=== PATIENT | male | born 1955 | race Caucasian/White ===

== ENCOUNTER → 2017-12-07 10:24 | Outpatient (CLI) | payer OTHER, SELFPAY ==
[2017-12-07 13:07] LABS: AST(SGOT) 36 U/L (15-37); Alanine Aminotransfer ALT/SGPT 32 U/L (16-61); Albumin, Serum 3.6 g/dL (3.2-5.0); Alkaline Phosphatase 138 U/L (45-117); Bilirubin, Direct 0.37 mg/dL (0.00-0.30); Globulin 3.8 g/dL (2.2-4.2); Protein, Total 7.4 g/dL (6.4-8.2)
[2017-12-08 15:30] LABS: Anti-Smooth Muscle ABS 32 Units (0-19); Ceruloplasmin 22.3 mg/dL (16.0-31.0)
[2017-12-12 16:08] LABS: Alpha Antitrypsin Serum 156 mg/dL (90-200)
[2017-12-13 15:19] LABS: ANTINUCLEAR ANTIBODIES DIRECT Negative (Negative); Anti-Mitochondrial AB <20.0 Units (0.0-20.0)
== END ==
PROVIDERS: Family Provider Family Medicine; PCP Family Medicine; Visit Provider Internal Medicine Gastroenterology
DX: K74.60 Unspecified cirrhosis of liver (principal)
CPT/HCPCS: 36415; 80076; 82103; 82104; 82390; 83516; 86038

== ENCOUNTER → 2018-01-24 14:35 | Outpatient (CLI) | payer OTHER, SELFPAY ==
[2018-01-24 16:04] LABS: Erythrocyte Sedimentation Rate 10 mm/hr (0-20)
[2018-01-24 16:18] LABS: AST(SGOT) 47 U/L (15-37); Alanine Aminotransfer ALT/SGPT 50 U/L (16-61); Albumin, Serum 3.6 g/dL (3.2-5.0); Alkaline Phosphatase 170 U/L (45-117); Globulin 3.7 g/dL (2.2-4.2); Protein, Total 7.3 g/dL (6.4-8.2)
[2018-01-24 16:38] LABS: International Normalized Ratio 1.2; Partial Thromboplast Time 33.1 Seconds (24.1-36.2); Prothrombin Time (Protime)PT. 15.2 SECONDS (11.7-14.9)
== END ==
PROVIDERS: Family Provider Family Medicine; PCP Family Medicine; Visit Provider Internal Medicine Gastroenterology
DX: K74.60 Unspecified cirrhosis of liver (principal)
CPT/HCPCS: 36415; 80076; 85610; 85652; 85730

== ENCOUNTER → 2018-03-27 09:40 | Outpatient (CLI) | payer OTHER, SELFPAY ==
[2018-03-27 12:24] LABS: Absolute Lymphocyte Count 0.99 X10^3/ul (0.83-4.51); Absolute Neutrophil Count 2.2 X10^3/uL (2.0-7.7); Basophil# 0.02 X10^3/uL; Basophil% 0.5 % (0-1); Eosinophil# 0.07 X10^3/uL; Eosinophils% 1.9 % (0-5); Hematocrit 36.4 % (40-54); Hemoglobin 12.1 g/dl (13.0-16.5); Lymphocyte # 0.99 X10^3/ul (4.0); Lymphocyte % 26.3 % (19-41); Mean Corp Hgb Conc 33.2 g/gl (32-36); Mean Corpuscular Hgb 34.9 pg (27.0-32.0); Mean Corpuscular Volume 104.9 fL (80-94); Mean Platelet Vol. 11.2 fl (6.2-12.0); Monocyte# 0.49 X10^3/uL; Neutrophil % 58.3 % (47-70); Platelet Count 59 K/mm3 (150-450); RBC Distribution Width CV 16.5 % (11.6-14.6); RBC Distribution Width SD 62.8 fl (35.1-43.9); Red Blood Count 3.47 M/mm3 (4.6-6.2); White Blood Count 3.8 K/mm3 (4.4-11.0)
[2018-03-27 12:25] LABS: POSITIVE COUNT NO; POSITIVE DIFFERENTIAL NO; POSITIVE MORPHOLOGY NO
[2018-03-27 12:36] LABS: Ferritin 714 ng/mL (26-388); Iron 193 ug/dL (65-175); Iron Binding Capacity,Total 227 ug/dL (250-450)
[2018-03-27 17:46] LABS: Xtra Tube EP Lab EXTRA TUBE
== END ==
PROVIDERS: Family Provider Family Medicine; PCP Family Medicine; Visit Provider Internal Medicine Hematology & Oncology
DX: D50.9 Iron deficiency anemia, unspecified (principal)
CPT/HCPCS: 36415; 82728; 83540; 83550; 85025

== ENCOUNTER → 2018-06-26 08:59 | Outpatient (CLI) | payer OTHER, SELFPAY ==
[2018-06-26 10:21] LABS: Absolute Lymphocyte Count 0.83 X10^3/ul (0.83-4.51); Absolute Neutrophil Count 1.8 X10^3/uL (2.0-7.7); Basophil# 0.01 X10^3/uL; Basophil% 0.3 % (0-1); Eosinophil# 0.06 X10^3/uL; Eosinophils% 1.9 % (0-5); Hematocrit 36.3 % (40-54); Hemoglobin 12.2 g/dl (13.0-16.5); Lymphocyte # 0.83 X10^3/ul (4.0); Lymphocyte % 26.3 % (19-41); Mean Corp Hgb Conc 33.6 g/gl (32-36); Mean Corpuscular Hgb 35.9 pg (27.0-32.0); Mean Corpuscular Volume 106.8 fL (80-94); Mean Platelet Vol. 11.1 fl (6.2-12.0); Monocyte# 0.45 X10^3/uL; Monocyte% 14.2 % (0-10); Platelet Count 61 K/mm3 (150-450); RBC Distribution Width CV 15.1 % (11.6-14.6); White Blood Count 3.2 K/mm3 (4.4-11.0)
[2018-06-26 10:22] LABS: POSITIVE COUNT NO; POSITIVE DIFFERENTIAL NO; POSITIVE MORPHOLOGY NO
[2018-06-26 10:41] LABS: Ferritin 383 ng/mL (26-388); Iron 82 ug/dL (65-175); Iron Binding Capacity,Total 238 ug/dL (250-450); PERCENT IRON SATURATION 34.5 % (15.0-55.0)
[2018-06-26 17:04] LABS: Xtra Tube EP Lab EXTRA TUBE
== END ==
PROVIDERS: Family Provider Family Medicine; PCP Family Medicine; Referring Provider Internal Medicine Hematology & Oncology; Visit Provider Internal Medicine Hematology & Oncology
DX: D50.9 Iron deficiency anemia, unspecified (principal)
CPT/HCPCS: 36415; 82728; 83540; 83550; 85025

== ENCOUNTER → 2019-07-07 10:39 | Outpatient (CLI) | payer OTHER, SELFPAY ==
[2019-01-08 15:03] VITALS: BMI 34.9
[2019-07-07 12:12] LABS: Absolute Lymphocyte Count 0.83 X10^3/uL (0.83-4.51); Absolute Neutrophil Count 2.6 X10^3/uL (2.0-7.7); Basophil# 0.02 X10^3/uL; Basophil% 0.5 % (0-1); Eosinophil# 0.16 X10^3/uL; Eosinophils% 3.8 % (0-5); Hematocrit 28.7 % (40-54); Hemoglobin 8.9 g/dL (13.0-16.5); Lymphocyte # 0.83 X10^3/ul (4.0); Lymphocyte % 19.9 % (19-41); Mean Corpuscular Volume 96.6 fL (80-94); Mean Platelet Vol. 10.3 fl (6.2-12.0); Monocyte# 0.55 X10^3/uL; Monocyte% 13.2 % (0-10); NRBC Flagged by Analyzer 0 % (0-5); Neutrophil # 2.61 X10^3/uL (2.7-7.7); Neutrophil % 62.4 % (47-70); Platelet Count 63 K/mm3 (150-450); RBC Distribution Width CV 18.3 % (11.6-14.6); RBC Distribution Width SD 64.4 fl (35.1-43.9); Red Blood Count 2.97 M/mm3 (4.6-6.2); White Blood Count 4.2 K/mm3 (4.4-11.0)
[2019-07-07 12:30] LABS: Ferritin 24 ng/mL (26-388); Iron 109 ug/dL (65-175); Iron Binding Capacity,Total 349 ug/dL (250-450); PERCENT IRON SATURATION 31.2 % (15.0-55.0)
== END ==
PROVIDERS: Family Provider Family Medicine; PCP Family Medicine; Referring Provider Internal Medicine Hematology & Oncology; Visit Provider Internal Medicine Hematology & Oncology
DX: D64.9 Anemia, unspecified (principal); D69.6 Thrombocytopenia, unspecified
CPT/HCPCS: 36415; 82728; 83540; 83550; 85025

== ENCOUNTER → 2019-07-31 13:45 | Outpatient (CLI) | payer OTHER, SELFPAY ==
[2019-07-10 15:19] VITALS: BMI 35.2
[2019-07-31 13:13] VITALS: BMI 35.1
--- NOTE | 2019-07-31 13:46 | CT_ITS ---
STUDY: LOW DOSE CT LUNG CANCER SCREENING REASON FOR EXAM: Male, 63 years old. The patient smoked 3 packs per day for 36 years. The patient quit smoking 9 years ago. RADIATION DOSAGE (If Supplied By Facility): CTDIvol = ( 3.40 ) mGy, DLP = ( 108.49 ) mGycm TECHNIQUE: No contrast was administered. Low dose technique was utilized (average mAS-38 and kVp 120). 1.25 mm axial source images with a slice interval of 1.25-mm were reconstructed in lung windows. 2.5 mm axial source images with a slice interval of 2.5-mm were reconstructed in lung windows. 5.0 mm axial source images with a slice interval of 5.0-mm were reconstructed in soft tissue windows. Nodule measured using lung windows on PACS and/or independent workstation with automated measurement of minimum and maximum diameter. Nodule measurement reported as average diameter rounded to the nearest whole number. Growth is defined as an increase ins size of greater than 1.5 mm. COMPARISON: None. NODULES: No suspicious nodule seen. Emphysema: No significant emphysematous changes are present. Aorta: Atherosclerotic plaques of the aortic arch. Coronary arteries: Coronary artery calcification. Mediastinal nodes: Small benign-appearing mediastinal lymph nodes. Other chest and abdominal findings: Mild degree of degenerative changes of the thoracic vertebrae. CT/Low Dose CT Lung Screening IMPRESSION: Lung-RADS category 2 - Continue annual screening with LDCT in 12 months. IMPORTANT NOTES FOR USE: ACR Lung-RADS Version 1.0 Assessment Categories Release Date: January 07, 2014 Category: Coded 0-4 bases on nodule(s) with highest degree of suspicion. Negative screen is defined as categories 1 and 2; a positive screen is defined as categories 3 and 4. Category 3 and 4A nodules that are unchanged on interval CT should be coded as category 2, and individuals returned to screening in 12 months. Category 4X: Category 3 or 4 nodules with additional imaging findings that increase the suspicion of lung cancer, such as spiculation, GGN that doubles in size in 1 year, enlarged lymph notes, etc. Category Modifiers: S (significant finding unrelated to lung cancer) and C (prior history of treated lung cancer) may be added to the 0-4 Lung-RADS Electronically Signed: Ted Melara, at 14:38 EST , Service support ,
== END ==
PROVIDERS: Family Provider Family Medicine; PCP Family Medicine; Referring Provider Nurse Practitioner Family; Visit Provider Nurse Practitioner Family
DX: Z12.2 Encounter for screening for malignant neoplasm of respiratory organs (principal); Z87.891 Personal history of nicotine dependence
CPT/HCPCS: G0297

== ENCOUNTER → 2019-09-17 11:09 | Outpatient (CLI) | payer OTHER, SELFPAY ==
[2019-09-17 11:06] VITALS: BMI 35.1
[2019-09-17 11:28] LABS: Absolute Lymphocyte Count 0.86 X10^3/uL (0.83-4.51); Absolute Neutrophil Count 2.6 X10^3/uL (2.0-7.7); Basophil# 0.02 X10^3/uL; Basophil% 0.5 % (0-1); Eosinophil# 0.12 X10^3/uL; Hematocrit 30.6 % (40-54); Lymphocyte # 0.86 X10^3/ul (4.0); Lymphocyte % 21.2 % (19-41); Mean Corp Hgb Conc 32.7 g/dL (32-36); Mean Corpuscular Hgb 33.9 pg (27.0-32.0); Mean Corpuscular Volume 103.7 fL (80-94); Mean Platelet Vol. 10.4 fl (6.2-12.0); Monocyte# 0.47 X10^3/uL; Monocyte% 11.6 % (0-10); NRBC Flagged by Analyzer 0 % (0-5); Neutrophil # 2.57 X10^3/uL (2.7-7.7); Neutrophil % 63.2 % (47-70); POSITIVE COUNT YES; POSITIVE MORPHOLOGY YES; Platelet Count 66 K/mm3 (150-450); RBC Distribution Width CV 18.9 % (11.6-14.6); RBC Distribution Width SD 71.8 fl (35.1-43.9); Red Blood Count 2.95 M/mm3 (4.6-6.2); White Blood Count 4.1 K/mm3 (4.4-11.0)
[2019-09-17 11:29] LABS: Differential Indicated SCAN CRITERIA MET
[2019-09-17 11:45] LABS: Ferritin 70 ng/mL (26-388); Iron 172 ug/dL (65-175); Iron Binding Capacity,Total 269 ug/dL (250-450); PERCENT IRON SATURATION 63.9 % (15.0-55.0)
[2019-09-17 11:58] LABS: Anisocytosis 1+; Platelet Estimate MOD DEC (ADEQ)
== END ==
LOC: LAB 11:09
PROVIDERS: Family Provider Family Medicine; PCP Family Medicine; Referring Provider Internal Medicine Hematology & Oncology; Visit Provider Internal Medicine Hematology & Oncology
DX: D64.9 Anemia, unspecified (principal)
CPT/HCPCS: 36415; 82728; 83540; 83550; 85025

== ENCOUNTER → 2019-12-21 10:11 | Outpatient (CLI) | payer OTHER, SELFPAY ==
[2019-09-18 15:10] VITALS: BMI 34.4
[2019-12-21 10:40] LABS: Absolute Lymphocyte Count 0.83 X10^3/uL (0.83-4.51); Absolute Neutrophil Count 2.2 X10^3/uL (2.0-7.7); Basophil# 0.02 X10^3/uL; Basophil% 0.5 % (0-1); Eosinophil# 0.14 X10^3/uL; Eosinophils% 3.8 % (0-5); Hematocrit 27.2 % (40-54); Hemoglobin 8.3 g/dL (13.0-16.5); Lymphocyte # 0.83 X10^3/ul (4.0); Lymphocyte % 22.6 % (19-41); Mean Corp Hgb Conc 30.5 g/dL (32-36); Mean Corpuscular Hgb 28.8 pg (27.0-32.0); Mean Corpuscular Volume 94.4 fL (80-94); Mean Platelet Vol. 10.2 fl (6.2-12.0); Monocyte# 0.47 X10^3/uL; Monocyte% 12.8 % (0-10); NRBC Flagged by Analyzer 0 % (0-5); Neutrophil # 2.21 X10^3/uL (2.7-7.7); POSITIVE COUNT YES; Platelet Count 52 K/mm3 (150-450); RBC Distribution Width SD 64.6 fl (35.1-43.9); Red Blood Count 2.88 M/mm3 (4.6-6.2); White Blood Count 3.7 K/mm3 (4.4-11.0)
[2019-12-21 11:04] LABS: Vitamin B12 1117 pg/mL (211-911)
[2019-12-21 11:14] LABS: ALB/GLOB Ratio 0.8 RATIO (0.9-2.4); AST(SGOT) 46 U/L (15-37); Alanine Aminotransfer ALT/SGPT 33 U/L (16-61); Alkaline Phosphatase 203 U/L (45-117); Anion Gap 5 (5-15); BUN 13 mg/dL (7-18); BUN/Creat Ratio 14.3 RATIO (10-20); Calcium,Total 8.2 mg/dL (8.5-10.1); Chloride 107 mmol/L (98-107); Creatinine, Serum 0.91 mg/dL (0.70-1.30); EST Glomerular Filtration Rate 90 mL/min (>60); Est Glom Filt Rate - Afr Amer 109 mL/min (>60); Ferritin 45 ng/mL (26-388); Glucose 204 mg/dL (74-106); Iron 33 ug/dL (65-175); Iron Binding Capacity,Total 301 ug/dL (250-450); Potassium 3.8 mmol/L (3.5-5.1); Sodium Level 137 mmol/L (136-145)
== END ==
LOC: LAB 10:12
PROVIDERS: PCP Family Medicine; Referring Provider Internal Medicine Hematology & Oncology; Visit Provider Internal Medicine Hematology & Oncology
DX: D50.9 Iron deficiency anemia, unspecified (principal)
CPT/HCPCS: 36415; 80053; 82607; 82728; 82746; 83540; 83550; 85025

== ENCOUNTER → 2020-02-18 09:39 | Outpatient (CLI) | payer OTHER, SELFPAY ==
[2020-01-22 15:12] VITALS: BMI 35.2
[2020-02-18 10:15] LABS: Absolute Lymphocyte Count 0.76 X10^3/uL (0.83-4.51); Absolute Neutrophil Count 2.4 X10^3/uL (2.0-7.7); Basophil# 0.02 X10^3/uL; Basophil% 0.5 % (0-1); Eosinophil# 0.12 X10^3/uL; Eosinophils% 3.1 % (0-5); Hematocrit 30.3 % (40-54); Hemoglobin 9.4 g/dL (13.0-16.5); Lymphocyte # 0.76 X10^3/ul (4.0); Lymphocyte % 19.9 % (19-41); Mean Corpuscular Hgb 31.4 pg (27.0-32.0); Mean Corpuscular Volume 101.3 fL (80-94); Mean Platelet Vol. 10.8 fl (6.2-12.0); Monocyte# 0.56 X10^3/uL; Monocyte% 14.7 % (0-10); NRBC Flagged by Analyzer 0 % (0-5); Neutrophil # 2.35 X10^3/uL (2.7-7.7); Neutrophil % 61.5 % (47-70); POSITIVE COUNT YES; POSITIVE MORPHOLOGY YES; RBC Distribution Width CV 21.7 % (11.6-14.6); Red Blood Count 2.99 M/mm3 (4.6-6.2); White Blood Count 3.8 K/mm3 (4.4-11.0)
[2020-02-18 10:20] LABS: Differential Indicated SCAN CRITERIA MET
[2020-02-18 10:43] LABS: Iron 224 ug/dL (65-175); Iron Binding Capacity,Total 266 ug/dL (250-450); PERCENT IRON SATURATION 84.2 % (15.0-55.0)
[2020-02-18 10:56] LABS: Platelet Count 47 K/mm3 (150-450)
[2020-02-18 11:00] LABS: Anisocytosis 2+; Hypochromasia 2+; Macrocytosis 1+; Platelet Estimate MOD DEC (ADEQ)
[2020-02-18 17:43] LABS: Xtra Tube EP Lab EXTRA TUBE
[2020-02-19 11:18] LABS: Pathologist Review Reviewed
--- OUTSIDE RECORDS SUMMARY | 2020-06-29 09:29 | XMS RPT_ITS | CCD ---
:1955 External Reference #:[id number] Author Organization [facility] Care Team Providers Name Role Phone Unavailable Primary Care Provider Unavailable Naumoff Unavailable Unavailable Naumoff Unavailable Unavailable Ehrler Unavailable Unavailable Iza Unavailable Unavailable Naumoff Unavailable Unavailable Naumoff Unavailable Unavailable Naumoff Unavailable Unavailable Naumoff Unavailable Unavailable Tanphaichitr Unavailable Unavailable Haynes Unavailable Unavailable Naumoff Unavailable Unavailable Naumoff Unavailable Unavailable Haynes Unavailable Unavailable Naumoff Unavailable Unavailable Naumoff Unavailable Unavailable Medications Medication Name Sig Date Prescriber Location Albuterol / COMBIVENT RESPIMAT 05-12-2020 [facility] Provider [facility] Ipratropium 20-100 mcg/actuation (64559) inhaler Inhale 1 Puff as instructed four times daily. 0 05/12/2020 Active Comment: Inhale 1 Puff as instructed four times daily. carvedilol carvedilol (COREG) 6.25 mg tablet Ccf Pro vider [facility] ([id number]) Take 6.25 mg by mouth twice daily with meals. 0 Active Comment: Take 6.25 mg by mouth twice daily with meals. Ergocalciferol ergocalciferol 50,000 06-26-2020 - Win [facility] unit capsule (VITAMIN 09-12-2020 Tacho Masters ([id number]) D2, LATRICIA) Take 1 S [facility] capsule by mouth one time a week for 12 doses. 12 capsule 0 06/26/2020 09/12/2020 Active Comment: Take 1 capsule by mouth one time a week for 12 doses. Esomeprazole esomeprazole (NEXIUM) 20 mg [facility] Provider [facility] ([id number]) capsule Take 20 mg by mouth DAILY (6 AM). 0 Active Comment: Take 20 mg by mouth DAILY (6 AM). fluticasone fluticasone [facility] Provider [facility] propion/salmeterol (ADVAIR propion/salmeterol (ADVAIR ([id number]) DISKUS INHALATION) DISKUS INHALATION) Inhale as instructed. 0 Active fluticasone propion/salmeterol (ADVAIR DISKUS Cc f [facility] (91154) INHALATION) Inhale as instructed. 0 Active fluticasone propion/salmeterol (ADVAIR DISKUS Cc [facility] (45526) INHALATION) Inhale as instructed. 0 Active fluticasone propion/salmeterol (ADVAIR DISKUS Cc f [facility] (38013) INHALATION) Inhale as instructed. 0 Active fluticasone propion/salmeterol (ADVAIR DISKUS Cc f [facility] (90818) INHALATION) Inhale as instructed. 0 Active fluticasone propion/salmeterol (ADVAIR DISKUS [facility] (42611) INHALATION) Inhale as instructed. 0 Active fluticasone propion/salmeterol (ADVAIR DISKUS Cc [facility] (26595) INHALATION) Inhale as instructed. 0 Active fluticasone propion/salmeterol (ADVAIR DISKUS Cc f [facility] (80999) INHALATION) Inhale as instructed. 0 Active fluticasone propion/salmeterol (ADVAIR DISKUS [facility] (58566) INHALATION) Inhale as instructed. 0 Active fluticasone propion/salmeterol (ADVAIR DISKUS [facility] (01871) INHALATION) Inhale as instructed. 0 Active fluticasone propion/salmeterol (ADVAIR DISKUS Cc [facility] (82136) INHALATION) Inhale as instructed. 0 Active Comment: Inhale as instructed. Furosemide furosemide (LASIX) 40 mg tablet Ccf Provi [facility] ([id number]) Take 40 mg by mouth once daily. 0 Active furosemide (LASIX) 40 mg tablet Take 40 mg by Cc f [facility] (09007) mouth twice daily. 0 Active Comment: Take 40 mg by mouth twice da neo. Take 40 mg by mouth once grisel ly. iv contrast iv contrast (will be 06-03-2020 - Win Arellano [facility] (will be provided with radiology 06-04-2020 Tacho Masters (47 195) provided with test) Indications: S [facility] radiology test) Liver transplant candidate , DIXON (nonalcoholic steatohepatitis) CT LIVER W IVCON Inject, intravenously, once for 1 dose. No IV access, insert saline lock prior to the beginning of sedation, infusion, injection of imaging exam. Discontinue saline lock post exam. If Pt. has a central line or IVAD, may access for administration according to line specific nursing protocol. Once exam is complete flush line and de-access according to line specific nursing protocol in the CT contrast administration guidelines link. 1 Each 0 06/03/2020 06/04/2020 Active Comment: CT LIVER W IVCON Inject, int ravenously, once for 1 dose. No IV access, insert saline lock prior to the beginning of sedation, infusion, injection of imaging exam. Discontinue saline lock post exam. If Pt. has a central line or IVAD, may access for administration according to line specific nursing protocol. Once exam is complete flush line and de-access according to line specific nursing pro tocol in the CT contrast administration guidelines link. Lactobac no.41/Bifidobact Lactobac no.41/Bifidobact Cc f Provider [facility] no.7 (PROBIOTIC-10 ORAL) no.7 (PROBIOTIC-10 ORAL) ([facility]) Take by mouth. 0 Active Lactobac no.41/Bifidobact no.7 (PROBIOTIC-10 Ccf [facility] ([facility]) ORAL) Take by mouth. 0 Active Lactobac no.41/Bifidobact no.7 (PROBIOTIC-10 Cc Provider [facility] ([facility]) ORAL) Take by mouth. 0 Active Lactobac no.41/Bifidobact no.7 (PROBIOTIC-10 [facility] Provider [facility] ([facility]) ORAL) Take by mouth. 0 Active Lactobac no.41/Bifidobact no.7 (PROBIOTIC-10 Cc Provider [facility] ([facility]) ORAL) Take by mouth. 0 Active Lactobac no.41/Bifidobact no.7 (PROBIOTIC-10 Ccf [facility] ([facility]) ORAL) Take by mouth. 0 Active Lactobac no.41/Bifidobact no.7 (PROBIOTIC-10 [facility] ([facility]) ORAL) Take by mouth. 0 Active Lactobac no.41/Bifidobact no.7 (PROBIOTIC-10 [facility] Provider [facility] ([id number]) ORAL) Take by mouth. 0 Active Lactobac no.41/Bifidobact no.7 (PROBIOTIC-10 [facility] ([facility]) ORAL) Take by mouth. 0 Active Lactobac no.41/Bifidobact no.7 (PROBIOTIC-10 [facility] ([facility]) ORAL) Take by mouth. 0 Active Lactobac no.41/Bifidobact no.7 (PROBIOTIC-10 [facility] ([facility]) ORAL) Take by mouth. 0 Active Lactobac no.41/Bifidobact no.7 (PROBIOTIC-10 [facility] ([facility]) ORAL) Take by mouth. 0 Active Lactobac no.41/Bifidobact no.7 (PROBIOTIC-10 [facility] ([facility]) ORAL) Take by mouth. 0 Active Lactobac no.41/Bifidobact no.7 (PROBIOTIC-10 [facility] ([facility]) ORAL) Take by mouth. 0 Active Comment: Take by mouth. Lactulose lactulose (CONSTULOSE ORAL) [facility]. 0 Active lactulose (CONSTULOSE ORAL) Take by mouth. 0 [facility] ([facility]) Active lactulose (CONSTULOSE ORAL) Take by mouth. 0 [facility] ([facility]) Active lactulose (CONSTULOSE ORAL) Take by mouth. 0 [facility] ([facility]) Active lactulose (CONSTULOSE ORAL) Take by mouth. 0 [facility] ([facility]) Active lactulose (CONSTULOSE ORAL) Take by mouth. 0 [facility] ([facility]) Active lactulose (CONSTULOSE ORAL) Take by mouth. 0 [facility] ([facility]) Active lactulose (CONSTULOSE ORAL) Take by mouth. 0 [facility] ([facility]) Active lactulose (CONSTULOSE ORAL) Take by mouth. 0 [facility] ([facility]) Active lactulose (CONSTULOSE ORAL) Take by mouth. 0 [facility] ([facility]) Active lactulose (CONSTULOSE ORAL) Take by mouth. 0 [facility] ([facility]) Active lactulose (CONSTULOSE ORAL) Take by mouth. 0 [facility] ([id number]) Active lactulose (CONSTULOSE ORAL) Take by mouth. 0 [facility] Provider [facility] ([id number]) Active lactulose (CONSTULOSE ORAL) Take by mouth. 0 [facility] Provider [facility] ([id number]) Active Comment: Take by mouth. Methylcellulose Methylcellulose, Laxative, Ccf Provide r [facility] (CITRUCEL) 500 mg tab Take by (39477) mouth. 0 Active Comment: Take by mouth. perflutren lipid perflutren lipid 06-03-[address] [facility] microspheres microspheres (DEFINITY) [facility] ([id number]) (DEFINITY) 1.1 mg/mL 1.1 mg/mL injection (to injection (to be be provided with echo provided with echo procedure) Indications: procedure) Liver transplant candidate , DIXON (nonalcoholic steatohepatitis) Inject 1.3 mL intravenously as needed for up to 1 dose. Instructions Administration Instructions: If no IV access, insert saline lock prior to administering contrast. Discontinue saline lock post exam. If patient has central line or IVAD, may access for administration according to line specific nursing protocol. Once exam is complete, flush line and de-access per line specific nursing protocol. Diluted IV Bolus: Dilute 1.3 ml of Definity with 8.7 ml of preservative-free saline 1.3 mL 0 06/03/2020 Active perflutren lipid microspheres 06-03-2020 [facility] ([id number]) (DEFINITY) 1.1 mg/mL injection (to be provided with echo procedure) Indications: Liver transplant candidate , DIXON (nonalcoholic steatohepatitis) Inject 1.3 mL intravenously as needed for up to 1 dose. Instructions Administration Instructions: If no IV access, insert saline lock prior to administering contrast. Discontinue saline lock post exam. If patient has central line or IVAD, may access for administration according to line specific nursing protocol. Once exam is complete, flush line and de-access per line specific nursing protocol. Diluted IV Bolus: Dilute 1.3 ml of Definity with 8.7 ml of preservative-free saline 1.3 mL 0 06/03/2020 Active perflutren lipid microspheres 06-03-2020 [facility] ([id number]) (DEFINITY) 1.1 mg/mL injection (to be provided with echo procedure) Indications: Liver transplant candidate , DIXON (nonalcoholic steatohepatitis) Inject 1.3 mL intravenously as needed for up to 1 dose. Instructions Administration Instructions: If no IV access, insert saline lock prior to administering contrast. Discontinue saline lock post exam. If patient has central line or IVAD, may access for administration according to line specific nursing protocol. Once exam is complete, flush line and de-access per line specific nursing protocol. Diluted IV Bolus: Dilute 1.3 ml of Definity with 8.7 ml of preservative-free saline 1.3 mL 0 06/03/2020 Active perflutren lipid microspheres 06-03-2020 [facility] ([id number]) (DEFINITY) 1.1 mg/mL injection (to be provided with echo procedure) Indications: Liver transplant candidate , DIXON (nonalcoholic steatohepatitis) Inject 1.3 mL intravenously as needed for up to 1 dose. Instructions Administration Instructions: If no IV access, insert saline lock prior to administering contrast. Discontinue saline lock post exam. If patient has central line or IVAD, may access for administration according to line specific nursing protocol. Once exam is complete, flush line and de-access per line specific nursing protocol. Diluted IV Bolus: Dilute 1.3 ml of Definity with 8.7 ml of preservative-free saline 1.3 mL 0 06/03/2020 Active perflutren lipid microspheres 06-03-2020 [facility] ([id number]) (DEFINITY) 1.1 mg/mL injection (to be provided with echo procedure) Indications: Liver transplant candidate , DIXON (nonalcoholic steatohepatitis) Inject 1.3 mL intravenously as needed for up to 1 dose. Instructions Administration Instructions: If no IV access, insert saline lock prior to administering contrast. Discontinue saline lock post exam. If patient has central line or IVAD, may access for administration according to line specific nursing protocol. Once exam is complete, flush line and de-access per line specific nursing protocol. Diluted IV Bolus: Dilute 1.3 ml of Definity with 8.7 ml of preservative-free saline 1.3 mL 0 06/03/2020 Active perflutren lipid microspheres 06-03-2020 [facility] ([id number]) (DEFINITY) 1.1 mg/mL injection (to be provided with echo procedure) Indications: Liver transplant candidate , DIXON (nonalcoholic steatohepatitis) Inject 1.3 mL intravenously as needed for up to 1 dose. Instructions Administration Instructions: If no IV access, insert saline lock prior to administering contrast. Discontinue saline lock post exam. If patient has central line or IVAD, may access for administration according to line specific nursing protocol. Once exam is complete, flush line and de-access per line specific nursing protocol. Diluted IV Bolus: Dilute 1.3 ml of Definity with 8.7 ml of preservative-free saline 1.3 mL 0 06/03/2020 Active perflutren lipid microspheres 06-03-2020 [facility] ([id number]) (DEFINITY) 1.1 mg/mL injection (to be provided with echo procedure) Indications: Liver transplant candidate , DIXON (nonalcoholic steatohepatitis) Inject 1.3 mL intravenously as needed for up to 1 dose. Instructions Administration Instructions: If no IV access, insert saline lock prior to administering contrast. Discontinue saline lock post exam. If patient has central line or IVAD, may access for administration according to line specific nursing protocol. Once exam is complete, flush line and de-access per line specific nursing protocol. Diluted IV Bolus: Dilute 1.3 ml of Definity with 8.7 ml of preservative-free saline 1.3 mL 0 06/03/2020 Active perflutren lipid microspheres 06-03-2020 [facility] ([id number]) (DEFINITY) 1.1 mg/mL injection (to be provided with echo procedure) Indications: Liver transplant candidate , DIXON (nonalcoholic steatohepatitis) Inject 1.3 mL intravenously as needed for up to 1 dose. Instructions Administration Instructions: If no IV access, insert saline lock prior to administering contrast. Discontinue saline lock post exam. If patient has central line or IVAD, may access for administration according to line specific nursing protocol. Once exam is complete, flush line and de-access per line specific nursing protocol. Diluted IV Bolus: Dilute 1.3 ml of Definity with 8.7 ml of preservative-free saline 1.3 mL 0 06/03/2020 Active perflutren lipid microspheres 06-03-2020 [facility] ([id number]) (DEFINITY) 1.1 mg/mL injection (to be provided with echo procedure) Indications: Liver transplant candidate , DIXON (nonalcoholic steatohepatitis) Inject 1.3 mL intravenously as needed for up to 1 dose. Instructions Administration Instructions: If no IV access, insert saline lock prior to administering contrast. Discontinue saline lock post exam. If patient has central line or IVAD, may access for administration according to line specific nursing protocol. Once exam is complete, flush line and de-access per line specific nursing protocol. Diluted IV Bolus: Dilute 1.3 ml of Definity with 8.7 ml of preservative-free saline 1.3 mL 0 06/03/2020 Active perflutren lipid microspheres 06-03-2020 [facility] ([id number]) (DEFINITY) 1.1 mg/mL injection (to be provided with echo procedure) Indications: Liver transplant candidate , DIXON (nonalcoholic steatohepatitis) Inject 1.3 mL intravenously as needed for up to 1 dose. Instructions Administration Instructions: If no IV access, insert saline lock prior to administering contrast. Discontinue saline lock post exam. If patient has central line or IVAD, may access for administration according to line specific nursing protocol. Once exam is complete, flush line and de-access per line specific nursing protocol. Diluted IV Bolus: Dilute 1.3 ml of Definity with 8.7 ml of preservative-free saline 1.3 mL 0 06/03/2020 Active perflutren lipid microspheres 06-03-2020 [facility] ([id number]) (DEFINITY) 1.1 mg/mL injection (to be provided with echo procedure) Indications: Liver transplant candidate , DIXON (nonalcoholic steatohepatitis) Inject 1.3 mL intravenously as needed for up to 1 dose. Instructions Administration Instructions: If no IV access, insert saline lock prior to administering contrast. Discontinue saline lock post exam. If patient has central line or IVAD, may access for administration according to line specific nursing protocol. Once exam is complete, flush line and de-access per line specific nursing protocol. Diluted IV Bolus: Dilute 1.3 ml of Definity with 8.7 ml of preservative-free saline 1.3 mL 0 06/03/2020 Active perflutren lipid microspheres 06-03-2020 [facility] ([id number]) (DEFINITY) 1.1 mg/mL injection (to be provided with echo procedure) Indications: Liver transplant candidate , DIXON (nonalcoholic steatohepatitis) Inject 1.3 mL intravenously as needed for up to 1 dose. Instructions Administration Instructions: If no IV access, insert saline lock prior to administering contrast. Discontinue saline lock post exam. If patient has central line or IVAD, may access for administration according to line specific nursing protocol. Once exam is complete, flush line and de-access per line specific nursing protocol. Diluted IV Bolus: Dilute 1.3 ml of Definity with 8.7 ml of preservative-free saline 1.3 mL 0 06/03/2020 Active perflutren lipid microspheres 06-03-2020 [facility] ([id number]) (DEFINITY) 1.1 mg/mL injection (to be provided with echo procedure) Indications: Liver transplant candidate , DIXON (nonalcoholic steatohepatitis) Inject 1.3 mL intravenously as needed for up to 1 dose. Instructions Administration Instructions: If no IV access, insert saline lock prior to administering contrast. Discontinue saline lock post exam. If patient has central line or IVAD, may access for administration according to line specific nursing protocol. Once exam is complete, flush line and de-access per line specific nursing protocol. Diluted IV Bolus: Dilute 1.3 ml of Definity with 8.7 ml of preservative-free saline 1.3 mL 0 06/03/2020 Active perflutren lipid microspheres 06-03-2020 [facility] ([id number]) (DEFINITY) 1.1 mg/mL injection (to be provided with echo procedure) Indications: Liver transplant candidate , DIXON (nonalcoholic steatohepatitis) Inject 1.3 mL intravenously as needed for up to 1 dose. Instructions Administration Instructions: If no IV access, insert saline lock prior to administering contrast. Discontinue saline lock post exam. If patient has central line or IVAD, may access for administration according to line specific nursing protocol. Once exam is complete, flush line and de-access per line specific nursing protocol. Diluted IV Bolus: Dilute 1.3 ml of Definity with 8.7 ml of preservative-free saline 1.3 mL 0 06/03/2020 Active perflutren lipid microspheres 06-03-2020 [facility] ([id number]) (DEFINITY) 1.1 mg/mL injection (to be provided with echo procedure) Indications: Liver transplant candidate , DIXON (nonalcoholic steatohepatitis) Inject 1.3 mL intravenously as needed for up to 1 dose. Instructions Administration Instructions: If no IV access, insert saline lock prior to administering contrast. Discontinue saline lock post exam. If patient has central line or IVAD, may access for administration according to line specific nursing protocol. Once exam is complete, flush line and de-access per line specific nursing protocol. Diluted IV Bolus: Dilute 1.3 ml of Definity with 8.7 ml of preservative-free saline 1.3 mL 0 06/03/2020 Active perflutren lipid microspheres 06-03-2020 [facility] ([id number]) (DEFINITY) 1.1 mg/mL injection (to be provided with echo procedure) Indications: Liver transplant candidate , DIXON (nonalcoholic steatohepatitis) Inject 1.3 mL intravenously as needed for up to 1 dose. Instructions Administration Instructions: If no IV access, insert saline lock prior to administering contrast. Discontinue saline lock post exam. If patient has central line or IVAD, may access for administration according to line specific nursing protocol. Once exam is complete, flush line and de-access per line specific nursing protocol. Diluted IV Bolus: Dilute 1.3 ml of Definity with 8.7 ml of preservative-free saline 1.3 mL 0 06/03/2020 Active perflutren lipid microspheres 06-03-2020 [facility] ([id number]) (DEFINITY) 1.1 mg/mL injection (to be provided with echo procedure) Indications: Liver transplant candidate , DIXON (nonalcoholic steatohepatitis) Inject 1.3 mL intravenously as needed for up to 1 dose. Instructions Administration Instructions: If no IV access, insert saline lock prior to administering contrast. Discontinue saline lock post exam. If patient has central line or IVAD, may access for administration according to line specific nursing protocol. Once exam is complete, flush line and de-access per line specific nursing protocol. Diluted IV Bolus: Dilute 1.3 ml of Definity with 8.7 ml of preservative-free saline 1.3 mL 0 06/03/2020 Active Comment: Inject 1.3 mL intravenously as needed for up to 1 dose. Instructions Administration Instructions: If no IV access, insert saline lock prior to administering contrast. Disc ontinue saline lock post exam. If patient has central line or IVAD, may ac cess for administration according to line specific nursing protocol. O nce exam is complete, flush line and de-access per line specific nursing pr otocol. Diluted IV Bolus: Dilute 1.3 ml of Definity with 8.7 ml of pres ervative-free saline rifAXIMin rifAXIMin (XIFAXAN) 550 [id number][facility] Take by mouth twice daily. 0 Active Comment: Take by mouth twice daily. Sertraline sertraline (ZOLOFT) 50 mg tablet Ccf [facility] ([id number]) Take 50 mg by mouth once daily. 0 Active Comment: Take 50 mg by mouth once grisel ly. Spironolactone spironolactone (ALDACTONE) 100 Ccf [facility] ([id number]) mg tablet Take 200 mg by mouth once daily. 0 Active spironolactone (ALDACTONE) 100 mg tablet Take Cc f [facility] ([id number]) 100 mg by mouth once daily. 0 Active Comment: Take 100 mg by mouth once da neo. Take 200 mg by mouth once da neo. Vitamin A vitamin A (AQUASOL 06-26-2020 - Win [facility]) 10,000 unit 07-26-2020 [facility] ([id number]) capsule Take 1 capsule by mouth once daily. 30 capsule 0 06/26/2020 07/26/2020 Active Comment: Take 1 capsule by mouth once daily. 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 fibrillation System ([id number]) Chronic obstructive Chronic obstructive 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 [facility] pulmonary disease and pulmonary disease, System (65234) bronchiectasis unspecified Deficiency and other Anemia, unspecified Active 05-15-2017 - [facility] anemia System (48804) Diabetes mellitus with Type 2 diabetes mellitus Active 2016 [facility] Health complications with other specified System (58235) complication Diabetes mellitus without Type 2 diabetes mellitus Active [facility] Health complication without complications System (16525) Disorders of lipid Hyperlipidemia, 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 [facility] Health metabolism unspecified System (82755) Essential hypertension Essential (primary) 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 [facility] hypertension System (65176) External Injury - Adverse Adverse effect of other Active 05-13 [facility] Health effects of medical drugs systemic antibiotics, System (78015) initial encounter Hepatitis Nonalcoholic Active [facility] (12866) Infective arthritis and Osteomyelitis of Active 05-15-2017 [facility] osteomyelitis (except vertebra, site Syst em (61844) that caused by unspecified tuberculosis or sexually transmitted di Nutritional deficiencies Unspecified severe 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 [facility] protein-calorie System (0000 0) malnutrition Other gastrointestinal Constipation, 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 Health disorders unspecified System (18077) Other lower respiratory Dyspnea Active [facility] disease (63851) Other nervous system Metabolic encephalopathy Active 05-28-20 [facility] Health disorders System (48000) Other nutritional; Obesity, unspecified Active 05-15-2017 [facility] endocrine; and metabolic Sys tem (60839) disorders Screening or history of Tobacco use and exposure Active 05-28 [facility] mental health and - finding System (00 000) substance abuse Septicemia Sepsis, unspecified Active 05-15-2017 [facility] He alth organism System (67313) Spondylosis; Discitis, unspecified, 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 [facility] intervertebral disc lumbar region System (22388) disorders; other back problems Unclassified 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 [facility] Health of oral hypoglycemic System (66138) drugs Unclassified Body mass index (BMI) Active 05-15-2017 [facility] 33.0-33.9, adult System (000 00) Unclassified Awaiting transplantation Active [facility] of liver (59523) Unclassified Drug therapy finding Active [facility] (40816) Unclassified Patient encounter status Active [facility] (99265) Past or Other Problems Category Problem Name Status Date Location Acute and unspecified Acute kidney failure, Completed 05-28-2017 - [facility] renal failure unspecified System (34608) Bacterial infection Klebsiella pneumoniae Completed 06-27-2017 - [facility] [K. 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 [facility] Author Type: Computer Network Engineer ([id number]) Type: Progress Notes Filed: 06/26/2020 5:34 PM Note Text: [facility] Psychosocial Evaluation Name: Becky Hutchison Assessment date: June 26, 2020 Location: Pt and are located in their home and are bein g seen virtually due to Covid 19 precautions. Patient consented to participate in this transplant psychoso cial assessment: Yes During this assessment, patient chose to include: Pt agrees to have his [place] Hutchison participate in the assessment. IDENTIFYING INFORMATION: Patient prefers to be called: Rosi Age: [age] year old Lives now: Becky Hutchison [phone] [id number] [facility] [id number] [facility] IMPRESSION: Social Support Pt has strong support from his [place] who will be his pr imary caregiver post-transplant. Pt's secondary caregivers will be his son Baldomero and daughter Carmen. 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 Pt will have [place] [facility] disability until he reaches the age to receiv e Social Security benefits. No issues or problems have been reported about pt financial situation. Chemical Dependency Patient reports he began smoking cigarettes when he was 20 a nd quit March 15 2010 when he had a heart attack. Pt reports he averaged 2 pa cks a day for 35 yrs. Patient admits to a remote history of marijuana use but has not used for more than 42 years. Patient stated he smoked marijuana weekl y and discontinued all use when his first child was born. Pt denie s other illicit drug use. Patient reports his last drink was 3 years ago. Pt stated he usually consumed alcohol on weekends and would consume 3-4 beers per episode. Pt had utox screen completed on 06/23/2020 which returned sligh tly elevated for ethanol: [ Ethanol, Urine <11 mg/d 14 High]. Patient den ies alcohol use and a Peth test was requested. Pt will be monitored and have screening moving forward. Patient does not meet DSM V criteria for Alc ohol Use Disorder and therefore meets OSOTC chemical dependency guide lines. Mental Health/Coping Although patient states no history of mental health concerns patient is currently taking Zoloft. Patient started taking Zoloft durin g a 2 month hospital stay a few years ago to help him remain calm and he lp with anxiety. Patient continues with Zoloft because he finds it t o be helpful. Compliance Patient has good adherence to his medical appointments and m edication regimen. Patient's manages his medication. Comprehension of Medical Issues and Transplant Patient states he has a good understanding of his current me dical condition and receives help with his comprehension of medica l information from his . Patient reports he is surprised at the speed his illness is progressing. PLAN: Are there any interventions, follow up or consults needed: Y es Patient will need to be monitored for alcohol use through te sting. RECOMMENDATION: Psychosocial risk: (related to patient's ability to adhere t o a transplant regimen and be successful) Patient presented as a low psychosocial risk and is suitable for transplant however patient's ethanol levels will need to be monitored through repeat tox screens to ensure continued abstinence fr om all alcohol. SIPAT Total Score: 19 SIPAT Score Interpretation 0 - 6 Excellent candidate ? Recommend to list for transplantation without reservations . 7 - 20 Good candidate ? Recommend to list for transplantation - although monitorin g of identified risk factors may be required. 21 - 39 Minimally Acceptable Candidate ? Consider Listing. Identified risk factors must be satisfac torily addressed before representing for consideration. 40 - 69 Poor Candidate ? Recommend deferral while identified risks are satisfactori ly addressed. > 70 High Risk candidate, significant risks identified ? Surgery is not recommended while identified risk factors c ontinue to be present. UNDERSTANDING OF MEDICAL DIAGNOSIS AND NEED FOR TRANSPLANT: Diagnosis: Cirrhosis of the liver - [place] Diagnosed when: November 2017 Symptoms: Meld of 22, fluid on stomach. anemic, juandice, ti red, fatigued Meld Score: MELD-Na score: 22 at 06/23/2020 3:55 PM MELD score: 17 at 06/23/2020 3:55 PM Calculated from: Serum Creatinine: 0.90 mg/dL (Rounded to 1 mg/dL) at 020 3:55 PM Serum Sodium: 131 mmol/L at 06/23/2020 3:55 PM Total Bilirubin: 7.1 mg/dL at 06/23/2020 3:55 PM INR(ratio): 1.3 at 06/23/2020 3:55 PM Age: 64 years 10 months PCP: Dr. Valdivia Do you have any moral, methodist, or ethnic views against tr ansplant: no Have you ever been transplanted, evaluated, or listed at [facility] ther center: No PERSONAL HISTORY: Citizenship Where were you born: [facility] Race/ethnicity: White Primary language: Moldovan Grew up where: [place] Parental information: Both parents Sibling information: 4 brothers, pt is the oldest Describes upbringing as: Liked it- grew up in the in the [place] home he currently is in. Pt lived near his grandparents and visited them often Ever ill, abused, neglected as a child: No Do you have any history of developmental delays/special education/PT/OT/SP: No Any reading/comprehension problems then or now: No How was school for you: Okay- Completed an agricultural prog alessandro in last 2 years of high school. 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 Now on disability (l aldo-term) Relationship History AND Current Status: 42 years to [place] Children: 3 children, 2 daughters and one son; one daughter is in [place] FUNCTIONING ABILITIES AND HOME ENVIRONMENT: Home set up: Split level- 5 steps total. Had back surgery 5 years ago and equipped the home at that time with appropriate items that p hermesvides assistance to pt in the home, handle bars in the tub, shower seat, etc. Resides with: Pets: 2 cats ADLs: Independent, sometimes will help pt IADLs: Independent is able but completes Do you drive? Yes but has been driving. Experienced inga e symptoms of HE If you don't or can't due to illness, who will transport: Wi fe Can patient and/or patient care secretary identify the medications: Pt is aware but manages medication for pt at this time What system does the patient use to organize the medications : organizes weekly pill box Caregiving for others? No Impact of illness on daily life: Fatigue, had to quit his candida b. Lost muscle tone. HOBBIES: What are your hobbies/interests: Dulce pre Covid 19, zabrina ng at their camper located on a permanent campsite FINANCIAL: Medical insurance: [employer] through Pt employment. On lo ng term disability that lasts till age 67 Prescription coverage: same Which pharmacy do you use: [facility] [employer] [facility] Val[place]ao benefits: Not needed Are you on disability: yes since when: March 2020 Household income: Financially stable. Medical leave: N/A Provided patient with financial worksheet for financial plan meg: Verbally reviewed CAREGIVER/SUPPORT PLAN: Who will be your primary caregiver: [place] Hutchison Contact #: [phone] Availability: is a analyst programmer and can take time off as ne eded and states she is planning to quit if pt has a liver transplant. 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 1. If several caregivers are involved, will they be able to cooperate with each other: Yes 2. How comfortable are you asking for and/or receiving help: Pt states it depends on what it is he needs help with. Lately more open t o asking for help 3. Have you been or are you currently a caregiver for someon e else: no 4. Are there any ongoing family disagreements or life issues that may be impacted by the transplant: No 5. Does anyone in your household or caregiving team use toba account support associate, abuse alcohol or illicit substances: no Has the caregiver commitment been reviewed: Verbally Has it been signed: no MENTAL HEALTH HISTORY: Indicate mental status: Status: Alert Lethargic Inconsistent Sedated/other: Orientation: Person Place Time Situation Patient had difficulty hearing SW through Zoom. repeate d questions to patient. Indicate cognitive function: Attentive: Yes Memory problems: yes- every once in a while Hepatic Encephal opathy: Yes *if yes, is it related to another medical condition: No Indicate appearance: Malnourished Obese Poor hygiene Body image concerns Appears stated age Well groomed Other: Indicate affect: Within normal limits Easily engaged in conv ersation Cooperative Flat Angry Anxious Blunted Dysphoric Euphoric Other: Do you have a history of clinical mental health issues: Rebecca ley no history of mental health issues but is on antidepressants (Zoloft). Started when he was hospitalized for 2 months to help with anxiety and ca lm him. Depression: Anxiety Panic attacks Bipolar disorder Schizophrenia OCD Anorexia Bulimia ADHD PTSD BPD Other:Currently taking Zoloft- in hospital for 2 months and continued- found it helpful. Life changing events as an adult: Yes, heart attack, lost an eye when he was 28 while working. Has anyone ever physically/emotionally/sexually abused you: No Have you ever attempted suicide or thought of harming yourse lf or others: No Have you ever been hospitalized in a psychiatric hospital: N o Do you currently or have you ever seen a therapist/counselor /psychiatrist: No Have you used medications for mental health issues, sleep, a nd/or pain now or in the past: Zoloft only Is a referral to transplant psychiatry indicated for further evaluation or screening: No COPING: What helps you cope when you're feeling stressed: Being arou nd and talking to his Are you a spiritual or methodist person: sometimes, believes in God What are the stressors in your life: Used to have stress wit h work - not now Have you ever coped by using a substance (food, tobacco, souleymane gs, alcohol): Used to smoke CHEMICAL DEPENDENCY: Tobacco Have you ever smoked/chewed tobacco: Began when he was 20 an d quit March 15, 2020. Pt reports smoking 2 packs for 35 yrs Cessation resources discussed AND explained: Drugs Have you ever used any illicit drugs: Marijuana: When he was a teenager, before children. Weekly u se Cocaine: No Heroin: No Any IV use: No If yes to any drugs, when was your last use: 42 years ago Was a tox screen done: Yes- utox screen completed 06/23/2020 and displayed elevated ethanol Ethanol, Urine <11 mg/dL 14High Patient denies any alcohol use Are you currently taking any prescribed narcotics: no Alcohol Do you drink any alcohol: No- past When was the last time you consumed any alcohol at all: Pt sybil alvarez it has been 3 years since his last drink When did you start drinking/using: Age 20 History of use: weekend 3 - 4 beers What did you use or drink: Beer How much: 3-4 beers Period of heaviest drinking/use: None reported Within in the past 12 months: How many times per week (or month) did you drink/use: None w ithin the last year How much did you use on average per occasion: N/A When you were first diagnosed with your liver disease, were you told to stop drinking/using substances: No- but knew that he should not be drinking If yes, were you able to stop at that time: Alcohol/drug use consequences: No Rehab history: None DSM-V Severity Factors 1. The substance is often taken in larger amounts or over a longer period than was intended: no 2. There is a persistent desire or unsuccessful effort to cu t down or control use of the substance: No 3. A great deal of time is spent in activities necessary to obtain the substance, use the substance, or recover from its effects: N o 4. Craving, or a strong desire or urge to use the substance: No 5. Recurrent use of the substance resulting in a failure to fulfill major role obligations at work, school, or home: No 6. Continued use of the substance despite having persistent or recurrent social or interpersonal problems caused or exacerbated by th e effects of its use: No 7. Important social, occupational, or recreational activitie s are given up or reduced because of use of the substance: No 8: Recurrent use of the substance in situations in which it is physically hazardous: No 9: Use of the substance is continued despite knowledge of callahan ving a persistent or recurrent physical or psychological problem th at is likely to have been caused or exacerbated by the substance: No 10. Tolerance, as defined by either of the following: No A. A need for markedly increased amounts of the substance to achieve intoxication of desired effect B. A markedly diminished effect with continued use of the sa me amount of the substance 11. Withdrawal, as manifested by either of the following: No A. The characteristic withdrawal syndrome for that substance (as specified in the DSM-V for each substance) B. The substance (or a closely related substance) is taken t o relieve or avoid withdrawal symptoms. 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 re: knowledge of transplant: Pt reports his has been resear alec transplant and shares information with him The patient best learns new information: Verbal- likes to callahan ve explain to him because she does research The caregiver best learns new information: Verbal Know a txp patient: No Volunteer to contact: Have read stories of other transplant pts. 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 Compliance concerns: No problems Ability to adhere to a therapeutic regimen: Motivation for a transplant: Agrees with the decision and wa nts to be around for his Is anyone interested as a living donor: Brother, Eliel ashford o is 58. Has filled out online forms PSYCHOSOCIAL RISKS: Reviewed psychosocial risks of transplant:adherence treatmen t protocols, ability to understand transplant center's system of care, ac tive psychiatric diagnosis, financial resources or support, body image/scar: Yes reviewed Discussed MELD score, evaluation process, selection committe e, listing, waiting, the call, surgery, hospital recovery time, hospital stay, discharge, terminal operations manager recovery. Yes reviewed ADVANCE DIRECTIVES: Durable power of title attorney: Pt and are interested. MIKA gomez ovided education and will mail as requested Living will: None Information given: Will mail if pt is not able to obtain on line or at next [facility] appointment. Overall impression, plan, and recommendation are listed at t he beginning of the assessment for ease of communication and continuity o f care purposes. EDGARD Alvarez, [facility] Liver Transplant Team Social Work [facility] on 2020-06-26 CNSW Social Work ([facility]) Normal 0 [facility] Rebecca HUTCHISONBECKY Shannon ([id number]) 1955 [address] [facility] Date Time Provider Department ([id number]) 06/26/20 2:00 PM PERRI WARE TXCTMN During your visit today, we recorded the following informati on about you: MIKA Alvarez, PHARMACEUTICAL SPECIALTY REPRESENTATIVE 06/26/2020 5:34 PM Signed [facility] Psychosocial Evaluation Name: Becky Hutchison Assessment date: June 26, 2020 Location: Pt and are located in their home and ar e being seen virtually due to Covid 19 precautions. Patient consented to partici gonzalez in this transplant psychosocial assessment: Yes During this assessment, patient chose to include: Pt a grees to have his Vigrinia Hutchison participate in the assessment. IDENTIFYING INFORMATION: Patient prefers to be called: Rosi Age: [age] year old Lives now: Becky Hutchison [phone] [id number] [facility] [id number] [facility] IMPRESSION: Social Support Pt has strong support from his [place] who will be his primary caregiver post-transplant. Pt's secondary caregivers will be his son Baldomero and daughter Carmen. Insurance/Financial Pt medical / prescription coverage is under [place] [employer] and is transitioning to [place] [facility] disability policy through his work. Pt will hav e terminal operations manager disability until he reaches the age to receive Social [employer] benefits. No issues or problems have been reported about pt financial sit uation. Chemical Dependency Patient reports he began smo abeba cigarettes when he was 20 and quit March 15 2010 when he had a heart attack. Pt reports he averaged 2 p acks a day for 35 yrs. Patient admits to a remote history of marijuana use but has not used for more than 42 years. Patient stated he smoked marijuan a weekly and discontinued all use when his first child was born. Pt denies other illicit d rug use. Patient reports his last drink was 3 years ago. Pt stated he usually consumed alcohol on weekends and would consume 3-4 beers per episode. Pt had utox screen completed on 06/23/2020 which ret urned slightly elevated for ethanol: [ Ethanol, Urine <11 mg/d 14 High]. Patient denies alcoh ol use and a Peth test was requested. Pt will be monitored and have screening moving forward. Patient does not meet DSM V criteria for Alcohol Use Disorder and therefore meets OSOTC chemical dependency guidelines. Mental Health/Coping Although patient states no history of mental health concerns patient is currently taking Zoloft. Patient started taking Zoloft durin g a 2 month hospital stay a few years ago to help him remain calm and help with anxiety. Patient continues with Zoloft because he finds it to be help ful. Compliance Patient has good adherence to his medica l appointments and medication regimen. Patient's manages his medication. Comprehension of Medical Issues and Transplant Patient states he has a good understanding of his current medical condition and receives help with his comprehension of medical information from his . Patient reports he is surprised at the speed his illness is progressing. PLAN: Are there any interventions, follow up or consults needed: Y es Patient will need to be monitored for alcohol use through te sting. RECOMMENDATION: Psychosocial risk: (related to patient's ability to adhere t o a transplant regimen and be successful) Patient presented as a low psychosocial risk and is suitab le for transplant however patient's ethanol levels will need to be monitored through repeat tox screens to ensure continued abstinence from all alcohol. SIPAT Total Score: 19 SIPAT Score Interpretation 0 - 6 Excellent candidate ? Recommend to list for transplantation without reservations . 7 - 20 Good candidate ? Recommend to list for transplantation - although monitor ing of identified risk factors may be required. 21 - 39 Minimally Acceptable Candidate ? Consider Listing. Identified risk factors must be sa tisfactorily addressed before representing for consideration. 40 - 69 Poor Candidate ? Recommend deferral while identified risks are satisfactori ly addressed. > 70 High Risk candidate, significant risks identified ? Surgery is not recommended while identified risk factors c ontinue to be present. UNDERSTANDING OF MEDICAL DIAGNOSIS AND NEED FOR TRANSPLANT: Diagnosis: Cirrhosis of the liver - DIXON Diagnosed when: November 2017 Symptoms: Meld of 22, fluid on stomach. anemic, juandice, ti red, fatigued Meld Score: MELD-Na score: 22 at 06/23/2020 3:55 PM MELD score: 17 at 06/23/2020 3:55 PM Calculated from: Serum Creatinine: 0.90 mg/dL (Rounded to 1 mg/dL) at 020 3:55 PM Serum Sodium: 131 mmol/L at 06/23/2020 3:55 PM Total Bilirubin: 7.1 mg/dL at 06/23/2020 3:55 PM INR(ratio): 1.3 at 06/23/2020 3:55 PM Age: 64 years 10 months PCP: Dr. Valdivia Do you have any moral, methodist, or ethnic views against tr ansplant: no Have you ever been transplanted, evaluated, or listed at a [facility]: No PERSONAL HISTORY: Citizenship Where were you born: [place] Race/ethnicity: White Primary language: Moldovan Grew up where: [place] Parental information: Both parents Sibling information: 4 brothers, pt is the oldest Describes upbringing as: Lik ed it- grew up in the in the same home he currently is in. Pt lived near his grandparents and visited them often Ever ill, abused, neglected as a child: No Do you have any history of developmental delays/special education/PT/OT/SP: No Any reading/comprehension problems then or now: No How was school for you: Okay - Completed an agricultural program in last 2 years of high school. 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 Now on disability (l aldo-term) Relationship History AND Current Status: 42 years to [place] Children: 3 children, 2 daughters and one son; one daughter is in [place] FUNCTIONING ABILITIES AND HOME ENVIRONMENT: Home set up: Split level- 5 steps total. Had back surgery 5 years ago and equipped the home at that time with appr opriate items that provides assistance to pt in the home, handle bars in the tub, shower seat, etc. Resides with: Pets: 2 cats ADLs: Independent, sometimes will help pt IADLs: Independent is able but completes Do you drive? Yes but has been driving. [facility] symptoms of HE If you don't or can't due to illness, who will transport: Wi fe Can patient and/or patient care secretary identify the medications: Pt is aware but manages medication for pt at this time What system does the patient use to organize the medic ations: organizes weekly pill box Caregiving for others? No Impact of illness on daily life: Fatigue, had to quit his candida greta. Lost muscle tone. HOBBIES: What are your hobbies/interests: Dulce pre Covid 19, camping at their camper located on a permanent campsite FINANCIAL: Medical insurance: [employer] through Pt employment. On [place] [facility] disability that lasts till age 67 Prescription coverage: same Which pharmacy [facility] you use: [facility] [employer] benefits: Not needed Are you on disability: yes since when: March 2020 Household income: Financially stable. Medical leave: N/A Provided patient with financial worksheet for financial plan meg: Verbally reviewed CAREGIVER/SUPPORT PLAN: Who will be your primary caregiver: [place] Hutchison Contact #: [phone] Availability: is a wait ress and can take time off as needed and states she is planning to quit if pt has a liver transplant. 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 1. If several caregivers are involved, will they be able to cooperate with each other: Yes 2. How comfortable are you asking for and/or receiving help: Pt states it depends on what it is he needs help with. Lately more open to asking for help 3. Have you been or are you currently a caregiver for someon e else: no 4. Are there any ongoing family disagreements or life issues that may be impacted by the transplant: No 5. Does anyone in your household or care giving team use tobacco, abuse alcohol or illicit substances: no Has the caregiver commitment been reviewed: Verbally Has it been signed: no MENTAL HEALTH HISTORY: Indicate mental status: Status: Alert Lethargic Inconsistent Sedated/other: Orientation: Person Place Time Situation Patient had difficulty hearing SW through Zoom. repeate d questions to patient. Indicate cognitive function: Attentive: Yes Memory problems: yes- every once in a while Hepatic Encephal opathy: Yes *if yes, is it related to another medical condition: No Indicate appearance: Malnourished Obese Poor hygiene Body image concerns Appears stated age Well groomed Other: Indicate affect: Within normal limits Easily engaged in conv ersation Cooperative Flat Angry Anxious Blunted Dysphoric Euphoric Other: Do you have a history of clinical mental health issues: Reports no history of mental health issues but is on antidepressants (Zoloft ). Started when he was hospitalized for 2 months to help with anxiety and calm him. Depression: Anxiety Panic attacks Bipolar disorder Schizophrenia OCD Anorexia Bulimia ADHD PTSD BPD Other:Currently taking Zoloft- in hospital for 2 months and continued- found it helpful. Life changing events as an a dult: Yes, heart attack, lost an eye when he was 28 while working. Has anyone ever physically/emotionally/sexually abused you: No Have you ever attempted suicide or thought of harming yourself or others: No Have you ever been hospitalized in a psychiatric hospital: N o Do you currently or have you ever seen a therapi st/counselor/psychiatrist: No Have you used medications for mental health issu es, sleep, and/or pain now or in the past: Zoloft only Is a referral to transplant psychiatry indicated for further evaluation or screening: No COPING: What helps you cope when you're feeling stressed : Being around and talking to his Are you a spiritual or methodist person: sometimes, believes in God What are the stressors in your life: Used to have stre ss with work - not now Have you ever coped by using a substance (food, tobacco, drugs, alcohol): Used to smoke CHEMICAL DEPENDENCY: Tobacco Have you ever smoked/chewed tobacco: Began when he was 20 an d quit March 15, 2020. Pt reports smoking 2 packs for 35 yrs Cessation resources discussed AND explained: Drugs Have you ever used any illicit drugs: Marijuana: When he was a teenager, before children. Weekly u se Cocaine: No Heroin: No Any IV use: No If yes to any drugs, when was your last use: 42 years ago Was a tox screen done: Yes- utox screen completed 06/23/2020 and displayed elevated ethanol Ethanol, Urine <11 mg/dL 14High Patient denies any alcohol use Are you currently taking any prescribed narcotics: no Alcohol Do you drink any alcohol: No- past When was the last time you consumed any alcohol at all: Pt reports it has been 3 years since his last drink When did you start drinking/using: Age 20 History of use: weekend 3 - 4 beers What did you use or drink: Beer How much: 3-4 beers Period of heaviest drinking/use: None reported Within in the past 12 months: How many times per week (or month) did you drink/use: None within the last year How much did you use on average per occasion: N/A When you were first diagnosed with your liver disease, were you told to stop drinking/using substances: No- but knew that he should not b e drinking If yes, were you able to stop at that time: Alcohol/drug use consequences: No Rehab history: None DSM-V Severity Factors 1. The substance is often taken in large r amounts or over a longer period than was intended: no 2. There is a persistent desire or unsuccessful effort to cut down or control use of the substance: No 3. A great deal of time is spent in activities necessary to obtain the substance, use the substance, or recover from its effects: N o 4. Craving, or a strong desire or urge to use the substance: No 5. Recurrent use of the substance result ing in a failure to fulfill major role obligations at work, school, or home: No 6. Continued use of the subs tance despite having persistent or recurrent social or interpersonal problems caused or exacerbated by the effects of its use: No 7. Important social, occupational, or recreation al activities are given up or reduced because of use of the substance: No 8: Recurrent use of the substance in situations in which it is physically hazardous: No 9: Use of the substance is continued despite kno wledge of having a persistent or recurrent physical or psychological problem that is likel y to have been caused or exacerbated by the substance: No 10. Tolerance, as defined by either of the following: No A. A need for markedly increased amounts of the substance to achieve intoxication of desired effect B. A markedly diminished effect with continued use of the same amount of the substance 11. Withdrawal, as manifested by either of the following: No A. The characteristic withdrawal syndrome for th at substance (as specified in the DSM-V for each substance) B. The substance (or a closely related s ubstance) is taken to relieve or avoid withdrawal symptoms. 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 re: knowledge of transplant: Pt reports his has been researching transpl ant and shares information with him The patient best learns new information: Verbal- likes to have explain to him because she does research The caregiver best learns new information: Verbal Know a txp patient: No Volunteer to contact: Have read stories of other transplant pts. 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 Compliance concerns: No problems Ability to adhere to a therapeutic regimen: Motivation for a transplant: Agrees with the decision and wants to be around for his Is anyone interested as a li ving donor: Brother, Eliel Hutchison who is 58. Has filled out online forms PSYCHOSOCIAL RISKS: Reviewed psychosocial risks of transplant:adherence treatmen t protocols, ability to understand transplant center's system of ca re, active psychiatric diagnosis, financial resources or support, body image/scar: Yes reviewed Discussed MELD score, evaluation process, selection committe e, listing, waiting, the call, surgery, hospital recovery ti me, hospital stay, discharge, [place] [facility] recovery. Yes reviewed ADVANCE DIRECTIVES: Durable power of title attorney: Pt and are interested. SW provided education and will mail as requested Living will: None Information given: Will mail if pt is not able to obtain on line or at next [facility] appointment. Overall impression, plan, an d recommendation are listed at the beginning of the assessment for ease of communication and continuity of care purposes. EDGARD Alvarez, [facility] Liver Transplant Team Social Work Referring Provider: CONOR VANESSA [[id number]] Allergies As of Date: 06/26/2020 (Not on File) Date Reviewed: 06/24/2020 Reviewed by: Sirena (Rn) DIMITRIOS Ibrahim - Fully Assessed Prescriptions as of 06/26/2020 Sig: COMBIVENT RESPIMAT 20 MCG-100* Inhale 1 Puff as instructed f * ADVAIR DISKUS INHALATION Inhale as instructed. SERTRALINE 50 MG TABLET Take 50 mg by mouth once pablito* SPIRONOLACTONE 100 MG TABLET Take 200 mg by mouth once grisel* RIFAXIMIN 550 MG TABLET Take by mouth twice daily. FUROSEMIDE 40 MG TABLET Take 40 mg by mouth once pablito* CARVEDILOL 6.25 MG TABLET Take 6.25 mg by mouth twice d* CITRUCEL 500 MG TABLET Take by mouth. ESOMEPRAZOLE MAGNESIUM 20 MG * Take 20 mg by mouth DAILY (6 * CONSTULOSE ORAL Take by mouth. PROBIOTIC-10 ORAL Take by mouth. PERFLUTREN LIPID MICROSPHERES* Inject 1.3 mL intravenously a * Problem List As Of Date: 06/26/2020 (None) Encounter Status:Closed by PERRI WARE on 06/26/20 cnpn on 2020-06-26 CNPN Telephone (GASTA5) Normal 06-26-2020 [place] B[facility] Esc[facility] ([id number]) 1955 [place] [facility] Date Time Provider Department ([id number]) 06/26/20 WIN TITUS GASTA5 During your visit today, we recorded the following informati on about you: Win Titus MD 06/26/2020 2:55 PM Signed Vikki: please call him back and let him know ?His vitamin A+ D levels were low on the labs ?I would like him to start o n supplements; I sent a prescription to his pharmacy He will need to have a repeat vitaminA/ D level after he completes the course Thanks Vikki Latif 06/27/2020 1:52 PM Signed message given to patient Allergies As of Date: 06/26/2020 (Not on File) Date Reviewed: 06/24/2020 Reviewed by: Sirena (Rn) DIMITRIOS Ibrahim - Fully Assessed Reason for Visit: Orders [681] Order(s):ergocalciferol 50,000 unit capsule (VITAMIN D2, DRI SDOL)Take 1 capsule by mouth one time a week for 12 doses.Disp: 12 capsu leRfl: 0 vitamin A (AQUASOL A) 10,000 unit capsuleTake 1 capsule by m outh once daily.Disp: 30 capsuleRfl: 0 Prescriptions as of 06/26/2020 Sig: ERGOCALCIFEROL (VITAMIN D2) 1* Take 1 capsule by mouth one t * VITAMIN A 10,000 UNIT CAPSULE Take 1 capsule by mouth once * COMBIVENT RESPIMAT 20 MCG-100* Inhale 1 Puff as instructed f * ADVAIR DISKUS INHALATION Inhale as instructed. SERTRALINE 50 MG TABLET Take 50 mg by mouth once pablito* SPIRONOLACTONE 100 MG TABLET Take 200 mg by mouth once grisel* RIFAXIMIN 550 MG TABLET Take by mouth twice daily. FUROSEMIDE 40 MG TABLET Take 40 mg by mouth once pablito* CARVEDILOL 6.25 MG TABLET Take 6.25 mg by mouth twice d* CITRUCEL 500 MG TABLET Take by mouth. ESOMEPRAZOLE MAGNESIUM 20 MG * Take 20 mg by mouth DAILY (6 * CONSTULOSE ORAL Take by mouth. PROBIOTIC-10 ORAL Take by mouth. PERFLUTREN LIPID MICROSPHERES* Inject 1.3 mL intravenously a * Problem List As Of Date: 06/26/2020 (None) Prescriptions ordered this encounter Disp Refills Start End ERGOCALCIFEROL (VITAMIN D2) 1,250 MC* 12 c* 0 06/26/202009/2020 Route: ORAL Sig: Take 1 capsule by mouth one time a week for 12 doses. VITAMIN A 10,000 UNIT CAPSULE 30 c* 0 06/26/2020 07/26/2020 Route: ORAL Sig: Take 1 capsule by mouth once daily. Encounter Status:Closed by WIN TITUS MD on 06/26/20 obsolete on 2020-06 OBSOLETE Procedure (PULLMN) Normal 06-25-2020 [facility] HUTCHISONBECKY ([id number]) 1955 [facility] Date Time Provider Department ([id number]) 06/25/20 10:15 AM PULM [facility]CT LAB MAIN 6 ADDON PULLMN During your visit today, we recorded the following informati on about you: Referring Provider: CONOR VANESSA [[id number]] Allergies As of Date: 06/25/2020 (Not on File) Date Reviewed: 06/24/2020 Reviewed by: Sirena Mejía) DIMITRIOS Ibrahim - Fully Assessed Reason for Visit: Spirometry [191] Primary Visit Diagnosis:Dyspnea, unspecified type [R06.00] Other Visit Diagnoses:Liver transplant candidate [Z76.82] DIXON (nonalcoholic steatohepatitis) [K75.81] Order(s):SPIROMETRY BASELINE ONLY [[id number]] Order #: [id number]. #:[id number] Prescriptions as of 06/25/2020 Sig: COMBIVENT RESPIMAT 20 MCG-100* Inhale 1 Puff as instructed f * ADVAIR DISKUS INHALATION Inhale as instructed. SERTRALINE 50 MG TABLET Take 50 mg by mouth once pablito* SPIRONOLACTONE 100 MG TABLET Take 200 mg by mouth once grisel* RIFAXIMIN 550 MG TABLET Take by mouth twice daily. FUROSEMIDE 40 MG TABLET Take 40 mg by mouth once pablito* CARVEDILOL 6.25 MG TABLET Take 6.25 mg by mouth twice d* CITRUCEL 500 MG TABLET Take by mouth. ESOMEPRAZOLE MAGNESIUM 20 MG * Take 20 mg by mouth DAILY (6 * CONSTULOSE ORAL Take by mouth. PROBIOTIC-10 ORAL Take by mouth. PERFLUTREN LIPID MICROSPHERES* Inject 1.3 mL intravenously a * Problem List As Of Date: 06/25/2020 (None) Encounter Status:Closed by LUIS EDUARDO PENNY RRT on 06/25 history physical on 2020-06-25 HISTORY PHYSICAL HNO ID: [id number] Normal 06-12 [facility] Author: Ruth Ann Reyes [place] ([id number]) Service: ? Author Type: Anesthesiologist Type: HANDP Filed: 06/25/2020 1:32 PM Note Text: INITIAL CONSULT ANESTHESIA LIVER TRANSPLANT SERVICE DATE: 06/25/2020 SERVICE TIME: 953 Consulting Service: Transplant Surgery Opinion/Advice Regarding: Anesthetic evaluation and preparat ion prior to possible transplantation. My findings and recommendations wi ll be communicated through the shared medical records. ASSESSMENT AND PLAN: Becky Hutchison is a 64 year old male with end stage liver di sease as described in the HPI below. According to my assessment, Mr. Becky Hutchison is an accepta ble candidate for orthotopic liver transplant from an anesthetic point of view pending the following workup: Cardiology Consult RE: Coronary artery status and Pulmonology Consult RE: COPD. Patient had PCI in 2009 s/p NE . Since then, no stress test. Patient was 2 pck/day smoker for 35 ye ars and quit in 2009. Anesthesia for transplantation with risks, benefits, and alt ernatives was discussed with patient including the participation of anesth esiology residents, invasive monitoring, massive blood transfusion, a nd possibility of prolonged intubation. The patient and/or family appears t o understand and wishes to proceed. SUBJECTIVE: CHIEF COMPLAINT: Consultation for liver transplant evaluatio n. HPI: This is a 64 year old male who presents with end-stage liver disease from DIXON complicated by the following:Ascites (past treatme nts include tap for fluid), Encephalopathy (past treatments include medi mary treatment), Episodes of Esophageal Varices Bleeding (past tr eatments include EGD/banding), Portal Hypertension, anemia, and Throm bocytopenia . Patient has had cirrhosis for 2 year(s). No prior liver eval uations.. . The patient also has the following active medical conditions to be considered in their evaluation: DM, HTN, Sarcopenia Patient Currently has the Following Access: None There is no problem list on file for this patient. PAST MEDICAL HISTORY Diagnosis Date - Ascites - Atrial fibrillation (HCC) 01 episode in 2017 during acute illness - CAD (coronary artery disease) - Cirrhosis (HCC) - COPD (chronic obstructive pulmonary disease) (HCC) - Depression - Diabetes (HCC) No meds currently - Esophageal varices (HCC) s/p banding - Fatigue - Former heavy cigarette smoker (20-39 per day) 2 PPD, quit 2009 - H/O acute renal failure 2016 2 separate episodes requiring short term dialysis (4 treatme nts each time) - H/O Clostridium difficile infection - H/O heart artery stent 2009 - Hemorrhoid - Hepatic encephalopathy (HCC) - SARWAT (iron deficiency anemia) - NE, 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 - Thrombocytopenia (HCC) PAST SURGICAL HISTORY Procedure Laterality Date - BACK SURGERY HX - EYE SURGERY HX artificial eye - LAPAROSCOPIC CHOLECYSTECTOMY - OTHER SURGICAL HISTORY (PLEASE SPECIFY) HX facial surgery secondary to accident No family history on file. SOCIAL HISTORY: Social History Tobacco Use - Smoking status: Former Smoker Packs/day: 2.50 Years: 30.00 Pack years: 75.00 Types: Cigarettes Quit date: 03/15/2010 Years since quittin.2 - Smokeless tobacco: Never Used Substance Use Topics - Alcohol use: Not on file - Drug use: Not on file MEDICATIONS: @IPMED@ ALLERGIES: ALLERGIES Not on File OBJECTIVE REVIEW OF SYSTEMS: PAIN ASSESSMENT: Negative for pain, history of chronic pain, or current treatment for a chronic pain condition. GENERAL: Weight loss with tap and diuresis. Fatigued HEENT: No TMJ, dentition or trach. Artifical right eye NECK: Negative for lumps, goiter, pain and significant neck swelling. RESPIRATORY: Negative. CARDIOVASCULAR: Negative for chest pain, leg swelling or pal pitations. GI: Diarrhea. : No history of dysuria, frequency or incontinence. No dif ficulty urinating, nocturia > 1 time per night or hematuria. MUSCULOSKELETAL: Negative for joint pain or swelling, back p ain or muscle pain. SKIN: Negative for lesions, rash, and itching. PSYCH: Negative. HEMATOLOGY/LYMPHOLOGY: Negative for prolonged bleeding, brui sing easily or swollen nodes. ENDOCRINE: Negative for cold or heat intolerance, polyuria, polydipsia and goiter. NEURO: No history of headaches, syncope, paralysis, seizures or tremors. PHYSICAL EXAM: VITAL SIGNS: BP 103/54 Pulse 90 Temp 36.5 ?C (97.7 ?F) Resp 16 Ht 175.3 cm (5' 9) Wt 86.2 kg (190 lb) SpO2 97% BMI 2 8.06 kg/m? GENERAL: Alert. Cooperative. HEENT: PATIENT INTUBATED AND/OR HAS TRACHEOSTOMY: No MOUTH OPENING/TMJ: Full jaw ROM MICROGNATHIA/OVERBITE: No MALLAMPATI SCORE: MP 1 DENTITION: Edentulous/dentures THYROMENTAL DIST: WNL SHORT NECK: No NECK FLEX: Full ROM. NECK EXTENSION: Full ROM. NECK: No carotid bruits, no neck mass or tracheal deviation. SKIN: Skin color, texture, turgor normal, no suspicious rash es or lesions. CARDIAC: Regular rate and rhythm. LUNGS: Rhonchi mild bilateral. NEURO: Grossly normal, no focal deficits. ABDOMEN: Ascites. MUSCULOSKELETAL: Spine range of motion normal. Muscular stre ngth intact. ADVERSE ANESTHESIA EVENT: No history of adverse event. INTUBATION HISTORY: History of general anesthesia without di fficulty. Patient WILL accept blood products while under anesthesia du ring surgery. PLANNED ANESTHETIC: General SPECIAL ANESTHESIA CONSIDERATIONS: Not applicable for this p atient. POST-OP PAIN MANAGEMENT PLAN: PRN and/or IV narcotics per PC P. DATA: Diagnostic tests reviewed for today's visit: EKG Reading: NORMAL SINUS RHYTHM LOW VOLTAGE QRS, CONSIDER PULMONARY DISEASE, PERICARDIAL EFF USION, OR NORMAL VARIANT. QTC 518 Stress Test: Not done. Echocardiogram: 06/24/2020 The left ventricle is normal in size. Left ventricular systo lic function is mildly decreased. EF = 52 ? 5% (2D biplane) Normal left vent ricular diastolic function. Regional wall motion abnormalities as above. - The right ventricle is normal in size. Right ventricular s ystolic function is normal. - The left atrial cavity is mildly dilated. - 1+ TR - Trivial pericardial effusion - Ascites Cardiac Cath: Pending PFT Test: Pending CT Scan: 06/24/2020 Distal paraesophageal varices. Minimal upper lobe predominant centrilobular and paraseptal emphysema. Outside Hospital Records: N/A Laboratory and Testing: Lab Value Units Date High Low HB 7.9 g/dL 06/23/2020 17.0 13.0 HCT 25.9 % 06/23/2020 51.0 39.0 WBC 7.74 k/uL 06/23/2020 11.00 3.70 PLT 115 k/uL 06/23/2020 400 150 NA 131 mmol/L 06/23/2020 144 136 K 3.9 mmol/L 06/23/2020 5.1 3.7 GLUC 174 mg/dL 06/23/2020 99 74 BUN 18 mg/dL 06/23/2020 24 9 CREAT 0.90 mg/dL 06/23/2020 1.22 0.73 PTSEC 13.5 sec 06/23/2020 13.0 9.7 INR 1.3 no uni* 06/23/2020 1.3 0.9 APTT 25.6 sec 06/23/2020 32.4 23.0 ALT 36 U/L 06/23/2020 54 10 AST 60 U/L 06/23/2020 40 14 TBILI 7.1 mg/dL 06/23/2020 1.3 0.2 TSH 3.380 uU/mL 06/23/2020 4.200 0.270 GFR No results within date range. FIBRAG No results within date range. No results found for: ANTINT SIGNATURE: Ruth Ann Reyes MD PATIENT NAME: Becky devine DATE: June 25, 2020 TIME: 9:53 AM PAGER/CONTACT #: cnov on 2020-06-25 CNOV Office Visit (TXCTMN) Normal 06-25-[address] [place] [address] Clinic [facility] HUTCHISON ([id number]) 1955 [facility] [place] Date Time Provider Department ([id number]) 06/25/20 9:30 AM [facility] [place] [facility] During your visit today, we recorded the following informati on about you: Temperature Pulse Respiration Blood pressure 97.7 degrees 90/minute 16/minute 103/54 Weight Height 86.2 kg 1.753 m Ruth Ann Reyes MD 06/25/2020 1:32 PM Signed INITIAL CONSULT ANESTHESIA LIVER TRANSPLANT SERVICE DATE: 06/25/2020 SERVICE TIME: 953 Consulting Service: Transplant Surgery Opinion/Advice Regarding: Anesthetic evaluation and preparat ion prior to possible transplantation. My findings an d recommendations will be communicated through the shared medical records. ASSESSMENT AND PLAN: Becky Hutchison is a 64 year old male wit h end stage liver disease as described in the HPI below. According to my assessment, Mr. Becky Hutchison i s an acceptable candidate for orthotopic liver transplant from an anesthetic point of view pending the following workup: Cardiology Consult RE: Coronary artery status and Pulmonology Consult RE: COPD. Patient had PCI in 2009 s/p NE. Since then , no stress test. Patient was 2 pck/day smoker for 35 years and quit in 2009. Anesthesia for transplantation with risks, benefits, and alt ernatives was discussed with patient kike ding the participation of anesthesiology residents, invasive monitoring, massive blood transfusion, and po ssibility of prolonged intubation. The patient and/or family appears to understand and wishes to proceed. SUBJECTIVE: CHIEF COMPLAINT: Consultation for liver transplant evaluatio n. HPI: This is a 64 year old male who pres ents with end-stage liver disease from DIXON complicated by the following:Ascites (past treatments i nclude tap for fluid), Encephalopathy (past treatments include medical treatment), Episodes of Esophageal Varices Bleeding (past treatments include EGD/ban ding), Portal Hypertension, anemia, and Thrombocytopenia . Patient has had cirrhosis for 2 year(s). No prior liver ev aluations.. . The patient also has the following active medical conditio ns to be considered in their evaluation: DM, HTN, Sarcopenia Patient Currently has the Following Access: None There is no problem list on file for this patient. PAST MEDICAL HISTORY Diagnosis Date - Ascites - Atrial fibrillation (HCC) 01 episode in 2017 during acute illness - CAD (coronary artery disease) - Cirrhosis (HCC) - COPD (chronic obstructive pulmonary disease) (HCC) - Depression - Diabetes (HCC) No meds currently - Esophageal varices (HCC) s/p banding - Fatigue - Former heavy cigarette smoker (20-39 per day) 2 PPD, quit 2009 - H/O acute renal failure 2016 2 separate episodes requiring short term dialysis (4 treatme nts each time) - H/O Clostridium difficile infection - H/O heart artery stent 2009 - Hemorrhoid - Hepatic encephalopathy (HCC) - SARWAT (iron deficiency anemia) - NE, 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 - Thrombocytopenia (HCC) PAST SURGICAL HISTORY Procedure Laterality Date - BACK SURGERY HX - EYE SURGERY HX artificial eye - LAPAROSCOPIC CHOLECYSTECTOMY - OTHER SURGICAL HISTORY (PLEASE SPECIFY) HX facial surgery secondary to accident No family history on file. SOCIAL HISTORY: Social History Tobacco Use - Smoking status: Former Smoker Packs/day: 2.50 Years: 30.00 Pack years: 75.00 Types: Cigarettes Quit date: 03/15/2010 Years since quittin.2 - Smokeless tobacco: Never Used Substance Use Topics - Alcohol use: Not on file - Drug use: Not on file MEDICATIONS: @IPMED@ ALLERGIES: ALLERGIES Not on File OBJECTIVE REVIEW OF SYSTEMS: PAIN ASSESSMENT: Negative for pain, history of chronic pain, or current treatment for a chronic pain condition. GENERAL: Weight loss with tap and diuresis. Fatigued HEENT: No TMJ, dentition or trach. Artifical right eye NECK: Negative for lumps, goiter, pain and significant neck swelling. RESPIRATORY: Negative. CARDIOVASCULAR: Negative for chest pain, leg swelling or pal pitations. GI: Diarrhea. : No history of dysuria, frequency or incontinence. No difficulty urinating, nocturia > 1 time per night or hematuria. MUSCULOSKELETAL: Negative fo r joint pain or swelling, back pain or muscle pain. SKIN: Negative for lesions, rash, and itching. PSYCH: Negative. HEMATOLOGY/LYMPHOLOGY: Negative for prolonged bleeding, brui sing easily or swollen nodes. ENDOCRINE: Negative for cold or heat intolerance, polyuria, polydipsia and goiter. NEURO: No history of headaches, syncope, paralysis, seizures or tremors. PHYSICAL EXAM: VITAL SIGNS: BP 103/54 Pulse 90 Temp 36.5 ?C (97.7 ?F) Resp 16 Ht 175.3 cm (5' 9) Wt 86.2 kg (190 lb) SpO2 97% BMI 28.0 6 kg/m? GENERAL: Alert. Cooperative. HEENT: PATIENT INTUBATED AND/OR HAS TRACHEOSTOMY: No MOUTH OPENING/TMJ: Full jaw ROM MICROGNATHIA/OVERBITE: No MALLAMPATI SCORE: MP 1 DENTITION: Edentulous/dentures THYROMENTAL DIST: WNL SHORT NECK: No NECK FLEX: Full ROM. NECK EXTENSION: Full ROM. NECK: No carotid bruits, no neck mass or tracheal deviation. SKIN: Skin color, texture, turgor normal, no suspicious rash es or lesions. CARDIAC: Regular rate and rhythm. LUNGS: Rhonchi mild bilateral. NEURO: Grossly normal, no focal deficits. ABDOMEN: Ascites. MUSCULOSKELETAL: Spine range of motion normal. Muscular stre ngth intact. ADVERSE ANESTHESIA EVENT: No history of adverse event. INTUBATION HISTORY: History of general anesthesia without di fficulty. Patient WILL accept blood products while under anesthesia du ring surgery. PLANNED ANESTHETIC: General SPECIAL ANESTHESIA CONSIDERATIONS: Not applicable for this p atient. POST-OP PAIN MANAGEMENT PLAN: PRN and/or IV narcotics per PC P. DATA: Diagnostic tests reviewed for today's visit: EKG Reading: NORMAL SINUS RHYTHM LOW VOLTAGE QRS, CONSIDER PULMONARY DISEASE, PERICARDI AL EFFUSION, OR NORMAL VARIANT. QTC 518 Stress Test: Not done. Echocardiogram: 06/24/2020 The left ventricle is normal in size. Left ventricular sys tolic function is mildly decreased. EF = 52 ? 5% (2D biplane) Norm al left ventricular diastolic function. Regional wall motion abnormalities as above. - The right ventricle is nor mal in size. Right ventricular systolic function is normal. - The left atrial cavity is mildly dilated. - 1+ TR - Trivial pericardial effusion - Ascites Cardiac Cath: Pending PFT Test: Pending CT Scan: 06/24/2020 Distal paraesophageal varices. Minimal upper lobe predominant centrilobular and paraseptal emphysema. Outside Hospital Records: N/A Laboratory and Testing: Lab Value Units Date High Low HB 7.9 g/dL 06/23/2020 17.0 13.0 HCT 25.9 % 06/23/2020 51.0 39.0 WBC 7.74 k/uL 06/23/2020 11.00 3.70 PLT 115 k/uL 06/23/2020 400 150 NA 131 mmol/L 06/23/2020 144 136 K 3.9 mmol/L 06/23/2020 5.1 3.7 GLUC 174 mg/dL 06/23/2020 99 74 BUN 18 mg/dL 06/23/2020 24 9 CREAT 0.90 mg/dL 06/23/2020 1.22 0.73 PTSEC 13.5 sec 06/23/2020 13.0 9.7 INR 1.3 no uni* 06/23/2020 1.3 0.9 APTT 25.6 sec 06/23/2020 32.4 23.0 ALT 36 U/L 06/23/2020 54 10 AST 60 U/L 06/23/2020 40 14 TBILI 7.1 mg/dL 06/23/2020 1.3 0.2 TSH 3.380 uU/mL 06/23/2020 4.200 0.270 GFR No results within date range. FIBRAG No results within date range. No results found for: ANTINT SIGNATURE: Ruth Ann Reyes MD PATIENT NAME: Becky devine DATE: June 25, 2020 TIME: 9:53 AM PAGER/CONTACT #: Referring Provider: CONOR VANESSA [[id number]] Allergies As of Date: 06/25/2020 (Not on File) Date Reviewed: 06/24/2020 Reviewed by: Sirena HesterRn) DIMITRIOS Ibrahim - Fully Assessed Visit Diagnoses:Liver transplant candidate [Z76.82] DIXON (nonalcoholic steatohepatitis) [K75.81] Prescriptions as of 06/25/2020 Sig: COMBIVENT RESPIMAT 20 MCG-100* Inhale 1 Puff as instructed f * ADVAIR DISKUS INHALATION Inhale as instructed. SERTRALINE 50 MG TABLET Take 50 mg by mouth once pablito* SPIRONOLACTONE 100 MG TABLET Take 200 mg by mouth once grisel* RIFAXIMIN 550 MG TABLET Take by mouth twice daily. FUROSEMIDE 40 MG TABLET Take 40 mg by mouth once pablito* CARVEDILOL 6.25 MG TABLET Take 6.25 mg by mouth twice d* CITRUCEL 500 MG TABLET Take by mouth. ESOMEPRAZOLE MAGNESIUM 20 MG * Take 20 mg by mouth DAILY (6 * CONSTULOSE ORAL Take by mouth. PROBIOTIC-10 ORAL Take by mouth. PERFLUTREN LIPID MICROSPHERES* Inject 1.3 mL intravenously a * Problem List As Of Date: 06/25/2020 (None) Encounter Status:Closed by RUTH ANN REYES MD on 06/25/20 No panel information on 2020-06-25 Pattern Maker Programer [facility] 06-25-2020 [facility] [address] ([id number]) [address] [place] [address] Test Date: 06-25 Pat Name: BECKY HUTCHISON Department: Room: Gender: Male Oyster Shipper: Estefanía Maloney : 1955 Requested By: Order Number: [id number] Reading MD: Interpretive Statements Had difficulty with understa nding instructions, several attempts done, best test reported.The exhaled (FVC) spirometry daniel mullins meets ATS/ERS acceptability and repeatability standards.The inspired (FIVC) spirometry maneu nick is [less than/greater than] the FVC maneuver.Time to Peak Flow greate r than ATS/ERS standard, FEV1 may not be valid .// KL IMPRESSION: Sarah LLN Pred ULN % FVC L 4.13 3.17 4.18 5.21 98.7 FEV1 L 3.12 2.41 3.23 4.01 96.6 FEV1/FVC % 76 65 77 88 97.7 PEF L/s 6.72 6.40 8.56 10.73 78.5 FEF50% L/s 3.15 1.28 3.95 6.63 79.6 FIF50% L/s 3.93 FE%FIF % 80 FIVC L 3.74 QNV66-62% L/s 2.69 1.27 2.67 4.59 100.7 UUG846% sec 10.91 FETPEF sec 0.24 VBe%FV % 4 VBEex L 0.19 FIVC/FVC % 91 ----- ----- ----- ----- ----- ----- ----- ----- ----- ----- ----- ----- ----- ----- ----- ----- ----- ----- ----- ----- Pre Spirometry Post Spirometry Supine Pre Spirometry Post Spirometry Supine Lung Volumes Lung Diffusion PREDICTED VALUES: The reference values for spirometry are those of Gogo stover al (Gogo GLI 2012): Respiratory Journal 2012; 40: 3242-5711, 2012. Tech Comment: progress on 2020-06 PROGRESS HNO ID: [id number] Normal 06-24-2020 [facility] Author: Xi (Dimitrios) DIMITRIOS Barksdale [place] ([id number]) Service: ? Author Type: Registered Nurse Type: Progress Notes Filed: 06/24/2020 4:36 PM Note Text: Patient provided dental clearance form completed by local de ntist. Pt seen 06/12/20 and is free from active disease and infection, no work needs to be completed at this time. Dental office phone [phone] . Form in file. Xi Barksdale RN PROGRESS HNO ID: [id number] Normal 06-24-2020 [facility] Author: Xi (Dimitrios) DIMITRIOS Barksdale [place] ([id number]) Service: ? Author Type: Registered Nurse Type: Progress Notes Filed: 06/24/2020 4:35 PM Note Text: Met with patient/family to discuss the following information : [x] Patient was provided the Surgical Site Infection FAQ she et [x] SRTR information provided and questions answered. Inform ed patient to call public information coordinator with any questions [x] Patient was provided the UNOS brochure on multiple listi ng and waiting time transfer [x]Evaluation process including presentation to selection co mmittee, OSOTC approval and listing criteria reviewed [x]Surgical procedure, including post-operative management, hospitalization, lifelong immunosuppressive medications and their side effects (including the risk for hypertension, diabetes, kidn ey problems and cancers) and [place] [facility] follow up after transplant. Possi bility of recurrent disease discussed with patient. [x]Patient is aware of the potential medical, surgical or ps ychosocial risks [x] Patient is aware that they will need a patient care secretary to b e available for the first 8-12 weeks after discharge from the hospital. [x] Patient informed that in order to maintain their UNOS li sting status periodic test will be required. If they fail to keep appoint ments or to undergo required lab testing, listing status may be affected . [x]Discussed organ donor risk factors, including potential r isk of developing transmissible disease including but not limited t o HIV, hepatitis B and C, malaria, and malignancy during liver shipley splant. [x]Patient advised that they may be asked to consider donors with positive lab results such as Hepatitis B or Hepatitis C, depending on their circumstances [x]Patient was advised of his/her right to decline offers fo r transplant without any penalty [x]Patient was advised that he/she can refuse transplantatio n at any time prior to transplant without any penalty. [x]Patient was advised that if they choose not to proceed wi th transplant, alternative treatment will be provided. Alternative treatmen t may include medications to control fluid buildup or medications to preve nt confusion. [x] Patient told their protected health information would be released to OSOTC and UNOS in order to be placed on the UNOS waiting lis t for a donor organ. [x] Patient told that my medical information and procedures, without revealing my identity may be used for teaching and research activities. [x] Patient told they are responsible for arranging for paym ent for costs that are not covered by insurance. Patient advised that insu gurdeep approval is needed prior to listing. [x] Patient told that the [facility] is a t eaching facility and part of care, under the guidance of margaret jacome, may be conducted by Residents, [place] and students. [x]Patient advised that transplants not performed in a medic are-approved hospital may negatively affect payment for medication covera ge by Medicare Part B. [x]We make every attempt to provide transplant services 24 h ours per day. We would notify you of any closure and assist in making alte rnative transplant arrangements. [x] Patient told they are responsible for arranging for paym ent for costs that are not covered by insurance. Patient advised that insu gurdeep approval is needed prior to listing. [x] Patient told that the [facility] is a t eaching facility and part of care, under the guidance of margaret jacome, may be conducted by Residents, [place] and students. [x]Patient advised that transplants not performed in a medic are-approved hospital may negatively affect payment for medication covera ge by Medicare Part B. [x]We make every attempt to provide transplant services 24 h ours per day. We would notify you of any closure and assist in making alte rnative transplant arrangements. AMBULATORY PATIENT EDUCATION NOTE PRE-OP TEACHING PROCEDURE: Liver transplant READINESS TO LEARN COGNITIVE ABILITY: Alert and oriented MOTIVATION TO LEARN: Disinterested / avoidant FAMILY SUPPORT: High - Very involved in pt care INSTRUCTION PROVIDED TO: Patient and Spouse PATIENT LEARNS BEST BY: Multiple Methods FACTORS AFFECTING LEARNING: None PHYSICAL LIMITATIONS AFFECTING LEARNING: Fatigue LEARNING RESPONSE DIAGNOSIS: DIXON METHOD OF INSTRUCTION: Written instruction - handouts Verbal instruction PATIENT / FAMILY RESPONSE: Information received as demonstra eliel by interest and questions FOLLOW-UP PLAN: Patient instructed to call with any further issues Contact information given. SUPPLEMENTAL MATERIAL: None REFERRAL (RECOMMENDATION): None Electronically Signed By: Xi Barksdale RN In Department: TR ANSPLANT [facility] PROGRESS HNO ID: [id number] Normal 06-24-2020 [facility] Author: Olivier Woods (Senior Administrative Associate) [place] ([id number]) Service: ? Author Type: Pharmacist Type: Progress Notes Filed: 06/24/2020 3:15 PM Note Text: Pre-Transplant Pharmacotherapy Evaluation Patient Name: Becky Hutchison Date of Service: June 24, 2020 Mr. Hutchison is a 64 year old male who presents to the clinic to day for pre-liver transplantation pharmacotherapy evaluation. Braxton becker presents to clinic with DIXON. MELD-Na score 22. PMH includes obesity, hy pertension, CAD (PCI 2010 s/p NE), depression, anxiety, BPH, COPD. Allergies: ALLERGIES Not on File Preferred Pharmacy e- [facility] [place] [address] - [address] [facility] - [phone] [id number] [address] [facility] [address] Evaluation of current pharmacotherapy: Current Outpatient Rx Medication Sig Dispense Refill - sertraline (ZOLOFT) 50 mg tablet Take 50 mg by mouth once daily. - spironolactone (ALDACTONE) 100 mg tablet Take 200 mg by mo uth once daily. - rifAXIMin (XIFAXAN) 550 mg tablet Take by mouth twice pablito y. - furosemide (LASIX) 40 mg tablet Take 40 mg by mouth once d aily. - carvedilol (COREG) 6.25 mg tablet Take 6.25 mg by mouth tw ice daily with meals. - Methylcellulose, Laxative, (CITRUCEL) 500 mg tab Take by m outh. - esomeprazole (NEXIUM) 20 mg capsule Take 20 mg by mouth DA NEO (6 AM). - lactulose (CONSTULOSE ORAL) Take by mouth. - Lactobac no.41/Bifidobact no.7 (PROBIOTIC-10 ORAL) Take by mouth. - perflutren lipid microspheres (DEFINITY) 1.1 mg/mL injecti on (to be provided with echo procedure) Inject 1.3 mL intravenously as needed for up to 1 dose. Instructions Administration Instructions: If no I V access, insert saline lock prior to administering contrast. Disconti nue saline lock post exam. If patient has central line or IVAD, may acc ess for administration according to line specific nursing protocol. Once exam is complete, flush line and de-access per line specific nursing protocol. Diluted IV Bolus: Dilute 1.3 ml of Definity with 8.7 ml of preservative-free saline 1.3 mL 0 - COMBIVENT RESPIMAT 20-100 mcg/actuation inhaler Inhale 1 P uff as instructed four times daily. - fluticasone propion/salmeterol (ADVAIR DISKUS INHALATION) Inhale as instructed. Medication reconciliation: Completed OTC/Herbal medications: None Anticoagulation: Not currently prescribed OARRS review: Data consistent with prescription history Social History: Tobacco: History of use: quit 03/15/2010 ETOH: Denies Illicit drugs: Denies Adherence Assessment: ? Medications managed by: Family member ? Patient brought: Medication list ? Patient knows name, indications, dose, frequency of his/he r medications? 100% ? Do you sometimes forget to take your medicine?: No ? Over the past two weeks, were there any days when you did not take your medicine?: No ? Have you ever cut back or stopped taking your medication w ithout telling your doctor, because you felt worse when you took it?: Yes ( Combivent and Advair) ? When you travel or leave home, do you sometimes forget to bring along your medications?: No ? Do you have a good support system at home where someone ca n help you manage your medications post-transplantation until you are a ble to do so on your own?: Yes Vaccination History Review: There is no immunization history on file for this patient. May consider the following vaccinations prior to transplanta tion: ? HBV, Prevnar and Shingrix Comorbidity Monitoring ? Blood Pressure: 100/48mmHg (normally ~120/80 at home) ? Carvedilol 6.25mg BID ? Cholesterol: LDL Cholesterol: 42 (06/23/2020) ? Diabetes: HBA1C: 5.3% (2017 - no current h/o diabetes) ? Thyroid: TSH: 3.380 (06/23/2020) ? Bone health: Vitamin D 25 Hydroxy: 15.0 (06/23/2020) ? Mental health: depression, anxiety ? Sertraline 50 mg every day Education provided: Patient was given an overview of immunos uppressant therapy and was provided an example MedActionPlan. Patient w as educated on expected adverse effects and the importance of adherence to transplant medication regimens. All questions were answered to patient? s satisfaction. Patient was informed to contact the clinic if any questions or concerns arise. VISIT SUMMARY ? Potential drug-drug interaction with immunosuppressant reg imen: No ? Anticipate post-transplant medication regimen non-adherenc e? No ? Factors affecting learning: None Time spent completing evaluation: 30 minutes There are no medication issues identified that would preclud e transplant in this patient. Ryland Woods, KatharineD PGY2 Solid Organ Transplant Senior Administrative Associate [phone] PROGRESS HNO ID: [id number] Normal 06-24-2020 [facility] Author: BENITEZ Nicole (Ct) [place] ([id number]) Service: Radiology Author Type: Clinical Oyster Shipper Type: Progress Notes Filed: 06/24/2020 8:32 AM Note Text: Radiology Service Progress Note PATIENT NAME: Becky Hutchison DATE OF SERVICE: June 24, 2020 TIME: 8:16 AM PATIENT IDENTITY VERIFICATION COMPLETED USING TWO (2) IDENTI FIERS: Name and Date of confirmed by patient verbally and Name and Date of confirmed by identification band. FALL SCREENING: Has the patient had 2 falls in the last year or 1 fall with injury or currently using an Ambulatory Assistive Devic e (Walker, Cane, Wheelchair, Crutches, etc.)? Yes, Patient High Risk fo r Falls What interventions were put in place to prevent falls during this visit? Increased Observations by Caregivers PATIENT GENDER DATA: Male PATIENT RELEVANT IMPLANT DATA REVIEWED: Yes RADIOLOGY DEPARTMENT: CT; Exam(s) Completed: Chest and Liver PERIPHERAL IV DATA: Site assessment: Clean,Dry and Intact, S ite disposition Discontinued SIGNED BY: BENITEZ Nicoel June 24, 2020 8:16 AM PROGRESS HNO ID: [id number] Normal 06-24-2020 [facility] Author: Sirena HesterRn) DIMITRIOS Ibrahim [place] ([id number]) Service: Nuclear Medicine Author Type: Registered Nurse Type: Progress Notes Filed: 06/24/2020 8:13 AM Note Text: Radiology Service Progress Note DATE OF SERVICE: June 24, 2020 TIME: 8:09 AM PATIENT WEIGHT: 190LBS PATIENT IDENTITY VERIFICATION COMPLETED USING TWO (2) STANDA RD IDENTIFIERS: Name and Date of confirmed by patient nick bally and Name and Date of confirmed by identification band. FALL SCREENING: Has the patient had 2 falls in the last year or 1 fall with injury or currently using an Ambulatory Assistive Devic e (Walker, Cane, Wheelchair, Crutches, etc.)? Yes, Patient High Risk fo r Falls What interventions were put in place to prevent falls during this visit? [place] Risk Wristband Applied and Offered Assistance with Transfers/Clothing PATIENT GENDER DATA: Male ALLERGIES: Reviewed and unchanged CONTRAST ALLERGY: No EXAM: CT -CONTRAST INDUCED NEPHROPATHY RISK FACTORS: Patient age > 60 years, Diabetic: No and History of Kidney surgery, Kidney neoplasm, Liver disease, and/or any recent Nephrotoxic Chemotherapy or other Nephrotoxic medications CREATININE: Creatinine Date Value Ref Range Status 06/23/2020 0.90 0.73 - 1.22 mg/dL Final eGFR-All Other Races Date Value Ref Range Status 06/23/2020 >60 . Final Comment: eGFR (Estimated GFR) Units of measure: mL/min/1.73 meters sq uared eGFR is derived from the reexpressed MDRD Study equation usi ng the following parameters: serum creatinine, age, gender and race. The crea tinine assay has been calibrated to be traceable to IDMS. An eGFR <60 mL/min/1.73m2 for >3 months is consistent with c hronic kidney disease. Refer to KDOQI guidelines for clinical interpretati on. In patients with unstable renal function, e.g. those with ac [place] kidney injury, the eGFR may not accurately reflect actual GFR. eGFR- Date Value Ref Range Status 06/23/2020 >60 Final P.O.C.T. RESULTS: N/A June 24, 2020 TREATMENT: No Hydration needed. IV SITE: Ambulatory: A peripheral IV was started in the [facility] antecubital site with a Angio cath: 20 gauge. and A Saline l ock was inserted per protocol IV SITE APPEARANCE: Clean,Dry and Intact SIGNATURE: Sirena Ibrahim RN PATIENT NAME: Becky Pierre arr DATE: June 24, 2020 TIME: 8:[address] liver w ivcon on 2020-06-24 CT LIVER W * * *Final Report* * * Normal 2019 [facility] IVCON DATE OF EXAM: Jun 24 2020 8:32AM [place] ([id number]) [facility] [id number] LIVER [place] IVCON / PROCEDURE REASON: multiple diagnoses * * * * Physician Interpretation * * * * EXAMINATION: CT ABDOMEN WITH IV CONTRAST (LIVER) CLINICAL HISTORY: DIXON cirrhosis, liver transplant candidate TECHNIQUE: Hepatic arterial, portal venous and early equilib rium phase CT imaging of the abdomen was performed utilizing IV contrast o nly (Liver protocol). M: [id number] Contrast: IV: 150 ml of Omnipaque 300 Oral: none CT Radiation dose: Integrated Dose-length product (DLP) for this visit = 1208 mGy*cm. CT Dose Reduction Employed: Automated exposure control (AEC) COMPARISON: 02/15/[address], 01/27/[address] RESULT: Hepatic morphology and masses: Cirrhotic liver morphology. OPTN class 5 lesions: None. Other Lesions: None Hepatic vasculature and collaterals: Portal venous system (splenic vein, main portal vein, left a nd right anterior and right posterior portal vein branches): Patent. Portal vein diameter: 1.7 cm. Celiac trunk and SMA: Patent. No stenosis. Hepatic artery: Patent. Conventional anatomy. Hepatic veins: Patent. Collaterals: Spontaneous splenorenal shunt: Absent Recanalized paraumbilical vein: Small Esophageal varices: Small Mesenteric portosystemic collaterals: Present Related extrahepatic findings: Spleen: 16.5 cm (craniocaudally), enlarged. No mass. Mesentery/Peritoneum: Moderate volume ascites. No mass. Ther e is mild retroperitoneal fascial thickening, which is likely related to portal hypertension and/or prior inflammation. Other findings: Biliary: No bile duct dilation. Gallbladder surgically absen t. Pancreas: No mass or duct dilation. Adrenals: No mass. Kidneys: No focal solid renal mass. No hydronephrosis. GI tract: No dilation or wall thickening along visualized se gments. Lymph nodes: Mildly enlarged harrison hepatis/peripancreatic ly mph nodes, overall similar to prior, likely chronic/reactive. For examp le 1.4 x 3.0 cm harrison hepatis lymph node on 6:42, previously 1.6 x 2.8 cm . No new abdominal lymphadenopathy. Vasculature: No abdominal aortic aneurysm. Mild haziness rosana ng takeoff of KESHAWN (6:79), appears similar to prior studies, probably fr om hypertension or prior inflammation. KESHAWN remains patent along visualized segments Bones/Soft Tissues: Posttraumatic deformity along several le ft-sided ribs. Degenerative changes. Postoperative changes in lower l umbar spine with partially visualized in situ fusion hardware. Lower thorax: A chest CT performed will be reported separate ly. IMPRESSION: MORPHOLOGIC FEATURES OF CIRRHOSIS AND PORTAL HYPERTENSION. NO OPTN 5 LESION. 5A lesions: 0 5A-g lesions: 0 5B lesions: 0 5B-g lesions: 0 5T lesions: 0 5X lesions: 0 Sub Plant Manager: MARCELO Transcribe Date/Time: Jun 24 2020 8:44A Dictated by : CHARLES BARAJAS MD This examination was interpreted and the report reviewed and electronically signed by: CHARLES BARAJAS MD on Jun 24 2020 8:54AM EST [id number] ct chest w ivcon on 2020-06-24 CT CHEST W * * *Final Report* * * Normal 2019 [facility] IVCON DATE OF EXAM: Jun 24 2020 8:32AM [place] ([id number]) [facility] [place] CHEST W IVCON / PROCEDURE REASON: multiple diagnoses * * * * Physician Interpretation * * * * EXAMINATION: CHEST CT WITH CONTRAST CLINICAL HISTORY: 64-year-old male with reported history of smoking and cirrhosis undergoing evaluation for liver transplant. Technique: Spiral CT acquisition of the chest from the thora cic inlet to the upper abdomen following IV contrast. MQ: CTCW_6 Contrast: 150 mL Omnipaque [address] Dose-Length Product: 1208 mGy*cm CT Dose Reduction Employed: Automated exposure control (AEC) Comparison: Abdominal CT dated 02/15/2020; chest radiograph dated 02/06/2020; no chest CT available for comparison RESULT: Limitations: Mild respiratory motion. Lines, tubes, and devices: None. Lung parenchyma and airways: Images of the lungs are mildly degraded by respiratory motion artifact. There is minimal centrilobular and paraseptal emphysema in the upper lobes, right greater than left. Mild bronchial wall thickening is present bilaterally. No suspici ous pulmonary nodule. No consolidation or pulmonary edema. Centr al airways are patent, no endobronchial lesion. Pleural space: No pleural effusion, pleural thickening, or p neumothorax. Lower neck, lymph nodes, and mediastinum: Imaged thyroid gla nd is unremarkable. There is a borderline enlarged left supraclavi cular lymph node seen on image 14 measuring 1 cm in short axis. No axill janay lymphadenopathy. No mediastinal or hilar lymphadenopathy. Ca lcified hilar lymph nodes are present bilaterally, suggesting sequel a of prior granulomatous disease. There are distal paraesophageal varic es. Heart, pericardium, and thoracic vessels: There is probable common origin of the right brachiocephalic and left common carotid arteries. The ascending thoracic aorta is nondilated and measures up t o 3.6 cm in diameter in the mid ascending segment. The main pulmonary ar albaro is dilated measuring 3.5 cm in diameter, which can be seen with pulmonary hypertension. Moderate severity scattered coronary artery af ter static calcifications are present. The left atrium is borderline en larged. No pericardial effusion. Bones and soft tissues: No destructive lytic or blastic bone lesion. Sequential fractures of the left lateral seventh, eighth, ni nth ribs are likely either subacute or chronic given adjacent callus. Min imal endplate degenerative changes are present within the thoraci c spine. Upper abdomen: The concurrently performed abdominal CT is di ctated separately. Prepper (topogram) images: No additional findings. IMPRESSION: 1. Nonspecific borderline enlarged left supraclavicular lymp h node which should be assessed on follow-up. 2. No suspicious pulmonary nodule. 3. Distal paraesophageal varices. 4. Minimal upper lobe predominant centrilobular and parasept al emphysema. Sub [facility] Transcribe Date/Time: Jun 24 2020 8:46A Dictated by : MAHENDRA IVAN MD This examination was interpreted and the report reviewed and electronically signed by: MAHENDRA IVAN MD on Jun 24 2020 8:59AM EST [id number] cnpn on 2020-06-24 CNPN Telephone ([place]CTMN) Normal 06-24-2020 [facility] BECKY Escalante ([id number]) 1955 [address] [facility] Date Time Provider Department ([id number]) 06/24/20 XI [facility]) TXCTMN During your visit today, we recorded the following informati on about you: Allergies As of Date: 06/24/2020 (Not on File) Date Reviewed: 06/24/2020 Reviewed by: Sirena HesterRn) DIMITRIOS Ibrahim - Fully Assessed Reason for Visit: Follow Up [171] Primary Visit Diagnosis:Liver transplant candidate [Z76.82] Order(s):PHOSPHATIDYLETHANOL (PETH) [SQPETH] Order #: [id number] FUTURE Prescriptions as of 06/24/2020 Sig: COMBIVENT RESPIMAT 20 MCG-100* Inhale 1 Puff as instructed f * ADVAIR DISKUS INHALATION Inhale as instructed. SERTRALINE 50 MG TABLET Take 50 mg by mouth once pablito* SPIRONOLACTONE 100 MG TABLET Take 200 mg by mouth once grisel* RIFAXIMIN 550 MG TABLET Take by mouth twice daily. FUROSEMIDE 40 MG TABLET Take 40 mg by mouth once pablito* CARVEDILOL 6.25 MG TABLET Take 6.25 mg by mouth twice d* CITRUCEL 500 MG TABLET Take by mouth. ESOMEPRAZOLE MAGNESIUM 20 MG * Take 20 mg by mouth DAILY (6 * CONSTULOSE ORAL Take by mouth. PROBIOTIC-10 ORAL Take by mouth. PERFLUTREN LIPID MICROSPHERES* Inject 1.3 mL intravenously a * Problem List As Of Date: 06/24/2020 (None) Encounter Status:Closed by WIN TITUS MD on 06/24/20 cnov on 2020-06-24 CNOV Office Visit ([place]CT[place]) Normal 06-24-[address] [place] [address] [facility] BECKY HUTCHISON ([id number]) 1955 [facility] Date Time Provider Department ([id number]) 06/24/20 1:30 PM TRANSPLANT PHARMACIST TXCTMN During your visit today, we recorded the following informati on about you: Olivier Woods, Senior Administrative Associate 06/24/2020 3:15 PM Signed Pre-Transplant Pharmacotherapy Evaluation Patient Name: Becky Hutchison Date of Service: June 24, 2020 Mr. Hutchison is a 64 year old male who presents to t he clinic today for pre-liver transplantation pharmacotherapy evaluation. Patient presen ts to clinic with DIXON. MELD-Na score 22. PMH includes obesity, hy pertension, CAD (PCI 2010 s/p NE), depression, anxiety, BPH, COPD. Allergies: ALLERGIES Not on File Preferred Pharmacy e- [facility] [facility] [place] [phone] - [address] [facility] - [phone] [id number] [address] [facility] [id number] Evaluation of current pharmacotherapy: Current Outpatient Rx Medication Sig Dispense Refill - sertraline (ZOLOFT) 50 mg tablet Take 50 mg by mouth once daily. - spironolactone (ALDACTONE) 100 mg tablet Take 200 mg by mouth once daily. - rifAXIMin (XIFAXAN) 550 mg tablet Take by mouth twice pablito y. - furosemide (LASIX) 40 mg tablet Take 40 mg by mouth once d aily. - carvedilol (COREG) 6.25 mg tablet Take 6.25 mg by mouth tw ice daily with meals. - Methylcellulose, Laxative, (CITRUCEL) 500 mg tab Take by m outh. - esomeprazole (NEXIUM) 20 mg capsule Take 20 mg by mouth DA NEO (6 AM). - lactulose (CONSTULOSE ORAL) Take by mouth. - Lactobac no.41/Bifidobact no.7 (PROBIOTIC-10 ORAL) Take by mouth. - perflutren lipid microspheres (DEFINIT Y) 1.1 mg/mL injection (to be provided with echo procedure) Inject 1.3 mL intravenously as ne eded for up to 1 dose. Instructions Administration Instructions: If no IV access, insert saline lock prior to administering contrast. Discont inue saline lock post exam. If patient has central line or IVAD, may access for administration acco rding to line specific nursing protocol. Once exam is complete, flush line and de-access per line specific nursing protocol. Diluted IV Bolus: Dilute 1 .3 ml of Definity with 8.7 ml of preservative-free saline 1.3 mL 0 - COMBIVENT RESPIMAT 20-100 mcg/actuation inhale r Inhale 1 Puff as instructed four times daily. - fluticasone propion/salmeterol (ADVAIR DISKUS INHALATION) Inhale as instructed. Medication reconciliation: Completed OTC/Herbal medications: None Anticoagulation: Not currently prescribed OARRS review: Data consistent with prescription history Social History: Tobacco: History of use: quit 03/15/2010 ETOH: Denies Illicit drugs: Denies Adherence Assessment: ? Medications managed by: Family member ? Patient brought: Medication list ? Patient knows name, indica tions, dose, frequency of his/her medications? 100% ? Do you sometimes forget to take your medicine?: No ? Over the past two weeks, were there any days when you did not take your medicine?: No ? Have you ever cut back or stopped taking your medication without telling your doctor, because you felt worse when you took it?: Yes (Combivent and Advair) ? When you travel or leave home, do you sometimes forg et to bring along your medications?: No ? Do you have a good support system at home wher e someone can help you manage your medications post-transp lantation until you are able to do so on your own?: Yes Vaccination History Review: There is no immunization history on file for this patient. May consider the following vaccinations prior to transplanta tion: ? HBV, Prevnar and Shingrix Comorbidity Monitoring ? Blood Pressure: 100/48mmHg (normally ~120/80 at home) ? Carvedilol 6.25mg BID ? Cholesterol: LDL Cholesterol: 42 (06/23/2020) ? Diabetes: HBA1C: 5.3% (2017 - no current h/o diabetes) ? Thyroid: TSH: 3.380 (06/23/2020) ? Bone health: Vitamin D 25 Hydroxy: 15.0 (06/23/2020) ? Mental health: depression, anxiety ? Sertraline 50 mg every day Education provided: Patient was given an overview of immunosuppressant therapy and was provided an example MedActionPlan. Patient was edu cated on expected adverse effects and the importance of adherence to transplan t medication regimens. All questions were answered to patient?s sat isfaction. Patient was informed to contact the clinic if any questions or concerns arise. VISIT SUMMARY ? Potential drug-drug interaction with immunosuppressant reg imen: No ? Anticipate post-transplant medication regimen non-adherenc e? No ? Factors affecting learning: None Time spent completing evaluation: 30 minutes There are no medication issues identified that would precl ude transplant in this patient. Ryland Woods, PharmD PGY2 Solid Organ Transplant Senior Administrative Associate [phone] Referring Provider: CONOR VANESSA [[id number]] Allergies As of Date: 06/24/2020 (Not on File) Date Reviewed: 06/24/2020 Reviewed by: Sirena (Rn) DIMITRIOS Ibrahim - Fully Assessed Visit Diagnosis:Encounter for medication review and counseli devi [Z71.89] Prescriptions as of 06/24/2020 Sig: SERTRALINE 50 MG TABLET Take 50 mg by mouth once pablito* SPIRONOLACTONE 100 MG TABLET Take 200 mg by mouth once grisel* RIFAXIMIN 550 MG TABLET Take by mouth twice daily. FUROSEMIDE 40 MG TABLET Take 40 mg by mouth once pablito* CARVEDILOL 6.25 MG TABLET Take 6.25 mg by mouth twice d* CITRUCEL 500 MG TABLET Take by mouth. ESOMEPRAZOLE MAGNESIUM 20 MG * Take 20 mg by mouth DAILY (6 * CONSTULOSE ORAL Take by mouth. PROBIOTIC-10 ORAL Take by mouth. PERFLUTREN LIPID MICROSPHERES* Inject 1.3 mL intravenously a * COMBIVENT RESPIMAT 20 MCG-100* Inhale 1 Puff as instructed f * ADVAIR DISKUS INHALATION Inhale as instructed. Problem List As Of Date: 06/24/2020 (None) Encounter Status:Closed by SUNNY (WOOD FLOUR MILLER)RON on 06/24/20 cncnpated on 2019- 0-13 CNCNPATED Education (TXCTMN) Normal 06-24-2020 [facility] BECKY Escalante ([id number]) 1955 [address] [facility] Date Time Provider Department ([id number]) 06/24/20 [facility]) TXCTMN Reason for Visit: Patient Education [91] Progress Notes: Xi Barksdale RN, RN 06/24/2020 4:35 PM Signed Met with patient/family to discuss the following information : [x] Patient was provided the Surgical Site Infection FAQ she et [x] SRTR information provided and questi ons answered. Informed patient to call public information coordinator with any questions [x] Patient was provided the OS brochure on multiple listing and waiting time transfer [x]Evaluation process including presentation to selection co mmittee, OSOTC approval and listing criteria reviewed [x]Surgical procedure, including post-operative manage ment, hospitalization, lifelong immunosuppressive medications and their side effects (including the risk for hypertension, diabetes, kidney problems and cance rs) and [place] [facility] follow up after transplant. Possibility of recurrent disea se discussed with patient. [x]Patient is aware of the potential medical, surgical or psychosocial risks [x] Patient is aware that th ey will need a patient care secretary to be available for the first 8-12 weeks after discharge from the hospital. [x] Patient informed that in order to maintain their UNOS li sting status periodic test will be requir ed. If they fail to keep appointments or to undergo required lab testing, listing status may be affected. [x]Discussed organ donor risk factors, including potential risk of developing transmissible disease including but not limited to HIV, hepa titis B and C, malaria, and malignancy during liver transplant. [x]Patient advised that they may be aske d to consider donors with positive lab results such as Hepatitis B or Hepatitis C, depending on their circumstances [x]Patient was advised of hi s/her right to decline offers for transplant without any penalty [x]Patient was advised that he/she can refuse transplantation at any time prior to transplant without any penalty. [x]Patient was advised that if they choose not to proceed wi th transplant, alternative treatment will be provided. Alternative treatmen t may include medications to control fluid buildup or medications to preve nt confusion. [x] Patient told their protected health information would be released to OSOTC and UNOS in order to be placed on the UNOS waiting list for a donor organ. [x] Patient told that my medical informa tion and procedures, without revealing my identity may be used for teaching and research activities . [x] Patient told they are responsible fo r arranging for payment for costs that are not covered by insurance . Patient advised that insurance approval is needed prior to listing. [x] Patient told that the [facility] is a teaching facility and part of care, under the guidance of my physicians, may be co nducted by Residents, [place] and students. [x]Patient advised that transplants not performed in a medic are-approved hospital may negatively affe ct payment for medication coverage by Medicare Part B. [x]We make every attempt to provide transplant service s 24 hours per day. We would notify you of any closure and assist in making alter teller transplant arrangements. [x] Patient told they are responsible fo r arranging for payment for costs that are not covered by insurance . Patient advised that insurance approval is needed prior to listing. [x] Patient told that the [facility] is a teaching facility and part of care, under the guidance of my physicians, may be co nducted by Residents, [place] and students. [x]Patient advised that transplants not performed in a medic are-approved hospital may negatively affe ct payment for medication coverage by Medicare Part B. [x]We make every attempt to provide transplant service s 24 hours per day. We would notify you of any closure and assist in making alter teller transplant arrangements. AMBULATORY PATIENT EDUCATION NOTE PRE-OP TEACHING PROCEDURE: Liver transplant READINESS TO LEARN COGNITIVE ABILITY: Alert and oriented MOTIVATION TO LEARN: Disinterested / avoidant FAMILY SUPPORT: High - Very involved in pt care INSTRUCTION PROVIDED TO: Patient and Spouse PATIENT LEARNS BEST BY: Multiple Methods FACTORS AFFECTING LEARNING: None PHYSICAL LIMITATIONS AFFECTING LEARNING: Fatigue LEARNING RESPONSE DIAGNOSIS: DIXON METHOD OF INSTRUCTION: Written instruction - handouts Verbal instruction PATIENT / FAMILY RESPONSE: I nformation received as demonstrated by interest and questions FOLLOW-UP PLAN: Patient instructed to call with any further issues Contact information given. SUPPLEMENTAL MATERIAL: None REFERRAL (RECOMMENDATION): None Electronically Signed By: Xi Barksdale RN In Department: TRANSPLANT CENTER During your visit today, we recorded the following informati on about you: Allergies As of Date: 06/24/2020 (Not on File) Date Reviewed: 06/24/2020 Reviewed by: Sirena Mejía) DIMITRIOS Ibrahim - Fully Assessed Prescriptions as of 06/24/2020 Sig: COMBIVENT RESPIMAT 20 MCG-100* Inhale 1 Puff as instructed f * ADVAIR DISKUS INHALATION Inhale as instructed. SERTRALINE 50 MG TABLET Take 50 mg by mouth once pablito* SPIRONOLACTONE 100 MG TABLET Take 200 mg by mouth once grisel* RIFAXIMIN 550 MG TABLET Take by mouth twice daily. FUROSEMIDE 40 MG TABLET Take 40 mg by mouth once pablito* CARVEDILOL 6.25 MG TABLET Take 6.25 mg by mouth twice d* CITRUCEL 500 MG TABLET Take by mouth. ESOMEPRAZOLE MAGNESIUM 20 MG * Take 20 mg by mouth DAILY (6 * CONSTULOSE ORAL Take by mouth. PROBIOTIC-10 ORAL Take by mouth. PERFLUTREN LIPID MICROSPHERES* Inject 1.3 mL intravenously a * Encounter Status:Closed by XI [facility] on 06/24/20 No panel information on 2020-06-24 LV Ejection Fraction 52 % 0 [facility] ([id number]) [facility] ([id number]) vitamin e on 2019-09 Vitamin E-alpha 11.0 6.0-23.0 mg/L Normal 06-23-2020 [facility] ([id number]) Comment: Performed By: #### EBVG, VIT A, EVIT, LIPB, HFP, FERR, VZVG2, PTT, IRON, TOXP, BMP, TSH, HREMOP, SARAH LG, VITD, AHAVT, PT, PSAS1, HIV12C, AFP, CMVG, SYPHTX, CBCDIF ####[facility] [id number] [place], [place] [phone]#### A 1APHE ####[address] [phone] Vitamin E-gamma 1.5 0.3-3.2 mg/L Normal 06-23-2020 [facility] ([id number]) Comment: Result Comment: This test wa s developed and its performance characteristics determined by [facility]'s [facility] [place] ([facility]). It has not been cleared or a pproved by the FDA. [facility] is regulated under CLIA as qualified to perform high complexity testing. This test is used for clinic al purposes. It should not be regarded as investigational or for research. Performed By: #### EBVG, VIT A, EVIT, LIPB, HFP, FERR, VZVG2, PTT, IRON, TOXP, BMP, TSH, HREMOP, SARAH LG, VITD, AHAVT, PT, PSAS1, HIV12C, AFP, CMVG, SYPHTX, CBCDIF ####[place] [id number] [place], [place] [phone]#### A 1APHE ####[address] [phone] vitamin d 25 hydroxy on 2020-06-23 Vitamin D 25 Hydroxy 15.0 31.0-80.0 ng/mL Low 0 [facility] ([id number]) Comment: Result Comment: Classificati on of 25 [place] Vitamin D status: Insufficiency/Moderate Defic iency: < or = 30 ng/mL Sufficiency/Optimal Levels: 31 to 80 ng/mL Toxicity: > 100 ng/mL Test performed by chemilumin escent immunoassay. Performed By: #### EBVG, VIT A, EVIT, LIPB, HFP, FERR, VZVG2, PTT, IRON, TOXP, BMP, TSH, HREMOP, SARAH LG, VITD, AHAVT, PT, PSAS1, HIV12C, AFP, CMVG, SYPHTX, CBCDIF ####[address] [phone]#### A 1APHE ####[address] [phone] vitamin a on 2019-0912 Vitamin A 0.11 0.30-1.20 mg/L Low 06-23-2020 [facility] ([id number]) Comment: Result Comment: This test wa s developed and its performance characteristics determined by [facility]'s [facility] [place] ([facility]). It has not been cleared or a pproved by the FDA. [facility] is regulated under CLIA as qualified to perform high complexity testing. This test is used for clinic al purposes. It should not be regarded as investigational or for research. Performed By: #### EBVG, VIT A, EVIT, LIPB, HFP, FERR, VZVG2, PTT, IRON, TOXP, BMP, TSH, HREMOP, SARAH LG, VITD, AHAVT, PT, PSAS1, HIV12C, AFP, CMVG, SYPHTX, CBCDIF ####[address] [phone]#### A 1APHE ####[address] [phone] varicella zoster igg on 2020-06-23 V. zoster IgG, Positive Negative Critically abnormal 06-23 [facility] ([id number]) Comment: Result Comment: Presence of detectable VZV IgG antibodies. A positive result generally indicates exposure to the pathogen or administration of specific immunoglobulins, but is no i ndication of active infection or stage of disease. Performed By: #### EBVG, VIT A, EVIT, LIPB, HFP, FERR, VZVG2, PTT, IRON, TOXP, BMP, TSH, HREMOP, SARAH LG, VITD, AHAVT, PT, PSAS1, HIV12C, AFP, CMVG, SYPHTX, CBCDIF ####[address] [phone]#### A 1APHE ####[address] [phone] Varicella Zoster IgG >4000.0 Normal 0 [facility] (98668) Comment: Result Comment: Index Values are Interpreted as Follows: Negative specimens <135.0 Equivocal specimens 135.0 to 164.9 Positive specimens >164.9 The magnitude of the measure d result is not indicative of the amount of antibody present. Performed By: #### EBVG, VIT A, EVIT, LIPB, HFP, FERR, VZVG2, PTT, IRON, TOXP, BMP, TSH, HREMOP, SARAH LG, VITD, AHAVT, PT, PSAS1, HIV12C, AFP, CMVG, SYPHTX, CBCDIF ####[address] [phone]#### A 1APHE ####[address] [phone] type and screen on 2020-06-23 ABO/RH(D) AB NEGATIVE Normal 06-23-2020 [facility] ([id number]) Comment: Performed By: #### TSCR #### [place] [phone] tx confirm abo/rh ccf us e only on 2020-06-23 ABO/RH(D) AB NEGATIVE Normal 06-23-2020 [facility] ([id number]) Comment: Performed By: #### TRCABO ## ##[address] [phone] tsh on 2020-06-23 TSH Qn 3.380 0.270-4.200 uU/mL Normal 06-23-2020 [facility] ([id number]) Comment: Performed By: #### EBVG, VIT A, EVIT, LIPB, HFP, FERR, VZVG2, PTT, IRON, TOXP, BMP, TSH, HREMOP, SARAH LG, VITD, AHAVT, PT, PSAS1, HIV12C, AFP, CMVG, SYPHTX, CBCDIF ####[place] [phone]#### A 1APHE ####[address] [phone] toxicology screen,ur on 2020-06-23 Amphetamines, Urine Negative Negative Normal 06-23-2020 [facility] ([id number]) Comment: Result Comment: Cutoff thres hold at 1000 ng/mL. Performed By: #### UTOX2 ### #[address] [phone] Barbiturates, Urine Negative Negative Normal 06-23-2020 [facility] (76634) Comment: Result Comment: Cutoff thres hold at 200 ng/mL. Performed By: #### UTOX2 ### #[place] [phone] Benzodiazepines, Ur Negative Negative Normal 06-23-2020 [facility] (61771) Comment: Result Comment: Cutoff thres hold at 200 ng/mL. Performed By: #### UTOX2 ### #[place] [address] [employer] [place] [phone] Cannabinoids, Urine Negative Negative Normal 06-23-2020 [facility] (10741) Comment: Result Comment: Cutoff thres hold at 50 ng/mL. Performed By: #### UTOX2 ### #[place] [address] [employer] [place] [phone] Cocaine, Urine Negative Negative Normal 06-23-2020 [facility] ([id number]) Comment: Result Comment: Cutoff thres hold at 300 ng/mL. Performed By: #### UTOX2 ### #[place] [address] [employer] [place] [phone] Ethanol, Urine 14 <11 mg/dL High 06-23-2020 [facility] ([id number]) Comment: Performed By: #### UTOX2 ### #[place] [address] [employer] [place] [phone] Opiates, Urine Negative Negative Normal 06-23-2020 [facility] ([id number]) Comment: Result Comment: Cutoff thres hold at 300 ng/mL. Performed By: #### UTOX2 ### #[place] [address] [place] [phone] Oxycodone, Urine Negative Negative Normal 06-23-2020 [facility] ([id number]) Comment: Result Comment: Cutoff thres hold at 100 ng/mL. Comment: Immunoassay screen only. Vending Machine Technician ss reactivity with other substances can occur with immunoassay screening. Detection of any drug(s) in this urine toxicology panel is presumptive only. These tests are for med ical purposes only and shoul d not be used for compliance monitoring, legal, or forensic use. Samples should be within nor mal physiological conditions (e.g. pH). This assay does not include adulteration/specimen validity testing. In clinical settings, confir matory testing is at the practitioner's discretion [1]. If clinically indicated, confirmation by high specificity, quantitative methodology, which includes adulteration/speci men validity testing, may be requested on the same specimen through Client Services ([phone]) if contacted within 48 hours of initial testing. [1]Substance Abuse and [facility] Services Administration (2012). Clinical Drug Testing in Primary Care Technical Assistance Publication Series 32. Department of Health and Human Services, [place], p.10. Performed By: #### UTOX2 ### #[facility] [place], [place] [phone] Phencyclidine, Urine Negative Negative Normal 0 [facility] (75677) Comment: Result Comment: Cutoff thres hold at 25 ng/mL. Performed By: #### UTOX2 ### #[place] [id number] [place], [place] [phone] toxicology panel bld on 2020-06-23 Acetaminophen [Mass/Vol] <5 - Low 06-23 [facility] (09794) Comment: Result Comment: Toxic > 150 ug/mL 4 hours post ingestion The Reyna Jeff nomogram can be used to estimate the probability of hepatotoxicity via the relationship of plasma acetaminophen concentration to the post ingestion interval. (Maria Del Carmen. Pedi atrics. 1975. 55:871 to 876 and Reyna et al. Arch Bisque Placer Med. 1981. 141:380 to 385). Reference ranges and high/lo w indicator flags are provided as general guidelines only. The treating physician must determine appropriate target levels/dosing based on the specific clinical situation. Performed By: #### EBVG, VIT A, EVIT, LIPB, HFP, FERR, VZVG2, PTT, IRON, TOXP, BMP, TSH, HREMOP, SARAH LG, VITD, AHAVT, PT, PSAS1, HIV12C, AFP, CMVG, SYPHTX, CBCDIF ####[facility] [place], [place] [phone]#### A 1APHE ####[address] [phone] Ethanol [Mass/Vol] <11 <11 mg/dL Normal 06-23-2020 [facility] ([id number]) Comment: Performed By: #### EBVG, VIT A, EVIT, LIPB, HFP, FERR, VZVG2, PTT, IRON, TOXP, BMP, TSH, HREMOP, SARAH LG, VITD, AHAVT, PT, PSAS1, HIV12C, AFP, CMVG, SYPHTX, CBCDIF ####[facility] [employer] [place], [place] [phone]#### A 1APHE ####[address] [phone] Salicylate <0.3 3.0-30.0 Low 06-23-2020 [facility] ([id number]) Comment: Result Comment: The therapeu tic range varies and has been reported to be 3.0 to 10.0 mg/dL for anti pyretic/analgesic conditions and 15.0 to 30.0 mg/dL for anti inflammatory/rheumatic fever conditions. Ranges published by the inst rument awning finisher. Reference ranges and high/lo w indicator flags are provided as general guidelines only. The treating physician must determine appropriate target levels/dosing based on the specific clinical situation. Performed By: #### EBVG, VIT A, EVIT, LIPB, HFP, FERR, VZVG2, PTT, IRON, TOXP, BMP, TSH, HREMOP, SARAH LG, VITD, AHAVT, PT, PSAS1, HIV12C, AFP, CMVG, SYPHTX, CBCDIF ####[facility] [address] [employer] [place], [place] [phone]#### A 1APHE ####[facility] [place], [place] [phone] tb by quantiferon o n 2020-06-23 Interpretation No evidence of current or Normal 06-23-2020 [facility] previous infection with Manning ([id number]) Mycobacterium tuberculosis. Comment: Performed By: #### INFTBP ## ##[place] [id number] [employer] [place], [place] [phone] Mitogen minus Nil 3.51 Normal 06-23-2020 [facility] (18799) Comment: Performed By: #### INFTBP ## ##[place] [phone] TB NIL 0.03 IU/mL Normal 06-23-2020 [facility] ([id number]) Comment: Performed By: #### INFTBP ## ##[place] [phone] TB Result Negative Negative Normal 06-23-2020 [facility] (15676) Comment: Performed By: #### INFTBP ## ##[place] [phone] [place], [place] [phone] TB1 Ag minus Nil 0.00 <0.35 IU/mL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 with 8.7 ml of preservative-free saline No current facility-administered medications on file prior t o visit. O/E Chronic ill appearing, jaundiced, moving stiffly BP 122/59 Pulse 83 Temp 36.8 ?C (98.2 ?F) (Temporal Kristin ry) Ht 175.3 cm (5' 9) Wt 86.2 kg (190 lb) SpO2 97% BMI 28.06 kg/m ? Body mass index is 28.06 kg/m?. skin: w+d HEENT: nc/at Chest: clear to A+P CVS: rrr Abd: soft, nt, min distended. no masses, no palp hsm Ext: no c/c/e A/p 64 yo man w ESLD attrib to f atty liver, in the context of multiple risk factors for the metabolic syndrome Course to date has been c/b portal hyper tension, ascites?? Refractory, hepatic encephalopathy, anemia, sarcopenia, and an episode of acute kidney injury triggered by sepsis Now referred for OLT evaluation Based on most recent labs, Computed MELD-Na score 19 Long discussion regarding issues and implications Suggested 1. OLT Labs pending ?Complete remainder of evaluation, as scheduled 2. Volume overload/ascites ?2 g sodium diet, daily weights 3. Portal hypertension ?Managed endoscopically 4. Hepatic encephalopathy ?Under reasonable control on current regimen Follow-up on the phone RTC ~2?3 months Win Titus MD I spent 60 minutes in the visit, with more than 50% of the total biss-ol-uhbp time of the visit in counseling / coordination of care. Referring Provider: CONOR VANESSA [[id number]] Allergies As of Date: 06/23/2020 (Not on File) Date Reviewed: Never Reviewed Visit Diagnoses:Liver transplant candidate [Z76.82] DIXON (nonalcoholic steatohepatitis) [K75.81] Prescriptions as of 06/23/2020 Sig: SERTRALINE 50 MG TABLET Take 50 mg by mouth once pablito* SPIRONOLACTONE 100 MG TABLET Take 200 mg by mouth once grisel* RIFAXIMIN 550 MG TABLET Take by mouth twice daily. FUROSEMIDE 40 MG TABLET Take 40 mg by mouth once pablito* CARVEDILOL 6.25 MG TABLET Take 6.25 mg by mouth twice d* CITRUCEL 500 MG TABLET Take by mouth. ESOMEPRAZOLE MAGNESIUM 20 MG * Take 20 mg by mouth DAILY (6 * CONSTULOSE ORAL Take by mouth. PROBIOTIC-10 ORAL Take by mouth. PERFLUTREN LIPID MICROSPHERES* Inject 1.3 mL intravenously a * Problem List As Of Date: 06/23/2020 (None) Disposition: Return in about 3 months (around 09/23/2020). Follow-up and Disposition History Recorded Encounter Status:Closed by WIN TITUS MD on 06/27/20 cmv igg antibody on 2020-06-23 CMV IgG Antibody >10.00 Normal 06-23-2020 [facility] ([id number]) Comment: Result Comment: U/mL values are interpreted as follows: Negative: <0.60 Equivocal: >=0.60 to <0.70 Positive: >=0.70 The magnitude of the measure d result above the cutoff is not indicative of the amount of antibody present. Performed By: #### EBVG, VIT A, EVIT, LIPB, HFP, FERR, VZVG2, PTT, IRON, TOXP, BMP, TSH, HREMOP, SARAH LG, VITD, AHAVT, PT, PSAS1, HIV12C, AFP, CMVG, SYPHTX, CBCDIF ####[address] [phone]#### A 1APHE ####[address] [phone] CMV IgG Qual Positive Negative Critically abnormal 020 [facility] (88826) Comment: Result Comment: Presence of detectable CMV IgG antibodies indicates either recent or past exposure to C MV. Performed By: #### EBVG, VIT A, EVIT, LIPB, HFP, FERR, VZVG2, PTT, IRON, TOXP, BMP, TSH, HREMOP, SARAH LG, VITD, AHAVT, PT, PSAS1, HIV12C, AFP, CMVG, SYPHTX, CBCDIF ####[address] [phone]#### A 1APHE ####[address] [phone] cbc and differential on 2020-06-23 Abs Baso 0.04 <0.11 k/uL Normal 06-23-2020 [facility] (17807) Comment: Performed By: #### EBVG, VIT A, EVIT, LIPB, HFP, FERR, VZVG2, PTT, IRON, TOXP, BMP, TSH, HREMOP, SARAH LG, VITD, AHAVT, PT, PSAS1, HIV12C, AFP, CMVG, SYPHTX, CBCDIF ####[address] [phone]#### A 1APHE ####[address] [phone] Abs [place] 0.88 <0.87 k/uL High 06-23-2020 [facility] (00988) Comment: Performed By: #### EBVG, VIT A, EVIT, LIPB, HFP, FERR, VZVG2, PTT, IRON, TOXP, BMP, TSH, HREMOP, SARAH LG, VITD, AHAVT, PT, PSAS1, HIV12C, AFP, CMVG, SYPHTX, CBCDIF ####[address] [phone]#### A 1APHE ####[address] [phone] Abs Neut 5.23 1.45-7.50 k/uL Normal 06-23-2020 [facility] (64945) Comment: Performed By: #### EBVG, VIT A, EVIT, LIPB, HFP, FERR, VZVG2, PTT, IRON, TOXP, BMP, TSH, HREMOP, SARAH LG, VITD, AHAVT, PT, PSAS1, HIV12C, AFP, CMVG, SYPHTX, CBCDIF ####[address] [phone]#### A 1APHE ####[address] [phone] Absolute nRBC <0.01 <0.01 Normal 06-23-2020 [facility] (68640) Comment: Performed By: #### EBVG, VIT A, EVIT, LIPB, HFP, FERR, VZVG2, PTT, IRON, TOXP, BMP, TSH, HREMOP, SARAH LG, VITD, AHAVT, PT, PSAS1, HIV12C, AFP, CMVG, SYPHTX, CBCDIF ####[address] [phone]#### A 1APHE ####[address] [phone] Basophils/100 WBC (Bld) 0.5 % Normal 2019 [facility] (50267) Comment: Performed By: #### EBVG, VIT A, EVIT, LIPB, HFP, FERR, VZVG2, PTT, IRON, TOXP, BMP, TSH, HREMOP, SARAH LG, VITD, AHAVT, PT, PSAS1, HIV12C, AFP, CMVG, SYPHTX, CBCDIF ####[address] [phone]#### A 1APHE ####[address] [phone] DTYPE Auto Diff Normal 06-23-2020 [facility] (24194) Comment: Performed By: #### EBVG, VIT A, EVIT, LIPB, HFP, FERR, VZVG2, PTT, IRON, TOXP, BMP, TSH, HREMOP, SARAH LG, VITD, AHAVT, PT, PSAS1, HIV12C, AFP, CMVG, SYPHTX, CBCDIF ####[place] [phone]#### A 1APHE ####[address] [phone] Eosinophils (Bld) [#/Vol] 0.07 <0.46 k/uL Normal 06-12 [facility] (52683) Comment: Performed By: #### EBVG, VIT A, EVIT, LIPB, HFP, FERR, VZVG2, PTT, IRON, TOXP, BMP, TSH, HREMOP, SARAH LG, VITD, AHAVT, PT, PSAS1, HIV12C, AFP, CMVG, SYPHTX, CBCDIF ####[address] [phone]#### A 1APHE ####[address] [phone] Eosinophils/100 WBC (Bld) 0.9 % Normal 06-12 [facility] (31635) Comment: Performed By: #### EBVG, VIT A, EVIT, LIPB, HFP, FERR, VZVG2, PTT, IRON, TOXP, BMP, TSH, HREMOP, SARAH LG, VITD, AHAVT, PT, PSAS1, HIV12C, AFP, CMVG, SYPHTX, CBCDIF ####[address] [phone]#### A 1APHE ####[address] [phone] Erythrocyte distribution 23.6 11.5-15.0 % High 06-23 [facility] width (RBC) [Ratio] [facility] (60718) Comment: Performed By: #### EBVG, VIT A, EVIT, LIPB, HFP, FERR, VZVG2, PTT, IRON, TOXP, BMP, TSH, HREMOP, SARAH LG, VITD, AHAVT, PT, PSAS1, HIV12C, AFP, CMVG, SYPHTX, CBCDIF ####[address] [phone]#### A 1APHE ####[address] [phone] Hematocrit (Bld) [Volume 25.9 39.0-51.0 % Low 06-23 [facility] (47532) Comment: Performed By: #### EBVG, VIT A, EVIT, LIPB, HFP, FERR, VZVG2, PTT, IRON, TOXP, BMP, TSH, HREMOP, SARAH LG, VITD, AHAVT, PT, PSAS1, HIV12C, AFP, CMVG, SYPHTX, CBCDIF ####[address] [phone]#### A 1APHE ####[address] [phone] Hemoglobin (Bld) 7.9 13.0-17.0 g/dL Low 06-23-2020 [facility] [Mass/Vol] [facility] (10086) Comment: Performed By: #### EBVG, VIT A, EVIT, LIPB, HFP, FERR, VZVG2, PTT, IRON, TOXP, BMP, TSH, HREMOP, SARAH LG, VITD, AHAVT, PT, PSAS1, HIV12C, AFP, CMVG, SYPHTX, CBCDIF ####[address] [phone]#### A 1APHE ####[address] [phone] Lymphocytes (Bld) [#/Vol] 1.52 1.00-4.00 k/uL Normal 06-12 [facility] (50355) Comment: Performed By: #### EBVG, VIT A, EVIT, LIPB, HFP, FERR, VZVG2, PTT, IRON, TOXP, BMP, TSH, HREMOP, SARAH LG, VITD, AHAVT, PT, PSAS1, HIV12C, AFP, CMVG, SYPHTX, CBCDIF ####[address] [phone]#### A 1APHE ####[address] [phone] Lymphocytes/100 WBC (Bld) 19.6 % Normal 06-12 [facility] (78878) Comment: Performed By: #### EBVG, VIT A, EVIT, LIPB, HFP, FERR, VZVG2, PTT, IRON, TOXP, BMP, TSH, HREMOP, SARAH LG, VITD, AHAVT, PT, PSAS1, HIV12C, AFP, CMVG, SYPHTX, CBCDIF ####[address] [phone]#### A 1APHE ####[address] [phone] MCH (RBC) [Entitic mass] 30.2 26.0-34.0 pG Normal 06-23 [facility] (25095) Comment: Performed By: #### EBVG, VIT A, EVIT, LIPB, HFP, FERR, VZVG2, PTT, IRON, TOXP, BMP, TSH, HREMOP, SARAH LG, VITD, AHAVT, PT, PSAS1, HIV12C, AFP, CMVG, SYPHTX, CBCDIF ####[address] [phone]#### A 1APHE ####[address] [phone] MCHC (RBC) [Mass/Vol] 30.5 30.5-36.0 g/dL Normal 06-23-20 [facility] (56478) Comment: Performed By: #### EBVG, VIT A, EVIT, LIPB, HFP, FERR, VZVG2, PTT, IRON, TOXP, BMP, TSH, HREMOP, SARAH LG, VITD, AHAVT, PT, PSAS1, HIV12C, AFP, CMVG, SYPHTX, CBCDIF ####[address] [phone]#### A 1APHE ####[address] [phone] MCV (RBC) [Entitic vol] 98.9 80.0-100.0 fL Normal 06-23 [facility] (55210) Comment: Performed By: #### EBVG, VIT A, EVIT, LIPB, HFP, FERR, VZVG2, PTT, IRON, TOXP, BMP, TSH, HREMOP, SARAH LG, VITD, AHAVT, PT, PSAS1, HIV12C, AFP, CMVG, SYPHTX, CBCDIF ####[address] [phone]#### A 1APHE ####[address] [phone] Monocytes/100 WBC (Bld) 11.4 % Normal 2019 [facility] (21639) Comment: Performed By: #### EBVG, VIT A, EVIT, LIPB, HFP, FERR, VZVG2, PTT, IRON, TOXP, BMP, TSH, HREMOP, SARAH LG, VITD, AHAVT, PT, PSAS1, HIV12C, AFP, CMVG, SYPHTX, CBCDIF ####[address] [phone]#### A 1APHE ####[address] [phone] Neutrophils/100 WBC (Bld) 67.6 % Normal 06-12 [facility] (08108) Comment: Performed By: #### EBVG, VIT A, EVIT, LIPB, HFP, FERR, VZVG2, PTT, IRON, TOXP, BMP, TSH, HREMOP, SARAH LG, VITD, AHAVT, PT, PSAS1, HIV12C, AFP, CMVG, SYPHTX, CBCDIF ####[address] [phone]#### A 1APHE ####[address] [phone] NRBCs 0.0 0 /100 WBC Normal 06-23-2020 [facility] (42158) Comment: Performed By: #### EBVG, VIT A, EVIT, LIPB, HFP, FERR, VZVG2, PTT, IRON, TOXP, BMP, TSH, HREMOP, SARAH LG, VITD, AHAVT, PT, PSAS1, HIV12C, AFP, CMVG, SYPHTX, CBCDIF ####[address] [phone]#### A 1APHE ####[address] [phone] Platelet mean volume 10.4 9.0-12.7 fL Normal 0 [facility] (Bld) [Entitic vol] [facility] (46690) Comment: Performed By: #### EBVG, VIT A, EVIT, LIPB, HFP, FERR, VZVG2, PTT, IRON, TOXP, BMP, TSH, HREMOP, SARAH LG, VITD, AHAVT, PT, PSAS1, HIV12C, AFP, CMVG, SYPHTX, CBCDIF ####[address] [phone]#### A 1APHE ####[address] [phone] Platelets (Bld) [#/Vol] 115 150-400 k/uL Low 2019 [facility] (72132) Comment: Performed By: #### EBVG, VIT A, EVIT, LIPB, HFP, FERR, VZVG2, PTT, IRON, TOXP, BMP, TSH, HREMOP, SARAH LG, VITD, AHAVT, PT, PSAS1, HIV12C, AFP, CMVG, SYPHTX, CBCDIF ####[address] [phone]#### A 1APHE ####[address] [phone] RBC (Bld) [#/Vol] 2.62 4.20-6.00 m/uL Low 06-23-2020 [facility] (83713) Comment: Performed By: #### EBVG, VIT A, EVIT, LIPB, HFP, FERR, VZVG2, PTT, IRON, TOXP, BMP, TSH, HREMOP, SARAH LG, VITD, AHAVT, PT, PSAS1, HIV12C, AFP, CMVG, SYPHTX, CBCDIF ####[address] [phone]#### A 1APHE ####[address] [phone] WBC (Bld) [#/Vol] 7.74 3.70-11.00 k/uL Normal 06-23-2020 [facility] (74814) Comment: Performed By: #### EBVG, VIT A, EVIT, LIPB, HFP, FERR, VZVG2, PTT, IRON, TOXP, BMP, TSH, HREMOP, SARAH LG, VITD, AHAVT, PT, PSAS1, HIV12C, AFP, CMVG, SYPHTX, CBCDIF ####[facility] [place], [place] [phone]#### A 1APHE ####[address] [phone] basic metabolic panl on 2020-06-23 Anion gap [Moles/Vol] 10 9-18 mmol/L Normal 06-23-20 [facility] (24020) Comment: Performed By: #### EBVG, VIT A, EVIT, LIPB, HFP, FERR, VZVG2, PTT, IRON, TOXP, BMP, TSH, HREMOP, SARAH LG, VITD, AHAVT, PT, PSAS1, HIV12C, AFP, CMVG, SYPHTX, CBCDIF ####[address] [phone]#### A 1APHE ####[address] [phone] Calcium [Mass/Vol] 9.0 8.5-10.2 mg/dL Normal 06-23-2020 [facility] (77243) Comment: Performed By: #### EBVG, VIT A, EVIT, LIPB, HFP, FERR, VZVG2, PTT, IRON, TOXP, BMP, TSH, HREMOP, SARAH LG, VITD, AHAVT, PT, PSAS1, HIV12C, AFP, CMVG, SYPHTX, CBCDIF ####[facility] [place], [place] [phone]#### A 1APHE ####[address] [phone] Chloride [Moles/Vol] 98 97-105 mmol/L Normal 0 [facility] (49537) Comment: Performed By: #### EBVG, VIT A, EVIT, LIPB, HFP, FERR, VZVG2, PTT, IRON, TOXP, BMP, TSH, HREMOP, SARAH LG, VITD, AHAVT, PT, PSAS1, HIV12C, AFP, CMVG, SYPHTX, CBCDIF ####[address] [phone]#### A 1APHE ####[address] [phone] CO2 [Moles/Vol] 23 22-30 mmol/L Normal 06-23-2020 [facility] (38181) Comment: Performed By: #### EBVG, VIT A, EVIT, LIPB, HFP, FERR, VZVG2, PTT, IRON, TOXP, BMP, TSH, HREMOP, SARAH LG, VITD, AHAVT, PT, PSAS1, HIV12C, AFP, CMVG, SYPHTX, CBCDIF ####[address] [phone]#### A 1APHE ####[address] [phone] Creatinine [Mass/Vol] 0.90 0.73-1.22 mg/dL Normal 06-23-20 20 [facility] (84065) Comment: Performed By: #### EBVG, VIT A, EVIT, LIPB, HFP, FERR, VZVG2, PTT, IRON, TOXP, BMP, TSH, HREMOP, SARAH LG, VITD, AHAVT, PT, PSAS1, HIV12C, AFP, CMVG, SYPHTX, CBCDIF ####[address] [phone]#### A 1APHE ####[address] [phone] eGFR- Amer. >60 Normal 06-23-2020 [facility] (34532) Comment: Performed By: #### EBVG, VIT A, EVIT, LIPB, HFP, FERR, VZVG2, PTT, IRON, TOXP, BMP, TSH, HREMOP, SARAH LG, VITD, AHAVT, PT, PSAS1, HIV12C, AFP, CMVG, SYPHTX, CBCDIF ####[facility] [address] [place], [place] [phone]#### A 1APHE ####[facility] [id number] [place], [place] [phone] GFR/1.73 sq M predicted >60 mL/min/{1.73_m2} Normal 06-23-2020 [facility] among non-blacks [facility] (99023) (S/P/Bld) [Vol rate/Area] Comment: Result Comment: eGFR (Estima eliel GFR) Units of measure: mL/min/1.73 meters squared eGFR is derived from the ree xpressed MDRD Study equation using the following parameters: serum creatinine, age, gender and race. The creatinine assay has been calibrated to be traceable to IDMS. An eGFR <60 mL/min/1.73m2 fo r >3 months is consistent with chronic kidney disease. Refer to KDOQI guidelines for clinical interpretation. In patients with unstable re nal function, e.g. those with acute kidney injury, the eGFR may not accurately reflect actual GFR. Performed By: #### EBVG, VIT A, EVIT, LIPB, HFP, FERR, VZVG2, PTT, IRON, TOXP, BMP, TSH, HREMOP, SARAH LG, VITD, AHAVT, PT, PSAS1, HIV12C, AFP, CMVG, SYPHTX, CBCDIF ####[facility] [id number] [place], [place] [phone]#### A 1APHE ####[facility] [id number] [place], [place] [phone] Glucose [Mass/Vol] 174 74-99 mg/dL High 06-23-2020 [facility] ([id number]) Comment: Result Comment: The [place] [employer] (ADA) provides guidance for cutoff values for fasting glucose and random glucose. The ADA defines fasting as no caloric intake for at least 8 hours. Fas ting plasma glucose results between 100 to 125 mg/dL indicate increased risk for diabetes (prediabetes). Fasting plasma glucose resul ts greater than or equal to 126 mg/dL meet the criteria for diagnosis of diabetes. In the absence of unequivocal hyperglycemia, results should be confirmed by repeat testing. In a patient with classic s ymptoms of hyperglycemia or hyperglycemic crisis, random plasma glucose results greater than or equal to 200 mg/dL meet the criteria for diagnosis of diabetes. Reference: Standards of [facility] Care in Diabetes 2016, [place] [employer]. Diabetes Care. 2016.39(Suppl 1). Performed By: #### EBVG, VIT A, EVIT, LIPB, HFP, FERR, VZVG2, PTT, IRON, TOXP, BMP, TSH, HREMOP, SARAH LG, VITD, AHAVT, PT, PSAS1, HIV12C, AFP, CMVG, SYPHTX, CBCDIF ####[facility] [id number] [place], [place] [phone]#### A 1APHE ####[facility] [id number] [place], [place] [phone] Potassium [Moles/Vol] 3.9 3.7-5.1 mmol/L Normal 06-23-20 [facility] ([id number]) Comment: Performed By: #### EBVG, VIT A, EVIT, LIPB, HFP, FERR, VZVG2, PTT, IRON, TOXP, BMP, TSH, HREMOP, SARAH LG, VITD, AHAVT, PT, PSAS1, HIV12C, AFP, CMVG, SYPHTX, CBCDIF ####[facility] [id number] [place], [place] [phone]#### A 1APHE ####[facility] [id number] [place], [place] [phone] Sodium [Moles/Vol] 131 136-144 mmol/L Low 06-23-2020 [facility] ([id number]) Comment: Performed By: #### EBVG, VIT A, EVIT, LIPB, HFP, FERR, VZVG2, PTT, IRON, TOXP, BMP, TSH, HREMOP, SARAH LG, VITD, AHAVT, PT, PSAS1, HIV12C, AFP, CMVG, SYPHTX, CBCDIF ####[place] [id number] [place], [place] [phone]#### A 1APHE ####AR [address] [place] [address] [phone] Urea nitrogen [Mass/Vol] 18 9-24 mg/dL Normal 06-23 [facility] ([id number]) Comment: Performed By: #### EBVG, VIT A, EVIT, LIPB, HFP, FERR, VZVG2, PTT, IRON, TOXP, BMP, TSH, HREMOP, SARAH LG, VITD, AHAVT, PT, PSAS1, HIV12C, AFP, CMVG, SYPHTX, CBCDIF ####[address] [phone]#### A 1APHE ####[address] [phone] aptt on 2020-06-23 aPTT Coag (Bld) [Time] 25.6 23.0-32.4 sec Normal 020 [facility] ([id number]) Comment: Result Comment: Unfractionat ed Heparin Therapeutic Ranges: Standard Heparin Nomogram: 5 3 to 78 seconds (anti-Xa level of 0.3 to 0.7 U/ml) Low Dose/ACS Nomogram: 49 to 67 seconds (anti-Xa level of 0.2 to 0.5 U/ml) Stroke Treatment Nomogram: 4 9 to 67 seconds (anti-Xa level of 0.2 to 0.5 U/ml) Note: The APTT therapeutic r kristen has been determined for the current lot of laboratory APTT reagent in use throughout the [facility]. Performed By: #### EBVG, VIT A, EVIT, LIPB, HFP, FERR, VZVG2, PTT, IRON, TOXP, BMP, TSH, HREMOP, SARAH LG, VITD, AHAVT, PT, PSAS1, HIV12C, AFP, CMVG, SYPHTX, CBCDIF ####[place] [id number] [place], [place] [phone]#### A 1APHE ####[address] [phone] alpha1 antitry pheno on 2020-06-23 Alpha1 Antitry Phen M1M2 Normal 06-23-2020 [facility] ([id number]) Comment: Result Comment: (NOTE) The patient appears to have a normal phenotype. All M alleles (including subtypes M1, M2, and M3) produce normal serum concentrations of alpha-1-pr otease inhibitor and are not associated with clinical dis ease. Caution in interpretation is advised if the patient has b een transfused within the previous 21 days. Performed By: [facility] [address] [place] [address] Quality Assurance Technician: Mary Kate Barksdale MD Performed By: #### EBVG, VIT A, EVIT, LIPB, HFP, FERR, VZVG2, PTT, IRON, TOXP, BMP, TSH, HREMOP, SARAH LG, VITD, AHAVT, PT, PSAS1, HIV12C, AFP, CMVG, SYPHTX, CBCDIF ####[address] [phone]#### A 1APHE ####[address] [phone] Alpha1 Antitry Serum 186 90-200 mg/dL Normal 0 [facility] (14731) Comment: Result Comment: (NOTE) To convert to umol/L, multip ly mg/dL by 0.185 Performed By: #### EBVG, VIT A, EVIT, LIPB, HFP, FERR, VZVG2, PTT, IRON, TOXP, BMP, TSH, HREMOP, SARAH LG, VITD, AHAVT, PT, PSAS1, HIV12C, AFP, CMVG, SYPHTX, CBCDIF ####[facility] [place], [place] [phone]#### A 1APHE ####[facility] [place], [place] [phone] afp on 2020-06-23 AFP <3.0 <11.0 Normal 06-23-2020 [facility] (21476) Comment: Result Comment: AFP levels < 11 ng/ml can be found in a variety of conditions, Hepatocellular Carcinoma and Non-seminomatous testicular cancer among others. Correlation with clinical picture and other test results including hist opathology and radiology, where applicable, is recommended. Result rechecked. Performed By: #### EBVG, VIT A, EVIT, LIPB, HFP, FERR, VZVG2, PTT, IRON, TOXP, BMP, TSH, HREMOP, SARAH LG, VITD, AHAVT, PT, PSAS1, HIV12C, AFP, CMVG, SYPHTX, CBCDIF ####[facility] [place], [place] [phone]#### A 1APHE ####[facility] [place], [place] [phone] cnpn on 2020-06-20 CNPN Telephone (TXCTMN) Normal 06-20-2020 [facility] BECKY HUTCHISON ([id number]) 1955 [facility] Date Time Provider Department ([id number]) 06/20/20 OMERO HENRY (RN) TXCTMN During your visit today, we recorded the following informati on about you: Omero Henry RN, RN 06/20/2020 10:44 AM Signed The following information has been provided/disc ussed with the patient/family during Shared Medical Appointment education zoom class. ? Informed Consent for Organ Transplant Program Participati on version 2019. ? SRTR information provided and questions answered. In formed patient to call public information coordinator with any questions. ? UNOS information regarding multiple listings for organ tra nsplantation ? A copy of [place] [facility] (OSOTC) gabby sampson. The information was reviewed with patient and all questions answ ered. ? Evaluation process including presentation to selection com mittee, OSOTC approval and listing criteria ? Surgical procedure, including post-operative management, hospitalization, immunosuppressive medications and their side effects ( including the risk for hypertension, diabetes, kidney problems and cancers) a nd [place] [facility] follow up after transplant. Possibility of recurrent disease discussed with patient. ? Patient was advised that if they choose not to proceed wit h transplant, alternative treatment will be provided ? Potential medical or psychosocial risks ? Discussed organ donor risk factors including potential r isk of developing transmissible disease including but not limited to HIV, hepa titis B and C, malaria, and malignancy. Patient's right to decline such offers for transplant was also addressed ? Patient was provided with [facility] information she et regarding transplantation of Hepatitis C viremic organs into Hepatitis C negative recipients. Risks and benefits of hepatitis C transplant a nd treatment were discussed. ? Patient was advised that he/she can re fuse transplantation at any time prior to transplant without any penalty. ? Patient advised that transplants not performed in a medica re-approved hospital may negatively affe ct payment for medication coverage by Medicare Part B. INFORMED CONSENT Becky Hutchison Medical Record: [id number] Informed consent for Organ Transplant Program Participation Informed Consent for Organ Transplant P rogram Participation version 2019 was provided to patient. The risks, benefits, alternatives and anticipated outcomes o f the Organ Transplant Program Participation, and tasks of the personn el to be involved were discussed with the patient. The patient con sents to participation in the Organ Transplant Program. The patient was provided an opportunity to ask questions a nd have questions answered. Omero Henry, RN, MSN, [facility] Liver Transplant Coordina tor June 20, 2020 Allergies As of Date: 06/20/2020 (Not on File) Date Reviewed: Never Reviewed Reason for Visit: Pt. Ed ( Informed Consent) [970] Prescriptions as of 06/20/2020 Sig: PERFLUTREN LIPID MICROSPHERES* Inject 1.3 mL intravenously a * Problem List As Of Date: 06/20/2020 (None) Encounter Status:Closed by OMERO HENRY on 06/20/20 cnpn on 2020-06-19 CNPN Telephone (TXCTMN) Normal 06-19-2020 [facility] BECKY HUTCHISON ([id number]) 1955 [facility] Date Time Provider Department ([id number]) 06/19/20 LIVER TXP COORDINATOR TXCTMN During your visit today, we recorded the following informati on about you: Millie Fisher 06/19/2020 11:45 AM Signed Spoke with patient's to confirm chantale eduled Liver Transplant evaluation for next week. COVID 19 Screening: Have you had any of the following symptoms within the past 2 weeks: -Fever No -Cough No -More out of breath or winded than usual No -Diarrhea No -Body aches No -Congestion/runny nose No -Sore throat No -Been tested for COVID 19 No -Had contact with anyone sick No -You or your family travelled outside of the [place] No Did they receive the BLUE AND GREEN folders? Yes Will hand carry the following n/a Remind patient to fast for 12 hours prior to lab draw Yes Remind patient that they cannot have a caregiver present due to COVID19 restrictions Yes Does patient have to hold Beta Tania No. if yes, reminded them. Remind patient to bring their schedule that is printed from our scheduling office and not the postcard reminder Yes Allergies As of Date: 06/19/2020 (Not on File) Date Reviewed: Never Reviewed Reason for Visit: Reminder Call OLT Eval Appt's [Other] COVID19 Screening [Other] Prescriptions as of 06/19/2020 Sig: PERFLUTREN LIPID MICROSPHERES* Inject 1.3 mL intravenously a * Problem List As Of Date: 06/19/2020 (None) Encounter Status:Closed by SIRENA FELDMAN on cbc on 2020-06-18 Erythrocyte distribution 24.2 11.5-14.5 % High 06-18 [facility] width (RBC) [Ratio] ([place]) ([address]132) Comment: Performed By: #### MORPH, CB C, ADIFF, ANEU, GFR, MG, BMP ####[place] [address] [place] [address] Performed By: #### BMP, MG, GFR, MORPH, CBC, ADIFF, ANEU ####[place] J[address]ts[address] [place] [address]87 Hematocrit (Bld) [Volume 22.2 42.0-52.0 % Low 06-18 [facility] fraction] ([place]) (0000 0) Comment: Performed By: #### MORPH, CB C, ADIFF, ANEU, GFR, MG, BMP ####[place] [address] [place] [address] Performed By: #### BMP, MG, GFR, MORPH, CBC, ADIFF, ANEU ####[place] [address] Hemoglobin (Bld) 7.4 14.0-18.0 G/dL Low 06-18-2020 [facility] [Mass/Vol] ([place]) (000 00) Comment: Performed By: #### MORPH, CB C, ADIFF, ANEU, GFR, MG, BMP ####[place] T[address] [place] [phone] Performed By: #### BMP, MG, GFR, MORPH, CBC, ADIFF, ANEU ####[place] [address] [place], [place] [address]27 MCH (RBC) [Entitic mass] 31.4 27.0-31.2 pg High 06-18 [facility] ([place]) (0000 0) Comment: Performed By: #### MORPH, CB C, ADIFF, ANEU, GFR, MG, BMP ####[place] [address] [place] [phone] Performed By: #### BMP, MG, GFR, MORPH, CBC, ADIFF, ANEU ####[place] [address] [place], [place] [address] MCHC (RBC) [Mass/Vol] 33.5 31.8-35.4 G/dL Normal 06-18-20 20 [facility] ([place]) (0000 0) Comment: Performed By: #### MORPH, CB C, ADIFF, ANEU, GFR, MG, BMP ####[place] Opr[address]sc[address] [place], [place] [address] Performed By: #### BMP, MG, GFR, MORPH, CBC, ADIFF, ANEU ####[place] X[address] [place], [place] [address] MCV (RBC) [Entitic vol] 93.7 80.0-94.0 fL Normal 2019 [facility] ([place]) (0000 0) Comment: Performed By: #### MORPH, CB C, ADIFF, ANEU, GFR, MG, BMP ####[place] [address] [place] [address] Performed By: #### BMP, MG, GFR, MORPH, CBC, ADIFF, ANEU ####[place] Vkzjolqb[address] [place], [place] [address] Platelet mean volume 7.8 7.4-10.4 fL Normal 0 [facility] (Bld) [Entitic vol] ([place]) (41111) Comment: Performed By: #### MORPH, CB C, ADIFF, ANEU, GFR, MG, BMP ####[place] Xfe[address] [place], [place] [address] Performed By: #### BMP, MG, GFR, MORPH, CBC, ADIFF, ANEU ####[place] C[address] [place], [place] [address] Platelets (Bld) [#/Vol] 84 130-400 10 3/mcL Low 2019 [facility] ([place]) (0000 0) Comment: Performed By: #### MORPH, CB C, ADIFF, ANEU, GFR, MG, BMP ####[place] [address] [place], [place] [address] Performed By: #### BMP, MG, GFR, MORPH, CBC, ADIFF, ANEU ####[place] B[address] [place] [address] RBC (Bld) [#/Vol] 2.36 4.04-6.13 10 6/mcL Low 06-18-2020 [facility] ([place]) (0000 0) Comment: Performed By: #### MORPH, CB C, ADIFF, ANEU, GFR, MG, BMP ####[place] P[address]ts[address] [address] Performed By: #### BMP, MG, GFR, MORPH, CBC, ADIFF, ANEU ####[place] [address] [place] [address] WBC (Bld) [#/Vol] 4.40 4.60-10.80 10 3/mcL Low 06-18-2020 [facility] ([place]) (0000 0) Comment: Performed By: #### MORPH, CB C, ADIFF, ANEU, GFR, MG, BMP ####[place] [address] [address] Performed By: #### BMP, MG, GFR, MORPH, CBC, ADIFF, ANEU ####[place] K[address] [address] .neuabs on Neutrophils (Bld) 3.10 2.85-6.16 10 3/mcL Normal 06-18-2020 [facility] [#/Vol] [facility] ([place]) (17170) Comment: Performed By: #### ANEU, CMP , GFR, ADIFF, CBC #### [place] [address] Performed By: #### CBC, ADIF F, ANEU, CMP, GFR #### [place] [address] .morph on 7 Anisocytosis Ql (Bld) Slight Normal 06-18-20 [facility] ([place]) (12493) Comment: Performed By: #### MORPH, CB C, ADIFF, ANEU, GFR, MG, BMP ####[place] [address] [address] Performed By: #### BMP, MG, GFR, MORPH, CBC, ADIFF, ANEU ####[place] [address] [place] [address]12787 Basophilic stippling LM Ql Slight Normal [facility] (d) ([place]) (0000 0) Comment: Performed By: #### MORPH, CB C, ADIFF, ANEU, GFR, MG, BMP ####[place] Oppekgew[address] [place] [address] Performed By: #### BMP, MG, GFR, MORPH, CBC, ADIFF, ANEU ####[place] Eaozkyml[address] [place] [address]87 Hypochrom Slight Normal 06-18-2020 [facility] ([place]) (43366) Comment: Performed By: #### MORPH, CB C, ADIFF, ANEU, GFR, MG, BMP ####[place] X[address] [place] [address] Performed By: #### BMP, MG, GFR, MORPH, CBC, ADIFF, ANEU ####[place] P[address]udjt[address] [place] [phone] Macrocytosis Slight Normal 06-18-2020 [facility] ([place]) (04531) Comment: Performed By: #### MORPH, CB C, ADIFF, ANEU, GFR, MG, BMP ####[place] [address] [place] [address] Performed By: #### BMP, MG, GFR, MORPH, CBC, ADIFF, ANEU ####[place] Ox[address]exr[address] [place] [phone] Platelets (Bld) [#/Vol] Decreased Normal 2019 [facility] ([place]) (0000 0) Comment: Performed By: #### MORPH, CB C, ADIFF, ANEU, GFR, MG, BMP ####[place] Rhultykf[address] [place] [address] Performed By: #### BMP, MG, GFR, MORPH, CBC, ADIFF, ANEU ####[address] [address] .auto diff on 06-18 Ammonia (P) [Mass/Vol] 0.60 0.15-1.00 10 3/mcL Normal 020 [facility] ([place]) (19040) Comment: Performed By: #### ANEU, CMP , GFR, ADIFF, CBC #### [address] [address] Performed By: #### CBC, ADIF F, ANEU, CMP, GFR #### [address] [address] Basophils (Bld) 0.00 0.00-0.19 10 3/mcL Normal 06-18-2020 [facility] [#/Vol] [facility] ([place]) ([address]306) Comment: Performed By: #### ANEU, CMP , GFR, ADIFF, CBC #### [place] [address] Performed By: #### CBC, ADIF F, ANEU, CMP, GFR #### [address] [address] Basophils/100 WBC (Bld) 0.6 0.0-2.5 % Normal 2019 [facility] ([place]) (0000 0) Comment: Performed By: #### ANEU, CMP , GFR, ADIFF, CBC #### [address] [address] Performed By: #### CBC, ADIF F, ANEU, CMP, GFR #### [address] [address] Eosinophils (Bld) 0.00 0.00-0.40 10 3/mcL Normal 06-18-2020 [facility] [#/Vol] [facility] ([place]) (28972) Comment: Performed By: #### ANEU, CMP , GFR, ADIFF, CBC #### [address] [address] Performed By: #### CBC, ADIF F, ANEU, CMP, GFR #### [address] [address] Eosinophils/100 WBC (Bld) 0.7 0.0-7.0 % Normal 100 [facility] ([place]) (0000 0) Comment: Performed By: #### ANEU, CMP , GFR, ADIFF, CBC #### [address] [address] Performed By: #### CBC, ADIF F, ANEU, CMP, GFR #### [address] [address] Lymphocytes (Bld) 0.60 0.77-3.85 10 3/mcL Low 06-18-2020 [facility] [#/Vol] [facility] ([place]) ([address]353) Comment: Performed By: #### ANEU, CMP , GFR, ADIFF, CBC #### [address] [address] Performed By: #### CBC, ADIF F, ANEU, CMP, GFR #### [address] [address] Lymphocytes/100 WBC (Bld) 14.2 10.0-50.0 % Normal 10-0 [facility] ([place]) (05771) Comment: Performed By: #### ANEU, CMP , GFR, ADIFF, CBC #### [address] [address] Performed By: #### CBC, ADIF F, ANEU, CMP, GFR #### [address] [address] Monocytes/100 WBC (Bld) 13.3 1.7-13.0 % High 2019 [facility] ([place]) (0000 0) Comment: Performed By: #### ANEU, CMP , GFR, ADIFF, CBC #### [address] [address] Performed By: #### CBC, ADIF F, ANEU, CMP, GFR #### [address] [address] Neutrophils/100 WBC (Bld) 71.2 37.0-80.0 % Normal 10-0 [facility] ([place]) (48465) Comment: Performed By: #### ANEU, CMP , GFR, ADIFF, CBC #### [place] [address] [address] Performed By: #### CBC, ADIF F, ANEU, CMP, GFR #### [place] [address] [place], [place] [address] mg on 2020-06-17 Magnesium [Mass/Vol] 2.0 1.8-2.4 mg/dL Normal 0 [facility] ([place]) (0000 0) Comment: Performed By: #### MORPH, CB C, ADIFF, ANEU, GFR, MG, BMP ####[place] [address] [place] [address] Performed By: #### BMP, MG, GFR, MORPH, CBC, ADIFF, ANEU ####[place] [address] [address] bmp on 2020-06-17 Calcium [Mass/Vol] 8.4 8.4-10.2 mg/dL Normal 06-17-2020 [facility] ([place]) (0000 0) Comment: Performed By: #### MORPH, CB C, ADIFF, ANEU, GFR, MG, BMP ####[place] [address] [address] Performed By: #### BMP, MG, GFR, MORPH, CBC, ADIFF, ANEU ####[place] [address] [place] [address] Chloride [Moles/Vol] 103 98-107 mmol/L Normal 0 [facility] ([place]) (0000 0) Comment: Performed By: #### MORPH, CB C, ADIFF, ANEU, GFR, MG, BMP ####[place] [address] [place], [place] [address] Performed By: #### BMP, MG, GFR, MORPH, CBC, ADIFF, ANEU ####[place] [address] [place] [address] CO2 [Moles/Vol] 24 23-31 mmol/L Normal 06-17-2020 [facility]ending [facility] to [facility] ([place]) (05192) Comment: Performed By: #### MORPH, CB C, ADIFF, ANEU, GFR, MG, BMP ####[place] [address] [place], [place] [address] Performed By: #### BMP, MG, GFR, MORPH, CBC, ADIFF, ANEU ####[place] [address] [place], [place] [address] Creatinine [Mass/Vol] 0.86 0.70-1.30 mg/dL Normal 06-17-20 [facility] ([place]) (71368) Comment: Performed By: #### MORPH, CB C, ADIFF, ANEU, GFR, MG, BMP ####[place] [address] [place], [place] [address] Performed By: #### BMP, MG, GFR, MORPH, CBC, ADIFF, ANEU ####[place] [address] [place] [id number] Electrolyte Balance 9.0 mEq/L Normal 06-17-2020 [facility] ([place]) (81599) Comment: Performed By: #### MORPH, CB C, ADIFF, ANEU, GFR, MG, BMP ####[place] [address] [place], [place] [address] Performed By: #### BMP, MG, GFR, MORPH, CBC, ADIFF, ANEU ####[place] [address] [place], [place] [address] Glucose [Mass/Vol] 157 80-115 mg/dL High 06-17-2020 [facility] ([place]) (11044) Comment: Performed By: #### MORPH, CB C, ADIFF, ANEU, GFR, MG, BMP ####[place] [address] [place], [place] [address] Performed By: #### BMP, MG, GFR, MORPH, CBC, ADIFF, ANEU ####[place] [address] [place], [place] [address] Potassium [Moles/Vol] 4.5 3.5-5.1 mmol/L Normal 06-17-20 [facility] ([place]) (0000 0) Comment: Performed By: #### MORPH, CB C, ADIFF, ANEU, GFR, MG, BMP ####[place] [address] [place], [place] [address] Performed By: #### BMP, MG, GFR, MORPH, CBC, ADIFF, ANEU ####[place] [address] [place], [place] [address] Sodium [Moles/Vol] 136 136-145 mmol/L Normal 06-17-2020 [facility] ([place]) (0000 0) Comment: Performed By: #### MORPH, CB C, ADIFF, ANEU, GFR, MG, BMP ####[place] [address] [place], [place] [address] Performed By: #### BMP, MG, GFR, MORPH, CBC, ADIFF, ANEU ####[place] [address] [place], [place] [address] Urea nitrogen [Mass/Vol] 17 7-18 mg/dL Normal 06-17 [facility] ([place]) (0000 0) Comment: Performed By: #### MORPH, CB C, ADIFF, ANEU, GFR, MG, BMP ####[place] [address] [place], [place] [address] Performed By: #### BMP, MG, GFR, MORPH, CBC, ADIFF, ANEU ####[place] [address]exv[address] [place], [place] [address] Urea nitrogen/Creatinine [Mass 20 7-27 ratio Normal 06-17-2020 [facility]] [facility] ([place]) ([address]235) Comment: Performed By: #### MORPH, CB C, ADIFF, ANEU, GFR, MG, BMP ####[place] [address] [place], [place] [address] Performed By: #### BMP, MG, GFR, MORPH, CBC, ADIFF, ANEU ####[place] [address] [place], [place] [address] .gfr on 2020-06-17 GFR 109 ml/min/1.73sqm Normal [facility] ([place]) (0000 0) Comment: Result Comment: GFR Population mean for Afri can Nigerian, Non- Americans Ages 20-29 = 116 mL/min/1.73 sq.m. Ages 30-39 = 107 mL/min/1.73 sq.m. Ages 40-49 = 99 mL/min/1.73 sq.m. Ages 50-59 = 93 mL/min/1.73 sq.m. Ages 60-69 = 85 mL/min/1.73 sq.m. Ages 70+ = 75 mL/min/1.73 sq .m. Chronic Kidney Disease: Less than 60 mL/min/1.73 square meters End Stage Renal Disease: Les s than 15 mL/min/1.73 square meters Performed By: #### MORPH, CB C, ADIFF, ANEU, GFR, MG, BMP ####[place] [address] [place], [place] [address] Performed By: #### BMP, MG, GFR, MORPH, CBC, ADIFF, ANEU ####[place] [address] [place], [place] [address] GFR Non- 90 ml/min/1.73sqm Normal 06-17-2020 [facility] ([place]) (36530) Comment: Result Comment: GFR Population mean for Afri can Nigerian, Non- Americans Ages 20-29 = 116 mL/min/1.73 sq.m. Ages 30-39 = 107 mL/min/1.73 sq.m. Ages 40-49 = 99 mL/min/1.73 sq.m. Ages 50-59 = 93 mL/min/1.73 sq.m. Ages 60-69 = 85 mL/min/1.73 sq.m. Ages 70+ = 75 mL/min/1.73 sq .m. Chronic Kidney Disease: Less than 60 mL/min/1.73 square meters End Stage Renal Disease: Les s than 15 mL/min/1.73 square meters Performed By: #### MORPH, CB C, ADIFF, ANEU, GFR, MG, BMP ####[place] [address] [place], [place] [address] Performed By: #### BMP, MG, GFR, MORPH, CBC, ADIFF, ANEU ####[place] [address] [place], [place] [address] xr chest 2 views on 2020-06-04 XR CHEST 2 VIEWS ORIGINAL Normal 06-04-2020 [facility] XR CHEST 2 VIEWS Fou [facility] ([place]) ([id number]) CLINICAL STATEMENT: sob. COMPARISON: 03/17/2020 FINDINGS: The heart is fadia l in size and there is no vascular congestion present. No consolidation, atelectasis or pleural fluid seen. No osseous abnormality with the exception of mild AC joint degenerative changes. IMPRESSION: No acute process. Interpreted By: Edwin Oconnor MD Preliminary Report By: Edwin Oconnor MD Electronically Signed By: Edwin Oconnor MD Dictated Date: 06/04/2020 3:56:25 PM Prelim Date: 06/04/2020 3:56:25 PM Sign Date: 06/04/2020 3:56:49 PM Ordering Provider:Jesse Valdivia us abdomen for ascites on 2020-06-04 US ABDOMEN FOR ORIGINAL Normal 06-04-2020 [facility] ASCITES Limited ultrasound the abdomen [facility] ([place]) (19935) HISTORY: Ascites COMPARISON: 03/12/2019 FINDINGS: Moderate ascites noted. Interpreted By: Edwin Oconnor MD Preliminary Report By: Edwin Oconnor MD Electronically Signed By: Edwin Oconnor MD Dictated Date: 06/04/2020 4:01:42 PM Prelim Date: 06/04/2020 4:01:42 PM Sign Date: 06/04/2020 4:02:08 PM Ordering Provider:Jesse Valdivia pro on 2020-06-04 INR Coag (PPP) [Relative 1.6 0.9-1.2 ratio High 06-04 [facility] time] ([place]) (0000 0) Comment: Result Comment: Standard Dos e 2.0 - 3.0 High Dose 2.5 - 3.5 The recommended therapeutic range for oral anticoagulant therapy is: LOW RISK: Prophylaxis of isabela ous thrombosis INR: 2.0 - 3.0 Treatment of pulmonary embol ism 2.0 - 3.0 Prevention of systemic embol ism 2.0 - 3.0 HIGH RISK: Mechanical prosth etic valves 2.5 - 3.5 Performed By: #### BMP, ANEU , ADIFF, CBC, GFR, PRO ####Al[place]ta [address] [place], [place] [address] Performed By: #### CBC, ADIF F, ANEU, PRO, BMP, GFR ####Milan [address] [place], [place] [address] PT Coag (PPP) [Time] 18.8 9.7-14.7 seconds High 0 [facility] ([place]) (0000 0) Comment: Performed By: #### BMP, ANEU , ADIFF, CBC, GFR, PRO ####[place] E[address] [place] [id number] Performed By: #### CBC, ADIF F, ANEU, PRO, BMP, GFR ####[place]ta [address]ws[address] [place] [address] cbc on 2020-06-04 Erythrocyte distribution 23.6 11.5-14.5 % High 06-04 [facility] width (RBC) [Ratio] ([place]) (07712) Comment: Performed By: #### BMP, ANEU , ADIFF, CBC, GFR, PRO ####[place] [address] [address] Performed By: #### CBC, ADIF F, ANEU, PRO, BMP, GFR ####[place] K[address]qqmyt[address] [place] [id number] Hematocrit (Bld) [Volume 24.5 42.0-52.0 % Low 06-04 [facility] fraction] ([place]) (0000 0) Comment: Performed By: #### BMP, ANEU , ADIFF, CBC, GFR, PRO ####Milan Tur[address] [place] [id number] Performed By: #### CBC, ADIF F, ANEU, PRO, BMP, GFR ####[place] Dfuxrhwt[address] [place] [id number] Hemoglobin (Bld) 8.0 14.0-18.0 G/dL Low 06-04-2020 [facility] [Mass/Vol] ([place]) (000 00) Comment: Performed By: #### BMP, ANEU , ADIFF, CBC, GFR, PRO ####[place]an [address]rotks[address] [place] [id number] Performed By: #### CBC, ADIF F, ANEU, PRO, BMP, GFR ####[place] [address] [place], [place] [address] MCH (RBC) [Entitic mass] 31.2 27.0-31.2 pg Normal 06-04 [facility] ([place]) (0000 0) Comment: Performed By: #### BMP, ANEU , ADIFF, CBC, GFR, PRO ####[place] [id number] Performed By: #### CBC, ADIF F, ANEU, PRO, BMP, GFR ####[address] [address] MCHC (RBC) [Mass/Vol] 32.6 31.8-35.4 G/dL Normal 06-04-20 20 [facility] ([place]) (0000 0) Comment: Performed By: #### BMP, ANEU , ADIFF, CBC, GFR, PRO ####[place] [id number] Performed By: #### CBC, ADIF F, ANEU, PRO, BMP, GFR ####45 [address] [address] MCV (RBC) [Entitic vol] 95.7 80.0-94.0 fL High 2019 [facility] ([place]) (0000 0) Comment: Performed By: #### BMP, ANEU , ADIFF, CBC, GFR, PRO ####[facility] [place], [place] [id number] Performed By: #### CBC, ADIF F, ANEU, PRO, BMP, GFR ####[facility] [place], [place] [id number] Platelet mean volume 8.4 7.4-10.4 fL Normal 0 [facility] (Bld) [Entitic vol] ([place]) ([address]16) Comment: Performed By: #### BMP, ANEU , ADIFF, CBC, GFR, PRO ####[facility] [place], [place] [id number] Performed By: #### CBC, ADIF F, ANEU, PRO, BMP, GFR ####[facility] [address] [place], [place] [address] Platelets (Bld) [#/Vol] 117 130-400 10 3/mcL Low 2019 [facility] ([place]) (0000 0) Comment: Performed By: #### BMP, ANEU , ADIFF, CBC, GFR, PRO ####[facility] [address] [place], [place] [address] Performed By: #### CBC, ADIF F, ANEU, PRO, BMP, GFR ####[facility] [address] [place], [place] [address] RBC (Bld) [#/Vol] 2.56 4.04-6.13 10 6/mcL Low 06-04-2020 [facility] ([place]) (0000 0) Comment: Performed By: #### BMP, ANEU , ADIFF, CBC, GFR, PRO ####[place] [address] [place], [place] [address] Performed By: #### CBC, ADIF F, ANEU, PRO, BMP, GFR ####[facility] [address] [place], [place] [address] WBC (Bld) [#/Vol] 7.10 4.60-10.80 10 3/mcL Normal 06-04-2020 [facility] ([place]) ([address]) Comment: Performed By: #### BMP, ANEU , ADIFF, CBC, GFR, PRO ####[facility] [address] [place], [place] [address] Performed By: #### CBC, ADIF F, ANEU, PRO, BMP, GFR ####[facility] [address] [place], [place] [address] bmp on 2020-06-04 Calcium [Mass/Vol] 8.6 8.4-10.2 mg/dL Normal 06-04-2020 [facility] ([place]) (0000 0) Comment: Performed By: #### BMP, ANEU , ADIFF, CBC, GFR, PRO ####[facility] [address] [place], [place] [address] Performed By: #### CBC, ADIF F, ANEU, PRO, BMP, GFR ####[facility] [address] [place], [place] [address] Chloride [Moles/Vol] 104 98-107 mmol/L Normal 0 [facility]) (0000 0) Comment: Performed By: #### BMP, ANEU , ADIFF, CBC, GFR, PRO ####[place] [address] [place], [place] [address] Performed By: #### CBC, ADIF F, ANEU, PRO, BMP, GFR ####[facility] [address] [place], [place] [address] CO2 [Moles/Vol] 23 23-31 mmol/L Normal 06-04-2020 [facility]) ([address]) Comment: Performed By: #### BMP, ANEU , ADIFF, CBC, GFR, PRO ####[facility] [address] [place], [place] [address] Performed By: #### CBC, ADIF F, ANEU, PRO, BMP, GFR ####[place] [address] [address] Creatinine [Mass/Vol] 0.93 0.70-1.30 mg/dL Normal 06-04-20 20 [facility]) ([address]) Comment: Performed By: #### BMP, ANEU , ADIFF, CBC, GFR, PRO ####[place] [address] [place], [place] [address] Performed By: #### CBC, ADIF F, ANEU, PRO, BMP, GFR ####[place] [address] [place], [place] [address] Electrolyte Balance 12.0 mEq/L Normal 06-04-2020 [facility] ([place]) ([address]) Comment: Performed By: #### BMP, ANEU , ADIFF, CBC, GFR, PRO ####[facility] [place], [place] [address] Performed By: #### CBC, ADIF F, ANEU, PRO, BMP, GFR ####[place] [address]zd[address] [place], [place] [address] Glucose [Mass/Vol] 108 80-115 mg/dL Normal 06-04-2020 [facility] ([place]) ([address]) Comment: Performed By: #### BMP, ANEU , ADIFF, CBC, GFR, PRO ####[place] [address] [place] [address] Performed By: #### CBC, ADIF F, ANEU, PRO, BMP, GFR ####[place] [address] [place], [place] [address] Potassium [Moles/Vol] 3.4 3.5-5.1 mmol/L Low 06-04-20 20 [facility] ([place]) (0000 0) Comment: Performed By: #### BMP, ANEU , ADIFF, CBC, GFR, PRO ####[place] [address] [address] Performed By: #### CBC, ADIF F, ANEU, PRO, BMP, GFR ####[place] [address] [address] Sodium [Moles/Vol] 139 136-145 mmol/L Normal 06-04-2020 [facility] ([place]) (0000 0) Comment: Performed By: #### BMP, ANEU , ADIFF, CBC, GFR, PRO ####[place] [address] [address] Performed By: #### CBC, ADIF F, ANEU, PRO, BMP, GFR ####[place] [address] [place] [address] Urea nitrogen [Mass/Vol] 12 7-18 mg/dL Normal 06-04 [facility] ([place]) (0000 0) Comment: Performed By: #### BMP, ANEU , ADIFF, CBC, GFR, PRO ####[place] [address] [place] [address] Performed By: #### CBC, ADIF F, ANEU, PRO, BMP, GFR ####[place] [address] [place] [address] Urea nitrogen/Creatinine [Mass 13 7-27 ratio Normal 06-04-2020 [facility]] [facility] ([place]) ([address]) Comment: Performed By: #### BMP, ANEU , ADIFF, CBC, GFR, PRO ####[place] [address] [place], [place] [address] Performed By: #### CBC, ADIF F, ANEU, PRO, BMP, GFR ####[place] [address] [place], [place] [address] .neuabs on Neutrophils (Bld) 4.90 2.85-6.16 10 3/mcL Normal 06-04-2020 [facility] [#/Vol] [facility] ([place]) ([address]) Comment: Performed By: #### BMP, ANEU , ADIFF, CBC, GFR, PRO ####[place] [address] [place], [place] [address] Performed By: #### CBC, ADIF F, ANEU, PRO, BMP, GFR ####[place] [address] [place], [place] [address] .gfr on 2020-06-04 GFR Non- 82 ml/min/1.73sqm Normal 06-04-2020 [facility] ([place]) ([address]) Comment: Result Comment: GFR Population mean for Afri can Nigerian, Non- Americans Ages 20-29 = 116 mL/min/1.73 sq.m. Ages 30-39 = 107 mL/min/1.73 sq.m. Ages 40-49 = 99 mL/min/1.73 sq.m. Ages 50-59 = 93 mL/min/1.73 sq.m. Ages 60-69 = 85 mL/min/1.73 sq.m. Ages 70+ = 75 mL/min/1.73 sq .m. Chronic Kidney Disease: Less than 60 mL/min/1.73 square meters End Stage Renal Disease: Les s than 15 mL/min/1.73 square meters Performed By: #### BMP, ANEU , ADIFF, CBC, GFR, PRO ####[place] [address] [place], [place] [address] Performed By: #### CBC, ADIF F, ANEU, PRO, BMP, GFR ####[place] [address] [place], [place] [address] GFR 100 ml/min/1.73sqm Normal 05-14 [facility] ([place]) (0000 0) Comment: Result Comment: GFR Population mean for Afri can Nigerian, Non- Americans Ages 20-29 = 116 mL/min/1.73 sq.m. Ages 30-39 = 107 mL/min/1.73 sq.m. Ages 40-49 = 99 mL/min/1.73 sq.m. Ages 50-59 = 93 mL/min/1.73 sq.m. Ages 60-69 = 85 mL/min/1.73 sq.m. Ages 70+ = 75 mL/min/1.73 sq .m. Chronic Kidney Disease: Less than 60 mL/min/1.73 square meters End Stage Renal Disease: Les s than 15 mL/min/1.73 square meters Performed By: #### BMP, ANEU , ADIFF, CBC, GFR, PRO ####[place] [address] [place] [address] Performed By: #### CBC, ADIF F, ANEU, PRO, BMP, GFR ####[place] [address] [place] [address] .auto diff on 06-04 Ammonia (P) [Mass/Vol] 0.90 0.15-1.00 10 3/[facility] Normal 020 [facility] ([place]) ([address]) Comment: Performed By: #### BMP, ANEU , ADIFF, CBC, GFR, PRO ####[place] [address] [place] [address] Performed By: #### CBC, ADIF F, ANEU, PRO, BMP, GFR ####[place] [address] [place] [address] Basophils (Bld) 0.10 0.00-0.19 10 3/mcL Normal 06-04-2020 [facility] [#/Vol] [facility] ([place]) ([address]) Comment: Performed By: #### BMP, ANEU , ADIFF, CBC, GFR, PRO ####[place] [address] [place] [address] Performed By: #### CBC, ADIF F, ANEU, PRO, BMP, GFR ####[place] [address] [place] [address] Basophils/100 WBC (Bld) 0.7 0.0-2.5 % Normal 2019 [facility] ([place]) (0000 0) Comment: Performed By: #### BMP, ANEU , ADIFF, CBC, GFR, PRO ####[place] [address] [place], [place] [address] Performed By: #### CBC, ADIF F, ANEU, PRO, BMP, GFR ####[place] [address] [place], [place] [address] Eosinophils (Bld) 0.10 0.00-0.40 10 3/mcL Normal 06-04-2020 [facility] [#/Vol] [facility] ([place]) ([address]) Comment: Performed By: #### BMP, ANEU , ADIFF, CBC, GFR, PRO ####[place] [address] [place], [place] [address] Performed By: #### CBC, ADIF F, ANEU, PRO, BMP, GFR ####[place] [address] [place], [place] [address] Eosinophils/100 WBC (Bld) 0.9 0.0-7.0 % Normal 05-14 [facility] ([place]) (0000 0) Comment: Performed By: #### BMP, ANEU , ADIFF, CBC, GFR, PRO ####[place] [address] [place], [place] [address] Performed By: #### CBC, ADIF F, ANEU, PRO, BMP, GFR ####[place] [address] [place], [place] [address] Lymphocytes (Bld) 1.20 0.77-3.85 10 3/mcL Normal 06-04-2020 [facility] [#/Vol] [facility] ([place]) ([address]) Comment: Performed By: #### BMP, ANEU , ADIFF, CBC, GFR, PRO ####[place] [address] [place], [place] [address] Performed By: #### CBC, ADIF F, ANEU, PRO, BMP, GFR ####[place] [address] [place] [id number] Lymphocytes/100 WBC (Bld) 17.4 10.0-50.0 % Normal 05-14 [facility] ([place]) ([address]) Comment: Performed By: #### BMP, ANEU , ADIFF, CBC, GFR, PRO ####[place] [address] [place], [place] [address] Performed By: #### CBC, ADIF F, ANEU, PRO, BMP, GFR ####[place] [address] [place], [place] [address] Monocytes/100 WBC (Bld) 12.5 1.7-13.0 % Normal 2019 [facility] ([place]) (0000 0) Comment: Performed By: #### BMP, ANEU , ADIFF, CBC, GFR, PRO ####[place] [address] [place], [place] [address] Performed By: #### CBC, ADIF F, ANEU, PRO, BMP, GFR ####[place] [address] [place], [place] [address] Neutrophils/100 WBC (Bld) 68.5 37.0-80.0 % Normal 05-14 [facility] ([place]) ([address]) Comment: Performed By: #### BMP, ANEU , ADIFF, CBC, GFR, PRO ####[place] [address] [place], [place] [address] Performed By: #### CBC, ADIF F, ANEU, PRO, BMP, GFR ####[place] [address] [place], [place] [address] cnpn on 2020-06-03 CNPN Telephone (TXCTMN) Normal 06-03-2020 [facility] BECKY Escalante ([id number]) 1955 Same[address] ORTIZ [facility] Date Time Provider Department ([id number]) 06/03/20 PARVIN PUENTE (RN) TXCTMN During your visit today, we recorded the following informati on about you: Parvin Puente RN, RN 06/03/2020 3:30 PM Signed [facility] Referral for Liver Transplant This is a 64 year old male with DIXON frankie er disease referred for OLT evaluation by Dr. Vanessa. I spoke with Spouse today and obtained all necessary infor mation. Full eval will be scheduled per protocol along with cardiology and pul monary. Pt has had a previous liver transplant evaluation: No Instructed Spouse to get dental clearance and provide the following medical records: cardiology records, EGD report. Spouse instructed to review information that ria l be sent via mail/UPS and to have someone accompany them to appointments (exp lained current [facility] visitation policy regarding outpatient visits due to COVID 19). A ll questions answered. Contact information provided and advised to call our office with any questions/concerns or schedule changes. Will schedule eval week of 06/23/20, pt will sign up f or myChart for virtual access. Parvin Puente RN MELD Na: 12 Medical History: PAST MEDICAL HISTORY Diagnosis Date - Ascites - Atrial fibrillation (HCC) 01 episode in 2017 during acute illness - CAD (coronary artery disease) - Cirrhosis (HCC) - COPD (chronic obstructive pulmonary disease) (HCC) - Depression - Diabetes (HCC) No meds currently - Esophageal varices (HCC) s/p banding - Fatigue - Former heavy cigarette smoker (20-39 per day) 2 PPD, quit 2009 - H/O acute renal failure 2016 2 separate episodes requiring short term dialysis (4 treatme nts each time) - H/O Clostridium difficile infection - H/O heart artery stent 2009 - Hemorrhoid - Hepatic encephalopathy (HCC) - SARWAT (iron deficiency anemia) - NE, 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 - Thrombocytopenia (HCC) Surgical History: PAST SURGICAL HISTORY Procedure Laterality Date - BACK SURGERY HX - EYE SURGERY HX artificial eye - LAPAROSCOPIC CHOLECYSTECTOMY - OTHER SURGICAL HISTORY (PLEASE SPECIFY) HX facial surgery secondary to accident Last Weight: 235 Lbs Mobility aid: None Substance History: Smoking: Yes: Amount: 2 PPD, # of years: 25, Last use: 2009 Cough: No Hoarseness: Yes ETOH: Yes: Last Drink: 3-4 yrs ago, Rehab: No Drugs: Yes: Last Use: high school, Rehab: No Health Maintenance: Last Mammogram: Not applicable Last Pap: Not applicable Last Dental Exam: >6 mo Last Derm Visit: never Last Colonoscopy: 03/27/18 Last Endoscopy: 04/08/20 Medications: Med list obtained: Yes Beta Tania: Yes No current outpatient medications on file. No current facility-administered medications for this visit. ALLERGIES Not on File Vaccination History (from previous 10 years - Hepatitis A an d B, Tetanus, Zostivax, Flu, Pneumonia, etc.): None per Allergies As of Date: 06/03/2020 (Not on File) Date Reviewed: Never Reviewed Reason for Visit: Referral - Liver Txp [[id number]] Cmt: Intake Primary Visit Diagnosis:Encounter for screening for malignan t neoplasm of prostate [Z12.5] Other Visit Diagnoses:Tobacco use [Z72.0] Liver transplant candidate [Z76.82] DIXON (nonalcoholic steatohepatitis) [K75.81] Order(s):BLOOD TB SCREEN [SQINFTBP] Order #: [id number] FUTU RE LIVER REC INIT W/U [SQLRIPW] Order #: [id number]: 1 FUTUR E ACTIVATED PTT [SQPTT] Order #: [id number] FUTURE ALPHA FETOPROTEIN BL [SQAFP] Order #: [id number] FUTURE CBC + DIFF [SQCBCDIF] Order #: [id number] FUTURE CMV IGG ANTIBODY BL [SQCMVG] Order #: [id number] FUTURE EMILIE-ORTEZ VCA IGG [SQEBVG] Order #: [id number] FUTURE FERRITIN BLD [SQFERR] Order #: [id number] FUTURE HEP A AB TOTAL [SQAHAVT] Order #: [id number] FUTURE HEP REMOTE PANEL BL [SQHREMOP] Order #: [id number] FUTURE HIV 1 2 COMBO(AG/AB),WITH REFLEX TO DIFFERENTIATION [SQHIV12 ] Order #: [id number] FUTURE IRON + TIBC [SQIRON] Order #: [id number] FUTURE LIPID PANEL BASIC [SQLIPB] Order #: [id number] FUTURE PROTHROMBIN TIME/PT [SQPT] Order #: [id number] FUTURE ALPHA 1 ANTITRYPSIN PHENOTYPE [DFT5SNYT] Order #: [id number] FUTURE VARICELLA ZOSTER IGG [SQVZVG] Order #: [id number] FUTURE TSH BLD [SQTSH] Order #: [id number] FUTURE SYPHILIS TOTAL W/REFLEX [SQSYPHTX] Order #: [id number] FUTUR E TOX SCREEN ROUT UR [SQUTOX2] Order #: [id number] FUTURE TOXICOLOGY PANEL BLD [SQTOXP] Order #: [id number] FUTURE TYPE + SCREEN [SQTSCR] Order #: [id number] FUTURE TRANSPLANT CONFIRM ABO/RH [SQTRCABO] Order #: [id number] FUT URE VITAMIN A/RETINOL [SQVITA] Order #: [id number] FUTURE VITAMIN D 25 HYDROXY [SQVITD] Order #: [id number] FUTURE RUBEOLA (MEASLES)IGG [SQMEASLG] Order #: [id number] FUTURE VITAMIN E/TOCOPHEROL [SQVITE] Order #: [id number] FUTURE BASIC METABOLIC PNL [SQBMP] Order #: [id number] FUTURE HEPATIC FUNCTION PNL [SQHFP] Order #: [id number] FUTURE CONSULT TO ANESTHESIOLOGY [9002] Order #: [id number]: 1 F UTURE CONSULT TO HEPATOLOGY [3701307] Order #: [id number]: 1 FU NUNOE CONSULT TO INFECTIOUS DISEASES [9065] Order #: [id number] : 1 FUTURE CONSULT TO NUTRITION THERAPY [9094] Order #: [id number]: 1 FUTURE LIVER TRANSPLANT EVALUATION APPOINTMENT [1736811] Order #: [id number]: 1 FUTURE PSA/PROSTSPECAG SCRN [SQPSAS1] Order #: [id number] FUTURE CT CHEST WO IVCON [6215897] Order #: [id number] FUTURE CT LIVER W IVCON [2099071] Order #: [id number] FUTURE iv contrast (will be provided with radiology test)CT LIVER W IVCON Inject, intravenously, once for 1 dose. No IV access, insert saline lock prior to the beginning of sedation, infusion, injection of imaging exam. Discontinue saline lock post exam. If Pt. has a central line or IVAD, may access for administration according to elton e specific nursing protocol. Once exam is complete flush line and de-ac cess according to line specific nursing protocol in the CT contra st administration guidelines link.Disp: 1 EachRfl: 0 CREATININE BLD [SQCRET] Order #: [id number] FUTURE ECHO [852663] Order #: [id number]: 1 FUTURE perflutren lipid microspheres (DEFINITY) 1.1 mg/mL injection (to be provided with echo procedure)Inject 1.3 mL intravenously as needed for up to 1 dose. Instructions Administration Instructions: If no IV access, insert saline lock prior to administering contrast. Discontinue saline lock post exam. If patient has central li ne or IVAD, may access for administration according to line specif ic nursing protocol. Once exam is complete, flush line and de-access pe r line specific nursing protocol. Diluted IV Bolus: Dilute 1.3 ml o f Definity with 8.7 ml of preservative-free salineDisp: 1.3 mLRfl: 0 ECG COMPLETE [ECG01] Order #: [id number] FUTURE SPIROMETRY BASELINE ONLY [4982235] Order #: [id number] FUTUR E CONSULT TO CARDIOLOGY [900] Order #: [id number]: 1 FUTUR E CONSULT TO DERMATOLOGY [900] Order #: [id number]: 1 FUTU RE CONSULT TO ENT [9007] Order #: [id number]: 1 FUTURE CONSULT TO PULMONARY MEDICINE [7967736] Order #: [id number] ty: 1 FUTURE LIVER TRANSPLANT EVALUATION APPOINTMENT [0301510] Order #: [id number]: 1 Prescriptions as of 06/03/2020 Sig: IV CONTRAST (RADIOLOGY PROCED* CT LIVER W IVCON Inject, intr * PERFLUTREN LIPID MICROSPHERES* Inject 1.3 mL intravenously a * Problem List As Of Date: 06/03/2020 (None) Prescriptions ordered this encounter Disp Refills Start End IV CONTRAST (RADIOLOGY PROCEDURE) 1 Ea* 0 06/03/2020 020 Class: In Office Sig: CT LIVER W IVCON Inject, intravenously, once for 1 do se. No IV access, insert saline lock prior to the beginning of sedation, infus ion, injection of imaging exam. Discontinue saline lock post exam . If Pt. has a central line or IVAD, may access for administration accord ing to line specific nursing protocol. Once exam is complete flush line and de-access according to line specific nursing protocol in the CT contrast administration guidelines link. PERFLUTREN LIPID MICROSPHERES 1.1 MG* 1.3 * 0 06/03/2020 Class: In Office Route: INTRAVENOUS Sig: Inject 1.3 mL intravenously as needed for up to 1 dose. Instructions Administration Instructions: If no IV access, insert saline lock prior to administering contrast. Discontinue saline lock post exam . If patient has central line or IVAD, may access for administration acco rding to line specific nursing protocol. Once exam is complete, flush line and de-access per line specific nursing protocol. Diluted IV Gabino us: Dilute 1.3 ml of Definity with 8.7 ml of preservative-free saline Encounter Status:Closed by WIN TITUS MD on 06/03/20 CNPN Telephone (TXCTMN) Normal 06-03-2020 [facility] BECKY Escalante ([id number]) 1955 [facility] Date Time Provider Department ([id number]) 06/03/20 PARVIN PUENTE (RN) TXCTMN During your visit today, we recorded the following informati on about you: Parvin Puente RN, RN 06/03/2020 10:25 AM Signed Call to pt for liver transplant intake. Left vm for pt to return call to the office. Parvin Puente RN Allergies As of Date: 06/03/2020 (Not on File) Date Reviewed: Never Reviewed Reason for Visit: Referral - Liver Txp [[id number]] Cmt: Intake - LM Problem List As Of Date: 06/03/2020 (None) Encounter Status:Closed by PARVIN PUENTE on 06/03/20 mg on 2020-05-28 Magnesium [Mass/Vol] 1.9 1.8-2.4 mg/dL Normal 0 [facility] ([place]) (0000 0) Comment: Performed By: #### BMP, MG, GFR, ANEU, ADIFF, CBC ####[place] [address] [place] [address] Performed By: #### CBC, ADIF F, ANEU, BMP, MG, GFR ####[place] [address]mu[address]zk[address] [place] [address] cbc on 2020-05-28 Erythrocyte distribution 22.1 11.5-14.5 % High 05-28 [facility] width (RBC) [Ratio] ([place]) ([address]258) Comment: Performed By: #### BMP, MG, GFR, ANEU, ADIFF, CBC ####[place] [address] [place] [address] Performed By: #### CBC, ADIF F, ANEU, BMP, MG, GFR ####[place] [address] [place] [address] Hematocrit (Bld) [Volume 24.0 42.0-52.0 % Low 05-28 [facility] fraction] ([place]) (0000 0) Comment: Performed By: #### BMP, MG, GFR, ANEU, ADIFF, CBC ####[place] [address] [place] [address] Performed By: #### CBC, ADIF F, ANEU, BMP, MG, GFR ####[place] [address] [place] [address] Hemoglobin (Bld) 7.9 14.0-18.0 G/dL Low 05-28-2020 [facility] [Mass/Vol] ([place]) (000 00) Comment: Performed By: #### BMP, MG, GFR, ANEU, ADIFF, CBC ####[place] [address] [place] [address] Performed By: #### CBC, ADIF F, ANEU, BMP, MG, GFR ####[place] [address] [place] [address] MCH (RBC) [Entitic mass] 31.3 27.0-31.2 pg High 05-28 [facility] ([place]) (0000 0) Comment: Performed By: #### BMP, MG, GFR, ANEU, ADIFF, CBC ####[place] [address] [place], [place] [address] Performed By: #### CBC, ADIF F, ANEU, BMP, MG, GFR ####[place] [address] [place], [place] [address] MCHC (RBC) [Mass/Vol] 32.9 31.8-35.4 G/dL Normal 05-28-20 20 [facility] ([place]) (0000 0) Comment: Performed By: #### BMP, MG, GFR, ANEU, ADIFF, CBC ####[place] [address] [place], [place] [address] Performed By: #### CBC, ADIF F, ANEU, BMP, MG, GFR ####[place] [address] [place], [place] [address] MCV (RBC) [Entitic vol] 95.2 80.0-94.0 fL High 2019 [facility] ([place]) (0000 0) Comment: Performed By: #### BMP, MG, GFR, ANEU, ADIFF, CBC ####[place] [address] [place], [place] [address] Performed By: #### CBC, ADIF F, ANEU, BMP, MG, GFR ####[place] [address]oc[address] [place], [place] [address] Platelet mean volume 8.0 7.4-10.4 fL Normal 0 [facility] (Bld) [Entitic vol] ([place]) ([address]368) Comment: Performed By: #### BMP, MG, GFR, ANEU, ADIFF, CBC ####[place] [address]rx[address] [place], [place] [address] Performed By: #### CBC, ADIF F, ANEU, BMP, MG, GFR ####[place] [address] [place], [place] [address] Platelets (Bld) [#/Vol] 82 130-400 10 3/mcL Low 2019 [facility] ([place]) (0000 0) Comment: Performed By: #### BMP, MG, GFR, ANEU, ADIFF, CBC ####[place] [address] [place], [place] [address] Performed By: #### CBC, ADIF F, ANEU, BMP, MG, GFR ####[place] [address] [place], [place] [address] RBC (Bld) [#/Vol] 2.52 4.04-6.13 10 6/mcL Low 05-28-2020 [facility] ([place]) (0000 0) Comment: Performed By: #### BMP, MG, GFR, ANEU, ADIFF, CBC ####[place] [address] [place], [place] [address] Performed By: #### CBC, ADIF F, ANEU, BMP, MG, GFR ####[place] [address] [place], [place] [address] WBC (Bld) [#/Vol] 4.60 4.60-10.80 10 3/mcL Normal 05-28-2020 [facility] ([place]) ([address]) Comment: Performed By: #### BMP, MG, GFR, ANEU, ADIFF, CBC ####[place] [address] [place], [place] [address] Performed By: #### CBC, ADIF F, ANEU, BMP, MG, GFR ####[place] [address] [place], [place] [address] bmp on 2020-05-28 Calcium [Mass/Vol] 8.0 8.4-10.2 mg/dL Low 05-28-2020 [facility] ([place]) ([address]74) Comment: Performed By: #### BMP, MG, GFR, ANEU, ADIFF, CBC ####[place] [address] [place], [place] [address] Performed By: #### CBC, ADIF F, ANEU, BMP, MG, GFR ####[place] [address] [place], [place] [address] Chloride [Moles/Vol] 103 98-107 mmol/L Normal 0 [facility] ([place]) (0000 0) Comment: Performed By: #### BMP, MG, GFR, ANEU, ADIFF, CBC ####[place] [address] [place], [place] [id number] Performed By: #### CBC, ADIF F, ANEU, BMP, MG, GFR ####[place] [id number] CO2 [Moles/Vol] 25 23-31 mmol/L Normal 05-28-2020 [facility] ([place]) (95738) Comment: Performed By: #### BMP, MG, GFR, ANEU, ADIFF, CBC ####[place] [address] [address] Performed By: #### CBC, ADIF F, ANEU, BMP, MG, GFR ####[place] [address] [address] Creatinine [Mass/Vol] 0.94 0.70-1.30 mg/dL Normal 05-28-20 [facility] ([place]) (15384) Comment: Performed By: #### BMP, MG, GFR, ANEU, ADIFF, CBC ####[place] [address] Performed By: #### CBC, ADIF F, ANEU, BMP, MG, GFR ####[place] [address] [address] Electrolyte Balance 8.0 mEq/L Normal 05-28-2020 [facility] ([place]) ([id number]) Comment: Performed By: #### BMP, MG, GFR, ANEU, ADIFF, CBC ####[place] [id number] Performed By: #### CBC, ADIF F, ANEU, BMP, MG, GFR ####[place] [id number] [id number] Glucose [Mass/Vol] 147 80-115 mg/dL High 05-28-2020 [facility] ([place]) ([id number]) Comment: Performed By: #### BMP, MG, GFR, ANEU, ADIFF, CBC ####[place] [id number] Performed By: #### CBC, ADIF F, ANEU, BMP, MG, GFR ####[place] [id number] [place], [place] [address] Potassium [Moles/Vol] 3.1 3.5-5.1 mmol/L Low 05-28-20 [facility] ([place]) (0000 0) Comment: Performed By: #### BMP, MG, GFR, ANEU, ADIFF, CBC ####[place] [address] [place], [place] [address] Performed By: #### CBC, ADIF F, ANEU, BMP, MG, GFR ####[place] [address] [place], [place] [address] Sodium [Moles/Vol] 136 136-145 mmol/L Normal 05-28-2020 [facility] [facility] ([place]) (0000 0) Comment: Performed By: #### BMP, MG, GFR, ANEU, ADIFF, CBC ####[address] [place], [place] [address] Performed By: #### CBC, ADIF F, ANEU, BMP, MG, GFR ####[place] [address] [place], [place] [address] Urea nitrogen [Mass/Vol] 11 7-18 mg/dL Normal 05-28 [facility] ([place]) (0000 0) Comment: Performed By: #### BMP, MG, GFR, ANEU, ADIFF, CBC ####[place] [address] [place], [place] [address] Performed By: #### CBC, ADIF F, ANEU, BMP, MG, GFR ####[place] [address] [place], [place] [address] Urea nitrogen/Creatinine [Mass 12 7-27 ratio Normal 05-28-2020 [facility]] [facility] [place]) ([address]) Comment: Performed By: #### BMP, MG, GFR, ANEU, ADIFF, CBC ####[place] [place], [place] [address] Performed By: #### CBC, ADIF F, ANEU, BMP, MG, GFR ####[place] [place], [place] [address] .neuabs on Neutrophils (Bld) 2.80 2.85-6.16 10 3/mcL Low 05-28-2020 [facility] [#/Vol] [facility] [place] ([place]) ([address]) Comment: Performed By: #### BMP, MG, GFR, ANEU, ADIFF, CBC ####[place]ta [address] [place], [place] [address] Performed By: #### CBC, ADIF F, ANEU, BMP, MG, GFR ####Al[address] [place], [place] [address] .gfr on 2020-05-28 GFR Non- 81 ml/min/1.73sqm Normal 05-28-2020 [facility] ([place]) (830[address]) Comment: Result Comment: GFR Population mean for Afri can Nigerian, Non- Americans Ages 20-29 = 116 mL/min/1.73 sq.m. Ages 30-39 = 107 mL/min/1.73 sq.m. Ages 40-49 = 99 mL/min/1.73 sq.m. Ages 50-59 = 93 mL/min/1.73 sq.m. Ages 60-69 = 85 mL/min/1.73 sq.m. Ages 70+ = 75 mL/min/1.73 sq .m. Chronic Kidney Disease: Less than 60 mL/min/1.73 square meters End Stage Renal Disease: Les s than 15 mL/min/1.73 square meters Performed By: #### BMP, MG, GFR, ANEU, ADIFF, CBC ####[address] [place], [place] [address] Performed By: #### CBC, ADIF F, ANEU, BMP, MG, GFR ####[place] [address] [place], [place] [address] GFR 99 ml/min/1.73sqm Normal 05-13 [facility] ([place]) (0000 0) Comment: Result Comment: GFR Population mean for Afri can Nigerian, Non- Americans Ages 20-29 = 116 mL/min/1.73 sq.m. Ages 30-39 = 107 mL/min/1.73 sq.m. Ages 40-49 = 99 mL/min/1.73 sq.m. Ages 50-59 = 93 mL/min/1.73 sq.m. Ages 60-69 = 85 mL/min/1.73 sq.m. Ages 70+ = 75 mL/min/1.73 sq .m. Chronic Kidney Disease: Less than 60 mL/min/1.73 square meters End Stage Renal Disease: Les s than 15 mL/min/1.73 square meters Performed By: #### BMP, MG, GFR, ANEU, ADIFF, CBC ####[address] [address] Performed By: #### CBC, ADIF F, ANEU, BMP, MG, GFR ####[address] [place], [place] [address] .auto diff on 05-28 Ammonia (P) [Mass/Vol] 0.80 0.15-1.00 10 3/mcL Normal 020 [facility] ([place]) ([address]) Comment: Performed By: #### BMP, MG, GFR, ANEU, ADIFF, CBC ####[place]ta [address] [address] Performed By: #### CBC, ADIF F, ANEU, BMP, MG, GFR ####[place] [address] [place], [place] [address] Basophils (Bld) 0.00 0.00-0.19 10 3/mcL Normal 05-28-2020 [facility] [#/Vol] [facility] [place] ([place]) ([address]) Comment: Performed By: #### BMP, MG, GFR, ANEU, ADIFF, CBC ####[place] [address] [address] Performed By: #### CBC, ADIF F, ANEU, BMP, MG, GFR ####[place] [address] [place], [place] [address] Basophils/100 WBC (Bld) 0.9 0.0-2.5 % Normal 2019 [facility] ([place]) (0000 0) Comment: Performed By: #### BMP, MG, GFR, ANEU, ADIFF, CBC ####[place] [address] [address] Performed By: #### CBC, ADIF F, ANEU, BMP, MG, GFR ####[address] [place], [place] [address] Eosinophils (Bld) 0.10 0.00-0.40 10 3/mcL Normal 05-28-2020 [facility] [#/Vol] [facility] [place] ([place]) ([address]) Comment: Performed By: #### BMP, MG, GFR, ANEU, ADIFF, CBC ####[address] [place] [address] Performed By: #### CBC, ADIF F, ANEU, BMP, MG, GFR ####[address] [place], [place] [address] Eosinophils/100 WBC (Bld) 1.7 0.0-7.0 % Normal 05-13 [facility] ([place]) (0000 0) Comment: Performed By: #### BMP, MG, GFR, ANEU, ADIFF, CBC ####[place] [place] [address] Performed By: #### CBC, ADIF F, ANEU, BMP, MG, GFR ####[place] [address] [place], [place] [address] Lymphocytes (Bld) 0.90 0.77-3.85 10 3/mcL Normal 05-28-2020 [facility] [#/Vol] [facility] [place] ([place]) ([address]) Comment: Performed By: #### BMP, MG, GFR, ANEU, ADIFF, CBC ####[address] [place] [address] Performed By: #### CBC, ADIF F, ANEU, BMP, MG, GFR ####[place] [place], [place] [address] Lymphocytes/100 WBC (Bld) 19.0 10.0-50.0 % Normal 05-13 [facility] ([place]) (72009) Comment: Performed By: #### BMP, MG, GFR, ANEU, ADIFF, CBC ####[address] [place] [address] Performed By: #### CBC, ADIF F, ANEU, BMP, MG, GFR ####[address] [address] Monocytes/100 WBC (Bld) 16.6 1.7-13.0 % High 2019 [facility] ([place]) (0000 0) Comment: Performed By: #### BMP, MG, GFR, ANEU, ADIFF, CBC ####[address] [address] Performed By: #### CBC, ADIF F, ANEU, BMP, MG, GFR ####[address] [address] Neutrophils/100 WBC (Bld) 61.8 37.0-80.0 % Normal 05-13 [facility] ([place]) (42219) Comment: Performed By: #### BMP, MG, GFR, ANEU, ADIFF, CBC ####[address] [address] Performed By: #### CBC, ADIF F, ANEU, BMP, MG, GFR ####[address] [address] mg on 2020-05-16 Magnesium [Mass/Vol] 2.0 1.8-2.4 mg/dL Normal 0 [facility] ([place]) (0000 0) Comment: Performed By: #### CBC, ADIF F, ANEU #### [address] [address] #### CMP, GFR #### [address] [address] cbc on 2020-05-16 Erythrocyte distribution 21.7 11.5-14.5 % High 05-16 [facility] width (RBC) [Ratio] ([place]) ([address]401) Comment: Performed By: #### CBC, ADIF F, ANEU #### [address] [address] #### CMP, GFR #### [address] [address] Hematocrit (Bld) [Volume 24.7 42.0-52.0 % Low 05-16 [facility] fraction] ([place]) (0000 0) Comment: Performed By: #### CBC, ADIF F, ANEU #### [address] [address] #### CMP, GFR #### [address] [address] Hemoglobin (Bld) 8.2 14.0-18.0 G/dL Low 05-16-2020 [facility] [Mass/Vol] ([place]) (000 00) Comment: Performed By: #### CBC, ADIF F, ANEU #### [place] [address] #### CMP, GFR #### [address] [address] MCH (RBC) [Entitic mass] 32.1 27.0-31.2 pg High 05-16 [facility] ([place]) (0000 0) Comment: Performed By: #### CBC, ADIF F, ANEU #### [place] [address] #### CMP, GFR #### [address] [address] MCHC (RBC) [Mass/Vol] 33.1 31.8-35.4 G/dL Normal 05-16-20 [facility] ([place]) (0000 0) Comment: Performed By: #### CBC, ADIF F, ANEU #### [place] [address] #### CMP, GFR #### [address] [address] MCV (RBC) [Entitic vol] 97.3 80.0-94.0 fL High 2019 [facility] ([place]) (0000 0) Comment: Performed By: #### CBC, ADIF F, ANEU #### [place] [address] #### CMP, GFR #### [address] [address] Platelet mean volume 8.2 7.4-10.4 fL Normal 0 [facility] (Bld) [Entitic vol] ([place]) (86[address]) Comment: Performed By: #### CBC, ADIF F, ANEU #### [address] [address] #### CMP, GFR #### [address] [address] Platelets (Bld) [#/Vol] 93 130-400 10 3/mcL Low 2019 [facility] ([place]) (0000 0) Comment: Performed By: #### CBC, ADIF F, ANEU #### [place] [address] #### CMP, GFR #### [address] [address] RBC (Bld) [#/Vol] 2.54 4.04-6.13 10 6/mcL Low 05-16-2020 [facility] ([place]) (0000 0) Comment: Performed By: #### CBC, ADIF F, ANEU #### [place] [address] #### CMP, GFR #### [address] [address] WBC (Bld) [#/Vol] 5.90 4.60-10.80 10 3/mcL Normal 05-16-2020 [facility] ([place]) (14727) Comment: Performed By: #### CBC, ADIF F, ANEU #### [address] [address] #### CMP, GFR #### [address] [address] bmp on 2020-05-16 Calcium [Mass/Vol] 7.8 8.4-10.2 mg/dL Low 05-16-2020 [facility] ([place]) (21692) Comment: Performed By: #### CBC, ADIF F, ANEU #### [place] [address] #### CMP, GFR #### [address] [address] Chloride [Moles/Vol] 105 98-107 mmol/L Normal 0 [facility] ([place]) (0000 0) Comment: Performed By: #### CBC, ADIF F, ANEU #### [address] [address] #### CMP, GFR #### [address] [address] CO2 [Moles/Vol] 24 23-31 mmol/L Normal 05-16-2020 Pending [facility] to [facility] ([place]) (57818) Comment: Performed By: #### CBC, ADIF F, ANEU #### [place] [address] #### CMP, GFR #### [address] [address] Creatinine [Mass/Vol] 1.00 0.70-1.30 mg/dL Normal 05-16-20 20 [facility] ([place]) (08320) Comment: Performed By: #### CBC, ADIF F, ANEU #### [place] [address] #### CMP, GFR #### [address] [address] Electrolyte Balance 10.0 mEq/L Normal 05-16-2020 [facility] ([place]) (89249) Comment: Performed By: #### CBC, ADIF F, ANEU #### [address] [address] #### CMP, GFR #### [address] [address] Glucose [Mass/Vol] 142 80-115 mg/dL High 05-16-2020 [facility] ([place]) (52292) Comment: Performed By: #### CBC, ADIF F, ANEU #### [address] [address] #### CMP, GFR #### [address] [address] Potassium [Moles/Vol] 3.6 3.5-5.1 mmol/L Normal 05-16-20 [facility] ([place]) (0000 0) Comment: Performed By: #### CBC, ADIF F, ANEU #### [address] [address] #### CMP, GFR #### [address] [address] Sodium [Moles/Vol] 139 136-145 mmol/L Normal 05-16-2020 [facility] ([place]) (0000 0) Comment: Performed By: #### CBC, ADIF F, ANEU #### [place] [address] #### CMP, GFR #### [address] [address] Urea nitrogen [Mass/Vol] 12 7-18 mg/dL Normal 05-16 [facility] ([place]) (0000 0) Comment: Performed By: #### CBC, ADIF F, ANEU #### [address] [address] #### CMP, GFR #### [address] [address] Urea nitrogen/Creatinine [Mass 12 7-27 ratio Normal 05-16-2020 [facility]] [facility] [place] ([place]) ([address]) Comment: Performed By: #### CBC, ADIF F, ANEU #### [place] [address] #### CMP, GFR #### [address] [address] .neuabs on Neutrophils (Bld) 4.00 2.85-6.16 10 3/mcL Normal 05-16-2020 [facility] [#/Vol] [facility] [place] ([place]) ([address]) Comment: Performed By: #### ANEU, KETTY FF, CBC, GFR, MG, BMP ####[address] [address] Performed By: #### BMP, MG, GFR, CBC, ADIFF, ANEU ####[place] [address] [place], [place] [address] .gfr on 2020-05-16 GFR 92 ml/min/1.73sqm Normal [facility] ([place]) (0000 0) Comment: Result Comment: GFR Population mean for Afri can Nigerian, Non- Americans Ages 20-29 = 116 mL/min/1.73 sq.m. Ages 30-39 = 107 mL/min/1.73 sq.m. Ages 40-49 = 99 mL/min/1.73 sq.m. Ages 50-59 = 93 mL/min/1.73 sq.m. Ages 60-69 = 85 mL/min/1.73 sq.m. Ages 70+ = 75 mL/min/1.73 sq .m. Chronic Kidney Disease: Less than 60 mL/min/1.73 square meters End Stage Renal Disease: Les s than 15 mL/min/1.73 square meters Performed By: #### CBC, ADIF F, ANEU #### [place] [address] [address] #### CMP, GFR #### [place] [address] GFR Non- 76 ml/min/1.73sqm Normal 05-16-2020 [facility] ([place]) (39324) Comment: Result Comment: GFR Population mean for Afri can Nigerian, Non- Americans Ages 20-29 = 116 mL/min/1.73 sq.m. Ages 30-39 = 107 mL/min/1.73 sq.m. Ages 40-49 = 99 mL/min/1.73 sq.m. Ages 50-59 = 93 mL/min/1.73 sq.m. Ages 60-69 = 85 mL/min/1.73 sq.m. Ages 70+ = 75 mL/min/1.73 sq .m. Chronic Kidney Disease: Less than 60 mL/min/1.73 square meters End Stage Renal Disease: Les s than 15 mL/min/1.73 square meters Performed By: #### CBC, ADIF F, ANEU #### [place] [address] [address] #### CMP, GFR #### [address] [address] .auto diff on 05-16 Ammonia (P) [Mass/Vol] 0.80 0.15-1.00 10 3/mcL Normal -- 020 [facility] ([place]) (05807) Comment: Performed By: #### CBC, ADIF F, ANEU #### [place] [address] #### CMP, GFR #### [address] [address] Basophils (Bld) 0.00 0.00-0.19 10 3/[facility] Normal 05-16-2020 [facility] [#/Vol] [facility] [place] ([place]) ([address]) Comment: Performed By: #### CBC, ADIF F, ANEU #### [place] [address] #### CMP, GFR #### [place] [address] Basophils/100 WBC (Bld) 0.6 0.0-2.5 % Normal 2019 [facility] ([place]) (0000 0) Comment: Performed By: #### CBC, ADIF F, ANEU #### [place] [address] #### CMP, GFR #### [address] [address] Eosinophils (Bld) 0.10 0.00-0.40 10 3/[facility] Normal 05-16-2020 [facility] [#/Vol] [facility] [place] ([place]) ([address]55) Comment: Performed By: #### CBC, ADIF F, ANEU #### [place] [address] #### CMP, GFR #### [address] [address] Eosinophils/100 WBC (Bld) 1.1 0.0-7.0 % Normal 09-0 [facility] ([place]) (0000 0) Comment: Performed By: #### CBC, ADIF F, ANEU #### [address] [address] #### CMP, GFR #### [address] [address] Lymphocytes (Bld) 0.90 0.77-3.85 10 3/mcL Normal 05-16-2020 [facility] [#/Vol] [facility] [place] ([place]) (03175) Comment: Performed By: #### CBC, ADIF F, ANEU #### [address] [address] #### CMP, GFR #### [address] [address] Lymphocytes/100 WBC (Bld) 15.9 10.0-50.0 % Normal [facility] ([place]) (30385) Comment: Performed By: #### CBC, ADIF F, ANEU #### [address] [address] #### CMP, GFR #### [address] [address] Monocytes/100 WBC (Bld) 14.0 1.7-13.0 % High 2019 [facility] ([place]) (0000 0) Comment: Performed By: #### CBC, ADIF F, ANEU #### [address] [address] #### CMP, GFR #### [address] [address] Neutrophils/100 WBC (Bld) 68.4 37.0-80.0 % Normal [facility] ([place]) (67765) Comment: Performed By: #### CBC, ADIF F, ANEU #### [address] [address] #### CMP, GFR #### [address] [address] ferr on 2020-05-05 Ferritin [Mass/Vol] 110.1 26.0-388.0 ng/mL Normal 05-05- 0 [facility] ([place]) (26764) Comment: Performed By: #### CBC, ADIF F, ANEU #### [address] [address] #### CMP, GFR #### [address] [address] fe on 2020-05-05 Iron [Mass/Vol] 205 65-175 mcg/dL High 05-05-2020 P[facility] to [facility] ([place]) (52347) Comment: Performed By: #### CBC, ADIF F, ANEU #### [address] [address] #### CMP, GFR #### [address] [address] mg on 2020-05-02 Magnesium [Mass/Vol] 1.9 1.8-2.4 mg/dL Normal 0 [facility] ([place]) (0000 0) Comment: Performed By: #### CBC, ADIF F, ANEU #### [place] [address] #### CMP, GFR #### [address] [address] cbc on 2020-05-02 Erythrocyte distribution 20.7 11.5-14.5 % High 05-02 [facility] width (RBC) [Ratio] ([place]) (53275) Comment: Performed By: #### CBC, ADIF F, ANEU #### [place] [address] #### CMP, GFR #### [address] [address] Hematocrit (Bld) [Volume 25.3 42.0-52.0 % Low 05-02 [facility] fraction] ([place]) (0000 0) Comment: Performed By: #### CBC, ADIF F, ANEU #### [address] [address] #### CMP, GFR #### [address] [address] Hemoglobin (Bld) 8.4 14.0-18.0 G/dL Low 05-02-2020 [facility] [Mass/Vol] ([place]) (000 00) Comment: Performed By: #### CBC, ADIF F, ANEU #### [place] [address] #### CMP, GFR #### [address] [address] MCH (RBC) [Entitic mass] 32.8 27.0-31.2 pg High 05-02 [facility] ([place]) (0000 0) Comment: Performed By: #### CBC, ADIF F, ANEU #### [place] [address] #### CMP, GFR #### [address] [address] MCHC (RBC) [Mass/Vol] 33.3 31.8-35.4 G/dL Normal 05-02-20 20 [facility] ([place]) (0000 0) Comment: Performed By: #### CBC, ADIF F, ANEU #### [place] [address] #### CMP, GFR #### [address] [address] MCV (RBC) [Entitic vol] 98.6 80.0-94.0 fL High 2019 [facility] ([place]) (0000 0) Comment: Performed By: #### CBC, ADIF F, ANEU #### [place] [address] #### CMP, GFR #### [address] [address] Platelet mean volume 8.3 7.4-10.4 fL Normal 0 [facility] (Bld) [Entitic vol] ([place]) (38953) Comment: Performed By: #### CBC, ADIF F, ANEU #### [place] [address] #### CMP, GFR #### [address] [address] Platelets (Bld) [#/Vol] 71 130-400 10 3/mcL Low 2019 [facility] ([place]) (0000 0) Comment: Performed By: #### CBC, ADIF F, ANEU #### [address] [address] #### CMP, GFR #### [address] [address] RBC (Bld) [#/Vol] 2.57 4.04-6.13 10 6/mcL Low 05-02-2020 [facility] ([place]) (0000 0) Comment: Performed By: #### CBC, ADIF F, ANEU #### [place] [address] #### CMP, GFR #### [address] [address] WBC (Bld) [#/Vol] 4.20 4.60-10.80 10 3/mcL Low 05-02-2020 [facility] ([place]) (0000 0) Comment: Performed By: #### CBC, ADIF F, ANEU #### [address] [address] #### CMP, GFR #### [address] [address] bmp on 2020-05-02 Calcium [Mass/Vol] 8.0 8.4-10.2 mg/dL Low 05-02-2020 [facility] ([place]) (73338) Comment: Performed By: #### CBC, ADIF F, ANEU #### [address] [address] #### CMP, GFR #### [place] [id number] Chloride [Moles/Vol] 106 98-107 mmol/L Normal 0 [facility] ([place]) (0000 0) Comment: Performed By: #### CBC, ADIF F, ANEU #### [place] [id number] #### CMP, GFR #### [address] [address] CO2 [Moles/Vol] 23 23-31 mmol/L Normal 05-02-2020 Pending [facility] to [facility] ([place]) (70156) Comment: Performed By: #### CBC, ADIF F, ANEU #### [address] [address] #### CMP, GFR #### [address] [address] Creatinine [Mass/Vol] 1.03 0.70-1.30 mg/dL Normal 05-02-20 [facility] ([place]) (61431) Comment: Performed By: #### CBC, ADIF F, ANEU #### [address] [address] #### CMP, GFR #### [address] [address] Electrolyte Balance 9.0 mEq/L Normal 05-02-2020 [facility] ([place]) (64438) Comment: Performed By: #### CBC, ADIF F, ANEU #### [address] [address] #### CMP, GFR #### [address] [address] Glucose [Mass/Vol] 191 80-115 mg/dL High 05-02-2020 [facility] ([place]) (13871) Comment: Performed By: #### CBC, ADIF F, ANEU #### [address] [address] #### CMP, GFR #### [address] [address] Potassium [Moles/Vol] 4.1 3.5-5.1 mmol/L Normal 05-02-20 [facility] ([place]) (0000 0) Comment: Performed By: #### CBC, ADIF F, ANEU #### [address] [address] #### CMP, GFR #### [address] [address] Sodium [Moles/Vol] 138 136-145 mmol/L Normal 05-02-2020 [facility] ([place]) (0000 0) Comment: Performed By: #### CBC, ADIF F, ANEU #### [address] [address] #### CMP, GFR #### [facility] [address] [place] [address] Urea nitrogen [Mass/Vol] 12 7-18 mg/dL Normal 05-02 [facility] ([place]) (0000 0) Comment: Performed By: #### CBC, ADIF F, ANEU #### [address] [address] #### CMP, GFR #### [address] [address] Urea nitrogen/Creatinine [Mass 12 7-27 ratio Normal 05-02-2020 [facility]] [facility] ([place]) (44402) Comment: Performed By: #### CBC, ADIF F, ANEU #### [address] [address] #### CMP, GFR #### [address] [address] .neuabs on Neutrophils (Bld) 2.60 2.85-6.16 10 3/mcL Low 05-02-2020 [facility] [#/Vol] [facility] ([place]) (41456) Comment: Performed By: #### CBC, ADIF F, ANEU #### [place] [id number] #### CMP, GFR #### [address] [address] .gfr on 2020-05-02 GFR 89 ml/min/1.73sqm Normal 04-13 [facility] ([place]) (0000 0) Comment: Result Comment: GFR Population mean for Afri can Nigerian, Non- Americans Ages 20-29 = 116 mL/min/1.73 sq.m. Ages 30-39 = 107 mL/min/1.73 sq.m. Ages 40-49 = 99 mL/min/1.73 sq.m. Ages 50-59 = 93 mL/min/1.73 sq.m. Ages 60-69 = 85 mL/min/1.73 sq.m. Ages 70+ = 75 mL/min/1.73 sq .m. Chronic Kidney Disease: Less than 60 mL/min/1.73 square meters End Stage Renal Disease: Les s than 15 mL/min/1.73 square meters Performed By: #### CBC, ADIF F, ANEU #### [address] [address] #### CMP, GFR #### [place] [address] [place] [address] GFR Non- 73 ml/min/1.73sqm Normal 05-02-2020 [facility] ([place]) (88759) Comment: Result Comment: GFR Population mean for Afri can Nigerian, Non- Americans Ages 20-29 = 116 mL/min/1.73 sq.m. Ages 30-39 = 107 mL/min/1.73 sq.m. Ages 40-49 = 99 mL/min/1.73 sq.m. Ages 50-59 = 93 mL/min/1.73 sq.m. Ages 60-69 = 85 mL/min/1.73 sq.m. Ages 70+ = 75 mL/min/1.73 sq .m. Chronic Kidney Disease: Less than 60 mL/min/1.73 square meters End Stage Renal Disease: Les s than 15 mL/min/1.73 square meters Performed By: #### CBC, ADIF F, ANEU #### [address] [address] #### CMP, GFR #### [address] [address] .auto diff on 05-02 Ammonia (P) [Mass/Vol] 0.70 0.15-1.00 10 3/mcL Normal 020 [facility] ([place]) (48032) Comment: Performed By: #### CBC, ADIF F, ANEU #### [address] [address] #### CMP, GFR #### [address] [address] Basophils (Bld) 0.00 0.00-0.19 10 3/mcL Normal 05-02-2020 [facility] [#/Vol] [facility] ([place]) (23876) Comment: Performed By: #### CBC, ADIF F, ANEU #### [address] [address] #### CMP, GFR #### [address] [address] Basophils/100 WBC (Bld) 0.7 0.0-2.5 % Normal 2019 [facility] ([place]) (0000 0) Comment: Performed By: #### CBC, ADIF F, ANEU #### [place] [address] #### CMP, GFR #### [address] [address] Eosinophils (Bld) 0.00 0.00-0.40 10 3/mcL Normal 05-02-2020 [facility] [#/Vol] [facility] ([place]) (33036) Comment: Performed By: #### CBC, ADIF F, ANEU #### [place] [address] #### CMP, GFR #### [address] [address] Eosinophils/100 WBC (Bld) 1.0 0.0-7.0 % Normal - [facility] ([place]) (0000 0) Comment: Performed By: #### CBC, ADIF F, ANEU #### [place] [address] #### CMP, GFR #### [address] [address] Lymphocytes (Bld) 0.80 0.77-3.85 10 3/mcL Normal 05-02-2020 [facility] [#/Vol] [facility] ([place]) (83515) Comment: Performed By: #### CBC, ADIF F, ANEU #### [address] [address] #### CMP, GFR #### [address] [address] Lymphocytes/100 WBC (Bld) 19.2 10.0-50.0 % Normal 08- [facility] ([place]) (38177) Comment: Performed By: #### CBC, ADIF F, ANEU #### [address] [address] #### CMP, GFR #### [address] [address] Monocytes/100 WBC (Bld) 16.7 1.7-13.0 % High 2019 [facility] ([place]) (0000 0) Comment: Performed By: #### CBC, ADIF F, ANEU #### [address] [address] #### CMP, GFR #### [address] [address] Neutrophils/100 WBC (Bld) 62.4 37.0-80.0 % Normal - [facility] ([place]) (19304) Comment: Performed By: #### CBC, ADIF F, ANEU #### [address] [address] #### CMP, GFR #### [address] [address] cnpn on 2020-04-30 CNPN Telephone (TXCTMN) Normal 04-30-2020 [place] BECKY Escalante ([id number]) 1955 M [place] Date Time Provider Department (77145) 04/30/20 LIVER TXP COORDINATOR TXCTMOHINI During your visit today, we recorded the following informati on about you: Chery Villasenor 04/30/2020 1:50 PM Signed Liver Transplant Referral Becky Hutchison [phone] email address: [email or web address] Diagnosis: DIXON Date of diagnosis: 12/2017 MELD Na: 12 How long does it take you to drive to [facility]? 1 1/2hours Who will accompany you to your transplant evaluation? [facility] Please be aware that during the COVID- pandemic, there are restricted ambulatory visitation rules. It may not be possible to have someone with you for your appointments. Referring MD: Dr. Falguni Izquierdo MD: Same PCP: Dr. Valdivia Have you ever been evaluated for liver transplant? No Do you have a potential living donor? Not sure A nurse will call for medical intake, who should she call and at what phone number? [phone] Please be aware that the call will come from a restricted ph one number for intake. Chery Villasenor 04/30/2020 1:50 PM Signed Original referral came to us 04-22-2020 Wasn't able to leave message at home and mailbox was too ful l. Patient contacted our office today to begin the referral pro cess. Allergies As of Date: 04/30/2020 (Not on File) Date Reviewed: Never Reviewed Reason for Visit: Referral - Liver Txp [[id number]] Primary Visit Diagnosis:Nonalcoholic steatohepatitis [K75.81 ] Order(s):CONSULT TO TRANSPLANT CENTER [[id number]] Order #: [id number]: 1 Problem List As Of Date: 04/30/2020 (None) Encounter Status:Closed by CHERY JOHNSON on 04/30/20 mg on 2020-04-21 Magnesium [Mass/Vol] 1.9 1.8-2.4 mg/dL Normal 0 [facility] ([place]) (0000 0) Comment: Performed By: #### CBC, ADIF F, ANEU #### [id number] [place], [place] [address] #### CMP, GFR #### [address] [address] cbc on 2020-04-21 Erythrocyte distribution 20.8 11.5-14.5 % High 04-21 [facility] width (RBC) [Ratio] ([place]) (58651) Comment: Performed By: #### CBC, ADIF F, ANEU #### [address] [address] #### CMP, GFR #### [address] [address] Hematocrit (Bld) [Volume 25.4 42.0-52.0 % Low 04-21 [facility] fraction] ([place]) (0000 0) Comment: Performed By: #### CBC, ADIF F, ANEU #### [place] [address] #### CMP, GFR #### [address] [address] Hemoglobin (Bld) 8.6 14.0-18.0 G/dL Low 04-21-2020 [facility] [Mass/Vol] ([place]) (000 00) Comment: Performed By: #### CBC, ADIF F, ANEU #### [place] [address] #### CMP, GFR #### [address] [address] MCH (RBC) [Entitic mass] 33.5 27.0-31.2 pg High 04-21 [facility] ([place]) (0000 0) Comment: Performed By: #### CBC, ADIF F, ANEU #### [place] [address] #### CMP, GFR #### [address] [address] MCHC (RBC) [Mass/Vol] 33.9 31.8-35.4 G/dL Normal 04-21-20 [facility] ([place]) (0000 0) Comment: Performed By: #### CBC, ADIF F, ANEU #### [place] [address] #### CMP, GFR #### [address] [address] MCV (RBC) [Entitic vol] 99.0 80.0-94.0 fL High 2019 [facility] ([place]) (0000 0) Comment: Performed By: #### CBC, ADIF F, ANEU #### [address] [address] #### CMP, GFR #### [address] [address] Platelet mean volume 8.4 7.4-10.4 fL Normal 0 [facility] (Bld) [Entitic vol] ([place]) (42118) Comment: Performed By: #### CBC, ADIF F, ANEU #### [place] [address] #### CMP, GFR #### [address] [address] Platelets (Bld) [#/Vol] 66 130-400 10 3/mcL Low 2019 [facility] ([place]) (0000 0) Comment: Performed By: #### CBC, ADIF F, ANEU #### [place] [address] #### CMP, GFR #### [address] [address] RBC (Bld) [#/Vol] 2.57 4.04-6.13 10 6/mcL Low 04-21-2020 [facility] ([place]) (0000 0) Comment: Performed By: #### CBC, ADIF F, ANEU #### [place] [address] #### CMP, GFR #### [address] [address] WBC (Bld) [#/Vol] 4.80 4.60-10.80 10 3/mcL Normal 04-21-2020 [facility] ([place]) (30782) Comment: Performed By: #### CBC, ADIF F, ANEU #### [place] [address] #### CMP, GFR #### [address] [address] bmp on 2020-04-21 Calcium [Mass/Vol] 8.2 8.4-10.2 mg/dL Low 04-21-2020 [facility] ([place]) (76411) Comment: Performed By: #### CBC, ADIF F, ANEU #### [address] [address] #### CMP, GFR #### [address] [address] Chloride [Moles/Vol] 106 98-107 mmol/L Normal 0 [facility] ([place]) (0000 0) Comment: Performed By: #### CBC, ADIF F, ANEU #### [address] [address] #### CMP, GFR #### [address] [address] CO2 [Moles/Vol] 26 23-31 mmol/L Normal 04-21-2020 Pending [facility] to [facility] ([place]) (30733) Comment: Performed By: #### CBC, ADIF F, ANEU #### [address] [address] #### CMP, GFR #### [address] [address] Creatinine [Mass/Vol] 0.94 0.70-1.30 mg/dL Normal 04-21-20 20 [facility] ([place]) (11338) Comment: Performed By: #### CBC, ADIF F, ANEU #### [address] [address] #### CMP, GFR #### [address] [address] Electrolyte Balance 7.0 mEq/L Normal 04-21-2020 [facility] ([place]) (21169) Comment: Performed By: #### CBC, ADIF F, ANEU #### [address] [address] #### CMP, GFR #### [address] [address] Glucose [Mass/Vol] 221 80-115 mg/dL High 04-21-2020 [facility] ([place]) (70007) Comment: Performed By: #### CBC, ADIF F, ANEU #### [address] [address] #### CMP, GFR #### [address] [address] Potassium [Moles/Vol] 3.6 3.5-5.1 mmol/L Normal 04-21-20 [facility] ([place]) (0000 0) Comment: Performed By: #### CBC, ADIF F, ANEU #### [address] [address] #### CMP, GFR #### [address] [address] Sodium [Moles/Vol] 139 136-145 mmol/L Normal 04-21-2020 [facility] ([place]) (0000 0) Comment: Performed By: #### CBC, ADIF F, ANEU #### [address] [address] #### CMP, GFR #### [address] [address] Urea nitrogen [Mass/Vol] 15 7-18 mg/dL Normal 04-21 [facility] ([place]) (0000 0) Comment: Performed By: #### CBC, ADIF F, ANEU #### [address] [address] #### CMP, GFR #### [address] [address] Urea nitrogen/Creatinine [Mass 16 7-27 ratio Normal 04-21-2020 [facility]] [facility] [place] ([place]) ([address]563) Comment: Performed By: #### CBC, ADIF F, ANEU #### [address] [address] #### CMP, GFR #### [address] [address] .neuabs on Neutrophils (Bld) 3.20 2.85-6.16 10 3/mcL Normal 04-21-2020 [facility] [#/Vol] [facility] [place] ([place]) (07668) Comment: Performed By: #### CBC, ADIF F, ANEU #### [place] [address] [place], [place] [address] #### CMP, GFR #### [facility] [address] [place] [address] .morph on 2020-04-12 0 Platelets (Bld) [#/Vol] Decreased Normal 2019 [facility] ([place]) (0000 0) Comment: Performed By: #### CBC, ADIF F, ANEU #### [address] [address] #### CMP, GFR #### [facility] [address] [place] [address] .gfr on 2020-04-21 GFR Non- 81 ml/min/1.73sqm Normal 04-21-2020 [facility] ([place]) (38967) Comment: Result Comment: GFR Population mean for Afri can Nigerian, Non- Americans Ages 20-29 = 116 mL/min/1.73 sq.m. Ages 30-39 = 107 mL/min/1.73 sq.m. Ages 40-49 = 99 mL/min/1.73 sq.m. Ages 50-59 = 93 mL/min/1.73 sq.m. Ages 60-69 = 85 mL/min/1.73 sq.m. Ages 70+ = 75 mL/min/1.73 sq .m. Chronic Kidney Disease: Less than 60 mL/min/1.73 square meters End Stage Renal Disease: Les s than 15 mL/min/1.73 square meters Performed By: #### CBC, ADIF F, ANEU #### [place] [address] [place], [place] [address] #### CMP, GFR #### [facility] [address] [place] [address] GFR 99 ml/min/1.73sqm Normal 04-12 [facility] ([place]) (0000 0) Comment: Result Comment: GFR Population mean for Afri can Nigerian, Non- Americans Ages 20-29 = 116 mL/min/1.73 sq.m. Ages 30-39 = 107 mL/min/1.73 sq.m. Ages 40-49 = 99 mL/min/1.73 sq.m. Ages 50-59 = 93 mL/min/1.73 sq.m. Ages 60-69 = 85 mL/min/1.73 sq.m. Ages 70+ = 75 mL/min/1.73 sq .m. Chronic Kidney Disease: Less than 60 mL/min/1.73 square meters End Stage Renal Disease: Les s than 15 mL/min/1.73 square meters Performed By: #### CBC, ADIF F, ANEU #### [place] [address] #### CMP, GFR #### [address] [address] .auto diff on 04-21 Ammonia (P) [Mass/Vol] 0.60 0.15-1.00 10 3/mcL Normal 020 [facility] ([place]) (28724) Comment: Performed By: #### CBC, ADIF F, ANEU #### [address] [address] #### CMP, GFR #### [address] [address] Basophils (Bld) 0.00 0.00-0.19 10 3/mcL Normal 04-21-2020 [facility] [#/Vol] [facility] [place] ([place]) (78181) Comment: Performed By: #### CBC, ADIF F, ANEU #### [address] [address] #### CMP, GFR #### [address] [address] Basophils/100 WBC (Bld) 0.6 0.0-2.5 % Normal 2019 [facility] ([place]) (0000 0) Comment: Performed By: #### CBC, ADIF F, ANEU #### [address] [address] #### CMP, GFR #### [address] [address] Eosinophils (Bld) 0.10 0.00-0.40 10 3/mcL Normal 04-21-2020 [facility] [#/Vol] [facility] [place] ([place]) (94921) Comment: Performed By: #### CBC, ADIF F, ANEU #### [address] [address] #### CMP, GFR #### [address] [address] Eosinophils/100 WBC (Bld) 1.8 0.0-7.0 % Normal 04-12 [facility] ([place]) (0000 0) Comment: Performed By: #### CBC, ADIF F, ANEU #### [address] [address] #### CMP, GFR #### [address] [address] Lymphocytes (Bld) 0.80 0.77-3.85 10 3/mcL Normal 04-21-2020 [facility] [#/Vol] [facility] [place] ([place]) (40834) Comment: Performed By: #### CBC, ADIF F, ANEU #### [address] [address] #### CMP, GFR #### [address] [address] Lymphocytes/100 WBC (Bld) 17.8 10.0-50.0 % Normal 04-12 [facility] ([place]) (37859) Comment: Performed By: #### CBC, ADIF F, ANEU #### [address] [address] #### CMP, GFR #### [address] [address] Monocytes/100 WBC (Bld) 12.7 1.7-13.0 % Normal 2019 [facility] ([place]) (0000 0) Comment: Performed By: #### CBC, ADIF F, ANEU #### [place] [address] #### CMP, GFR #### [address] [address] Neutrophils/100 WBC (Bld) 67.1 37.0-80.0 % Normal 04-12 [facility] ([place]) (45092) Comment: Performed By: #### CBC, ADIF F, ANEU #### [place] [address] #### CMP, GFR #### [address] [address] cbc on 2020-04-10 Erythrocyte distribution 21.5 11.5-14.5 % High 04-10 [facility] width (RBC) [Ratio] ([place]) (65641) Comment: Performed By: #### CBC, ADIF F, ANEU #### [place] [address] #### CMP, GFR #### [address] [address] Hematocrit (Bld) [Volume 27.6 42.0-52.0 % Low 04-10 [facility] fraction] ([place]) (0000 0) Comment: Performed By: #### CBC, ADIF F, ANEU #### [place] [address] #### CMP, GFR #### [address] [address] Hemoglobin (Bld) 9.5 14.0-18.0 G/dL Low 04-10-2020 [facility] [Mass/Vol] ([place]) (000 00) Comment: Performed By: #### CBC, ADIF F, ANEU #### [place] [address] #### CMP, GFR #### [address] [address] MCH (RBC) [Entitic mass] 33.9 27.0-31.2 pg High 04-10 [facility] ([place]) (0000 0) Comment: Performed By: #### CBC, ADIF F, ANEU #### [address] [address] #### CMP, GFR #### [address] [address] MCHC (RBC) [Mass/Vol] 34.4 31.8-35.4 G/dL Normal 04-10-20 20 [facility] ([place]) (0000 0) Comment: Performed By: #### CBC, ADIF F, ANEU #### [place] [address] #### CMP, GFR #### [address] [address] MCV (RBC) [Entitic vol] 98.5 80.0-94.0 fL High 2019 [facility] ([place]) (0000 0) Comment: Performed By: #### CBC, ADIF F, ANEU #### [place] [address] #### CMP, GFR #### [address] [address] Platelet mean volume 8.2 7.4-10.4 fL Normal 0 [facility] (d) [Entitic vol] ([place]) (20620) Comment: Performed By: #### CBC, ADIF F, ANEU #### [place] [address] #### CMP, GFR #### [address] [address] Platelets (Bld) [#/Vol] 72 130-400 10 3/mcL Low 2019 [facility] ([place]) (0000 0) Comment: Performed By: #### CBC, ADIF F, ANEU #### [place] [address] #### CMP, GFR #### [address] [address] RBC (Bld) [#/Vol] 2.80 4.04-6.13 10 6/mcL Low 04-10-2020 [facility] ([place]) (0000 0) Comment: Performed By: #### CBC, ADIF F, ANEU #### [address] [address] #### CMP, GFR #### [address] [address] WBC (Bld) [#/Vol] 5.40 4.60-10.80 10 3/mcL Normal 04-10-2020 [facility] ([place]) (33277) Comment: Performed By: #### CBC, ADIF F, ANEU #### [address] [address] #### CMP, GFR #### [address] [address] bmp on 2020-04-10 Calcium [Mass/Vol] 7.8 8.4-10.2 mg/dL Low 04-10-2020 [facility]) (43974) Comment: Performed By: #### CBC, ADIF F, ANEU #### [place] [address] #### CMP, GFR #### [address] [address] Chloride [Moles/Vol] 105 98-107 mmol/L Normal 0 [facility] ([place]) (0000 0) Comment: Performed By: #### CBC, ADIF F, ANEU #### [address] [address] #### CMP, GFR #### [address] [address] CO2 [Moles/Vol] 26 23-31 mmol/L Normal 04-10-2020 Pending [facility] to [facility] ([place]) (80895) Comment: Performed By: #### CBC, ADIF F, ANEU #### [address] [address] #### CMP, GFR #### [address] [address] Creatinine [Mass/Vol] 0.97 0.70-1.30 mg/dL Normal 04-10-20 20 [facility]) (28511) Comment: Performed By: #### CBC, ADIF F, ANEU #### [address] [address] #### CMP, GFR #### [address] [address] Electrolyte Balance 8.0 mEq/L Normal 04-10-2020 [facility] ([place]) (08964) Comment: Performed By: #### CBC, ADIF F, ANEU #### [address] [address] #### CMP, GFR #### [address] [address] Glucose [Mass/Vol] 157 80-115 mg/dL High 04-10-2020 [facility] ([place]) (35979) Comment: Performed By: #### CBC, ADIF F, ANEU #### [place] [address] #### CMP, GFR #### [address] [address] Potassium [Moles/Vol] 4.0 3.5-5.1 mmol/L Normal 04-10-20 [facility] ([place]) (0000 0) Comment: Performed By: #### CBC, ADIF F, ANEU #### [address] [address] #### CMP, GFR #### [address] [address] Sodium [Moles/Vol] 139 136-145 mmol/L Normal 04-10-2020 [facility] ([place]) (0000 0) Comment: Performed By: #### CBC, ADIF F, ANEU #### [address] [address] #### CMP, GFR #### [address] [address] Urea nitrogen [Mass/Vol] 12 7-18 mg/dL Normal 04-10 [facility] ([place]) (0000 0) Comment: Performed By: #### CBC, ADIF F, ANEU #### [address] [address] #### CMP, GFR #### [address] [address] Urea nitrogen/Creatinine [Mass 12 7-27 ratio Normal 04-10-2020 [facility] ratio] [facility] [place] ([place]) (05738) Comment: Performed By: #### CBC, ADIF F, ANEU #### [place] [address] #### CMP, GFR #### [address] [address] .neuabs on Neutrophils (Bld) 3.30 2.85-6.16 10 3/mcL Normal 04-10-2020 [facility] [#/Vol] [facility] ([place]) (97904) Comment: Performed By: #### CBC, ADIF F, ANEU #### [place] [address] #### CMP, GFR #### [place] [address] .morph on 2020-03-14 0 Anisocytosis Ql (Bld) Slight Normal 04-10-20 [facility] ([place]) (87331) Comment: Performed By: #### CBC, ADIF F, ANEU #### [place] [id number] #### CMP, GFR #### [place] [address] Basophilic stippling LM Ql Slight Normal [facility] (Bld) ([place]) (0000 0) Comment: Performed By: #### CBC, ADIF F, ANEU #### [place] [id number] #### CMP, GFR #### [address] [address] Platelets (Bld) [#/Vol] Decreased Normal 2019 [facility] ([place]) (0000 0) Comment: Performed By: #### CBC, ADIF F, ANEU #### [address] [address] #### CMP, GFR #### [address] [address] Polychrom Slight Normal 04-10-2020 [facility] ([place]) (16144) Comment: Performed By: #### CBC, ADIF F, ANEU #### [address] [address] #### CMP, GFR #### [address] [address] .gfr on 2020-04-10 GFR 95 ml/min/1.73sqm Normal 03-14 [facility] ([place]) (0000 0) Comment: Result Comment: GFR Population mean for Afri can Nigerian, Non- Americans Ages 20-29 = 116 mL/min/1.73 sq.m. Ages 30-39 = 107 mL/min/1.73 sq.m. Ages 40-49 = 99 mL/min/1.73 sq.m. Ages 50-59 = 93 mL/min/1.73 sq.m. Ages 60-69 = 85 mL/min/1.73 sq.m. Ages 70+ = 75 mL/min/1.73 sq .m. Chronic Kidney Disease: Less than 60 mL/min/1.73 square meters End Stage Renal Disease: Les s than 15 mL/min/1.73 square meters Performed By: #### CBC, ADIF F, ANEU #### [address] [address] #### CMP, GFR #### [address] [address] GFR Non- 78 ml/min/1.73sqm Normal 04-10-2020 [facility] ([place]) (87695) Comment: Result Comment: GFR Population mean for Afri can Nigerian, Non- Americans Ages 20-29 = 116 mL/min/1.73 sq.m. Ages 30-39 = 107 mL/min/1.73 sq.m. Ages 40-49 = 99 mL/min/1.73 sq.m. Ages 50-59 = 93 mL/min/1.73 sq.m. Ages 60-69 = 85 mL/min/1.73 sq.m. Ages 70+ = 75 mL/min/1.73 sq .m. Chronic Kidney Disease: Less than 60 mL/min/1.73 square meters End Stage Renal Disease: Les s than 15 mL/min/1.73 square meters Performed By: #### CBC, ADIF F, ANEU #### [address] [address] #### CMP, GFR #### [address] [address] .auto diff on 04-10 Ammonia (P) [Mass/Vol] 0.90 0.15-1.00 10 3/mcL Normal 04-10- 020 [facility] ([place]) (75542) Comment: Performed By: #### CBC, ADIF F, ANEU #### [place] [address] #### CMP, GFR #### [address] [address] Basophils (Bld) 0.00 0.00-0.19 10 3/mcL Normal 04-10-2020 [facility] [#/Vol] [facility] ([place]) (13090) Comment: Performed By: #### CBC, ADIF F, ANEU #### [address] [address] #### CMP, GFR #### [address] [address] Basophils/100 WBC (Bld) 0.9 0.0-2.5 % Normal 2019 [facility] ([place]) (0000 0) Comment: Performed By: #### CBC, ADIF F, ANEU #### [place] [address] #### CMP, GFR #### [address] [address] Eosinophils (Bld) 0.10 0.00-0.40 10 3/mcL Normal 04-10-2020 [facility] [#/Vol] [facility] ([place]) (87048) Comment: Performed By: #### CBC, ADIF F, ANEU #### [address] [address] #### CMP, GFR #### [address] [address] Eosinophils/100 WBC (Bld) 1.5 0.0-7.0 % Normal 03-14-2019 [facility] ([place]) (0000 0) Comment: Performed By: #### CBC, ADIF F, ANEU #### [place] [address] #### CMP, GFR #### [address] [address] Lymphocytes (Bld) 1.00 0.77-3.85 10 3/mcL Normal 04-10-2020 [facility] [#/Vol] [facility] ([place]) (80073) Comment: Performed By: #### CBC, ADIF F, ANEU #### [place] [address] #### CMP, GFR #### [address] [address] Lymphocytes/100 WBC (Bld) 19.4 10.0-50.0 % Normal 03-14 [facility] ([place]) (13810) Comment: Performed By: #### CBC, ADIF F, ANEU #### [place] [address] #### CMP, GFR #### [address] [address] Monocytes/100 WBC (Bld) 16.0 1.7-13.0 % High 2019 [facility] ([place]) (0000 0) Comment: Performed By: #### CBC, ADIF F, ANEU #### [place] [address] #### CMP, GFR #### [address] [address] Neutrophils/100 WBC (Bld) 62.2 37.0-80.0 % Normal 03-14 0 [facility] ([place]) (43483) Comment: Performed By: #### CBC, ADIF F, ANEU #### [address] [address] #### CMP, GFR #### [address] [address] mg on 2020-03-31 Magnesium [Mass/Vol] 1.9 1.8-2.4 mg/dL Normal 0 [facility] ([place]) (0000 0) Comment: Performed By: #### CBC, ADIF F, ANEU #### [place] [address] #### CMP, GFR #### [address] [address] cbc on 2020-03-31 Erythrocyte distribution 21.9 11.5-14.5 % High 03-31 [facility] width (RBC) [Ratio] ([place]) (48570) Comment: Performed By: #### CBC, ADIF F, ANEU #### [place] [address] #### CMP, GFR #### [address] [address] Hematocrit (Bld) [Volume 28.8 42.0-52.0 % Low 03-31 [facility] fraction] ([place]) (0000 0) Comment: Performed By: #### CBC, ADIF F, ANEU #### [place] [address] #### CMP, GFR #### [address] [address] Hemoglobin (Bld) 9.7 14.0-18.0 G/dL Low 03-31-2020 [facility] [Mass/Vol] ([place]) (000 00) Comment: Performed By: #### CBC, ADIF F, ANEU #### [place] [address] #### CMP, GFR #### [address] [address] MCH (RBC) [Entitic mass] 33.9 27.0-31.2 pg High 03-31 [facility] ([place]) (0000 0) Comment: Performed By: #### CBC, ADIF F, ANEU #### [address] [address] #### CMP, GFR #### [address] [address] MCHC (RBC) [Mass/Vol] 33.8 31.8-35.4 G/dL Normal 03-31-20 [facility] ([place]) (0000 0) Comment: Performed By: #### CBC, ADIF F, ANEU #### [place] [address] #### CMP, GFR #### [address] [address] MCV (RBC) [Entitic vol] 100.3 80.0-94.0 fL High 2019 [facility] ([place]) (0000 0) Comment: Performed By: #### CBC, ADIF F, ANEU #### [place] [address] #### CMP, GFR #### [address] [address] Platelet mean volume 8.4 7.4-10.4 fL Normal 0 [facility] (Bld) [Entitic vol] ([place]) (45854) Comment: Performed By: #### CBC, ADIF F, ANEU #### [place] [address] #### CMP, GFR #### [address] [address] Platelets (Bld) [#/Vol] 79 130-400 10 3/mcL Low 2019 [facility] ([place]) (0000 0) Comment: Performed By: #### CBC, ADIF F, ANEU #### [address] [address] #### CMP, GFR #### [place] [address] RBC (Bld) [#/Vol] 2.87 4.04-6.13 10 6/mcL Low 03-31-2020 [facility] ([place]) (0000 0) Comment: Performed By: #### CBC, ADIF F, ANEU #### [address] [address] #### CMP, GFR #### [address] [address] WBC (Bld) [#/Vol] 5.00 4.60-10.80 10 3/mcL Normal 03-31-2020 [facility] ([place]) (41834) Comment: Performed By: #### CBC, ADIF F, ANEU #### [place] [address] #### CMP, GFR #### [address] [address] bmp on 2020-03-31 Calcium [Mass/Vol] 8.2 8.4-10.2 mg/dL Low 03-31-2020 [facility] ([place]) (11205) Comment: Performed By: #### CBC, ADIF F, ANEU #### [place] [address] #### CMP, GFR #### [address] [address] Chloride [Moles/Vol] 105 98-107 mmol/L Normal 0 [facility] ([place]) (0000 0) Comment: Performed By: #### CBC, ADIF F, ANEU #### [place] [id number] #### CMP, GFR #### [address] [address] CO2 [Moles/Vol] 25 23-31 mmol/L Normal 03-31-2020 Pending [facility] to [facility] ([place]) (33497) Comment: Performed By: #### CBC, ADIF F, ANEU #### [address] [address] #### CMP, GFR #### [address] [address] Creatinine [Mass/Vol] 0.98 0.70-1.30 mg/dL Normal 03-31-20 [facility] ([place]) (19474) Comment: Performed By: #### CBC, ADIF F, ANEU #### [address] [address] #### CMP, GFR #### [address] [address] Electrolyte Balance 9.0 mEq/L Normal 03-31-2020 [facility] ([place]) (79911) Comment: Performed By: #### CBC, ADIF F, ANEU #### [address] [address] #### CMP, GFR #### [address] [address] Glucose [Mass/Vol] 164 80-115 mg/dL High 03-31-2020 [facility] ([place]) (41825) Comment: Performed By: #### CBC, ADIF F, ANEU #### [address] [address] #### CMP, GFR #### [address] [address] Potassium [Moles/Vol] 4.0 3.5-5.1 mmol/L Normal 03-31-20 [facility] ([place]) (0000 0) Comment: Performed By: #### CBC, ADIF F, ANEU #### [address] [address] #### CMP, GFR #### [address] [address] Sodium [Moles/Vol] 139 136-145 mmol/L Normal 03-31-2020 [facility] ([place]) (0000 0) Comment: Performed By: #### CBC, ADIF F, ANEU #### [address] [address] #### CMP, GFR #### [address] [address] Urea nitrogen [Mass/Vol] 12 7-18 mg/dL Normal 03-31 [facility] ([place]) (0000 0) Comment: Performed By: #### CBC, ADIF F, ANEU #### [place] [address] #### CMP, GFR #### [address] [address] Urea nitrogen/Creatinine [Mass 12 7-27 ratio Normal 03-31-2020 [facility]] [facility] [place]) (66915) Comment: Performed By: #### CBC, ADIF F, ANEU #### [place] [address] #### CMP, GFR #### [address] [address] .morph on 2020-03-13 0 Hypochrom Slight Normal 03-31-2020 [facility] ([place]) (05374) Comment: Performed By: #### CBC, ADIF F, ANEU #### [place] [address] #### CMP, GFR #### [address] [address] Platelets (Bld) [#/Vol] Decreased Normal 2019 [facility] ([place]) (0000 0) Comment: Performed By: #### CBC, ADIF F, ANEU #### [place] [address] #### CMP, GFR #### [address] [address] .manual diff on 0 Basophil %, Manual 0.0 0.0-2.5 % Normal 03-31-2020 [facility] ([place]) (78280) Comment: Performed By: #### CBC, ADIF F, ANEU #### [place] [address] #### CMP, GFR #### [address] [address] Basophil, Abs Manual 0.00 0.00-0.19 10 3/mcL Normal 0 [facility] ([place]) (92152) Comment: Performed By: #### CBC, ADIF F, ANEU #### [place] [address] #### CMP, GFR #### [address] [address] Eosinophil %, Manual 2.0 0.0-7.0 % Normal 0 [facility] ([place]) (49757) Comment: Performed By: #### CBC, ADIF F, ANEU #### [place] [address] #### CMP, GFR #### [address] [address] Eosinophil, Abs Manual 0.10 0.00-0.40 10 3/mcL Normal 020 [facility] ([place]) (89780) Comment: Performed By: #### CBC, ADIF F, ANEU #### [place] [address] #### CMP, GFR #### [address] [address] Lymphocyte %, Manual 21.0 10.0-50.0 % Normal 0 [facility] ([place]) (0000 0) Comment: Performed By: #### CBC, ADIF F, ANEU #### [place] [address] #### CMP, GFR #### [address] [address] Lymphocyte, Abs Manual 1.07 0.77-3.85 10 3/mcL Normal 020 [facility] ([place]) (42329) Comment: Performed By: #### CBC, ADIF F, ANEU #### [place] [address] #### CMP, GFR #### [address] [address] Monocyte %, Manual 14.0 1.7-13.0 % High 03-31-2020 [facility] ([place]) ([id number]) Comment: Performed By: #### CBC, ADIF F, ANEU #### [address] [address] #### CMP, GFR #### [address] [address] Monocyte, Abs Manual 0.71 0.15-1.00 10 3/mcL Normal 0 [facility] ([place]) ([id number]) Comment: Performed By: #### CBC, ADIF F, ANEU #### [address] [address] #### CMP, GFR #### [address] [address] Neutrophil %, Manual 63.0 37.0-80.0 % Normal 0 [facility] ([place]) (0000 0) Comment: Performed By: #### CBC, ADIF F, ANEU #### [address] [id number] #### CMP, GFR #### [address] [address] Neutrophil, Abs Manual 3.21 2.85-6.16 10 3/mcL Normal 020 [facility] ([place]) ([id number]) Comment: Performed By: #### CBC, ADIF F, ANEU #### [address] [address] #### CMP, GFR #### [address] [address] .gfr on 2020-03-31 GFR 94 ml/min/1.73sqm Normal 03-13 0-2019 [facility] ([place]) (0000 0) Comment: Result Comment: GFR Population mean for Afri can Nigerian, Non- Americans Ages 20-29 = 116 mL/min/1.73 sq.m. Ages 30-39 = 107 mL/min/1.73 sq.m. Ages 40-49 = 99 mL/min/1.73 sq.m. Ages 50-59 = 93 mL/min/1.73 sq.m. Ages 60-69 = 85 mL/min/1.73 sq.m. Ages 70+ = 75 mL/min/1.73 sq .m. Chronic Kidney Disease: Less than 60 mL/min/1.73 square meters End Stage Renal Disease: Les s than 15 mL/min/1.73 square meters Performed By: #### CBC, ADIF F, ANEU #### [address] [place], [place] [address] #### CMP, GFR #### [address] [address] GFR Non- 78 ml/min/1.73sqm Normal 03-31-2020 [facility] ([place]) ([id number]) Comment: Result Comment: GFR Population mean for Afri can Nigerian, Non- Americans Ages 20-29 = 116 mL/min/1.73 sq.m. Ages 30-39 = 107 mL/min/1.73 sq.m. Ages 40-49 = 99 mL/min/1.73 sq.m. Ages 50-59 = 93 mL/min/1.73 sq.m. Ages 60-69 = 85 mL/min/1.73 sq.m. Ages 70+ = 75 mL/min/1.73 sq .m. Chronic Kidney Disease: Less than 60 mL/min/1.73 square meters End Stage Renal Disease: Les s than 15 mL/min/1.73 square meters Performed By: #### CBC, ADIF F, ANEU #### [address] [place], [place] [address] #### CMP, GFR #### [address] [address] xr ribs 2 views left/pa chest(ao) on 2020-03-17 XR RIBS 2 VIEWS ORIGINAL Normal 03-17-2020 [facility] LEFT/PA CHEST(AO) XR RIBS 2 VIEWS LEFT/PA CHEST(AO) [facility] ([place]) ([id number]) CLINICAL STATEMENT: fall / left sided rib pain. COMPARISON: Chest x-ray dated 02/06/2020 FINDINGS: The heart is fadia l in size. No vascular congestion or pneumothorax is identified. Lung volumes are low. No acute infiltrate or pleural effusion seen. No visible rib fracture. IMPRESSION: No displaced rib fracture identified. Interpreted By: Piedad Prince MD Preliminary Report By: Piedad Prince MD Electronically Signed By: Piedad Prince MD Dictated Date: 03/17/2020 4:26:00 PM Prelim Date: 03/17/2020 4:26:00 PM Sign Date: 03/17/2020 4:28:08 PM Ordering Provider:Fredy Salinas sr-xr ribs 2 views left/pa chest(ao) imp ort on 2020-03-17 SR-XR RIBS 2 [facility] Normal 03-17-2020 [facility] VIEWS LEFT/PA [id number] [place] CHEST(AO) IMPORT (00 000) ct-ct abdomen/pelvis w/o contrast import on 2020-02-15 CT-CT ABDOMEN/PELVIS Images were obtained outside of [facility] Normal 02-15-2020 [place] W/O CONTRAST IMPORT [id number] [facility] ([id number]) ct abdomen/pelvis w/o contrast on 2020-02-15 CT ABDOMEN/PELVIS W/O ORIGINAL Normal 02-15-20 20 [facility] CONTRAST CT ABDOMEN/PELVIS W/O CONTRAST [facility] ([place]) ([id number]) TECHNIQUE: Images were obtai margaux without contrast. This exam was performed according to our departmental dose optimization program, and includes the following measures where applicable: automated exposur e control, adjustment of the mAs and/or kVp according to patient size and/or exam, and an iterative reconstruction algorithm. CLINICAL STATEMENT: abd pain. COMPARISON: 01/27/2018 FINDINGS: There are mild deg enerative changes noted in the spine. Postoperative changes are present inferiorly as well. The lung bases are unremarkable. There is a nodular surface l iver contour suggesting hepatocellular disease. A focal liver lesion is not identified. There is splenomegaly present. There is small to moderate volume ascites within the ab domen and pelvis. Mildly pro minent lymph nodes are present at the harrison hepatis. These are presumably reactive or hyperplastic related to liver disease. Cholecystectomy clips are no eliel. The adrenal glands and pancreas are normal. No renal abnormality seen. No free air is identified. No other adenopathy seen. There is moderate diverticulosis of the sigmo id and LEFT colon without di verticulitis. No other GI tract abnormality is identified. No additional contributory finding. IMPRESSION: Cirrhosis, splen omegaly and ascites. No focal liver lesion seen. Diverticular disease without diverticulitis. No definite acute process on this exam. Interpreted By: Edwin Oconnor MD Preliminary Report By: Edwin Oconnor MD Electronically Signed By: Edwin Oconnor MD Dictated Date: 02/15/2020 9:52:00 AM Prelim Date: 02/15/2020 9:52:00 AM Sign Date: 02/15/2020 9:55:07 AM Ordering Provider:Jesse Valdivia cur on 2020-02-08 CUR . Normal 02-08-2020 [facility] MICRO - Microbiology [facility] ([place]) ([id number]) PROCEDURE: Urine Culture [*1] SOURCE: Urine, Clean Catch BODY SITE: COLLECTED DATE/TIME: 02/06/20 12:02 EDT RECEIVED DATE/TIME: 02/06/2020 19:59 EDT START DATE/TIME: 02/06/2020 19:59 EDT FREE TEXT SOURCE: FINAL REPORTS Final Report [] Verified Date/Time/Personnel: 02/08/2020 08:18 EDT >100,000 organisms per mL Klebsiella pneumoniae ESBL Extended-Spectrum B-Lactamase isolate may be clinically resistant to therapy with Penicillins, Cephalosporinsor Aztreonam despite apparent in vitro susceptibility to some of these agents. Use of Imipenem is currently restricted to Infectious Disease /Intensivists. Please consult Physicians accordingly. PRELIMINARY REPORTS Preliminary Report [] Verified Date/Time/Personnel: 02/07/2020 11:25 EDT >100,000 organisms per mL Gram Negative Rods Final identification and SERGIO to follow. 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 Cement Car Dumper Ceftriaxone >32 Suspected ESBL Cement Car Dumper Cefuroxime >16 Resistant Ciprofloxacin <=1 Susceptible Gentamicin <=4 Susceptible Levofloxacin <=2 Susceptible Meropenem <=1 Susceptible Trimethoprim/ >2/38 Resistant Sulfa Performing Locations *1: This test was performed at: [facility], [address] [place] [address], [id number]- , [place] Comment: Performed By: #### CBC, ADIF F, ANEU #### [address] [address] #### CMP, GFR #### [address] [address] xr chest 2 views on 2020-02-06 XR CHEST 2 VIEWS ORIGINAL Normal 02-06-2020 [facility] XR CHEST 2 VIEWS [place] ([place]) ([id number]) CLINICAL HISTORY: Shortness of breath COMPARISON: 07/14/2011. FINDINGS: The cardiomediasti nal contours are normal. There is no focal airspace disease. No nodule or mass is identified. There is no appreciable pleural fluid or pneumothorax. No suspicious osseous abnormality is identified. IMPRESSION: 1. No acute radiographic findings. Interpreted By: Sim Welsh MD Preliminary Report By: Sim Welsh MD Electronically Signed By: Sim Welsh MD Dictated Date: 02/06/2020 1:19:08 PM Prelim Date: 02/06/2020 1:19:08 PM Sign Date: 02/06/2020 1:19:43 PM Ordering Provider:Jesse Valdivia ua on 2020-02-06 Color (U) Ellie Normal 02-06-2020 [facility] ([place]) ([id number]) Comment: Performed By: #### CBC, ADIF F, ANEU #### [address] [address] #### CMP, GFR #### [address] [address] Glucose (U) [Mass/Vol] Negative Negative mg/dL Normal 020 [facility] ([place]) ([address]) Comment: Performed By: #### CBC, ADIF F, ANEU #### [address] [address] #### CMP, GFR #### [address] [address] Ketones Ql (U) Negative Negative Normal 02-06-2020 [facility] ([place]) (166[address]) Comment: Performed By: #### CBC, ADIF F, ANEU #### [address] [address] #### CMP, GFR #### [address] [address] UA Appear Cloudy Clear Abnormal 02-06-2020 [facility] ([place]) ([id number]) Comment: Performed By: #### CBC, ADIF F, ANEU #### [address] [address] #### CMP, GFR #### [address] [address] UA Blood Negative Negative Normal 02-06-2020 [facility] ([place]) ([address]) Comment: Performed By: #### CBC, ADIF F, ANEU #### [address] [address] #### CMP, GFR #### [place] [address] UA Leuk Est Small Negative Abnormal 02-06-2020 [facility] ([place]) (96856) Comment: Performed By: #### CBC, ADIF F, ANEU #### [place] [address] #### CMP, GFR #### [place] [address] UA Nitrite Negative Negative Normal 02-06-2020 [facility] ([place]) ([address]) Comment: Performed By: #### CBC, ADIF F, ANEU #### [place] [address] #### CMP, GFR #### [place] [address] UA pH 5.5 5.0 - 8.0 Normal 02-06-2020 [facility] ([place]) ([address]) Comment: Performed By: #### CBC, ADIF F, ANEU #### [place] [address] #### CMP, GFR #### [place] [address] UA Protein Negative Negative Normal 02-06-2020 [facility] ([place]) ([address]) Comment: Performed By: #### CBC, ADIF F, ANEU #### [address] [address] #### CMP, GFR #### [address] [address] UA Spec Grav >=1.030 1.015-1.025 Abnormal 02-06-2020 [facility] ([place]) ([address]) Comment: Performed By: #### CBC, ADIF F, ANEU #### [place] [address] #### CMP, GFR #### [address] [address] UA Specimen Type Clean Catch Normal 02-06-2020 [facility] ([place]) ([address]) Comment: Performed By: #### CBC, ADIF F, ANEU #### [place] [address] #### CMP, GFR #### [address] [address] UA Urobilinogen >=8.0 0.2-1.0 Abnormal 02-06-2020 Pending sale to [facility] ([place]) (28761) Comment: Performed By: #### CBC, ADIF F, ANEU #### [place] [address] #### CMP, GFR #### [address] [address] Urobilinogen Qn (U) Small Negative Abnormal 02-06-2020 [facility] ([place]) (0000 0) Comment: Performed By: #### CBC, ADIF F, ANEU #### [place] [address] #### CMP, GFR #### [address] [address] sr-xr chest 2 views import on 2020-02-06 SR-XR CHEST 2 Images were obtained outside of [facility] Normal 02-06-2020 [facility] VIEWS IMPORT [id number] [place] ([id number]) cmp on 2020-02-06 Albumin [Mass/Vol] 2.8 3.4-4.8 G/dL Low 02-06-2020 [facility] ([place]) ([address]) Comment: Performed By: #### CBC, ADIF F, ANEU #### [place] [address] #### CMP, GFR #### [address] [address] Albumin/Globulin [Mass ratio] 0.8 1.1-2.5 ratio Low 02-06-2020 [facility] ([place]) ([address]) Comment: Performed By: #### CBC, ADIF F, ANEU #### [place] [address] #### CMP, GFR #### [address] [address] ALP [Catalytic activity/Vol] 169 40-135 U/L High 0 02-06-2020 [facility] ([place]) (0000 0) Comment: Performed By: #### CBC, ADIF F, ANEU #### [place] [address] #### CMP, GFR #### [address] [address] ALT [Catalytic activity/Vol] 31 10-35 U/L Normal 0 02-06-2020 [facility] ([place]) (0000 0) Comment: Performed By: #### CBC, ADIF F, ANEU #### [place] [address] #### CMP, GFR #### [address] [address] AST [Catalytic activity/Vol] 48 10-40 U/L High 0 02-06-2020 [facility] ([place]) (0000 0) Comment: Performed By: #### CBC, ADIF F, ANEU #### [place] [address] #### CMP, GFR #### [address] [address] Bili Total 4.5 0.2-1.0 mg/dL High 02-06-2020 [facility] ([place]) (78163) Comment: Result Comment: Use of this assay is not recommended for patients undergoing treatment with eltrombopag d ue to the potential for falsely elevated results. Performed By: #### CBC, ADIF F, ANEU #### [place] [address] #### CMP, GFR #### [address] [address] Calcium [Mass/Vol] 7.7 8.4-10.2 mg/dL Low 02-06-2020 [facility] ([place]) ([address]) Comment: Performed By: #### CBC, ADIF F, ANEU #### [place] [address] #### CMP, GFR #### [place] [address] Chloride [Moles/Vol] 106 98-107 mmol/L Normal 0 [facility] ([place]) (0000 0) Comment: Performed By: #### CBC, ADIF F, ANEU #### [place] [address] #### CMP, GFR #### [address] [address] CO2 [Moles/Vol] 24 23-31 mmol/L Normal 02-06-2020 Pending [facility] to [facility] ([place]) ([address]241) Comment: Performed By: #### CBC, ADIF F, ANEU #### [place] [address] #### CMP, GFR #### [place] [address] Creatinine [Mass/Vol] 0.88 0.70-1.30 mg/dL Normal 02-06-20 20 [facility] ([place]) ([address]) Comment: Performed By: #### CBC, ADIF F, ANEU #### [place] [address] #### CMP, GFR #### [address] [address] Electrolyte Balance 9.0 mEq/L Normal 02-06-2020 [facility] ([place]) (96323) Comment: Performed By: #### CBC, ADIF F, ANEU #### [address] [address] #### CMP, GFR #### [address] [address] Globulin (S) [Mass/Vol] 3.7 G/dL Normal 2019 [facility] ([place]) ([address]) Comment: Performed By: #### CBC, ADIF F, ANEU #### [address] [address] #### CMP, GFR #### [address] [address] Glucose [Mass/Vol] 214 80-115 mg/dL High 02-06-2020 [facility] ([place]) (79724) Comment: Performed By: #### CBC, ADIF F, ANEU #### [address] [address] #### CMP, GFR #### [address] [address] Potassium [Moles/Vol] 3.5 3.5-5.1 mmol/L Normal 02-06-20 [facility] ([place]) (0000 0) Comment: Performed By: #### CBC, ADIF F, ANEU #### [address] [address] #### CMP, GFR #### [address] [address] Protein [Mass/Vol] 6.5 6.4-8.2 G/dL Normal 02-06-2020 [facility] ([place]) ([id number]) Comment: Performed By: #### CBC, ADIF F, ANEU #### [address] [address] #### CMP, GFR #### [address] [address] Sodium [Moles/Vol] 139 136-145 mmol/L Normal 02-06-2020 [facility] ([place]) (0000 0) Comment: Performed By: #### CBC, ADIF F, ANEU #### [address] [address] #### CMP, GFR #### [address] [address] Urea nitrogen [Mass/Vol] 11 7-18 mg/dL Normal 02-05 [facility] ([place]) (0000 0) Comment: Performed By: #### CBC, ADIF F, ANEU #### [place] [address] #### CMP, GFR #### [address] [address] Urea nitrogen/Creatinine [Mass 12 -27 ratio Normal 02-06-2020 [facility] ([place]) (48524) Comment: Performed By: #### CBC, ADIF F, ANEU #### [place] [address] #### CMP, GFR #### [address] [address] cbc on 2020-02-06 Erythrocyte distribution 25.1 11.5-14.5 % High 02-05 [facility] width (RBC) [Ratio] ([place]) ([address]27) Comment: Performed By: #### ANEU, CMP , GFR, ADIFF, CBC #### [address] [address] Performed By: #### CBC, ADIF F, ANEU, CMP, GFR #### [address] [address] Hematocrit (Bld) [Volume 30.1 42.0-52.0 % Low 02-05 [facility] fraction] ([place]) (0000 0) Comment: Performed By: #### ANEU, CMP , GFR, ADIFF, CBC #### [address] [address] Performed By: #### CBC, ADIF F, ANEU, CMP, GFR #### [address] [address] Hemoglobin (Bld) 10.1 14.0-18.0 G/dL Low 02-06-2020 [facility] [Mass/Vol] ([place]) (000 00) Comment: Performed By: #### ANEU, CMP , GFR, ADIFF, CBC #### [place] [address] Performed By: #### CBC, ADIF F, ANEU, CMP, GFR #### [address] [address] MCH (RBC) [Entitic mass] 32.3 27.0-31.2 pg High 02-05 [facility] ([place]) (0000 0) Comment: Performed By: #### ANEU, CMP , GFR, ADIFF, CBC #### [place] [address] Performed By: #### CBC, ADIF F, ANEU, CMP, GFR #### [place] [address] MCHC (RBC) [Mass/Vol] 33.6 31.8-35.4 G/dL Normal 02-06-20 20 [facility] ([place]) (0000 0) Comment: Performed By: #### ANEU, CMP , GFR, ADIFF, CBC #### [place] [address] Performed By: #### CBC, ADIF F, ANEU, CMP, GFR #### [place] [address] MCV (RBC) [Entitic vol] 96.1 80.0-94.0 fL High 2019 [facility] ([place]) (0000 0) Comment: Performed By: #### ANEU, CMP , GFR, ADIFF, CBC #### [place] [address] Performed By: #### CBC, ADIF F, ANEU, CMP, GFR #### [place] [address] Platelet mean volume 9.0 7.4-10.4 fL Normal 0 [facility] (Bld) [Entitic vol] ([place]) ([address]) Comment: Performed By: #### ANEU, CMP , GFR, ADIFF, CBC #### [place] [address] Performed By: #### CBC, ADIF F, ANEU, CMP, GFR #### [place] [address] Platelets (Bld) [#/Vol] 60 130-400 10 3/mcL Low 2019 [facility] ([place]) (0000 0) Comment: Performed By: #### ANEU, CMP , GFR, ADIFF, CBC #### [place] [address] Performed By: #### CBC, ADIF F, ANEU, CMP, GFR #### [place] [address] RBC (Bld) [#/Vol] 3.13 4.04-6.13 10 6/mcL Low 02-06-2020 [facility] ([place]) ([address] 0) Comment: Performed By: #### ANEU, CMP , GFR, ADIFF, CBC #### [place] [address] Performed By: #### CBC, ADIF F, ANEU, CMP, GFR #### [place] [address] WBC (Bld) [#/Vol] 3.90 4.60-10.80 10 3/mcL Low 02-06-2020 [facility] ([place]) (0000 0) Comment: Performed By: #### ANEU, CMP , GFR, ADIFF, CBC #### [place] [address] Performed By: #### CBC, ADIF F, ANEU, CMP, GFR #### [place] [address] .urinalysis microscopic (ao) on 2020-02-06 RBC (U) [#/Vol] None Seen None Seen Normal 02-06-2020 [facility] to [facility] ([place]) (0000 0) Comment: Performed By: #### CBC, ADIF F, ANEU #### [place] [address] #### CMP, GFR #### [address] [address] UA Bacteria 4+ /hpf Abnormal 02-06-2020 [facility] ([place]) (77781) Comment: Performed By: #### CBC, ADIF F, ANEU #### [place] [address] #### CMP, GFR #### [address] [address] UA Squam Epithelial None Seen None Seen Normal 02-06-2020 [facility] ([place]) (0000 0) Comment: Performed By: #### CBC, ADIF F, ANEU #### [place] [address] #### CMP, GFR #### [place] [address] UA WBC LOADED None Seen Abnormal 02-06-2020 [facility] ([place]) ([address]) Comment: Performed By: #### CBC, ADIF F, ANEU #### [place] [address] #### CMP, GFR #### [place] [address] .neuabs on Neutrophils (Bld) 2.40 2.85-6.16 10 3/mcL Low 02-06-2020 [facility] [#/Vol] [facility] ([place]) ([address]) Comment: Performed By: #### ANEU, CMP , GFR, ADIFF, CBC #### [place] [address] Performed By: #### CBC, ADIF F, ANEU, CMP, GFR #### [address] [address] .gfr on 2020-02-06 GFR Non- 88 ml/min/1.73sqm Normal 02-06-2020 [facility] ([place]) (26663) Comment: Result Comment: GFR Population mean for Afri can Nigerian, Non- Americans Ages 20-29 = 116 mL/min/1.73 sq.m. Ages 30-39 = 107 mL/min/1.73 sq.m. Ages 40-49 = 99 mL/min/1.73 sq.m. Ages 50-59 = 93 mL/min/1.73 sq.m. Ages 60-69 = 85 mL/min/1.73 sq.m. Ages 70+ = 75 mL/min/1.73 sq .m. Chronic Kidney Disease: Less than 60 mL/min/1.73 square meters End Stage Renal Disease: Les s than 15 mL/min/1.73 square meters Performed By: #### CBC, ADIF F, ANEU #### [address] [address] #### CMP, GFR #### [address] [address] GFR 106 ml/min/1.73sqm Normal - [facility] ([place]) (0000 0) Comment: Result Comment: GFR Population mean for Afri can Nigerian, Non- Americans Ages 20-29 = 116 mL/min/1.73 sq.m. Ages 30-39 = 107 mL/min/1.73 sq.m. Ages 40-49 = 99 mL/min/1.73 sq.m. Ages 50-59 = 93 mL/min/1.73 sq.m. Ages 60-69 = 85 mL/min/1.73 sq.m. Ages 70+ = 75 mL/min/1.73 sq .m. Chronic Kidney Disease: Less than 60 mL/min/1.73 square meters End Stage Renal Disease: Les s than 15 mL/min/1.73 square meters Performed By: #### CBC, ADIF F, ANEU #### [address] [address] #### CMP, GFR #### [address] [address] .auto diff on 02-05 Ammonia (P) [Mass/Vol] 0.50 0.15-1.00 10 3/mcL Normal 02-05- 020 [facility] ([place]) ([address]20) Comment: Performed By: #### ANEU, CMP , GFR, ADIFF, CBC #### [address] [address] Performed By: #### CBC, ADIF F, ANEU, CMP, GFR #### [address] [address] Basophils (Bld) 0.00 0.00-0.19 10 3/mcL Normal 02-06-2020 [facility] [#/Vol] [facility] ([place]) ([address]) Comment: Performed By: #### ANEU, CMP , GFR, ADIFF, CBC #### [address] [address] Performed By: #### CBC, ADIF F, ANEU, CMP, GFR #### [address] [address] Basophils/100 WBC (Bld) 0.7 0.0-2.5 % Normal 2019 [facility] ([place]) (0000 0) Comment: Performed By: #### ANEU, CMP , GFR, ADIFF, CBC #### [address] [address] Performed By: #### CBC, ADIF F, ANEU, CMP, GFR #### [address] [address] Eosinophils (Bld) 0.10 0.00-0.40 10 3/mcL Normal 02-06-2020 [facility] [#/Vol] [facility] ([place]) ([address]) Comment: Performed By: #### ANEU, CMP , GFR, ADIFF, CBC #### [address] [address] Performed By: #### CBC, ADIF F, ANEU, CMP, GFR #### [address] [address] Eosinophils/100 WBC (Bld) 2.9 0.0-7.0 % Normal - [facility] ([place]) (0000 0) Comment: Performed By: #### ANEU, CMP , GFR, ADIFF, CBC #### [address] [address] Performed By: #### CBC, ADIF F, ANEU, CMP, GFR #### [address] [address] Lymphocytes (Bld) 0.80 0.77-3.85 10 3/mcL Normal 02-06-2020 [facility] [/[facility]] [facility] ([place]) ([address]) Comment: Performed By: #### ANEU, CMP , GFR, ADIFF, CBC #### [address] [address] Performed By: #### CBC, ADIF F, ANEU, CMP, GFR #### [address] [address] Lymphocytes/100 WBC (Bld) 20.3 10.0-50.0 % Normal 01-11 [facility] ([place]) (10746) Comment: Performed By: #### ANEU, CMP , GFR, ADIFF, CBC #### [address] [address] Performed By: #### CBC, ADIF F, ANEU, CMP, GFR #### [address] [address] Monocytes/100 WBC (Bld) 13.7 1.7-13.0 % High 2019 [facility] ([place]) (0000 0) Comment: Performed By: #### ANEU, CMP , GFR, ADIFF, CBC #### [address] [address] Performed By: #### CBC, ADIF F, ANEU, CMP, GFR #### [address] [address] Neutrophils/100 WBC (Bld) 62.4 37.0-80.0 % Normal 01-11 [facility] ([place]) (61448) Comment: Performed By: #### ANEU, CMP , GFR, ADIFF, CBC #### [address] [address] Performed By: #### CBC, ADIF F, ANEU, CMP, GFR #### [place] [address] [place], [place] [address] xr hand and wrist 6 views left on 2019-11-22 XR HAND AND WRIST ORIGINAL Normal 11-22-2019 [facility] 6 VIEWS LEFT XR HAND AND WRIST 6 VIEWS LEFT [facility] ([place]) ([address]) CLINICAL STATEMENT: painn s/p injury. COMPARISON: None FINDINGS: No acute fracture or dislocation is identified. The joint spaces are maintained. There is no radiopaque foreign body. IMPRESSION: No acute fracture or dislocation. Interpreted By: Carl Hunter MD Preliminary Report By: Cral Hunter MD Electronically Signed By: Carl Hunter MD Dictated Date: 11/22/2019 9:33:45 AM Prelim Date: 11/22/2019 9:33:45 AM Sign Date: 11/22/2019 9:34:33 AM Ordering Provider:Teddy Singh xr forearm 2 views left on 2019-11-22 XR FOREARM 2 VIEWS ORIGINAL Normal 11-22-2019 [facility] LEFT XR FOREARM 2 VIEWS LEFT [facility] ([place]) ([address]) CLINICAL STATEMENT: pain s/p injury. COMPARISON: None FINDINGS: No acute fracture or dislocation is identified. There is no radiopaque foreign body. IMPRESSION: No acute fracture or dislocation. Interpreted By: Carl Hunter MD Preliminary Report By: Carl Hunter MD Electronically Signed By: Carl Hunter MD Dictated Date: 11/22/2019 9:34:43 AM Prelim Date: 11/22/2019 9:34:43 AM Sign Date: 11/22/2019 9:35:04 AM Ordering Provider:Teddy Singh cmp on 2019-10-22 Albumin [Mass/Vol] 3.1 3.4-4.8 G/dL Low 10-22-2019 [facility] ([place]) ([id number]) Comment: Performed By: #### CBC, ADIF F, ANEU #### [address] [address] #### CMP, GFR #### [address] [address] Albumin/Globulin [Mass ratio] 0.8 1.1-2.5 ratio Low 10-22-2019 [facility] ([place]) ([id number]) Comment: Performed By: #### CBC, ADIF F, ANEU #### [address] [address] #### CMP, GFR #### [address] [address] ALP [Catalytic activity/Vol] 177 40-135 U/L High 0 10-22-2019 [facility] ([place]) (0000 0) Comment: Performed By: #### CBC, ADIF F, ANEU #### [place] [address] #### CMP, GFR #### [address] [address] ALT [Catalytic activity/Vol] 41 10-35 U/L High 0 10-22-2019 [facility] ([place]) (0000 0) Comment: Performed By: #### CBC, ADIF F, ANEU #### [place] [address] #### CMP, GFR #### [place] [address] AST [Catalytic activity/Vol] 50 10-40 U/L High 0 10-22-2019 [facility] ([place]) (0000 0) Comment: Performed By: #### CBC, ADIF F, ANEU #### [address] [address] #### CMP, GFR #### [address] [address] Bili Total 2.5 0.2-1.0 mg/dL High 10-22-2019 [facility] ([place]) ([address]30) Comment: Performed By: #### CBC, ADIF F, ANEU #### [address] [address] #### CMP, GFR #### [address] [address] Calcium [Mass/Vol] 8.5 8.4-10.2 mg/dL Normal 10-22-2019 [facility] ([place]) (0000 0) Comment: Performed By: #### CBC, ADIF F, ANEU #### [address] [address] #### CMP, GFR #### [address] [address] Chloride [Moles/Vol] 107 98-107 mmol/L Normal 0 [facility] ([place]) (0000 0) Comment: Performed By: #### CBC, ADIF F, ANEU #### [address] [address] #### CMP, GFR #### [address] [address] CO2 [Moles/Vol] 26 23-31 mmol/L Normal 10-22-2019 Pending sale to [facility] ([place]) (29217) Comment: Performed By: #### CBC, ADIF F, ANEU #### [address] [address] #### CMP, GFR #### [address] [address] Creatinine [Mass/Vol] 0.92 0.70-1.30 mg/dL Normal 10-22-19 20 [facility] ([place]) (85952) Comment: Performed By: #### CBC, ADIF F, ANEU #### [address] [address] #### CMP, GFR #### [address] [address] Electrolyte Balance 8.0 mEq/L Normal 10-22-2019 [facility] [facility] ([place] ([id number]) Comment: Performed By: #### CBC, ADIF F, ANEU #### [address] [address] #### CMP, GFR #### [address] [address] Globulin (S) [Mass/Vol] 4.0 G/dL Normal 2019 [facility] ([place]) (15038) Comment: Performed By: #### CBC, ADIF F, ANEU #### [address] [address] #### CMP, GFR #### [address] [address] Glucose [Mass/Vol] 190 80-115 mg/dL High 10-22-2019 [facility] ([place]) (97296) Comment: Performed By: #### CBC, ADIF F, ANEU #### [address] [address] #### CMP, GFR #### [address] [address] Potassium [Moles/Vol] 3.9 3.5-5.1 mmol/L Normal 10-22-19 [facility] ([place]) (0000 0) Comment: Performed By: #### CBC, ADIF F, ANEU #### [address] [address] #### CMP, GFR #### [address] [address] Protein [Mass/Vol] 7.1 6.4-8.2 G/dL Normal 10-22-2019 [facility] ([place]) (96180) Comment: Performed By: #### CBC, ADIF F, ANEU #### [address] [address] #### CMP, GFR #### [address] [address] Sodium [Moles/Vol] 141 136-145 mmol/L Normal 10-22-2019 [facility] ([place]) (0000 0) Comment: Performed By: #### CBC, ADIF F, ANEU #### [address] [address] #### CMP, GFR #### [address] [address] Urea nitrogen [Mass/Vol] 13 7-18 mg/dL Normal 10-22 [facility] ([place]) (0000 0) Comment: Performed By: #### CBC, ADIF F, ANEU #### [address] [address] #### CMP, GFR #### [address] [address] Urea nitrogen/Creatinine [Mass 14 7-27 ratio Normal 10-22-2019 [facility]] [facility] [place] ([place]) ([address]33) Comment: Performed By: #### CBC, ADIF F, ANEU #### [address] [address] #### CMP, GFR #### [address] [address] cbc on 2019-10-22 Erythrocyte distribution 17.7 11.5-14.5 % High 10-22 [facility] width (RBC) [Ratio] ([place]) (44543) Comment: Performed By: #### CBC, ADIF F, ANEU #### [place] [address] #### CMP, GFR #### [address] [address] Hematocrit (Bld) [Volume 27.6 42.0-52.0 % Low 10-22 [facility] fraction] ([place]) (0000 0) Comment: Performed By: #### CBC, ADIF F, ANEU #### [place] [address] #### CMP, GFR #### [place] [address] Hemoglobin (Bld) 9.7 14.0-18.0 G/dL Low 10-22-2019 [facility] [Mass/Vol] ([place]) (000 00) Comment: Performed By: #### CBC, ADIF F, ANEU #### [place] [address] #### CMP, GFR #### [address] [address] MCH (RBC) [Entitic mass] 35.2 27.0-31.2 pg High 10-22 [facility] ([place]) (0000 0) Comment: Performed By: #### CBC, ADIF F, ANEU #### [place] [address] #### CMP, GFR #### [address] [address] MCHC (RBC) [Mass/Vol] 34.9 31.8-35.4 G/dL Normal 10-22-19 20 [facility] ([place]) (0000 0) Comment: Performed By: #### CBC, ADIF F, ANEU #### [address] [address] #### CMP, GFR #### [address] [address] MCV (RBC) [Entitic vol] 100.7 80.0-94.0 fL High 2019 [facility] ([place]) (0000 0) Comment: Performed By: #### CBC, ADIF F, ANEU #### [place] [address] #### CMP, GFR #### [address] [address] Platelet mean volume 8.9 7.4-10.4 fL Normal 0 [facility] (Bld) [Entitic vol] ([place]) (56593) Comment: Performed By: #### CBC, ADIF F, ANEU #### [place] [address] #### CMP, GFR #### [address] [address] Platelets (Bld) [#/Vol] 53 130-400 10 3/mcL Low 2019 [facility] ([place]) (0000 0) Comment: Performed By: #### CBC, ADIF F, ANEU #### [place] [address] #### CMP, GFR #### [address] [address] RBC (Bld) [#/Vol] 2.74 4.04-6.13 10 6/mcL Low 10-22-2019 [facility] ([place]) (0000 0) Comment: Performed By: #### CBC, ADIF F, ANEU #### [place] [address] #### CMP, GFR #### [address] [address] WBC (Bld) [#/Vol] 4.00 4.60-10.80 10 3/mcL Low 10-22-2019 [facility] ([place]) (0000 0) Comment: Performed By: #### CBC, ADIF F, ANEU #### [address] [address] #### CMP, GFR #### [address] [address] .neuabs on Neutrophils (Bld) 2.30 2.85-6.16 10 3/mcL Low 10-22-2019 [facility] [#/Vol] [facility] [place] ([place]) (16103) Comment: Performed By: #### CBC, ADIF F, ANEU #### [address] [address] #### CMP, GFR #### [address] [address] .gfr on 2019-10-22 GFR 101 ml/min/1.73sqm Normal 10-13 [facility] ([place]) (0000 0) Comment: Result Comment: GFR Population mean for Afri can Nigerian, Non- Americans Ages 20-29 = 116 mL/min/1.73 sq.m. Ages 30-39 = 107 mL/min/1.73 sq.m. Ages 40-49 = 99 mL/min/1.73 sq.m. Ages 50-59 = 93 mL/min/1.73 sq.m. Ages 60-69 = 85 mL/min/1.73 sq.m. Ages 70+ = 75 mL/min/1.73 sq .m. Chronic Kidney Disease: Less than 60 mL/min/1.73 square meters End Stage Renal Disease: Les s than 15 mL/min/1.73 square meters Performed By: #### CBC, ADIF F, ANEU #### [address] [address] #### CMP, GFR #### [address] [address] GFR Non- 83 ml/min/1.73sqm Normal 10-22-2019 [facility] ([place]) (43633) Comment: Result Comment: GFR Population mean for Afri can Nigerian, Non- Americans Ages 20-29 = 116 mL/min/1.73 sq.m. Ages 30-39 = 107 mL/min/1.73 sq.m. Ages 40-49 = 99 mL/min/1.73 sq.m. Ages 50-59 = 93 mL/min/1.73 sq.m. Ages 60-69 = 85 mL/min/1.73 sq.m. Ages 70+ = 75 mL/min/1.73 sq .m. Chronic Kidney Disease: Less than 60 mL/min/1.73 square meters End Stage Renal Disease: Les s than 15 mL/min/1.73 square meters Performed By: #### CBC, ADIF F, ANEU #### [place] [address] #### CMP, GFR #### [address] [address] .auto diff on 10-22 Ammonia (P) [Mass/Vol] 0.60 0.15-1.00 10 3/mcL Normal 020 [facility] ([place]) (21061) Comment: Performed By: #### CBC, ADIF F, ANEU #### [place] [address] #### CMP, GFR #### [address] [address] Basophils (Bld) 0.00 0.00-0.19 10 3/mcL Normal 10-22-2019 [facility] [#/Vol] [facility] [place] ([place]) (06082) Comment: Performed By: #### CBC, ADIF F, ANEU #### [place] [address] #### CMP, GFR #### [address] [address] Basophils/100 WBC (Bld) 0.7 0.0-2.5 % Normal 2019 [facility] ([place]) (0000 0) Comment: Performed By: #### CBC, ADIF F, ANEU #### [place] [address] #### CMP, GFR #### [address] [address] Eosinophils (Bld) 0.10 0.00-0.40 10 3/mcL Normal 10-22-2019 [facility] [#/Vol] [facility] [place] ([place]) (97214) Comment: Performed By: #### CBC, ADIF F, ANEU #### [place] [address] #### CMP, GFR #### [address] [address] Eosinophils/100 WBC (Bld) 2.7 0.0-7.0 % Normal 10-13 0 [facility] ([place]) (0000 0) Comment: Performed By: #### CBC, ADIF F, ANEU #### [place] [address] #### CMP, GFR #### [address] [address] Lymphocytes (Bld) 1.00 0.77-3.85 10 3/mcL Normal 10-22-2019 [facility] [#/Vol] [facility] [place] ([place]) (75490) Comment: Performed By: #### CBC, ADIF F, ANEU #### [place] [address] #### CMP, GFR #### [address] [address] Lymphocytes/100 WBC (Bld) 24.1 10.0-50.0 % Normal - 0-2019 [facility] ([place]) (08307) Comment: Performed By: #### CBC, ADIF F, ANEU #### [place] [address] #### CMP, GFR #### [address] [address] Monocytes/100 WBC (Bld) 14.1 1.7-13.0 % High 2019 [facility] ([place]) (0000 0) Comment: Performed By: #### CBC, ADIF F, ANEU #### [address] [address] #### CMP, GFR #### [address] [address] Neutrophils/100 WBC (Bld) 58.4 37.0-80.0 % Normal 10-13 [facility] ([place]) (43276) Comment: Performed By: #### CBC, ADIF F, ANEU #### [address] [address] #### CMP, GFR #### [facility] [address] [place] [address] sed rate on 2017-06 Sed Rate 61 0-10 mm/h High 07-12-2017 [facility] (53831) Comment: Performed By: #### HEMDF, BM P3, PCAL ####[place] [address] [place] [address] hemogram w/ autodiff on 2017-07-12 Granulocytes/100 WBC (Bld) 60.2 % Normal [facility] (01082) Comment: Performed By: #### HEMDF, BM P3, PCAL ####[place] [address] [place] [address] Platelets 98 140-440 10*3/uL Low 07-12-2017 [facility] (14140) Comment: Performed By: #### HEMDF, BM P3, PCAL ####[place] [address] [place] [address] Abs Baso Cnt 0.0 0.0-0.2 10*3/uL Normal 07-12-[address] [facility] (75033) Comment: Performed By: #### HEMDF, BM P3, PCAL ####[place] [address] [place] [address] Basophils/100 WBC Auto (Bld) 0.6 % Normal 1 [facility] (70197) Comment: Performed By: #### HEMDF, BM P3, PCAL ####[address] [place] [address] Eosinophils 0.1 0.0-0.5 10*3/uL Normal 07-12-2017 [facility] (78057) Comment: Performed By: #### HEMDF, BM P3, PCAL ####[address] [place] [address] Eosinophils/100 leukocytes 2.8 % Normal [facility] (09619) Comment: Performed By: #### HEMDF, BM P3, PCAL ####[place] [address] Erythrocyte distribution 16.8 11.5-14.5 % High 07-[address] [facility] width Auto Ratio (RBC) (60984) Comment: Performed By: #### HEMDF, BM P3, PCAL ####[place] [address] Erythrocytes (RBC) 2.90 4.40-5.90 10*6/uL Low 07-12-[address] [facility] (44123) Comment: Performed By: #### HEMDF, BM P3, PCAL ####[place] [address] Hematocrit (HCT) 29.2 40.0-52.0 % Low 07-12-2017 [facility] (30705) Comment: Performed By: #### HEMDF, BM P3, PCAL ####[address] [place] [address] Hemoglobin mass conc (Bld) 10.0 13.0-18.0 g/dL Low [facility] (77410) Comment: Performed By: #### HEMDF, BM P3, PCAL ####[place] [address] Lymphocytes 1.4 1.0-4.3 10*3/uL Normal 07-12-2017 [facility] (15288) Comment: Performed By: #### HEMDF, BM P3, PCAL ####[place] [address] [place] [address] Lymphocytes/100 leukocytes 26.7 % Normal [facility] (24973) Comment: Performed By: #### HEMDF, BM P3, PCAL ####[place] [address] [place] [address] MCH 34.6 26.0-34.0 pg High 07-12-2017 [facility] (25284) Comment: Performed By: #### HEMDF, BM P3, PCAL ####[place] [address] [place] [address] MCHC mass conc (RBC) 34.3 32.0-36.0 % Normal [address] [facility] (01149) Comment: Performed By: #### HEMDF, BM P3, PCAL ####[place] [address] [place] [address] MCV 100.7 80.0-98.0 fL High 07-12-2017 [facility] (20575) Comment: Performed By: #### HEMDF, BM P3, PCAL ####[place] [address] [place] [address] Monocytes 0.5 0.0-0.8 10*3/uL Normal 07-12-2017 [facility] (97262) Comment: Performed By: #### HEMDF, BM P3, PCAL ####[place] [address] [place] [address] Monocytes/100 leukocytes 9.7 % Normal 07-[address] [facility] (20290) Comment: Performed By: #### HEMDF, BM P3, PCAL ####[place] [address] [place] [address] Neutrophils 3.1 1.8-7.0 10*3/uL Normal 07-12-2017 [facility] (94676) Comment: Performed By: #### HEMDF, BM P3, PCAL ####[place] [address] [place] [address] Platelet mean volume (PMV) 9.4 7.4-10.4 fL Normal [facility] (52415) Comment: Performed By: #### HEMDF, BM P3, PCAL ####[place] [address] [place] [address] WBC (Leukocytes) 5.1 3.6-10.7 10*3/uL Normal 07-12-2017 [facility] (31436) Comment: Performed By: #### HEMDF, BM P3, PCAL ####[place] [address] [place] [address] comp metabolic panel on 2017-07-12 Alanine aminotransferase (ALT) 69 12-78 U/L Normal 07-12-[address] [facility] (16838) Comment: Performed By: #### HEMDF, BM P3, PCAL ####[place] [address] [place] [address] Albumin 3.2 3.4-5.0 g/dL Low 07-12-2017 [facility] (89542) Comment: Performed By: #### HEMDF, BM P3, PCAL ####[place] [address] [place] [address] Alkaline phosphatase (ALP) 271 45-117 U/L High [facility] (37133) Comment: Performed By: #### HEMDF, BM P3, PCAL ####[place] [address] [place] [address] Anion gap 10 mmol/L Normal 07-12-2017 [facility] (26719) Comment: Performed By: #### HEMDF, BM P3, PCAL ####[place] [address] [place] [address] Aspartate aminotransferase (AST) 56 15-37 U/L High 07-12-[address] [facility] (83339) Comment: Performed By: #### HEMDF, BM P3, PCAL ####[place] [address] [place] [address] Bilirubin (total) 0.6 0.2-1.0 mg/dL Normal 07-12-2017 [facility] (85721) Comment: Performed By: #### HEMDF, BM P3, PCAL ####[place] [address] [place] [address] Calcium 8.5 8.2-10.1 mg/dL Normal 07-12-2017 [facility] (62878) Comment: Performed By: #### HEMDF, BM P3, PCAL ####[place] [address] [place] [address] Chloride 106 98-109 mmol/L Normal 07-12-2017 [facility] (20520) Comment: Performed By: #### HEMDF, BM P3, PCAL ####[place] [address] [place] [address] CO2 23 21-32 mmol/L Normal 07-12-2017 [facility] (08535) Comment: Performed By: #### HEMDF, BM P3, PCAL ####[place] [address] [place] [address] Creatinine 0.82 0.55-1.40 mg/dL Normal 07-12-2017 [facility] (20612) Comment: Performed By: #### HEMDF, BM P3, PCAL ####[place] [address] [place] [address] eGFR (black) >60.0 >60 mL/min/{1.73_m2} Normal 07-12-[address] [facility] (10470) Comment: Performed By: #### HEMDF, BM P3, PCAL ####[place] [address] [place] [address] eGFR (non-black) >60.0 >60 mL/min/{1.73_m2} Normal [address] [facility] (77764) Comment: Result Comment: Source- MDRD equation with creatinine calibration to IDMS(NKDEP)eGFR not recommen ded for drug dose adjustment Performed By: #### HEMDF, BM P3, PCAL ####[place] [address] [place] [address] Glucose mass conc 101 70-100 mg/dL High 07-12-2017 [facility] (87486) Comment: Performed By: #### HEMDF, BM P3, PCAL ####[place] [address] [place] [address] Potassium molar conc 3.5 3.5-5.1 mmol/L Normal [address] [facility] (47529) Comment: Performed By: #### HEMDF, BM P3, PCAL ####[place] [address] [place] [address] Protein 7.1 6.4-8.2 g/dL Normal 07-12-2017 [facility] (88617) Comment: Performed By: #### HEMDF, BM P3, PCAL ####[place] [address] [place] [address] Sodium 139 135-145 mmol/L Normal 07-12-2017 [facility] (98960) Comment: Performed By: #### HEMDF, BM P3, PCAL ####[place] [address] [place] [address] Urea nitrogen 13 7-25 mg/dL Normal 07-12-[address] [facility] (35617) Comment: Performed By: #### HEMDF, BM P3, PCAL ####[place] [address] [place] [address] ck on 2017-07-12 Creatine kinase (CK) 86 39-308 U/L Normal [address] [facility] (36892) Comment: Performed By: #### HEMDF, BM P3, PCAL ####[place] [address] [place] [address] c-reactive protein on 2017-07-12 C reactive protein (CRP) 7.3 0.0-2.9 mg/L High 07-[address] [facility] (96930) Comment: Result Comment: . Performed By: #### HEMDF, BM P3, PCAL ####[place] [address] [place] [address] sed rate on 2017-06 Sed Rate 51 0-10 mm/h High 06-28-2017 [facility] (45259) Comment: Performed By: #### HEMDF, BM P3, PCAL ####[address] [address] hemogram w/ autodiff on 2017-06-28 Abs Baso Cnt 0.0 0.0-0.2 10*3/uL Normal 06-28-2017 [facility] (98465) Comment: Performed By: #### HEMDF, BM P3, PCAL ####[address] [address] Basophils/100 WBC Auto (Bld) 1.2 % Normal 1 [facility] (29117) Comment: Performed By: #### HEMDF, BM P3, PCAL ####[address] [address] Eosinophils 0.1 0.0-0.5 10*3/uL Normal 06-28-2017 [facility] (03891) Comment: Performed By: #### HEMDF, BM P3, PCAL ####[address] [address] Eosinophils/100 leukocytes 2.6 % Normal [facility] (60988) Comment: Performed By: #### HEMDF, BM P3, PCAL ####[address] [address] Erythrocyte distribution 16.4 11.5-14.5 % High 06-28 [facility] width Auto Ratio (RBC) (26061) Comment: Performed By: #### HEMDF, BM P3, PCAL ####[address] [address] Erythrocytes (RBC) 2.77 4.40-5.90 10*6/uL Low 06-28-2017 [facility] (13355) Comment: Performed By: #### HEMDF, BM P3, PCAL ####[address] [address] Granulocytes/100 WBC (Bld) 61.8 % Normal [facility] (76814) Comment: Performed By: #### HEMDF, BM P3, PCAL ####[address] [place] [address] Hematocrit (HCT) 28.0 40.0-52.0 % Low 06-28-2017 [facility] (55109) Comment: Performed By: #### HEMDF, BM P3, PCAL ####[address] [place] [address] Hemoglobin mass conc (Bld) 9.3 13.0-18.0 g/dL Low [facility] (26292) Comment: Performed By: #### HEMDF, BM P3, PCAL ####[address] [address] Lymphocytes 1.0 1.0-4.3 10*3/uL Normal 06-28-2017 [facility] (86591) Comment: Performed By: #### HEMDF, BM P3, PCAL ####[address] [address] Lymphocytes/100 leukocytes 27.3 % Normal [facility] (80829) Comment: Performed By: #### HEMDF, BM P3, PCAL ####[address] [address] MCH 33.7 26.0-34.0 pg Normal 06-28-2017 [facility] (64976) Comment: Performed By: #### HEMDF, BM P3, PCAL ####[address] [address] MCHC mass conc (RBC) 33.2 32.0-36.0 % Normal [address] [facility] (76378) Comment: Performed By: #### HEMDF, BM P3, PCAL ####[address] [address] MCV 101.3 80.0-98.0 fL High 06-28-2017 [facility] (46952) Comment: Performed By: #### HEMDF, BM P3, PCAL ####[address] [address] Monocytes 0.3 0.0-0.8 10*3/uL Normal 06-28-2017 [facility] (33138) Comment: Performed By: #### HEMDF, BM P3, PCAL ####[address] [place] [address] Monocytes/100 leukocytes 7.1 % Normal 06-[address] [facility] (23632) Comment: Performed By: #### HEMDF, BM P3, PCAL ####[address] [place] [address] Neutrophils 2.3 1.8-7.0 10*3/uL Normal 06-28-2017 [facility] (92212) Comment: Performed By: #### HEMDF, BM P3, PCAL ####[address] [place] [address] Platelet mean volume (PMV) 9.9 7.4-10.4 fL Normal [facility] (61045) Comment: Performed By: #### HEMDF, BM P3, PCAL ####[place] [address] [place] [address] Platelets 76 140-440 10*3/uL Low 06-28-2017 [facility] (03932) Comment: Performed By: #### HEMDF, BM P3, PCAL ####[address] [place] [address] WBC (Leukocytes) 3.7 3.6-10.7 10*3/uL Normal 06-28-2017 [facility] (90859) Comment: Performed By: #### HEMDF, BM P3, PCAL ####[place] [address] [place] [address] comp metabolic panel on 2017-06-28 Alanine aminotransferase (ALT) 99 12-78 U/L High 06-28-[address] [facility] (13582) Comment: Performed By: #### HEMDF, BM P3, PCAL ####[place] [address] [place] [address] Albumin 3.1 3.4-5.0 g/dL Low 06-28-2017 [facility] (21397) Comment: Performed By: #### HEMDF, BM P3, PCAL ####[place] [address] [place] [address] Alkaline phosphatase (ALP) 318 45-117 U/L High [facility] (43422) Comment: Performed By: #### HEMDF, BM P3, PCAL ####[place] [address] [place] [address] Anion gap 16 mmol/L Normal 06-28-2017 [facility] (17434) Comment: Performed By: #### HEMDF, BM P3, PCAL ####[place] [address] [place] [address] Aspartate aminotransferase (AST) 79 15-37 U/L High 06-28-[address] [facility] (63326) Comment: Performed By: #### HEMDF, BM P3, PCAL ####[place] [address] [place] [address] Bilirubin (total) 0.5 0.2-1.0 mg/dL Normal 06-28-2017 [facility] (15953) Comment: Performed By: #### HEMDF, BM P3, PCAL ####[place] [address] [place] [address] Calcium 8.8 8.2-10.1 mg/dL Normal 06-28-2017 [facility] (24539) Comment: Performed By: #### HEMDF, BM P3, PCAL ####[place] [address] [place] [address] Chloride 103 98-109 mmol/L Normal 06-28-2017 [facility] (97328) Comment: Performed By: #### HEMDF, BM P3, PCAL ####[place] [address] [place] [address] CO2 24 21-32 mmol/L Normal 06-28-2017 [facility] (32835) Comment: Performed By: #### HEMDF, BM P3, PCAL ####[place] [address] [place] [address] Creatinine 0.99 0.55-1.40 mg/dL Normal 06-28-2017 [facility] (82418) Comment: Performed By: #### HEMDF, BM P3, PCAL ####[place] [address] [place] [address] eGFR (black) >60.0 >60 mL/min/{1.73_m2} Normal 06-28-[address] [facility] (15926) Comment: Performed By: #### HEMDF, BM P3, PCAL ####[place] [address] [place] [address] eGFR (non-black) >60.0 >60 mL/min/{1.73_m2} Normal [address] [facility] (70241) Comment: Result Comment: Source- MDRD equation with creatinine calibration to IDMS(NKDEP)eGFR not recommen ded for drug dose adjustment Performed By: #### HEMDF, BM P3, PCAL ####[place] [address] [place] [address] Glucose mass conc 236 70-100 mg/dL High 06-28-2017 [facility] (19703) Comment: Performed By: #### HEMDF, BM P3, PCAL ####[place] [address] [place] [address] Potassium molar conc 3.9 3.5-5.1 mmol/L Normal [address] [facility] (58407) Comment: Performed By: #### HEMDF, BM P3, PCAL ####[place] [address] [place] [address] Protein 7.0 6.4-8.2 g/dL Normal 06-28-2017 [facility] (92330) Comment: Performed By: #### HEMDF, BM P3, PCAL ####[place] [address] [place] [address] Sodium 143 135-145 mmol/L Normal 06-28-2017 [facility] (76380) Comment: Performed By: #### HEMDF, BM P3, PCAL ####[place] [address] [place] [address] Urea nitrogen 15 7-25 mg/dL Normal 06-28-[address] [facility] (80708) Comment: Performed By: #### HEMDF, BM P3, PCAL ####[address] [address] ck on 2017-06-28 Creatine kinase (CK) 279 39-308 U/L Normal 06-28-[address] [facility] (87972) Comment: Performed By: #### HEMDF, BM P3, PCAL ####[place] [address] [place] [address] c-reactive protein on 2017-06-28 C reactive protein (CRP) 5.1 0.0-2.9 mg/L High 06-[address] [facility] (12172) Comment: Result Comment: . Performed By: #### HEMDF, BM P3, PCAL ####[address] [address] xa special angiography procedure on 2017-06-16 XA Special Angiography Patient Name: TG, Normal 06-16-2017 [facility] Procedure [facility] ([id number]) Special Procedures Exam Date/Time 06/14/2017 14:20:00 EDT Exam XA Special Angiography Procedure Ordering Physician CECE MARINO Accession Number [id number] Reason For Exam tunnel dialysis catheter removal finished with dialysis Report CLINICAL HISTORY: Dialysis catheter no longer needed Procedures: Right internal jugular tunneled dialysis catheter removal Physician: Dr. Ruelas MEDICATIONS: None EBL: Minimal. Contrast: None. Specimen sent: None COMPLICATIONS: None Procedural details: All of the risk, benefits, and alternative treatments were explained to the patient and informed consent was obtained and documented. The patient was brought into the waiting room and placed in a sitting position. The patient's existing right-sided tunneled dialysis catheter and surrounding skin were prepped and draped in the usual sterile fashion. The catheter cuff was then removed in its entirety. Hemostasis was obtained using manual pressure. The patient tolerated the procedure well. Findings: Right-sided tunneled dialysis catheter removed in its entirety. IMPRESSION: Successful uncomplicated right tunneled dialysis catheter removal. Report Dictated on Final Dictated: 06/16/2017 10:41 am Dictating Physician: MD RUELAS KEVIN Signed Date and Time: 06/16/2017 10:43 am Signed by: MD RUELAS KEVIN Transcribed Date and Time: 06/16/2017 10:41 vancomycin on 06-06 Vancomycin 27.4 15.0-20.0 ug/mL High 06-06-2017 [facility] ([id number]) Comment: Result Comment: . Performed By: #### HEMDF, BM P3, PCAL ####[address] [place] [address] hemogram w/ autodiff on 2017-06-06 Abs Baso Cnt 0.0 0.0-0.2 10*3/uL Normal 06-06-[address] [facility] ([id number]) Comment: Performed By: #### HEMDF, BM P3, PCAL ####[address] [address] Basophils/100 WBC Auto (Bld) 0.3 % Normal 0 06-06-[address] [facility] ([id number]) Comment: Performed By: #### HEMDF, BM P3, PCAL ####[address] [place] [address] Eosinophils 0.1 0.0-0.5 10*3/uL Normal 06-06-2017 [facility] ([id number]) Comment: Performed By: #### HEMDF, BM P3, PCAL ####[address] [place] [address] Eosinophils/100 leukocytes 2.5 % Normal [facility] ([id number]) Comment: Performed By: #### HEMDF, BM P3, PCAL ####[address] [place] [address] Erythrocyte distribution 15.8 11.5-14.5 % High 06-[address] [facility] width Auto Ratio (RBC) ([id number]) Comment: Performed By: #### HEMDF, BM P3, PCAL ####[address] [place] [address] Erythrocytes (RBC) 2.02 4.40-5.90 10*6/uL Low 06-06-[address] [facility] ([id number]) Comment: Performed By: #### HEMDF, BM P3, PCAL ####[address] [place] [address] Granulocytes/100 WBC (Bld) 60.7 % Normal [facility] (82375) Comment: Performed By: #### HEMDF, BM P3, PCAL ####[address] [place] [address] Hematocrit (HCT) 20.7 40.0-52.0 % Low 06-06-2017 [facility] ([id number]) Comment: Performed By: #### HEMDF, BM P3, PCAL ####[address] [place] [address] Hemoglobin mass conc (Bld) 7.0 13.0-18.0 g/dL Low [facility] (51314) Comment: Performed By: #### HEMDF, BM P3, PCAL ####[address] [place] [address] Lymphocytes 1.1 1.0-4.3 10*3/uL Normal 06-06-2017 [facility] (56747) Comment: Performed By: #### HEMDF, BM P3, PCAL ####[address] [place] [address] Lymphocytes/100 leukocytes 26.9 % Normal [facility] (34192) Comment: Performed By: #### HEMDF, BM P3, PCAL ####[address] [place] [address] MCH 34.7 26.0-34.0 pg High 06-06-2017 [facility] ([id number]) Comment: Performed By: #### HEMDF, BM P3, PCAL ####[address] [place] [address] MCHC mass conc (RBC) 33.8 32.0-36.0 % Normal [address] [facility] (85561) Comment: Performed By: #### HEMDF, BM P3, PCAL ####[address] [address] MCV 102.5 80.0-98.0 fL High 06-06-2017 [facility] ([id number]) Comment: Performed By: #### HEMDF, BM P3, PCAL ####[address] [address] Monocytes 0.4 0.0-0.8 10*3/uL Normal 06-06-2017 [facility] (48558) Comment: Performed By: #### HEMDF, BM P3, PCAL ####[address] [address] Monocytes/100 leukocytes 9.6 % Normal 06-[address] [facility] ([id number]) Comment: Performed By: #### HEMDF, BM P3, PCAL ####[place] [address] Neutrophils 2.6 1.8-7.0 10*3/uL Normal 06-06-2017 [facility] (71381) Comment: Performed By: #### HEMDF, BM P3, PCAL ####[address] [address] Platelet mean volume (PMV) 8.6 7.4-10.4 fL Normal [facility] (95853) Comment: Performed By: #### HEMDF, BM P3, PCAL ####[address] [address] Platelets 97 140-440 10*3/uL Low 06-06-2017 [facility] ([id number]) Comment: Performed By: #### HEMDF, BM P3, PCAL ####[address] [address] WBC (Leukocytes) 4.3 3.6-10.7 10*3/uL Normal 06-06-2017 [facility] ([id number]) Comment: Performed By: #### HEMDF, BM P3, PCAL ####[address] [place] [address] glucose,bedside on 2017-06-06 Glucose mass conc 140 70-100 mg/dL High 06-06-2017 [facility] (45029) Comment: Result Comment: Test perform ed by glucose meter. Results may be 10%-15% lowerthan serum/plasma value s. (CLIA ID [id number]) Performed By: #### HEMDF, BM P3, PCAL ####[address] [place] [address] Glucose mass conc 147 70-100 mg/dL High 06-06-2017 [facility] (91907) Comment: Result Comment: Test perform ed by glucose meter. Results may be 10%-15% lowerthan serum/plasma value s. (CLIA ID [id number]) Performed By: #### HEMDF, BM P3, PCAL ####[address] [place] [address] Glucose mass conc 120 70-100 mg/dL High 06-06-2017 [facility] (82506) Comment: Result Comment: Test perform ed by glucose meter. Results may be 10%-15% lowerthan serum/plasma value s. (CLIA ID [id number]) Performed By: #### HEMDF, BM P3, PCAL ####[address] [place] [address] basic metabolic panel on 2017-06-06 Creatinine 5.57 0.55-1.40 mg/dL High 06-06-2017 [facility] (72915) Comment: Performed By: #### HEMDF, BM P3, PCAL ####[address] [place] [address] eGFR (black) 12.7 >60 mL/min Normal 06-06-[address] [facility] (77497) Comment: Performed By: #### HEMDF, BM P3, PCAL ####[address] [place] [address] eGFR (non-black) 10.5 >60 mL/min Normal 06-06-2017 [facility] (16780) Comment: Result Comment: Source- MDRD equation with creatinine calibration to IDMS(NKDEP)eGFR not recommen ded for drug dose adjustment Performed By: #### HEMDF, BM P3, PCAL ####[address] [place] [address] Anion gap 9 mmol/L Normal 06-06-2017 [facility] ([id number]) Comment: Performed By: #### HEMDF, BM P3, PCAL ####[address] [place] [address] CO2 28 21-32 mmol/L Normal 06-06-2017 [facility] (48875) Comment: Performed By: #### HEMDF, BM P3, PCAL ####[address] [place] [address] Glucose mass conc 120 70-100 mg/dL High 06-06-2017 [facility] (15311) Comment: Performed By: #### HEMDF, BM P3, PCAL ####[address] [place] [address] Urea nitrogen 35 7-25 mg/dL High 06-06-[address] [facility] (02141) Comment: Performed By: #### HEMDF, BM P3, PCAL ####[address] [place] [address] Calcium 8.3 8.2-10.1 mg/dL Normal 06-06-2017 [facility] (34619) Comment: Performed By: #### HEMDF, BM P3, PCAL ####[address] [place] [address] Chloride 103 98-109 mmol/L Normal 06-06-2017 [facility] (85325) Comment: Performed By: #### HEMDF, BM P3, PCAL ####[address] [address] Potassium molar conc 3.7 3.5-5.1 mmol/L Normal [address] [facility] (60428) Comment: Performed By: #### HEMDF, BM P3, PCAL ####[address] [place] [address] Sodium 140 135-145 mmol/L Normal 06-06-2017 [facility] (14865) Comment: Performed By: #### HEMDF, BM P3, PCAL ####[address] [place] [address] glucose,bedside on 2017-06-05 Glucose mass conc 149 70-100 mg/dL High 06-05-2017 [facility] (55586) Comment: Result Comment: Test perform ed by glucose meter. Results may be 10%-15% lowerthan serum/plasma value s. (CLIA ID [id number]) Performed By: #### HEMDF, BM P3, PCAL ####[address] [place] [address] Glucose mass conc 108 70-100 mg/dL High 06-05-2017 [facility] (01686) Comment: Result Comment: Test perform ed by glucose meter. Results may be 10%-15% lowerthan serum/plasma value s. (CLIA ID [id number]) Performed By: #### HEMDF, BM P3, PCAL ####[address] [place] [address] basic metabolic panel on 2017-06-05 Creatinine 4.87 0.55-1.40 mg/dL High 06-05-2017 [facility] ([id number]) Comment: Performed By: #### HEMDF, BM P3, PCAL ####[address] [place] [address] eGFR (black) 14.9 >60 mL/min Normal 06-05-[address] [facility] (43698) Comment: Performed By: #### HEMDF, BM P3, PCAL ####[address] [place] [address] eGFR (non-black) 12.3 >60 mL/min Normal 06-05-2017 [facility] (31366) Comment: Result Comment: Source- MDRD equation with creatinine calibration to IDMS(NKDEP)eGFR not recommen ded for drug dose adjustment Performed By: #### HEMDF, BM P3, PCAL ####[address] [place] [address] Anion gap 8 mmol/L Normal 06-05-2017 [facility] (86447) Comment: Performed By: #### HEMDF, BM P3, PCAL ####[address] [place] [address] Glucose mass conc 100 70-100 mg/dL Normal 06-05-2017 [facility] (24985) Comment: Performed By: #### HEMDF, BM P3, PCAL ####[address] [place] [address] Urea nitrogen 25 7-25 mg/dL Normal 06-05-[address] [facility] (95206) Comment: Performed By: #### HEMDF, BM P3, PCAL ####[address] [place] [address] Calcium 8.3 8.2-10.1 mg/dL Normal 06-05-2017 [facility] (90037) Comment: Performed By: #### HEMDF, BM P3, PCAL ####[address] [place] [address] CO2 27 21-32 mmol/L Normal 06-05-2017 [facility] (78218) Comment: Performed By: #### HEMDF, BM P3, PCAL ####[address] [place] [address] Chloride 105 98-109 mmol/L Normal 06-05-2017 [facility] (03630) Comment: Performed By: #### HEMDF, BM P3, PCAL ####[address] [place] [address] Potassium molar conc 3.9 3.5-5.1 mmol/L Normal 7 [facility] (44514) Comment: Performed By: #### HEMDF, BM P3, PCAL ####[address] [place] [address] Sodium 140 135-145 mmol/L Normal 06-05-2017 [facility] ([id number]) Comment: Performed By: #### HEMDF, BM P3, PCAL ####[id number] vancomycin on 06-04 Vancomycin 40.3 15.0-20.0 ug/mL High 06-04-2017 [facility] (70405) Comment: Result Comment: . Performed By: #### HEMDF, BM P3, PCAL ####[place] [address] iron on 2017-06-04 Iron, Total 55 65-175 ug/dL Low 06-04-2017 [facility] (32493) Comment: Performed By: #### HEMDF, BM P3, PCAL ####[place] [address] Saturation 31 15-50 % Normal 06-04-2017 [facility] ([id number]) Comment: Performed By: #### HEMDF, BM P3, PCAL ####[place] [address] Total Iron Binding Cap. 177 250-450 ug/dL Low 2016 [facility] ([id number]) Comment: Performed By: #### HEMDF, BM P3, PCAL ####[place] [address] hemogram w/ autodiff on 2017-06-04 Abs Baso Cnt 0.0 0.0-0.2 10*3/uL Normal 06-04-2017 [facility] ([id number]) Comment: Performed By: #### HEMDF, BM P3, PCAL ####[place] [address] Basophils/100 WBC Auto (Bld) 0.4 % Normal 0 06-04-2017 [facility] ([id number]) Comment: Performed By: #### HEMDF, BM P3, PCAL ####[place] [address] Eosinophils 0.1 0.0-0.5 10*3/uL Normal 06-04-2017 [facility] (53046) Comment: Performed By: #### HEMDF, BM P3, PCAL ####[address] [place] [address] Eosinophils/100 leukocytes 2.1 % Normal [facility] (28704) Comment: Performed By: #### HEMDF, BM P3, PCAL ####[address] [place] [address] Erythrocyte distribution 16.2 11.5-14.5 % High 06-[address] [facility] width Auto Ratio (RBC) (00688) Comment: Performed By: #### HEMDF, BM P3, PCAL ####[address] [place] [address] Erythrocytes (RBC) 2.16 4.40-5.90 10*6/uL Low 06-04-[address] [facility] (64430) Comment: Performed By: #### HEMDF, BM P3, PCAL ####[address] [place] [address] Granulocytes/100 WBC (Bld) 62.7 % Normal [facility] (19750) Comment: Performed By: #### HEMDF, BM P3, PCAL ####[address] [place] [address] Hematocrit (HCT) 21.8 40.0-52.0 % Low 06-04-2017 [facility] (99640) Comment: Performed By: #### HEMDF, BM P3, PCAL ####[address] [place] [address] Hemoglobin mass conc (Bld) 7.5 13.0-18.0 g/dL Low [facility] (42976) Comment: Performed By: #### HEMDF, BM P3, PCAL ####[address] [place] [address] Lymphocytes 1.1 1.0-4.3 10*3/uL Normal 06-04-2017 [facility] (65604) Comment: Performed By: #### HEMDF, BM P3, PCAL ####[address] [place] [address] Lymphocytes/100 leukocytes 24.6 % Normal [facility] (92269) Comment: Performed By: #### HEMDF, BM P3, PCAL ####[address] [place] [address] MCH 34.9 26.0-34.0 pg High 06-04-2017 [facility] ([id number]) Comment: Performed By: #### HEMDF, BM P3, PCAL ####[address] [place] [address] MCHC mass conc (RBC) 34.4 32.0-36.0 % Normal [address] [facility] (74602) Comment: Performed By: #### HEMDF, BM P3, PCAL ####[address] [place] [address] MCV 101.3 80.0-98.0 fL High 06-04-2017 [facility] (67782) Comment: Performed By: #### HEMDF, BM P3, PCAL ####[address] [place] [address] Monocytes 0.4 0.0-0.8 10*3/uL Normal 06-04-2017 [facility] (69143) Comment: Performed By: #### HEMDF, BM P3, PCAL ####[address] [place] [address] Monocytes/100 leukocytes 10.2 % Normal 06-[address] [facility] (48745) Comment: Performed By: #### HEMDF, BM P3, PCAL ####[address] [place] [address] Neutrophils 2.8 1.8-7.0 10*3/uL Normal 06-04-2017 [facility] (16542) Comment: Performed By: #### HEMDF, BM P3, PCAL ####[address] [place] [address] Platelet mean volume (PMV) 8.8 7.4-10.4 fL Normal [facility] (20978) Comment: Performed By: #### HEMDF, BM P3, PCAL ####[id number] [place] [address] Platelets 91 140-440 10*3/uL Low 06-04-2017 [facility] (77659) Comment: Performed By: #### HEMDF, BM P3, PCAL ####[address] [place] [address] WBC (Leukocytes) 4.4 3.6-10.7 10*3/uL Normal 06-04-2017 [facility] (81838) Comment: Performed By: #### HEMDF, BM P3, PCAL ####[address] [place] [address] glucose,bedside on 2017-06-04 Glucose mass conc 144 70-100 mg/dL High 06-04-2017 [facility] (87871) Comment: Result Comment: Test perform ed by glucose meter. Results may be 10%-15% lowerthan serum/plasma value s. (CLIA ID [id number]) Performed By: #### HEMDF, BM P3, PCAL ####[address] [place] [address] Glucose mass conc 128 70-100 mg/dL High 06-04-2017 [facility] (03867) Comment: Result Comment: Test perform ed by glucose meter. Results may be 10%-15% lowerthan serum/plasma value s. (CLIA ID [id number]) Performed By: #### HEMDF, BM P3, PCAL ####[address] [place] [address] Glucose mass conc 185 70-100 mg/dL High 06-04-2017 [facility] (41928) Comment: Result Comment: Test perform ed by glucose meter. Results may be 10%-15% lowerthan serum/plasma value s. (CLIA ID [id number]) Performed By: #### HEMDF, BM P3, PCAL ####[address] [place] [address] basic metabolic panel on 2017-06-04 Creatinine 3.67 0.55-1.40 mg/dL High 06-04-2017 [facility] ([id number]) Comment: Performed By: #### HEMDF, BM P3, PCAL ####[address] [place] [address] eGFR (black) 20.6 >60 mL/min Normal 06-04-[address] [facility] (86525) Comment: Performed By: #### HEMDF, BM P3, PCAL ####[address] [place] [address] eGFR (non-black) 17.0 >60 mL/min Normal 06-04-2017 [facility] (55093) Comment: Result Comment: Source- MDRD equation with creatinine calibration to IDMS(NKDEP)eGFR not recommen ded for drug dose adjustment Performed By: #### HEMDF, BM P3, PCAL ####[address] [place] [address] Anion gap 7 mmol/L Normal 06-04-2017 [facility] (06138) Comment: Performed By: #### HEMDF, BM P3, PCAL ####[address] [place] [address] CO2 29 21-32 mmol/L Normal 06-04-2017 [facility] (15215) Comment: Performed By: #### HEMDF, BM P3, PCAL ####[address] [place] [address] Glucose mass conc 91 70-100 mg/dL Normal 06-04-2017 [facility] (94128) Comment: Performed By: #### HEMDF, BM P3, PCAL ####[address] [place] [address] Urea nitrogen 18 7-25 mg/dL Normal 06-04-[address] [facility] ([id number]) Comment: Performed By: #### HEMDF, BM P3, PCAL ####[address] [place] [address] Calcium 8.5 8.2-10.1 mg/dL Normal 06-04-2017 [facility] (68721) Comment: Performed By: #### HEMDF, BM P3, PCAL ####[address] [place] [address] Chloride 104 98-109 mmol/L Normal 06-04-2017 [facility] (10625) Comment: Performed By: #### HEMDF, BM P3, PCAL ####[address] [place] [address] Potassium molar conc 4.0 3.5-5.1 mmol/L Normal [address] [facility] (35285) Comment: Performed By: #### HEMDF, BM P3, PCAL ####[address] [place] [address] Sodium 140 135-145 mmol/L Normal 06-04-2017 [facility] (77987) Comment: Performed By: #### HEMDF, BM P3, PCAL ####[address] [place] [address] iron on 2017-06-03 Saturation 22 15-50 % Normal 06-03-2017 [facility] (97834) Comment: Performed By: #### HEMDF, BM P3, PCAL ####[address] [place] [address] Total Iron Binding Cap. 181 250-450 ug/dL Low [address] [facility] (17701) Comment: Performed By: #### HEMDF, BM P3, PCAL ####[address] [place] [address] Iron, Total 40 65-175 ug/dL Low 06-03-2017 [facility] (72636) Comment: Performed By: #### HEMDF, BM P3, PCAL ####[address] [place] [address] glucose,bedside on 2017-06-03 Glucose mass conc 125 70-100 mg/dL High 06-03-2017 [facility] (00770) Comment: Result Comment: Test perform ed by glucose meter. Results may be 10%-15% lowerthan serum/plasma value s. (CLIA ID [id number]) Performed By: #### HEMDF, BM P3, PCAL ####[id number] [place] [address] Glucose mass conc 202 70-100 mg/dL High 06-03-2017 [facility] (22268) Comment: Result Comment: Test perform ed by glucose meter. Results may be 10%-15% lowerthan serum/plasma value s. (CLIA ID [id number]) Performed By: #### HEMDF, BM P3, PCAL ####[address] [place] [address] Glucose mass conc 122 70-100 mg/dL High 06-03-2017 [facility] (61481) Comment: Result Comment: Test perform ed by glucose meter. Results may be 10%-15% lowerthan serum/plasma value s. (CLIA ID [id number]) Performed By: #### HEMDF, BM P3, PCAL ####[address] [place] [address] eosinophils,ur on Eosinophils Urine NO EOSINS SEEN Normal [address] [facility] (00502) Comment: Performed By: #### HEMDF, BM P3, PCAL ####[address] [place] [address] Epithelial Cells,Ur RARE Normal 06-03-[address] [facility] (11202) Comment: Performed By: #### HEMDF, BM P3, PCAL ####[address] [place] [address] PMNS Ur FEW Normal 06-03-2017 [facility] (01263) Comment: Performed By: #### HEMDF, BM P3, PCAL ####[address] [place] [address] basic metabolic panel on 2017-06-03 Urea nitrogen 25 7-25 mg/dL Normal 06-03-[address] [facility] (85744) Comment: Performed By: #### HEMDF, BM P3, PCAL ####[address] [place] [address] Anion gap 7 mmol/L Normal 06-03-2017 [facility] (13178) Comment: Performed By: #### HEMDF, BM P3, PCAL ####[address] [place] [address] Creatinine 4.20 0.55-1.40 mg/dL High 06-03-2017 [facility] (78961) Comment: Performed By: #### HEMDF, BM P3, PCAL ####[address] [place] [address] eGFR (black) 17.6 >60 mL/min Normal 06-03-[address] [facility] (14612) Comment: Performed By: #### HEMDF, BM P3, PCAL ####[address] [place] [address] eGFR (non-black) 14.6 >60 mL/min Normal 06-03-2017 [facility] (16193) Comment: Result Comment: Source- MDRD equation with creatinine calibration to IDMS(NKDEP)eGFR not recommen ded for drug dose adjustment Performed By: #### HEMDF, BM P3, PCAL ####[address] [place] [address] Glucose mass conc 136 70-100 mg/dL High 06-03-2017 [facility] (41673) Comment: Performed By: #### HEMDF, BM P3, PCAL ####[address] [place] [address] Calcium 8.0 8.2-10.1 mg/dL Low 06-03-2017 [facility] (81399) Comment: Performed By: #### HEMDF, BM P3, PCAL ####[address] [place] [address] Chloride 104 98-109 mmol/L Normal 06-03-2017 [facility] (77571) Comment: Performed By: #### HEMDF, BM P3, PCAL ####[address] [place] [address] Potassium molar conc 4.3 3.5-5.1 mmol/L Normal [address] [facility] (77837) Comment: Performed By: #### HEMDF, BM P3, PCAL ####[id number] [place] [address] Sodium 137 135-145 mmol/L Normal 06-03-2017 [facility] (58045) Comment: Performed By: #### HEMDF, BM P3, PCAL ####[id number] [place] [address] CO2 26 21-32 mmol/L Normal 06-03-2017 [facility] ([id number]) Comment: Performed By: #### HEMDF, BM P3, PCAL ####[address] [place] [address] glucose,bedside on 2017-06-02 Glucose mass conc 147 70-100 mg/dL High 06-02-2017 [facility] (62181) Comment: Result Comment: Test perform ed by glucose meter. Results may be 10%-15% lowerthan serum/plasma value s. (CLIA ID [id number]) Performed By: #### HEMDF, BM P3, PCAL ####[address] [place] [address] Glucose mass conc 135 70-100 mg/dL High 06-02-[address] [facility] (32765) Comment: Result Comment: Test perform ed by glucose meter. Results may be 10%-15% lowerthan serum/plasma value s. (CLIA ID [id number]) Performed By: #### HEMDF, BM P3, PCAL ####[address] [place] [address] Glucose mass conc 125 70-100 mg/dL High 06-02-[address] [facility] (39053) Comment: Result Comment: Test perform ed by glucose meter. Results may be 10%-15% lowerthan serum/plasma value s. (CLIA ID [id number]) Performed By: #### HEMDF, BM P3, PCAL ####[id number] [place] [address] Glucose mass conc 133 70-100 mg/dL High 06-02-[address] [facility] (64631) Comment: Result Comment: Test perform ed by glucose meter. Results may be 10%-15% lowerthan serum/plasma value s. (CLIA ID [id number]) Performed By: #### HEMDF, BM P3, PCAL ####[address] [place] [address] Glucose mass conc 164 70-100 mg/dL High 06-02-2017 [facility] (02892) Comment: Result Comment: Test perform ed by glucose meter. Results may be 10%-15% lowerthan serum/plasma value s. (CLIA ID [id number]) Performed By: #### TSGL #### [address] [place] [address] basic metabolic panel on 2017-06-02 Creatinine 5.62 0.55-1.40 mg/dL High 06-02-2017 [facility] (62838) Comment: Performed By: #### TSGL #### [address] [place] [address] eGFR (black) 12.6 >60 mL/min Normal 06-02-[address] [facility] (91969) Comment: Performed By: #### TSGL #### [address] [place] [address] eGFR (non-black) 10.4 >60 mL/min Normal 06-02-2017 [facility] [facility] ([id number]) Comment: Result Comment: Source- MDRD equation with creatinine calibration to IDMS(NKDEP)eGFR not recommen ded for drug dose adjustment Performed By: #### TSGL #### [address] [place] [address] Anion gap 7 mmol/L Normal 06-02-2017 [facility] ([id number]) Comment: Performed By: #### TSGL #### [address] [place] [address] Calcium 8.2 8.2-10.1 mg/dL Normal 06-02-2017 [facility] ([id number]) Comment: Performed By: #### TSGL #### [address] [place] [address] CO2 24 21-32 mmol/L Normal 06-02-2017 [facility] ([id number]) Comment: Performed By: #### TSGL #### [address] [place] [address] Glucose mass conc 104 70-100 mg/dL High 06-02-2017 [facility] (93498) Comment: Performed By: #### TSGL #### [address] [place] [address] Urea nitrogen 33 7-25 mg/dL High 06-02-[address] [facility] ([id number]) Comment: Performed By: #### TSGL #### [address] [place] [address] Chloride 107 98-109 mmol/L Normal 06-02-2017 [facility] ([id number]) Comment: Performed By: #### TSGL #### [address] [place] [address] Potassium molar conc 4.7 3.5-5.1 mmol/L Normal [address] [place] [address] ([id number]) Comment: Performed By: #### TSGL #### [address] [place] [address] Sodium 138 135-145 mmol/L Normal 06-02-2017 [facility] (65582) Comment: Performed By: #### TSGL #### [address] [place] [address] xa special angiography procedure on 2017-06-01 XA Special Patient Name: TG, Normal 7 [facility] Angiography Procedure BECKY FIN: System ([id number]) [id number] Special Procedures Exam Date/Time 06/01/2017 12:49:03 EDT Exam XA Special Angiography Procedure Ordering Physician MD DEONNA, [facility] Accession Number [id number] Reason For Exam tunnel dialysis catheter, initiating hd Report CLINICAL HISTORY: Renal failure. PROCEDURE: Fluoroscopic and ultrasound-guided right tunneled dialysis catheter placement. Physicians: Dr. Gregory. MEDICATIONS: Local lidocaine EBL: Minimal. Specimen sent: None. Complications None. Fluoroscopy time: 0.1 Angiographic runs: 0 Fluoroscopic spot images: 0 Fluoroscopic saved images were obtained. These images do NOT add additional exposure to ionizing radiation and were captured electronically from the imaging chain. Procedural details: All of the risks, benefits, alternatives of the procedure were explained to the patient and all of the patient's questions were answered. The patient was brought into the interventional radiology suite and placed supine on the table. A timeout was performed. The patient's right internal jugular vein was interrogated with ultrasound and found to be widely patent. A permanent ultrasound image was stored to the patient's record. The patient's right neck and chest were prepped and draped in the usual sterile fashion. Maximal sterile barrier technique was utilized. All elements of maximal sterile barrier technique including a mask, hat, sterile gown, sterile gloves, and large sterile sheet were utilized. 2% Chlorhexidine antiseptic was utilized for skin sterilization. Sterile ultrasound gel and a sterile ultrasound probe cover were also used. The subcutaneous tissues were anesthetized using 2 percent lidocaine. Under direct ultrasound visualization, a 21-gauge micropuncture needle was advanced into the right internal jugular vein. A 0.018 micro puncture wire was then advanced through the needle and into the IVC under fluoroscopic guidance. A spot image was obtained. This was upsized to a 0.035 J-wire. Attention was then directed to the patient's right chest. A subcutaneous tract was created in the right chest to the venotomy site after subcutaneous anesthesia using 2 percent lidocaine. A 19 cm tip to cuff Cuco dialysis catheter was then pulled through the tunnel and out the venotomy site. A peel-away sheath was then advanced over the wire into the central circulation after serial dilatation. The catheter was placed through the peel-away sheath. Postplacement imaging showed proper positioning of the tunneled dialysis catheter with the tip terminating in the proximal right atrium. Both lumens of the catheter flushed and aspirated appropriately. The catheter was then sutured to the patient's skin using 2-0 silk suture. The venotomy site was closed using 3-0 Vicryl as well a skin glue. The patient tolerated the procedure well. FINDINGS: Tip of tunneled dialysis catheter terminates within the proximal right atrium. IMPRESSION: Successful uncomplicated ultrasound and fluoroscopic guided placement of a 19 cm tip to cuff right sided tunneled dialysis catheter. The catheter is ready for immediate use. The sutures should not be removed for two weeks. The patient was then transferred to recovery in stable condition. Report Dictated on Final Dictated: 06/01/2017 2:45 pm Dictating Physician: MD GREGORY YUN ROBERT Signed Date and Time: 06/01/2017 2:47 pm Signed by: MD GREGORY YUN ROBERT Transcribed Date and Time: 06/01/2017 2:45 hep b surface ag on 2017-06-01 Hep B Surface Ag NOT DETECTED Not-Detected Normal [address] [facility] ([id number]) Comment: Performed By: #### TSGL #### [address] [place] [address] glucose,bedside on 2017-06-01 Glucose mass conc 90 70-100 mg/dL Normal 06-01-2017 [facility] (22020) Comment: Result Comment: Test perform ed by glucose meter. Results may be 10%-15% lowerthan serum/plasma value s. (CLIA ID [id number]) Performed By: #### TSGL #### [address] [place] [address] Glucose mass conc 90 70-100 mg/dL Normal 06-01-2017 [facility] (68627) Comment: Result Comment: Test perform ed by glucose meter. Results may be 10%-15% lowerthan serum/plasma value s. (CLIA ID [id number]) Performed By: #### TSGL #### [address] [place] [address] basic metabolic panel on 2017-06-01 Anion gap 9 mmol/L Normal 06-01-2017 [facility] (95030) Comment: Performed By: #### TSGL #### [address] [place] [address] Creatinine 6.80 0.55-1.40 mg/dL High 06-01-2017 [facility] (23467) Comment: Performed By: #### TSGL #### [address] [place] [address] eGFR (black) 10.1 >60 mL/min Normal 06-01-[address] [facility] (43841) Comment: Performed By: #### TSGL #### [address] [place] [address] eGFR (non-black) 8.3 >60 mL/min Normal 06-01-2017 [facility] (57923) Comment: Result Comment: Source- MDRD equation with creatinine calibration to IDMS(NKDEP)eGFR not recommen ded for drug dose adjustment Performed By: #### TSGL #### [address] [place] [address] Urea nitrogen 37 7-25 mg/dL High 06-01-[address] [facility] (73151) Comment: Performed By: #### TSGL #### [address] [place] [address] Calcium 8.6 8.2-10.1 mg/dL Normal 06-01-2017 [facility] (16802) Comment: Performed By: #### TSGL #### [address] [place] [address] CO2 21 21-32 mmol/L Normal 06-01-2017 [facility] (65698) Comment: Performed By: #### TSGL #### [address] [place] [address] Glucose mass conc 88 70-100 mg/dL Normal 06-01-2017 [facility] (69817) Comment: Performed By: #### TSGL #### [address] [place] [address] Chloride 107 98-109 mmol/L Normal 06-01-2017 [facility] (55905) Comment: Performed By: #### TSGL #### [address] [place] [address] Potassium molar conc 5.0 3.5-5.1 mmol/L Normal [address] [facility] (45386) Comment: Performed By: #### TSGL #### [address] [place] [address] Sodium 137 135-145 mmol/L Normal 06-01-2017 [facility] (60287) Comment: Performed By: #### TSGL #### [address] [place] [address] us paracentesis on 2017-05-31 US Paracentesis Patient Name: BECKY HUTCHISON 05-31-[address] [facility] FIN: ( [id number]) [id number] Ultrasound Exam Date/Time 05/31/2017 13:45:17 EDT Exam US Paracentesis Initial Ordering Physician MD DEONNA, [facility] Accession Number [id number] CPT4 Codes 50626 () Reason For Exam ASCITES Report ULTRASOUND GUIDED PARACENTESIS: CLINICAL INDICATION: Ascites TECHNIQUE: Following discussion with the patient regarding risks, benefits and alternatives along with audible timeout to identify the patient, site and nature of the procedure, the skin was sterilely prepared and local anesthesia was applied. A 5 Amharic Yueh catheter was advanced under ultrasound guidance into the peritoneal cavity within the right side of the abdomen near the axillary line. A total of 1.5 L yellow fluid was aspirated. The patient tolerated procedure well. Report Dictated on Final Dictated: 05/31/2017 2:08 pm Dictating Physician: ELENITA ANDRADE Signed Date and Time: 05/31/2017 2:08 pm Signed by: ELENITA ANDRADE Transcribed Date and Time: 05/31/2017 2:08 prothrombin time on 2017-05-31 INR Coag RelTime (PPP) 1.1 0.9-1.1 {INR} Normal [address] [facility] (56500) Comment: Result Comment: Recommended Anticoagulant Therapy:SEE BELOW----- INR of 2.0 - 3.0 :- Prophylaxis of Veno us Thrombosis (high-risk surgery)- Treatment of Venous Thrombosis- Treatment of Pulmonary Embolism (Includes tissue heartvalves, Acute Myocardia l Infarction to prevent systemicembolism, Valvular Heart Disease, and Atrial Fibrillation)----- INR of 2.5 - 3.5 :- Mechanical Prosthetic Valves (high risk)- If oral anticoagulant therapy is used to preventMyocardial In farction Performed By: #### HEMDF, BM P3 ####[address] [place] [address] Prothrombin time (PT) Coag 11.4 9.0-12.0 s Normal [facility] time (PPP) (68831) Comment: Result Comment: . Performed By: #### HEMDF, BM P3 ####[address] [place] [address] glucose,bedside on 2017-05-31 Glucose mass conc 95 70-100 mg/dL Normal 05-31-2017 [facility] (59979) Comment: Result Comment: Confirmation Drawn;Test performed by glucose meter. Results may be 10%-15% lowerthan ser um/plasma values. (CLIA ID [id number]) Performed By: #### TSGL #### [address] [place] [address] Glucose mass conc 111 70-100 mg/dL High 05-31-2017 [facility] (94082) Comment: Result Comment: Test perform ed by glucose meter. Results may be 10%-15% lowerthan serum/plasma value s. (CLIA ID [id number]) Performed By: #### TSGL #### [address] [place] [address] Glucose mass conc 119 70-100 mg/dL High 05-31-2017 [facility] (22639) Comment: Result Comment: Test perform ed by glucose meter. Results may be 10%-15% lowerthan serum/plasma value s. (CLIA ID [id number]) Performed By: #### HEMDF, BM P3 ####[address] [place] [address] Glucose mass conc 104 70-100 mg/dL High 05-31-2017 [facility] (95510) Comment: Result Comment: Test perform ed by glucose meter. Results may be 10%-15% lowerthan serum/plasma value s. (CLIA ID [id number]) Performed By: #### HEMDF, BM P3 ####[address] [place] [address] basic metabolic panel on 2017-05-31 Anion gap 10 mmol/L Normal 05-31-2017 [facility] (07027) Comment: Performed By: #### HEMDF, BM P3 ####[address] [place] [address] Creatinine 6.61 0.55-1.40 mg/dL High 05-31-2017 [facility] (57472) Comment: Performed By: #### HEMDF, BM P3 ####[address] [place] [address] eGFR (black) 10.5 >60 mL/min Normal 05-31-[address] [facility] (95952) Comment: Performed By: #### HEMDF, BM P3 ####[address] [place] [address] eGFR (non-black) 8.6 >60 mL/min Normal 05-31-2017 [facility] (99627) Comment: Result Comment: Source- MDRD equation with creatinine calibration to IDMS(NKDEP)eGFR not recommen ded for drug dose adjustment Performed By: #### HEMDF, BM P3 ####[address] [place] [address] Glucose mass conc 81 70-100 mg/dL Normal 05-31-2017 [facility] (24490) Comment: Performed By: #### HEMDF, BM P3 ####[address] [place] [address] Urea nitrogen 36 7-25 mg/dL High 05-31-[address] [facility] (40912) Comment: Performed By: #### HEMDF, BM P3 ####[address] [place] [address] Calcium 8.3 8.2-10.1 mg/dL Normal 05-31-2017 [facility] (41893) Comment: Performed By: #### HEMDF, BM P3 ####[address] [place] [address] Chloride 110 98-109 mmol/L High 05-31-2017 [facility] (74846) Comment: Performed By: #### HEMDF, BM P3 ####[id number] [place] [address] Potassium molar conc 4.9 3.5-5.1 mmol/L Normal 7 [facility] (22082) Comment: Performed By: #### HEMDF, BM P3 ####[address] [place] [address] Sodium 142 135-145 mmol/L Normal 05-31-2017 [facility] (67921) Comment: Performed By: #### HEMDF, BM P3 ####[address] [place] [address] CO2 22 21-32 mmol/L Normal 05-31-2017 [facility] (87377) Comment: Performed By: #### HEMDF, BM P3 ####[address] [place] [address] vancomycin on 05-30 Vancomycin 92.7 15.0-20.0 ug/mL High 05-30-2017 [facility] (88351) Comment: Result Comment: . Performed By: #### HEMDF, BM P3 ####[address] [place] [address] glucose,bedside on 2017-05-30 Glucose mass conc 196 70-100 mg/dL High 05-30-2017 [facility] (76531) Comment: Result Comment: Test perform ed by glucose meter. Results may be 10%-15% lowerthan serum/plasma value s. (CLIA ID [id number]) Performed By: #### HEMDF, BM P3 ####[address] [place] [address] Glucose mass conc 165 70-100 mg/dL High 05-30-[address] [facility] (50327) Comment: Result Comment: Test perform ed by glucose meter. Results may be 10%-15% lowerthan serum/plasma value s. (CLIA ID [id number]) Performed By: #### HEMDF, BM P3 ####[address] [place] [address] Glucose mass conc 128 70-100 mg/dL High 05-30-2017 [facility] (10182) Comment: Result Comment: Test perform ed by glucose meter. Results may be 10%-15% lowerthan serum/plasma value s. (CLIA ID [id number]) Performed By: #### HEMDF, BM P3 ####[address] [place] [address] Glucose mass conc 91 70-100 mg/dL Normal 05-30-2017 [facility] (35039) Comment: Result Comment: Test perform ed by glucose meter. Results may be 10%-15% lowerthan serum/plasma value s. (CLIA ID [id number]) Performed By: #### HEMDF, BM P3 ####[address] [place] [address] Glucose mass conc 118 70-100 mg/dL High 05-30-2017 [facility] (55357) Comment: Result Comment: Test perform ed by glucose meter. Results may be 10%-15% lowerthan serum/plasma value s. (CLIA ID [id number]) Performed By: #### HEMDF, BM P3 ####[address] [place] [address] basic metabolic panel on 2017-05-30 Anion gap 11 mmol/L Normal 05-30-2017 [facility] (83167) Comment: Performed By: #### HEMDF, BM P3 ####[address] [place] [address] Creatinine 5.59 0.55-1.40 mg/dL High 05-30-2017 [facility] (61639) Comment: Performed By: #### HEMDF, BM P3 ####[address] [place] [address] eGFR (black) 12.7 >60 mL/min Normal 05-30-[address] [facility] (73785) Comment: Performed By: #### HEMDF, BM P3 ####[address] [place] [address] eGFR (non-black) 10.5 >60 mL/min Normal 05-30-2017 [facility] (84929) Comment: Result Comment: Source- MDRD equation with creatinine calibration to IDMS(NKDEP)eGFR not recommen ded for drug dose adjustment Performed By: #### FABRICE ALVA P3 ####[place] [address] [place] [address] CO2 19 21-32 mmol/L Low 05-30-2017 [facility] (37753) Comment: Performed By: #### FABRICE ALVA P3 ####[address] [place] [address] Glucose mass conc 78 70-100 mg/dL Normal 05-30-2017 [facility] (22800) Comment: Performed By: #### FABRICE ALVA P3 ####[address] [place] [address] Urea nitrogen 34 7-25 mg/dL High 05-30-[address] [facility] (69584) Comment: Performed By: #### FABRICE ALVA P3 ####[address] [place] [address] Calcium 7.6 8.2-10.1 mg/dL Low 05-30-2017 [facility] (78785) Comment: Performed By: #### FABRICE ALVA P3 ####[address] [place] [address] Chloride 111 98-109 mmol/L High 05-30-2017 [facility] (49516) Comment: Performed By: #### NIDA BM P3 ####[address] [place] [address] Potassium molar conc 4.6 3.5-5.1 mmol/L Normal 7 [facility] [employer] [facility] (36890) Comment: Performed By: #### NIDA BM P3 ####[address] [place] [address] Sodium 141 135-145 mmol/L Normal 05-30-2017 [facility] (80615) Comment: Performed By: #### NIDA BM P3 ####[address] [place] [address] vancomycin on 05-29 Vancomycin 106.3 15.0-20.0 ug/mL High 05-29-2017 [facility] [employer] [facility] (60334) Comment: Result Comment: . Performed By: #### HEMDF, BM P3 ####[id number] [place] [address] us retroperitoneal complete on 2017-05-29 US Retroperitoneal Patient Name: TG, Normal 0 05-29-2017 [facility] ([id number]) Ultrasound Exam Date/Time 05/29/2017 19:53:39 EDT Exam US Retroperitoneal Complete Ordering Physician MD YARY, VIANEY Peña Accession Number [id number] CPT4 Codes 58151 () Reason For Exam RENAL FAILURE, ACUTE (KIDNEY INJURY) Report HISTORY: Acute renal failure. Sonographic images of the bilateral kidneys and bladder were obtained. Comparisons available: None. FINDINGS: The right kidney measures 13.9 x 6.2 x 5.5. Parenchymal echotexture is normal. No focal lesions are seen. There is no evidence of hydronephrosis or renal calculus. The overall echogenicity appears slightly increased suggesting possible medical renal disease. The left kidney measures 13.3 x 6.8 x 7.2. Parenchymal echotexture is normal. No focal lesions are seen. There is no evidence of hydronephrosis or renal calculus. The overall echogenicity appears slightly increased suggesting possible medical renal disease Ascites are noted surrounding the liver and the spleen. The spleen is enlarged measuring 19.7 cm in greatest dimension. The bladder is grossly unremarkable. IMPRESSION: Question of increased echogenicity of the renal cortices suggesting possible medical renal disease. Ascites. Splenomegaly. Report Dictated on Final Dictated: 05/29/2017 9:03 pm Dictating Physician: MD VILLASENOR TOM A Signed Date and Time: 05/29/2017 9:05 pm Signed by: MD VILLASENOR TOM A Transcribed Date and Time: 05/29/2017 9:03 lactic acid on 2016 Lactate 1.2 0.4-2.0 mmol/L Normal 05-29-2017 [facility] (64916) Comment: Performed By: #### HEMRADHA, BM P3 ####[address] [place] [address] hemogram w/ autodiff on 2017-05-29 Abs Baso Cnt 0.0 0.0-0.2 10*3/uL Normal 05-29-2017 [facility] (36668) Comment: Performed By: #### HEMDF, BM P3 ####[address] [place] [address] Basophils/100 WBC Auto (Bld) 0.2 % Normal 0 05-29-2017 [facility] (14863) Comment: Performed By: #### HEMRADHA BM P3 ####[address] [place] [address] Eosinophils 0.1 0.0-0.5 10*3/uL Normal 05-29-2017 [facility] (06068) Comment: Performed By: #### HEMDF, BM P3 ####[address] [place] [address] Eosinophils/100 leukocytes 1.1 % Normal [facility] (19468) Comment: Performed By: #### HEMRADHA BM P3 ####[address] [address] Erythrocyte distribution 15.8 11.5-14.5 % High 05-[address] [facility] width Auto Ratio (RBC) (46993) Comment: Performed By: #### HEMDF, BM P3 ####[address] [place] [address] Erythrocytes (RBC) 2.04 4.40-5.90 10*6/uL Low 05-29-2017 [facility] (94583) Comment: Performed By: #### HEMDF, BM P3 ####[address] [place] [address] Granulocytes/100 WBC (Bld) 66.5 % Normal [facility] (43408) Comment: Performed By: #### HEMDF, BM P3 ####[address] [place] [address] Hematocrit (HCT) 20.7 40.0-52.0 % Low 05-29-2017 [facility] (69768) Comment: Performed By: #### FABRICE ALVA P3 ####[address] [place] [address] Hemoglobin mass conc (Bld) 7.1 13.0-18.0 g/dL Low [facility] (97793) Comment: Performed By: #### FABIRCE ALVA P3 ####[address] [place] [address] Lymphocytes 1.1 1.0-4.3 10*3/uL Normal 05-29-2017 [facility] (60459) Comment: Performed By: #### FABRICE ALVA P3 ####[address] [address] Lymphocytes/100 leukocytes 20.4 % Normal [facility] (08149) Comment: Performed By: #### FABRICE ALVA P3 ####[address] [place] [address] MCH 34.6 26.0-34.0 pg High 05-29-2017 [facility] (46886) Comment: Performed By: #### FABRICE ALVA P3 ####[address] [place] [address] MCHC mass conc (RBC) 34.1 32.0-36.0 % Normal [address] [facility] (79090) Comment: Performed By: #### NIDA BM P3 ####[address] [place] [address] MCV 101.4 80.0-98.0 fL High 05-29-2017 [facility] (23934) Comment: Performed By: #### FABRICE ALVA P3 ####[address] [place] [address] Monocytes 0.7 0.0-0.8 10*3/uL Normal 05-29-2017 [facility] (67835) Comment: Performed By: #### FABRICE ALVA P3 ####[place] [address] [place] [address] Monocytes/100 leukocytes 11.8 % Normal 05-[address] [facility] (79264) Comment: Performed By: #### HEMDF, BM P3 ####[place] [address] [place] [address] Neutrophils 3.7 1.8-7.0 10*3/uL Normal 05-29-2017 [facility] (93984) Comment: Performed By: #### HEMDF, BM P3 ####[address] [place] [address] Platelet mean volume (PMV) 9.3 7.4-10.4 fL Normal [facility] (85874) Comment: Performed By: #### HEMRADHA, BM P3 ####[address] [place] [address] Platelets 102 140-440 10*3/uL Low 05-29-2017 [facility] (92112) Comment: Performed By: #### HEMDF, BM P3 ####[place] [address] [place] [address] WBC (Leukocytes) 5.6 3.6-10.7 10*3/uL Normal 05-29-2017 [facility] (46004) Comment: Performed By: #### HEMDF, BM P3 ####[address] [place] [address] glucose,bedside on 2017-05-29 Glucose mass conc 212 70-100 mg/dL High 05-29-2017 [facility] (21388) Comment: Result Comment: Test perform ed by glucose meter. Results may be 10%-15% lowerthan serum/plasma value s. (CLIA ID [id number]) Performed By: #### HEMDF, BM P3 ####[address] [place] [address] Glucose mass conc 131 70-100 mg/dL High 05-29-2017 [facility] (16447) Comment: Result Comment: Test perform ed by glucose meter. Results may be 10%-15% lowerthan serum/plasma value s. (CLIA ID [id number]) Performed By: #### HEMDF, BM P3 ####[address] [place] [address] Glucose mass conc 156 70-100 mg/dL High 05-29-2017 [facility] ([id number]) Comment: Result Comment: Test perform ed by glucose meter. Results may be 10%-15% lowerthan serum/plasma value s. (CLIA ID [id number]) Performed By: #### HEMDF, BM P3 ####[address] [place] [address] Glucose mass conc 129 70-100 mg/dL High 05-29-2017 [facility] (27936) Comment: Result Comment: Test perform ed by glucose meter. Results may be 10%-15% lowerthan serum/plasma value s. (CLIA ID [id number]) Performed By: #### HEMDF, BM P3 ####[address] [place] [address] basic metabolic panel on 2017-05-29 Anion gap 6 mmol/L Normal 05-29-2017 [facility] ([id number]) Comment: Performed By: #### HEMRADHA BM P3 ####[address] [place] [address] Creatinine 5.61 0.55-1.40 mg/dL High 05-29-2017 [facility] (35993) Comment: Performed By: #### HEMDF, BM P3 ####[address] [place] [address] eGFR (black) 12.6 >60 mL/min Normal 05-29-[address] [facility] (15530) Comment: Performed By: #### HEMDF, BM P3 ####[address] [place] [address] eGFR (non-black) 10.4 >60 mL/min Normal 05-29-2017 [facility] (68412) Comment: Result Comment: Source- MDRD equation with creatinine calibration to IDMS(NKDEP)eGFR not recommen ded for drug dose adjustment Performed By: #### HEMRADHA BM P3 ####[id number] [place] [address] CO2 24 21-32 mmol/L Normal 05-29-2017 [facility] (53397) Comment: Performed By: #### HEMRADHA BM P3 ####[address] [place] [address] Glucose mass conc 116 70-100 mg/dL High 05-29-2017 [facility] (82562) Comment: Performed By: #### HEMRADHA BM P3 ####[address] [place] [address] Urea nitrogen 30 7-25 mg/dL High 05-29-[address] [facility] ([id number]) Comment: Performed By: #### HEMRADHA BM P3 ####[address] [place] [address] Calcium 8.3 8.2-10.1 mg/dL Normal 05-29-2017 [facility] (43209) Comment: Performed By: #### HEMRADHA BM P3 ####[address] [place] [address] Chloride 103 98-109 mmol/L Normal 05-29-2017 [facility] (09649) Comment: Performed By: #### HEMRADHA BM P3 ####[address] [place] [address] Potassium molar conc 4.4 3.5-5.1 mmol/L Normal [address] [facility] (54867) Comment: Performed By: #### HEMRADHA BM P3 ####[address] [place] [address] Sodium 133 135-145 mmol/L Low 05-29-2017 [facility] (38458) Comment: Performed By: #### HEMRADHA BM P3 ####[address] [place] [address] urinalysis,macro on 2017-05-28 Bilirubin (direct) NEG Negative mg/dL Normal 05-28-[address] [facility] (31820) Comment: Performed By: #### BGLU #### [id number] [place] [address] Ketone,Urine NEG Negative Normal 05-28-[address] [facility] (71902) Comment: Performed By: #### BGLU #### [id number] [place] [address] Occult Blood,Ur NEG Negative Normal 05-28-2017 [facility] (65380) Comment: Performed By: #### BGLU #### [id number] [place] [address] Specific [place],Urine 1.005 1.005-1.030 Normal 05-[address] [facility] (31548) Comment: Performed By: #### BGLU #### [address] [place] [address] Total Protein,Urine NEG Negative Normal 05-28-[address] [facility] (31726) Comment: Performed By: #### BGLU #### [address] [place] [address] Urine, appearance clear Clear Normal 05-28-2017 [facility] (02692) Comment: Performed By: #### BGLU #### [id number] [place] [address] Urine, color yellow Lt. Yellow Normal 05-28-[address] [facility] (75806) Comment: Performed By: #### BGLU #### [address] [place] [address] Urine, glucose presence NORM Negative Normal [address] [facility] (61227) Comment: Performed By: #### BGLU #### [id number] [place] [address] Urine, nitrite presence NEG Negative Normal [address] [facility] (79990) Comment: Performed By: #### BGLU #### [id number] [place] [address] Urine, pH 5.0 5.0-8.0 [pH] Normal 05-28-2017 [facility] (65629) Comment: Performed By: #### BGLU #### [address] [address] Urine, urobilinogen NORM 0-1 Normal 05-28-[address] [facility] (68152) Comment: Performed By: #### BGLU #### [address] [address] WBC (Leukocytes) NEG Negative 10*3/uL Normal 05-28-2017 [facility] (32701) Comment: Performed By: #### BGLU #### [address] [address] troponin i on 05-28 Troponin I.cardiac < 0.015 0.000-0.045 ng/mL Normal [address] [facility] mass conc (42843) Comment: Result Comment: 0.046 - 0.40 0 = Indeterminate> 0.400 = Consider Myocardial Injury Performed By: #### BGLU #### [address] [address] sodium, ur random o n 2017-05-28 Sodium 21 No Range mmol/L Normal 05-28-2017 [facility] (05498) Comment: Performed By: #### BGLU #### [address] [address] protein, ur random on 2017-05-28 Protein, Ur Random 9 No Range mg/dL Normal 05-28-[address] [facility] (10580) Comment: Performed By: #### BGLU #### [address] [address] hemogram w/ autodiff on 2017-05-28 Abs Baso Cnt 0.0 0.0-0.2 10*3/uL Normal 05-28-[address] [facility] (19349) Comment: Performed By: #### BGLU #### [address] [address] Basophils/100 WBC Auto (Bld) 0.3 % Normal 0 05-28-[address] [facility] (72358) Comment: Performed By: #### BGLU #### [address] [address] Eosinophils 0.1 0.0-0.5 10*3/uL Normal 05-28-2017 [facility] (44857) Comment: Performed By: #### BGLU #### [address] [address] Eosinophils/100 leukocytes 0.8 % Normal [facility] (49234) Comment: Performed By: #### BGLU #### [address] [address] Erythrocyte distribution 15.9 11.5-14.5 % High 05-[address] [facility] width Auto Ratio (RBC) (14286) Comment: Performed By: #### BGLU #### [address] [address] Erythrocytes (RBC) 2.17 4.40-5.90 10*6/uL Low 05-28-[address] [facility] (66495) Comment: Performed By: #### BGLU #### [address] [address] Granulocytes/100 WBC (Bld) 76.3 % Normal [facility] (97594) Comment: Performed By: #### BGLU #### [address] [address] Hematocrit (HCT) 21.6 40.0-52.0 % Low 05-28-2017 [facility] (73930) Comment: Performed By: #### BGLU #### [address] [address] Hemoglobin mass conc (Bld) 7.6 13.0-18.0 g/dL Low [facility] (17300) Comment: Performed By: #### BGLU #### [address] [address] Lymphocytes 0.9 1.0-4.3 10*3/uL Low 05-28-2017 [facility] (40394) Comment: Performed By: #### BGLU #### [address] [address] Lymphocytes/100 leukocytes 14.3 % Normal [facility] (58991) Comment: Performed By: #### BGLU #### [address] [place] [address] MCH 34.9 26.0-34.0 pg High 05-28-2017 [facility] (33755) Comment: Performed By: #### BGLU #### [address] [place] [address] MCHC mass conc (RBC) 35.0 32.0-36.0 % Normal 7 [facility] (11650) Comment: Performed By: #### BGLU #### [address] [place] [address] MCV 99.6 80.0-98.0 fL High 05-28-2017 [facility] (65637) Comment: Performed By: #### BGLU #### [address] [place] [address] Monocytes 0.5 0.0-0.8 10*3/uL Normal 05-28-2017 [facility] (88690) Comment: Performed By: #### BGLU #### [address] [place] [address] Monocytes/100 leukocytes 8.3 % Normal 05-[address] [facility] (69777) Comment: Performed By: #### BGLU #### [address] [place] [address] Neutrophils 5.0 1.8-7.0 10*3/uL Normal 05-28-2017 [facility] (58774) Comment: Performed By: #### BGLU #### [address] [place] [address] Platelet mean volume (PMV) 9.0 7.4-10.4 fL Normal [facility] (17820) Comment: Performed By: #### BGLU #### [address] [place] [address] Platelets 107 140-440 10*3/uL Low 05-28-2017 [facility] (71519) Comment: Performed By: #### BGLU #### [address] [place] [address] WBC (Leukocytes) 6.6 3.6-10.7 10*3/uL Normal 05-28-2017 [facility] (34430) Comment: Performed By: #### BGLU #### [address] [place] [address] hemoglobin a1c on 2 Glucose mass conc 105 mg/dL Normal 05-28-2017 [facility] (57553) Comment: Performed By: #### BGLU #### [address] [place] [address] Hemoglobin A1c/Hemoglobin.total 5.3 4.0-5.6 % Normal 05-28-[address] [facility] mass fraction (Bld) (50865) Comment: Result Comment: --HgbA1C lev els may not be accurate in patients who haverenal disease, received recent blood transfusions, are anemic,or who have dyshemoglobinemia. Performed By: #### BGLU #### [address] [place] [address] glucose,bedside on 2017-05-28 Glucose mass conc 144 70-100 mg/dL High 05-28-2017 [facility] (88269) Comment: Result Comment: Test perform ed by glucose meter. Results may be 10%-15% lowerthan serum/plasma value s. (CLIA ID [id number]) Performed By: #### BGLU #### [address] [place] [id number] Glucose mass conc 92 70-100 mg/dL Normal 05-28-2017 [facility] (20041) Comment: Result Comment: Test perform ed by glucose meter. Results may be 10%-15% lowerthan serum/plasma value s. (CLIA ID [id number]) Performed By: #### BGLU #### [address] [place] [address] creatinine, ur random on 2017-05-28 Creatinine 23.9 No Range mg/dL Normal 05-28-2017 [facility] (40304) Comment: Performed By: #### BGLU #### [address] [place] [address] comp metabolic panel on 2017-05-28 Alkaline phosphatase (ALP) 229 45-117 U/L High [facility] (01172) Comment: Performed By: #### BGLU #### [address] [place] [address] Protein 6.3 6.4-8.2 g/dL Low 05-28-2017 [facility] (28510) Comment: Performed By: #### BGLU #### [address] [place] [address] Bilirubin (total) 0.9 0.2-1.0 mg/dL Normal 05-28-2017 [facility] (84274) Comment: Performed By: #### BGLU #### [address] [place] [address] Alanine aminotransferase (ALT) 23 12-78 U/L Normal 05-28-[address] [facility] (07911) Comment: Performed By: #### BGLU #### [address] [place] [address] Aspartate aminotransferase (AST) 29 15-37 U/L Normal 05-28-[address] [facility] (98875) Comment: Performed By: #### BGLU #### [address] [place] [address] Creatinine 5.36 0.55-1.40 mg/dL High 05-28-2017 [facility] (61292) Comment: Performed By: #### BGLU #### [address] [place] [address] eGFR (black) 13.3 >60 mL/min Normal 05-28-[address] [facility] (68943) Comment: Performed By: #### BGLU #### [address] [place] [address] eGFR (non-black) 11.0 >60 mL/min Normal 05-28-2017 [facility] (60175) Comment: Result Comment: Source- MDRD equation with creatinine calibration to IDMS(NKDEP)eGFR not recommen ded for drug dose adjustment Performed By: #### BGLU #### [address] [place] [address] Anion gap 13 mmol/L Normal 05-28-2017 [facility] (99050) Comment: Performed By: #### BGLU #### [address] [place] [address] Glucose mass conc 128 70-100 mg/dL High 05-28-2017 [facility] (45662) Comment: Performed By: #### BGLU #### [address] [place] [address] CO2 21 21-32 mmol/L Normal 05-28-2017 [facility] (99041) Comment: Performed By: #### BGLU #### [address] [place] [address] Albumin 2.3 3.4-5.0 g/dL Low 05-28-2017 [facility] (27312) Comment: Performed By: #### BGLU #### [address] [place] [address] Calcium 8.4 8.2-10.1 mg/dL Normal 05-28-2017 [facility] (41925) Comment: Performed By: #### BGLU #### [address] [place] [address] Urea nitrogen 29 7-25 mg/dL High 05-28-[address] [facility] (22896) Comment: Performed By: #### BGLU #### [address] [place] [address] Chloride 100 98-109 mmol/L Normal 05-28-2017 [facility] (83840) Comment: Performed By: #### BGLU #### [address] [place] [address] Potassium molar conc 4.6 3.5-5.1 mmol/L Normal 7 [facility] (16891) Comment: Performed By: #### BGLU #### [address] [place] [address] Sodium 134 135-145 mmol/L Low 05-28-2017 [facility] (01715) Comment: Performed By: #### BGLU #### [address] [place] [address] hemogram w/ autodiff on 2017-05-22 Abs Baso Cnt 0.0 0.0-0.2 10*3/uL Normal 05-22-[address] [facility] (69958) Comment: Performed By: #### BGLU #### [address] [place] [address] Basophils/100 WBC Auto (Bld) 0.3 % Normal 0 05-22-[address] [facility] (61648) Comment: Performed By: #### BGLU #### [address] [place] [address] Eosinophils 0.2 0.0-0.5 10*3/uL Normal 05-22-2017 [facility] (77294) Comment: Performed By: #### BGLU #### [address] [place] [address] Eosinophils/100 leukocytes 2.6 % Normal [facility] (96298) Comment: Performed By: #### BGLU #### [address] [place] [address] Erythrocyte distribution 15.0 11.5-14.5 % High 05-[address] [facility] width Auto Ratio (RBC) (05133) Comment: Performed By: #### BGLU #### [address] [place] [address] Erythrocytes (RBC) 2.22 4.40-5.90 10*6/uL Low 05-22-[address] [facility] (00547) Comment: Performed By: #### BGLU #### [address] [place] [address] Granulocytes/100 WBC (Bld) 65.6 % Normal [facility] (56524) Comment: Performed By: #### BGLU #### [address] [place] [address] Hematocrit (HCT) 22.0 40.0-52.0 % Low 05-22-2017 [facility] (51735) Comment: Performed By: #### BGLU #### [address] [place] [address] Hemoglobin mass conc (Bld) 7.8 13.0-18.0 g/dL Low [facility] (93914) Comment: Performed By: #### BGLU #### [address] [place] [address] Lymphocytes 1.4 1.0-4.3 10*3/uL Normal 05-22-2017 [facility] (87175) Comment: Performed By: #### BGLU #### [address] [place] [address] Lymphocytes/100 leukocytes 22.6 % Normal [facility] (12347) Comment: Performed By: #### BGLU #### [address] [place] [address] MCH 35.1 26.0-34.0 pg High 05-22-2017 [facility] (01415) Comment: Performed By: #### BGLU #### [address] [place] [address] MCHC mass conc (RBC) 35.3 32.0-36.0 % Normal [address] [facility] (98585) Comment: Performed By: #### BGLU #### [address] [place] [address] MCV 99.5 80.0-98.0 fL High 05-22-2017 [facility] (11735) Comment: Performed By: #### BGLU #### [address] [place] [address] Monocytes 0.5 0.0-0.8 10*3/uL Normal 05-22-2017 [facility] (86120) Comment: Performed By: #### BGLU #### [address] [place] [address] Monocytes/100 leukocytes 8.9 % Normal 05-[address] [facility] (74289) Comment: Performed By: #### BGLU #### [place] [address] [place] [address] Neutrophils 4.1 1.8-7.0 10*3/uL Normal 05-22-2017 [facility] (41337) Comment: Performed By: #### BGLU #### [address] [place] [address] Platelet mean volume (PMV) 8.4 7.4-10.4 fL Normal [facility] (09413) Comment: Performed By: #### BGLU #### [address] [place] [address] Platelets 109 140-440 10*3/uL Low 05-22-2017 [facility] (62353) Comment: Performed By: #### BGLU #### [address] [place] [address] WBC (Leukocytes) 6.2 3.6-10.7 10*3/uL Normal 05-22-2017 [facility] (83249) Comment: Performed By: #### BGLU #### [address] [place] [address] glucose,bedside on 2017-05-22 Glucose mass conc 123 70-100 mg/dL High 05-22-2017 [facility] (36784) Comment: Result Comment: Test perform ed by glucose meter. Results may be 10%-15% lowerthan serum/plasma value s. (CLIA ID [id number]) Performed By: #### BGLU #### [address] [place] [address] Glucose mass conc 134 70-100 mg/dL High 05-22-2017 [facility] (80099) Comment: Result Comment: Test perform ed by glucose meter. Results may be 10%-15% lowerthan serum/plasma value s. (CLIA ID [id number]) Performed By: #### BGLU #### [address] [place] [address] basic metabolic panel on 2017-05-22 Anion gap 7 mmol/L Normal 05-22-2017 [facility] (33696) Comment: Performed By: #### BGLU #### [address] [place] [address] Creatinine 0.49 0.55-1.40 mg/dL Low 05-22-2017 [facility] (36447) Comment: Performed By: #### BGLU #### [address] [place] [address] eGFR (black) >60.0 >60 mL/min/{1.73_m2} Normal 05-22-[address] [facility] (44092) Comment: Performed By: #### BGLU #### [address] [place] [address] eGFR (non-black) >60.0 >60 mL/min/{1.73_m2} Normal [address] [facility] (26285) Comment: Result Comment: Source- MDRD equation with creatinine calibration to IDMS(NKDEP)eGFR not recommen ded for drug dose adjustment Performed By: #### BGLU #### [address] [place] [address] Glucose mass conc 139 70-100 mg/dL High 05-22-2017 [facility] (32975) Comment: Performed By: #### BGLU #### [address] [place] [address] Urea nitrogen 4 7-25 mg/dL Low 05-22-[address] [facility] (77873) Comment: Performed By: #### BGLU #### [address] [place] [address] Calcium 7.7 8.2-10.1 mg/dL Low 05-22-2017 [facility] (58594) Comment: Performed By: #### BGLU #### [address] [place] [address] CO2 28 21-32 mmol/L Normal 05-22-2017 [facility] (03842) Comment: Performed By: #### BGLU #### [address] [address] Chloride 100 98-109 mmol/L Normal 05-22-2017 [facility] (42751) Comment: Performed By: #### BGLU #### [address] [address] Potassium molar conc 3.1 3.5-5.1 mmol/L Low 7 [facility] (29095) Comment: Performed By: #### BGLU #### [place] [address] Sodium 135 135-145 mmol/L Normal 05-22-2017 [facility] (74772) Comment: Performed By: #### BGLU #### [place] [id number] hemogram w/ autodiff on 2017-05-21 Abs Baso Cnt 0.1 0.0-0.2 10*3/uL Normal 05-21-2017 [facility] (20475) Comment: Performed By: #### BGLU #### [address] [address] Basophils/100 WBC Auto (Bld) 0.8 % Normal 0 05-21-[address] [facility] (73593) Comment: Performed By: #### BGLU #### [address] [address] Eosinophils 0.2 0.0-0.5 10*3/uL Normal 05-21-2017 [facility] (51991) Comment: Performed By: #### BGLU #### [address] [address] Eosinophils/100 leukocytes 1.9 % Normal [facility] (86791) Comment: Performed By: #### BGLU #### [address] [address] Erythrocyte distribution 15.8 11.5-14.5 % High 05-[address] [facility] width Auto Ratio (RBC) (75618) Comment: Performed By: #### BGLU #### [address] [address] Erythrocytes (RBC) 2.32 4.40-5.90 10*6/uL Low 05-21-[address] [facility] (97087) Comment: Performed By: #### BGLU #### [address] [address] Granulocytes/100 WBC (Bld) 68.4 % Normal [facility] (63920) Comment: Performed By: #### BGLU #### [address] [address] Hematocrit (HCT) 23.5 40.0-52.0 % Low 05-21-2017 [facility] (95773) Comment: Performed By: #### BGLU #### [address] [address] Hemoglobin mass conc (Bld) 8.2 13.0-18.0 g/dL Low [facility] (50057) Comment: Performed By: #### BGLU #### [address] [address] Lymphocytes 2.0 1.0-4.3 10*3/uL Normal 05-21-2017 [facility] (46064) Comment: Performed By: #### BGLU #### [address] [address] Lymphocytes/100 leukocytes 21.8 % Normal [facility] (99306) Comment: Performed By: #### BGLU #### [address] [address] MCH 35.2 26.0-34.0 pg High 05-21-2017 [facility] (46974) Comment: Performed By: #### BGLU #### [address] [address] MCHC mass conc (RBC) 34.8 32.0-36.0 % Normal [address] [facility] (80800) Comment: Performed By: #### BGLU #### [address] [place] [address] MCV 101.2 80.0-98.0 fL High 05-21-2017 [facility] (01985) Comment: Performed By: #### BGLU #### [address] [place] [address] Monocytes 0.6 0.0-0.8 10*3/uL Normal 05-21-2017 [facility] (90293) Comment: Performed By: #### BGLU #### [address] [place] [address] Monocytes/100 leukocytes 7.1 % Normal 05-[address] [facility] (66492) Comment: Performed By: #### BGLU #### [address] [place] [address] Neutrophils 6.1 1.8-7.0 10*3/uL Normal 05-21-2017 [facility] (71562) Comment: Performed By: #### BGLU #### [address] [place] [address] Platelet mean volume (PMV) 8.5 7.4-10.4 fL Normal [facility] (12764) Comment: Performed By: #### BGLU #### [address] [place] [address] Platelets 110 140-440 10*3/uL Low 05-21-2017 [facility] (05915) Comment: Performed By: #### BGLU #### [address] [place] [address] WBC (Leukocytes) 9.0 3.6-10.7 10*3/uL Normal 05-21-2017 [facility] (92065) Comment: Performed By: #### BGLU #### [address] [place] [address] glucose,bedside on 2017-05-21 Glucose mass conc 196 70-100 mg/dL High 05-21-2017 [facility] (56414) Comment: Result Comment: Test perform ed by glucose meter. Results may be 10%-15% lowerthan serum/plasma value s. (CLIA ID [id number]) Performed By: #### BGLU #### [address] [place] [address] Glucose mass conc 140 70-100 mg/dL High 05-21-2017 [facility] (05397) Comment: Result Comment: Test perform ed by glucose meter. Results may be 10%-15% lowerthan serum/plasma value s. (CLIA ID [id number]) Performed By: #### BGLU #### [address] [place] [address] Glucose mass conc 123 70-100 mg/dL High 05-21-2017 [facility] (38935) Comment: Result Comment: Test perform ed by glucose meter. Results may be 10%-15% lowerthan serum/plasma value s. (CLIA ID [id number]) Performed By: #### BGLU #### [address] [place] [address] basic metabolic panel on 2017-05-21 Anion gap 5 mmol/L Normal 05-21-2017 [facility] ([id number]) Comment: Performed By: #### BGLU #### [address] [place] [address] Creatinine 0.48 0.55-1.40 mg/dL Low 05-21-2017 [facility] (12635) Comment: Performed By: #### BGLU #### [address] [place] [address] eGFR (black) >60.0 >60 mL/min/{1.73_m2} Normal 05-21-[address] [facility] (03453) Comment: Performed By: #### BGLU #### [address] [place] [address] eGFR (non-black) >60.0 >60 mL/min/{1.73_m2} Normal [address] [facility] (83345) Comment: Result Comment: Source- MDRD equation with creatinine calibration to IDMS(NKDEP)eGFR not recommen ded for drug dose adjustment Performed By: #### BGLU #### [address] [place] [address] Glucose mass conc 112 70-100 mg/dL High 05-21-2017 [facility] (15898) Comment: Performed By: #### BGLU #### [address] [place] [address] Urea nitrogen 6 7-25 mg/dL Low 05-21-[address] [facility] (21042) Comment: Performed By: #### BGLU #### [address] [place] [address] Calcium 7.7 8.2-10.1 mg/dL Low 05-21-2017 [facility] (27953) Comment: Performed By: #### BGLU #### [address] [place] [address] CO2 28 21-32 mmol/L Normal 05-21-2017 [facility] (97936) Comment: Performed By: #### BGLU #### [address] [place] [address] Chloride 99 98-109 mmol/L Normal 05-21-2017 [facility] (76527) Comment: Performed By: #### BGLU #### [address] [place] [address] Potassium molar conc 3.5 3.5-5.1 mmol/L Normal [address] [facility] (61696) Comment: Performed By: #### BGLU #### [address] [place] [address] Sodium 132 135-145 mmol/L Low 05-21-2017 [facility] (79623) Comment: Performed By: #### BGLU #### [address] [place] [address] vancomycin trough o n 2017-05-20 Vancomycin Trough 9.1 15.0-20.0 ug/mL Low 05-20-2017 [facility] (71123) Comment: Result Comment: . Performed By: #### UAMAC ### [address] [place] [address] hemogram w/ autodiff on 2017-05-20 Abs Baso Cnt 0.0 0.0-0.2 10*3/uL Normal 05-20-2017 [facility] (40693) Comment: Performed By: #### UAMAC ### [address] [place] [address] Basophils/100 WBC Auto (Bld) 0.2 % Normal 0 05-20-2017 [facility] (16133) Comment: Performed By: #### UAMAC ### [address] [place] [address] Eosinophils 0.1 0.0-0.5 10*3/uL Normal 05-20-2017 [facility] (39757[facility] Comment: Performed By: #### UAMAC ### [address] [place] [address] Eosinophils/100 leukocytes 0.8 % Normal [facility] (65294) Comment: Performed By: #### UAMAC ### [address] [place] [address] Erythrocyte distribution 15.5 11.5-14.5 % High 05-[address] [facility] width Auto Ratio (RBC) (30929) Comment: Performed By: #### UAMAC ### [address] [place] [address] Erythrocytes (RBC) 2.34 4.40-5.90 10*6/uL Low 05-20-2017 [facility] (31417) Comment: Performed By: #### UAMAC ### [address] [place] [address] Granulocytes/100 WBC (Bld) 65.6 % Normal [facility] (09318) Comment: Performed By: #### UAMAC ### [address] [place] [id number] Hematocrit (HCT) 23.9 40.0-52.0 % Low 05-20-2017 [facility] (14944) Comment: Performed By: #### UAMAC ### [address] [address] Hemoglobin mass conc (Bld) 8.4 13.0-18.0 g/dL Low [facility] (03177) Comment: Performed By: #### UAMAC ### [address] [address] Lymphocytes 1.9 1.0-4.3 10*3/uL Normal 05-20-2017 [facility] (39582) Comment: Performed By: #### UAMAC ### [address] [address] Lymphocytes/100 leukocytes 23.6 % Normal [facility] (07361) Comment: Performed By: #### UAMAC ### [address] [address] MCH 35.8 26.0-34.0 pg High 05-20-2017 [facility] (80896) Comment: Performed By: #### UAMAC ### [address] [address] MCHC mass conc (RBC) 35.1 32.0-36.0 % Normal [address] [facility] (09607) Comment: Performed By: #### UAMAC ### [address] [address] MCV 101.9 80.0-98.0 fL High 05-20-2017 [facility] (45598) Comment: Performed By: #### UAMAC ### [address] [address] Monocytes 0.8 0.0-0.8 10*3/uL Normal 05-20-2017 [facility] (50504) Comment: Performed By: #### UAMAC ### [address] [address] Monocytes/100 leukocytes 9.8 % Normal 05-[address] [facility] (34381) Comment: Performed By: #### UAMAC ### [address] [place] [address] Neutrophils 5.3 1.8-7.0 10*3/uL Normal 05-20-2017 [facility] (36834) Comment: Performed By: #### UAMAC ### [address] [place] [address] Platelet mean volume (PMV) 8.9 7.4-10.4 fL Normal [facility] (64905) Comment: Performed By: #### UAMAC ### [address] [place] [address] Platelets 105 140-440 10*3/uL Low 05-20-2017 [facility] (88535) Comment: Performed By: #### UAMAC ### [address] [place] [address] WBC (Leukocytes) 8.1 3.6-10.7 10*3/uL Normal 05-20-2017 [facility] (44971) Comment: Performed By: #### UAMAC ### [address] [place] [address] glucose,bedside on 2017-05-20 Glucose mass conc 150 70-100 mg/dL High 05-20-2017 [facility] (78535) Comment: Result Comment: Test perform ed by glucose meter. Results may be 10%-15% lowerthan serum/plasma value s. (CLIA ID [id number]) Performed By: #### BGLU #### [address] [place] [address] Glucose mass conc 150 70-100 mg/dL High 05-20-2017 [facility] (46941) Comment: Result Comment: Test perform ed by glucose meter. Results may be 10%-15% lowerthan serum/plasma value s. (CLIA ID [id number]) Performed By: #### UAMAC ### #[address] [place] [address] Glucose mass conc 146 70-100 mg/dL High 05-20-2017 [facility] (29055) Comment: Result Comment: Test perform ed by glucose meter. Results may be 10%-15% lowerthan serum/plasma value s. (CLIA ID [id number]) Performed By: #### UAMAC ### [address] [place] [address] Glucose mass conc 115 70-100 mg/dL High 05-20-2017 [facility] (25988) Comment: Result Comment: Test perform ed by glucose meter. Results may be 10%-15% lowerthan serum/plasma value s. (CLIA ID [id number]) Performed By: #### UAMAC ### [address] [place] [id number] basic metabolic panel on 2017-05-20 Anion gap 7 mmol/L Normal 05-20-2017 [facility] (74929) Comment: Performed By: #### UAMAC ### #[address] [place] [address] Creatinine 0.35 0.55-1.40 mg/dL Low 05-20-2017 [facility] (28849) Comment: Performed By: #### UAMAC ### #[address] [place] [address] eGFR (black) >60.0 >60 mL/min/{1.73_m2} Normal 05-20-[address] [facility] (38702) Comment: Performed By: #### UAMAC ### [address] [place] [address] eGFR (non-black) >60.0 >60 mL/min/{1.73_m2} Normal [address] [facility] (14955) Comment: Result Comment: Source- MDRD equation with creatinine calibration to IDMS(NKDEP)eGFR not recommen ded for drug dose adjustment Performed By: #### UAMAC ### [address] [place] [id number] Glucose mass conc 117 70-100 mg/dL High 05-20-2017 [facility] (73097) Comment: Performed By: #### UAMAC ### #[address] [place] [address] Urea nitrogen 6 7-25 mg/dL Low 05-20-[address] [facility] (85441) Comment: Performed By: #### UAMAC ### #[address] [place] [address] Calcium 7.9 8.2-10.1 mg/dL Low 05-20-2017 [facility] (31739) Comment: Performed By: #### UAMAC ### #[address] [place] [address] CO2 26 21-32 mmol/L Normal 05-20-2017 [facility] (34055) Comment: Performed By: #### UAMAC ### #[address] [place] [address] Chloride 101 98-109 mmol/L Normal 05-20-2017 [facility] (28254) Comment: Performed By: #### UAMAC ### #[address] [place] [address] Potassium molar conc 3.7 3.5-5.1 mmol/L Normal [address] [facility] (12984) Comment: Performed By: #### UAMAC ### #[address] [place] [address] Sodium 134 135-145 mmol/L Low 05-20-2017 [facility] (40830) Comment: Performed By: #### UAMAC ### #[address] [place] [address] vancomycin trough o n 2017-05-19 Vancomycin Trough 10.0 15.0-20.0 ug/mL Low 05-19-2017 [facility] (94330) Comment: Result Comment: . Performed By: #### UAMAC ### #[address] [place] [address] hemogram w/ autodiff on 2017-05-19 Abs Baso Cnt 0.0 0.0-0.2 10*3/uL Normal 05-19-[address] [facility] (51508) Comment: Performed By: #### HEMDF, BM P3, PCAL ####[address] [address] Basophils/100 WBC Auto (Bld) 0.2 % Normal 0 05-19-[address] [facility] (77031) Comment: Performed By: #### HEMDF, BM P3, PCAL ####[address] [place] [address] Eosinophils 0.0 0.0-0.5 10*3/uL Normal 05-19-2017 [facility] (28876) Comment: Performed By: #### HEMDF, BM P3, PCAL ####[address] [address] Eosinophils/100 leukocytes 0.3 % Normal [facility] (17356) Comment: Performed By: #### HEMDF, BM P3, PCAL ####[address] [address] Erythrocyte distribution 15.1 11.5-14.5 % High 05-[address] [facility] width Auto Ratio (RBC) (33937) Comment: Performed By: #### HEMDF, BM P3, PCAL ####[address] [address] Erythrocytes (RBC) 2.40 4.40-5.90 10*6/uL Low 05-19-[address] [facility] (81163) Comment: Performed By: #### HEMDF, BM P3, PCAL ####[address] [address] Granulocytes/100 WBC (Bld) 70.1 % Normal [facility] (23069) Comment: Performed By: #### HEMDF, BM P3, PCAL ####[address] [address] Hematocrit (HCT) 23.9 40.0-52.0 % Low 05-19-2017 [facility] (79649) Comment: Performed By: #### HEMDF, BM P3, PCAL ####[address] [place] [address] Hemoglobin mass conc (Bld) 8.4 13.0-18.0 g/dL Low [facility] (28536) Comment: Performed By: #### HEMDF, BM P3, PCAL ####[address] [place] [address] Lymphocytes 1.5 1.0-4.3 10*3/uL Normal 05-19-2017 [facility] (50865) Comment: Performed By: #### HEMDF, BM P3, PCAL ####[address] [place] [address] Lymphocytes/100 leukocytes 17.9 % Normal [facility] (83882) Comment: Performed By: #### HEMDF, BM P3, PCAL ####[address] [place] [address] MCH 34.9 26.0-34.0 pg High 05-19-2017 [facility] (57357) Comment: Performed By: #### HEMDF, BM P3, PCAL ####[address] [place] [address] MCHC mass conc (RBC) 35.0 32.0-36.0 % Normal [address] [facility] (48022) Comment: Performed By: #### HEMDF, BM P3, PCAL ####[address] [place] [address] MCV 99.9 80.0-98.0 fL High 05-19-2017 [facility] (07186) Comment: Performed By: #### HEMDF, BM P3, PCAL ####[address] [place] [address] Monocytes 1.0 0.0-0.8 10*3/uL High 05-19-2017 [facility] (07365) Comment: Performed By: #### HEMDF, BM P3, PCAL ####[address] [place] [address] Monocytes/100 leukocytes 11.5 % Normal 05-[address] [facility] (43862) Comment: Performed By: #### HEMDF, BM P3, PCAL ####[address] [place] [address] Neutrophils 5.9 1.8-7.0 10*3/uL Normal 05-19-2017 [facility] (22780) Comment: Performed By: #### HEMDF, BM P3, PCAL ####[address] [place] [address] Platelet mean volume (PMV) 8.7 7.4-10.4 fL Normal [facility] (64849) Comment: Performed By: #### HEMDF, BM P3, PCAL ####[address] [place] [address] Platelets 107 140-440 10*3/uL Low 05-19-2017 [facility] (36031) Comment: Performed By: #### HEMDF, BM P3, PCAL ####[address] [place] [address] WBC (Leukocytes) 8.4 3.6-10.7 10*3/uL Normal 05-19-2017 [facility] (78699) Comment: Performed By: #### HEMDF, BM P3, PCAL ####[address] [place] [address] glucose,bedside on 2017-05-19 Glucose mass conc 138 70-100 mg/dL High 05-19-2017 [facility] (45348) Comment: Result Comment: Test perform ed by glucose meter. Results may be 10%-15% lowerthan serum/plasma value s. (CLIA ID [id number]) Performed By: #### UAMAC ### [address] [place] [address] Glucose mass conc 164 70-100 mg/dL High 05-19-2017 [facility] (50518) Comment: Result Comment: Test perform ed by glucose meter. Results may be 10%-15% lowerthan serum/plasma value s. (CLIA ID [id number]) Performed By: #### UAMAC ### [id number] [place] [address] Glucose mass conc 133 70-100 mg/dL High 05-19-2017 [facility] (79728) Comment: Result Comment: Test perform ed by glucose meter. Results may be 10%-15% lowerthan serum/plasma value s. (CLIA ID [id number]) Performed By: #### HEMDF, BM P3, PCAL ####[address] [place] [address] cr chest portable o n 2017-05-19 CR Chest Portable Patient Name: BECKY HUTCHISON 05-19-2017 [facility] FIN: Marbin cornejo ([id number]) [id number] Diagnostic Radiology Exam Date/Time 05/19/2017 16:45:49 EDT Exam CR Chest Portable Ordering Physician DO ARRIAZA KATHRYN C Accession Number [id number] CPT4 Codes 04570 () Reason For Exam line placement Report Examination: Portable chest Indication: line placement Findings: There is no focal consolidation, sizable pleural effusion or pneumothorax. The cardiac silhouette and mediastinum are within normal limits. Left arm PICC line tip overlies the caval atrial junction. Impression: No radiographic evidence of acute cardiopulmonary process. Report Dictated on Final Dictated: 05/19/2017 5:49 pm Dictating Physician: SWATHI VALDERRAMA Signed Date and Time: 05/19/2017 5:50 pm Signed by: SWATHI VALDERRAMA Transcribed Date and Time: 05/19/2017 5:49 basic metabolic panel on 2017-05-19 Anion gap 6 mmol/L Normal 05-19-2017 [facility] (06992) Comment: Performed By: #### HEMDF, BM P3, PCAL ####[address] [place] [address] Creatinine 0.52 0.55-1.40 mg/dL Low 05-19-2017 [facility] (72453) Comment: Performed By: #### HEMDF, BM P3, PCAL ####[address] [place] [address] eGFR (black) >60.0 >60 mL/min/{1.73_m2} Normal 05-19-[address] [facility] (76825) Comment: Performed By: #### HEMDF, BM P3, PCAL ####[address] [place] [address] eGFR (non-black) >60.0 >60 mL/min/{1.73_m2} Normal [address] [facility] (78375) Comment: Result Comment: Source- MDRD equation with creatinine calibration to IDMS(NKDEP)eGFR not recommen ded for drug dose adjustment Performed By: #### HEMDF, BM P3, PCAL ####[address] [place] [address] Calcium 7.8 8.2-10.1 mg/dL Low 05-19-2017 [facility] (68541) Comment: Performed By: #### HEMDF, BM P3, PCAL ####[address] [place] [address] Glucose mass conc 143 70-100 mg/dL High 05-19-2017 [facility] (38515) Comment: Performed By: #### HEMDF, BM P3, PCAL ####[address] [place] [address] Urea nitrogen 10 7-25 mg/dL Normal 05-19-[address] [facility] (94874) Comment: Performed By: #### HEMDF, BM P3, PCAL ####[address] [place] [address] CO2 25 21-32 mmol/L Normal 05-19-2017 [facility] (08763) Comment: Performed By: #### HEMDF, BM P3, PCAL ####[address] [place] [address] Chloride 103 98-109 mmol/L Normal 05-19-2017 [facility] (08763) Comment: Performed By: #### HEMDF, BM P3, PCAL ####[address] [address] Potassium molar conc 3.4 3.5-5.1 mmol/L Low [address] [facility] (53158) Comment: Performed By: #### HEMDF, BM P3, PCAL ####[address] [address] Sodium 134 135-145 mmol/L Low 05-19-2017 [facility] (20267) Comment: Performed By: #### HEMDF, BM P3, PCAL ####[address] [address] hemogram w/ autodiff on 2017-05-18 Abs Baso Cnt 0.0 0.0-0.2 10*3/uL Normal 05-18-[address] [facility] (48187) Comment: Performed By: #### HEMDF, BM P3, PCAL ####[place] [id number] Basophils/100 WBC Auto (Bld) 0.1 % Normal 0 05-18-[address] [facility] (52167) Comment: Performed By: #### HEMDF, BM P3, PCAL ####[place] [address] Eosinophils 0.0 0.0-0.5 10*3/uL Normal 05-18-2017 [facility] (18252) Comment: Performed By: #### HEMDF, BM P3, PCAL ####[address] [address] Eosinophils/100 leukocytes 0.2 % Normal [facility] (93097) Comment: Performed By: #### HEMDF, BM P3, PCAL ####[address] [address] Erythrocyte distribution 16.0 11.5-14.5 % High 05-[address] [facility] width Auto Ratio (RBC) (97773) Comment: Performed By: #### HEMDF, BM P3, PCAL ####[place] [address] [place] [address] Erythrocytes (RBC) 2.92 4.40-5.90 10*6/uL Low 05-18-[address] [facility] (96182) Comment: Performed By: #### HEMDF, BM P3, PCAL ####[address] [place] [address] Granulocytes/100 WBC (Bld) 87.5 % Normal [facility] (62722) Comment: Performed By: #### HEMDF, BM P3, PCAL ####[address] [place] [address] Hematocrit (HCT) 29.4 40.0-52.0 % Low 05-18-2017 [facility] (51179) Comment: Performed By: #### HEMDF, BM P3, PCAL ####[address] [place] [address] Hemoglobin mass conc (Bld) 10.3 13.0-18.0 g/dL Low [facility] (27592) Comment: Performed By: #### HEMDF, BM P3, PCAL ####[address] [place] [address] Lymphocytes 1.0 1.0-4.3 10*3/uL Normal 05-18-2017 [facility] (28788) Comment: Performed By: #### HEMDF, BM P3, PCAL ####[address] [place] [address] Lymphocytes/100 leukocytes 11.4 % Normal [facility] (98485) Comment: Performed By: #### HEMDF, BM P3, PCAL ####[address] [place] [address] MCH 35.4 26.0-34.0 pg High 05-18-2017 [facility] (12159) Comment: Performed By: #### HEMDF, BM P3, PCAL ####[address] [place] [address] MCHC mass conc (RBC) 35.1 32.0-36.0 % Normal [address] [facility] (13738) Comment: Performed By: #### HEMDF, BM P3, PCAL ####[address] [place] [address] MCV 100.6 80.0-98.0 fL High 05-18-2017 [facility] (10751) Comment: Performed By: #### HEMDF, BM P3, PCAL ####[address] [place] [address] Monocytes 0.1 0.0-0.8 10*3/uL Normal 05-18-2017 [facility] (18860) Comment: Performed By: #### HEMDF, BM P3, PCAL ####[address] [place] [address] Monocytes/100 leukocytes 0.8 % Normal 05-[address] [facility] (19083) Comment: Performed By: #### HEMDF, BM P3, PCAL ####[address] [place] [address] Neutrophils 7.7 1.8-7.0 10*3/uL High 05-18-2017 [facility] (61801) Comment: Performed By: #### HEMDF, BM P3, PCAL ####[address] [place] [address] Platelet mean volume (PMV) 8.7 7.4-10.4 fL Normal [facility] (11260) Comment: Performed By: #### HEMDF, BM P3, PCAL ####[address] [place] [address] Platelets 114 140-440 10*3/uL Low 05-18-2017 [facility] (47139) Comment: Performed By: #### HEMDF, BM P3, PCAL ####[address] [place] [address] WBC (Leukocytes) 8.8 3.6-10.7 10*3/uL Normal 05-18-2017 [facility] (67656) Comment: Performed By: #### HEMDF, BM P3, PCAL ####[address] [place] [address] glucose,bedside on 2017-05-18 Glucose mass conc 174 70-100 mg/dL High 05-18-2017 [facility] (00662) Comment: Result Comment: Test perform ed by glucose meter. Results may be 10%-15% lowerthan serum/plasma value s. (CLIA ID [id number]) Performed By: #### HEMDF, BM P3, PCAL ####[address] [place] [address] Glucose mass conc 250 70-100 mg/dL High 05-18-2017 [facility] (67433) Comment: Result Comment: Test perform ed by glucose meter. Results may be 10%-15% lowerthan serum/plasma value s. (CLIA ID [id number]) Performed By: #### HEMDF, BM P3, PCAL ####[address] [place] [address] Glucose mass conc 159 70-100 mg/dL High 05-18-2017 [facility] (58182) Comment: Result Comment: Test perform ed by glucose meter. Results may be 10%-15% lowerthan serum/plasma value s. (CLIA ID [id number]) Performed By: #### HEMDF, BM P3, PCAL ####[address] [place] [address] Glucose mass conc 159 70-100 mg/dL High 05-18-2017 [facility] (81688) Comment: Result Comment: Test perform ed by glucose meter. Results may be 10%-15% lowerthan serum/plasma value s. (CLIA ID [id number]) Performed By: #### HEMDF, BM P3, PCAL ####[address] [place] [address] Glucose mass conc 114 70-100 mg/dL High 05-18-2017 [facility] (40815) Comment: Result Comment: Test perform ed by glucose meter. Results may be 10%-15% lowerthan serum/plasma value s. (CLIA ID [id number]) Performed By: #### NIDA, BM P3, PCAL ####[address] [place] [address] culture on CULTURE OROR [facility] Patient name: Alfredo HUTCHISON 05-18-2017 [facility] BECKY AritaR.N.: [id number] : 1955 Health Age: 61 Sex: M Ord. System Physician: LANDRY ESCUDERO Location: [id number] ([id number]) Copy to: LANDRY ESCUDERO Adm. Date: 05/15/17 MICROBIOLOGYORDER#: [id number] COLLECTED: 05/17/17 22:25SOURCE: Tissue L4-5 DISC SPACE RECEIVED: 05/18/17 08:58 OE C O M M E N T S ORSTAIN GRAM FINAL 05/18/17 11:5009No polymorphonuclear cells/lpf.No organisms seen.CULTURE 05/21/17No growth at 3 days. Comment: Performed By: #### NIDA, BM P3, PCAL ####[address] [address] culture anaerobe on 2017-05-18 CULTURE OR SWABOR SWAB [facility] Patient Normal 05-18-2017 [facility] ANAEROBE name: ROSI HUTCHISONCORNELIA AritaR.N.: [id number] : Health 1955 Age: 61 Sex: M Account#: System [id number] Ord. Physician: LANDRY ESCUDERO ([id number]) Location: [id number] Copy to: LANDRY ESCUDERO DISCHARGED: 05/22/17 Adm. Date: 05/15/17 MICROBIOLOGYORDER#: [id number] COLLECTED: 05/17/17 22:25SOURCE: Wound-surgical L4-5 DISC SPACE RECEIVED: 05/18/17 08:57 JAY Chatman N T S OR SWABCULTURE ANAEROBE FINAL 05/23/17 09:00005/23/17No growth of anaerobes at 5 days. Comment: Performed By: #### NIDA, FABRICE P3, PCAL ####[address] [place] [address] CULTURE OROR [facility] Patient name: Suzan sloan 05-18-2017 [facility] ANAEROBE BECKY HUTCHISONRIndiraN.: [id number] : [facility] 1955 Age: 61 Sex: M Account#: System [id number] Ord. Physician: LANDRY ESUCDERO ([id number]) Location: [id number] Copy to: LANDRY ESCUDERO DISCHARGED: 05/22/17 Adm. Date: 05/15/17 MICROBIOLOGYORDER#: [id number] COLLECTED: 05/17/17 22:25SOURCE: Tissue L4-5 DISC SPACE RECEIVED: 05/18/17 08:58 JAY Estrella E N T S ORCULTURE ANAEROBE FINAL 05/23/17 09:03005/23/17No growth of anaerobes at 5 days. Comment: Performed By: #### NIDA, BM P3, PCAL ####[address] [place] [address] cult./st. bacteria on 2017-05-18 CULT./ST. OR SWABOR SWAB [facility] Patient Normal 05-18-2017 [facility] BACTERIA name: BECKY HUTCHISONN.: [id number] : [facility] 1955 Age: 61 Sex: M Account#: System [id number] Ord. Physician: LANDRY ESCUDERO ([id number]) Location: 6[place]-0604 Copy to: LANDRY ESCUDERO Adm. Date: 05/15/17 MICROBIOLOGYORDER#: [id number] COLLECTED: 05/17/17 22:25SOURCE: Wound-surgical L4-5 DISC SPACE RECEIVED: 05/18/17 08:57 OE C O M M E N T S OR SWABSTAIN GRAM FINAL 05/18/17 11:51005/18/17Rare polymorphonuclear cells/lpf.No organisms seen.CULT./ST. BACTERIA FINAL 05/21/17 10:57005/21/17No growth at 3 days. Comment: Performed By: #### HEMDF, BM P3, PCAL ####[place] [address] basic metabolic panel on 2017-05-18 Anion gap 9 mmol/L Normal 05-18-2017 [facility] (03706) Comment: Performed By: #### HEMDF, BM P3, PCAL ####[place] [address] Creatinine 0.67 0.55-1.40 mg/dL Normal 05-18-2017 [facility] (75337) Comment: Performed By: #### HEMDF, BM P3, PCAL ####[place] [address] eGFR (black) >60.0 >60 mL/min/{1.73_m2} Normal 05-18-[address] [facility] (80999) Comment: Performed By: #### HEMDF, BM P3, PCAL ####[place] [address] eGFR (non-black) >60.0 >60 mL/min/{1.73_m2} Normal [address] [facility] (23991) Comment: Result Comment: Source- MDRD equation with creatinine calibration to IDMS(NKDEP)eGFR not recommen ded for drug dose adjustment Performed By: #### HEMDF, BM P3, PCAL ####[place] [address] Calcium 7.9 8.2-10.1 mg/dL Low 05-18-2017 [facility] (96120) Comment: Performed By: #### HEMDF, BM P3, PCAL ####[address] [place] [address] Glucose mass conc 154 70-100 mg/dL High 05-18-2017 [facility] (17001) Comment: Performed By: #### HEMDF, BM P3, PCAL ####[address] [place] [address] Urea nitrogen 12 7-25 mg/dL Normal 05-18-[address] [facility] (44428) Comment: Performed By: #### HEMDF, BM P3, PCAL ####[address] [place] [address] CO2 21 21-32 mmol/L Normal 05-18-2017 [facility] (88700) Comment: Performed By: #### HEMDF, BM P3, PCAL ####[address] [place] [address] Chloride 107 98-109 mmol/L Normal 05-18-2017 [facility] (05955) Comment: Performed By: #### HEMDF, BM P3, PCAL ####[address] [place] [address] Potassium molar conc 4.3 3.5-5.1 mmol/L Normal 7 [facility] (10978) Comment: Result Comment: Slightly hem olysed, interpret with caution. Performed By: #### HEMDF, BM P3, PCAL ####[address] [place] [address] Sodium 137 135-145 mmol/L Normal 05-18-2017 [facility] (46445) Comment: Performed By: #### HEMDF, BM P3, PCAL ####[address] [place] [address] prothrombin time on 2017-05-17 INR Coag RelTime (PPP) 1.5 0.9-1.1 {INR} High [address] [facility] (30715) Comment: Result Comment: Recommended Anticoagulant Therapy:SEE BELOW----- INR of 2.0 - 3.0 :- Prophylaxis of Veno us Thrombosis (high-risk surgery)- Treatment of Venous Thrombosis- Treatment of Pulmonary Embolism (Includes tissue heartvalves, Acute Myocardia l Infarction to prevent systemicembolism, Valvular Heart Disease, and Atrial Fibrillation)----- INR of 2.5 - 3.5 :- Mechanical Prosthetic Valves (high risk)- If oral anticoagulant therapy is used to preventMyocardial In farction Performed By: #### HEMDF, BM P3, PCAL ####[address] [place] [address] Prothrombin time (PT) Coag 14.8 9.0-12.0 s High [facility] time (PPP) (94233) Comment: Result Comment: . Performed By: #### HEMDF, BM P3, PCAL ####[address] [place] [address] hemogram w/ autodiff on 2017-05-17 Abs Baso Cnt 0.0 0.0-0.2 10*3/uL Normal 05-17-[address] [facility] (11135) Comment: Performed By: #### HEMDF, BM P3, PCAL ####[address] [place] [address] Basophils/100 WBC Auto (Bld) 0.0 % Normal 0 05-17-[address] [facility] (32923) Comment: Performed By: #### HEMDF, BM P3, PCAL ####[address] [place] [address] Eosinophils 0.0 0.0-0.5 10*3/uL Normal 05-17-2017 [facility] (66075) Comment: Performed By: #### HEMDF, BM P3, PCAL ####[address] [place] [address] Eosinophils/100 leukocytes 0.4 % Normal [facility] (15513) Comment: Performed By: #### HEMDF, BM P3, PCAL ####[address] [place] [address] Erythrocyte distribution 15.7 11.5-14.5 % High 05-[address] [facility] width Auto Ratio (RBC) (32102) Comment: Performed By: #### HEMDF, BM P3, PCAL ####[address] [place] [address] Erythrocytes (RBC) 2.90 4.40-5.90 10*6/uL Low 05-17-[address] [facility] (55214) Comment: Performed By: #### HEMDF, BM P3, PCAL ####[address] [address] Granulocytes/100 WBC (Bld) 74.4 % Normal [facility] (37458) Comment: Performed By: #### HEMDF, BM P3, PCAL ####[place] [address] Hematocrit (HCT) 29.7 40.0-52.0 % Low 05-17-2017 [facility] (46975) Comment: Performed By: #### HEMDF, BM P3, PCAL ####[place] [address] Hemoglobin mass conc (Bld) 10.4 13.0-18.0 g/dL Low [facility] (60190) Comment: Performed By: #### HEMDF, BM P3, PCAL ####[address] [address] Lymphocytes 1.5 1.0-4.3 10*3/uL Normal 05-17-2017 [facility] (95764) Comment: Performed By: #### HEMDF, BM P3, PCAL ####[address] [address] Lymphocytes/100 leukocytes 16.3 % Normal [facility] (78270) Comment: Performed By: #### HEMDF, BM P3, PCAL ####[address] [place] [address] MCH 35.9 26.0-34.0 pg High 05-17-2017 [facility] (12295) Comment: Performed By: #### HEMDF, BM P3, PCAL ####[address] [place] [address] MCHC mass conc (RBC) 35.1 32.0-36.0 % Normal [address] [facility] (66197) Comment: Performed By: #### HEMDF, BM P3, PCAL ####[address] [place] [address] MCV 102.4 80.0-98.0 fL High 05-17-2017 [facility] (09148) Comment: Performed By: #### HEMDF, BM P3, PCAL ####[address] [address] Monocytes 0.8 0.0-0.8 10*3/uL Normal 05-17-2017 [facility] (09755) Comment: Performed By: #### HEMDF, BM P3, PCAL ####[address] [address] Monocytes/100 leukocytes 8.9 % Normal 05-[address] [facility] (09465) Comment: Performed By: #### HEMDF, BM P3, PCAL ####[address] [address] Neutrophils 6.9 1.8-7.0 10*3/uL Normal 05-17-2017 [facility] (85673) Comment: Performed By: #### HEMDF, BM P3, PCAL ####[address] [place] [address] Platelet mean volume (PMV) 8.4 7.4-10.4 fL Normal [facility] (82947) Comment: Performed By: #### HEMDF, BM P3, PCAL ####[address] [place] [address] Platelets 98 140-440 10*3/uL Low 05-17-2017 [facility] (96273) Comment: Performed By: #### HEMDF, BM P3, PCAL ####[address] [place] [address] WBC (Leukocytes) 9.3 3.6-10.7 10*3/uL Normal 05-17-2017 [facility] (80181) Comment: Performed By: #### HEMDF, BM P3, PCAL ####[address] [place] [address] glucose,bedside on 2017-05-17 Glucose mass conc 91 70-100 mg/dL Normal 05-17-2017 [facility] (26636) Comment: Result Comment: Test perform ed by glucose meter. Results may be 10%-15% lowerthan serum/plasma value s. (CLIA ID [id number]) Performed By: #### HEMDF, BM P3, PCAL ####[address] [place] [address] Glucose mass conc 107 70-100 mg/dL High 05-17-2017 [facility] (44188) Comment: Result Comment: Test perform ed by glucose meter. Results may be 10%-15% lowerthan serum/plasma value s. (CLIA ID [id number]) Performed By: #### HEMDF, BM P3, PCAL ####[address] [place] [address] Glucose mass conc 98 70-100 mg/dL Normal 05-17-2017 [facility] (79994) Comment: Result Comment: Test perform ed by glucose meter. Results may be 10%-15% lowerthan serum/plasma value s. (CLIA ID [id number]) Performed By: #### HEMDF, BM P3, PCAL ####[address] [place] [address] Glucose mass conc 92 70-100 mg/dL Normal 05-17-2017 [facility] (91768) Comment: Result Comment: Test perform ed by glucose meter. Results may be 10%-15% lowerthan serum/plasma value s. (CLIA ID [id number]) Performed By: #### HEMDF, BM P3, PCAL ####[address] [address] culture blood on 29-05-05 CULTURE Specimen Source Comment:Blood [facility] 05-17-2017 [facility] BLOOD [facility] Patient name: BECKY HUTCHISON Sameer.R.N.: [facility] [id number] : 1955 Age: 61 Sex: M System Ord. Physician: ([id number]) TITA ESQUIVEL Location: 4EI-140 Copy to: TITA ESQUIVEL DISCHARGED: 05/22/17 Adm. Date: 05/15/17 MICROBIOLOGYORDER#: [id number] COLLECTED: 05/17/17 16:30SOURCE: Blood (Left -hand) RECEIVED: 05/17/17 18:26 OE Gabyb Estrella E N T S Specimen Source Comment:BloodCULTURE BLOOD FINAL 05/22/17 20:0605/22/17No growth at 5 days. Comment: Performed By: #### NIDA, BM P3, PCAL ####[address] [address] CULTURE Specimen Source Comment:Blood [facility] 05-17-2017 [facility] BLOOD System Patient name: BECKY HUTCHISON LylaR.N.: [facility] [id number] : 1955 Age: 61 Sex: M System Ord. Physician: ([id number]) TITA ESQUIVEL Location: 4EI-140 Copy to: TITA ESQUIVEL DISCHARGED: 05/22/17 Adm. Date: 05/15/17 MICROBIOLOGYORDER#: [id number] COLLECTED: 05/17/17 16:15SOURCE: Blood (Right -hand) RECEIVED: 05/17/17 18:25 OE Gabby Estrella M E N T S Specimen Source Comment:BloodCULTURE BLOOD FINAL 05/22/17 20:0605/22/17No growth at 5 days. Comment: Performed By: #### HEMDF, BM P3, PCAL ####[address] [place] [address] basic metabolic panel on 2017-05-17 Anion gap 10 mmol/L Normal 05-17-2017 [facility] (42004) Comment: Performed By: #### HEMDF, BM P3, PCAL ####[address] [place] [address] Glucose mass conc 91 70-100 mg/dL Normal 05-17-2017 [facility] (45596) Comment: Performed By: #### HEMDF, BM P3, PCAL ####[address] [place] [address] Urea nitrogen 10 7-25 mg/dL Normal 05-17-[address] [facility] (47861) Comment: Performed By: #### HEMDF, BM P3, PCAL ####[address] [place] [address] Calcium 8.2 8.2-10.1 mg/dL Normal 05-17-2017 [facility] (18784) Comment: Performed By: #### HEMDF, BM P3, PCAL ####[address] [place] [address] Creatinine 0.52 0.55-1.40 mg/dL Low 05-17-2017 [facility] (56088) Comment: Performed By: #### HEMDF, BM P3, PCAL ####[address] [place] [address] eGFR (black) >60.0 >60 mL/min/{1.73_m2} Normal 05-17-[address] [facility] (43220) Comment: Performed By: #### HEMDF, BM P3, PCAL ####[address] [place] [address] eGFR (non-black) >60.0 >60 mL/min/{1.73_m2} Normal 2016 [facility] (61348) Comment: Result Comment: Source- MDRD equation with creatinine calibration to IDMS(NKDEP)eGFR not recommen ded for drug dose adjustment Performed By: #### HEMDF, BM P3, PCAL ####[address] [place] [address] CO2 21 21-32 mmol/L Normal 05-17-2017 [facility] (33015) Comment: Performed By: #### HEMDF, BM P3, PCAL ####[address] [place] [address] Chloride 106 98-109 mmol/L Normal 05-17-2017 [facility] (35237) Comment: Performed By: #### HEMDF, BM P3, PCAL ####[address] [place] [address] Potassium molar conc 3.4 3.5-5.1 mmol/L Low 7 [employer] (78946) Comment: Performed By: #### HEMDF, BM P3, PCAL ####[address] [place] [address] Sodium 137 135-145 mmol/L Normal 05-17-2017 [facility] (41496) Comment: Performed By: #### HEMDF, BM P3, PCAL ####[address] [place] [address] ts gel on 4 TS PATIENT: TG PENA MRN: [id number] LOC: 4EI,[id number],801BILL# : [id number] : 1955 Normal 05-16-2017 [id number] SEX: M AGE: 61ORDERED BY: Missy Guardado ORDERED : 05/15/2017 23:06 COLLECTED: Health 05/16/2017 02:18ORDER : [id number] RECEIVED : 05/16/2017 System 02:21 ---TEST ([id number]) NAME RESULT UNITS RANGES ABN FL STABO Group AB FRh, Gel NEG FAntibody Screen Gel NEG F Comment: Performed By: #### TSGL #### [address] [address] mri spine lumbar w/ + w/o contrast on 2017-05-16 MRI Spine Lumbar w/ Patient Name: Alfredo HUTCHISON 05-16-2017 Kites + w/o Contrast BECKY FIN: System ([id number]) [id number] MRI Exam Date/Time 05/16/2017 10:44:41 EDT Exam MRI Spine Lumbar w/ + w/o Contrast Ordering Physician MD DEANGELO, SRI ARITA Accession Number [id number] CPT4 Codes 42222 () Reason For Exam L4-5 Diskitis, osteomyelitis, Report Reason for examination: Back pain, fever, tachycardia, known L4-L5 discitis from outside studies, spinal infection. MR scan lumbar spine was performed without and with contrast. Sagittal and axial T1 and T2-weighted scans and sagittal STIR scans were performed. Following intravenous administration of 20 mL of Multihance, sagittal and axial T1-weighted scans were repeated. There outside comparison studies are not available for review. There is extensive vertebral marrow space edema involving L4 and L5, with loss of endplate integrity at the inferior endplate of L4 and superior endplate of L5. On the unenhanced scans, there is a large ventral epidural extraosseous collection, which is mixed high signal on the T2-weighted images, compatible with an epidural abscess. On the STIR images, again the extensive vertebral edema and the liquefaction the L4-L5 disc space with approximately 1.5 cm craniocaudal by 7 mm AP by 1.3 cm right left dimension ventral epidural high T2 signal collection, compatible with epidural abscess. This is associated with moderately severe local spinal canal stenosis at L4-L5. There is slight inflammation in the medial portions of the psoas muscles adjacent L4-L5, with no definite definable paravertebral abscess. Following gadolinium administration, there is extensive pathologic enhancement of the ventral epidural soft tissue at L4-L5, with a discrete abscess loculation behind the L4-L5 disc space, and there is some liquefaction within the disc space, as well as in a left dorsal zone in the superior endplate and subplate of L5, which probably is an area of bony necrosis from osteomyelitis with endplate Schmorl's node type deformity. Again there is enhancement in the paravertebral regions at L4-L5 in the medial margins of the psoas muscle, with no real definable abscess, but with early myositic changes in the medial aspects of the psoas muscles. There is normal alignment of lumbar vertebrae on the sagittal images. The marrow space from T12 through L3 is normal. There is mild loss of hydration and minimal bulging at L1-L2. There is no significant spinal canal stenosis. There is mild disc degeneration and bulging at L3-L4. At L5-S1, the disc is normal in height. There is no significant spinal canal or foraminal stenosis. The lower thoracic spinal cord and conus are normal. Nerve roots of the cauda equina are normal. 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 There are some paravertebral inflammatory changes and early myositic changes in the mesial aspects of the psoas muscles locally, but there is no definable paravertebral abscess currently. There appears to be a pathologic L5 left dorsal upper endplate Schmorl's node deformity with necrotic bone related to the osteomyelitis. Report Dictated on Final Dictated: 05/16/2017 11:14 am Dictating Physician: MD AYALA DANIEL Signed Date and Time: 05/16/2017 11:27 am Signed by: MD AYALA DANIEL Transcribed Date and Time: 05/16/2017 11:14 hemogram w/ autodiff on 2017-05-16 Abs Baso Cnt 0.0 0.0-0.2 10*3/uL Normal 05-16-[address] [facility] (60452) Comment: Performed By: #### HEMDF, BM P3 ####[address] [place] [address] Basophils/100 WBC Auto (Bld) 0.4 % Normal 0 05-16-[address] [facility] (25495) Comment: Performed By: #### HEMDF, BM P3 ####[address] [place] [address] Eosinophils 0.0 0.0-0.5 10*3/uL Normal 05-16-2017 [facility] (54170) Comment: Performed By: #### HEMDF, BM P3 ####[address] [place] [address] Eosinophils/100 leukocytes 0.2 % Normal [facility] (40443) Comment: Performed By: #### HEMDF, BM P3 ####[address] [place] [address] Erythrocyte distribution 15.5 11.5-14.5 % High 05-[address] [facility] width Auto Ratio (RBC) (41353) Comment: Performed By: #### HEMDF, BM P3 ####[address] [place] [address] Erythrocytes (RBC) 3.05 4.40-5.90 10*6/uL Low 05-16-[address] [facility] (99501) Comment: Performed By: #### HEMDF, BM P3 ####[address] [place] [address] Granulocytes/100 WBC (Bld) 77.6 % Normal [facility] (03834) Comment: Performed By: #### HEMDF, BM P3 ####[address] [place] [address] Hematocrit (HCT) 31.0 40.0-52.0 % Low 05-16-2017 [facility] (15340) Comment: Performed By: #### HEMDF, BM P3 ####[address] [place] [address] Hemoglobin mass conc (Bld) 10.8 13.0-18.0 g/dL Low [facility] (41458) Comment: Performed By: #### FABRICE ALVA P3 ####[address] [address] Lymphocytes 1.5 1.0-4.3 10*3/uL Normal 05-16-2017 [facility] (86222) Comment: Performed By: #### FABRICE ALVA P3 ####[address] [place] [address] Lymphocytes/100 leukocytes 13.8 % Normal [facility] (15931) Comment: Performed By: #### FABRICE ALVA P3 ####[address] [address] MCH 35.5 26.0-34.0 pg High 05-16-2017 [facility] (81467) Comment: Performed By: #### FABRICE ALVA P3 ####[address] [place] [address] MCHC mass conc (RBC) 34.9 32.0-36.0 % Normal 7 [facility] (39492) Comment: Performed By: #### FABRICE ALVA P3 ####[address] [address] MCV 101.7 80.0-98.0 fL High 05-16-2017 [facility] (84589) Comment: Performed By: #### FABRICE ALVA P3 ####[address] [address] Monocytes 0.8 0.0-0.8 10*3/uL Normal 05-16-2017 [facility] (58004) Comment: Performed By: #### FABRICE ALVA P3 ####[address] [place] [address] Monocytes/100 leukocytes 8.0 % Normal 05-[address] [facility] (39180) Comment: Performed By: #### FABRICE ALVA P3 ####[address] [place] [address] Neutrophils 8.2 1.8-7.0 10*3/uL High 05-16-2017 [facility] (21183) Comment: Performed By: #### HEMDF, BM P3 ####[place] [address] [place] [address] Platelet mean volume (PMV) 8.4 7.4-10.4 fL Normal [facility] (51095) Comment: Performed By: #### HEMDF, BM P3 ####[address] [place] [address] Platelets 103 140-440 10*3/uL Low 05-16-2017 [facility] (66723) Comment: Performed By: #### HEMDF, BM P3 ####[address] [place] [address] WBC (Leukocytes) 10.5 3.6-10.7 10*3/uL Normal 05-16-2017 [facility] (97488) Comment: Performed By: #### HEMDF, BM P3 ####[address] [place] [address] glucose,bedside on 2017-05-16 Glucose mass conc 101 70-100 mg/dL High 05-16-2017 [facility] (24541) Comment: Result Comment: Test perform ed by glucose meter. Results may be 10%-15% lowerthan serum/plasma value s. (CLIA ID [id number]) Performed By: #### HEMDF, BM P3, PCAL ####[address] [place] [address] Glucose mass conc 96 70-100 mg/dL Normal 05-16-2017 [facility] (63872) Comment: Result Comment: Test perform ed by glucose meter. Results may be 10%-15% lowerthan serum/plasma value s. (CLIA ID [id number]) Performed By: #### HEMDF, BM P3, PCAL ####[address] [place] [address] Glucose mass conc 100 70-100 mg/dL Normal 05-16-2017 [facility] (28312) Comment: Result Comment: Test perform ed by glucose meter. Results may be 10%-15% lowerthan serum/plasma value s. (CLIA ID [id number]) Performed By: #### HEMDF, BM P3, PCAL ####[address] [place] [address] Glucose mass conc 103 70-100 mg/dL High 05-16-2017 [facility] (70145) Comment: Result Comment: Test perform ed by glucose meter. Results may be 10%-15% lowerthan serum/plasma value s. (CLIA ID [id number]) Performed By: #### HEMDF, BM P3, PCAL ####[address] [place] [address] Glucose mass conc 105 70-100 mg/dL High 05-16-2017 [facility] (02727) Comment: Result Comment: Test perform ed by glucose meter. Results may be 10%-15% lowerthan serum/plasma value s. (CLIA ID [id number]) Performed By: #### BGLU #### [address] [place] [address] cr spine lumbosacral 2 or 3 views on 2017-05-16 CR Spine Lumbosacral Patient Name: BECKY HUTCHISON 05-16-2017 [facility] 2 or 3 Views FIN: System ([id number]) [id number] Diagnostic Radiology Exam Date/Time 05/16/2017 01:35:41 EDT Exam CR Spine Lumbosacral 2 or 3 Views Ordering Physician MD DEANGELO, SRI ARITA Accession Number [id number] CPT4 Codes 85039 () Reason For Exam painportable if possible Report Lumbar spine CLINICAL INDICATION: Back pain with possible discitis AP, lateral and lumbosacral spot views were obtained. There are five nonrib-bearing lumbar-type vertebra. Endplate hypertrophic changes are mild and diffuse. The L4-L5 intervertebral disc height is mildly narrowed. No definite erosive or destructive bone changes are noted. There is no focal spondylolisthesis. Hypertrophic facet arthropathy is moderate at the L4-L5 and L5-S1 levels. IMPRESSION: No definite findings of discitis are noted Mild narrowing of the L4-L5 disc Report Dictated on Workstation: [id number] Final Dictated: 05/16/2017 5:03 am Dictating Physician: MD DUARTE DIANE Signed Date and Time: 05/16/2017 5:05 am Signed by: MD DUARTE DIANE Transcribed Date and Time: 05/16/2017 5:03 basic metabolic panel on 2017-05-16 Anion gap 9 mmol/L Normal 05-16-2017 [facility] (24834) Comment: Performed By: #### HEMDF, BM P3 ####[address] [place] [address] Creatinine 0.56 0.55-1.40 mg/dL Normal 05-16-2017 [facility] (58144) Comment: Performed By: #### HEMDF, BM P3 ####[address] [place] [address] eGFR (black) >60.0 >60 mL/min/{1.73_m2} Normal 05-16-[address] [facility] (39236) Comment: Performed By: #### HEMDF, BM P3 ####[address] [place] [address] eGFR (non-black) >60.0 >60 mL/min/{1.73_m2} Normal [address] [facility] (64536) Comment: Result Comment: Source- MDRD equation with creatinine calibration to IDMS(NKDEP)eGFR not recommen ded for drug dose adjustment Performed By: #### HEMDF, BM P3 ####[address] [place] [address] Glucose mass conc 101 70-100 mg/dL High 05-16-2017 [facility] ([id number]) Comment: Performed By: #### HEMDF, BM P3 ####[address] [place] [address] Urea nitrogen 10 7-25 mg/dL Normal 05-16-[address] [facility] (71213) Comment: Performed By: #### HEMDF, BM P3 ####[address] [place] [address] Calcium 8.4 8.2-10.1 mg/dL Normal 05-16-2017 [facility] (66069) Comment: Performed By: #### HEMRADHA BM P3 ####[address] [place] [address] CO2 21 21-32 mmol/L Normal 05-16-2017 [facility] (75410) Comment: Performed By: #### HEMRADHA BM P3 ####[address] [place] [address] Chloride 104 98-109 mmol/L Normal 05-16-2017 [facility] (10480) Comment: Performed By: #### HEMRADHA BM P3 ####[address] [place] [address] Potassium molar conc 3.4 3.5-5.1 mmol/L Low [address] [facility] (49073) Comment: Performed By: #### HEMRADHA BM P3 ####[address] [place] [address] Sodium 134 135-145 mmol/L Low 05-16-2017 [facility] (20942) Comment: Performed By: #### HEMRADHA BM P3 ####[address] [place] [address] urinalysis,macro on 2017-05-15 Bilirubin (direct) NEG Negative mg/dL Normal 05-15-[address] [facility] (56760) Comment: Performed By: #### UAMAC ### #[address] [place] [address] Ketone,Urine NEG Negative Normal 05-15-[address] [facility] (09424) Comment: Performed By: #### UAMAC ### #[address] [place] [address] Occult Blood,Ur NEG Negative Normal 05-15-2017 [facility] (24892) Comment: Performed By: #### UAMAC ### #[address] [place] [address] Specific [place],Urine 1.005 1.005-1.030 Normal 05-[address] [facility] (46189) Comment: Performed By: #### UAMAC ### #[place] [address] [place] [address] Total Protein,Urine NEG Negative Normal 05-15-[address] [facility] (90059) Comment: Performed By: #### UAMAC ### #[address] [place] [address] Urine, appearance clear Clear Normal 05-15-2017 [facility] (02322) Comment: Performed By: #### UAMAC ### #[address] [place] [address] Urine, color yellow Lt. Yellow Normal 05-15-[address] [facility] (64540) Comment: Performed By: #### UAMAC ### #[address] [place] [address] Urine, glucose presence NORM Negative Normal [address] [facility] (45001) Comment: Performed By: #### UAMAC ### #[address] [place] [address] Urine, nitrite presence NEG Negative Normal [address] [facility] (82019) Comment: Performed By: #### UAMAC ### #[address] [place] [address] Urine, pH 7.0 5.0-8.0 [pH] Normal 05-15-2017 [facility] (95225) Comment: Performed By: #### UAMAC ### #[address] [place] [address] Urine, urobilinogen NORM 0-1 Normal 05-15-[address] [facility] (21800) Comment: Performed By: #### UAMAC ### #[address] [place] [address] WBC (Leukocytes) NEG Negative 10*3/uL Normal 05-15-2017 [facility] (63102) Comment: Performed By: #### UAMAC ### #[place] [address] [address] procalcitonin on 29-05-03 Procalcitonin 0.42 <0.10 ng/mL Abnormal 05-15-[address] [facility] (44996) Comment: Performed By: #### HEMDF, BM P3, PCAL ####[address] [address] Interpretation See Below Normal 05-15-2017 [facility] (77533) Comment: Result Comment: PCT <0.50 = Low risk of severe sepsis and/or septic shock.PCT >2.00 = High risk of severe sepsis and/or septic shock. Performed By: #### HEMDF, BM P3, PCAL ####[place] [address] hemogram w/ autodiff on 2017-05-15 Abs Baso Cnt 0.0 0.0-0.2 10*3/uL Normal 05-15-[address] [facility] (38083) Comment: Performed By: #### HEMDF, BM P3, PCAL ####[address] [address] Basophils/100 WBC Auto (Bld) 0.1 % Normal 0 05-15-[address] [facility] (51926) Comment: Performed By: #### HEMDF, BM P3, PCAL ####[address] [address] Eosinophils 0.0 0.0-0.5 10*3/uL Normal 05-15-2017 [facility] (05725) Comment: Performed By: #### HEMDF, BM P3, PCAL ####[address] [address] Eosinophils/100 leukocytes 0.3 % Normal [facility] (38457) Comment: Performed By: #### HEMDF, BM P3, PCAL ####[address] [address] Erythrocyte distribution 15.7 11.5-14.5 % High 05-[address] [facility] width Auto Ratio (RBC) (31391) Comment: Performed By: #### HEMDF, BM P3, PCAL ####[address] [place] [address] Erythrocytes (RBC) 3.30 4.40-5.90 10*6/uL Low 05-15-[address] [facility] (26087) Comment: Performed By: #### HEMDF, BM P3, PCAL ####[address] [place] [address] Granulocytes/100 WBC (Bld) 81.0 % Normal [facility] (70885) Comment: Performed By: #### HEMDF, BM P3, PCAL ####[address] [place] [address] Hematocrit (HCT) 33.4 40.0-52.0 % Low 05-15-2017 [facility] (89280) Comment: Performed By: #### HEMDF, BM P3, PCAL ####[address] [place] [address] Hemoglobin mass conc (Bld) 11.7 13.0-18.0 g/dL Low [facility] (68254) Comment: Performed By: #### HEMDF, BM P3, PCAL ####[address] [address] Lymphocytes 1.2 1.0-4.3 10*3/uL Normal 05-15-2017 [facility] (58722) Comment: Performed By: #### HEMDF, BM P3, PCAL ####[address] [place] [address] Lymphocytes/100 leukocytes 11.9 % Normal [facility] (14158) Comment: Performed By: #### HEMDF, BM P3, PCAL ####[address] [place] [address] MCH 35.4 26.0-34.0 pg High 05-15-2017 [facility] (43558) Comment: Performed By: #### HEMDF, BM P3, PCAL ####[address] [place] [address] MCHC mass conc (RBC) 35.0 32.0-36.0 % Normal [address] [facility] (06690) Comment: Performed By: #### HEMDF, BM P3, PCAL ####[address] [place] [address] MCV 101.3 80.0-98.0 fL High 05-15-2017 [facility] (66716) Comment: Performed By: #### HEMDF, BM P3, PCAL ####[address] [place] [address] Monocytes 0.7 0.0-0.8 10*3/uL Normal 05-15-2017 [facility] (76155) Comment: Performed By: #### HEMDF, BM P3, PCAL ####[address] [place] [address] Monocytes/100 leukocytes 6.7 % Normal 05-[address] [facility] (88175) Comment: Performed By: #### HEMDF, BM P3, PCAL ####[address] [place] [address] Neutrophils 8.3 1.8-7.0 10*3/uL High 05-15-2017 [facility] (74012) Comment: Performed By: #### HEMDF, BM P3, PCAL ####[address] [place] [address] Platelet mean volume (PMV) 8.2 7.4-10.4 fL Normal [facility] (15448) Comment: Performed By: #### HEMDF, BM P3, PCAL ####[address] [place] [address] Platelets 113 140-440 10*3/uL Low 05-15-2017 [facility] (53425) Comment: Performed By: #### HEMDF, BM P3, PCAL ####[address] [place] [address] WBC (Leukocytes) 10.3 3.6-10.7 10*3/uL Normal 05-15-2017 [facility] (26111) Comment: Performed By: #### HEMDF, BM P3, PCAL ####[address] [place] [address] glucose,bedside on 2017-05-15 Glucose mass conc 110 70-100 mg/dL High 05-15-2017 [facility] (45352) Comment: Result Comment: Test perform ed by glucose meter. Results may be 10%-15% lowerthan serum/plasma value s. (CLIA ID [id number]) Performed By: #### BGLU #### [address] [place] [address] culture urine on 29-05-03 CULTURE Specimen Source Comment:Urine, clean catch Normal 05-15-2017 [facility] URINE [facility] Patient name: Marti HUTCHISON.R.N.: [id number] : 1955 System Age: 61 Sex: M Ord. ([id number]) Physician: BARBARA BURDEN Location: [address] [place] [address] Copy to: BARBARA BURDEN Adm. Date: 05/15/17 MICROBIOLOGYORDER#: [id number] COLLECTED: 05/15/17 17:30SOURCE: Urine RECEIVED: 05/15/17 17:55 OE C O M M E N T S Specimen Source Comment:Urine, clean catchCULTURE URINE FINAL 05/16/17 13:No growth (<1,000 CFU/ml). Comment: Performed By: #### HEMDF, BM P3, PCAL ####[address] [place] [address] cr chest 1 view frontal on 2017-05-15 CR Chest 1 View Patient Name: Alfredo HUTCHISON [facility] Delbert PENA ([id number]) Diagnostic Radiology Exam Date/Time 05/15/2017 17:22:26 EDT Exam CR Chest 1 View Frontal Ordering Physician Harriett BURDEN GARREN Accession Number [id number] CPT4 Codes 89209 () Reason For Exam dyspnea Report PORTABLE CHEST CLINICAL INDICATION: Shortness of breath TECHNIQUE: Portable AP COMPARISON: None FINDINGS: Exam quality: EKG leads overlie the chest obscuring small portions of the lungs. The cardiac and mediastinal silhouettes are normal. The lungs are clear. The costophrenic angles are sharp. The osseous structures are unremarkable. IMPRESSION: No acute abnormality Report Dictated on Final Dictated: 05/15/2017 5:33 pm Dictating Physician: ELENITA ANDRADE Signed Date and Time: 05/15/2017 5:34 pm Signed by: ELENITA ANDRADE Transcribed Date and Time: 05/15/2017 5:33 basic metabolic panel on 2017-05-15 Anion gap 9 mmol/L Normal 05-15-2017 [facility] (55629) Comment: Performed By: #### HEMDF, BM P3, PCAL ####[place] [address] Creatinine 0.63 0.55-1.40 mg/dL Normal 05-15-2017 [facility] (33466) Comment: Performed By: #### HEMDF, BM P3, PCAL ####[place] [address] eGFR (black) >60.0 >60 mL/min/{1.73_m2} Normal 05-15-[address] [facility] (80739) Comment: Performed By: #### HEMDF, BM P3, PCAL ####[place] [address] eGFR (non-black) >60.0 >60 mL/min/{1.73_m2} Normal [address] [facility] (21242) Comment: Result Comment: Source- MDRD equation with creatinine calibration to IDMS(NKDEP)eGFR not recommen ded for drug dose adjustment Performed By: #### HEMDF, BM P3, PCAL ####[address] [place] [address] CO2 23 21-32 mmol/L Normal 05-15-2017 [facility] (43578) Comment: Performed By: #### HEMDF, BM P3, PCAL ####[address] [place] [address] Glucose mass conc 106 70-100 mg/dL High 05-15-2017 [facility] (49526) Comment: Performed By: #### HEMDF, BM P3, PCAL ####[address] [place] [address] Urea nitrogen 11 7-25 mg/dL Normal 05-15-[address] [facility] (31386) Comment: Performed By: #### HEMDF, BM P3, PCAL ####[address] [place] [address] Calcium 8.5 8.2-10.1 mg/dL Normal 05-15-2017 [facility] (16116) Comment: Performed By: #### HEMDF, BM P3, PCAL ####[address] [place] [address] Chloride 105 98-109 mmol/L Normal 05-15-2017 [facility] (68545) Comment: Performed By: #### HEMDF, BM P3, PCAL ####[address] [place] [address] Potassium molar conc 3.9 3.5-5.1 mmol/L Normal 7 [facility] (86101) Comment: Performed By: #### HEMDF, BM P3, PCAL ####[address] [place] [address] Sodium 137 135-145 mmol/L Normal 05-15-2017 [facility] (19282) Comment: Performed By: #### HEMDF, BM P3, PCAL ####[address] [place] [address] Vital Signs Vital Sign Description Value / Unit Date Location The following section is limited to 5 en tries per type and includes entries from the following time range: [id number] - [id number] 4. Body Temperature 97.7 [degF] 06-25-2020 [facility] (37485) Body Temperature 98.2 [degF] [facility]99091[facility] Body weight 86.18 kg 06-25-2020 [facility] (59724) Body weight 86.18 kg 06-23-2020 [facility] (42093) BP Diastolic 54 mm[Hg] 06-25-2020 [facility] (37989) BP Diastolic 59 mm[Hg] 06-23-2020 [facility] (27058) BP Systolic 103 mm[Hg] 06-25-2020 [facility] (90727) BP Systolic 122 mm[Hg] 06-23-2020 [facility] (72487) Height 175.3 cm 06-25-2020 [facility] (33422) Height 175.3 cm 06-23-2020 [facility] (48599) Pulse (Heart Rate) 90 /min 06-25-2020 [facility] (40748) Pulse (Heart Rate) 83 /min 06-23-2020 [facility] anupam (92724) Pulse Oximetry 97 % 06-25-2020 [facility] (24280) Pulse Oximetry 97 % 06-23-2020 [facility] (93214) Respiratory Rate 16 /min 06-25-2020 [facility] (68232) Encounters Date Type Reason Provider Location 07-12-2017 Ambulatory Osteomyelitis of [employer] [facility] vertebra, site [facility] (000 00) unspecified Jesse Valdivia 06-27-2017 [facility] [K. 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) [facility] management of use of oral Jesse Valdivia System (0000 0) inpatient hypoglycemic drugs Jesse Valdivia 05-15-2017 Evaluation and Sepsis, unspecified Jesse Valdivia [facility] management of organism Jesse Valdiv[facility] (0000 0) inpatient [place] 06-25-2020 - Patient encounter Awaiting Pulm Fct Lab Pulmonary 06-25-2020 procedure transplantation of Main 6 [facility]on Medicine liver Comment: Spirometry 06-25-2020 - Patient Awaiting Anesthesia Tx Transplant 06-25-2020 encounter transplantation of [facility] procedure liver Comment: Liver transplant candidate; DIXON (nonalcoholic steatohep atitis) 06-24-2020 - Patient encounter Drug therapy [facility]cf Provider [facility] 06-24-2020 procedure finding Transplant Pharmacist Transplant Pharmacist Xi (Rn) José Miguel Bryant (Rn) José Miguel Win S [place] Tay Stokes Comment: Encounter for medication rev iew and counseling Patient Education 06-23-2020 - Patient Awaiting Win S Transplant [facility] er 06-23-2020 encounter transplantation of [place] procedure liver Comment: Liver transplant candidate; DIXON (nonalcoholic steatohep atitis) 05-22-2020 - Patient encounter External [facility] 05-22-2020 procedure Provider 03-17-2020 - Patient encounter Ccf Provider [facility] 03-17-2020 procedure 02-15-2020 - Patient encounter [facility]cf Provider [facility] 02-15-2020 procedure 02-06-2020 - Patient encounter Ccf Provider [facility] 02-06-2020 procedure 03-12-2019 - Patient encounter Ccf Provider [facility] 03-12-2019 procedure 01-27-2018 - Patient encounter Ccf Provider [facility] 01-27-2018 procedure 11-22-2017 - Patient encounter [facility]cf Provider [facility] 11-22-2017 procedure 07-26-2017 - Patient encounter Ccf Provider [facility] 07-26-2017 procedure 04-18-2017 - Patient encounter Ccf Provider [facility] 04-18-2017 procedure 06-24-2020 - Results Only Ccf Provider [facility] 06-24-2020 Win S Department [place] 05-22-2020 - Results Only External External-[facility] 05-22-2020 Provider 03-17-2020 Results Only [facility]cf Provider [facility] 02-15-2020 Results Only [facility]cf Provider [facility] 02-06-2020 Results Only [facility] Provider [facility] 03-12-2019 Results Only [facility] Provider [facility] 01-27-2018 Results [facility] 11-22-2017 Results Only [facility] Department 07-26-2017 Results [facility] 04-18-2017 Results Only [facility] Provider [facility] Department 06-24-2020 - Subsequent Awaiting Ct 2 Main Qb Radiology 06-24-2020 hospital visit by transplantation of (I-Stat) physician liver Comment: Liver transplant candidate [ Z76.82] 06-26-2020 - 06-26-2020 Telephone encounter [facility] Comment: Orders 06-24-2020 - Telephone Awaiting Xi (Rn) Transplant Cent er 06-24-2020 encounter transplantation of José Miguel liver Comment: Follow Up 06-20-2020 - Telephone encounter Omero (Rn) Transpla nt Center 06-20-2020 Aysha Comment: Pt. Ed ( Informed Consent) 06-19-2020 - 06-19-2020 Telephone encounter Liver Txp Coordinator Transplant Center Comment: Reminder Call OLT Eval Appt' s; COVID19 Screening 06-03-2020 - Telephone Tobacco use and Parvin (Rn) Transplant C enter 06-03-2020 encounter exposure - Cindi finding Comment: Referral - Liver Txp (Intake ) Referral - Liver Txp (Intake - LM) Procedures Procedure Name Date Provider Location Spmtry w/vc expiratory homero w/wo 06-25-2020 [facility] ([id number]) mxml vol vntj LVEF TRANSTHORACIC ECHO 06-24-2020 [facility] (48093) ALLOGEN SOT REC RPT 06-24-2020 [facility] Provider [facility] inic (73029) Ct abdomen w/contrast material 06-24-[address] [facility] (82696) Ct thorax w/contrast material 06-24-2020 [facility] (42045) [object Object] 06-23-2020 [facility] (45861) Comment: Result Comment: Total PSA te st methodology used is the Electrochemiluminescence Imm unoassay. Performed By: #### EBVG, VIT A, EVIT, LIPB, HFP, FERR, VZVG2, PTT, IRON, TOXP, BMP, TSH, HREMOP, SARAH LG, VITD, AHAVT, PT, PSAS1, HIV12C, AFP, CMVG, SYPHTX, CBCDIF ####[facility] [id number] [place], [place] [phone]#### A 1APHE ####[facility] [place], [place] [phone] Antibody screen 06-23-2020 [facility] (58559) Comment: Performed By: #### TSCR #### [facility] [id number] [place], [place] [phone] EXTERNAL LAB 05-22-2020 - 05-22-2020 External Provider [facility] (78403) EXTERNAL IMAGING 05-22-2020 - 05-22-2020 External Provider [facility] (74491) EXTERNAL PROCEDURE 05-22-2020 - 05-22-2020 External Provider [facility] (10244) EXTERNAL CARDIOLOGY 05-22-2020 External Provider [facility] (52987) XR OUTSIDE CD DICOM 03-17-2020 [facility]cf Provider [facility] IMPORT (24173) CT OUTSIDE CD DICOM 02-15-2020 Ccf Provider [facility]ORT (95296) XR OUTSIDE CD DICOM 02-06-2020 [facility]cf Provider [facility] (35975) US OUTSIDE CD DICOM 03-12-2019 [facility]cf Provider [facility]ORT (11552) CT OUTSIDE CD DICOM 01-27-2018 Ccf Provider [facility] (64606) US OUTSIDE CD DICOM 11-22-2017 [facility]cf Provider [facility] (53796) CT OUTSIDE CD DICOM 07-26-2017 [facility]cf Provider [facility] (05341) US OUTSIDE CD DICOM 04-18-2017 [facility] Provider [facility] (00242) Plan of Treatment Plan Description Date Location LIPID SCREEN LIPID SCREEN 06-23-2025 - [facility] 06-23-2025 (50905) PROSTATE CANCER PROSTATE CANCER 06-23-2025 - [facility] SCREENING DISCUSSION SCREENING DISCUSSION 06-23-2025 (39312 ) DIABETES SCREEN DIABETES SCREEN 06-23-2023 - [facility] 06-23-2023 (55049) DTAP,TDAP,TD (2 - Td) DTAP,TDAP,TD (2 - Td) 01-08-2023 - [facility] 01-08-2023 (17432) LUNG CANCER SCREENING LUNG CANCER SCREENING 06-24-2021 - [facility] 06-24-2021 (93782) ACTIVATED PTT ACTIVATED PTT Lab 06-23-2020 [facility] Routine Liver transplant 06-03-2021 ([id number]) candidate DIXON (nonalcoholic steatohepatitis) Expected: 06/23/2020, Expires: 06/03/2021 Comment: Expected: 06/23/2020, s: 06/03/2021 ALPHA 1 ANTITRYPSIN ALPHA 1 ANTITRYPSIN 06-23-2020 [facility] PHENOTYPE PHENOTYPE Lab Routine 06-03-2021 ([id number]) Liver transplant candidate DIXON (nonalcoholic steatohepatitis) Expected: 06/23/2020, Expires: 06/03/2021 Comment: Expected: 06/23/2020, s: 06/03/2021 ALPHA FETOPROTEIN BL ALPHA FETOPROTEIN BL Lab 06-23-2020 [facility] Routine Liver transplant 06-03-2021 ([id number]) candidate DIXON (nonalcoholic steatohepatitis) Expected: 06/23/2020, Expires: 06/03/2021 Comment: Expected: 06/23/2020, s: 06/03/2021 BASIC METABOLIC PNL BASIC METABOLIC PNL Lab 06-23-2020 - [facility] Routine Liver transplant 06-03-2021 ([id number]) candidate DIXON (nonalcoholic steatohepatitis) Expected: 06/23/2020, Expires: 06/03/2021 Comment: Expected: 06/23/2020, s: 06/03/2021 BLOOD TB SCREEN no information 06-23-2020 - 06-03-2021 [facility] (34412) Comment: Expected: 06/23/2020, s: 06/03/2021 CBC + DIFF CBC + DIFF Lab STAT Liver 06-23-2020 - [facility] transplant candidate DIXON ([id number] ) (nonalcoholic steatohepatitis) Expected: 06/23/2020, Expires: 06/03/2021 Comment: Expected: 06/23/2020, s: 06/03/2021 CMV IGG ANTIBODY BL CMV IGG ANTIBODY BL Lab 06-23-2020 - [facility] Routine Liver transplant 06-03-2021 ([id number]) candidate DIXON (nonalcoholic steatohepatitis) Expected: 06/23/2020, Expires: 06/03/2021 Comment: Expected: 06/23/2020, s: 06/03/2021 CREATININE BLD CREATININE BLD Lab Routine 06-23-2020 - [facility] Liver transplant candidate 06-03-2021 ([id number] 5) DIXON (nonalcoholic steatohepatitis) Expected: 06/23/2020, Expires: 06/03/2021 Comment: Expected: 06/23/2020, s: 06/03/2021 CT LIVER W IVCON CT LIVER W IVCON Radiology 06-23-2020 - [facility] Routine Liver transplant 07-03-2021 ([id number]) candidate DIXON (nonalcoholic steatohepatitis) Expected: 06/23/2020, Expires: 07/03/2021 Comment: Expected: 06/23/2020, s: 07/03/2021 CT CHEST WO IVCON CT CHEST WO IVCON Radiology 06-23-2020 [facility] Routine Tobacco use Liver 07-03-2021 ([id number] ) transplant candidate DIXON (nonalcoholic steatohepatitis) Expected: 06/23/2020, Expires: 07/03/2021 Comment: Expected: 06/23/2020, s: 07/03/2021 ECG COMPLETE ECG COMPLETE ECG Routine 06-23-2020 [facility] Liver transplant candidate 06-03-2021 ([id number] 5) DIXON (nonalcoholic steatohepatitis) Expected: 06/23/2020, Expires: 06/03/2021 Comment: Expected: 06/23/2020, s: 06/03/2021 ECHO ECHO Cardiology Routine Liver 06-23-2020 - 06-03 [facility] ([id number]) transplant candidate DIXON (nonalcoholic steatohepatitis) Expected: 06/23/2020, Expires: 06/03/2021 Comment: Expected: 06/23/2020, s: 06/03/2021 EMILIE-ORTEZ VCA IGG EMILIE-ORTEZ VCA IGG Lab 06-23-2020 - [facility] Routine Liver transplant 06-03-2021 ([id number]) candidate DIXON (nonalcoholic steatohepatitis) Expected: 06/23/2020, Expires: 06/03/2021 Comment: Expected: 06/23/2020, s: 06/03/2021 FERRITIN BLD FERRITIN BLD Lab Routine 06-23-2020 - [facility] Liver transplant candidate 06-03-2021 ([id number]) DIXON (nonalcoholic steatohepatitis) Expected: 06/23/2020, Expires: 06/03/2021 Comment: Expected: 06/23/2020, s: 06/03/2021 HEP A AB TOTAL HEP A AB TOTAL Lab Routine 06-23-2020 - [facility] Liver transplant candidate 06-03-2021 ([id number]) DIXON (nonalcoholic steatohepatitis) Expected: 06/23/2020, Expires: 06/03/2021 Comment: Expected: 06/23/2020, s: 06/03/2021 HEP REMOTE PANEL HEP REMOTE PANEL BL Lab 06-23-2020 - [facility] BL Routine Liver transplant 06-03-2021 ([id number]) candidate DIXON (nonalcoholic steatohepatitis) Expected: 06/23/2020, Expires: 06/03/2021 Comment: Expected: 06/23/2020, s: 06/03/2021 HEPATIC FUNCTION HEPATIC FUNCTION PNL Lab 06-23-2020 [facility] PNL Routine Liver transplant 06-03-2021 ([id number]) candidate DIXON (nonalcoholic steatohepatitis) Expected: 06/23/2020, Expires: 06/03/2021 Comment: Expected: 06/23/2020, s: 06/03/2021 HIV 1 2 COMBO(AG/AB),WITH HIV 1 2 COMBO(AG/AB),WITH 06-23-2020 - [facility] REFLEX TO DIFFERENTIATION REFLEX TO DIFFERENTIATION 06-03-2021 ([id number]) Lab Routine Liver transplant candidate DIXON (nonalcoholic steatohepatitis) Expected: 06/23/2020, Expires: 06/03/2021 Comment: Expected: 06/23/2020, s: 06/03/2021 IRON + TIBC IRON + TIBC Lab Routine Liver 06-23-2020 - 06-03 [facility] transplant candidate DIXON ([id number] ) (nonalcoholic steatohepatitis) Expected: 06/23/2020, Expires: 06/03/2021 Comment: Expected: 06/23/2020, s: 06/03/2021 LIPID PANEL BASIC LIPID PANEL BASIC Lab 06-23-2020 - [facility] Routine Liver transplant 06-03-2021 ([id number]) candidate DIXON (nonalcoholic steatohepatitis) Expected: 06/23/2020, Expires: 06/03/2021 Comment: Expected: 06/23/2020, s: 06/03/2021 LIVER REC INIT LIVER REC INIT W/U ALLOGEN 06-23-2020 - [facility] W/U Routine Liver transplant 06-03-2021 ([id number]) candidate DIXON (nonalcoholic steatohepatitis) Expected: 06/23/2020, Expires: 06/03/2021 Comment: Expected: 06/23/2020, s: 06/03/2021 PROTHROMBIN TIME/PT PROTHROMBIN TIME/PT Lab 06-23-2020 - [facility] STAT Liver transplant 06-03-2021 ([id number]) candidate DIXON (nonalcoholic steatohepatitis) Expected: 06/23/2020, Expires: 06/03/2021 Comment: Expected: 06/23/2020, s: 06/03/2021 PSA/PROSTSPECAG SCRN PSA/PROSTSPECAG SCRN Lab 06-23-2020 - [facility] Routine Encounter for 06-03-2021 ([id number]) screening for malignant neoplasm of prostate Liver transplant candidate DIXON (nonalcoholic steatohepatitis) Expected: 06/23/2020, Expires: 06/03/2021 Comment: Expected: 06/23/2020, s: 06/03/2021 RUBEOLA (MEASLES)IGG RUBEOLA (MEASLES)IGG Lab 06-23-2020 [facility] Routine Liver transplant 06-03-2021 ([id number]) candidate DIXON (nonalcoholic steatohepatitis) Expected: 06/23/2020, Expires: 06/03/2021 Comment: Expected: 06/23/2020, s: 06/03/2021 SPIROMETRY BASELINE SPIROMETRY BASELINE ONLY 06-23-2020 - [facility] ONLY Procedures Routine Liver 07-03-2021 ([id number]) transplant candidate DIXON (nonalcoholic steatohepatitis) Expected: 06/23/2020, Expires: 07/03/2021 Comment: Expected: 06/23/2020, s: 07/03/2021 SYPHILIS TOTAL SYPHILIS TOTAL W/REFLEX Lab 06-23-2020 - [facility] W/REFLEX Routine Liver transplant 06-03-2021 ([id number]) candidate DIXON (nonalcoholic steatohepatitis) Expected: 06/23/2020, Expires: 06/03/2021 Comment: Expected: 06/23/2020, s: 06/03/2021 TOX SCREEN ROUT TOX SCREEN ROUT UR Lab 06-23-2020 - [facility] UR Routine Liver transplant 06-03-2021 ([id number]) candidate DIXON (nonalcoholic steatohepatitis) Expected: 06/23/2020, Expires: 06/03/2021 Comment: Expected: 06/23/2020, s: 06/03/2021 TOXICOLOGY PANEL BLD TOXICOLOGY PANEL BLD Lab 06-23-2020 [facility] Routine Liver transplant 06-03-2021 ([id number]) candidate DIXON (nonalcoholic steatohepatitis) Expected: 06/23/2020, Expires: 06/03/2021 Comment: Expected: 06/23/2020, s: 06/03/2021 TRANSPLANT CONFIRM TRANSPLANT CONFIRM ABO/RH 06-23-2020 [facility] ABO/RH Blood Bank Routine Liver 06-03-2021 ([id number]) transplant candidate DIXON (nonalcoholic steatohepatitis) Expected: 06/23/2020, Expires: 06/03/2021 Comment: Expected: 06/23/2020, s: 06/03/2021 TSH BLD TSH BLD Lab Routine Liver 06-23-2020 - [facility] transplant candidate DIXON ([id number] ) (nonalcoholic steatohepatitis) Expected: 06/23/2020, Expires: 06/03/2021 Comment: Expected: 06/23/2020, s: 06/03/2021 TYPE + SCREEN TYPE + SCREEN Blood Bank 06-23-2020 - [facility] STAT Liver transplant 06-03-2021 ([id number]) candidate DIXON (nonalcoholic steatohepatitis) Expected: 06/23/2020, Expires: 06/03/2021 Comment: Expected: 06/23/2020, s: 06/03/2021 VARICELLA ZOSTER IGG VARICELLA ZOSTER IGG Lab 06-23-2020 - [facility] Routine Liver transplant 06-03-2021 ([id number]) candidate DIXON (nonalcoholic steatohepatitis) Expected: 06/23/2020, Expires: 06/03/2021 Comment: Expected: 06/23/2020, s: 06/03/2021 VITAMIN A/RETINOL VITAMIN A/RETINOL Lab 06-23-2020 [facility] Routine Liver transplant 06-03-2021 ([id number]) candidate DIXON (nonalcoholic steatohepatitis) Expected: 06/23/2020, Expires: 06/03/2021 Comment: Expected: 06/23/2020, s: 06/03/2021 VITAMIN D 25 VITAMIN D 25 HYDROXY Lab 06-23-2020 [facility] HYDROXY Routine Liver transplant 06-03-2021 ([id number]) candidate DIXON (nonalcoholic steatohepatitis) Expected: 06/23/2020, Expires: 06/03/2021 Comment: Expected: 06/23/2020, s: 06/03/2021 VITAMIN E/TOCOPHEROL VITAMIN E/TOCOPHEROL Lab 06-23-2020 - [facility] Routine Liver transplant 06-03-2021 ([id number]) candidate DIXON (nonalcoholic steatohepatitis) Expected: 06/23/2020, Expires: 06/03/2021 Comment: Expected: 06/23/2020, s: 06/03/2021 INFLUENZA (#1) INFLUENZA (#1) 2020 - [facility] 05-13-2020 ([id number]) PROSTATE CANCER SCREENING PROSTATE CANCER SCREENING 2012 - [facility] DISCUSSION DISCUSSION 2012 ([id number]) SHINGRIX VACCINE (1 of 2) SHINGRIX VACCINE (1 of 2) 2007 - [facility] 2007 ([id number]) COLORECTAL CANCER COLORECTAL CANCER 2007 - [facility] inic SCREENING,SEE MODIFIER SCREENING,SEE MODIFIER 2007 ([id number]) DIABETES SCREEN DIABETES SCREEN 2002 - [facility] 2002 ([id number]) LIPID SCREEN LIPID SCREEN 1992 - [facility] 1992 ([id number]) DTAP,TDAP,TD (1 - Tdap) DTAP,TDAP,TD (1 - Tdap) 1976 - [facility] 1976 ([id number]) HEPATITIS C SCREENING HEPATITIS C SCREENING 1975 - [facility] 1975 ([id number]) HIV SCREENING HIV SCREENING 1975 - [facility] 1975 ([id number]) ALLOGEN SOT REC RPT ALLOGEN SOT REC RPT Lab [facility] Routine 06/24/2020 9:19 AM ([id number]) EDT PHOSPHATIDYLETHANOL (PETH) PHOSPHATIDYLETHANOL (PETH) 06-24-2021 [facility] Lab Routine Liver ([id number]) transplant candidate 1 Occurrences starting 06/24/2020 until 06/24/2021 Comment: 1 Occurrences starting 06/24 until 06/24/2021 no information [facility] ([id number]) The following information is from the original human readable contentNot on file documented as of this encounterNot on filedocumented as of this encounterNot on filedocumented as of this encounterNot on filedocumented as of this encounterNot on filedocumented as of this encounterNot on filedocumented as of this encounter Not on filedocumented as of this encounterNot on filedocumented as of this encounterNot on filedocumented as of this encounterNot on filedocumented as of this encounterNot on filedocumented as of this encounterNot on filedocumented as of this encounterNot on filedocumented as of this encounterNot on filedocumented as of this encounterNot on filedocumented as of this encounterNot on file documented as of this encounterNot on filedocumented as of this encounterNot on filedocumented as of this encounterNot on filedocumented as of this encounterNot on filedocumented as of this encounterNot on filedocumented as of this encounter Not on filedocumented as of this encounterNot on filedocumented as of this encounterNot on filedocumented as of this encounterNot on filedocumented as of this encounterNot on filedocumented as of this encounterNot on filedocumented as of this encounterNot on filedocumented as of this encounterNot on filedocumented as of this encounterNot on filedocumented as of this encounterNot on file documented as of this encounterNot on filedocumented as of this encounterNot on filedocumented as of this encounterNot on filedocumented as of this encounterNot on filedocumented as of this encounter Immunizations Vaccine Notes Status Date Location Influenza Seasonal influenza, injectable, (completed) 06-12-2020 - [facility] Inj Quad Age 6 quadrivalent, 06-12-2020 ([id number]) Mo-64 Yrs Pres Free preservative free Influenza Seasonal influenza, injectable, (completed) 07-19-2019 - [facility] Inj Quad Age 6 quadrivalent, 07-19-2019 ([id number]) Mo-64 Yrs Pres Free preservative free Influenza Seasonal influenza, injectable, (completed) 07-14-2018 - [facility] Inj Quad Age 6 quadrivalent, 07-14-2018 ([id number]) Mo-64 Yrs Pres Free preservative free Influenza Seasonal influenza, injectable, (completed) 07-13-2017 - [facility] Inj Quad Age 6 quadrivalent, 07-13-2017 ([id number]) Mo-64 Yrs Pres Free preservative free Influenza influenza, seasonal, (completed) 2014 - [facility] injectable 2014 ([id number]) Pneumovax pneumococcal (completed) 05-03-2017 - [facility] polysaccharide vaccine, 05-03-2017 (441 95) 23 valent Tdap (Age 7+) tetanus toxoid, reduced (completed) 01-08-2013 - [facility] diphtheria toxoid, and 01-08-2013 (4419 5) acellular pertussis vaccine, adsorbed Payers Payer Name Policy Number Location [facility] [id number] [facility] (44 195) [facility] ([id number]) The following information is from the original human readable contentNo Payer Records FoundNo Payer Records FoundNo Payer Records FoundNo Payer Records FoundNo Payer Records Found Social History Type Social History Date Location Description [id number] Sex Assigned At Not on file [facility] ([id number]) Exposure to SARS-CoV-2 Unable to assess [facility] (event) (25904) Exposure to SARS-CoV-2 Not sure [facility] (event) ([id number]) Tobacco smoking status Former smoker 06-25-2020 - [facility] NHIS 06-25-2020 ([id number]) History of tobacco use Current smoker 03-15-2010 [facility] (85463) History of tobacco use Cigarette Smoker 03-15-2010 [facility] (43870) Cigarettes smoked 06-25-2020 - [facility] ic current (pack per day) 06-25-2020 ([id number]) - Reported Tobacco use and Never used 06-25-2020 - [facility] exposure 06-25-2020 ([id number]) The following information is from the original human readable contentNo Social History Records FoundNo Social History Records FoundNo Social History Records FoundNo Social History Records FoundNo Social History Records FoundNo Social History Records FoundNo Social History Records Found Reason for Referral Status Reason Specialty Diagnoses / Referred By Referred To Procedures Contact Contact Pending PCP Requested Ent - Diagnoses Liver transplant candidate DIXON (nonalcoholic steatohepatitis) [place] Referral Otolaryngology Procedures CONSULT TO ENT NEW PATIENT VISIT LEVEL [address] [place] [address] Status Reason Specialty Diagnoses / Referred By Referred To Procedures Contact Contact Pending Review PCP Requested Dermatology Diagnoses Liver transplant candidate DIXON (nonalcoholic steatohepatitis) [place] Referral Procedures CONSULT TO DERMATOLOGY NEW PATIENT VISIT LEVEL [address] [place] [address] Status Reason Specialty Diagnoses / Referred By Referred To Procedures Contact Contact Pending Review PCP Requested Cardiology Diagnoses Liver transplant candidate DIXON (nonalcoholic steatohepatitis) [place] Referral Procedures CONSULT TO CARDIOLOGY NEW PATIENT VISIT LEVEL [address] [place] [id number] Status Reason Specialty Diagnoses / Referred By Referred To Procedures Contact Contact Pending Review PCP Requested Nutrition Diagnoses Liver transplant candidate DIOXN (nonalcoholic steatohepatitis) [place] Referral Procedures CONSULT TO NUTRITION THERAPY NEW PATIENT VISIT LEVEL [address] [place] [id number] Status Reason Specialty Diagnoses / Referred By Referred To Procedures Contact Contact Pending PCP Requested Infectious Diagnoses Liver transplant candidate DIXON (nonalcoholic steatohepatitis) [place] Referral Diseases Procedures CONSULT TO INFECTIOUS DISEASES NEW PATIENT VISIT LEVEL [address] [place] [address] Status Reason Specialty Diagnoses / Referred By Referred To Procedures Contact Contact Pending Review PCP Requested Diagnoses Liver transplant candidate DIXON (nonalcoholic steatohepatitis) [place] Referral Procedures CONSULT TO HEPATOLOGY NEW PATIENT VISIT LEVEL [address] [place] [address] Status Reason Specialty Diagnoses / Referred By Referred To Procedures Contact Contact Pending PCP Requested Anesthesiology Diagnoses Liver transplant candidate DIXON (nonalcoholic steatohepatitis) [place] Referral Procedures CONSULT TO ANESTHESIOLOGY NEW PATIENT VISIT LEVEL [address] [place] [address] Assessments Diagnosis Encounter for screening for malignant ne oplasm of prostate - Primary Special screening for malignant neoplasm of prostate Tobacco use Tobacco use disorder Liver transplant candidate DIXON (nonalcoholic steatohepatitis) Other chronic nonalcoholic liver disease Diagnosis Encounter for medication review and coun seling Other specified counseling Diagnosis Liver transplant candidate - Primary Diagnosis Liver transplant candidate DIXON (nonalcoholic steatohepatitis) Other chronic nonalcoholic liver disease Diagnosis Tobacco use Tobacco use disorder Liver transplant candidate DIXON (nonalcoholic steatohepatitis) Other chronic nonalcoholic liver disease Diagnosis Liver transplant candidate DIXON (nonalcoholic steatohepatitis) Other chronic nonalcoholic liver disease Diagnosis Dyspnea, unspecified type - Primary Liver transplant candidate DIXON (nonalcoholic steatohepatitis) Other chronic nonalcoholic liver disease Summary Purpose Family History No Family History Records FoundNo Family History Records FoundNo Family History Records FoundNo Family History Records Found Advance Directives No Advanced Directives Records FoundNo Advanced Directives Records FoundNo Advanced Directives Records FoundNo Advanced Directives Records Found History of Present Illness Sunny (Senior Administrative Associate)Olivier - 06/24/2020 1:30 PM EDT Pre-Transplant Pharmacotherapy Evaluation Patient Name: Becky Hutchison Date of Service: June 24, 2020 Mr. Hutchison is a 64 year old male who presents to the clinic today for pre-liver transplantation pharmacotherapy evaluation. Patient presents to clinic with DIXON. MELD-Na score 22. PMH includes obesity, hypertension, CAD (PCI 2010 s/p NE), depression, anxiety, BPH, COPD. Allergies: ALLERGIES Not on File Preferred Pharmacy e- [facility] [place] [phone] - [address] [facility] - [phone] [facility] [phone] Evaluation of current pharmacotherapy: Current Outpatient Rx Medication Sig Dispense Refill ? sertraline (ZOLOFT) 50 mg tablet Take 50 mg by mouth once daily. ? spironolactone (ALDACTONE) 100 mg tablet Take 200 mg by mouth once daily. ? rifAXIMin (XIFAXAN) 550 mg tablet Take by mouth twice daily. ? furosemide (LASIX) 40 mg tablet Take 40 mg by mouth once daily. ? carvedilol (COREG) 6.25 mg tablet Take 6.25 mg by mouth twice daily with meals. ? Methylcellulose, Laxative, (CITRUCEL) 500 mg tab Take by mouth. ? esomeprazole (NEXIUM) 20 mg capsule Take 20 mg by mouth DAILY (6 AM). ? lactulose (CONSTULOSE ORAL) Take by mouth. ? Lactobac no.41/Bifidobact no.7 (PROBIOTIC-10 ORAL) Take by mouth. ? perflutren lipid microspheres (DEFINITY) 1.1 mg/mL injection (to be provided with echo procedure) Inject 1.3 mL intravenously as needed for up to 1 dose. Instructions Administration Instructions: If no IV access, insert saline lock prior to administering contrast. Discontinue saline lock post exam. If patient has central line or IVAD, may access for administration according to line specific nursingprotocol. Once exam is complete, flush line and de-access per line specific nursing protocol. Diluted IV Bolus: Dilute 1.3 ml of Definity with 8.7 ml of preservative-free saline 1.3 mL 0 ? COMBIVENT RESPIMAT 20-100 mcg/actuation inhaler Inhale 1 Puff as instructed four times daily. ? fluticasone propion/salmeterol (ADVAIR DISKUS INHALATION) Inhale as instructed. Medication reconciliation: Completed OTC/Herbal medications: None Anticoagulation: Not currently prescribed OARRS review: Data consistent with prescription history Social History: Tobacco: History of use: quit 03/15/2010 ETOH: Denies Illicit drugs: Denies Adherence Assessment: ? Medications managed by: Family member ? Patient brought: Medication list ? Patient knows name, indications, dose, frequency of his/her medications? 100% ? Do you sometimes forget to take your medicine?: No ? Over the past two weeks, were there any days when you did not take your medicine?: No ? Have you ever cut back or stopped taking your medication without telling your doctor, because you felt worse when you took it?: Yes (Combivent and Advair) ? When you travel or leave home, do you sometimes forget to bring along your medications?: No ? Do you have a good support system at home where someone can help you manage your medications post-transplantation until you are able to do so on your own?: Yes Vaccination History Review: There is no immunization history on file for this patient. May consider the following vaccinations prior to transplantation: ? HBV, Prevnar and Shingrix Comorbidity Monitoring ? Blood Pressure: 100/48mmHg (normally ~120/80 at home) ? Carvedilol 6.25mg BID ? Cholesterol: LDL Cholesterol: 42 (06/23/2020) ? Diabetes: HBA1C: 5.3% (2017 - no current h/o diabetes) ? Thyroid: TSH: 3.380 (06/23/2020) ? Bone health: Vitamin D 25 Hydroxy: 15.0 (06/23/2020) ? Mental health: depression, anxiety ? Sertraline 50 mg every day Education provided: Patient was given an overview of immunosuppressant therapy and was provided an example MedActionPlan. Patient was educated on expected adverse effects and the importance of adherence to transplant medication regimens. All questions were answered to patient?s satisfaction. Patient was informed to contact the clinic if any questions or concerns arise. VISIT SUMMARY ? Potential drug-drug interaction with immunosuppressant regimen: No ? Anticipate post-transplant medication regimen non-adherence? No ? Factors affecting learning: None Time spent completing evaluation: 30 minutes There are no medication issues identified that would preclude transplant in this patient. Ryland Woods, PharmD PGY2 Solid Organ Transplant Senior Administrative Associate [phone] documented in this encounterXi Barksdale (Rn), RN - 06/24/2020 4:33 PM EDT Met with patient/family to discuss the following information: [x] Patient was provided the Surgical Site Infection FAQ sheet [x] SRTR information provided and questions answered. Informed patient to call public information coordinator with any questions [x] Patient was provided the [facility]OS brochure on multiple listing and waiting time transfer [x]Evaluation process including presentation to selection committee, [facility]OTC approval and listing criteria reviewed [x]Surgical procedure, including post-operative management, hospitalization, lifelong immunosuppressive medications and their side effects (including the risk for hypertension, diabetes, kidney problems and cancers) and [facility] follow up after transplant. Possibility of recurrent disease discussed with patient. [x]Patient is aware of the potential medical, surgical or psychosocial risks [x] Patient is aware that they will need a patient care secretary to be available for the first 8-12 weeks after discharge from the hospital. [x] Patient informed that in order to maintain their UNOS listing status periodic test will be required. If they fail to keep appointments or to undergo required lab testing, listing status may be affected. [x]Discussed organ donor risk factors, including potential risk of developing transmissible disease including but not limited to HIV, hepatitis B and C, malaria, and malignancy during liver transplant. [x]Patient advised that they may be asked to consider donors with positive lab results such as Hepatitis B or Hepatitis C, depending on their circumstances [x]Patient was advised of his/her right to decline offers for transplant without any penalty [x]Patient was advised that he/she can refuse transplantation at any time prior to transplant without any penalty. [x]Patient was advised that if they choose not to proceed with transplant, alternative treatment will be provided. Alternative treatment may include medications to control fluid buildup or medications to prevent confusion. [x] Patient told their protected health information would be released to OSOTC and UNOS in order to be placed on the UNOS waiting list for a donor organ. [x] Patient told that my medical information and procedures, without revealing my identity may be used for teaching and research activities. [x] Patient told they are responsible for arranging for payment for costs that are not covered by insurance. Patient advised that insurance approval is needed prior to listing. [x] Patient told that the [facility] is a teaching facility and part of care, underthe guidance of my physicians, may be conducted by [employer], [place] and students. [x]Patient advised that transplants not performed in a medicare-approved hospital may negatively affect payment for medication coverage by Medicare Part B. [x]We make every attempt to provide transplant services 24 hours per day. We would notify you of anyclosure and assist in making alternative transplant arrangements. [x] Patient told they are responsible for arranging for payment for costs that are not covered by insurance. Patient advised that insurance approval is needed prior to listing. [x] Patient told that the [facility] is a teaching facility and part of care, underthe guidance of my physicians, may be conducted by [employer]idents, [place] and students. [x]Patient advised that transplants not performed in a medicare-approved hospital may negatively affect payment for medication coverage by Medicare Part B. [x]We make every attempt to provide transplant services 24 hours per day. We would notify you of anyclosure and assist in making alternative transplant arrangements. AMBULATORY PATIENT EDUCATION NOTE PRE-OP TEACHING PROCEDURE: Liver transplant READINESS TO LEARN COGNITIVE ABILITY: Alert and oriented MOTIVATION TO LEARN: Disinterested / avoidant FAMILY SUPPORT: High - Very involved in pt care INSTRUCTION PROVIDED TO: Patient and Spouse PATIENT LEARNS BEST BY: Multiple Methods FACTORS AFFECTING LEARNING: None PHYSICAL LIMITATIONS AFFECTING LEARNING: Fatigue LEARNING RESPONSE DIAGNOSIS: DIXON METHOD OF INSTRUCTION: Written instruction - handouts Verbal instruction PATIENT / FAMILY RESPONSE: Information received as demonstrated by interest and questions FOLLOW-UP PLAN: Patient instructed to call with any further issues Contact information given. SUPPLEMENTAL MATERIAL: None REFERRAL (RECOMMENDATION): None Electronically Signed By: Xi Barksdale RN In Department: TRANSPLANT CENTER documented in this encounterXi BarksdaleRn) RN - 06/24/2020 4:35 PM EDT Patient provided dental clearance form completed by local dentist. Pt seen 06/12/20 and is free from active disease and infection, no work needs to be completed at this time. Dental office phone [phone]. Form in file. Xi Barksdale RN documented in this encounterWin Chaudhari CT (Ct) - 06/24/2020 8:00 AM EDT Radiology Service Progress Note PATIENT NAME: Becky Hutchison DATE OF SERVICE: June 24, 2020 TIME: 8:16 AM PATIENT IDENTITY VERIFICATION COMPLETED USING TWO (2) IDENTIFIERS: Name and Date of confirmed by patient verbally and Name and Date of confirmed by identification band. FALL SCREENING: Has the patient had 2 falls in the last year or 1 fall with injury or currently using an Ambulatory Assistive Device (Walker, Cane, Wheelchair, Crutches, etc.)? Yes, Patient High Risk for Falls What interventions were put in place to prevent falls during this visit? Increased Observations by Caregivers PATIENT GENDER DATA: Male PATIENT RELEVANT IMPLANT DATA REVIEWED: Yes RADIOLOGY DEPARTMENT: CT; Exam(s) Completed: Chest and Liver PERIPHERAL IV DATA: Site assessment: Clean,Dry and Intact, Site disposition Discontinued SIGNED BY: BENITEZ Nicole June 24, 2020 8:16 AM Sirena Ibrahim (Rn), DIMITRIOS - 06/24/2020 8:00 AM EDT Radiology Service Progress Note DATE OF SERVICE: June 24, 2020 TIME: 8:09 AM PATIENT WEIGHT: 190LBS PATIENT IDENTITY VERIFICATION COMPLETED USING TWO (2) STANDARD IDENTIFIERS: Name and Date of confirmed by patient verbally and Name and Date of confirmed by identification band. FALL SCREENING: Has the patient had 2 falls in the last year or 1 fall with injury or currently using an Ambulatory Assistive Device (Walker, Cane, Wheelchair, Crutches, etc.)? Yes, Patient High Risk for Falls What interventions were put in place to prevent falls during this visit? [place] Falls Risk Wristband Applied and Offered Assistance with Transfers/Clothing PATIENT GENDER DATA: Male ALLERGIES: Reviewed and unchanged CONTRAST ALLERGY: No EXAM: CT -CONTRAST INDUCED NEPHROPATHY RISK FACTORS: Patient age > 60 years, Diabetic: No and History of Kidney surgery, Kidney neoplasm, Liver disease, and/or any recent Nephrotoxic Chemotherapy or otherNephrotoxic medications CREATININE: Creatinine Date Value Ref Range Status 06/23/2020 0.90 0.73 - 1.22 mg/dL Final eGFR-All Other Races Date Value Ref Range Status 06/23/2020 >60 . Final Comment: eGFR (Estimated GFR) Units of measure: mL/min/1.73 meters squared eGFR is derived from the reexpressed MDRD Study equation using the following parameters: serum creatinine, age, gender and race. The creatinine assay has been calibrated to be traceable to IDMS. An eGFR <60 mL/min/1.73m2 for >3 months is consistent with chronic kidney disease. Refer to KDOQI guidelines for clinical interpretation. In patients with unstable renal function, e.g. those with acute kidney injury, the eGFR may not accurately reflect actual GFR. eGFR- Date Value Ref Range Status 06/23/2020 >60 Final P.O.C.T. RESULTS: N/A June 24, 2020 TREATMENT: No Hydration needed. IV SITE: Ambulatory: A peripheral IV was started in the Right antecubital site with a Angio cath: 20gauge. and A Saline lock was inserted per protocol IV SITE APPEARANCE: Clean,Dry and Intact SIGNATURE: Sirena Ibrahim RN PATIENT NAME: Becky Hutchison DATE: June 24, 2020 TIME: 8:09 AM documented in this encounterPerri Ware LSW - 06/26/2020 1:54 PM EDT OLTx Psychosocial Evaluation Name: Becky Hutchison Assessment date: June 26, 2020 Location: Pt and are located in their home and are being seen virtually due to Covid 19 precautions. Patient consented to participate in this transplant psychosocial assessment: Yes During this assessment, patient chose to include: Pt agrees to have his [place] Hutchison participate in the assessment. IDENTIFYING INFORMATION: Patient prefers to be called: Rosi Age: [age] year old Lives now: Becky Hutchison [id number] [facility] [id number] [address] [facility] IMPRESSION: Social Support Pt has strong support from his [place] who will be his primary caregiver post-transplant. Pt's secondary caregivers will be his son Baldomero and daughter Carmen. Insurance/Financial Pt medical / prescription coverage is under [employer] and is transitioning to [place] [facility] disability policy through his work. Pt will have [place] [facility] disability until he reaches the age to receive Social Security benefits. No issues or problems have been reported about pt financial situation. Chemical Dependency Patient reports he began smoking cigarettes when he was 20 and quit March 15 2010 when he had a heart attack. Pt reports he averaged 2 packs a day for 35 yrs. Patient admits to a remote history of marijuana use but has not used for more than 42 years. Patientstated he smoked marijuana weekly and discontinued all use when his first child was born. Pt denies other illicit drug use. Patient reports his last drink was 3 years ago. Pt stated he usually consumed alcohol on weekends and would consume 3-4 beers per episode. Pt had utox screen completed on 06/23/2020 which returned slightly elevated for ethanol: [ Ethanol, Urine <11 mg/d 14 High]. Patient denies alcohol use and a Peth test was requested. Pt will be monitored and have screening moving forward. Patient does not meet DSM V criteria for Alcohol Use Disorder and therefore meets [facility] chemical dependency guidelines. Mental Health/Coping Although patient states no history of mental health concerns patient is currently taking Zoloft. Patient started taking Zoloft during a 2 month hospital stay a few years ago to help him remain calm andhelp with anxiety. Patient continues with Zoloft because he finds it to be helpful. Compliance Patient has good adherence to his medical appointments and medication regimen. Patient's manages his medication. Comprehension of Medical Issues and Transplant Patient states he has a good understanding of his current medical condition and receives help with his comprehension of medical information from his . Patient reports he is surprised at the speed his illness is progressing. PLAN: Are there any interventions, follow up or consults needed: Yes Patient will need to be monitored for alcohol use through testing. RECOMMENDATION: Psychosocial risk: (related to patient's ability to adhere to a transplant regimen and be successful) Patient presented as a low psychosocial risk and is suitable for transplant however patient's ethanol levels will need to be monitored through repeat tox screens to ensure continued abstinence from allalcohol. SIPAT Total Score: 19 SIPAT Score Interpretation 0 - 6 Excellent candidate ? Recommend to list for transplantation without reservations. 7 - 20 Good candidate ? Recommend to list for transplantation - although monitoring of identified risk factors may be required. 21 - 39 Minimally Acceptable Candidate ? Consider Listing. Identified risk factors must be satisfactorily addressed before representing forconsideration. 40 - 69 Poor Candidate ? Recommend deferral while identified risks are satisfactorily addressed. > 70 High Risk candidate, significant risks identified ? Surgery is not recommended while identified risk factors continue to be present. UNDERSTANDING OF MEDICAL DIAGNOSIS & NEED FOR TRANSPLANT: Diagnosis: Cirrhosis of the liver - [place] Diagnosed when: November 2017 Symptoms: Meld of 22, fluid on stomach. anemic, juandice, tired, fatigued Meld Score: MELD-Na score: 22 at 06/23/2020 3:55 PM MELD score: 17 at 06/23/2020 3:55 PM Calculated from: Serum Creatinine: 0.90 mg/dL (Rounded to 1 mg/dL) at 06/23/2020 3:55 PM Serum Sodium: 131 mmol/L at 06/23/2020 3:55 PM Total Bilirubin: 7.1 mg/dL at 06/23/2020 3:55 PM INR(ratio): 1.3 at 06/23/2020 3:55 PM Age: 64 years 10 months PCP: Dr. Valdivia Do you have any moral, methodist, or ethnic views against transplant: no Have you ever been transplanted, evaluated, or listed at another center: No PERSONAL HISTORY: Citizenship Where were you born: [facility] Race/ethnicity: White Primary language: Moldovan Grew up where: [place] Parental information: Both parents Sibling information: 4 brothers, pt is the oldest Describes upbringing as: Liked it- grew up in the in the same home he currently is in. Pt lived nearhis grandparents and visited them often Ever ill, abused, neglected as a child: No Do you have any history of developmental delays/special education/PT/OT/SP: No Any reading/comprehension problems then or now: No How was school for you: Okay- Completed an agricultural program in last 2 years of high school. 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 Now on disability (long-term) Relationship History & Current Status: 42 years to [place] Children: 3 children, 2 daughters and one son; one daughter is in [place] FUNCTIONING ABILITIES & HOME ENVIRONMENT: Home set up: Split level- 5 steps total. Had back surgery 5 years ago and equipped the home at that time with appropriate items that provides assistance to pt in the home, handle bars in the tub, shower seat, etc. Resides with: Pets: 2 cats ADLs: Independent, sometimes will help pt IADLs: Independent is able but completes Do you drive? Yes but has been driving. Experienced some symptoms of HE If you don't or can't due to illness, who will transport: Can patient and/or patient care secretary identify the medications: Pt is aware but manages medication for pt at this time What system does the patient use to organize the medications: organizes weekly pill box Caregiving for others? No Impact of illness on daily life: Fatigue, had to quit his job. Lost muscle tone. HOBBIES: What are your hobbies/interests: Dulce jw Covid 19, camping at their camper located on a permanent campsite FINANCIAL: Medical insurance: [employer] through Pt employment. 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 Medical leave: N/A Provided patient with financial worksheet for financial planning: Verbally reviewed CAREGIVER/SUPPORT PLAN: Who will be your primary caregiver: [place] Hutchison Contact #: [phone] Availability: is a analyst programmer and can take time off as needed and states she is planning to quit if pt has a liver transplant. 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 1. If several caregivers are involved, will they be able to cooperate with each other: Yes 2. How comfortable are you asking for and/or receiving help: Pt states it depends on what it is he needs help with. Lately more open to asking for help 3. Have you been or are you currently a caregiver for someone else: no 4. Are there any ongoing family disagreements or life issues that may be impacted by the transplant:No 5. Does anyone in your household or caregiving team use tobacco, abuse alcohol or illicit substances: no Has the caregiver commitment been reviewed: Verbally Has it been signed: no MENTAL HEALTH HISTORY: Indicate mental status: Status: Alert Lethargic Inconsistent Sedated/other: Orientation: Person Place Time Situation Patient had difficulty hearing SW through Zoom. repeated questions to patient. Indicate cognitive function: Attentive: Yes Memory problems: yes- every once in a while Hepatic Encephalopathy: Yes *if yes, is it related to another medical condition: No Indicate appearance: Malnourished Obese Poor hygiene Body image concerns Appears stated age Well groomed Other: Indicate affect: Within normal limits Easily engaged in conversation Cooperative Flat Angry Anxious Blunted Dysphoric Euphoric Other: Do you have a history of clinical mental health issues: Reports no history of mental health issues but is on antidepressants (Zoloft). Started when he was hospitalized for 2 months to help with anxietyand calm him. Depression: Anxiety Panic attacks Bipolar disorder Schizophrenia OCD Anorexia Bulimia ADHD PTSD BPD Other:Currently taking Zoloft- in hospital for 2 months and continued- found it helpful. Life changing events as an adult: Yes, heart attack, lost an eye when he was 28 while working. Has anyone ever physically/emotionally/sexually abused you: No Have you ever attempted suicide or thought of harming yourself or others: No Have you ever been hospitalized in a psychiatric hospital: No Do you currently or have you ever seen a therapist/counselor/psychiatrist: No Have you used medications for mental health issues, sleep, and/or pain now or in the past: Zoloft only Is a referral to transplant psychiatry indicated for further evaluation or screening: No COPING: What helps you cope when you're feeling stressed: Being around and talking to his Are you a spiritual or methodist person: sometimes, believes in God What are the stressors in your life: Used to have stress with work - not now Have you ever coped by using a substance (food, tobacco, drugs, alcohol): Used to smoke CHEMICAL DEPENDENCY: Tobacco Have you ever smoked/chewed tobacco: Began when he was 20 and quit March 15, 2020. Pt reports smoking 2 packs for 35 yrs Cessation resources discussed & explained: Drugs Have you ever used any illicit drugs: Marijuana: When he was a teenager, before children. Weekly use Cocaine: No Heroin: No Any IV use: No If yes to any drugs, when was your last use: 42 years ago Was a tox screen done: Yes- utox screen completed 06/23/2020 and displayed elevated ethanol Ethanol, Urine <11 mg/dL 14High Patient denies any alcohol use Are you currently taking any prescribed narcotics: no Alcohol Do you drink any alcohol: No- past When was the last time you consumed any alcohol at all: Pt reports it has been 3 years since his last drink When did you start drinking/using: Age 20 History of use: weekend 3 - 4 beers What did you use or drink: Beer How much: 3-4 beers Period of heaviest drinking/use: None reported Within in the past 12 months: How many times per week (or month) did you drink/use: None within the last year How much did you use on average per occasion: N/A When you were first diagnosed with your liver disease, were you told to stop drinking/using substances: No- but knew that he should not be drinking If yes, were you able to stop at that time: Alcohol/drug use consequences: No Rehab history: None DSM-V Severity Factors 1. The substance is often taken in larger amounts or over a longer period than was intended: no 2. There is a persistent desire or unsuccessful effort to cut down or control use of the substance: No 3. A great deal of time is spent in activities necessary to obtain the substance, use the substance,or recover from its effects: No 4. Craving, or a strong desire or urge to use the substance: No 5. Recurrent use of the substance resulting in a failure to fulfill major role obligations at work, school, or home: No 6. Continued use of the substance despite having persistent or recurrent social or interpersonal problems caused or exacerbated by the effects of its use: No 7. Important social, occupational, or recreational activities are given up or reduced because of useof the substance: No 8: Recurrent use of the substance in situations in which it is physically hazardous: No 9: Use of the substance is continued despite knowledge of having a persistent or recurrent physical or psychological problem that is likely to have been caused or exacerbated by the substance: No 10. Tolerance, as defined by either of the following: No A. A need for markedly increased amounts of the substance to achieve intoxication of desired effect B. A markedly diminished effect with continued use of the same amount of the substance 11. Withdrawal, as manifested by either of the following: No A. The characteristic withdrawal syndrome for that substance (as specified in the DSM-V for each substance) B. The substance (or a closely related substance) is taken to relieve or avoid withdrawal symptoms. 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 re: knowledge of transplant: Pt reports his has been researching transplant and shares information with him The patient best learns new information: Verbal- likes to have explain to him because she does research The caregiver best learns new information: Verbal Know a txp patient: No Volunteer to contact: Have read stories of other transplant pts. 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 Compliance concerns: No problems Ability to adhere to a therapeutic regimen: Motivation for a transplant: Agrees with the decision and wants to be around for his Is anyone interested as a living donor: Brother, Eliel Hutchison who is 58. Has filled out online forms PSYCHOSOCIAL RISKS: Reviewed psychosocial risks of transplant:adherence treatment protocols, ability to understand transplant center's system of care, active psychiatric diagnosis, financial resources or support, body image/scar: Yes reviewed Discussed MELD score, evaluation process, selection committee, listing, waiting, the call, surgery, hospital recovery time, hospital stay, discharge, [facility] recovery. Yes reviewed ADVANCE DIRECTIVES: Durable power of title attorney: Pt and are interested. SW provided education and will mail as requested Living will: None Information given: Will mail if pt is not able to obtain on line or at next [facility] appointment. Overall impression, plan, and recommendation are listed at the beginning of the assessment for ease of communication and continuity of care purposes. EDGARD Alvarez, [facility] Liver Transplant Team Social Work documented in this encounterOWin Prater - 06/23/2020 2:39 PM EDT 64 yo man referred for further evaluation of need for OLT by Dr. 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 Patient had PCI in 2009 s/p NE. Since then, no stresstest. Patient was 2 pck/day smoker for 35 years and quit in 2009. Anesthesia for transplantation with risks, benefits, and alternatives was discussed with patient including the participation of anesthesiology residents, invasive monitoring, massive blood transfusion,and possibility of prolonged intubation. The patient and/or family appears to understand and wishes to proceed. SUBJECTIVE: CHIEF COMPLAINT: Consultation for liver transplant evaluation. HPI: This is a 64 year old male who presents with end-stage liver disease from DIXON complicated by the following:Ascites (past treatments include tap for fluid), Encephalopathy (past treatments includemedical treatment), Episodes of Esophageal Varices Bleeding (past treatments include EGD/banding), Portal Hypertension, anemia, and Thrombocytopenia . Patient has had cirrhosis for 2 year(s). No prior liver evaluations.. . The patient also has the following active medical conditions to be considered in their evaluation: DM, HTN, Sarcopenia Patient Currently has the Following Access: None There is no problem list on file for this patient. PAST MEDICAL HISTORY Diagnosis Date ? Ascites ? Atrial fibrillation (HCC) 01 episode in 2017 during acute illness ? CAD (coronary artery disease) ? Cirrhosis (HCC) ? COPD (chronic obstructive pulmonary disease) (HCC) ? Depression ? Diabetes (HCC) No meds currently ? Esophageal varices (HCC) s/p banding ? Fatigue ? Former heavy cigarette smoker (20-39 per day) 2 PPD, quit 2009 ? H/O acute renal failure 2016 2 separate episodes requiring short term dialysis (4 treatments each time) ? H/O Clostridium difficile infection ? H/O heart artery stent 2009 ? Hemorrhoid ? Hepatic encephalopathy (HCC) ? SARWAT (iron deficiency anemia) ? NE, 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 ? Thrombocytopenia (HCC) PAST SURGICAL HISTORY Procedure Laterality Date ? BACK SURGERY HX ? EYE SURGERY HX artificial eye ? LAPAROSCOPIC CHOLECYSTECTOMY ? OTHER SURGICAL HISTORY (PLEASE SPECIFY) HX facial surgery secondary to accident No family history on file. SOCIAL HISTORY: Social History Tobacco Use ? Smoking status: Former Smoker Packs/day: 2.50 Years: 30.00 Pack years: 75.00 Types: Cigarettes Quit date: 03/15/2010 Years since quittin.2 ? Smokeless tobacco: Never Used Substance Use Topics ? Alcohol use: Not on file ? Drug use: Not on file MEDICATIONS: @IPMED@ ALLERGIES: ALLERGIES Not on File OBJECTIVE REVIEW OF SYSTEMS: PAIN ASSESSMENT: Negative for pain, history of chronic pain, or current treatment for a chronic paincondition. GENERAL: Weight loss with tap and diuresis. Fatigued HEENT: No TMJ, dentition or trach. Artifical right eye NECK: Negative for lumps, goiter, pain and significant neck swelling. RESPIRATORY: Negative. CARDIOVASCULAR: Negative for chest pain, leg swelling or palpitations. GI: Diarrhea. : No history of dysuria, frequency or incontinence. No difficulty urinating, nocturia > 1 time per night or hematuria. MUSCULOSKELETAL: Negative for joint pain or swelling, back pain or muscle pain. SKIN: Negative for lesions, rash, and itching. PSYCH: Negative. HEMATOLOGY/LYMPHOLOGY: Negative for prolonged bleeding, bruising easily or swollen nodes. ENDOCRINE: Negative for cold or heat intolerance, polyuria, polydipsia and goiter. NEURO: No history of headaches, syncope, paralysis, seizures or tremors. PHYSICAL EXAM: VITAL SIGNS: BP 103/54 Pulse 90 Temp 36.5 ?C (97.7 ?F) Resp 16 Ht 175.3 cm (5' 9) Wt 86.2kg (190 lb) SpO2 97% BMI 28.06 kg/m? GENERAL: Alert. Cooperative. HEENT: PATIENT INTUBATED AND/OR HAS TRACHEOSTOMY: No MOUTH OPENING/TMJ: Full jaw ROM MICROGNATHIA/OVERBITE: No MALLAMPATI SCORE: MP 1 DENTITION: Edentulous/dentures THYROMENTAL DIST: WNL SHORT NECK: No NECK FLEX: Full ROM. NECK EXTENSION: Full ROM. NECK: No carotid bruits, no neck mass or tracheal deviation. SKIN: Skin color, texture, turgor normal, no suspicious rashes or lesions. CARDIAC: Regular rate and rhythm. LUNGS: Rhonchi mild bilateral. NEURO: Grossly normal, no focal deficits. ABDOMEN: Ascites. MUSCULOSKELETAL: Spine range of motion normal. Muscular strength intact. ADVERSE ANESTHESIA EVENT: No history of adverse event. INTUBATION HISTORY: History of general anesthesia without difficulty. Patient WILL accept blood products while under anesthesia during surgery. PLANNED ANESTHETIC: General SPECIAL ANESTHESIA CONSIDERATIONS: Not applicable for this patient. POST-OP PAIN MANAGEMENT PLAN: PRN and/or IV narcotics per PCP. DATA: Diagnostic tests reviewed for today's visit: EKG Reading: NORMAL SINUS RHYTHM LOW VOLTAGE QRS, CONSIDER PULMONARY DISEASE, PERICARDIAL EFFUSION, OR NORMAL VARIANT. QTC 518 Stress Test: Not done. Echocardiogram: 06/24/2020 The left ventricle is normal in size. Left ventricular systolic function is mildly decreased. EF = 52 ? 5% (2D biplane) Normal left ventricular diastolic function. Regional wall motion abnormalities as above. - The right ventricle is normal in size. Right ventricular systolic function is normal. - The left atrial cavity is mildly dilated. - 1+ TR - Trivial pericardial effusion - Ascites Cardiac Cath: Pending PFT Test: Pending CT Scan: 06/24/2020 Distal paraesophageal varices. Minimal upper lobe predominant centrilobular and paraseptal emphysema. Outside Hospital Records: N/A Laboratory and Testing: Lab Value Units Date High Low HB 7.9 g/dL 06/23/2020 17.0 13.0 HCT 25.9 % 06/23/2020 51.0 39.0 WBC 7.74 k/uL 06/23/2020 11.00 3.70 PLT 115 k/uL 06/23/2020 400 150 NA 131 mmol/L 06/23/2020 144 136 K 3.9 mmol/L 06/23/2020 5.1 3.7 GLUC 174 mg/dL 06/23/2020 99 74 BUN 18 mg/dL 06/23/2020 24 9 CREAT 0.90 mg/dL 06/23/2020 1.22 0.73 PTSEC 13.5 sec 06/23/2020 13.0 9.7 INR 1.3 no uni* 06/23/2020 1.3 0.9 APTT 25.6 sec 06/23/2020 32.4 23.0 ALT 36 U/L 06/23/2020 54 10 AST 60 U/L 06/23/2020 40 14 TBILI 7.1 mg/dL 06/23/2020 1.3 0.2 TSH 3.380 uU/mL 06/23/2020 4.200 0.270 GFR No results within date range. FIBRAG No results within date range. No results found for: ANTINT SIGNATURE: Ruth Ann Reyes MD PATIENT NAME: Becky Hutchisno DATE: June 25, 2020 TIME: 9:53 AM PAGER/CONTACT #: documented in this encounter
== END ==
PROVIDERS: PCP Family Medicine; Referring Provider Internal Medicine Hematology & Oncology; Visit Provider Internal Medicine Hematology & Oncology
DX: D69.6 Thrombocytopenia, unspecified (principal); D64.9 Anemia, unspecified; D50.0 Iron deficiency anemia secondary to blood loss (chronic)
CPT/HCPCS: 36415; 83540; 83550; 85025

== ENCOUNTER → 2020-02-27 08:47 | Outpatient (CLI) | payer OTHER, SELFPAY ==
[2020-01-22 15:12] VITALS: BMI 35.2
[2020-02-27] VITALS (10 sets, daily range): BP systolic 113–160; BP diastolic 65–85; PULSE 78–87; RESP 12–18; TEMP 36.9; O2SAT 93–99; BMI 34.0
--- NOTE | 2020-02-27 | BMB_PTH ---
PATIENT: BECKY MAS LOC: [place] U#:[id number] AGE/SX: 69/M ROOM: RE02/27/[address]: Dr. Efren Gayle MD : 1955 BED: DIS: SPEC #: [id number] RECD: 02/27/20 12:14 STATUS: JESIKA TRACY #: [id number] DERIAN: 02/27/20 00:[address]: Efren Gayle DEPT: BONE MARROW RECD BY: Baldomero Espinoza ENTERED: 02/27/20 12:14 SP TYPE: BMB OTHR DR: Dr. Jesse Valdivia MD Tissues: A - Bone marrow, NOS B - Bone marrow, NOS C - Bone marrow, NOS Procedures: Decalcification bone/plaque Bone Marrow Aspiration Retic (control) Bone Marrow Core Biopsy Iron Stain Bone Marrow HEADER OPERATION: Bone marrow biopsy and aspiration PRE-OP DIAGNOSIS: Thrombocytopenia; anemia TISSUE SUBMITTED: A - Core, B - Clot, C - Smears, and send outs (flow, cytogenetics and MDS) BONE MARROW DIAGNOSIS Left hip bone marrow core, clot and aspirate smears: Normocellular marrow with trilineage hematopoiesis. Iron - 2+. A few sideroblasts are noted. Significant increased of atypical or ringed sideroblasts are not seen. Peripheral blood - pancytopenia. [facility] shifted myelopoiesis and phenotypic aberrancy of neutrophils and monocytes. See comment. SJ:marisela 03/03/20 COMMENT Cytogenetic studies are pending at this time. Clinical correlation and appropriate follow up are necessary. Case has been reviewed in consultation with Dr. Reid who concurs with the above diagnosis. IDC:AM BONE MARROW STUDY Slides are reviewed. CBC DATE: 02/27/20 WBC 3.8; RBC 3.08; HGB 9.9; HCT 31.4; MCV 101.9; RDW 20.9; PLTS 48,000 SEGS 59.2%; LYMPHS 23%; MONOS 13.1%; EOS 3.9%; BASOS 0.5% PERIPHERAL SMEAR: Submitted. RBC: Macrocytic anemia. Anisocytosis 1+ WBC: Leukopenia. The WBC count is compatible to as reported above. PLTS: Markedly decreased. BONE MARROW ASPIRATE DIFFERENTIAL: 200 cell count. Blasts % (normal 0-2): 0 Promyelocytes % (normal 1-5): 2 Myelocytes and metamyelocytes % (normal 17-41): 27 Bands and Segs % (normal 15-32): 29 Eos % (normal 1-6): 4 Basos % (normal 0-1): 0 Monocytes % (normal 0-4): 0 Erythroid Precursors % (normal 17-35): 31 Lymphocytes % (normal 7-13): 7 Plasma Cells % (normal 0-2): 0 ASPIRATE FINDINGS: Site: Left hip Spicular, Cellular M/E ratio: 2.0 (Normal 1.5-4.0) Megakaryocytes: Present and normal morphology. Erythropoiesis: Normoblastic. Granulopoiesis: Progressive and unremarkable. Comment: Significant dysplastic changes are not seen. CORE BIOPSY FINDINGS: Site: Left hip Adequacy: Adequate Cellularity: 50% M/E ratio: Within normal limits. Megakaryocytes: Present and adequate in number. Bony trabeculae: Unremarkable. Granulomas: Absent. Lymphoid aggregate: Absent. Atypical infiltrate: Absent. ASPIRATE CLOT FINDINGS: Site: Left hip Marrow particles: Numerous Cellularity: 50% M/E ratio: Within normal limits. Megakaryocytes: Present and adequate in number. Granulomas: Absent. Lymphoid aggregates: Absent. Atypical infiltrates: Absent. SPECIAL STAINS WITH MATCHED CONTROLS: Iron: 2+. A few sideroblasts are noted. Significant increased of atypical or ringed sideroblasts are not seen. Reticulin: Minimal increase of reticulin fibers is noted. PAS: Highlights myeloid cells and megakaryocytes. Trichrome: Significant collagenous fibrosis is not seen. BONE MARROW GROSS A - Received is a container labeled with the patient's name and designated left hip. The specimen consists of a piece of kaur bone measuring 1.5 cm in length and 0.1 cm in diameter. The specimen is totally submitted in one cassette after decalcification. B - Received labeled with the patient's name and designated left hip is a specimen that consists of approximately 10 cc of bloody fluid that on filtration yields multiple minute fragments of blood clots measuring in aggregate 2 x 1.5 x 0.1 cm. The specimen is totally submitted in one cassette. C - Also received are 9 unstained and 1 peripheral stained slides. The unstained slides are submitted for appropriate staining. Also received are two green top tubes which are sent to our reference lab for flow, cytogenetics and MDS. / SJ:rg 02/27/20 TC:5 CPT: 16919, 38285, 74032 x2, 34366 x4, 86407 ADDENDUM ADDENDUM ADDENDUM ADDENDUM ADDENDUM ADDENDUM ADDENDUM ADDENDUM ADDENDUM ADDENDUM 03/17/2020 10:35 ADDENDUM 03/17/2020 10:35 ADDENDUM 03/17/2020 10:35 ADDENDUM 03/17/2020 10:35 ADDENDUM 03/17/2020 10:35 [facility] RESULT: 46,XY[20] INTERPRETATION: Normal male karyotype was observed in twenty metaphases analyzed. TEST: MDS FISH PANEL FISH RESULT: Normal MDS Panel Please see complete report in e-chart or EMR for further details
[2020-02-27 09:04] LABS: Absolute Lymphocyte Count 0.88 X10^3/uL (0.83-4.51); Absolute Neutrophil Count 2.3 X10^3/uL (2.0-7.7); Basophil# 0.02 X10^3/uL; Basophil% 0.5 % (0-1); Eosinophil# 0.15 X10^3/uL; Eosinophils% 3.9 % (0-5); Hematocrit 31.4 % (40-54); Hemoglobin 9.9 g/dL (13.0-16.5); Lymphocyte # 0.88 X10^3/ul (4.0); Mean Corp Hgb Conc 31.5 g/dL (32-36); Mean Corpuscular Hgb 32.1 pg (27.0-32.0); Mean Corpuscular Volume 101.9 fL (80-94); Mean Platelet Vol. 10.1 fl (6.2-12.0); Monocyte% 13.1 % (0-10); NRBC Flagged by Analyzer 0 % (0-5); Neutrophil # 2.26 X10^3/uL (2.7-7.7); Neutrophil % 59.2 % (47-70); POSITIVE COUNT YES; POSITIVE MORPHOLOGY YES; RBC Distribution Width CV 20.9 % (11.6-14.6); Red Blood Count 3.08 M/mm3 (4.6-6.2); White Blood Count 3.8 K/mm3 (4.4-11.0)
[2020-02-27 09:08] LABS: Differential Indicated SCAN CRITERIA MET; Platelet Count 48 K/mm3 (150-450)
[2020-02-27 09:23] LABS: International Normalized Ratio 1.6; Prothrombin Time (Protime)PT. 18.4 SECONDS (11.7-14.9)
[2020-02-27 09:28] LABS: Partial Thromboplast Time 32.7 Seconds (24.1-36.2)
--- NOTE | 2020-02-27 09:45 | CT_ITS ---
PROCEDURE: CT GUIDED BONE marrow biopsy on the left iliac bone. DATE: February 27, 2020. INDICATION: Male, 64 years old. Anemia. Thrombocytopenia. PHYSICIAN: Ted Melara M.D. RADIATION DOSAGE (If Supplied By Facility): CTDIvol = ( 16 ) mGy, DLP = ( 742.83 ) mGycm. Individualized dose optimization techniques were utilized. PROCEDURE: The risks, benefits, and alternatives to the procedure were explained to the patient. The specific risk of hemorrhage requiring further treatment or intervention was detailed and accepted. Follow-up instructions were discussed with the patient as well. Written informed consent was obtained. The patient was brought into the CT suite and placed in the prone position. . An appropriate entry site overlying the posterior left iliac bone was identified. The overlying skin was prepped and draped in the usual sterile fashion. 1% lidocaine was administered subcutaneously for local anesthesia. Conscious sedation was performed. The patient received 2 mg of Versed and 50 mcg of fentanyl intravenously. Conscious sedation was started at 9:52 AM and terminated at 10:05 AM. The patient was monitored independently by the department nurses. Under CT guidance, a bone marrow biopsy and bone marrow aspirate passes were performed The specimens were then placed in the appropriate fluid and transported to the laboratory for analysis. Hemostasis was obtained. The patient tolerated the procedure well without immediate complications. CT/Biopsy/Inj or Needle Placement IMPRESSION: Successful CT guided bone marrow biopsy of the posterior aspect of the left iliac bone., as described above. The conscious sedation protocol was followed. Electronically Signed: Ted Melara, at 10:24 EDT , Service support ,
[2020-02-27 09:50] LABS: Anisocytosis 1+; Platelet Estimate MKD DEC (ADEQ)
[2020-02-27] MEDS: fentaNYL 100 MCG/2 ML Ampul IV (09:52)
[2020-02-27] MEDS: Midazolam 2 MG/2 ML Syringe IV (09:52)
[2020-02-27] MEDS: 0.9% Saline Lock 10 ML Syringe IV (09:59)
[2020-02-29 12:14] LABS: Pathologist Review Reviewed
--- OUTSIDE RECORDS SUMMARY | 2020-06-29 15:02 | XMS RPT_ITS | CCD ---
:1955 External Reference #:[id number] Author Organization [facility] Care Team Providers Name Role Phone Unavailable [...] Albuterol / COMBIVENT RESPIMAT 05-12-2020 [facility] Provider [facility] Ipratropium 20-100 mcg/actuation (10130) inhaler Inhale 1 Puff as instructed four times daily. 0 05/12/2020 Active Comment: Inhale 1 Puff as instructed four times daily. carvedilol carvedilol (COREG) 6.25 mg tablet Ccf Pro vider [facility] (19281) Take 6.25 mg by mouth twice daily with meals. 0 Active Comment: Take 6.25 mg by mouth twice daily with meals. Ergocalciferol ergocalciferol 50,000 06-26-2020 - Win [facility] unit capsule (VITAMIN 09-12-2020 Tacho Masters (4419 5) D2, LATRICIA) Take 1 S Tacho capsule by mouth one time a week for 12 doses. 12 capsule 0 06/26/2020 09/12/2020 Active Comment: Take 1 capsule by mouth one time a week for 12 doses. Esomeprazole esomeprazole (NEXIUM) 20 mg [facility]cf Provider [facility] (29522) capsule Take 20 mg by mouth DAILY (6 AM). 0 Active Comment: Take 20 mg by mouth DAILY (6 AM). fluticasone fluticasone [facility] Provider [facility] propion/salmeterol (ADVAIR propion/salmeterol (ADVAIR (82726) DISKUS INHALATION) DISKUS INHALATION) Inhale as instructed. 0 Active fluticasone propion/salmeterol (ADVAIR DISKUS Cc f [facility] (59930) INHALATION) Inhale as instructed. 0 Active fluticasone propion/salmeterol (ADVAIR DISKUS Cc [facility] (99654) INHALATION) Inhale as instructed. 0 Active fluticasone propion/salmeterol (ADVAIR DISKUS Cc f [facility] (39896) INHALATION) Inhale as instructed. 0 Active fluticasone propion/salmeterol (ADVAIR DISKUS Cc f [facility] (16474) INHALATION) Inhale as instructed. 0 Active fluticasone propion/salmeterol (ADVAIR DISKUS [facility] (38709) INHALATION) Inhale as instructed. 0 Active fluticasone propion/salmeterol (ADVAIR DISKUS Cc [facility] (16679) INHALATION) Inhale as instructed. 0 Active fluticasone propion/salmeterol (ADVAIR DISKUS Cc f [facility] (48908) INHALATION) Inhale as instructed. 0 Active fluticasone propion/salmeterol (ADVAIR DISKUS [facility] (60037) INHALATION) Inhale as instructed. 0 Active fluticasone propion/salmeterol (ADVAIR DISKUS [facility] (97467) INHALATION) Inhale as instructed. 0 Active fluticasone propion/salmeterol (ADVAIR DISKUS [facility] (36733) INHALATION) Inhale as instructed. 0 Active Comment: Inhale as instructed. Furosemide furosemide (LASIX) 40 mg tablet Ccf Provi [facility] (50283) Take 40 mg by mouth once daily. 0 Active furosemide (LASIX) 40 mg tablet Take 40 mg by Cc f [facility] (50856) mouth twice daily. 0 Active Comment: Take 40 mg by mouth twice da neo. Take 40 mg by mouth once grisel ly. iv contrast iv contrast (will be 06-03-2020 - Win Arellano [facility] (will be provided with radiology 06-04-2020 Tacho Masters (99 195) provided with test) Indications: S Tacho [...] Lactobac no.41/Bifidobact Lactobac no.41/Bifidobact Cc f Provider [facility] no.7 (PROBIOTIC-10 ORAL) no.7 (PROBIOTIC-10 ORAL) ([facility]) Take by mouth. 0 Active Lactobac no.41/Bifidobact no.7 (PROBIOTIC-10 Ccf [facility] ([facility]) ORAL) Take by mouth. 0 Active Lactobac no.41/Bifidobact no.7 (PROBIOTIC-10 Cc Provider [facility] ([facility]) ORAL) Take by mouth. 0 Active Lactobac no.41/Bifidobact no.7 (PROBIOTIC-10 [facility]cf Provider [facility] ([facility]) ORAL) Take by mouth. 0 Active Lactobac no.41/Bifidobact no.7 (PROBIOTIC-10 Cc Provider [facility] ([facility]) ORAL) Take by mouth. 0 Active Lactobac no.41/Bifidobact no.7 (PROBIOTIC-10 Ccf [facility] ([facility]) ORAL) Take by mouth. 0 Active Lactobac no.41/Bifidobact no.7 (PROBIOTIC-10 [facility] ([facility]) ORAL) Take by mouth. 0 Active Lactobac no.41/Bifidobact no.7 (PROBIOTIC-10 [facility] Provider [facility] (03352) ORAL) Take by mouth. 0 Active Lactobac no.41/Bifidobact no.7 (PROBIOTIC-10 [facility] ([facility]) ORAL) Take by mouth. 0 Active Lactobac no.41/Bifidobact no.7 (PROBIOTIC-10 [facility] ([facility]) ORAL) Take by mouth. 0 Active Lactobac no.41/Bifidobact no.7 (PROBIOTIC-10 [facility] ([facility]) ORAL) Take by mouth. 0 Active Lactobac no.41/Bifidobact no.7 (PROBIOTIC-10 [facility] ([facility]) ORAL) Take by mouth. 0 Active Lactobac no.41/Bifidobact no.7 (PROBIOTIC-10 [facility] ([facility]) ORAL) Take by mouth. 0 Active Lactobac no.41/Bifidobact no.7 (PROBIOTIC-10 [facility] ([facility]) ORAL) Take by mouth. 0 Active Comment: Take by mouth. Lactulose lactulose (CONSTULOSE ORAL) [facility] mouth. 0 Active lactulose (CONSTULOSE ORAL) Take by mouth. 0 [facility] ([facility]) Active lactulose (CONSTULOSE ORAL) Take by mouth. 0 [facility] ([facility]) Active lactulose (CONSTULOSE ORAL) Take by mouth. 0 [facility] ([facility]) Active lactulose (CONSTULOSE ORAL) Take by mouth. 0 [facility] ([facility]) Active lactulose (CONSTULOSE ORAL) Take by mouth. 0 [facility] ([facility]) Active lactulose (CONSTULOSE ORAL) Take by mouth. 0 [facility] ([facility]) Active lactulose (CONSTULOSE ORAL) Take by mouth. 0 [facility] ([facility]) Active lactulose (CONSTULOSE ORAL) Take by mouth. 0 [facility] ([facility]) Active lactulose (CONSTULOSE ORAL) Take by mouth. 0 [facility] ([facility]) Active lactulose (CONSTULOSE ORAL) Take by mouth. 0 [facility] ([facility]) Active lactulose (CONSTULOSE ORAL) Take by mouth. 0 [facility] (90052) Active lactulose (CONSTULOSE ORAL) Take by mouth. 0 Ccf Provider [facility] (99740) Active lactulose (CONSTULOSE ORAL) Take by mouth. 0 Ccf Provider [facility] (27832) Active Comment: Take by mouth. Methylcellulose Methylcellulose, Laxative, Ccf Provide r [facility] (CITRUCEL) 500 mg tab Take by (42666) mouth. 0 Active Comment: Take by mouth. perflutren lipid perflutren lipid 06-03-2020 [facility] microspheres microspheres (DEFINITY) [facility] (441 95) (DEFINITY) 1.1 mg/mL 1.1 mg/mL [...] 0 06/03/2020 Active perflutren lipid microspheres 06-03-2020 [facility] (85076) (DEFINITY) 1.1 mg/mL injection (to be provided [...] 0 06/03/2020 Active perflutren lipid microspheres 06-03-2020 [facility] (48985) (DEFINITY) 1.1 mg/mL injection (to be provided [...] 0 06/03/2020 Active perflutren lipid microspheres 06-03-2020 [facility] (53668) (DEFINITY) 1.1 mg/mL injection (to be provided [...] 0 06/03/2020 Active perflutren lipid microspheres 06-03-2020 [facility] (78267) (DEFINITY) 1.1 mg/mL injection (to be provided with echo procedure) Indications: Liver transplant candidate , DIXNO (nonalcoholic steatohepatitis) Inject 1.3 mL intravenously as [...] 0 06/03/2020 Active perflutren lipid microspheres 06-03-2020 [facility] (41521) (DEFINITY) 1.1 mg/mL injection (to be provided [...] 0 06/03/2020 Active perflutren lipid microspheres 06-03-2020 [facility] (28645) (DEFINITY) 1.1 mg/mL injection (to be provided [...] 0 06/03/2020 Active perflutren lipid microspheres 06-03-2020 [facility] (57774) (DEFINITY) 1.1 mg/mL injection (to be provided [...] 0 06/03/2020 Active perflutren lipid microspheres 06-03-2020 [facility] (05712) (DEFINITY) 1.1 mg/mL injection (to be provided [...] 0 06/03/2020 Active perflutren lipid microspheres 06-03-2020 [facility] (00861) (DEFINITY) 1.1 mg/mL injection (to be provided [...] 0 06/03/2020 Active perflutren lipid microspheres 06-03-2020 [facility] (45800) (DEFINITY) 1.1 mg/mL injection (to be provided [...] 0 06/03/2020 Active perflutren lipid microspheres 06-03-2020 [facility] (91204) (DEFINITY) 1.1 mg/mL injection (to be provided [...] 0 06/03/2020 Active perflutren lipid microspheres 06-03-2020 [facility] (68676) (DEFINITY) 1.1 mg/mL injection (to be provided [...] 0 06/03/2020 Active perflutren lipid microspheres 06-03-2020 [facility] (45148) (DEFINITY) 1.1 mg/mL injection (to be provided [...] 0 06/03/2020 Active perflutren lipid microspheres 06-03-2020 [facility] (27638) (DEFINITY) 1.1 mg/mL injection (to be provided [...] 0 06/03/2020 Active perflutren lipid microspheres 06-03-2020 [facility] (17794) (DEFINITY) 1.1 mg/mL injection (to be provided [...] 0 06/03/2020 Active perflutren lipid microspheres 06-03-2020 [facility] (68964) (DEFINITY) 1.1 mg/mL injection (to be provided [...] rifAXIMin (XIFAXAN) 550 mg tablet [facility]04[facility] Take by mouth twice daily. 0 Active Comment: Take by mouth twice daily. Sertraline sertraline (ZOLOFT) 50 mg tablet Ccf [facility] (09843) Take 50 mg by mouth once daily. 0 Active Comment: Take 50 mg by mouth once grisel ly. Spironolactone spironolactone (ALDACTONE) 100 Ccf [facility] (08207) mg tablet Take 200 mg by mouth once daily. 0 Active spironolactone (ALDACTONE) 100 mg tablet Take Cc f [facility] (26191) 100 mg by mouth once daily. 0 Active Comment: Take 100 mg by mouth once da neo. Take 200 mg by mouth once da neo. Vitamin A vitamin A (AQUASOL 06-26-2020 - Win [facility]) 10,000 unit 07-26-2020 Win [facility] (62379) capsule Take 1 capsule by mouth once daily. 30 capsule 0 06/26/2020 07/26/2020 Active Comment: Take 1 capsule by mouth once daily. Problems Active Problems Category Problem Name Status Date Location Adjustment disorders Adjustment disorder with Active 05-28-20 - [place] mixed anxiety and System (00 000) depressed mood Blindness and vision Blindness, right eye, 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 - [place] defects normal vision left eye Syste m (06621) Cardiac dysrhythmias Unspecified atrial 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 - [facility] fibrillation System (11957) Chronic obstructive Chronic obstructive 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 [facility] pulmonary disease and pulmonary disease, System (69890) bronchiectasis unspecified Deficiency and other Anemia, unspecified Active 05-15-2017 - [place] anemia System (06126) Diabetes mellitus with Type 2 diabetes mellitus Active 2016 [facility] Health complications with other specified System (23436) complication Diabetes mellitus without Type 2 diabetes mellitus Active [facility] Health complication without complications System (14557) Disorders of lipid Hyperlipidemia, 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 [facility] Health metabolism unspecified System (41817) Essential hypertension Essential (primary) 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 [facility] hypertension System (41985) External Injury - Adverse Adverse effect of other Active 05-13 [facility] Health effects of medical drugs systemic antibiotics, System (69116) initial encounter Hepatitis Nonalcoholic Active [facility] steatohepatitis (00575) Infective arthritis and Osteomyelitis of Active 05-15-2017 [place] osteomyelitis (except vertebra, site Syst em (93785) that caused by unspecified tuberculosis or sexually transmitted di Nutritional deficiencies Unspecified severe 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 [place] protein-calorie System (0000 0) malnutrition Other gastrointestinal Constipation, 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 Health disorders unspecified System (23732) Other lower respiratory Dyspnea Active [facility] disease (89913) Other nervous system Metabolic encephalopathy Active 05-28-20 [facility] Health disorders System (01161) Other nutritional; Obesity, unspecified Active 05-15-2017 [facility] endocrine; and metabolic Sys tem (40172) disorders Screening or history of Tobacco use and exposure Active 05-28 [place] mental health and - finding System (00 000) substance abuse Septicemia Sepsis, unspecified Active 05-15-2017 [facility] He alth organism System (62894) Spondylosis; Discitis, unspecified, 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 [facility] intervertebral disc lumbar region System (70087) disorders; other back problems Unclassified 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) use 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 [facility] of oral hypoglycemic System (08444) drugs Unclassified Body mass index (BMI) Active 05-15-2017 [facility] 33.0-33.9, adult System (000 00) Unclassified Awaiting transplantation Active [facility] of liver (92883) Unclassified Drug therapy finding Active [facility] (56479) Unclassified Patient encounter status Active [facility] (80899) Past or Other Problems Category Problem Name Status Date Location Acute and unspecified Acute kidney failure, Completed 05-28-2017 - [facility] [employer] renal failure unspecified System (97983) Bacterial infection Klebsiella pneumoniae Completed 06-27-2017 - [facility] [employer] [K. 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 [place] Author Type: Decator Operator (73192) Type: Progress Notes Filed: 06/26/2020 5:34 PM [...] IDENTIFYING INFORMATION: Patient prefers to be called: Alexsander Age: [age] year old Lives now: Becky Hutchison [phone] [id number] [facility] [id number] [facility] IMPRESSION: Social Support Pt has strong support from his [place] who will be his pr imary caregiver post-transplant. Pt's secondary caregivers will be his son Baldomero and daughter Carmen. 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 Pt will have skilled nursing disability until he reaches the age to [...] Dr. Valdivia Do you have any moral, uatsdin, or ethnic views against tr ansplant: no Have you ever been transplanted, evaluated, or listed at [facility]: No PERSONAL HISTORY: Citizenship Where were you born: [place] [facility] Race/ethnicity: White Primary language: New Zealander Grew up where: [place] Parental information: Both parents Sibling information: 4 brothers, pt is the oldest Describes upbringing as: Liked it- grew up in the in the [employer] home he currently is in. Pt lived [...] and one son; one daughter is in [place] FUNCTIONING ABILITIES AND HOME ENVIRONMENT: Home set [...] will transport: Wi fe Can patient and/or memory care program resident identify the medications: Pt is aware but [...] coverage: same Which pharmacy do you use: [facility] curated.by [employer] [facility] [employer] benefits: Not needed Are you on disability: yes since when: March 2020 Household income: Financially stable. 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 Compliance concerns: No [...] hospital recovery time, hospital stay, discharge, terminal make up operator recovery. Yes reviewed ADVANCE DIRECTIVES: Durable power of city attorney: Pt and are interested. MIKA gomez ovided education and will mail as requested Living will: None Information given: Will mail if pt is not able to obtain on line or at next [facility] appointment. Overall impression, plan, and recommendation are listed at t he beginning of the assessment for ease of communication and continuity o f care purposes. EDGARD Alvarez, [facility] Liver Transplant Team Social Work [facility] on 2020-06-26 CNSW Social Work (TXCTMN) Normal 0 [place] Rebecca HUTCHISONBECKY Shannon ([id number]) 1955 M [facility] Date Time Provider Department (41383) 06/26/20 2:00 PM PERRI WARE TXCTMN During your visit today, we recorded the following informati on about you: MIKA Alvarez, UNDERWRITING INTERN 06/26/2020 5:34 PM Signed OLTx Psychosocial Evaluation Name: Becky Hutchison Assessment date: June 26, 2020 Location: Pt and are located in their home and ar e being seen virtually due to Covid 19 precautions. Patient consented to partici gonzalez in this transplant psychosocial assessment: Yes During this assessment, patient chose to include: Pt a grees to have his [place] Hutchison participate in the assessment. IDENTIFYING INFORMATION: Patient prefers to be called: Alexsander Age: [age] year old Lives now: [place]y [place] [phone] [id number] [facility] [id number] [facility] IMPRESSION: Social Support Pt has strong support from his [place] who will be his primary caregiver post-transplant. Pt's secondary caregivers will be his son Baldomero and daughter Carmen. Insurance/Financial Pt medical / prescription coverage is under [employer] P[employer] and is transitioning to skilled nursing disability policy through his work. Pt will hav e terminal make up operator disability until he reaches the age to receive [employer] benefits. No issues or problems have been [...] Age: 64 years 10 months PCP: Dr. Valdiiva Do you have any moral, uatsdin, or ethnic views against tr ansplant: no Have you ever been transplanted, evaluated, or listed at a [facility] center: No PERSONAL HISTORY: Citizenship Where were you born: [place] Race/ethnicity: White Primary language: New Zealander Grew up where: [place] Parental information: [...] and one son; one daughter is in [place] FUNCTIONING ABILITIES AND HOME ENVIRONMENT: Home set [...] you drive? Yes but has been driving. [facility] ed some symptoms of HE If you don't or can't due to illness, who will transport: Wi fe Can patient and/or memory care program resident identify the medications: Pt is aware but [...] insurance: [employer] through Pt employment. On skilled nursing disability that lasts till age 65 Prescription coverage: same Which pharmacy do you use: [facility] [employer] benefits: Not needed Are you on disability: yes since when: March 2020 Household income: Financially stable. 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 Compliance concerns: No [...] hospital recovery ti me, hospital stay, discharge, skilled nursing recovery. Yes reviewed ADVANCE DIRECTIVES: Durable power of city attorney: Pt and are interested. SW provided education and will mail as requested Living will: None Information given: Will mail if pt is not able to obtain on line or at next [facility] appointment. Overall impression, plan, an d recommendation are listed at the beginning of the assessment for ease of communication and continuity of care purposes. EDGARD Alvarez, [facility] Liver Transplant Team Social Work Referring Provider: CONOR VANESSA [[id number]] Allergies As of Date: 06/26/2020 (Not on [...] on 2020-06-26 CNPN Telephone (GASTA5) Normal 06-26-2020 [place] BECKY Escalante ([id number]) 1955 D[place] [facility] Date Time Provider Department ([id number]) 06/26/20 WIN TITUS GASTA5 During your visit [...] on 2020-06 OBSOLETE Procedure (PULLMN) Normal 06-25-2020 [facility] HUTCHISONBECKY ([id number]) 1955 M [facility] Date Time Provider Department ([id number]) 06/25/20 10:15 AM PULM FCT LAB MAIN 6 ADDON PULLMN During your visit today, we recorded the following informati on about you: Referring Provider: CONOR VANESSA [[id number]] Allergies As of Date: 06/25/2020 (Not on File) Date Reviewed: 06/24/2020 Reviewed by: Sirena eMjía) DIMITRIOS Ibrahim - Fully Assessed Reason for Visit: Spirometry [191] Primary Visit Diagnosis:Dyspnea, unspecified type [R06.00] Other Visit Diagnoses:Liver transplant candidate [Z76.82] DIXON (nonalcoholic steatohepatitis) [K75.81] Order(s):SPIROMETRY BASELINE ONLY [9516672] Order #: [id number]. #:[id number] Prescriptions as of 06/25/2020 Sig: COMBIVENT RESPIMAT [...] physical on 2020-06-25 HISTORY PHYSICAL HNO ID: [id number] Normal 06-12 [facility] Author: Ruth Ann Reyes Carroll ([id number]) Service: ? Author Type: Anesthesiologist Type: HANDP [...] COPD. Patient had PCI in 2009 s/p WA . Since then, no stress test. Patient [...] (HCC) - SARWAT (iron deficiency anemia) - WA, 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 - Thrombocytopenia (HCC) [...] 2020-06-25 CNOV Office Visit (TXCTMN) Normal 06-25-[address] [place] [address] Clinic BECKY HUTCHISON ([id number]) 1955 [facility] Date Time Provider Department ([id number]) 06/25/20 9:30 AM ANESTHESIA [place] CLINIC TXCTMN [...] COPD. Patient had PCI in 2009 s/p WA. Since then , no stress test. Patient [...] (HCC) - SARWAT (iron deficiency anemia) - WA, 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 - Thrombocytopenia (HCC) [...] AM PAGER/CONTACT #: Referring Provider: CONOR VANESSA [[id number]] Allergies As of Date: 06/25/2020 (Not on [...] on 06/25/20 No panel information on 2020-06-25 [facility] 06-25-2020 [facility] [address] ([id number]) [address] [place] [address] Test Date: 06-25 Pat Name: BECKY HUTCHISON Department: Room: Gender: Male Tub Attendant: Estefanía Maloney : 1955 Requested By: Order Number: [id number] Reading MD: Interpretive Statements Had difficulty with [...] 3.93 FE%FIF % 80 FIVC L 3.74 HRD55-70% L/s 2.69 1.27 2.67 4.59 100.7 SWR408% sec 10.91 FETPEF sec 0.24 VBe%FV % [...] (Gogo GLI 2012): Respiratory Journal 2012; 40: 7965-7320, 2012. Tech Comment: progress on 2020-06 PROGRESS HNO ID: [id number] Normal 06-24-2020 [facility] Author: Xi (Dimitrios) DIMITRIOS Barksdale Carroll ([id number]) Service: ? Author Type: Registered Nurse Type: Progress Notes Filed: 06/24/2020 4:36 PM Note Text: Patient provided dental clearance form completed by local de ntist. Pt seen 06/12/20 and is free from active disease and infection, no work needs to be completed at this time. Dental office phone [phone] . Form in file. Xi Barksdale RN PROGRESS HNO ID: [id number] Normal 06-24-2020 [facility] Author: Xi (Dimitrios) DIMITRIOS Barksdale Carroll ([id number]) Service: ? Author Type: Registered Nurse Type: Progress Notes Filed: 06/24/2020 4:35 PM Note Text: Met with patient/family to discuss the following information : [x] Patient was provided the Surgical Site Infection FAQ she et [x] SRTR information provided and questions answered. Inform ed patient to call cosmetic account coordinator with any questions [x] Patient was provided the UNOS brochure on multiple listi ng and waiting time transfer [x]Evaluation process including presentation to selection co mmittee, OSOTC approval and listing criteria reviewed [x]Surgical procedure, including post-operative management, hospitalization, lifelong immunosuppressive medications and their side effects (including the risk for hypertension, diabetes, kidn ey problems and cancers) and skilled nursing follow up after transplant. Possi bility of recurrent disease discussed with patient. [x]Patient is aware of the potential medical, surgical or ps ychosocial risks [x] Patient is aware that they will need a memory care program resident to b e available for the first [...] to listing. [x] Patient told that the [facility] is a t eaching facility and part of care, under the guidance of margaret jacome, may be conducted by Residents, [place] and students. [x]Patient advised that transplants not [...] to listing. [x] Patient told that the [facility] is a t eaching facility and part of care, under the guidance of margaret jacome, may be conducted by Residents, [place] and students. [x]Patient advised that transplants not [...] Department: TR [facility]SPLANT [facility]ENTER PROGRESS HNO ID: [id number] Normal 06-24-2020 [facility] Author: Olivier Woods (Respiratory Care Program Director) Carroll ([id number]) Service: ? Author Type: Pharmacist Type: Progress [...] obesity, hy pertension, CAD (PCI 2010 s/p WA), depression, anxiety, BPH, COPD. Allergies: ALLERGIES Not on File Preferred Pharmacy e- [facility] [place] [address] - [address] [facility] - [phone] [address] [facility] [address] Evaluation of current pharmacotherapy: Current Outpatient Rx [...] Ryland Woods, KatharineD PGY2 Solid Organ Transplant Respiratory Care Program Director [phone] PROGRESS HNO ID: [id number] Normal 06-24-2020 [facility] Author: BENITEZ Nicole (Ct) Carroll ([id number]) Service: Radiology Author Type: Clinical Tub Attendant Type: Progress Notes Filed: 06/24/2020 8:32 AM [...] S ite disposition Discontinued SIGNED BY: BENITEZ Nicole June 24, 2020 8:16 AM PROGRESS HNO ID: [id number] Normal 06-24-2020 [facility] Author: Sirena HesterRn) DIMITRIOS Ibrahim Carroll ([id number]) Service: Nuclear Medicine Author Type: Registered Nurse [...] unstable renal function, e.g. those with ac [place] kidney injury, the eGFR may not accurately reflect actual GFR. eGFR- Date Value Ref Range Status 06/23/2020 >60 Final P.O.C.T. RESULTS: N/A June 24, 2020 TREATMENT: No Hydration needed. IV SITE: Ambulatory: A peripheral IV was started in the [facility] antecubital site with a Angio cath: 20 gauge. and A Saline l ock was inserted per protocol IV SITE APPEARANCE: Clean,Dry and Intact SIGNATURE: Sirena Ibrahim RN PATIENT NAME: Becky Pierre arr DATE: June 24, 2020 TIME: 8:[address] liver w ivcon on 2020-06-24 CT LIVER W * * *Final Report* * * Normal 2019 [facility] IVCON DATE OF EXAM: Jun 24 2020 8:32AM Carroll ([id number]) [facility] 0548 - CT LIVER W IVCON [...] 0 5T lesions: 0 5X lesions: 0 Skull Grinder: MARCELO Transcribe Date/Time: Jun 24 2020 8:44A Dictated by : CHARLES BARAJAS MD This examination was interpreted and the report reviewed and electronically signed by: CHARLES BARAJAS MD on Jun 24 2020 8:54AM EST [id number] ct chest w ivcon on 2020-06-24 CT CHEST W * * *Final Report* * * Normal 2019 [facility] IVCON DATE OF EXAM: Jun 24 2020 8:32AM Carroll ([id number]) [facility] 0539 - CT CHEST W IVCON [...] performed abdominal CT is di ctated separately. Coin Machine Servicer Repairer (topogram) images: No additional findings. IMPRESSION: 1. Nonspecific borderline enlarged left supraclavicular lymp h node which should be assessed on follow-up. 2. No suspicious pulmonary nodule. 3. Distal paraesophageal varices. 4. Minimal upper lobe predominant centrilobular and parasept al emphysema. Skull Grinder[facility] Transcribe Date/Time: Jun 24 2020 8:46A Dictated by : MAHENDRA IVAN MD This examination was interpreted and the report reviewed and electronically signed by: MAHENDRA IVAN MD on Jun 24 2020 8:59AM EST [id number] cnpn on 2020-06-24 CNPN Telephone (TXCTMN) Normal 06-24-2020 Carroll BECKY Escalante ([id number]) 1955 Sameer ORTIZ Carroll Date Time Provider Department ([id number]) 06/24/20 XI [place]) TXCTMN During your visit today, we recorded the following informati on about you: Allergies As of Date: 06/24/2020 (Not on File) Date Reviewed: 06/24/2020 Reviewed by: Sirena HesterRn) DIMITRIOS Ibrahim - Fully Assessed Reason for Visit: Follow Up [171] Primary Visit Diagnosis:Liver transplant candidate [Z76.82] Order(s):PHOSPHATIDYLETHANOL (PETH) [SQPETH] Order #: [id number] FUTURE Prescriptions as of 06/24/2020 Sig: COMBIVENT [...] 2020-06-24 CNOV Office Visit (TXCTMN) Normal 06-24-[address] [place] [address] [facility] BECKY HUTCHISON ([id number]) 1955 [facility] Date Time Provider Department ([id number]) 06/24/20 1:30 PM TRANSPLANT PHARMACIST TXCTMN During your visit today, we recorded the following informati on about you: Olivier Woods, Respiratory Care Program Director 06/24/2020 3:15 PM Signed Pre-Transplant Pharmacotherapy Evaluation Patient Name: Becky Hutchison Date of Service: June 24, 2020 Mr. Hutchison is a 64 year old male who presents to t he clinic today for pre-liver transplantation pharmacotherapy evaluation. Patient presen ts to clinic with DIXON. MELD-Na score 22. PMH includes obesity, hy pertension, CAD (PCI 2010 s/p WA), depression, anxiety, BPH, COPD. Allergies: ALLERGIES Not on File Preferred Pharmacy e- [facility] [facility] [address] - [address] [facility] - [phone] [address] [facility] [address] Evaluation of current pharmacotherapy: Current Outpatient Rx [...] Ryland Woods, PharmD PGY2 Solid Organ Transplant Respiratory Care Program Director [phone] Referring Provider: CONOR VANESSA [[id number]] Allergies As of Date: 06/24/2020 (Not on [...] Date: 06/24/2020 (None) Encounter Status:Closed by SUNNY (CASE TECHNICIAN)RON on 06/24/20 cncnpated on 2019- 0-13 CNCNPATED Education (TXCTMN) Normal 06-24-2020 [place] BECKY Escalante ([id number]) 1955 Sameer ORTIZ Carroll Date Time Provider Department ([id number]) 06/24/20 XI [place]) TXCTMN Reason for Visit: Patient Education [91] Progress Notes: Xi Barksdale RN, RN 06/24/2020 4:35 PM Signed Met with patient/family to discuss the following information : [x] Patient was provided the Surgical Site Infection FAQ she et [x] SRTR information provided and questi ons answered. Informed patient to call cosmetic account coordinator with any questions [x] Patient was provided the OS brochure on multiple listing and waiting time transfer [x]Evaluation process including presentation to selection co mmittee, OSOTC approval and listing criteria reviewed [x]Surgical procedure, including post-operative manage ment, hospitalization, lifelong immunosuppressive medications and their side effects (including the risk for hypertension, diabetes, kidney problems and cance rs) and skilled nursing follow up after transplant. Possibility of recurrent disea se discussed with patient. [x]Patient is aware of the potential medical, surgical or psychosocial risks [x] Patient is aware that th ey will need a memory care program resident to be available for the first 8-12 [...] to listing. [x] Patient told that the [facility] is a teaching facility and part of care, under the guidance of my physicians, may be co nducted by Residents, [place] and students. [x]Patient advised that transplants not performed in a medic are-approved hospital may negatively affe ct payment for medication coverage by Medicare Part B. [x]We make every attempt to provide transplant service s 24 hours per day. We would notify you of any closure and assist in making alter cowlitz transplant arrangements. [x] Patient told they are responsible fo r arranging for payment for costs that are not covered by insurance . Patient advised that insurance approval is needed prior to listing. [x] Patient told that the [facility] is a teaching facility and part of care, under the guidance of my physicians, may be co nducted by Residents, [place] and students. [x]Patient advised that transplants not performed in a medic are-approved hospital may negatively affe ct payment for medication coverage by Medicare Part B. [x]We make every attempt to provide transplant service s 24 hours per day. We would notify you of any closure and assist in making alter cowlitz transplant arrangements. AMBULATORY PATIENT EDUCATION NOTE PRE-OP [...] 2020-06-24 LV Ejection Fraction 52 % 0 [facility] ([id number]) [facility] (66602) vitamin e on 2019-09 Vitamin E-alpha 11.0 6.0-23.0 mg/L Normal 06-23-2020 [facility] (08620) Comment: Performed By: #### EBVG, VIT A, EVIT, LIPB, HFP, FERR, VZVG2, PTT, IRON, TOXP, BMP, TSH, HREMOP, SARAH LG, VITD, AHAVT, PT, PSAS1, HIV12C, AFP, CMVG, SYPHTX, CBCDIF ####[facility] [address] [place], [place] [phone]#### A 1APHE ####[address] [phone] Vitamin E-gamma 1.5 0.3-3.2 mg/L Normal 06-23-2020 [facility] (65942) Comment: Result Comment: This test wa s developed and its performance characteristics determined by [facility]'s [facility] (RT [facility]). It has not been cleared [...] PT, PSAS1, HIV12C, AFP, CMVG, SYPHTX, CBCDIF ####[place] [address] [place], [place] [phone]#### A 1APHE ####[address] [phone] vitamin d 25 hydroxy on 2020-06-23 Vitamin D 25 Hydroxy 15.0 31.0-80.0 ng/mL Low 0 [facility] (45344) Comment: Result Comment: Classificati on of 25 [place] Vitamin D status: Insufficiency/Moderate Defic iency: < or = 30 ng/mL Sufficiency/Optimal Levels: 31 to 80 ng/mL Toxicity: > 100 ng/mL Test performed by chemilumin escent immunoassay. Performed By: #### EBVG, VIT A, EVIT, LIPB, HFP, FERR, VZVG2, PTT, IRON, TOXP, BMP, TSH, HREMOP, SARAH LG, VITD, AHAVT, PT, PSAS1, HIV12C, AFP, CMVG, SYPHTX, CBCDIF ####[address] [phone]#### A 1APHE ####[address] [phone] vitamin a on 2019-0912 Vitamin A 0.11 0.30-1.20 mg/L Low 06-23-2020 [facility] (68266) Comment: Result Comment: This test wa s developed and its performance characteristics determined by [facility]'s [facility] ([facility]). It has not been cleared or a pproved by the FDA. [facility] is regulated under CLIA as qualified to perform high complexity testing. This test is used for clinic al purposes. It should not be regarded as investigational or for research. Performed By: #### EBVG, VIT A, EVIT, LIPB, HFP, FERR, VZVG2, PTT, IRON, TOXP, BMP, TSH, HREMOP, SARAH LG, VITD, AHAVT, PT, PSAS1, HIV12C, AFP, CMVG, SYPHTX, CBCDIF ####[address] [phone]#### A 1APHE ####[address] [phone] varicella zoster igg on 2020-06-23 V. zoster IgG, Positive Negative Critically abnormal 06-23 [facility] (92138) Comment: Result Comment: Presence of detectable VZV IgG antibodies. A positive result generally indicates exposure to the pathogen or administration of specific immunoglobulins, but is no i ndication of active infection or stage of disease. Performed By: #### EBVG, VIT A, EVIT, LIPB, HFP, FERR, VZVG2, PTT, IRON, TOXP, BMP, TSH, HREMOP, SARAH LG, VITD, AHAVT, PT, PSAS1, HIV12C, AFP, CMVG, SYPHTX, CBCDIF ####[address] [phone]#### A 1APHE ####[address] [phone] Varicella Zoster IgG >4000.0 Normal 0 [facility] (99238) Comment: Result Comment: Index Values are Interpreted [...] PT, PSAS1, HIV12C, AFP, CMVG, SYPHTX, CBCDIF ####[address] [phone]#### A 1APHE ####[address] [phone] type and screen on 2020-06-23 ABO/RH(D) AB NEGATIVE Normal 06-23-2020 [facility] (75044) Comment: Performed By: #### TSCR #### [place] [phone] tx confirm abo/rh ccf us e only on 2020-06-23 ABO/RH(D) AB NEGATIVE Normal 06-23-2020 [facility] (20626) Comment: Performed By: #### TRCABO ## ##[address] [phone] tsh on 2020-06-23 TSH Qn 3.380 0.270-4.200 uU/mL Normal 06-23-2020 [facility] (60661) Comment: Performed By: #### EBVG, VIT A, EVIT, LIPB, HFP, FERR, VZVG2, PTT, IRON, TOXP, BMP, TSH, HREMOP, SARAH LG, VITD, AHAVT, PT, PSAS1, HIV12C, AFP, CMVG, SYPHTX, CBCDIF ####[place] [phone]#### A 1APHE ####[address] [phone] toxicology screen,ur on 2020-06-23 Amphetamines, Urine Negative Negative Normal 06-23-2020 [facility] (62889) Comment: Result Comment: Cutoff thres hold at 1000 ng/mL. Performed By: #### UTOX2 ### #[address] [phone] Barbiturates, Urine Negative Negative Normal 06-23-2020 [facility] (87680) Comment: Result Comment: Cutoff thres hold at 200 ng/mL. Performed By: #### UTOX2 ### #[place] [phone] Benzodiazepines, Ur Negative Negative Normal 06-23-2020 [facility] (74694) Comment: Result Comment: Cutoff thres hold at 200 ng/mL. Performed By: #### UTOX2 ### #[place] [address] [place] [phone] Cannabinoids, Urine Negative Negative Normal 06-23-2020 [facility] (65744) Comment: Result Comment: Cutoff thres hold at 50 ng/mL. Performed By: #### UTOX2 ### #[place] [address] [phone] Cocaine, Urine Negative Negative Normal 06-23-2020 [facility] (77003) Comment: Result Comment: Cutoff thres hold at 300 ng/mL. Performed By: #### UTOX2 ### #[place] [address] [place] [phone] Ethanol, Urine 14 <11 mg/dL High 06-23-2020 [facility] (76670) Comment: Performed By: #### UTOX2 ### #[place] [address] [phone] Opiates, Urine Negative Negative Normal 06-23-2020 [facility] (60678) Comment: Result Comment: Cutoff thres hold at 300 ng/mL. Performed By: #### UTOX2 ### #[place] [address] [place] [phone] Oxycodone, Urine Negative Negative Normal 06-23-2020 [facility] (19921) Comment: Result Comment: Cutoff thres hold at 100 ng/mL. Comment: Immunoassay screen only. Naturopathic Doctor ss reactivity with other substances can occur [...] on the same specimen through Client Services ([phone]) if contacted within 48 hours of initial testing. [1]Substance Abuse and [facility] Services Administration (2012). Clinical Drug Testing in Primary Care Technical Assistance Publication Series 32. Department of Health and Human Services, [place], p.10. Performed By: #### UTOX2 ### #[facility] [place], [place] [phone] Phencyclidine, Urine Negative Negative Normal 0 [facility] (18118) Comment: Result Comment: Cutoff thres hold at 25 ng/mL. Performed By: #### UTOX2 ### #[place] [address] [address] [place], [place] [phone] toxicology panel bld on 2020-06-23 Acetaminophen [Mass/Vol] <5 - Low 06-23 [facility] (13930) Comment: Result Comment: Toxic > 150 ug/mL 4 hours post ingestion The Reyna Jeff nomogram can be used to estimate the probability of hepatotoxicity via the relationship of plasma acetaminophen concentration to the post ingestion interval. (Maria Del Carmen. Pedi atrics. 1975. 55:871 to 876 and Reyna et al. Arch Corrugator Operator Med. 1981. 141:380 to 385). Reference ranges and high/lo w indicator flags are provided as general guidelines only. The treating physician must determine appropriate target levels/dosing based on the specific clinical situation. Performed By: #### EBVG, VIT A, EVIT, LIPB, HFP, FERR, VZVG2, PTT, IRON, TOXP, BMP, TSH, HREMOP, SARAH LG, VITD, AHAVT, PT, PSAS1, HIV12C, AFP, CMVG, SYPHTX, CBCDIF ####[facility] [place], [place] [phone]#### A 1APHE ####[address] [phone] Ethanol [Mass/Vol] <11 <11 mg/dL Normal 06-23-2020 [facility] (39925) Comment: Performed By: #### EBVG, VIT A, EVIT, LIPB, HFP, FERR, VZVG2, PTT, IRON, TOXP, BMP, TSH, HREMOP, SARAH LG, VITD, AHAVT, PT, PSAS1, HIV12C, AFP, CMVG, SYPHTX, CBCDIF ####[facility] [place], [place] [phone]#### A 1APHE ####[address] [phone] Salicylate <0.3 3.0-30.0 Low 06-23-2020 [facility] (83533) Comment: Result Comment: The therapeu tic range varies and has been reported to be 3.0 to 10.0 mg/dL for anti pyretic/analgesic conditions and 15.0 to 30.0 mg/dL for anti inflammatory/rheumatic fever conditions. Ranges published by the inst rument home attendant. Reference ranges and high/lo w indicator flags are provided as general guidelines only. The treating physician must determine appropriate target levels/dosing based on the specific clinical situation. Performed By: #### EBVG, VIT A, EVIT, LIPB, HFP, FERR, VZVG2, PTT, IRON, TOXP, BMP, TSH, HREMOP, ASRAH LG, VITD, AHAVT, PT, PSAS1, HIV12C, AFP, CMVG, SYPHTX, CBCDIF ####[facility] [address] [place], [place] [phone]#### A 1APHE ####[facility] [place], [place] [phone] tb by quantiferon o n 2020-06-23 Interpretation No evidence of current or Normal 06-23-2020 [facility] previous infection with Manning (86816) Mycobacterium tuberculosis. Comment: Performed By: #### INFTBP ## ##[place] [address] [place], [place] [phone] Mitogen minus Nil 3.51 Normal 06-23-2020 C [facility] (18102) Comment: Performed By: #### INFTBP ## ##[place] [phone] TB NIL 0.03 IU/mL Normal 06-23-2020 [facility] (00724) Comment: Performed By: #### INFTBP ## ##[place] [phone] TB Result Negative Negative Normal 06-23-2020 [facility] (90984) Comment: Performed By: #### INFTBP ## ##[place] [id number] [place], [place] [phone] TB1 Ag minus Nil 0.00 <0.35 IU/mL Normal 06-23-2020 [facility] (25311) Comment: Performed By: #### INFTBP ## ##[place] 347275[address] TB2 Ag minus Nil 0.00 <0.35 IU/mL Normal 06-23-2020 [facility] (03562) Comment: Performed By: #### INFTBP ## ##[place] [phone] syphilis ttl w/reflx on 2020-06-23 Syphilis Interp Cannot exclude recent Normal [facility] Treponemal infection if [place] (13554) specimen collected within 7 to 10 days after appearance of suspect lesions or 2 to 3 weeks after an exposure. Clinical correlation is required. Comment: Performed By: #### EBVG, VIT A, EVIT, LIPB, HFP, FERR, VZVG2, PTT, IRON, TOXP, BMP, TSH, HREMOP, SARAH LG, VITD, AHAVT, PT, PSAS1, HIV12C, AFP, CMVG, SYPHTX, CBCDIF ####[place] 237884[address]#### A 1APHE ####[facility] [address] [place], [place] [phone] Syphilis Screen Non Reactive Non Reactive Normal 06-23-20 20 [facility] (67481) Comment: Performed By: #### EBVG, VIT A, EVIT, LIPB, HFP, FERR, VZVG2, PTT, IRON, TOXP, BMP, TSH, HREMOP, SARAH LG, VITD, AHAVT, PT, PSAS1, HIV12C, AFP, CMVG, SYPHTX, CBCDIF ####[facility] [address] [place], [place] [phone]#### A 1APHE ####[facility] [address] [place], [place] [phone] protime on PT Coag (PPP) [Time] 1.3 0.9-1.3 s Normal 0 [facility] (09713) Comment: Result Comment: Vitamin K An tagonist (VKA) Therapeutic Range: INR 2 to 3 (Target INR of 2.5) Note: For patients treated w ith VKA drugs, such as warfarin, the [place] [employer] 2012 Guideline recommends a therapeutic INR range of 2 to 3 (target INR of 2.5). This recommendation includes high-risk patients with antiphospholipid syndrome with previous arterial or venous thromboembolism, current-generation mechanical or bioprosthetic aortic heart valve replacement. Note: Patients with mechanical engineering manager al aortic valve replacement and additional risk factors for thromboembolic events (atrial fibrillation, previous thromboembolism, LV dysfunction, hypercoagulable conditions) or an older generation mecha nical AVR (i.e., ball in-Cage) or any mechanical MVR should have a INR therapeutic range of 2.5 to 3.5 (target INR of 3). Liudmila GH, et al. Chest 2012 , 141:7S-47S Juan José YUNG et al. [facility] 20 , 70: 252-289 Performed By: #### EBVG, VIT A, EVIT, LIPB, HFP, FERR, VZVG2, PTT, IRON, TOXP, BMP, TSH, HREMOP, SARAH LG, VITD, AHAVT, PT, PSAS1, HIV12C, AFP, CMVG, SYPHTX, CBCDIF ####[facility] [address] [place], [place] [phone]#### A 1APHE ####[facility] [address] [place], [place] [phone] PT Coag (PPP) [Time] 13.5 9.7-13.0 sec High 0 [facility] (49477) Comment: Performed By: #### EBVG, VIT A, EVIT, LIPB, HFP, FERR, VZVG2, PTT, IRON, TOXP, BMP, TSH, HREMOP, SARAH LG, VITD, AHAVT, PT, PSAS1, HIV12C, AFP, CMVG, SYPHTX, CBCDIF ####[facility] [address] [place], [place] [phone]#### A 1APHE ####[facility] [address] [place], [place] [phone] progress on 2020-06 PROGRESS HNO ID: [id number] Normal 06-23-2020 [facility] Author: Win Mannnig ([id number]) Service: ? Author Type: Physician Type: Progress Notes Filed: 06/27/2020 10:30 AM Note Text: 64 yo man referred for further evaluation of need for OLT by Dr. 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 phosphatidylethanol on 2020-06-23 PEth 16:0/18.2 <10 Normal 06-23-2020 [facility] ([id number]) Comment: Result Comment: (NOTE) Performed By: [facility] [address] [place] [address] Commutator Undercutter: Mary Kate Barksdale MD Performed By: #### PETH #### [facility] [address] [place], [place] [phone] PEth 16:0/18:1 <10 Normal 06-23-2020 [facility] ([id number]) Comment: Result Comment: (NOTE) INTERPRETIVE INFORMATION:Deisi sphatidylethanol (PEth), Whole Blood Phosphatidylethanol (PEth) h omologues Result Interpretation PEth 16:0/18:1 (POPEth) Less than 10 ng/mL.......... ..Not detected Less than 20 ng/mL.......... ..Abstinence or light alcohol consumption 20 - 200 ng/mL.............. ..Moderate alcohol consumption Greater than 200 ng/mL...... ..Heavy alcohol consumption or chronic alcohol use PEth 16:0/18:2 (PLPEth)..... ..Reference ranges are not well established. (Reference: Mars Leyva and Seble Baez 2018 J. Forensic Sci) Phosphatidylethanol (PEth) i s a group of phospholipids formed in the presence of ethanol, deisi spholipase D and phosphatidylcholine. PEth is known to be a direct alcohol biomarker. The predominant PEth homologues are PEth 16: 0/18:1 (POPEth) and PEth 16:0/18:2 (PLPEth), which account for 37-46% and 26-28% of the total PEth homologues, respectively. PE th is incorporated into the phospholipid membrane of red blood cells and has a general half-life of 4 - 10 days and a window of detection of 2-4 weeks. However, the window of detec tion is longer in individuals who chronically or excessively c onsume alcohol. The limit of quantification is 10 ng/mL. Serial monitoring of PEth may be helpful in monitoring alcoho l abstinence over time. PEth results should be interpreted in the context of the patient's clinical and behavioral history. Patients with advanced liver disease may have falsely elevated PEth concen trations (Deonna PAYNE et al 2018, Alcoholism Clinical & [facility] mental Research). Test developed and character istics determined by [employer]. See Compliance Statement B: [email or web address] Performed By: #### PETH #### [facility] [address] [place], [place] [phone] measles igg antibody on 2020-06-23 Measles IgG Ab, Positive Negative Critically abnormal 06-12-2019 [facility] ([id number]) Comment: Result Comment: Presence of detectable measles virus IgG antibodies. A positive result generally in dicates exposure to measles virus or previous vaccination. Performed By: #### EBVG, VIT A, EVIT, LIPB, HFP, FERR, VZVG2, PTT, IRON, TOXP, BMP, TSH, HREMOP, SARAH LG, VITD, AHAVT, PT, PSAS1, HIV12C, AFP, CMVG, SYPHTX, CBCDIF ####[place] [address] [place], [place] [phone]#### A 1APHE ####[facility] [place], [place] [phone] Measles IgG Antibody >300.0 Normal 06-23- 0 [facility] (15885) Comment: Result Comment: AU/mL Value interpreted as [...] PT, PSAS1, HIV12C, AFP, CMVG, SYPHTX, CBCDIF ####[facility] [place], [place] [phone]#### A 1APHE ####[facility] [place], [place] [phone] lipid panel, basic on 2020-06-23 Cholesterol [Mass/Vol] 108 <200 mg/dL Normal 020 [facility] (25548) Comment: Result Comment: <200 mg/dL, Desirable 200-239 mg/dL, Borderline hi gh >239 mg/dL, High Performed By: #### EBVG, VIT A, EVIT, LIPB, HFP, FERR, VZVG2, PTT, IRON, TOXP, BMP, TSH, HREMOP, SARAH LG, VITD, AHAVT, PT, PSAS1, HIV12C, AFP, CMVG, SYPHTX, CBCDIF ####[address] [phone]#### A 1APHE ####[address] [phone] Cholesterol in HDL 55 >39 mg/dL Normal 06-23-2020 [facility] [Mass/Vol] (45822) Comment: Result Comment: 40-59 mg/dL, Acceptable >59 mg/dL, High: Negative ri sk factor for coronary heart disease <40 mg/dL, Low: Positive ris k factor for coronary heart disease Performed By: #### EBVG, VIT A, EVIT, LIPB, HFP, FERR, VZVG2, PTT, IRON, TOXP, BMP, TSH, HREMOP, SARAH LG, VITD, AHAVT, PT, PSAS1, HIV12C, AFP, CMVG, SYPHTX, CBCDIF ####[facility] [place] [address] [phone]#### A 1APHE ####[address] [phone] Cholesterol in LDL 42 <100 mg/dL Normal 06-23-2020 [facility] [Mass/Vol] [place] (03031) Comment: Result Comment: <100 mg/dL, Optimal 100-129 [...] PT, PSAS1, HIV12C, AFP, CMVG, SYPHTX, CBCDIF ####[address] [phone]#### A 1APHE ####[facility] [address] [place], [place] [phone] Fasting Time 10 hrs Normal 06-23-2020 [facility] (35448) Comment: Performed By: #### EBVG, VIT A, EVIT, LIPB, HFP, FERR, VZVG2, PTT, IRON, TOXP, BMP, TSH, HREMOP, SARAH LG, VITD, AHAVT, PT, PSAS1, HIV12C, AFP, CMVG, SYPHTX, CBCDIF ####[address] [phone]#### A 1APHE ####[address] [phone] LDL:HDL Ratio 0.76 <2.54 Normal 06-23-2020 [facility] (64532) Comment: Result Comment: Reference: 1. National Cholesterol Educ ation Program ATP III Guideline At-A-Glance Quick Desk Reference: National Heart, Lung, and Blood [place]. National Institutes of Health. 2001: NIH Publication No. 01-3305. 2. An International Atherosc lerosis Society position paper: global recommendations for the management of dyslipidemia: executive summary, Atherosclerosis. 2014: 232(2):410-413. Performed By: #### EBVG, VIT A, EVIT, LIPB, HFP, FERR, VZVG2, PTT, IRON, TOXP, BMP, TSH, HREMOP, SARAH LG, VITD, AHAVT, PT, PSAS1, HIV12C, AFP, CMVG, SYPHTX, CBCDIF ####[address] [phone]#### A 1APHE ####[address] [phone] Non HDL Cholesterol 53 <130 mg/dL Normal 06-23-2020 [facility] (51555) Comment: Result Comment: <130 mg/dL, Optimal 130-159 [...] PT, PSAS1, HIV12C, AFP, CMVG, SYPHTX, CBCDIF ####[address] [phone]#### A 1APHE ####[address] [phone] TC:HDL Ratio 1.96 <5.10 Normal 06-23-2020 [facility] (96454) Comment: Performed By: #### EBVG, VIT A, EVIT, LIPB, HFP, FERR, VZVG2, PTT, IRON, TOXP, BMP, TSH, HREMOP, SARAH LG, VITD, AHAVT, PT, PSAS1, HIV12C, AFP, CMVG, SYPHTX, CBCDIF ####[address] [phone]#### A 1APHE ####[address] [phone] Triglyceride [Mass/Vol] 56 <150 mg/dL Normal 2019 [facility] (70131) Comment: Result Comment: <150 mg/dL, Normal 150-199 mg/dL, Borderline hi gh 200-499 mg/dL, High >499 mg/dL, Very high Performed By: #### EBVG, VIT A, EVIT, LIPB, HFP, FERR, VZVG2, PTT, IRON, TOXP, BMP, TSH, HREMOP, SARAH LG, VITD, AHAVT, PT, PSAS1, HIV12C, AFP, CMVG, SYPHTX, CBCDIF ####[address] [phone]#### A 1APHE ####[address] [phone] VLDL Cholesterol 11 <30 mg/dL Normal 06-23-2020 [facility] (65457) Comment: Performed By: #### EBVG, VIT A, EVIT, LIPB, HFP, FERR, VZVG2, PTT, IRON, TOXP, BMP, TSH, HREMOP, SARAH LG, VITD, AHAVT, PT, PSAS1, HIV12C, AFP, CMVG, SYPHTX, CBCDIF ####[address] [phone]#### A 1APHE ####[address] [phone] iron and tibc on 20 -06-23 Iron [Mass/Vol] 51 41-186 ug/dL Normal 06-23-2020 [facility] (97768) Comment: Performed By: #### EBVG, VIT A, EVIT, LIPB, HFP, FERR, VZVG2, PTT, IRON, TOXP, BMP, TSH, HREMOP, SARAH LG, VITD, AHAVT, PT, PSAS1, HIV12C, AFP, CMVG, SYPHTX, CBCDIF ####[address] [phone]#### A 1APHE ####[address] [phone] TIBC 218 232-386 ug/dL Low 06-23-2020 [facility] (12559) Comment: Performed By: #### EBVG, VIT A, EVIT, LIPB, HFP, FERR, VZVG2, PTT, IRON, TOXP, BMP, TSH, HREMOP, SARAH LG, VITD, AHAVT, PT, PSAS1, HIV12C, AFP, CMVG, SYPHTX, CBCDIF ####[address] [phone]#### A 1APHE ####[address] [phone] Transferrin Saturatn 23 15-57 % Normal 0 [facility] (38835) Comment: Performed By: #### EBVG, VIT A, EVIT, LIPB, HFP, FERR, VZVG2, PTT, IRON, TOXP, BMP, TSH, HREMOP, SARAH LG, VITD, AHAVT, PT, PSAS1, HIV12C, AFP, CMVG, SYPHTX, CBCDIF ####[address] [phone]#### A 1APHE ####[address] [phone] 78 [id number] ag +hiv12 ab on 2020-06-23 HIV 12 Ag/Ab Non Reactive Non Reactive Normal 06-23-2020 [facility] (33211) Comment: Performed By: #### EBVG, VIT A, EVIT, LIPB, HFP, FERR, VZVG2, PTT, IRON, TOXP, BMP, TSH, HREMOP, SARAH LG, VITD, AHAVT, PT, PSAS1, HIV12C, AFP, CMVG, SYPHTX, CBCDIF ####[address] [phone]#### A 1APHE ####[address] [phone] HIV-1/2 Antibody Normal 06-23-2020 [facility] (56537) Comment: Result Comment: Test Not Ind icated Negative No evidence of HIV-1 or HIV- 2 infection. Should recent infection be suspected, repeat testing may be considered 2-3 weeks after this draw. HIV Information: [place] Rev. C ode 3701.243(E): This information has [...] PT, PSAS1, HIV12C, AFP, CMVG, SYPHTX, CBCDIF ####[address] [phone]#### A 1APHE ####[facility] [address] [place] [address] [phone] hepatitis remote panel on 2020-06-23 HBsAg Negative Negative Normal 06-23-2020 [facility] (45989) Comment: Performed By: #### EBVG, VIT A, EVIT, LIPB, HFP, FERR, VZVG2, PTT, IRON, TOXP, BMP, TSH, HREMOP, SARAH LG, VITD, AHAVT, PT, PSAS1, HIV12C, AFP, CMVG, SYPHTX, CBCDIF ####[address] [phone]#### A 1APHE ####[facility] [address] [place], [place] [phone] Hep B Core Ab,Total Negative Negative Normal 06-23-2020 [facility] (20063) Comment: Performed By: #### EBVG, VIT A, EVIT, LIPB, HFP, FERR, VZVG2, PTT, IRON, TOXP, BMP, TSH, HREMOP, SARAH LG, VITD, AHAVT, PT, PSAS1, HIV12C, AFP, CMVG, SYPHTX, CBCDIF ####[address] [phone]#### A 1APHE ####[address] [phone] Hepatitis C Ab IA Negative Negative Normal 06-23-2020 [facility] (93098) Comment: Performed By: #### EBVG, VIT A, EVIT, LIPB, HFP, FERR, VZVG2, PTT, IRON, TOXP, BMP, TSH, HREMOP, SARAH LG, VITD, AHAVT, PT, PSAS1, HIV12C, AFP, CMVG, SYPHTX, CBCDIF ####[address] [phone]#### A 1APHE ####[address] [phone] HepB Surface Ab,Qual Negative Negative Normal 0 [facility] (67408) Comment: Result Comment: NEGATIVE Performed By: #### EBVG, VIT A, EVIT, LIPB, HFP, FERR, VZVG2, PTT, IRON, TOXP, BMP, TSH, HREMOP, SARAH LG, VITD, AHAVT, PT, PSAS1, HIV12C, AFP, CMVG, SYPHTX, CBCDIF ####[address] [phone]#### A 1APHE ####[address] [phone] hepatitis a ab total on 2020-06-23 Hepatitis A Ab Positive Negative Critically abnormal 06-23 [facility] (76645) Comment: Performed By: #### EBVG, VIT A, EVIT, LIPB, HFP, FERR, VZVG2, PTT, IRON, TOXP, BMP, TSH, HREMOP, SARAH LG, VITD, AHAVT, PT, PSAS1, HIV12C, AFP, CMVG, SYPHTX, CBCDIF ####[facility] [address] AveC[place], [place] [phone]#### A 1APHE ####[address] [phone] hepatic functn panel on 2020-06-23 Albumin [Mass/Vol] 3.2 3.9-4.9 g/dL Low 06-23-2020 [facility] (50639) Comment: Performed By: #### EBVG, VIT A, EVIT, LIPB, HFP, FERR, VZVG2, PTT, IRON, TOXP, BMP, TSH, HREMOP, SARAH LG, VITD, AHAVT, PT, PSAS1, HIV12C, AFP, CMVG, SYPHTX, CBCDIF ####[address] [phone]#### A 1APHE ####[address] [phone] ALP [Catalytic activity/Vol] 168 38-113 U/L High 1 [facility] (21759) Comment: Performed By: #### EBVG, VIT A, EVIT, LIPB, HFP, FERR, VZVG2, PTT, IRON, TOXP, BMP, TSH, HREMOP, SARAH LG, VITD, AHAVT, PT, PSAS1, HIV12C, AFP, CMVG, SYPHTX, CBCDIF ####[address] [phone]#### A 1APHE ####[address] [phone] ALT [Catalytic activity/Vol] 36 10-54 U/L Normal 1 [facility] (65906) Comment: Performed By: #### EBVG, VIT A, EVIT, LIPB, HFP, FERR, VZVG2, PTT, IRON, TOXP, BMP, TSH, HREMOP, SARAH LG, VITD, AHAVT, PT, PSAS1, HIV12C, AFP, CMVG, SYPHTX, CBCDIF ####[address] [phone]#### A 1APHE ####[address] [phone] AST [Catalytic activity/Vol] 60 14-40 U/L High 1 [facility] (94487) Comment: Performed By: #### EBVG, VIT A, EVIT, LIPB, HFP, FERR, VZVG2, PTT, IRON, TOXP, BMP, TSH, HREMOP, SARAH LG, VITD, AHAVT, PT, PSAS1, HIV12C, AFP, CMVG, SYPHTX, CBCDIF ####[address] [phone]#### A 1APHE ####[address] [phone] Bilirubin [Mass/Vol] 7.1 0.2-1.3 mg/dL High 0 [facility] (03473) Comment: Performed By: #### EBVG, VIT A, EVIT, LIPB, HFP, FERR, VZVG2, PTT, IRON, TOXP, BMP, TSH, HREMOP, SARAH LG, VITD, AHAVT, PT, PSAS1, HIV12C, AFP, CMVG, SYPHTX, CBCDIF ####[address] [phone]#### A 1APHE ####[address] [phone] Bilirubin,Conjugated 3.0 <0.2 mg/dL High 0 [facility] (57564) Comment: Performed By: #### EBVG, VIT A, EVIT, LIPB, HFP, FERR, VZVG2, PTT, IRON, TOXP, BMP, TSH, HREMOP, SARAH LG, VITD, AHAVT, PT, PSAS1, HIV12C, AFP, CMVG, SYPHTX, CBCDIF ####[address] [phone]#### A 1APHE ####[address] [phone] Protein [Mass/Vol] 7.2 6.3-8.0 g/dL Normal 06-23-2020 [facility] (31390) Comment: Performed By: #### EBVG, VIT A, EVIT, LIPB, HFP, FERR, VZVG2, PTT, IRON, TOXP, BMP, TSH, HREMOP, SARAH LG, VITD, AHAVT, PT, PSAS1, HIV12C, AFP, CMVG, SYPHTX, CBCDIF ####[address] [phone]#### A 1APHE ####[address] [phone] ferritin on 2020-06 Ferritin [Mass/Vol] 189.0 30.3-565.7 ng/mL Normal 0 [facility] (79271) Comment: Performed By: #### EBVG, VIT A, EVIT, LIPB, HFP, FERR, VZVG2, PTT, IRON, TOXP, BMP, TSH, HREMOP, SARAH LG, VITD, AHAVT, PT, PSAS1, HIV12C, AFP, CMVG, SYPHTX, CBCDIF ####[address] [phone]#### A 1APHE ####[address] [phone] ebv igg antibody on 2020-06-23 EBV VCA IgG >8.0 Normal 06-23-2020 [facility] (37990) Comment: Result Comment: AI VALUES AR E [...] PT, PSAS1, HIV12C, AFP, CMVG, SYPHTX, CBCDIF ####[address] [place], [place] [phone]#### A 1APHE ####[facility] [place], [place] [phone] EBV VCA IgG, Positive Negative Critically abnormal 020 [facility] (42722) Comment: Result Comment: Specimen is positive for [...] PT, PSAS1, HIV12C, AFP, CMVG, SYPHTX, CBCDIF ####[address] [place], [place] [phone]#### A 1APHE ####[facility] [place], [place] [phone] cnov on 2020-06-23 CNOV Office Visit (TXCTMN) Normal 06-23-20 20 [place] BECKY Escalante ([id number]) 1955 [facility] Date Time Provider Department ([id number]) 06/23/20 2:00 PM WIN TITUS TXCTMN During [...] ~ 230) -h/o Htn -h/o CAD -s/p [place] -> hospital ized at [facility] [place] [facility] in [place]; intubated x > 2 weeks -s/p PCI [...] No prv liver bx Hospitalized initially at [place] Evaluated and f/b Dr Boudreaux since Liver disease has been c/b -thrombocytopenia - s/p BM bx in [facility] - ok -[facility]ARAH / ARF while septic (?Abx related)-> on iHD while inpt @ [facility] 2016 -septic shock 2ndary to [...] Now referred for OLT eval Born, 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 Referring Provider: CONOR VANESSA [[id number]] Allergies As of Date: 06/23/2020 (Not on [...] 2020-06-23 CMV IgG Antibody >10.00 Normal 06-23-2020 [facility] (17398) Comment: Result Comment: U/mL values are interpreted [...] PT, PSAS1, HIV12C, AFP, CMVG, SYPHTX, CBCDIF ####[address] [phone]#### A 1APHE ####[address] [phone] CMV IgG Qual Positive Negative Critically abnormal 020 [facility] (57989) Comment: Result Comment: Presence of detectable CMV IgG antibodies indicates either recent or past exposure to C MV. Performed By: #### EBVG, VIT A, EVIT, LIPB, HFP, FERR, VZVG2, PTT, IRON, TOXP, BMP, TSH, HREMOP, SARAH LG, VITD, AHAVT, PT, PSAS1, HIV12C, AFP, CMVG, SYPHTX, CBCDIF ####[address] [phone]#### A 1APHE ####[facility] [address] [place], [place] [phone] cbc and differential on 2020-06-23 Abs Baso 0.04 <0.11 k/uL Normal 06-23-2020 [facility] (00927) Comment: Performed By: #### EBVG, VIT A, EVIT, LIPB, HFP, FERR, VZVG2, PTT, IRON, TOXP, BMP, TSH, HREMOP, SARAH LG, VITD, AHAVT, PT, PSAS1, HIV12C, AFP, CMVG, SYPHTX, CBCDIF ####[address] [phone]#### A 1APHE ####[address] [phone] Abs Peach 0.88 <0.87 k/uL High 06-23-2020 [facility] (94208) Comment: Performed By: #### EBVG, VIT A, EVIT, LIPB, HFP, FERR, VZVG2, PTT, IRON, TOXP, BMP, TSH, HREMOP, SARAH LG, VITD, AHAVT, PT, PSAS1, HIV12C, AFP, CMVG, SYPHTX, CBCDIF ####[address] [phone]#### A 1APHE ####[address] [phone] Abs Neut 5.23 1.45-7.50 k/uL Normal 06-23-2020 [facility] (83413) Comment: Performed By: #### EBVG, VIT A, EVIT, LIPB, HFP, FERR, VZVG2, PTT, IRON, TOXP, BMP, TSH, HREMOP, SARAH LG, VITD, AHAVT, PT, PSAS1, HIV12C, AFP, CMVG, SYPHTX, CBCDIF ####[address] [phone]#### A 1APHE ####[address] [phone] Absolute nRBC <0.01 <0.01 Normal 06-23-2020 [facility] (19419) Comment: Performed By: #### EBVG, VIT A, EVIT, LIPB, HFP, FERR, VZVG2, PTT, IRON, TOXP, BMP, TSH, HREMOP, SARAH LG, VITD, AHAVT, PT, PSAS1, HIV12C, AFP, CMVG, SYPHTX, CBCDIF ####[address] [phone]#### A 1APHE ####[address] [phone] Basophils/100 WBC (Bld) 0.5 % Normal 2019 [facility] (62698) Comment: Performed By: #### EBVG, VIT A, EVIT, LIPB, HFP, FERR, VZVG2, PTT, IRON, TOXP, BMP, TSH, HREMOP, SARAH LG, VITD, AHAVT, PT, PSAS1, HIV12C, AFP, CMVG, SYPHTX, CBCDIF ####[address] [phone]#### A 1APHE ####[address] [phone] DTYPE Auto Diff Normal 06-23-2020 [facility] (28996) Comment: Performed By: #### EBVG, VIT A, EVIT, LIPB, HFP, FERR, VZVG2, PTT, IRON, TOXP, BMP, TSH, HREMOP, SARAH LG, VITD, AHAVT, PT, PSAS1, HIV12C, AFP, CMVG, SYPHTX, CBCDIF ####[address] [phone]#### A 1APHE ####[address] [phone] Eosinophils (Bld) [#/Vol] 0.07 <0.46 k/uL Normal 06-12 [facility] (34803) Comment: Performed By: #### EBVG, VIT A, EVIT, LIPB, HFP, FERR, VZVG2, PTT, IRON, TOXP, BMP, TSH, HREMOP, SARAH LG, VITD, AHAVT, PT, PSAS1, HIV12C, AFP, CMVG, SYPHTX, CBCDIF ####[address] [phone]#### A 1APHE ####[address] [phone] Eosinophils/100 WBC (Bld) 0.9 % Normal 10- [facility] (72456) Comment: Performed By: #### EBVG, VIT A, EVIT, LIPB, HFP, FERR, VZVG2, PTT, IRON, TOXP, BMP, TSH, HREMOP, SARAH LG, VITD, AHAVT, PT, PSAS1, HIV12C, AFP, CMVG, SYPHTX, CBCDIF ####[address] [phone]#### A 1APHE ####[address] [phone] Erythrocyte distribution 23.6 11.5-15.0 % High 06-23 [facility] width (RBC) [Ratio] [place] (35868) Comment: Performed By: #### EBVG, VIT A, EVIT, LIPB, HFP, FERR, VZVG2, PTT, IRON, TOXP, BMP, TSH, HREMOP, SARAH LG, VITD, AHAVT, PT, PSAS1, HIV12C, AFP, CMVG, SYPHTX, CBCDIF ####[address] [phone]#### A 1APHE ####[address] [phone] Hematocrit (Bld) [Volume 25.9 39.0-51.0 % Low 06-23 [facility] (60758) Comment: Performed By: #### EBVG, VIT A, EVIT, LIPB, HFP, FERR, VZVG2, PTT, IRON, TOXP, BMP, TSH, HREMOP, SARAH LG, VITD, AHAVT, PT, PSAS1, HIV12C, AFP, CMVG, SYPHTX, CBCDIF ####[address] [phone]#### A 1APHE ####[address] [phone] Hemoglobin (Bld) 7.9 13.0-17.0 g/dL Low 06-23-2020 [facility] [Mass/Vol] [place] (60332) Comment: Performed By: #### EBVG, VIT A, EVIT, LIPB, HFP, FERR, VZVG2, PTT, IRON, TOXP, BMP, TSH, HREMOP, SARAH LG, VITD, AHAVT, PT, PSAS1, HIV12C, AFP, CMVG, SYPHTX, CBCDIF ####[address] [phone]#### A 1APHE ####[address] [phone] Lymphocytes (Bld) [#/Vol] 1.52 1.00-4.00 k/uL Normal 06-12 [facility] (30624) Comment: Performed By: #### EBVG, VIT A, EVIT, LIPB, HFP, FERR, VZVG2, PTT, IRON, TOXP, BMP, TSH, HREMOP, SARAH LG, VITD, AHAVT, PT, PSAS1, HIV12C, AFP, CMVG, SYPHTX, CBCDIF ####[address] [phone]#### A 1APHE ####[address] [phone] 78 Lymphocytes/100 WBC (Bld) 19.6 % Normal 06-12 [facility] ([id number]) Comment: Performed By: #### EBVG, VIT A, EVIT, LIPB, HFP, FERR, VZVG2, PTT, IRON, TOXP, BMP, TSH, HREMOP, SARAH LG, VITD, AHAVT, PT, PSAS1, HIV12C, AFP, CMVG, SYPHTX, CBCDIF ####[address] [phone]#### A 1APHE ####[address] [phone] MCH (RBC) [Entitic mass] 30.2 26.0-34.0 pG Normal 06-23 [facility] ([id number]) Comment: Performed By: #### EBVG, VIT A, EVIT, LIPB, HFP, FERR, VZVG2, PTT, IRON, TOXP, BMP, TSH, HREMOP, SARAH LG, VITD, AHAVT, PT, PSAS1, HIV12C, AFP, CMVG, SYPHTX, CBCDIF ####[address] [phone]#### A 1APHE ####[address] [phone] MCHC (RBC) [Mass/Vol] 30.5 30.5-36.0 g/dL Normal 06-23-20 [facility] ([id number]) Comment: Performed By: #### EBVG, VIT A, EVIT, LIPB, HFP, FERR, VZVG2, PTT, IRON, TOXP, BMP, TSH, HREMOP, SARAH LG, VITD, AHAVT, PT, PSAS1, HIV12C, AFP, CMVG, SYPHTX, CBCDIF ####[address] [phone]#### A 1APHE ####[address] [phone] MCV (RBC) [Entitic vol] 98.9 80.0-100.0 fL Normal 06-23 [facility] ([id number]) Comment: Performed By: #### EBVG, VIT A, EVIT, LIPB, HFP, FERR, VZVG2, PTT, IRON, TOXP, BMP, TSH, HREMOP, SARAH LG, VITD, AHAVT, PT, PSAS1, HIV12C, AFP, CMVG, SYPHTX, CBCDIF ####[place] [phone]#### A 1APHE ####[address] [phone] 78 Monocytes/100 WBC (Bld) 11.4 % Normal 2019 [facility] ([id number]) Comment: Performed By: #### EBVG, VIT A, EVIT, LIPB, HFP, FERR, VZVG2, PTT, IRON, TOXP, BMP, TSH, HREMOP, SARAH LG, VITD, AHAVT, PT, PSAS1, HIV12C, AFP, CMVG, SYPHTX, CBCDIF ####[place] [phone]#### A 1APHE ####[place], [place] [phone] 78 Neutrophils/100 WBC (Bld) 67.6 % Normal 06-12 [facility] ([id number]) Comment: Performed By: #### EBVG, VIT A, EVIT, LIPB, HFP, FERR, VZVG2, PTT, IRON, TOXP, BMP, TSH, HREMOP, SARAH LG, VITD, AHAVT, PT, PSAS1, HIV12C, AFP, CMVG, SYPHTX, CBCDIF ####[place] [phone]#### A 1APHE ####[address] [phone] 78 NRBCs 0.0 0 /100 WBC Normal 06-23-2020 [facility] ([id number]) Comment: Performed By: #### EBVG, VIT A, EVIT, LIPB, HFP, FERR, VZVG2, PTT, IRON, TOXP, BMP, TSH, HREMOP, SARAH LG, VITD, AHAVT, PT, PSAS1, HIV12C, AFP, CMVG, SYPHTX, CBCDIF ####[address] [phone]#### A 1APHE ####[address] [phone] Platelet mean volume 10.4 9.0-12.7 fL Normal 0 [facility] (d) [Entitic vol] [place] ([address]43) Comment: Performed By: #### EBVG, VIT A, EVIT, LIPB, HFP, FERR, VZVG2, PTT, IRON, TOXP, BMP, TSH, HREMOP, SARAH LG, VITD, AHAVT, PT, PSAS1, HIV12C, AFP, CMVG, SYPHTX, CBCDIF ####[address] [phone]#### A 1APHE ####[address] [phone] Platelets (d) [#/Vol] 115 150-400 k/uL Low 2019 [facility] (96276) Comment: Performed By: #### EBVG, VIT A, EVIT, LIPB, HFP, FERR, VZVG2, PTT, IRON, TOXP, BMP, TSH, HREMOP, SARAH LG, VITD, AHAVT, PT, PSAS1, HIV12C, AFP, CMVG, SYPHTX, CBCDIF ####[address] [phone]#### A 1APHE ####[address] [phone] RBC (d) [#/Vol] 2.62 4.20-6.00 m/uL Low 06-23-2020 [facility] (66602) Comment: Performed By: #### EBVG, VIT A, EVIT, LIPB, HFP, FERR, VZVG2, PTT, IRON, TOXP, BMP, TSH, HREMOP, SARAH LG, VITD, AHAVT, PT, PSAS1, HIV12C, AFP, CMVG, SYPHTX, CBCDIF ####[address] [phone]#### A 1APHE ####[address] [phone] WBC (Bld) [#/Vol] 7.74 3.70-11.00 k/uL Normal 06-23-2020 [facility] (01950) Comment: Performed By: #### EBVG, VIT A, EVIT, LIPB, HFP, FERR, VZVG2, PTT, IRON, TOXP, BMP, TSH, HREMOP, SARAH LG, VITD, AHAVT, PT, PSAS1, HIV12C, AFP, CMVG, SYPHTX, CBCDIF ####[address] [phone]#### A 1APHE ####[address] [phone] basic metabolic panl on 2020-06-23 Anion gap [Moles/Vol] 10 9-18 mmol/L Normal 06-23-20 [facility] (33901) Comment: Performed By: #### EBVG, VIT A, EVIT, LIPB, HFP, FERR, VZVG2, PTT, IRON, TOXP, BMP, TSH, HREMOP, SARAH LG, VITD, AHAVT, PT, PSAS1, HIV12C, AFP, CMVG, SYPHTX, CBCDIF ####[address] [phone]#### A 1APHE ####[address] [phone] Calcium [Mass/Vol] 9.0 8.5-10.2 mg/dL Normal 06-23-2020 [facility] (27713) Comment: Performed By: #### EBVG, VIT A, EVIT, LIPB, HFP, FERR, VZVG2, PTT, IRON, TOXP, BMP, TSH, HREMOP, SARAH LG, VITD, AHAVT, PT, PSAS1, HIV12C, AFP, CMVG, SYPHTX, CBCDIF ####[address] [phone]#### A 1APHE ####[address] [phone] Chloride [Moles/Vol] 98 97-105 mmol/L Normal 0 [facility] (80340) Comment: Performed By: #### EBVG, VIT A, EVIT, LIPB, HFP, FERR, VZVG2, PTT, IRON, TOXP, BMP, TSH, HREMOP, SARAH LG, VITD, AHAVT, PT, PSAS1, HIV12C, AFP, CMVG, SYPHTX, CBCDIF ####[address] [phone]#### A 1APHE ####[address] [phone] CO2 [Moles/Vol] 23 22-30 mmol/L Normal 06-23-2020 [facility] (27805) Comment: Performed By: #### EBVG, VIT A, EVIT, LIPB, HFP, FERR, VZVG2, PTT, IRON, TOXP, BMP, TSH, HREMOP, SARAH LG, VITD, AHAVT, PT, PSAS1, HIV12C, AFP, CMVG, SYPHTX, CBCDIF ####[address] [phone]#### A 1APHE ####[address] [phone] Creatinine [Mass/Vol] 0.90 0.73-1.22 mg/dL Normal 06-23-20 20 [facility] (25486) Comment: Performed By: #### EBVG, VIT A, EVIT, LIPB, HFP, FERR, VZVG2, PTT, IRON, TOXP, BMP, TSH, HREMOP, SARAH LG, VITD, AHAVT, PT, PSAS1, HIV12C, AFP, CMVG, SYPHTX, CBCDIF ####[facility] [place], [place] [phone]#### A 1APHE ####[facility] [address] [place], [place] [phone] eGFR- Amer. >60 Normal 06-23-2020 [facility] (28362) Comment: Performed By: #### EBVG, VIT A, EVIT, LIPB, HFP, FERR, VZVG2, PTT, IRON, TOXP, BMP, TSH, HREMOP, SARAH LG, VITD, AHAVT, PT, PSAS1, HIV12C, AFP, CMVG, SYPHTX, CBCDIF ####[place] [address] [place], [place] [phone]#### A 1APHE ####[address] [phone] GFR/1.73 sq M predicted >60 mL/min/{1.73_m2} Normal 06-23-2020 [facility] among non-blacks [facility] (83110) (S/P/Bld) [Vol rate/Area] Comment: Result Comment: eGFR [...] PT, PSAS1, HIV12C, AFP, CMVG, SYPHTX, CBCDIF ####[facility] [place], [place] [phone]#### A 1APHE ####[facility] [place], [place] [phone] Glucose [Mass/Vol] 174 74-99 mg/dL High 06-23-2020 [facility] (52403) Comment: Result Comment: The [place] [employer] (ADA) provides guidance for cutoff [...] for diagnosis of diabetes. Reference: Standards of [facility] Care in Diabetes 2016, [place] [employer]. Diabetes Care. 2016.39(Suppl 1). Performed By: #### EBVG, VIT A, EVIT, LIPB, HFP, FERR, VZVG2, PTT, IRON, TOXP, BMP, TSH, HREMOP, SARAH LG, VITD, AHAVT, PT, PSAS1, HIV12C, AFP, CMVG, SYPHTX, CBCDIF ####[facility] [place], [place] [phone]#### A 1APHE ####[facility] [place], [place] [phone] Potassium [Moles/Vol] 3.9 3.7-5.1 mmol/L Normal 06-23-20 [facility] (11238) Comment: Performed By: #### EBVG, VIT A, EVIT, LIPB, HFP, FERR, VZVG2, PTT, IRON, TOXP, BMP, TSH, HREMOP, SARAH LG, VITD, AHAVT, PT, PSAS1, HIV12C, AFP, CMVG, SYPHTX, CBCDIF ####[address] [phone]#### A 1APHE ####[address] [phone] Sodium [Moles/Vol] 131 136-144 mmol/L Low 06-23-2020 [facility] (86605) Comment: Performed By: #### EBVG, VIT A, EVIT, LIPB, HFP, FERR, VZVG2, PTT, IRON, TOXP, BMP, TSH, HREMOP, SARAH LG, VITD, AHAVT, PT, PSAS1, HIV12C, AFP, CMVG, SYPHTX, CBCDIF ####[address] [phone]#### A 1APHE ####[address] [phone] Urea nitrogen [Mass/Vol] 18 9-24 mg/dL Normal 06-23 [facility] (14848) Comment: Performed By: #### EBVG, VIT A, EVIT, LIPB, HFP, FERR, VZVG2, PTT, IRON, TOXP, BMP, TSH, HREMOP, SARAH LG, VITD, AHAVT, PT, PSAS1, HIV12C, AFP, CMVG, SYPHTX, CBCDIF ####[address] [phone]#### A 1APHE ####[address] [phone] aptt on 2020-06-23 aPTT Coag (Bld) [Time] 25.6 23.0-32.4 sec Normal 020 [facility] (02551) Comment: Result Comment: Unfractionat ed Heparin Therapeutic [...] laboratory APTT reagent in use throughout the [facility]. Performed By: #### EBVG, VIT A, EVIT, LIPB, HFP, FERR, VZVG2, PTT, IRON, TOXP, BMP, TSH, HREMOP, SARAH LG, VITD, AHAVT, PT, PSAS1, HIV12C, AFP, CMVG, SYPHTX, CBCDIF ####[place] [address] [place], [place] [phone]#### A 1APHE ####[address] [phone] alpha1 antitry pheno on 2020-06-23 Alpha1 Antitry Phen M1M2 Normal 06-23-2020 [facility] (51637) Comment: Result Comment: (NOTE) The patient appears to have a normal phenotype. All M alleles (including subtypes M1, M2, and M3) produce normal serum concentrations of alpha-1-pr otease inhibitor and are not associated with clinical dis ease. Caution in interpretation is advised if the patient has b een transfused within the previous 21 days. Performed By: [facility] [address] [place] [address] Commutator Undercutter: Mary Kate Barksdale MD Performed By: #### EBVG, VIT A, EVIT, LIPB, HFP, FERR, VZVG2, PTT, IRON, TOXP, BMP, TSH, HREMOP, SARAH LG, VITD, AHAVT, PT, PSAS1, HIV12C, AFP, CMVG, SYPHTX, CBCDIF ####[facility] [address] [place], [place] [phone]#### A 1APHE ####[facility] [address] [place], [place] [phone] Alpha1 Antitry Serum 186 90-200 mg/dL Normal 0 [facility] (87124) Comment: Result Comment: (NOTE) To convert to umol/L, multip ly mg/dL by 0.185 Performed By: #### EBVG, VIT A, EVIT, LIPB, HFP, FERR, VZVG2, PTT, IRON, TOXP, BMP, TSH, HREMOP, SARAH LG, VITD, AHAVT, PT, PSAS1, HIV12C, AFP, CMVG, SYPHTX, CBCDIF ####[place] [address] [place], [place] [phone]#### A 1APHE ####[address] [phone] afp on 2020-06-23 AFP <3.0 <11.0 Normal 06-23-2020 [facility] (33434) Comment: Result Comment: AFP levels < 11 [...] PT, PSAS1, HIV12C, AFP, CMVG, SYPHTX, CBCDIF ####[place] [address] [place], [place] [phone]#### A 1APHE ####[address] [phone] cnpn on 2020-06-20 CNPN Telephone (TXCTMN) Normal 06-20-2020 [place] BECKY Escalante ([id number]) 1955 Sameer ORTIZ [place] Date Time Provider Department (11685) 06/20/20 OMERO HENRY (RN) TXCTMN During your [...] questions answered. In formed patient to call cosmetic account coordinator with any questions. ? UNOS information regarding multiple listings for organ tra nsplantation ? A copy of [place] [facility] [employer] (OSOTC) gabby sampson. The information was reviewed with patient and all questions answ ered. ? Evaluation process including presentation to selection com mittee, OSOTC approval and listing criteria ? Surgical procedure, including post-operative management, hospitalization, immunosuppressive medications and their side effects ( including the risk for hypertension, diabetes, kidney problems and cancers) a nd terminal make up operator follow up after transplant. Possibility of recurrent [...] also addressed ? Patient was provided with [facility] information she et regarding transplantation [...] by Medicare Part B. INFORMED CONSENT Becky Shannon Foster Medical Record: [id number] Informed consent for Organ Transplant Program Participation [...] have questions answered. Omero Henry, RN, MSN, [facility] Liver Transplant Coordina alexis June 20, 2020 Allergies As of Date: 06/20/2020 (Not on File) Date Reviewed: Never Reviewed Reason for Visit: Pt. Ed ( Informed Consent) [970] Prescriptions as of 06/20/2020 Sig: PERFLUTREN LIPID MICROSPHERES* Inject 1.3 mL intravenously a * Problem List As Of Date: 06/20/2020 (None) Encounter Status:Closed by OMERO HENRY on 06/20/20 cnpn on 2020-06-19 CNPN Telephone (TXCTMN) Normal 06-19-2020 [place] BECKY Escalante ([id number]) 1955 [facility] Date Time Provider Department (19158) 06/19/20 LIVER TXP COORDINATOR TXCTMN During your [...] Erythrocyte distribution 24.2 11.5-14.5 % High 06-18 [facility] width (RBC) [Ratio] ([place]) (47205) Comment: Performed By: #### MORPH, CB C, ADIFF, ANEU, GFR, MG, BMP ####[place] [address] [place] [phone] Performed By: #### BMP, MG, GFR, MORPH, CBC, ADIFF, ANEU ####[place] [address] [place] [phone] Hematocrit (Bld) [Volume 22.2 42.0-52.0 % Low 06-18 [facility] fraction] ([place]) (0000 0) Comment: Performed By: #### MORPH, CB C, ADIFF, ANEU, GFR, MG, BMP ####[place] [address] [place] [phone] Performed By: #### BMP, MG, GFR, MORPH, CBC, ADIFF, ANEU ####[place] [place] [phone] Hemoglobin (Bld) 7.4 14.0-18.0 G/dL Low 06-18-2020 [facility] [Mass/Vol] ([place]) (000 00) Comment: Performed By: #### MORPH, CB C, ADIFF, ANEU, GFR, MG, BMP ####[place] [address] [place] [phone] Performed By: #### BMP, MG, GFR, MORPH, CBC, ADIFF, ANEU ####[place] [address] [place] [phone] MCH (RBC) [Entitic mass] 31.4 27.0-31.2 pg High 06-18 [facility] ([place]) (0000 0) Comment: Performed By: #### MORPH, CB C, ADIFF, ANEU, GFR, MG, BMP ####[place] [address] [place], [place] [address] Performed By: #### BMP, MG, GFR, MORPH, CBC, ADIFF, ANEU ####[place] [address] [place], [place] [address] MCHC (RBC) [Mass/Vol] 33.5 31.8-35.4 G/dL Normal 06-18-20 20 [facility] ([place]) (0000 0) Comment: Performed By: #### MORPH, CB C, ADIFF, ANEU, GFR, MG, BMP ####[place] [address] [place], [place] [address] Performed By: #### BMP, MG, GFR, MORPH, CBC, ADIFF, ANEU ####[place] [address] [place] [address] MCV (RBC) [Entitic vol] 93.7 80.0-94.0 fL Normal 2019 [facility] ([place]) (0000 0) Comment: Performed By: #### MORPH, CB C, ADIFF, ANEU, GFR, MG, BMP ####[place] [address] [place], [place] [address] Performed By: #### BMP, MG, GFR, MORPH, CBC, ADIFF, ANEU ####[place] [address] [place] [phone] Platelet mean volume 7.8 7.4-10.4 fL Normal 0 [facility] (Bld) [Entitic vol] ([place]) (64046) Comment: Performed By: #### MORPH, CB C, ADIFF, ANEU, GFR, MG, BMP ####[place] [address] [place], [place] [address] Performed By: #### BMP, MG, GFR, MORPH, CBC, ADIFF, ANEU ####[place] [address] [place] [address] Platelets (Bld) [#/Vol] 84 130-400 10 3/mcL Low 2019 [facility] ([place]) (0000 0) Comment: Performed By: #### MORPH, CB C, ADIFF, ANEU, GFR, MG, BMP ####[place] [address] [place], [place] [address] Performed By: #### BMP, MG, GFR, MORPH, CBC, ADIFF, ANEU ####[place] [address] [place], [place] [address] RBC (Bld) [#/Vol] 2.36 4.04-6.13 10 6/mcL Low 06-18-2020 [facility] ([place]) (0000 0) Comment: Performed By: #### MORPH, CB C, ADIFF, ANEU, GFR, MG, BMP ####[place] [address] [place] [address] Performed By: #### BMP, MG, GFR, MORPH, CBC, ADIFF, ANEU ####[place] [address] [place], [place] [address] WBC (Bld) [#/Vol] 4.40 4.60-10.80 10 3/mcL Low 06-18-2020 [facility] ([place]) (0000 0) Comment: Performed By: #### MORPH, CB C, ADIFF, ANEU, GFR, MG, BMP ####[place] [address] [place] [address] Performed By: #### BMP, MG, GFR, MORPH, CBC, ADIFF, ANEU ####[place] [address] [place], [place] [address] .neuabs on Neutrophils (Bld) 3.10 2.85-6.16 10 3/mcL Normal 06-18-2020 [facility] [#/Vol] [facility] ([place]) (42169) Comment: Performed By: #### ANEU, CMP , GFR, ADIFF, CBC #### [place] [address] [address] Performed By: #### CBC, ADIF F, ANEU, CMP, GFR #### [facility] [address] [place], [place] [address] .morph on 7 Anisocytosis Ql (Bld) Slight Normal 06-18-20 [facility] ([place]) (79720) Comment: Performed By: #### MORPH, CB C, ADIFF, ANEU, GFR, MG, BMP ####[facility] [place] [address] Performed By: #### BMP, MG, GFR, MORPH, CBC, ADIFF, ANEU ####[facility] [place], [place] [address] Basophilic stippling LM Ql Slight Normal [facility] (d) ([place]) (0000 0) Comment: Performed By: #### MORPH, CB C, ADIFF, ANEU, GFR, MG, BMP ####[facility] [place] [address] Performed By: #### BMP, MG, GFR, MORPH, CBC, ADIFF, ANEU ####[facility] [place] [address] Hypochrom Slight Normal 06-18-2020 [facility] ([place]) (93086) Comment: Performed By: #### MORPH, CB C, ADIFF, ANEU, GFR, MG, BMP ####[facility] [place], [place] [address] Performed By: #### BMP, MG, GFR, MORPH, CBC, ADIFF, ANEU ####[facility] [place], [place] [address] Macrocytosis Slight Normal 06-18-2020 [facility] ([place]) (05349) Comment: Performed By: #### MORPH, CB C, ADIFF, ANEU, GFR, MG, BMP ####[facility] [place], [place] [address] Performed By: #### BMP, MG, GFR, MORPH, CBC, ADIFF, ANEU ####[facility] [place] 172227 Platelets (Bld) [#/Vol] Decreased Normal 2019 [facility] ([place]) (0000 0) Comment: Performed By: #### MORPH, CB C, ADIFF, ANEU, GFR, MG, BMP ####[address] [address] Performed By: #### BMP, MG, GFR, MORPH, CBC, ADIFF, ANEU ####[address] [address] .auto diff on 06-18 Ammonia (P) [Mass/Vol] 0.60 0.15-1.00 10 3/mcL Normal 020 [facility] ([place]) (87885) Comment: Performed By: #### ANEU, CMP , GFR, ADIFF, CBC #### [address] [address] Performed By: #### CBC, ADIF F, ANEU, CMP, GFR #### [address] [address] Basophils (Bld) 0.00 0.00-0.19 10 3/mcL Normal 06-18-2020 [facility] [#/Vol] [facility] ([place]) (24999) Comment: Performed By: #### ANEU, CMP , GFR, ADIFF, CBC #### [address] [address] Performed By: #### CBC, ADIF F, ANEU, CMP, GFR #### [address] [address] Basophils/100 WBC (Bld) 0.6 0.0-2.5 % Normal 2019 [facility] ([place]) (0000 0) Comment: Performed By: #### ANEU, CMP , GFR, ADIFF, CBC #### [address] [address] Performed By: #### CBC, ADIF F, ANEU, CMP, GFR #### [address] [address] Eosinophils (Bld) 0.00 0.00-0.40 10 3/mcL Normal 06-18-2020 [facility] [#/Vol] [facility] ([place]) (45921) Comment: Performed By: #### ANEU, CMP , GFR, ADIFF, CBC #### [address] [address] Performed By: #### CBC, ADIF F, ANEU, CMP, GFR #### [address] [address] Eosinophils/100 WBC (Bld) 0.7 0.0-7.0 % Normal 10-0 [facility] ([place]) (0000 0) Comment: Performed By: #### ANEU, CMP , GFR, ADIFF, CBC #### [address] [address] Performed By: #### CBC, ADIF F, ANEU, CMP, GFR #### [address] [address] Lymphocytes (Bld) 0.60 0.77-3.85 10 3/mcL Low 06-18-2020 [facility] [#/Vol] [facility] ([place]) (25021) Comment: Performed By: #### ANEU, CMP , GFR, ADIFF, CBC #### [address] [address] Performed By: #### CBC, ADIF F, ANEU, CMP, GFR #### [address] [address] Lymphocytes/100 WBC (Bld) 14.2 10.0-50.0 % Normal 10-0 [facility] ([place]) (01952) Comment: Performed By: #### ANEU, CMP , GFR, ADIFF, CBC #### [address] [address] Performed By: #### CBC, ADIF F, ANEU, CMP, GFR #### [address] [address] Monocytes/100 WBC (Bld) 13.3 1.7-13.0 % High 2019 [facility] ([place]) (0000 0) Comment: Performed By: #### ANEU, CMP , GFR, ADIFF, CBC #### [address] [address] Performed By: #### CBC, ADIF F, ANEU, CMP, GFR #### [place] [address] [place], [place] [address] Neutrophils/100 WBC (Bld) 71.2 37.0-80.0 % Normal [facility] ([place]) (19067) Comment: Performed By: #### ANEU, CMP , GFR, ADIFF, CBC #### [place] [address] [address] Performed By: #### CBC, ADIF F, ANEU, CMP, GFR #### [address] [address] mg on 2020-06-17 Magnesium [Mass/Vol] 2.0 1.8-2.4 mg/dL Normal 0 [facility] ([place]) (0000 0) Comment: Performed By: #### MORPH, CB C, ADIFF, ANEU, GFR, MG, BMP ####[facility] [place] [address] Performed By: #### BMP, MG, GFR, MORPH, CBC, ADIFF, ANEU ####[facility] [place] [address] bmp on 2020-06-17 Calcium [Mass/Vol] 8.4 8.4-10.2 mg/dL Normal 06-17-2020 [facility] ([place]) (0000 0) Comment: Performed By: #### MORPH, CB C, ADIFF, ANEU, GFR, MG, BMP ####[facility] [place] [address] Performed By: #### BMP, MG, GFR, MORPH, CBC, ADIFF, ANEU ####[place] [address] [place], [place] [address] Chloride [Moles/Vol] 103 98-107 mmol/L Normal 0 [facility] ([place]) (0000 0) Comment: Performed By: #### MORPH, CB C, ADIFF, ANEU, GFR, MG, BMP ####[place] [address] [place], [place] [address] Performed By: #### BMP, MG, GFR, MORPH, CBC, ADIFF, ANEU ####[place] [address] [place], [place] [address] CO2 [Moles/Vol] 24 23-31 mmol/L Normal 06-17-2020 [facility] ([place]) (86501) Comment: Performed By: #### MORPH, CB C, ADIFF, ANEU, GFR, MG, BMP ####[place] [address] [place], [place] [address] Performed By: #### BMP, MG, GFR, MORPH, CBC, ADIFF, ANEU ####[place] [address] [place] [address] Creatinine [Mass/Vol] 0.86 0.70-1.30 mg/dL Normal 06-17-20 [facility] ([place]) (84385) Comment: Performed By: #### MORPH, CB C, ADIFF, ANEU, GFR, MG, BMP ####[place] [place] [address] Performed By: #### BMP, MG, GFR, MORPH, CBC, ADIFF, ANEU ####[place] [place] [id number] Electrolyte Balance 9.0 mEq/L Normal 06-17-2020 [facility] ([place]) (34652) Comment: Performed By: #### MORPH, CB C, ADIFF, ANEU, GFR, MG, BMP ####[place] [place] [id number] Performed By: #### BMP, MG, GFR, MORPH, CBC, ADIFF, ANEU ####[place] [address] [place] [address] Glucose [Mass/Vol] 157 80-115 mg/dL High 06-17-2020 [facility] ([place]) (38324) Comment: Performed By: #### MORPH, CB C, ADIFF, ANEU, GFR, MG, BMP ####[place] [address] [place], [place] [address] Performed By: #### BMP, MG, GFR, MORPH, CBC, ADIFF, ANEU ####[place] [address] [place], [place] [address] Potassium [Moles/Vol] 4.5 3.5-5.1 mmol/L Normal 06-17-20 [facility] ([place]) (0000 0) Comment: Performed By: #### MORPH, CB C, ADIFF, ANEU, GFR, MG, BMP ####[place] [address] [place], [place] [address] Performed By: #### BMP, MG, GFR, MORPH, CBC, ADIFF, ANEU ####[place] [address] [place], [place] [address] Sodium [Moles/Vol] 136 136-145 mmol/L Normal 06-17-2020 [facility] ([place]) (0000 0) Comment: Performed By: #### MORPH, CB C, ADIFF, ANEU, GFR, MG, BMP ####[place] [address] [place], [place] [address] Performed By: #### BMP, MG, GFR, MORPH, CBC, ADIFF, ANEU ####[place] [address] [place], [place] [address] Urea nitrogen [Mass/Vol] 17 7-18 mg/dL Normal 06-17 [facility] ([place]) (0000 0) Comment: Performed By: #### MORPH, CB C, ADIFF, ANEU, GFR, MG, BMP ####[place] [address] [place], [place] [address] Performed By: #### BMP, MG, GFR, MORPH, CBC, ADIFF, ANEU ####[place] [address] [place], [place] [address] Urea nitrogen/Creatinine [Mass 20 7-27 ratio Normal 06-17-2020 [facility]] [facility] ([place]) (08419) Comment: Performed By: #### MORPH, CB C, ADIFF, ANEU, GFR, MG, BMP ####[place] [address] [place], [place] [address] Performed By: #### BMP, MG, GFR, MORPH, CBC, ADIFF, ANEU ####[place] [address] [place], [place] [address] .gfr on 2020-06-17 GFR 109 ml/min/1.73sqm Normal [facility] ([place]) (0000 0) Comment: Result Comment: GFR Population mean for Afri can [place], Non- Americans Ages 20-29 = 116 mL/min/1.73 [...] ADIFF, ANEU, GFR, MG, BMP ####[place] [address] [place], [place] [address] Performed By: #### BMP, MG, GFR, MORPH, CBC, ADIFF, ANEU ####[place] [address] [place], [place] [address] GFR Non- 90 ml/min/1.73sqm Normal 06-17-2020 [facility] ([place]) (88530) Comment: Result Comment: GFR Population mean for Afri can [place], Non- Americans Ages 20-29 = 116 mL/min/1.73 [...] CB C, ADIFF, ANEU, GFR, MG, BMP ####[place] [address] [place], [place] [address] Performed By: #### BMP, MG, GFR, MORPH, CBC, ADIFF, ANEU ####[place] [address] [place], [place] [address] xr chest 2 views on 2020-06-04 XR CHEST 2 VIEWS ORIGINAL Normal 06-04-[address] [facility] XR CHEST 2 VIEWS Fou ndation ([place]) ([address]) CLINICAL STATEMENT: sob. COMPARISON: 03/17/2020 FINDINGS: The [...] 2020-06-04 US ABDOMEN FOR ORIGINAL Normal 06-04-2020 [facility] ASCITES Limited ultrasound the abdomen [facility] ([place]) ([address]) HISTORY: Ascites COMPARISON: 03/12/2019 FINDINGS: Moderate ascites noted. Interpreted By: Edwin Oconnor MD Preliminary Report By: Edwin Oconnor MD Electronically Signed By: Edwin Oconnor MD Dictated Date: 06/04/2020 4:01:42 PM Prelim Date: 06/04/2020 4:01:42 PM Sign Date: 06/04/2020 4:02:08 PM Ordering Provider:Jesse Valdivia pro on 2020-06-04 INR Coag (PPP) [Relative 1.6 0.9-1.2 ratio High 06-04 [facility] time] ([place]) (0000 0) Comment: Result Comment: [...] , ADIFF, CBC, GFR, PRO ####[address] [place] [id number] Performed By: #### CBC, ADIF F, ANEU, PRO, BMP, GFR ####[address] [place] [id number] PT Coag (PPP) [Time] 18.8 9.7-14.7 seconds High 0 [facility] ([place]) (0000 0) Comment: Performed By: #### BMP, ANEU , ADIFF, CBC, GFR, PRO ####[address] [place] [address] Performed By: #### CBC, ADIF F, ANEU, PRO, BMP, GFR ####[address] [place] [id number] cbc on 2020-06-04 Erythrocyte distribution 23.6 11.5-14.5 % High 06-04 [facility] width (RBC) [Ratio] ([place]) ([address]) Comment: Performed By: #### BMP, ANEU , ADIFF, CBC, GFR, PRO ####[address] [place] [id number] Performed By: #### CBC, ADIF F, ANEU, PRO, BMP, GFR ####[address] [place] [id number] Hematocrit (Bld) [Volume 24.5 42.0-52.0 % Low 06-04 [facility] fraction] ([place]) (0000 0) Comment: Performed By: #### BMP, ANEU , ADIFF, CBC, GFR, PRO ####[address] [place] [id number] Performed By: #### CBC, ADIF F, ANEU, PRO, BMP, GFR ####[place] [id number] Hemoglobin (Bld) 8.0 14.0-18.0 G/dL Low 06-04-2020 [facility] [Mass/Vol] ([place]) (000 00) Comment: Performed By: #### BMP, ANEU , ADIFF, CBC, GFR, PRO ####[place] [id number] Performed By: #### CBC, ADIF F, ANEU, PRO, BMP, GFR ####[place] [id number] [facility] (RBC) [Entitic mass] 31.2 27.0-31.2 pg Normal 06-04 [facility] ([place]) (0000 0) Comment: Performed By: #### BMP, ANEU , ADIFF, CBC, GFR, PRO ####[place] [address] Performed By: #### CBC, ADIF F, ANEU, PRO, BMP, GFR ####[place] [address] MCHC (RBC) [Mass/Vol] 32.6 31.8-35.4 G/dL Normal 06-04-20 [facility] ([place]) (0000 0) Comment: Performed By: #### BMP, ANEU , ADIFF, CBC, GFR, PRO ####[place] [id number] Performed By: #### CBC, ADIF F, ANEU, PRO, BMP, GFR ####[place] [address]4317 MCV (RBC) [Entitic vol] 95.7 80.0-94.0 fL High 2019 [facility] ([place]) (0000 0) Comment: Performed By: #### BMP, ANEU , ADIFF, CBC, GFR, PRO ####[place] [id number] Performed By: #### CBC, ADIF F, ANEU, PRO, BMP, GFR ####[place] [id number] Platelet mean volume 8.4 7.4-10.4 fL Normal 0 [facility] (d) [Entitic vol] ([place]) (61171) Comment: Performed By: #### BMP, ANEU , ADIFF, CBC, GFR, PRO ####[place] [address] [place], [place] [address] Performed By: #### CBC, ADIF F, ANEU, PRO, BMP, GFR ####[place] [address] [place], [place] [address] Platelets (Bld) [#/Vol] 117 130-400 10 3/mcL Low 2019 [facility] ([place]) (0000 0) Comment: Performed By: #### BMP, ANEU , ADIFF, CBC, GFR, PRO ####[place] [address] [place] [address] Performed By: #### CBC, ADIF F, ANEU, PRO, BMP, GFR ####[place] [address] [place] [address] RBC (Bld) [#/Vol] 2.56 4.04-6.13 10 6/mcL Low 06-04-2020 [facility] ([place]) (0000 0) Comment: Performed By: #### BMP, ANEU , ADIFF, CBC, GFR, PRO ####[place] [place], [place] [address] Performed By: #### CBC, ADIF F, ANEU, PRO, BMP, GFR ####[place] [address] [place] [address] WBC (Bld) [#/Vol] 7.10 4.60-10.80 10 3/mcL Normal 06-04-2020 [facility] ([place]) (78524) Comment: Performed By: #### BMP, ANEU , ADIFF, CBC, GFR, PRO ####[place] [address] [place] [id number] Performed By: #### CBC, ADIF F, ANEU, PRO, BMP, GFR ####[place] [address] [place] [address] bmp on 2020-06-04 Calcium [Mass/Vol] 8.6 8.4-10.2 mg/dL Normal 06-04-2020 [facility]) (0000 0) Comment: Performed By: #### BMP, ANEU , ADIFF, CBC, GFR, PRO ####[place] [address] [place], [place] [address] Performed By: #### CBC, ADIF F, ANEU, PRO, BMP, GFR ####[place] [address] [place], [place] [address] Chloride [Moles/Vol] 104 98-107 mmol/L Normal 0 [facility] ([place]) (0000 0) Comment: Performed By: #### BMP, ANEU , ADIFF, CBC, GFR, PRO ####[place] [address] [place], [place] [address] Performed By: #### CBC, ADIF F, ANEU, PRO, BMP, GFR ####[place] [address] [place], [place] [address] CO2 [Moles/Vol] 23 23-31 mmol/L Normal 06-04-2020 [facility] ([place]) ([address]) Comment: Performed By: #### BMP, ANEU , ADIFF, CBC, GFR, PRO ####[place] [address] [place], [place] [address] Performed By: #### CBC, ADIF F, ANEU, PRO, BMP, GFR ####[place] [address] [place], [place] [address] Creatinine [Mass/Vol] 0.93 0.70-1.30 mg/dL Normal 06-04-20 20 [facility] ([place]) (96676) Comment: Performed By: #### BMP, ANEU , ADIFF, CBC, GFR, PRO ####[place] [address] [place], [place] [address] Performed By: #### CBC, ADIF F, ANEU, PRO, BMP, GFR ####[place] [address] [place], [place] [address] Electrolyte Balance 12.0 mEq/L Normal 06-04-2020 [facility]) (94824) Comment: Performed By: #### BMP, ANEU , ADIFF, CBC, GFR, PRO ####[place] [address] [place], [place] [address] Performed By: #### CBC, ADIF F, ANEU, PRO, BMP, GFR ####[place] [address] [place], [place] [address] Glucose [Mass/Vol] 108 80-115 mg/dL Normal 06-04-2020 [facility] ([place]) (57964) Comment: Performed By: #### BMP, ANEU , ADIFF, CBC, GFR, PRO ####[place] [address] [place], [place] [address] Performed By: #### CBC, ADIF F, ANEU, PRO, BMP, GFR ####[place] [address] [place], [place] [address] Potassium [Moles/Vol] 3.4 3.5-5.1 mmol/L Low 06-04-20 [facility] ([place]) (0000 0) Comment: Performed By: #### BMP, ANEU , ADIFF, CBC, GFR, PRO ####[place] [address] [place], [place] [address] Performed By: #### CBC, ADIF F, ANEU, PRO, BMP, GFR ####[place] [address] [place], [place] [address] Sodium [Moles/Vol] 139 136-145 mmol/L Normal 06-04-2020 [facility] ([place]) (0000 0) Comment: Performed By: #### BMP, ANEU , ADIFF, CBC, GFR, PRO ####[place] [address] [place], [place] [address] Performed By: #### CBC, ADIF F, ANEU, PRO, BMP, GFR ####[place] [address] [place], [place] [address] Urea nitrogen [Mass/Vol] 12 7-18 mg/dL Normal 06-04 [facility] ([place]) (0000 0) Comment: Performed By: #### BMP, ANEU , ADIFF, CBC, GFR, PRO ####[facility] [place], [place] [address] Performed By: #### CBC, ADIF F, ANEU, PRO, BMP, GFR ####[place] [address] [place], [place] [address] Urea nitrogen/Creatinine [Mass 13 7-27 ratio Normal 06-04-2020 [facility]] [facility] ([place]) ([address]32) Comment: Performed By: #### BMP, ANEU , ADIFF, CBC, GFR, PRO ####[place] [address] [place], [place] [address] Performed By: #### CBC, ADIF F, ANEU, PRO, BMP, GFR ####[place] [address] [place], [place] [address] .neuabs on Neutrophils (Bld) 4.90 2.85-6.16 10 3/mcL Normal 06-04-2020 A [facility] [#/Vol] [facility] ([place]) (70495) Comment: Performed By: #### BMP, ANEU , ADIFF, CBC, GFR, PRO ####[place] [address] [place], [place] [address] Performed By: #### CBC, ADIF F, ANEU, PRO, BMP, GFR ####[place] [address] [place], [place] [address] .gfr on 2020-06-04 GFR Non- 82 ml/min/1.73sqm Normal 06-04-2020 [facility] ([place]) (31870) Comment: Result Comment: GFR Population mean for Afri can [place], Non- Americans Ages 20-29 = 116 mL/min/1.73 [...] , ADIFF, CBC, GFR, PRO ####[place] [address] [place], [place] [address] Performed By: #### CBC, ADIF F, ANEU, PRO, BMP, GFR ####[place] [address] [place], [place] [address] GFR 100 ml/min/1.73sqm Normal 05-14 [facility] ([place]) (0000 0) Comment: Result Comment: GFR Population mean for Afri can [place], Non- Americans Ages 20-29 = 116 mL/min/1.73 [...] , ADIFF, CBC, GFR, PRO ####[place] [place], [place] [address] Performed By: #### CBC, ADIF F, ANEU, PRO, BMP, GFR ####[place] [address] [place], [place] [address] .auto diff on 06-04 Ammonia (P) [Mass/Vol] 0.90 0.15-1.00 10 3/mcL Normal 020 [facility] ([place]) (92628) Comment: Performed By: #### BMP, ANEU , ADIFF, CBC, GFR, PRO ####[place] [place], [place] [address] Performed By: #### CBC, ADIF F, ANEU, PRO, BMP, GFR ####[place] [address] [place], [place] [address] Basophils (Bld) 0.10 0.00-0.19 10 3/mcL Normal 06-04-2020 [facility] [#/Vol] [facility] ([place]) (15099) Comment: Performed By: #### BMP, ANEU , ADIFF, CBC, GFR, PRO ####[place] [address] [place], [place] [address] Performed By: #### CBC, ADIF F, ANEU, PRO, BMP, GFR ####[place] [address] [place], [place] [address] Basophils/100 WBC (Bld) 0.7 0.0-2.5 % Normal 2019 [facility] ([place]) (0000 0) Comment: Performed By: #### BMP, ANEU , ADIFF, CBC, GFR, PRO ####[place] [address] [place], [place] [address] Performed By: #### CBC, ADIF F, ANEU, PRO, BMP, GFR ####[place] [address] [place], [place] [address] Eosinophils (Bld) 0.10 0.00-0.40 10 3/[facility] Normal 06-04-2020 [facility] [#/Vol] [facility] ([place]) (33968) Comment: Performed By: #### BMP, ANEU , ADIFF, CBC, GFR, PRO ####[place] [address] [place], [place] [address] Performed By: #### CBC, ADIF F, ANEU, PRO, BMP, GFR ####[place] [address] [place], [place] [address] Eosinophils/100 WBC (Bld) 0.9 0.0-7.0 % Normal 05-14 [facility] ([place]) (0000 0) Comment: Performed By: #### BMP, ANEU , ADIFF, CBC, GFR, PRO ####[place] [address] [place], [place] [address] Performed By: #### CBC, ADIF F, ANEU, PRO, BMP, GFR ####[place] [address] [place], [place] [address] Lymphocytes (Bld) 1.20 0.77-3.85 10 3/mcL Normal 06-04-2020 [facility] [#/Vol] [facility] ([place]) ([address]) Comment: Performed By: #### BMP, ANEU , ADIFF, CBC, GFR, PRO ####[place] [address] [place], [place] [address] Performed By: #### CBC, ADIF F, ANEU, PRO, BMP, GFR ####[place] [address] [place], [place] [address] Lymphocytes/100 WBC (Bld) 17.4 10.0-50.0 % Normal 05-14 [facility] ([place]) (56487) Comment: Performed By: #### BMP, ANEU , ADIFF, CBC, GFR, PRO ####[place] [address] [place], [place] [address] Performed By: #### CBC, ADIF F, ANEU, PRO, BMP, GFR ####[place] [address] [place], [place] [address] Monocytes/100 WBC (Bld) 12.5 1.7-13.0 % Normal 2019 [facility] ([place]) (0000 0) Comment: Performed By: #### BMP, ANEU , ADIFF, CBC, GFR, PRO ####[place] [address] [place], [place] [address] Performed By: #### CBC, ADIF F, ANEU, PRO, BMP, GFR ####[place] [address] [place], [place] [address] Neutrophils/100 WBC (Bld) 68.5 37.0-80.0 % Normal 05-14 [facility] ([place]) (72284) Comment: Performed By: #### BMP, ANEU , ADIFF, CBC, GFR, PRO ####[place] [address] [place], [place] [address] Performed By: #### CBC, ADIF F, ANEU, PRO, BMP, GFR ####[place] [address] [place], [place] [address] cnpn on 2020-06-03 CNPN Telephone (TXCTMN) Normal 06-03-2020 [facility] BECKY HUTCHISON ([id number]) 1955 [address] ORTIZ [facility] Time Provider Department ([id number]) 06/03/20 PARVIN PUENTE (RN) TXCTMN During your visit today, we recorded the following informati on about you: Parvin Puente RN, RN 06/03/2020 3:30 PM Signed [facility] Referral for Liver Transplant This is a [...] (HCC) - SARWAT (iron deficiency anemia) - [place], 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 - Thrombocytopenia (HCC) [...] Reason for Visit: Referral - Liver Txp [[id number]] Cmt: Intake Primary Visit Diagnosis:Encounter for screening for malignan t neoplasm of prostate [Z12.5] Other Visit Diagnoses:Tobacco use [Z72.0] Liver transplant candidate [Z76.82] DIXON (nonalcoholic steatohepatitis) [K75.81] Order(s):BLOOD TB SCREEN [SQINFTBP] Order #: [id number] FUTU RE LIVER REC INIT W/U [SQLRIPW] Order #: [id number]: 1 FUTUR E ACTIVATED PTT [SQPTT] Order #: [id number] FUTURE ALPHA FETOPROTEIN BL [SQAFP] Order #: [id number] FUTURE CBC + DIFF [SQCBCDIF] Order #: [id number] FUTURE CMV IGG ANTIBODY BL [SQCMVG] Order #: [id number] FUTURE EMILIE-ORTEZ VCA IGG [SQEBVG] Order #: [id number] FUTURE FERRITIN BLD [SQFERR] Order #: [id number] FUTURE HEP A AB TOTAL [SQAHAVT] Order #: [id number] FUTURE HEP REMOTE PANEL BL [SQHREMOP] Order #: [id number] FUTURE HIV 1 2 COMBO(AG/AB),WITH REFLEX TO DIFFERENTIATION [SQHIV12 ] Order #: [id number] FUTURE IRON + TIBC [SQIRON] Order #: [id number] FUTURE LIPID PANEL BASIC [SQLIPB] Order #: [id number] FUTURE PROTHROMBIN TIME/PT [SQPT] Order #: [id number] FUTURE ALPHA 1 ANTITRYPSIN PHENOTYPE [BZZ0WYTB] Order #: [id number] FUTURE VARICELLA ZOSTER IGG [SQVZVG] Order #: [id number] FUTURE TSH BLD [SQTSH] Order #: [id number] FUTURE SYPHILIS TOTAL W/REFLEX [SQSYPHTX] Order #: [id number] FUTUR E TOX SCREEN ROUT UR [SQUTOX2] Order #: [id number] FUTURE TOXICOLOGY PANEL BLD [SQTOXP] Order #: [id number] FUTURE TYPE + SCREEN [SQTSCR] Order #: [id number] FUTURE TRANSPLANT CONFIRM ABO/RH [SQTRCABO] Order #: [id number] FUT URE VITAMIN A/RETINOL [SQVITA] Order #: [id number] FUTURE VITAMIN D 25 HYDROXY [SQVITD] Order #: [id number] FUTURE RUBEOLA (MEASLES)IGG [SQMEASLG] Order #: [id number] FUTURE VITAMIN E/TOCOPHEROL [SQVITE] Order #: [id number] FUTURE BASIC METABOLIC PNL [SQBMP] Order #: [id number] FUTURE HEPATIC FUNCTION PNL [SQHFP] Order #: [id number] FUTURE CONSULT TO ANESTHESIOLOGY [820] Order #: [id number]: 1 F UTURE CONSULT TO HEPATOLOGY [2641733] Order #: [id number]: 1 FU TURE CONSULT TO INFECTIOUS DISEASES [0227] Order #: [id number] : 1 FUTURE CONSULT TO NUTRITION THERAPY [0168] Order #: [id number]: 1 FUTURE LIVER TRANSPLANT EVALUATION APPOINTMENT [5446891] Order #: [id number]: 1 FUTURE PSA/PROSTSPECAG SCRN [SQPSAS1] Order #: [id number] FUTURE CT CHEST WO IVCON [5665813] Order #: [id number] FUTURE CT LIVER W IVCON [2749345] Order #: [id number] FUTURE iv contrast (will be provided with [...] EachRfl: 0 CREATININE BLD [SQCRET] Order #: [id number] FUTURE ECHO [038148] Order #: [id number]: 1 FUTURE perflutren lipid microspheres (DEFINITY) 1.1 [...] mLRfl: 0 ECG COMPLETE [ECG01] Order #: [id number] FUTURE SPIROMETRY BASELINE ONLY [7569864] Order #: [id number] FUTUR E CONSULT TO CARDIOLOGY [268] Order #: [id number]: 1 FUTUR E CONSULT TO DERMATOLOGY [] Order #: [id number]: 1 FUTU RE CONSULT TO ENT [900] Order #: [id number]: 1 FUTURE CONSULT TO PULMONARY MEDICINE [7184628] Order #: [id number] ty: 1 FUTURE LIVER TRANSPLANT EVALUATION APPOINTMENT [6676604] Order #: [id number]: 1 Prescriptions as of 06/03/2020 Sig: IV [...] on 06/03/20 CNPN Telephone (TXCTMN) Normal 06-03-2020 [facility] BECKY HUTCHISON ([id number]) 1955 [facility] Date Time Provider Department ([id number]) 06/03/20 PARVIN PUENTE (RN) TXCTMN During your [...] Reason for Visit: Referral - Liver Txp [[id number]] Cmt: Intake - LM Problem List As Of Date: 06/03/2020 (None) Encounter Status:Closed by PARVIN PUENTE on 06/03/20 mg on 2020-05-28 Magnesium [Mass/Vol] 1.9 1.8-2.4 mg/dL Normal 0 [facility] ([place]) (0000 0) Comment: Performed By: #### BMP, MG, GFR, ANEU, ADIFF, CBC ####[place] [address] [place], [place] [address] Performed By: #### CBC, ADIF F, ANEU, BMP, MG, GFR ####[place] [address] [place] [address] cbc on 2020-05-28 Erythrocyte distribution 22.1 11.5-14.5 % High 05-28 [facility] width (RBC) [Ratio] ([place]) (33569) Comment: Performed By: #### BMP, MG, GFR, ANEU, ADIFF, CBC ####[place] [address] [place] [address] Performed By: #### CBC, ADIF F, ANEU, BMP, MG, GFR ####[place] [address] [place], [place] [address] Hematocrit (Bld) [Volume 24.0 42.0-52.0 % Low 05-28 [facility] fraction] ([place]) (0000 0) Comment: Performed By: #### BMP, MG, GFR, ANEU, ADIFF, CBC ####[place] [address] [place], [place] [address] Performed By: #### CBC, ADIF F, ANEU, BMP, MG, GFR ####[place] [address] [place], [place] [address] Hemoglobin (Bld) 7.9 14.0-18.0 G/dL Low 05-28-2020 [facility] [Mass/Vol] ([place]) (000 00) Comment: Performed By: #### BMP, MG, GFR, ANEU, ADIFF, CBC ####[place] [address] [place] [id number] Performed By: #### CBC, ADIF F, ANEU, BMP, MG, GFR ####[place] [address] [place] [id number] MCH (RBC) [Entitic mass] 31.3 27.0-31.2 pg High 05-28 [facility] ([place]) (0000 0) Comment: Performed By: #### BMP, MG, GFR, ANEU, ADIFF, CBC ####[place] [address] [place], [place] [address] Performed By: #### CBC, ADIF F, ANEU, BMP, MG, GFR ####[place] [address] [place] [address] MCHC (RBC) [Mass/Vol] 32.9 31.8-35.4 G/dL Normal 05-28-20 20 [facility] ([place]) (0000 0) Comment: Performed By: #### BMP, MG, GFR, ANEU, ADIFF, CBC ####[place] [address] [id number] Performed By: #### CBC, ADIF F, ANEU, BMP, MG, GFR ####[facility]832 [place] [address] MCV (RBC) [Entitic vol] 95.2 80.0-94.0 fL High 2019 [facility] ([place]) (0000 0) Comment: Performed By: #### BMP, MG, GFR, ANEU, ADIFF, CBC ####[place] [id number] Performed By: #### CBC, ADIF F, ANEU, BMP, MG, GFR ####[place] [address] [place] [id number] Platelet mean volume 8.0 7.4-10.4 fL Normal 0 [facility] (Bld) [Entitic vol] ([place]) (67141) Comment: Performed By: #### BMP, MG, GFR, ANEU, ADIFF, CBC ####[place] [address] [address] Performed By: #### CBC, ADIF F, ANEU, BMP, MG, GFR ####[place] [address] [place], [place] [address] Platelets (Bld) [#/Vol] 82 130-400 10 3/mcL Low 2019 [facility] ([place]) (0000 0) Comment: Performed By: #### BMP, MG, GFR, ANEU, ADIFF, CBC ####[place] [address] [place], [place] [address] Performed By: #### CBC, ADIF F, ANEU, BMP, MG, GFR ####[place] [address] [place], [place] [address] RBC (Bld) [#/Vol] 2.52 4.04-6.13 10 6/mcL Low 05-28-2020 [facility] ([place]) (0000 0) Comment: Performed By: #### BMP, MG, GFR, ANEU, ADIFF, CBC ####[place] [address] [place], [place] [address] Performed By: #### CBC, ADIF F, ANEU, BMP, MG, GFR ####[place] [address] [place], [place] [address] WBC (Bld) [#/Vol] 4.60 4.60-10.80 10 3/mcL Normal 05-28-2020 [facility] ([place]) (49820) Comment: Performed By: #### BMP, MG, GFR, ANEU, ADIFF, CBC ####[place] [address] [place], [place] [address] Performed By: #### CBC, ADIF F, ANEU, BMP, MG, GFR ####[place] [address] [place], [place] [address] bmp on 2020-05-28 Calcium [Mass/Vol] 8.0 8.4-10.2 mg/dL Low 05-28-2020 [facility] ([place]) (97917) Comment: Performed By: #### BMP, MG, GFR, ANEU, ADIFF, CBC ####[place] [address] [place], [place] [address] Performed By: #### CBC, ADIF F, ANEU, BMP, MG, GFR ####[place] [address] [place], [place] [address] Chloride [Moles/Vol] 103 98-107 mmol/L Normal 0 [facility] ([place]) (0000 0) Comment: Performed By: #### BMP, MG, GFR, ANEU, ADIFF, CBC ####[place] [address] [place], [place] [address] Performed By: #### CBC, ADIF F, ANEU, BMP, MG, GFR ####[place] [address] [place] [id number] CO2 [Moles/Vol] 25 23-31 mmol/L Normal 05-28-2020 [facility]) (20733) Comment: Performed By: #### BMP, MG, GFR, ANEU, ADIFF, CBC ####[place] [address] [place] [address] Performed By: #### CBC, ADIF F, ANEU, BMP, MG, GFR ####[place] [address] [place] [id number] Creatinine [Mass/Vol] 0.94 0.70-1.30 mg/dL Normal 05-28-20 20 [facility] ([place]) (85804) Comment: Performed By: #### BMP, MG, GFR, ANEU, ADIFF, CBC ####[place] [address] [place] [address] Performed By: #### CBC, ADIF F, ANEU, BMP, MG, GFR ####[place] [address] [place] [id number] Electrolyte Balance 8.0 mEq/L Normal 05-28-2020 [facility] ([place]) (84711) Comment: Performed By: #### BMP, MG, GFR, ANEU, ADIFF, CBC ####[place] [address] [place] [id number] Performed By: #### CBC, ADIF F, ANEU, BMP, MG, GFR ####[place] [address] [place], [place] [address] Glucose [Mass/Vol] 147 80-115 mg/dL High 05-28-2020 [facility] ([place]) (79578) Comment: Performed By: #### BMP, MG, GFR, ANEU, ADIFF, CBC ####[place] [address] [place], [place] [address] Performed By: #### CBC, ADIF F, ANEU, BMP, MG, GFR ####[place] [address] [place], [place] [address] Potassium [Moles/Vol] 3.1 3.5-5.1 mmol/L Low 05-28-20 [facility] ([place]) (0000 0) Comment: Performed By: #### BMP, MG, GFR, ANEU, ADIFF, CBC ####[place] [address] [place], [place] [address] Performed By: #### CBC, ADIF F, ANEU, BMP, MG, GFR ####[place] [address] [place], [place] [address] Sodium [Moles/Vol] 136 136-145 mmol/L Normal 05-28-2020 [facility] ([place]) (0000 0) Comment: Performed By: #### BMP, MG, GFR, ANEU, ADIFF, CBC ####[place] [address] [place], [place] [address] Performed By: #### CBC, ADIF F, ANEU, BMP, MG, GFR ####[place] [address] [place], [place] [address] Urea nitrogen [Mass/Vol] 11 7-18 mg/dL Normal 05-28 [facility] ([place]) (0000 0) Comment: Performed By: #### BMP, MG, GFR, ANEU, ADIFF, CBC ####[place] [address] [place], [place] [address] Performed By: #### CBC, ADIF F, ANEU, BMP, MG, GFR ####[place] [address] [place], [place] [address] Urea nitrogen/Creatinine [Mass 12 7-27 ratio Normal 05-28-2020 [facility]] [facility] ([place]) ([address]) Comment: Performed By: #### BMP, MG, GFR, ANEU, ADIFF, CBC ####[place] [address] [place], [place] [address] Performed By: #### CBC, ADIF F, ANEU, BMP, MG, GFR ####[place] [address] [place], [place] [address] .neuabs on Neutrophils (Bld) 2.80 2.85-6.16 10 3/mcL Low 05-28-2020 [facility] [#/Vol] [facility] ([place]) (27734) Comment: Performed By: #### BMP, MG, GFR, ANEU, ADIFF, CBC ####[place] [address] [place], [place] [address] Performed By: #### CBC, ADIF F, ANEU, BMP, MG, GFR ####[place] [address] [place], [place] [address] .gfr on 2020-05-28 GFR Non- 81 ml/min/1.73sqm Normal 05-28-2020 [facility] ([place]) (80076) Comment: Result Comment: GFR Population mean for Afri can [place], Non- Americans Ages 20-29 = 116 mL/min/1.73 [...] BMP, MG, GFR, ANEU, ADIFF, CBC ####[place] [address] [place], [place] [address] Performed By: #### CBC, ADIF F, ANEU, BMP, MG, GFR ####[place] [address] [place], [place] [address] GFR 99 ml/min/1.73sqm Normal 09- [facility] ([place]) (0000 0) Comment: Result Comment: GFR Population mean for Afri can [place], Non- Americans Ages 20-29 = 116 mL/min/1.73 [...] #### BMP, MG, GFR, ANEU, ADIFF, CBC ####[place] [address] [place] [address] Performed By: #### CBC, ADIF F, ANEU, BMP, MG, GFR ####[place] [address] [place], [place] [address] .auto diff on 05-28 Ammonia (P) [Mass/Vol] 0.80 0.15-1.00 10 3/mcL Normal 020 [facility] ([place]) (15646) Comment: Performed By: #### BMP, MG, GFR, ANEU, ADIFF, CBC ####[place] [address] [place], [place] [address] Performed By: #### CBC, ADIF F, ANEU, BMP, MG, GFR ####[place] [address] [place], [place] [address] Basophils (Bld) 0.00 0.00-0.19 10 3/mcL Normal 05-28-2020 [facility] [#/Vol] [facility] ([place]) ([address]) Comment: Performed By: #### BMP, MG, GFR, ANEU, ADIFF, CBC ####[place] [address] [place], [place] [address] Performed By: #### CBC, ADIF F, ANEU, BMP, MG, GFR ####[address] [place], [place] [address] Basophils/100 WBC (Bld) 0.9 0.0-2.5 % Normal 2019 [facility] ([place]) (0000 0) Comment: Performed By: #### BMP, MG, GFR, ANEU, ADIFF, CBC ####[address] [place], [place] [address] Performed By: #### CBC, ADIF F, ANEU, BMP, MG, GFR ####[place] [place], [place] [address] Eosinophils (Bld) 0.10 0.00-0.40 10 3/mcL Normal 05-28-2020 [facility] [#/Vol] [facility] ([place]) ([id number]) Comment: Performed By: #### BMP, MG, GFR, ANEU, ADIFF, CBC ####[address] [place], [place] [address] Performed By: #### CBC, ADIF F, ANEU, BMP, MG, GFR ####[address] [place], [place] [address] Eosinophils/100 WBC (Bld) 1.7 0.0-7.0 % Normal 05-13 [facility] ([place]) (0000 0) Comment: Performed By: #### BMP, MG, GFR, ANEU, ADIFF, CBC ####[address] [place], [place] [address] Performed By: #### CBC, ADIF F, ANEU, BMP, MG, GFR ####[address] [place], [place] [address] Lymphocytes (Bld) 0.90 0.77-3.85 10 3/mcL Normal 05-28-2020 [facility] [#/Vol] [facility] ([place]) ([id number]) Comment: Performed By: #### BMP, MG, GFR, ANEU, ADIFF, CBC ####[address] [place], [place] [address] Performed By: #### CBC, ADIF F, ANEU, BMP, MG, GFR ####[address] [place], [place] [address] Lymphocytes/100 WBC (Bld) 19.0 10.0-50.0 % Normal 05-13 [facility] ([place]) ([id number]) Comment: Performed By: #### BMP, MG, GFR, ANEU, ADIFF, CBC ####[facility] [place], [place] [address] Performed By: #### CBC, ADIF F, ANEU, BMP, MG, GFR ####[address] [address] Monocytes/100 WBC (Bld) 16.6 1.7-13.0 % High 2019 [facility] ([place]) (0000 0) Comment: Performed By: #### BMP, MG, GFR, ANEU, ADIFF, CBC ####[place] [id number] [place], [place] [address] Performed By: #### CBC, ADIF F, ANEU, BMP, MG, GFR ####[address] [address] Neutrophils/100 WBC (Bld) 61.8 37.0-80.0 % Normal 05-13 [facility] ([place]) ([id number]) Comment: Performed By: #### BMP, MG, GFR, ANEU, ADIFF, CBC ####[facility] [place], [place] [address] Performed By: #### CBC, ADIF F, ANEU, BMP, MG, GFR ####[address] [address] mg on 2020-05-16 Magnesium [Mass/Vol] 2.0 1.8-2.4 mg/dL Normal 0 [facility] ([place]) (0000 0) Comment: Performed By: #### CBC, ADIF F, ANEU #### [address] [address] #### CMP, GFR #### [place] [address] cbc on 2020-05-16 Erythrocyte distribution 21.7 11.5-14.5 % High 05-16 [facility] width (RBC) [Ratio] ([place]) ([address]) Comment: Performed By: #### CBC, ADIF F, ANEU #### [address] [address] #### CMP, GFR #### [address] [address] Hematocrit (Bld) [Volume 24.7 42.0-52.0 % Low 05-16 [facility] fraction] ([place]) (0000 0) Comment: Performed By: #### CBC, ADIF F, ANEU #### [address] [address] #### CMP, GFR #### [address] [address] Hemoglobin (Bld) 8.2 14.0-18.0 G/dL Low 05-16-2020 [facility] [Mass/Vol] ([place]) (000 00) Comment: Performed By: #### CBC, ADIF F, ANEU #### [address] [address] #### CMP, GFR #### [address] [address] MCH (RBC) [Entitic mass] 32.1 27.0-31.2 pg High 05-16 [facility] ([place]) (0000 0) Comment: Performed By: #### CBC, ADIF F, ANEU #### [place] [address] #### CMP, GFR #### [address] [address] MCHC (RBC) [Mass/Vol] 33.1 31.8-35.4 G/dL Normal 05-16-20 [facility] ([place]) (0000 0) Comment: Performed By: #### CBC, ADIF F, ANEU #### [place] [address] #### CMP, GFR #### [address] [address] MCV (RBC) [Entitic vol] 97.3 80.0-94.0 fL High 2019 [facility] ([place]) (0000 0) Comment: Performed By: #### CBC, ADIF F, ANEU #### [address] [address] #### CMP, GFR #### [address] [address] Platelet mean volume 8.2 7.4-10.4 fL Normal 0 [facility] (Bld) [Entitic vol] ([place]) (88331) Comment: Performed By: #### CBC, ADIF F, ANEU #### [place] [address] #### CMP, GFR #### [place] [address] Platelets (Bld) [#/Vol] 93 130-400 10 3/mcL Low 2019 [facility] ([place] (0000 0) Comment: Performed By: #### CBC, ADIF F, ANEU #### [place] [address] #### CMP, GFR #### [place] [address] RBC (Bld) [#/Vol] 2.54 4.04-6.13 10 6/mcL Low 2020 A [facility] ([place]) (0000 0) Comment: Performed By: #### CBC, ADIF F, ANEU #### [place] [address] #### CMP, GFR #### [address] [address] WBC (Bld) [#/Vol] 5.90 4.60-10.80 10 3/mcL Normal 05-16-2020 [facility] ([place]) (77411) Comment: Performed By: #### CBC, ADIF F, ANEU #### [place] [address] #### CMP, GFR #### [address] [address] bmp on 2020-05-16 Calcium [Mass/Vol] 7.8 8.4-10.2 mg/dL Low 05-16-2020 [facility] ([place] (36402) Comment: Performed By: #### CBC, ADIF F, ANEU #### [address] [address] #### CMP, GFR #### [address] [address] Chloride [Moles/Vol] 105 98-107 mmol/L Normal 0 [facility] ([place] (0000 0) Comment: Performed By: #### CBC, ADIF F, ANEU #### [address] [address] #### CMP, GFR #### [address] [address] CO2 [Moles/Vol] 24 23-31 mmol/L Normal 05-16-2020 [facility] [place]) (32524) Comment: Performed By: #### CBC, ADIF F, ANEU #### [address] [address] #### CMP, GFR #### [address] [address] Creatinine [Mass/Vol] 1.00 0.70-1.30 mg/dL Normal 05-16-20 20 [facility] ([place] (73385) Comment: Performed By: #### CBC, ADIF F, ANEU #### [address] [address] #### CMP, GFR #### [address] [address] Electrolyte Balance 10.0 mEq/L Normal 05-16-2020 [facility] ([place] (43943) Comment: Performed By: #### CBC, ADIF F, ANEU #### [address] [address] #### CMP, GFR #### [address] [address] Glucose [Mass/Vol] 142 80-115 mg/dL High 05-16-2020 [facility] ([place] (55186) Comment: Performed By: #### CBC, ADIF F, ANEU #### [address] [address] #### CMP, GFR #### [address] [address] Potassium [Moles/Vol] 3.6 3.5-5.1 mmol/L Normal 05-16-20 [facility] ([place] (0000 0) Comment: Performed By: #### CBC, ADIF F, ANEU #### [address] [address] #### CMP, GFR #### [address] [address] Sodium [Moles/Vol] 139 136-145 mmol/L Normal 05-16-2020 [facility] ([place] (0000 0) Comment: Performed By: #### CBC, ADIF F, ANEU #### [address] [address] #### CMP, GFR #### [address] [address] Urea nitrogen [Mass/Vol] 12 7-18 mg/dL Normal 05-16 [facility] ([place] (0000 0) Comment: Performed By: #### CBC, ADIF F, ANEU #### [place] [id number] #### CMP, GFR #### [address] [address] Urea nitrogen/Creatinine [Mass 12 7-27 ratio Normal 05-16-2020 [facility]] [facility] ([place]) (22039) Comment: Performed By: #### CBC, ADIF F, ANEU #### [address] [address] #### CMP, GFR #### [address] [address] .neuabs on Neutrophils (Bld) 4.00 2.85-6.16 10 3/mcL Normal 05-16-2020 [facility] [#/Vol] [facility] ([place]) (82858) Comment: Performed By: #### ANEU, KETTY FF, CBC, GFR, MG, BMP ####[address] [place], [place] [address] Performed By: #### BMP, MG, GFR, CBC, ADIFF, ANEU ####[address] [place], [place] [address] .gfr on 2020-05-16 GFR 92 ml/min/1.73sqm Normal [facility] ([place] (0000 0) Comment: Result Comment: GFR Population mean for Afri can [place], Non- Americans Ages 20-29 = 116 mL/min/1.73 [...] #### CBC, ADIF F, ANEU #### [address] [place], [place] [address] #### CMP, GFR #### [place] [address] GFR Non- 76 ml/min/1.73sqm Normal 05-16-2020 [facility] ([place] (95714) Comment: Result Comment: GFR Population mean for Afri can [place], Non- Americans Ages 20-29 = 116 mL/min/1.73 [...] By: #### CBC, ADIF F, ANEU #### [address] [address] #### CMP, GFR #### [address] [address] .auto diff on 05-16 Ammonia (P) [Mass/Vol] 0.80 0.15-1.00 10 3/mcL Normal 020 [facility] ([place]) (99006) Comment: Performed By: #### CBC, ADIF F, ANEU #### [place] [address] #### CMP, GFR #### [place] [address] Basophils (Bld) 0.00 0.00-0.19 10 3/mcL Normal 05-16-2020 [facility] [#/Vol] [facility] ([place]) (98827) Comment: Performed By: #### CBC, ADIF F, ANEU #### [address] [address] #### CMP, GFR #### [address] [address] Basophils/100 WBC (Bld) 0.6 0.0-2.5 % Normal 2019 [facility] ([place] (0000 0) Comment: Performed By: #### CBC, ADIF F, ANEU #### [place] [address] #### CMP, GFR #### [address] [address] Eosinophils (Bld) 0.10 0.00-0.40 10 3/mcL Normal 05-16-2020 [facility] [#/Vol] [facility] ([place]) (51776) Comment: Performed By: #### CBC, ADIF F, ANEU #### [address] [address] #### CMP, GFR #### [address] [address] Eosinophils/100 WBC (Bld) 1.1 0.0-7.0 % Normal 09-0 [facility] ([place]) (0000 0) Comment: Performed By: #### CBC, ADIF F, ANEU #### [place] [address] #### CMP, GFR #### [address] [address] Lymphocytes (Bld) 0.90 0.77-3.85 10 3/mcL Normal 05-16-2020 [facility] [#/Vol] [facility] ([place]) (30737) Comment: Performed By: #### CBC, ADIF F, ANEU #### [place] [address] #### CMP, GFR #### [address] [address] Lymphocytes/100 WBC (Bld) 15.9 10.0-50.0 % Normal 090 [facility] ([place]) (25883) Comment: Performed By: #### CBC, ADIF F, ANEU #### [place] [address] #### CMP, GFR #### [address] [address] Monocytes/100 WBC (Bld) 14.0 1.7-13.0 % High 2019 [facility] ([place] (0000 0) Comment: Performed By: #### CBC, ADIF F, ANEU #### [place] [address] #### CMP, GFR #### [address] [address] Neutrophils/100 WBC (Bld) 68.4 37.0-80.0 % Normal 09-0 [facility] ([place]) (09772) Comment: Performed By: #### CBC, ADIF F, ANEU #### [address] [address] #### CMP, GFR #### [address] [address] ferr on 2020-05-05 Ferritin [Mass/Vol] 110.1 26.0-388.0 ng/mL Normal 0 [facility] ([place]) (43415) Comment: Performed By: #### CBC, ADIF F, ANEU #### [address] [address] #### CMP, GFR #### [address] [address] fe on 2020-05-05 Iron [Mass/Vol] 205 65-175 mcg/dL High 05-05-2020 [facility] ([place]) (61932) Comment: Performed By: #### CBC, ADIF F, ANEU #### [place] [address] #### CMP, GFR #### [address] [address] mg on 2020-05-02 Magnesium [Mass/Vol] 1.9 1.8-2.4 mg/dL Normal 0 [facility] ([place]) (0000 0) Comment: Performed By: #### CBC, ADIF F, ANEU #### [place] [address] #### CMP, GFR #### [address] [address] cbc on 2020-05-02 Erythrocyte distribution 20.7 11.5-14.5 % High 05-02 [facility] width (RBC) [Ratio] ([place]) (18040) Comment: Performed By: #### CBC, ADIF F, ANEU #### [address] [address] #### CMP, GFR #### [address] [address] Hematocrit (Bld) [Volume 25.3 42.0-52.0 % Low 05-02 [facility] fraction] ([place]) (0000 0) Comment: Performed By: #### CBC, ADIF F, ANEU #### [address] [address] #### CMP, GFR #### [address] [address] Hemoglobin (Bld) 8.4 14.0-18.0 G/dL Low 05-02-2020 [facility] [Mass/Vol] ([place]) (000 00) Comment: Performed By: #### CBC, ADIF F, ANEU #### [place] [address] #### CMP, GFR #### [address] [address] MCH (RBC) [Entitic mass] 32.8 27.0-31.2 pg High 05-02 [facility] ([place]) (0000 0) Comment: Performed By: #### CBC, ADIF F, ANEU #### [place] [address] #### CMP, GFR #### [address] [address] MCHC (RBC) [Mass/Vol] 33.3 31.8-35.4 G/dL Normal 05-02-20 20 [facility] ([place]) (0000 0) Comment: Performed By: #### CBC, ADIF F, ANEU #### [place] [address] #### CMP, GFR #### [address] [address] MCV (RBC) [Entitic vol] 98.6 80.0-94.0 fL High 2019 [facility] ([place]) (0000 0) Comment: Performed By: #### CBC, ADIF F, ANEU #### [place] [address] #### CMP, GFR #### [address] [address] Platelet mean volume 8.3 7.4-10.4 fL Normal 0 [facility] (Bld) [Entitic vol] ([place]) (54639) Comment: Performed By: #### CBC, ADIF F, ANEU #### [address] [address] #### CMP, GFR #### [address] [address] Platelets (Bld) [#/Vol] 71 130-400 10 3/mcL Low 2019 [facility] ([place]) (0000 0) Comment: Performed By: #### CBC, ADIF F, ANEU #### [place] [address] #### CMP, GFR #### [address] [address] RBC (Bld) [#/Vol] 2.57 4.04-6.13 10 6/mcL Low 05-02-2020 A [facility] ([place]) (0000 0) Comment: Performed By: #### CBC, ADIF F, ANEU #### [place] [address] #### CMP, GFR #### [address] [address] WBC (Bld) [#/Vol] 4.20 4.60-10.80 10 3/mcL Low 05-02-2020 [facility] ([place]) (0000 0) Comment: Performed By: #### CBC, ADIF F, ANEU #### [place] [address] #### CMP, GFR #### [address] [address] bmp on 2020-05-02 Calcium [Mass/Vol] 8.0 8.4-10.2 mg/dL Low 05-02-2020 [facility] ([place]) (33449) Comment: Performed By: #### CBC, ADIF F, ANEU #### [place] [address] #### CMP, GFR #### [address] [address] Chloride [Moles/Vol] 106 98-107 mmol/L Normal 0 [facility] ([place] (0000 0) Comment: Performed By: #### CBC, ADIF F, ANEU #### [address] [address] #### CMP, GFR #### [address] [address] CO2 [Moles/Vol] 23 23-31 mmol/L Normal 05-02-2020 [facility] [place] (15617) Comment: Performed By: #### CBC, ADIF F, ANEU #### [address] [address] #### CMP, GFR #### [address] [address] Creatinine [Mass/Vol] 1.03 0.70-1.30 mg/dL Normal 05-02-20 20 [facility] ([place] (65714) Comment: Performed By: #### CBC, ADIF F, ANEU #### [address] [address] #### CMP, GFR #### [address] [address] Electrolyte Balance 9.0 mEq/L Normal 05-02-2020 [facility] ([place]) (45498) Comment: Performed By: #### CBC, ADIF F, ANEU #### [address] [address] #### CMP, GFR #### [address] [address] Glucose [Mass/Vol] 191 80-115 mg/dL High 05-02-2020 [facility] ([place]) (10446) Comment: Performed By: #### CBC, ADIF F, ANEU #### [address] [address] #### CMP, GFR #### [address] [address] Potassium [Moles/Vol] 4.1 3.5-5.1 mmol/L Normal 05-02-20 [facility] ([place] (0000 0) Comment: Performed By: #### CBC, ADIF F, ANEU #### [address] [address] #### CMP, GFR #### [address] [address] Sodium [Moles/Vol] 138 136-145 mmol/L Normal 05-02-2020 [facility] ([place] (0000 0) Comment: Performed By: #### CBC, ADIF F, ANEU #### [address] [address] #### CMP, GFR #### [address] [address] Urea nitrogen [Mass/Vol] 12 7-18 mg/dL Normal 05-02 [facility] ([place] (0000 0) Comment: Performed By: #### CBC, ADIF F, ANEU #### [address] [address] #### CMP, GFR #### [address] [address] Urea nitrogen/Creatinine [Mass 12 7-27 ratio Normal 05-02-2020 [facility]] [facility] ([place]) (98139) Comment: Performed By: #### CBC, ADIF F, ANEU #### [place] [address] #### CMP, GFR #### [address] [address] .neuabs on Neutrophils (Bld) 2.60 2.85-6.16 10 3/mcL Low 05-02-2020 [facility] [#/Vol] [facility] ([place]) (22344) Comment: Performed By: #### CBC, ADIF F, ANEU #### [address] [address] #### CMP, GFR #### [address] [address] .gfr on 2020-05-02 GFR 89 ml/min/1.73sqm Normal 04-13 [facility] ([place]) (0000 0) Comment: Result Comment: GFR Population mean for Afri can [place], Non- Americans Ages 20-29 = 116 mL/min/1.73 [...] By: #### CBC, ADIF F, ANEU #### [address] [address] #### CMP, GFR #### [address] [address] GFR Non- 73 ml/min/1.73sqm Normal 05-02-2020 [facility] ([place]) (31658) Comment: Result Comment: GFR Population mean for Afri can [place], Non- Americans Ages 20-29 = 116 mL/min/1.73 [...] By: #### CBC, ADIF F, ANEU #### [address] [address] #### CMP, GFR #### [address] [address] .auto diff on 05-02 Ammonia (P) [Mass/Vol] 0.70 0.15-1.00 10 3/mcL Normal 020 [facility] ([place]) (57692) Comment: Performed By: #### CBC, ADIF F, ANEU #### [address] [address] #### CMP, GFR #### [address] [address] Basophils (Bld) 0.00 0.00-0.19 10 3/mcL Normal 05-02-2020 [facility] [#/Vol] [facility] ([place]) (86672) Comment: Performed By: #### CBC, ADIF F, ANEU #### [place] [address] #### CMP, GFR #### [address] [address] Basophils/100 WBC (Bld) 0.7 0.0-2.5 % Normal 2019 [facility] ([place] (0000 0) Comment: Performed By: #### CBC, ADIF F, ANEU #### [place] [address] #### CMP, GFR #### [address] [address] Eosinophils (Bld) 0.00 0.00-0.40 10 3/[facility] Normal 05-02-2020 [facility] [#/Vol] [facility] ([place]) (79647) Comment: Performed By: #### CBC, ADIF F, ANEU #### [place] [address] #### CMP, GFR #### [address] [address] Eosinophils/100 WBC (Bld) 1.0 0.0-7.0 % Normal 04-13 [facility] ([place]) (0000 0) Comment: Performed By: #### CBC, ADIF F, ANEU #### [place] [address] #### CMP, GFR #### [address] [address] Lymphocytes (Bld) 0.80 0.77-3.85 10 3/mcL Normal 05-02-2020 [facility] [#/Vol] [facility] ([place]) (04600) Comment: Performed By: #### CBC, ADIF F, ANEU #### [place] [address] #### CMP, GFR #### [address] [address] Lymphocytes/100 WBC (Bld) 19.2 10.0-50.0 % Normal 04-13 [facility] ([place]) (17657) Comment: Performed By: #### CBC, ADIF F, ANEU #### [address] [address] #### CMP, GFR #### [address] [address] Monocytes/100 WBC (Bld) 16.7 1.7-13.0 % High 2019 [facility] ([place] (0000 0) Comment: Performed By: #### CBC, ADIF F, ANEU #### [place] [address] #### CMP, GFR #### [address] [address] Neutrophils/100 WBC (Bld) 62.4 37.0-80.0 % Normal 04-13 [facility] ([place]) (06603) Comment: Performed By: #### CBC, ADIF F, ANEU #### [place] [address] #### CMP, GFR #### [address] [address] cnpn on 2020-04-30 CNPN Telephone (TXCTMN) Normal 04-30-2020 [facility] BECKY HUTCHISON ([id number]) 1955 [facility] Time Provider Department ([id number]) 04/30/20 LIVER TXP COORDINATOR TXCTMN During your visit today, we recorded the following informati on about you: Chery Villasenor 04/30/2020 1:50 PM Signed Liver Transplant Referral Becky Hutchison [phone] email address: [email or web address] Diagnosis: DIXON Date of diagnosis: 12/2017 MELD [...] she call and at what phone number? [phone] Please be aware that the call will [...] Reason for Visit: Referral - Liver Txp [[id number]] Primary Visit Diagnosis:Nonalcoholic steatohepatitis [K75.81 ] Order(s):CONSULT TO [facility]PLANT [facility]ENTER [710333] Order #: [id number]: 1 Problem List As Of Date: 04/30/2020 (None) Encounter Status:Closed by CHERY JOHNSON on 04/30/20 mg on 2020-04-21 Magnesium [Mass/Vol] 1.9 1.8-2.4 mg/dL Normal 0 [facility] ([place]) (0000 0) Comment: Performed By: #### CBC, ADIF F, ANEU #### [place] [address] #### CMP, GFR #### [address] [address] cbc on 2020-04-21 Erythrocyte distribution 20.8 11.5-14.5 % High 04-21 [facility] width (RBC) [Ratio] ([place]) (36607) Comment: Performed By: #### CBC, ADIF F, ANEU #### [place] [address] #### CMP, GFR #### [address] [address] Hematocrit (Bld) [Volume 25.4 42.0-52.0 % Low 04-21 [facility] fraction] ([place]) (0000 0) Comment: Performed By: #### CBC, ADIF F, ANEU #### [place] [address] #### CMP, GFR #### [place] [address] Hemoglobin (Bld) 8.6 14.0-18.0 G/dL Low 04-21-2020 [facility] [Mass/Vol] ([place]) (000 00) Comment: Performed By: #### CBC, ADIF F, ANEU #### [place] [address] #### CMP, GFR #### [address] [address] MCH (RBC) [Entitic mass] 33.5 27.0-31.2 pg High 04-21 [facility] ([place]) (0000 0) Comment: Performed By: #### CBC, ADIF F, ANEU #### [place] [address] #### CMP, GFR #### [place] [id number] MCHC (RBC) [Mass/Vol] 33.9 31.8-35.4 G/dL Normal 04-21-20 20 [facility] ([place]) (0000 0) Comment: Performed By: #### CBC, ADIF F, ANEU #### [place] [address] #### CMP, GFR #### [address] [address] MCV (RBC) [Entitic vol] 99.0 80.0-94.0 fL High 2019 [facility] ([place]) (0000 0) Comment: Performed By: #### CBC, ADIF F, ANEU #### [place] [address] #### CMP, GFR #### [address] [address] Platelet mean volume 8.4 7.4-10.4 fL Normal 0 [facility] (Bld) [Entitic vol] ([place]) (66669) Comment: Performed By: #### CBC, ADIF F, ANEU #### [place] [address] #### CMP, GFR #### [address] [address] Platelets (Bld) [#/Vol] 66 130-400 10 3/mcL Low 2019 [facility] ([place]) (0000 0) Comment: Performed By: #### CBC, ADIF F, ANEU #### [place] [address] #### CMP, GFR #### [address] [address] RBC (Bld) [#/Vol] 2.57 4.04-6.13 10 6/mcL Low 04-21-2020 A [facility] ([place]) (0000 0) Comment: Performed By: #### CBC, ADIF F, ANEU #### [place] [address] #### CMP, GFR #### [address] [address] WBC (Bld) [#/Vol] 4.80 4.60-10.80 10 3/mcL Normal 04-21-2020 [facility] ([place]) (34618) Comment: Performed By: #### CBC, ADIF F, ANEU #### [address] [address] #### CMP, GFR #### [address] [address] bmp on 2020-04-21 Calcium [Mass/Vol] 8.2 8.4-10.2 mg/dL Low 04-21-2020 [facility] ([place]) (27236) Comment: Performed By: #### CBC, ADIF F, ANEU #### [address] [address] #### CMP, GFR #### [address] [address] Chloride [Moles/Vol] 106 98-107 mmol/L Normal 0 [facility] ([place]) (0000 0) Comment: Performed By: #### CBC, ADIF F, ANEU #### [address] [address] #### CMP, GFR #### [address] [address] CO2 [Moles/Vol] 26 23-31 mmol/L Normal 04-21-2020 [facility] [place]) (28138) Comment: Performed By: #### CBC, ADIF F, ANEU #### [address] [address] #### CMP, GFR #### [address] [address] Creatinine [Mass/Vol] 0.94 0.70-1.30 mg/dL Normal 04-21-20 20 [facility] ([place]) (14910) Comment: Performed By: #### CBC, ADIF F, ANEU #### [address] [address] #### CMP, GFR #### [address] [address] Electrolyte Balance 7.0 mEq/L Normal 04-21-2020 [facility] ([place]) (90547) Comment: Performed By: #### CBC, ADIF F, ANEU #### [address] [address] #### CMP, GFR #### [address] [address] Glucose [Mass/Vol] 221 80-115 mg/dL High 04-21-2020 [facility] ([place]) (36969) Comment: Performed By: #### CBC, ADIF F, ANEU #### [address] [address] #### CMP, GFR #### [address] [address] Potassium [Moles/Vol] 3.6 3.5-5.1 mmol/L Normal 04-21-20 [facility] ([place]) (0000 0) Comment: Performed By: #### CBC, ADIF F, ANEU #### [address] [address] #### CMP, GFR #### [address] [address] Sodium [Moles/Vol] 139 136-145 mmol/L Normal 04-21-2020 [facility] ([place]) (0000 0) Comment: Performed By: #### CBC, ADIF F, ANEU #### [address] [address] #### CMP, GFR #### [address] [address] Urea nitrogen [Mass/Vol] 15 7-18 mg/dL Normal 04-21 [facility] ([place]) (0000 0) Comment: Performed By: #### CBC, ADIF F, ANEU #### [address] [address] #### CMP, GFR #### [address] [address] Urea nitrogen/Creatinine [Mass 16 7-27 ratio Normal 04-21-2020 [facility] ratio] [facility] ([place]) (93698) Comment: Performed By: #### CBC, ADIF F, ANEU #### [address] [address] #### CMP, GFR #### [facility] [address] [place] [address] .neuabs on Neutrophils (Bld) 3.20 2.85-6.16 10 3/mcL Normal 04-21-2020 [facility] [#/Vol] [facility] ([place]) (99468) Comment: Performed By: #### CBC, ADIF F, ANEU #### [place] [address] [address] #### CMP, GFR #### [facility] [address] [place] [address] .morph on 2020-04-12 0 Platelets (Bld) [#/Vol] Decreased Normal 2019 [facility] ([place]) (0000 0) Comment: Performed By: #### CBC, ADIF F, ANEU #### [address] [address] #### CMP, GFR #### [facility] [address] [place] [address] .gfr on 2020-04-21 GFR Non- 81 ml/min/1.73sqm Normal 04-21-2020 [facility] ([place]) (60353) Comment: Result Comment: GFR Population mean for Afri can [place], Non- Americans Ages 20-29 = 116 mL/min/1.73 [...] By: #### CBC, ADIF F, ANEU #### [address] [address] #### CMP, GFR #### [address] [address] GFR 99 ml/min/1.73sqm Normal - 0 [facility] ([place]) (0000 0) Comment: Result Comment: GFR Population mean for Afri can [place], Non- Americans Ages 20-29 = 116 mL/min/1.73 [...] By: #### CBC, ADIF F, ANEU #### [address] [address] #### CMP, GFR #### [address] [address] .auto diff on 04-21 Ammonia (P) [Mass/Vol] 0.60 0.15-1.00 10 3/mcL Normal 020 [facility] ([place]) (70871) Comment: Performed By: #### CBC, ADIF F, ANEU #### [address] [address] #### CMP, GFR #### [address] [address] Basophils (Bld) 0.00 0.00-0.19 10 3/mcL Normal 04-21-2020 [facility] [#/Vol] [facility] ([place]) (79718) Comment: Performed By: #### CBC, ADIF F, ANEU #### [address] [address] #### CMP, GFR #### [address] [address] Basophils/100 WBC (Bld) 0.6 0.0-2.5 % Normal 2019 [facility] ([place]) (0000 0) Comment: Performed By: #### CBC, ADIF F, ANEU #### [address] [address] #### CMP, GFR #### [address] [address] Eosinophils (Bld) 0.10 0.00-0.40 10 3/mcL Normal 04-21-2020 [facility] [#/Vol] [facility] ([place]) (73514) Comment: Performed By: #### CBC, ADIF F, ANEU #### [address] [address] #### CMP, GFR #### [address] [address] Eosinophils/100 WBC (Bld) 1.8 0.0-7.0 % Normal 04-12 [facility] ([place]) (0000 0) Comment: Performed By: #### CBC, ADIF F, ANEU #### [address] [address] #### CMP, GFR #### [address] [address] Lymphocytes (Bld) 0.80 0.77-3.85 10 3/mcL Normal 04-21-2020 [facility] [#/Vol] [facility] ([place]) (03225) Comment: Performed By: #### CBC, ADIF F, ANEU #### [address] [address] #### CMP, GFR #### [address] [address] Lymphocytes/100 WBC (Bld) 17.8 10.0-50.0 % Normal 04-12 0 [facility] ([place]) ([address]) Comment: Performed By: #### CBC, ADIF F, ANEU #### [address] [address] #### CMP, GFR #### [address] [address] Monocytes/100 WBC (Bld) 12.7 1.7-13.0 % Normal 2019 [facility] ([place]) (0000 0) Comment: Performed By: #### CBC, ADIF F, ANEU #### [place] [address] #### CMP, GFR #### [address] [address] Neutrophils/100 WBC (Bld) 67.1 37.0-80.0 % Normal 04-12 [facility] ([place]) ([address]) Comment: Performed By: #### CBC, ADIF F, ANEU #### [place] [address] #### CMP, GFR #### [address] [address] cbc on 2020-04-10 Erythrocyte distribution 21.5 11.5-14.5 % High 04-10 [facility] width (RBC) [Ratio] ([place]) ([address]) Comment: Performed By: #### CBC, ADIF F, ANEU #### [address] [address] #### CMP, GFR #### [address] [address] Hematocrit (Bld) [Volume 27.6 42.0-52.0 % Low 04-10 [facility] fraction] ([place]) (0000 0) Comment: Performed By: #### CBC, ADIF F, ANEU #### [place] [address] #### CMP, GFR #### [address] [address] Hemoglobin (Bld) 9.5 14.0-18.0 G/dL Low 04-10-2020 [facility] [Mass/Vol] ([place]) (000 00) Comment: Performed By: #### CBC, ADIF F, ANEU #### [place] [address] #### CMP, GFR #### [address] [address] MCH (RBC) [Entitic mass] 33.9 27.0-31.2 pg High 04-10 [facility] ([place]) (0000 0) Comment: Performed By: #### CBC, ADIF F, ANEU #### [place] [address] #### CMP, GFR #### [address] [address] MCHC (RBC) [Mass/Vol] 34.4 31.8-35.4 G/dL Normal 04-10-20 20 [facility] ([place]) (0000 0) Comment: Performed By: #### CBC, ADIF F, ANEU #### [place] [address] #### CMP, GFR #### [place] [address] MCV (RBC) [Entitic vol] 98.5 80.0-94.0 fL High 2019 [facility] ([place]) (0000 0) Comment: Performed By: #### CBC, ADIF F, ANEU #### [place] [address] #### CMP, GFR #### [place] [address] Platelet mean volume 8.2 7.4-10.4 fL Normal 0 [facility] (Bld) [Entitic vol] ([place]) (46031) Comment: Performed By: #### CBC, ADIF F, ANEU #### [place] [address] #### CMP, GFR #### [address] [address] Platelets (Bld) [#/Vol] 72 130-400 10 3/mcL Low 2019 [facility] ([place]) (0000 0) Comment: Performed By: #### CBC, ADIF F, ANEU #### [place] [address] #### CMP, GFR #### [address] [address] RBC (Bld) [#/Vol] 2.80 4.04-6.13 10 6/mcL Low 04-10-2020 A [facility] ([place]) (0000 0) Comment: Performed By: #### CBC, ADIF F, ANEU #### [place] [address] #### CMP, GFR #### [address] [address] WBC (Bld) [#/Vol] 5.40 4.60-10.80 10 3/mcL Normal 04-10-2020 [facility] ([place] ([id number]) Comment: Performed By: #### CBC, ADIF F, ANEU #### [place] [address] #### CMP, GFR #### [address] [address] bmp on 2020-04-10 Calcium [Mass/Vol] 7.8 8.4-10.2 mg/dL Low 04-10-2020 [facility] ([place] (54409) Comment: Performed By: #### CBC, ADIF F, ANEU #### [place] [address] #### CMP, GFR #### [address] [address] Chloride [Moles/Vol] 105 98-107 mmol/L Normal 0 [facility] ([place] (0000 0) Comment: Performed By: #### CBC, ADIF F, ANEU #### [place] [address] #### CMP, GFR #### [address] [address] CO2 [Moles/Vol] 26 23-31 mmol/L Normal 04-10-2020 [facility] ([place]) (11106) Comment: Performed By: #### CBC, ADIF F, ANEU #### [address] [address] #### CMP, GFR #### [address] [address] Creatinine [Mass/Vol] 0.97 0.70-1.30 mg/dL Normal 04-10-20 [facility] ([place] ([id number]) Comment: Performed By: #### CBC, ADIF F, ANEU #### [address] [address] #### CMP, GFR #### [address] [address] Electrolyte Balance 8.0 mEq/L Normal 04-10-2020 [facility] ([place] (19546) Comment: Performed By: #### CBC, ADIF F, ANEU #### [address] [address] #### CMP, GFR #### [address] [address] Glucose [Mass/Vol] 157 80-115 mg/dL High 04-10-2020 [facility] ([place] (46838) Comment: Performed By: #### CBC, ADIF F, ANEU #### [address] [address] #### CMP, GFR #### [address] [address] Potassium [Moles/Vol] 4.0 3.5-5.1 mmol/L Normal 04-10-20 20 [facility] ([place] (0000 0) Comment: Performed By: #### CBC, ADIF F, ANEU #### [address] [address] #### CMP, GFR #### [address] [address] Sodium [Moles/Vol] 139 136-145 mmol/L Normal 04-10-2020 [facility] ([place] (0000 0) Comment: Performed By: #### CBC, ADIF F, ANEU #### [address] [address] #### CMP, GFR #### [address] [address] Urea nitrogen [Mass/Vol] 12 7-18 mg/dL Normal 04-10 [facility] ([place] (0000 0) Comment: Performed By: #### CBC, ADIF F, ANEU #### [place] [address] #### CMP, GFR #### [place] [address] Urea nitrogen/Creatinine [Mass 12 7-27 ratio Normal 04-10-2020 [facility] ratio] [facility] ([place]) (28735) Comment: Performed By: #### CBC, ADIF F, ANEU #### [place] [address] #### CMP, GFR #### [place] [address] .neuabs on Neutrophils (Bld) 3.30 2.85-6.16 10 3/mcL Normal 04-10-2020 A [facility] [#/Vol] [facility] ([place]) (43761) Comment: Performed By: #### CBC, ADIF F, ANEU #### [place] [address] #### CMP, GFR #### [place] [address] .morph on 2020-03-14 0 Anisocytosis Ql (Bld) Slight Normal 04-10-20 20 [facility] ([place]) (15616) Comment: Performed By: #### CBC, ADIF F, ANEU #### [place] [address] #### CMP, GFR #### [place] [address] Basophilic stippling LM Ql Slight Normal [facility] (Bld) ([place]) (0000 0) Comment: Performed By: #### CBC, ADIF F, ANEU #### [address] [address] #### CMP, GFR #### [address] [address] Platelets (Bld) [#/Vol] Decreased Normal 2019 [facility] ([place] (0000 0) Comment: Performed By: #### CBC, ADIF F, ANEU #### [address] [address] #### CMP, GFR #### [address] [address] Polychrom Slight Normal 04-10-2020 [facility] ([place]) (19469) Comment: Performed By: #### CBC, ADIF F, ANEU #### [address] [address] #### CMP, GFR #### [address] [address] .gfr on 2020-04-10 GFR 95 ml/min/1.73sqm Normal 03-14 [facility] ([place] (0000 0) Comment: Result Comment: GFR Population mean for Afri can [place], Non- Americans Ages 20-29 = 116 mL/min/1.73 [...] By: #### CBC, ADIF F, ANEU #### [address] [address] #### CMP, GFR #### [address] [address] GFR Non- 78 ml/min/1.73sqm Normal 04-10-2020 [facility] ([place] (63841) Comment: Result Comment: GFR Population mean for Afri can [place], Non- Americans Ages 20-29 = 116 mL/min/1.73 [...] By: #### CBC, ADIF F, ANEU #### [address] [address] #### CMP, GFR #### [address] [address] .auto diff on 04-10 Ammonia (P) [Mass/Vol] 0.90 0.15-1.00 10 3/mcL Normal 04-10- 020 [facility] ([place] (23915) Comment: Performed By: #### CBC, ADIF F, ANEU #### [address] [address] #### CMP, GFR #### [address] [address] Basophils (Bld) 0.00 0.00-0.19 10 3/mcL Normal 04-10-2020 [facility] [#/Vol] [facility] ([place]) (23439) Comment: Performed By: #### CBC, ADIF F, ANEU #### [address] [address] #### CMP, GFR #### [address] [address] Basophils/100 WBC (Bld) 0.9 0.0-2.5 % Normal 2019 [facility] ([place] (0000 0) Comment: Performed By: #### CBC, ADIF F, ANEU #### [address] [address] #### CMP, GFR #### [address] [address] Eosinophils (Bld) 0.10 0.00-0.40 10 3/mcL Normal 04-10-2020 A [facility] [#/Vol] [facility] ([place]) (27534) Comment: Performed By: #### CBC, ADIF F, ANEU #### [place] [address] #### CMP, GFR #### [address] [address] Eosinophils/100 WBC (Bld) 1.5 0.0-7.0 % Normal 03-14 [facility] ([place]) (0000 0) Comment: Performed By: #### CBC, ADIF F, ANEU #### [place] [address] #### CMP, GFR #### [address] [address] Lymphocytes (Bld) 1.00 0.77-3.85 10 3/mcL Normal 04-10-2020 A [facility] [#/Vol] [facility] ([place]) (31476) Comment: Performed By: #### CBC, ADIF F, ANEU #### [place] [address] #### CMP, GFR #### [address] [address] Lymphocytes/100 WBC (Bld) 19.4 10.0-50.0 % Normal 03-14 [facility] ([place]) (71696) Comment: Performed By: #### CBC, ADIF F, ANEU #### [place] [address] #### CMP, GFR #### [address] [address] Monocytes/100 WBC (Bld) 16.0 1.7-13.0 % High 2019 [facility] ([place] (0000 0) Comment: Performed By: #### CBC, ADIF F, ANEU #### [address] [address] #### CMP, GFR #### [address] [address] Neutrophils/100 WBC (Bld) 62.2 37.0-80.0 % Normal --2019 [facility] ([place]) (38571) Comment: Performed By: #### CBC, ADIF F, ANEU #### [address] [address] #### CMP, GFR #### [address] [address] mg on 2020-03-31 Magnesium [Mass/Vol] 1.9 1.8-2.4 mg/dL Normal 0 [facility] ([place] (0000 0) Comment: Performed By: #### CBC, ADIF F, ANEU #### [place] [address] #### CMP, GFR #### [address] [address] cbc on 2020-03-31 Erythrocyte distribution 21.9 11.5-14.5 % High 03-31 [facility] width (RBC) [Ratio] ([place]) (73389) Comment: Performed By: #### CBC, ADIF F, ANEU #### [place] [address] #### CMP, GFR #### [address] [address] Hematocrit (Bld) [Volume 28.8 42.0-52.0 % Low 03-31 [facility] fraction] ([place]) (0000 0) Comment: Performed By: #### CBC, ADIF F, ANEU #### [address] [address] #### CMP, GFR #### [address] [address] Hemoglobin (Bld) 9.7 14.0-18.0 G/dL Low 03-31-2020 [facility] [Mass/Vol] ([place]) (000 00) Comment: Performed By: #### CBC, ADIF F, ANEU #### [address] [address] #### CMP, GFR #### [address] [address] MCH (RBC) [Entitic mass] 33.9 27.0-31.2 pg High 03-31 [facility] ([place]) (0000 0) Comment: Performed By: #### CBC, ADIF F, ANEU #### [address] [address] #### CMP, GFR #### [address] [address] MCHC (RBC) [Mass/Vol] 33.8 31.8-35.4 G/dL Normal 03-31-20 [facility] ([place]) (0000 0) Comment: Performed By: #### CBC, ADIF F, ANEU #### [place] [address] #### CMP, GFR #### [address] [address] MCV (RBC) [Entitic vol] 100.3 80.0-94.0 fL High 2019 [facility] ([place]) (0000 0) Comment: Performed By: #### CBC, ADIF F, ANEU #### [place] [address] #### CMP, GFR #### [address] [address] Platelet mean volume 8.4 7.4-10.4 fL Normal 0 [facility] (Bld) [Entitic vol] ([place]) (65367) Comment: Performed By: #### CBC, ADIF F, ANEU #### [place] [address] #### CMP, GFR #### [address] [address] Platelets (Bld) [#/Vol] 79 130-400 10 3/mcL Low 2019 [facility] ([place] (0000 0) Comment: Performed By: #### CBC, ADIF F, ANEU #### [address] [address] #### CMP, GFR #### [address] [address] RBC (Bld) [#/Vol] 2.87 4.04-6.13 10 6/mcL Low 03-31-2020 A [facility] ([place]) (0000 0) Comment: Performed By: #### CBC, ADIF F, ANEU #### [place] [address] #### CMP, GFR #### [address] [address] WBC (Bld) [#/Vol] 5.00 4.60-10.80 10 3/mcL Normal 03-31-2020 [facility] ([place]) (12323) Comment: Performed By: #### CBC, ADIF F, ANEU #### [address] [address] #### CMP, GFR #### [address] [address] bmp on 2020-03-31 Calcium [Mass/Vol] 8.2 8.4-10.2 mg/dL Low 03-31-2020 [facility] ([place] (08969) Comment: Performed By: #### CBC, ADIF F, ANEU #### [address] [address] #### CMP, GFR #### [address] [address] Chloride [Moles/Vol] 105 98-107 mmol/L Normal 0 [facility] ([place] (0000 0) Comment: Performed By: #### CBC, ADIF F, ANEU #### [address] [address] #### CMP, GFR #### [address] [address] CO2 [Moles/Vol] 25 23-31 mmol/L Normal 03-31-2020 [facility] [place]) (42461) Comment: Performed By: #### CBC, ADIF F, ANEU #### [address] [address] #### CMP, GFR #### [address] [address] Creatinine [Mass/Vol] 0.98 0.70-1.30 mg/dL Normal 03-31-20 [facility] ([place]) (63839) Comment: Performed By: #### CBC, ADIF F, ANEU #### [address] [address] #### CMP, GFR #### [address] [address] Electrolyte Balance 9.0 mEq/L Normal 03-31-2020 [facility] ([place]) (19232) Comment: Performed By: #### CBC, ADIF F, ANEU #### [address] [address] #### CMP, GFR #### [address] [address] Glucose [Mass/Vol] 164 80-115 mg/dL High 03-31-2020 [facility] ([place] (59887) Comment: Performed By: #### CBC, ADIF F, ANEU #### [address] [address] #### CMP, GFR #### [address] [address] Potassium [Moles/Vol] 4.0 3.5-5.1 mmol/L Normal 03-31-20 [facility] ([place] (0000 0) Comment: Performed By: #### CBC, ADIF F, ANEU #### [address] [address] #### CMP, GFR #### [address] [address] Sodium [Moles/Vol] 139 136-145 mmol/L Normal 03-31-2020 [facility] ([place] (0000 0) Comment: Performed By: #### CBC, ADIF F, ANEU #### [place] [address] #### CMP, GFR #### [address] [address] Urea nitrogen [Mass/Vol] 12 7-18 mg/dL Normal 03-31 [facility] ([place] (0000 0) Comment: Performed By: #### CBC, ADIF F, ANEU #### [place] [address] #### CMP, GFR #### [place] [address] Urea nitrogen/Creatinine [Mass 12 7-27 ratio Normal 03-31-2020 [facility]] [facility] ([place]) (38265) Comment: Performed By: #### CBC, ADIF F, ANEU #### [place] [address] #### CMP, GFR #### [address] [address] .morph on 2020-03-13 0 Hypochrom Slight Normal 03-31-2020 [facility] ([place]) (00737) Comment: Performed By: #### CBC, ADIF F, ANEU #### [place] [id number] #### CMP, GFR #### [address] [address] Platelets (Bld) [#/Vol] Decreased Normal 2019 [facility] ([place] (0000 0) Comment: Performed By: #### CBC, ADIF F, ANEU #### [place] [address] #### CMP, GFR #### [address] [address] .manual diff on 202 0-07-20 Basophil %, Manual 0.0 0.0-2.5 % Normal 03-31-2020 [facility] ([place]) (71732) Comment: Performed By: #### CBC, ADIF F, ANEU #### [place] [address] #### CMP, GFR #### [address] [address] Basophil, Abs Manual 0.00 0.00-0.19 10 3/mcL Normal 0 [facility] ([place] (97071) Comment: Performed By: #### CBC, ADIF F, ANEU #### [place] [address] #### CMP, GFR #### [address] [address] Eosinophil %, Manual 2.0 0.0-7.0 % Normal 0 [facility] ([place] (36329) Comment: Performed By: #### CBC, ADIF F, ANEU #### [place] [address] #### CMP, GFR #### [address] [address] Eosinophil, Abs Manual 0.10 0.00-0.40 10 3/mcL Normal 020 [facility] ([place]) (93339) Comment: Performed By: #### CBC, ADIF F, ANEU #### [place] [address] #### CMP, GFR #### [address] [address] Lymphocyte %, Manual 21.0 10.0-50.0 % Normal 0 [facility] ([place] (0000 0) Comment: Performed By: #### CBC, ADIF F, ANEU #### [place] [address] #### CMP, GFR #### [address] [address] Lymphocyte, Abs Manual 1.07 0.77-3.85 10 3/mcL Normal 020 [facility] ([place] (58007) Comment: Performed By: #### CBC, ADIF F, ANEU #### [place] [address] #### CMP, GFR #### [address] [address] Monocyte %, Manual 14.0 1.7-13.0 % High 03-31-2020 [facility] ([place] (85238) Comment: Performed By: #### CBC, ADIF F, ANEU #### [place] [address] #### CMP, GFR #### [address] [address] Monocyte, Abs Manual 0.71 0.15-1.00 10 3/mcL Normal 0 [facility] ([place] (02167) Comment: Performed By: #### CBC, ADIF F, ANEU #### [place] [address] #### CMP, GFR #### [address] [address] Neutrophil %, Manual 63.0 37.0-80.0 % Normal 0 [facility] ([place] (0000 0) Comment: Performed By: #### CBC, ADIF F, ANEU #### [place] [address] #### CMP, GFR #### [address] [address] Neutrophil, Abs Manual 3.21 2.85-6.16 10 3/mcL Normal 020 [facility] ([place] ([id number]) Comment: Performed By: #### CBC, ADIF F, ANEU #### [place] [address] #### CMP, GFR #### [address] [address] .gfr on 2020-03-31 GFR 94 ml/min/1.73sqm Normal 03-13 0-2019 [facility] ([place] (0000 0) Comment: Result Comment: GFR Population mean for Afri can [place], Non- Americans Ages 20-29 = 116 mL/min/1.73 [...] By: #### CBC, ADIF F, ANEU #### [address] [address] #### CMP, GFR #### [address] [address] GFR Non- 78 ml/min/1.73sqm Normal 03-31-2020 [facility] ([place]) (71072) Comment: Result Comment: GFR Population mean for Afri can [place], Non- Americans Ages 20-29 = 116 mL/min/1.73 [...] By: #### CBC, ADIF F, ANEU #### [address] [address] #### CMP, GFR #### [address] [address] xr ribs 2 views left/pa chest(ao) on 2020-03-17 XR RIBS 2 VIEWS ORIGINAL Normal 03-17-2020 [facility] LEFT/PA CHEST(AO) XR RIBS 2 VIEWS LEFT/PA CHEST(AO) [facility] ([place]) ([id number]) CLINICAL STATEMENT: fall / left sided rib [...] RIBS 2 Images were obtained outside of [facility] Normal 03-17-2020 [facility] VIEWS LEFT/PA [id number] [place] CHEST(AO) IMPORT (00 000) ct-ct abdomen/pelvis w/o contrast import on 2020-02-15 CT-CT ABDOMEN/PELVIS Images were obtained outside of [facility] Normal 02-15-2020 [place] W/O CONTRAST [id number] abdomen/pelvis w/o contrast on 2020-02-15 CT ABDOMEN/PELVIS W/O ORIGINAL Normal 02-15-20 20 [facility] CONTRAST CT ABDOMEN/PELVIS W/O CONTRAST [facility] ([place]) ([id number]) TECHNIQUE: Images were obtai margaux without contrast. [...] Sign Date: 02/15/2020 9:55:07 AM Ordering Provider:Jesse wasserman on 2020-02-08 CUR . Normal 02-08-2020 [place] MICRO - Microbiology [facility] ([place]) ([id number]) PROCEDURE: Urine Culture [*1] SOURCE: Urine, Clean [...] Cefazolin >16 Resistant Cefotaxime >32 Suspected ESBL Operater Ceftriaxone >32 Suspected ESBL Operater Cefuroxime >16 Resistant Ciprofloxacin <=1 Susceptible Gentamicin <=4 Susceptible Levofloxacin <=2 Susceptible Meropenem <=1 Susceptible Trimethoprim/ >2/38 Resistant Sulfa Performing Locations *1: This test was performed at: [facility], [address] [place] [address], [id number]- , [place] Comment: Performed By: #### CBC, ADIF F, ANEU #### [address] [address] #### CMP, GFR #### [address] [address] xr chest 2 views on 2020-02-06 XR CHEST 2 VIEWS ORIGINAL Normal 02-06-[address] [facility] XR CHEST 2 VIEWS [facility] ([place]) ([id number]) CLINICAL HISTORY: Shortness of breath COMPARISON: 07/14/2011. [...] Sign Date: 02/06/2020 1:19:43 PM Ordering Provider:Jesse archibald on 2020-02-06 Color (U) Ellie Normal 02-06-2020 [facility] ([place]) ([id number]) Comment: Performed By: #### CBC, ADIF F, ANEU #### [address] [address] #### CMP, GFR #### [address] [address] Glucose (U) [Mass/Vol] Negative Negative mg/dL Normal 020 [facility] ([place]) (97165) Comment: Performed By: #### CBC, ADIF F, ANEU #### [address] [address] #### CMP, GFR #### [address] [address] Ketones Ql (U) Negative Negative Normal 02-06-2020 [facility] ([place]) ([id number]) Comment: Performed By: #### CBC, ADIF F, ANEU #### [address] [address] #### CMP, GFR #### [place] [address] UA Appear Cloudy Clear Abnormal 02-06-2020 [facility] ([place] ([id number]) Comment: Performed By: #### CBC, ADIF F, ANEU #### [place] [address] #### CMP, GFR #### [place] [address] UA Blood Negative Negative Normal 02-06-2020 [facility] ([place]) (80918) Comment: Performed By: #### CBC, ADIF F, ANEU #### [place] [address] #### CMP, GFR #### [place] [address] UA Leuk Est Small Negative Abnormal 02-06-2020 [facility] ([place] ([id number]) Comment: Performed By: #### CBC, ADIF F, ANEU #### [place] [address] #### CMP, GFR #### [place] [address] UA Nitrite Negative Negative Normal 02-06-2020 [facility] ([place] (35477) Comment: Performed By: #### CBC, ADIF F, ANEU #### [place] [address] #### CMP, GFR #### [place] [address] UA pH 5.5 5.0 - 8.0 Normal 02-06-2020 [facility] ([place] ([id number]) Comment: Performed By: #### CBC, ADIF F, ANEU #### [address] [address] #### CMP, GFR #### [address] [address] UA Protein Negative Negative Normal 02-06-2020 [facility] ([place]) (50022) Comment: Performed By: #### CBC, ADIF F, ANEU #### [place] [address] #### CMP, GFR #### [place] [address] UA Spec Grav >=1.030 1.015-1.025 Abnormal 02-06-2020 [facility] ([place]) ([id number]) Comment: Performed By: #### CBC, ADIF F, ANEU #### [place] [address] #### CMP, GFR #### [place] [address] UA Specimen Type Clean Catch Normal 02-06-2020 [facility] ([place] ([id number]) Comment: Performed By: #### CBC, ADIF F, ANEU #### [place] [address] #### CMP, GFR #### [place] [address] UA Urobilinogen >=8.0 0.2-1.0 Abnormal 02-06-2020 [facility] [place] ([id number]) Comment: Performed By: #### CBC, ADIF F, ANEU #### [place] [address] #### CMP, GFR #### [place] [address] Urobilinogen Qn (U) Small Negative Abnormal 02-06-2020 [facility] ([place]) (0000 0) Comment: Performed By: #### CBC, ADIF F, ANEU #### [place] [address] #### CMP, GFR #### [address] [address] sr-xr chest 2 views import on 2020-02-06 SR-XR CHEST 2 Images were obtained outside of [facility] Normal 02-06-2020 [facility] VIEWS IMPORT [id number] [place] ([id number]) cmp on 2020-02-06 Albumin [Mass/Vol] 2.8 3.4-4.8 G/dL Low 02-06-2020 [facility] ([place] (74571) Comment: Performed By: #### CBC, ADIF F, ANEU #### [place] [address] #### CMP, GFR #### [place] [address] Albumin/Globulin [Mass ratio] 0.8 1.1-2.5 ratio Low 02-06-2020 [facility] ([place] (17148) Comment: Performed By: #### CBC, ADIF F, ANEU #### [place] [address] #### CMP, GFR #### [place] [address] ALP [Catalytic activity/Vol] 169 40-135 U/L High 0 02-06-2020 [facility] ([place] (0000 0) Comment: Performed By: #### CBC, ADIF F, ANEU #### [place] [address] #### CMP, GFR #### [place] [address] ALT [Catalytic activity/Vol] 31 10-35 U/L Normal 0 02-06-2020 [facility] ([place] (0000 0) Comment: Performed By: #### CBC, ADIF F, ANEU #### [place] [address] #### CMP, GFR #### [place] [address] AST [Catalytic activity/Vol] 48 10-40 U/L High 0 02-06-2020 [facility] ([place] (0000 0) Comment: Performed By: #### CBC, ADIF F, ANEU #### [address] [address] #### CMP, GFR #### [address] [address] Bili Total 4.5 0.2-1.0 mg/dL High 02-06-2020 [facility] ([place]) (09497) Comment: Result Comment: Use of this assay is not recommended for patients undergoing treatment with eltrombopag d ue to the potential for falsely elevated results. Performed By: #### CBC, ADIF F, ANEU #### [address] [address] #### CMP, GFR #### [address] [address] Calcium [Mass/Vol] 7.7 8.4-10.2 mg/dL Low 02-06-2020 [facility] ([place] (98155) Comment: Performed By: #### CBC, ADIF F, ANEU #### [place] [id number] #### CMP, GFR #### [address] [address] Chloride [Moles/Vol] 106 98-107 mmol/L Normal 0 [facility] ([place] (0000 0) Comment: Performed By: #### CBC, ADIF F, ANEU #### [address] [address] #### CMP, GFR #### [address] [address] CO2 [Moles/Vol] 24 23-31 mmol/L Normal 02-06-2020 [facility] [place] (57892) Comment: Performed By: #### CBC, ADIF F, ANEU #### [place] [id number] #### CMP, GFR #### [address] [address] Creatinine [Mass/Vol] 0.88 0.70-1.30 mg/dL Normal 02-06-20 [facility] ([place]) (98503) Comment: Performed By: #### CBC, ADIF F, ANEU #### [address] [address] #### CMP, GFR #### [address] [address] Electrolyte Balance 9.0 mEq/L Normal 02-06-2020 [facility] ([place]) (14784) Comment: Performed By: #### CBC, ADIF F, ANEU #### [address] [address] #### CMP, GFR #### [address] [address] Globulin (S) [Mass/Vol] 3.7 G/dL Normal 2019 [facility] ([place] (58314) Comment: Performed By: #### CBC, ADIF F, ANEU #### [address] [address] #### CMP, GFR #### [address] [address] Glucose [Mass/Vol] 214 80-115 mg/dL High 02-06-2020 [facility] ([place]) (18123) Comment: Performed By: #### CBC, ADIF F, ANEU #### [address] [address] #### CMP, GFR #### [address] [address] Potassium [Moles/Vol] 3.5 3.5-5.1 mmol/L Normal 02-06-20 [facility] ([place]) (0000 0) Comment: Performed By: #### CBC, ADIF F, ANEU #### [address] [address] #### CMP, GFR #### [address] [address] Protein [Mass/Vol] 6.5 6.4-8.2 G/dL Normal 02-06-2020 [facility] ([place]) (85697) Comment: Performed By: #### CBC, ADIF F, ANEU #### [address] [address] #### CMP, GFR #### [address] [address] Sodium [Moles/Vol] 139 136-145 mmol/L Normal 02-06-2020 [facility] ([place] (0000 0) Comment: Performed By: #### CBC, ADIF F, ANEU #### [place] [address] #### CMP, GFR #### [address] [address] Urea nitrogen [Mass/Vol] 11 7-18 mg/dL Normal 02-05 [facility] ([place]) (0000 0) Comment: Performed By: #### CBC, ADIF F, ANEU #### [place] [address] #### CMP, GFR #### [address] [address] Urea nitrogen/Creatinine [Mass 12 7-27 ratio Normal 02-06-2020 [facility] ([place]) ([address]) Comment: Performed By: #### CBC, ADIF F, ANEU #### [address] [address] #### CMP, GFR #### [address] [address] cbc on 2020-02-06 Erythrocyte distribution 25.1 11.5-14.5 % High 02-05 [facility] width (RBC) [Ratio] ([place]) ([address]) Comment: Performed By: #### ANEU, CMP , GFR, ADIFF, CBC #### [address] [address] Performed By: #### CBC, ADIF F, ANEU, CMP, GFR #### [address] [address] Hematocrit (Bld) [Volume 30.1 42.0-52.0 % Low 02-05 [facility] fraction] ([place]) (0000 0) Comment: Performed By: #### ANEU, CMP , GFR, ADIFF, CBC #### [place] [address] Performed By: #### CBC, ADIF F, ANEU, CMP, GFR #### [place] [address] Hemoglobin (Bld) 10.1 14.0-18.0 G/dL Low 02-06-2020 [facility] [Mass/Vol] ([place]) (000 00) Comment: Performed By: #### ANEU, CMP , GFR, ADIFF, CBC #### [place] [address] Performed By: #### CBC, ADIF F, ANEU, CMP, GFR #### [place] [address] [facility]CH (RBC) [Entitic mass] 32.3 27.0-31.2 pg High 02-05 [facility] ([place]) (0000 0) Comment: Performed By: #### ANEU, CMP , GFR, ADIFF, CBC #### [place] [address] Performed By: #### CBC, ADIF F, ANEU, CMP, GFR #### [place] [address] MCHC (RBC) [Mass/Vol] 33.6 31.8-35.4 G/dL Normal 02-06-20 [facility] ([place]) (0000 0) Comment: Performed By: #### ANEU, CMP , GFR, ADIFF, CBC #### [place] [address] Performed By: #### CBC, ADIF F, ANEU, CMP, GFR #### [place] [address] MCV (RBC) [Entitic vol] 96.1 80.0-94.0 fL High 2019 [facility] ([place]) (0000 0) Comment: Performed By: #### ANEU, CMP , GFR, ADIFF, CBC #### [address] [address] Performed By: #### CBC, ADIF F, ANEU, CMP, GFR #### [address] [address] Platelet mean volume 9.0 7.4-10.4 fL Normal 0 [facility] (Bld) [Entitic vol] ([place]) ([id number]) Comment: Performed By: #### ANEU, CMP , GFR, ADIFF, CBC #### [address] [address] Performed By: #### CBC, ADIF F, ANEU, CMP, GFR #### [address] [address] Platelets (Bld) [#/Vol] 60 130-400 10 3/mcL Low 2019 [facility] ([place] (0000 0) Comment: Performed By: #### ANEU, CMP , GFR, ADIFF, CBC #### [address] [address] Performed By: #### CBC, ADIF F, ANEU, CMP, GFR #### [address] [address] RBC (Bld) [#/Vol] 3.13 4.04-6.13 10 6/mcL Low 02-06-2020 [facility] ([place]) (0000 0) Comment: Performed By: #### ANEU, CMP , GFR, ADIFF, CBC #### [address] [address] Performed By: #### CBC, ADIF F, ANEU, CMP, GFR #### [address] [address] WBC (Bld) [#/Vol] 3.90 4.60-10.80 10 3/mcL Low 02-06-2020 [facility] ([place] (0000 0) Comment: Performed By: #### ANEU, CMP , GFR, ADIFF, CBC #### [address] [address] Performed By: #### CBC, ADIF F, ANEU, CMP, GFR #### [place] [address] .urinalysis microscopic (ao) on 2020-02-06 RBC (U) [#/Vol] None Seen None Seen Normal 02-06-2020 [facility] ([place]) (0000 0) Comment: Performed By: #### CBC, ADIF F, ANEU #### [place] [address] #### CMP, GFR #### [address] [address] UA Bacteria 4+ /hpf Abnormal 02-06-2020 [facility] ([place] ([id number]) Comment: Performed By: #### CBC, ADIF F, ANEU #### [place] [address] #### CMP, GFR #### [address] [address] UA Squam Epithelial None Seen None Seen Normal 02-06-2020 [facility] ([place] (0000 0) Comment: Performed By: #### CBC, ADIF F, ANEU #### [place] [address] #### CMP, GFR #### [address] [address] UA WBC LOADED None Seen Abnormal 02-06-2020 [facility] ([place]) ([address]) Comment: Performed By: #### CBC, ADIF F, ANEU #### [place] [address] #### CMP, GFR #### [address] [address] .neuabs on Neutrophils (Bld) 2.40 2.85-6.16 10 3/mcL Low 02-06-2020 [facility] [#/Vol] [facility] ([place]) (800[address]) Comment: Performed By: #### ANEU, CMP , GFR, ADIFF, CBC #### [place] [address] Performed By: #### CBC, ADIF F, ANEU, CMP, GFR #### [address] [address] .gfr on 2020-02-06 GFR Non- 88 ml/min/1.73sqm Normal 02-06-2020 [facility] ([place] ([id number]) Comment: Result Comment: GFR Population mean for Afri can [place], Non- Americans Ages 20-29 = 116 mL/min/1.73 [...] By: #### CBC, ADIF F, ANEU #### [address] [address] #### CMP, GFR #### [place] [address] GFR 106 ml/min/1.73sqm Normal 01-11 [facility] ([place] (0000 0) Comment: Result Comment: GFR Population mean for Afri can [place], Non- Americans Ages 20-29 = 116 mL/min/1.73 [...] By: #### CBC, ADIF F, ANEU #### [address] [address] #### CMP, GFR #### [place] [address] .auto diff on 02-05 Ammonia (P) [Mass/Vol] 0.50 0.15-1.00 10 3/mcL Normal 02-05-2 020 [facility] ([place] ([id number]) Comment: Performed By: #### ANEU, CMP , GFR, ADIFF, CBC #### [place] [address] Performed By: #### CBC, ADIF F, ANEU, CMP, GFR #### [place] [address] Basophils (Bld) 0.00 0.00-0.19 10 3/mcL Normal 02-06-2020 [facility] [#/Vol] [facility] ([place]) ([address]47) Comment: Performed By: #### ANEU, CMP , GFR, ADIFF, CBC #### [place] [address] Performed By: #### CBC, ADIF F, ANEU, CMP, GFR #### [place] [address] Basophils/100 WBC (Bld) 0.7 0.0-2.5 % Normal 2019 [facility] ([place] (0000 0) Comment: Performed By: #### ANEU, CMP , GFR, ADIFF, CBC #### [place] [address] Performed By: #### CBC, ADIF F, ANEU, CMP, GFR #### [place] [address] Eosinophils (Bld) 0.10 0.00-0.40 10 3/mcL Normal 02-05-2019 [facility] [#/Vol] [facility] ([place] ([address]83) Comment: Performed By: #### ANEU, CMP , GFR, ADIFF, CBC #### [place] [address] Performed By: #### CBC, ADIF F, ANEU, CMP, GFR #### [address] [address] Eosinophils/100 WBC (Bld) 2.9 0.0-7.0 % Normal 01-11 [facility] ([place] (0000 0) Comment: Performed By: #### ANEU, CMP , GFR, ADIFF, CBC #### [place] [address] Performed By: #### CBC, ADIF F, ANEU, CMP, GFR #### [address] [address] Lymphocytes (Bld) 0.80 0.77-3.85 10 3/mcL Normal 02-06-2020 [facility] [#/Vol] [facility] ([place] ([address]) Comment: Performed By: #### ANEU, CMP , GFR, ADIFF, CBC #### [place] [address] Performed By: #### CBC, ADIF F, ANEU, CMP, GFR #### [address] [address] Lymphocytes/100 WBC (Bld) 20.3 10.0-50.0 % Normal 01-11 [facility] ([place] (38358) Comment: Performed By: #### ANEU, CMP , GFR, ADIFF, CBC #### [place] [address] Performed By: #### CBC, ADIF F, ANEU, CMP, GFR #### [address] [address] Monocytes/100 WBC (Bld) 13.7 1.7-13.0 % High 2019 [facility] ([place] (0000 0) Comment: Performed By: #### ANEU, CMP , GFR, ADIFF, CBC #### [place] [address] Performed By: #### CBC, ADIF F, ANEU, CMP, GFR #### [address] [address] Neutrophils/100 WBC (Bld) 62.4 37.0-80.0 % Normal 01-11 [facility] ([place] (74942) Comment: Performed By: #### ANEU, CMP , GFR, ADIFF, CBC #### [address] [address] Performed By: #### CBC, ADIF F, ANEU, CMP, GFR #### [address] [address] xr hand and wrist 6 views left on 2019-11-22 XR HAND AND WRIST ORIGINAL Normal 11-22-2019 [facility] 6 VIEWS LEFT XR HAND AND WRIST 6 VIEWS LEFT [facility] ([place]) ([id number]) CLINICAL STATEMENT: painn s/p injury. COMPARISON: None [...] XR FOREARM 2 VIEWS ORIGINAL Normal 11-22-2019 [facility] LEFT XR FOREARM 2 VIEWS LEFT [facility] ([place] (23852) CLINICAL STATEMENT: pain s/p injury. COMPARISON: None [...] Albumin [Mass/Vol] 3.1 3.4-4.8 G/dL Low 10-22-2019 [facility] ([place] (78507) Comment: Performed By: #### CBC, ADIF F, ANEU #### [address] [address] #### CMP, GFR #### [address] [address] Albumin/Globulin [Mass ratio] 0.8 1.1-2.5 ratio Low 10-22-2019 [facility] ([place] (18396) Comment: Performed By: #### CBC, ADIF F, ANEU #### [place] [address] #### CMP, GFR #### [place] [address] ALP [Catalytic activity/Vol] 177 40-135 U/L High 0 10-22-2019 [facility] ([place] (0000 0) Comment: Performed By: #### CBC, ADIF F, ANEU #### [place] [address] #### CMP, GFR #### [place] [address] ALT [Catalytic activity/Vol] 41 10-35 U/L High 0 10-22-2019 [facility] ([place] (0000 0) Comment: Performed By: #### CBC, ADIF F, ANEU #### [place] [address] #### CMP, GFR #### [place] [address] AST [Catalytic activity/Vol] 50 10-40 U/L High 0 10-22-2019 [facility] ([place] (0000 0) Comment: Performed By: #### CBC, ADIF F, ANEU #### [place] [address] #### CMP, GFR #### [place] [address] Bili Total 2.5 0.2-1.0 mg/dL High 10-22-2019 [facility] ([place] (37100) Comment: Performed By: #### CBC, ADIF F, ANEU #### [address] [address] #### CMP, GFR #### [address] [address] Calcium [Mass/Vol] 8.5 8.4-10.2 mg/dL Normal 10-22-2019 [facility] ([place] (0000 0) Comment: Performed By: #### CBC, ADIF F, ANEU #### [address] [address] #### CMP, GFR #### [address] [address] Chloride [Moles/Vol] 107 98-107 mmol/L Normal 0 [facility] ([place] (0000 0) Comment: Performed By: #### CBC, ADIF F, ANEU #### [address] [address] #### CMP, GFR #### [address] [address] CO2 [Moles/Vol] 26 23-31 mmol/L Normal 10-22-2019 [facility] [place] (17082) Comment: Performed By: #### CBC, ADIF F, ANEU #### [address] [address] #### CMP, GFR #### [address] [address] Creatinine [Mass/Vol] 0.92 0.70-1.30 mg/dL Normal 10-22-19 20 [facility] ([place] (18709) Comment: Performed By: #### CBC, ADIF F, ANEU #### [address] [address] #### CMP, GFR #### [address] [address] Electrolyte Balance 8.0 mEq/L Normal 10-22-2019 [facility] ([place] (44053) Comment: Performed By: #### CBC, ADIF F, ANEU #### [address] [address] #### CMP, GFR #### [address] [address] Globulin (S) [Mass/Vol] 4.0 G/dL Normal 2019 [facility] ([place] (94135) Comment: Performed By: #### CBC, ADIF F, ANEU #### [address] [address] #### CMP, GFR #### [address] [address] Glucose [Mass/Vol] 190 80-115 mg/dL High 10-22-2019 [facility] ([place] (17801) Comment: Performed By: #### CBC, ADIF F, ANEU #### [address] [address] #### CMP, GFR #### [address] [address] Potassium [Moles/Vol] 3.9 3.5-5.1 mmol/L Normal 10-22-19 [facility] ([place] (0000 0) Comment: Performed By: #### CBC, ADIF F, ANEU #### [address] [address] #### CMP, GFR #### [address] [address] Protein [Mass/Vol] 7.1 6.4-8.2 G/dL Normal 10-22-2019 [facility] ([place] (31831) Comment: Performed By: #### CBC, ADIF F, ANEU #### [address] [address] #### CMP, GFR #### [address] [address] Sodium [Moles/Vol] 141 136-145 mmol/L Normal 10-22-2019 [facility] ([place] (0000 0) Comment: Performed By: #### CBC, ADIF F, ANEU #### [address] [address] #### CMP, GFR #### [address] [address] Urea nitrogen [Mass/Vol] 13 7-18 mg/dL Normal 10-22 [facility] ([place] (0000 0) Comment: Performed By: #### CBC, ADIF F, ANEU #### [address] [address] #### CMP, GFR #### [address] [address] Urea nitrogen/Creatinine [Mass 14 7-27 ratio Normal 10-22-2019 [facility] ratio] [facility] ([place]) (44404) Comment: Performed By: #### CBC, ADIF F, ANEU #### [address] [address] #### CMP, GFR #### [address] [address] cbc on 2019-10-22 Erythrocyte distribution 17.7 11.5-14.5 % High 10-22 [facility] width (RBC) [Ratio] ([place]) (46143) Comment: Performed By: #### CBC, ADIF F, ANEU #### [address] [address] #### CMP, GFR #### [address] [address] Hematocrit (Bld) [Volume 27.6 42.0-52.0 % Low 10-22 [facility] fraction] ([place]) (0000 0) Comment: Performed By: #### CBC, ADIF F, ANEU #### [place] [address] #### CMP, GFR #### [address] [address] Hemoglobin (Bld) 9.7 14.0-18.0 G/dL Low 10-22-2019 [facility] [Mass/Vol] ([place]) (000 00) Comment: Performed By: #### CBC, ADIF F, ANEU #### [place] [address] #### CMP, GFR #### [address] [address] MCH (RBC) [Entitic mass] 35.2 27.0-31.2 pg High 10-22 [facility] ([place] (0000 0) Comment: Performed By: #### CBC, ADIF F, ANEU #### [place] [address] #### CMP, GFR #### [place] [address] MCHC (RBC) [Mass/Vol] 34.9 31.8-35.4 G/dL Normal 10-22-19 20 [facility] ([place] (0000 0) Comment: Performed By: #### CBC, ADIF F, ANEU #### [place] [address] #### CMP, GFR #### [place] [address] MCV (RBC) [Entitic vol] 100.7 80.0-94.0 fL High 2019 [facility] ([place] (0000 0) Comment: Performed By: #### CBC, ADIF F, ANEU #### [place] [address] #### CMP, GFR #### [place] [address] Platelet mean volume 8.9 7.4-10.4 fL Normal 0 [facility] (d) [Entitic vol] ([place]) (67060) Comment: Performed By: #### CBC, ADIF F, ANEU #### [place] [address] #### CMP, GFR #### [place] [id number] Platelets (Bld) [#/Vol] 53 130-400 10 3/mcL Low 2019 [facility] ([place] (0000 0) Comment: Performed By: #### CBC, ADIF F, ANEU #### [place] [address] #### CMP, GFR #### [address] [address] RBC (Bld) [#/Vol] 2.74 4.04-6.13 10 6/mcL Low 10-22-2019 A [facility] ([place]) (0000 0) Comment: Performed By: #### CBC, ADIF F, ANEU #### [address] [address] #### CMP, GFR #### [address] [address] WBC (Bld) [#/Vol] 4.00 4.60-10.80 10 3/mcL Low 10-22-2019 [facility] ([place] (0000 0) Comment: Performed By: #### CBC, ADIF F, ANEU #### [address] [address] #### CMP, GFR #### [address] [address] .neuabs on Neutrophils (Bld) 2.30 2.85-6.16 10 3/mcL Low 10-22-2019 [facility] [#/Vol] [facility] ([place]) (93214) Comment: Performed By: #### CBC, ADIF F, ANEU #### [address] [address] #### CMP, GFR #### [address] [address] .gfr on 2019-10-22 GFR 101 ml/min/1.73sqm Normal 10-13 [facility] ([place]) (0000 0) Comment: Result Comment: GFR Population mean for Afri can [place], Non- Americans Ages 20-29 = 116 mL/min/1.73 [...] By: #### CBC, ADIF F, ANEU #### [address] [address] #### CMP, GFR #### [address] [address] GFR Non- 83 ml/min/1.73sqm Normal 10-22-2019 [facility] ([place] (42246) Comment: Result Comment: GFR Population mean for Afri can [place], Non- Americans Ages 20-29 = 116 mL/min/1.73 [...] By: #### CBC, ADIF F, ANEU #### [address] [address] #### CMP, GFR #### [address] [address] .auto diff on 10-22 Ammonia (P) [Mass/Vol] 0.60 0.15-1.00 10 3/mcL Normal 020 [facility] ([place] (41928) Comment: Performed By: #### CBC, ADIF F, ANEU #### [address] [address] #### CMP, GFR #### [address] [address] Basophils (Bld) 0.00 0.00-0.19 10 3/mcL Normal 10-22-2019 [facility] [#/Vol] [facility] ([place]) (45035) Comment: Performed By: #### CBC, ADIF F, ANEU #### [place] [address] #### CMP, GFR #### [address] [address] Basophils/100 WBC (Bld) 0.7 0.0-2.5 % Normal 2019 [facility] ([place] (0000 0) Comment: Performed By: #### CBC, ADIF F, ANEU #### [place] [address] #### CMP, GFR #### [address] [address] Eosinophils (Bld) 0.10 0.00-0.40 10 3/mcL Normal 10-22-2019 [facility] [#/Vol] [facility] ([place]) (91513) Comment: Performed By: #### CBC, ADIF F, ANEU #### [place] [address] #### CMP, GFR #### [address] [address] Eosinophils/100 WBC (Bld) 2.7 0.0-7.0 % Normal 02 0 [facility] ([place] (0000 0) Comment: Performed By: #### CBC, ADIF F, ANEU #### [place] [address] #### CMP, GFR #### [address] [address] Lymphocytes (Bld) 1.00 0.77-3.85 10 3/mcL Normal 10-22-2019 [facility] [#/Vol] [facility] ([place]) (47669) Comment: Performed By: #### CBC, ADIF F, ANEU #### [place] [address] #### CMP, GFR #### [address] [address] Lymphocytes/100 WBC (Bld) 24.1 10.0-50.0 % Normal 10-13 [facility] ([place] (72167) Comment: Performed By: #### CBC, ADIF F, ANEU #### [address] [address] #### CMP, GFR #### [address] [address] Monocytes/100 WBC (Bld) 14.1 1.7-13.0 % High 2019 [facility] ([place] (0000 0) Comment: Performed By: #### CBC, ADIF F, ANEU #### [address] [address] #### CMP, GFR #### [address] [address] Neutrophils/100 WBC (Bld) 58.4 37.0-80.0 % Normal 10-13 [facility] ([place] (98082) Comment: Performed By: #### CBC, ADIF F, ANEU #### [address] [address] #### CMP, GFR #### [address] [address] sed rate on 2017-06 Sed Rate 61 0-10 mm/h High 07-12-2017 [facility] (73170) Comment: Performed By: #### HEMDF, BM P3, PCAL ####[address] [address] hemogram w/ autodiff on 2017-07-12 Granulocytes/100 WBC (Bld) 60.2 % Normal [facility] (86127) Comment: Performed By: #### HEMDF, BM P3, PCAL ####[address] [address] Platelets 98 140-440 10*3/uL Low 07-12-2017 [facility] (21536) Comment: Performed By: #### HEMDF, BM P3, PCAL ####[address] [address] Abs Baso Cnt 0.0 0.0-0.2 10*3/uL Normal 07-12-2017 [facility] (77574) Comment: Performed By: #### HEMDF, BM P3, PCAL ####[place] [address] [place] [address] Basophils/100 WBC Auto (Bld) 0.6 % Normal 1 [facility] (74288) Comment: Performed By: #### HEMDF, BM P3, PCAL ####[place] [address] [place] [address] Eosinophils 0.1 0.0-0.5 10*3/uL Normal 07-12-2017 [facility] (23656) Comment: Performed By: #### HEMDF, BM P3, PCAL ####[place] [address] [place] [address] Eosinophils/100 leukocytes 2.8 % Normal [facility] (84275) Comment: Performed By: #### HEMDF, BM P3, PCAL ####[place] [address] [place] [address] Erythrocyte distribution 16.8 11.5-14.5 % High 07-12 [facility] width Auto Ratio (RBC) (61278) Comment: Performed By: #### HEMDF, BM P3, PCAL ####[place] [address] [place] [address] Erythrocytes (RBC) 2.90 4.40-5.90 10*6/uL Low 07-12-2017 [facility] (22341) Comment: Performed By: #### HEMDF, BM P3, PCAL ####[place] [address] [place] [address] Hematocrit (HCT) 29.2 40.0-52.0 % Low 07-12-2017 [facility] (31037) Comment: Performed By: #### HEMDF, BM P3, PCAL ####[place] [address] [place] [address] Hemoglobin mass conc (Bld) 10.0 13.0-18.0 g/dL Low [facility] (32211) Comment: Performed By: #### HEMDF, BM P3, PCAL ####[address] [address] Lymphocytes 1.4 1.0-4.3 10*3/uL Normal 07-12-2017 [facility] (61157) Comment: Performed By: #### HEMDF, BM P3, PCAL ####[place] [address] [place] [address] Lymphocytes/100 leukocytes 26.7 % Normal [facility] (73590) Comment: Performed By: #### HEMDF, BM P3, PCAL ####[address] [address] MCH 34.6 26.0-34.0 pg High 07-12-2017 [facility] (15297) Comment: Performed By: #### HEMDF, BM P3, PCAL ####[address] [place] [address] MCHC mass conc (RBC) 34.3 32.0-36.0 % Normal 7 [facility] (75214) Comment: Performed By: #### HEMDF, BM P3, PCAL ####[address] [address] MCV 100.7 80.0-98.0 fL High 07-12-2017 [facility] (19899) Comment: Performed By: #### HEMDF, BM P3, PCAL ####[address] [address] Monocytes 0.5 0.0-0.8 10*3/uL Normal 07-12-2017 [facility] (24986) Comment: Performed By: #### HEMDF, BM P3, PCAL ####[address] [address] Monocytes/100 leukocytes 9.7 % Normal 07-12 [facility] (55531) Comment: Performed By: #### HEMDF, BM P3, PCAL ####[address] [place] [address] Neutrophils 3.1 1.8-7.0 10*3/uL Normal 07-12-2017 [facility] (90015) Comment: Performed By: #### HEMDF, BM P3, PCAL ####[address] [place] [address] Platelet mean volume (PMV) 9.4 7.4-10.4 fL Normal [facility] (70406) Comment: Performed By: #### HEMDF, BM P3, PCAL ####[address] [address] WBC (Leukocytes) 5.1 3.6-10.7 10*3/uL Normal 07-12-2017 [facility] (85993) Comment: Performed By: #### HEMDF, BM P3, PCAL ####[address] [address] comp metabolic panel on 2017-07-12 Alanine aminotransferase (ALT) 69 12-78 U/L Normal 07-12-2017 [facility] (21172) Comment: Performed By: #### HEMDF, BM P3, PCAL ####[address] [address] Albumin 3.2 3.4-5.0 g/dL Low 07-12-2017 [facility] (90121) Comment: Performed By: #### HEMDF, BM P3, PCAL ####[address] [address] Alkaline phosphatase (ALP) 271 45-117 U/L High [facility] (11630) Comment: Performed By: #### HEMDF, BM P3, PCAL ####[address] [address] Anion gap 10 mmol/L Normal 07-12-2017 [facility] (00743) Comment: Performed By: #### HEMDF, BM P3, PCAL ####[address] [address] Aspartate aminotransferase (AST) 56 15-37 U/L High 07-12-2017 [facility] (48868) Comment: Performed By: #### HEMDF, BM P3, PCAL ####[place] [address] [place] [address] Bilirubin (total) 0.6 0.2-1.0 mg/dL Normal 07-12-2017 [facility] (77492) Comment: Performed By: #### HEMDF, BM P3, PCAL ####[place] [address] [place] [address] Calcium 8.5 8.2-10.1 mg/dL Normal 07-12-2017 [facility] (89669) Comment: Performed By: #### HEMDF, BM P3, PCAL ####[address] [place] [address] Chloride 106 98-109 mmol/L Normal 07-12-2017 [facility] (72144) Comment: Performed By: #### HEMDF, BM P3, PCAL ####[place] [address] [place] [address] CO2 23 21-32 mmol/L Normal 07-12-2017 [facility] (95607) Comment: Performed By: #### HEMDF, BM P3, PCAL ####[place] [address] [place] [address] Creatinine 0.82 0.55-1.40 mg/dL Normal 07-12-2017 [facility] (90066) Comment: Performed By: #### HEMDF, BM P3, PCAL ####[place] [address] [place] [address] eGFR (black) >60.0 >60 mL/min/{1.73_m2} Normal 07-12-2017 [facility] (91211) Comment: Performed By: #### HEMDF, BM P3, PCAL ####[place] [address] [place] [address] eGFR (non-black) >60.0 >60 mL/min/{1.73_m2} Normal 2016 [facility] (17364) Comment: Result Comment: Source- MDRD equation with creatinine calibration to IDMS(NKDEP)eGFR not recommen ded for drug dose adjustment Performed By: #### HEMDF, BM P3, PCAL ####[place] [address] [place] [address] Glucose mass conc 101 70-100 mg/dL High 07-12-2017 [facility] (31961) Comment: Performed By: #### HEMDF, BM P3, PCAL ####[place] [address] [place] [address] Potassium molar conc 3.5 3.5-5.1 mmol/L Normal 7 [facility] (27334) Comment: Performed By: #### HEMDF, BM P3, PCAL ####[place] [address] [place] [address] Protein 7.1 6.4-8.2 g/dL Normal 07-12-2017 [facility] (55900) Comment: Performed By: #### HEMDF, BM P3, PCAL ####[place] [address] [place] [address] Sodium 139 135-145 mmol/L Normal 07-12-2017 [facility] (51053) Comment: Performed By: #### HEMDF, BM P3, PCAL ####[place] [address] [place] [address] Urea nitrogen 13 7-25 mg/dL Normal 07-12-2017 [facility] (00106) Comment: Performed By: #### HEMDF, BM P3, PCAL ####[place] [address] [place] [address] ck on 2017-07-12 Creatine kinase (CK) 86 39-308 U/L Normal 7 [facility] (53404) Comment: Performed By: #### HEMDF, BM P3, PCAL ####[place] [address] [place] [address] c-reactive protein on 2017-07-12 C reactive protein (CRP) 7.3 0.0-2.9 mg/L High 07-12 [facility] (80401) Comment: Result Comment: . Performed By: #### HEMDF, BM P3, PCAL ####[place] [address] [place] [address] sed rate on 2017-06 Sed Rate 51 0-10 mm/h High 06-28-2017 [facility] ([id number]) Comment: Performed By: #### HEMDF, BM P3, PCAL ####[address] [place] [address] hemogram w/ autodiff on 2017-06-28 Abs Baso Cnt 0.0 0.0-0.2 10*3/uL Normal 06-28-2017 [facility] ([id number]) Comment: Performed By: #### HEMDF, BM P3, PCAL ####[address] [place] [address] Basophils/100 WBC Auto (Bld) 1.2 % Normal 1 [facility] ([id number]) Comment: Performed By: #### HEMDF, BM P3, PCAL ####[address] [place] [address] Eosinophils 0.1 0.0-0.5 10*3/uL Normal 06-28-2017 [facility] ([id number]) Comment: Performed By: #### HEMDF, BM P3, PCAL ####[address] [place] [address] Eosinophils/100 leukocytes 2.6 % Normal [facility] (52913) Comment: Performed By: #### HEMDF, BM P3, PCAL ####[address] [place] [address] Erythrocyte distribution 16.4 11.5-14.5 % High 06-28 [facility] width Auto Ratio (RBC) ([id number]) Comment: Performed By: #### HEMDF, BM P3, PCAL ####[address] [place] [address] Erythrocytes (RBC) 2.77 4.40-5.90 10*6/uL Low 06-28-2017 [facility] ([id number]) Comment: Performed By: #### HEMDF, BM P3, PCAL ####[address] [place] [address] Granulocytes/100 WBC (Bld) 61.8 % Normal [facility] (77991) Comment: Performed By: #### HEMDF, BM P3, PCAL ####[address] [place] [address] Hematocrit (HCT) 28.0 40.0-52.0 % Low 06-28-2017 [facility] (28042) Comment: Performed By: #### HEMDF, BM P3, PCAL ####[address] [place] [address] Hemoglobin mass conc (Bld) 9.3 13.0-18.0 g/dL Low [facility] (62323) Comment: Performed By: #### HEMDF, BM P3, PCAL ####[address] [place] [address] Lymphocytes 1.0 1.0-4.3 10*3/uL Normal 06-28-2017 [facility] ([id number]) Comment: Performed By: #### HEMDF, BM P3, PCAL ####[address] [address] Lymphocytes/100 leukocytes 27.3 % Normal [facility] (64905) Comment: Performed By: #### HEMDF, BM P3, PCAL ####[address] [place] [address] MCH 33.7 26.0-34.0 pg Normal 06-28-2017 [facility] ([id number]) Comment: Performed By: #### HEMDF, BM P3, PCAL ####[address] [place] [address] MCHC mass conc (RBC) 33.2 32.0-36.0 % Normal 7 [facility] (57579) Comment: Performed By: #### HEMDF, BM P3, PCAL ####[address] [place] [address] MCV 101.3 80.0-98.0 fL High 06-28-2017 [facility] (20505) Comment: Performed By: #### HEMDF, BM P3, PCAL ####[address] [place] [address] Monocytes 0.3 0.0-0.8 10*3/uL Normal 06-28-2017 [facility] (64732) Comment: Performed By: #### HEMDF, BM P3, PCAL ####[address] [place] [address] Monocytes/100 leukocytes 7.1 % Normal 06-28 [facility] (67343) Comment: Performed By: #### HEMDF, BM P3, PCAL ####[address] [place] [address] Neutrophils 2.3 1.8-7.0 10*3/uL Normal 06-28-2017 [facility] (66610) Comment: Performed By: #### HEMDF, BM P3, PCAL ####[address] [place] [address] Platelet mean volume (PMV) 9.9 7.4-10.4 fL Normal [facility] (93905) Comment: Performed By: #### HEMDF, BM P3, PCAL ####[address] [place] [address] Platelets 76 140-440 10*3/uL Low 06-28-2017 [facility] (96797) Comment: Performed By: #### HEMDF, BM P3, PCAL ####[address] [place] [address] WBC (Leukocytes) 3.7 3.6-10.7 10*3/uL Normal 06-28-2017 [facility] (25552) Comment: Performed By: #### HEMDF, BM P3, PCAL ####[address] [place] [address] comp metabolic panel on 2017-06-28 Alanine aminotransferase (ALT) 99 12-78 U/L High 06-28-2017 [facility] ([id number]) Comment: Performed By: #### HEMDF, BM P3, PCAL ####[address] [place] [address] Albumin 3.1 3.4-5.0 g/dL Low 06-28-2017 [facility] (63038) Comment: Performed By: #### HEMDF, BM P3, PCAL ####[address] [place] [address] Alkaline phosphatase (ALP) 318 45-117 U/L High [facility] (79261) Comment: Performed By: #### HEMDF, BM P3, PCAL ####[address] [place] [address] Anion gap 16 mmol/L Normal 06-28-2017 [facility] (15175) Comment: Performed By: #### HEMDF, BM P3, PCAL ####[address] [place] [address] Aspartate aminotransferase (AST) 79 15-37 U/L High 06-28-2017 [facility] (32668) Comment: Performed By: #### HEMDF, BM P3, PCAL ####[address] [place] [address] Bilirubin (total) 0.5 0.2-1.0 mg/dL Normal 06-28-2017 [facility] (36935) Comment: Performed By: #### HEMDF, BM P3, PCAL ####[address] [place] [address] Calcium 8.8 8.2-10.1 mg/dL Normal 06-28-2017 [facility] (70030) Comment: Performed By: #### HEMDF, BM P3, PCAL ####[address] [place] [address] Chloride 103 98-109 mmol/L Normal 06-28-2017 [facility] (63070) Comment: Performed By: #### HEMDF, BM P3, PCAL ####[address] [place] [address] CO2 24 21-32 mmol/L Normal 06-28-2017 [facility] (71756) Comment: Performed By: #### HEMDF, BM P3, PCAL ####[address] [place] [address] Creatinine 0.99 0.55-1.40 mg/dL Normal 06-28-2017 [facility] (08228) Comment: Performed By: #### HEMDF, BM P3, PCAL ####[address] [place] [address] eGFR (black) >60.0 >60 mL/min/{1.73_m2} Normal 06-28-2017 [facility] (64368) Comment: Performed By: #### HEMDF, BM P3, PCAL ####[address] [place] [address] eGFR (non-black) >60.0 >60 mL/min/{1.73_m2} Normal 2016 [facility] (69404) Comment: Result Comment: Source- MDRD equation with creatinine calibration to IDMS(NKDEP)eGFR not recommen ded for drug dose adjustment Performed By: #### HEMDF, BM P3, PCAL ####[address] [place] [address] Glucose mass conc 236 70-100 mg/dL High 06-28-2017 [facility] (55526) Comment: Performed By: #### HEMDF, BM P3, PCAL ####[address] [place] [address] Potassium molar conc 3.9 3.5-5.1 mmol/L Normal 7 [facility] (45452) Comment: Performed By: #### HEMDF, BM P3, PCAL ####[address] [place] [address] Protein 7.0 6.4-8.2 g/dL Normal 06-28-2017 [facility] (51509) Comment: Performed By: #### HEMDF, BM P3, PCAL ####[address] [place] [address] Sodium 143 135-145 mmol/L Normal 06-28-2017 [facility] (93744) Comment: Performed By: #### HEMDF, BM P3, PCAL ####[address] [place] [address] Urea nitrogen 15 7-25 mg/dL Normal 06-28-2017 [facility] (64921) Comment: Performed By: #### HEMDF, BM P3, PCAL ####[address] [place] [address] ck on 2017-06-28 Creatine kinase (CK) 279 39-308 U/L Normal 7 [facility] (57329) Comment: Performed By: #### HEMDF, BM P3, PCAL ####[address] [place] [address] c-reactive protein on 2017-06-28 C reactive protein (CRP) 5.1 0.0-2.9 mg/L High 06-28 [facility] (89509) Comment: Result Comment: . Performed By: #### HEMDF, BM P3, PCAL ####[address] [place] [address] xa special angiography procedure on 2017-06-16 XA Special Angiography Patient Name: FOSTER, Normal 06-16-2017 [facility] ([id number]) Special Procedures Exam Date/Time 06/14/2017 14:20:00 EDT Exam XA Special Angiography Procedure Ordering Physician CECE MARINO Accession Number [id number] Reason For Exam tunnel dialysis catheter removal [...] 06-06 Vancomycin 27.4 15.0-20.0 ug/mL High 06-06-2017 [facility] (77402) Comment: Result Comment: . Performed By: #### HEMDF, BM P3, PCAL ####[address] [address] hemogram w/ autodiff on 2017-06-06 Abs Baso Cnt 0.0 0.0-0.2 10*3/uL Normal 06-06-2017 [facility] (77620) Comment: Performed By: #### HEMDF, BM P3, PCAL ####[address] [address] Basophils/100 WBC Auto (Bld) 0.3 % Normal 0 06-06-2017 [facility] (11511) Comment: Performed By: #### HEMDF, BM P3, PCAL ####[address] [address] Eosinophils 0.1 0.0-0.5 10*3/uL Normal 06-06-2017 [facility] (29020) Comment: Performed By: #### HEMDF, BM P3, PCAL ####[address] [address] Eosinophils/100 leukocytes 2.5 % Normal [facility] (11560) Comment: Performed By: #### HEMDF, BM P3, PCAL ####[address] [place] [address] Erythrocyte distribution 15.8 11.5-14.5 % High 06-06 [facility] width Auto Ratio (RBC) (92518) Comment: Performed By: #### HEMDF, BM P3, PCAL ####[address] [place] [address] Erythrocytes (RBC) 2.02 4.40-5.90 10*6/uL Low 06-06-2017 [facility] (24420) Comment: Performed By: #### HEMDF, BM P3, PCAL ####[address] [address] Granulocytes/100 WBC (Bld) 60.7 % Normal [facility] (42704) Comment: Performed By: #### HEMDF, BM P3, PCAL ####[address] [address] Hematocrit (HCT) 20.7 40.0-52.0 % Low 06-06-2017 [facility] (61975) Comment: Performed By: #### HEMDF, BM P3, PCAL ####[place] [address] Hemoglobin mass conc (Bld) 7.0 13.0-18.0 g/dL Low [facility] (11496) Comment: Performed By: #### HEMDF, BM P3, PCAL ####[address] [address] Lymphocytes 1.1 1.0-4.3 10*3/uL Normal 06-06-2017 [facility] (49247) Comment: Performed By: #### HEMDF, BM P3, PCAL ####[address] [address] Lymphocytes/100 leukocytes 26.9 % Normal [facility] (78529) Comment: Performed By: #### HEMDF, BM P3, PCAL ####[address] [place] [address] MCH 34.7 26.0-34.0 pg High 06-06-2017 [facility] (90252) Comment: Performed By: #### HEMDF, BM P3, PCAL ####[address] [place] [address] MCHC mass conc (RBC) 33.8 32.0-36.0 % Normal 201 7 [facility] (81763) Comment: Performed By: #### HEMDF, BM P3, PCAL ####[address] [place] [address] MCV 102.5 80.0-98.0 fL High 06-06-2017 [facility] (33003) Comment: Performed By: #### HEMDF, BM P3, PCAL ####[address] [place] [address] Monocytes 0.4 0.0-0.8 10*3/uL Normal 06-06-2017 [facility] (46224) Comment: Performed By: #### HEMDF, BM P3, PCAL ####[address] [place] [address] Monocytes/100 leukocytes 9.6 % Normal 06-06 [facility] (81279) Comment: Performed By: #### HEMDF, BM P3, PCAL ####[address] [place] [address] Neutrophils 2.6 1.8-7.0 10*3/uL Normal 06-06-2017 [facility] (19495) Comment: Performed By: #### HEMDF, BM P3, PCAL ####[address] [place] [address] Platelet mean volume (PMV) 8.6 7.4-10.4 fL Normal [facility] (53737) Comment: Performed By: #### HEMDF, BM P3, PCAL ####[address] [place] [address] Platelets 97 140-440 10*3/uL Low 06-06-2017 [facility] (61605) Comment: Performed By: #### HEMDF, BM P3, PCAL ####[address] [place] [address] WBC (Leukocytes) 4.3 3.6-10.7 10*3/uL Normal 06-06-2017 [facility] (28132) Comment: Performed By: #### HEMDF, BM P3, PCAL ####[address] [place] [address] glucose,bedside on 2017-06-06 Glucose mass conc 140 70-100 mg/dL High 06-06-2017 [facility] (16095) Comment: Result Comment: Test perform ed by glucose meter. Results may be 10%-15% lowerthan serum/plasma value s. (CLIA ID [id number]) Performed By: #### HEMDF, BM P3, PCAL ####[address] [place] [address] Glucose mass conc 147 70-100 mg/dL High 06-06-2017 [facility] (12448) Comment: Result Comment: Test perform ed by glucose meter. Results may be 10%-15% lowerthan serum/plasma value s. (CLIA ID [id number]) Performed By: #### HEMDF, BM P3, PCAL ####[address] [place] [address] Glucose mass conc 120 70-100 mg/dL High 06-06-2017 [facility] (48548) Comment: Result Comment: Test perform ed by glucose meter. Results may be 10%-15% lowerthan serum/plasma value s. (CLIA ID [id number]) Performed By: #### HEMDF, BM P3, PCAL ####[address] [place] [address] basic metabolic panel on 2017-06-06 Creatinine 5.57 0.55-1.40 mg/dL High 06-06-2017 [facility] (40031) Comment: Performed By: #### HEMDF, BM P3, PCAL ####[address] [place] [address] eGFR (black) 12.7 >60 mL/min Normal 06-06-2017 [facility] (20800) Comment: Performed By: #### HEMDF, BM P3, PCAL ####[address] [place] [address] eGFR (non-black) 10.5 >60 mL/min Normal 06-06-2017 [facility] (60520) Comment: Result Comment: Source- MDRD equation with creatinine calibration to IDMS(NKDEP)eGFR not recommen ded for drug dose adjustment Performed By: #### HEMDF, BM P3, PCAL ####[address] [place] [address] Anion gap 9 mmol/L Normal 06-06-2017 [facility] (81246) Comment: Performed By: #### HEMDF, BM P3, PCAL ####[address] [place] [address] CO2 28 21-32 mmol/L Normal 06-06-2017 [facility] (75959) Comment: Performed By: #### HEMDF, BM P3, PCAL ####[address] [place] [address] Glucose mass conc 120 70-100 mg/dL High 06-06-2017 [facility] (91468) Comment: Performed By: #### HEMDF, BM P3, PCAL ####[address] [place] [address] Urea nitrogen 35 7-25 mg/dL High 06-06-2017 [facility] (10673) Comment: Performed By: #### HEMDF, BM P3, PCAL ####[address] [place] [address] Calcium 8.3 8.2-10.1 mg/dL Normal 06-06-2017 [facility] (56193) Comment: Performed By: #### HEMDF, BM P3, PCAL ####[address] [place] [address] Chloride 103 98-109 mmol/L Normal 06-06-2017 [facility] (88868) Comment: Performed By: #### HEMDF, BM P3, PCAL ####[address] [place] [address] Potassium molar conc 3.7 3.5-5.1 mmol/L Normal 7 [facility] (83238) Comment: Performed By: #### HEMDF, BM P3, PCAL ####[address] [place] [address] Sodium 140 135-145 mmol/L Normal 06-06-2017 [facility] (24928) Comment: Performed By: #### HEMDF, BM P3, PCAL ####[address] [place] [address] glucose,bedside on 2017-06-05 Glucose mass conc 149 70-100 mg/dL High 06-05-2017 [facility] (19057) Comment: Result Comment: Test perform ed by glucose meter. Results may be 10%-15% lowerthan serum/plasma value s. (CLIA ID [id number]) Performed By: #### HEMDF, BM P3, PCAL ####[address] [place] [address] Glucose mass conc 108 70-100 mg/dL High 06-05-2017 [facility] (51044) Comment: Result Comment: Test perform ed by glucose meter. Results may be 10%-15% lowerthan serum/plasma value s. (CLIA ID [id number]) Performed By: #### HEMDF, BM P3, PCAL ####[address] [place] [address] basic metabolic panel on 2017-06-05 Creatinine 4.87 0.55-1.40 mg/dL High 06-05-2017 [facility] (10269) Comment: Performed By: #### HEMDF, BM P3, PCAL ####[address] [place] [address] eGFR (black) 14.9 >60 mL/min Normal 06-05-2017 [facility] (62951) Comment: Performed By: #### HEMDF, BM P3, PCAL ####[address] [place] [address] eGFR (non-black) 12.3 >60 mL/min Normal 06-05-2017 [facility] (09645) Comment: Result Comment: Source- MDRD equation with creatinine calibration to IDMS(NKDEP)eGFR not recommen ded for drug dose adjustment Performed By: #### HEMDF, BM P3, PCAL ####[address] [place] [address] Anion gap 8 mmol/L Normal 06-05-2017 [facility] (08469) Comment: Performed By: #### HEMDF, BM P3, PCAL ####[address] [place] [address] Glucose mass conc 100 70-100 mg/dL Normal 06-05-2017 [facility] (15494) Comment: Performed By: #### HEMDF, BM P3, PCAL ####[address] [place] [address] Urea nitrogen 25 7-25 mg/dL Normal 06-05-2017 [facility] (18577) Comment: Performed By: #### HEMDF, BM P3, PCAL ####[address] [place] [address] Calcium 8.3 8.2-10.1 mg/dL Normal 06-05-2017 [facility] (66353) Comment: Performed By: #### HEMDF, BM P3, PCAL ####[address] [place] [address] CO2 27 21-32 mmol/L Normal 06-05-2017 [facility] (46775) Comment: Performed By: #### HEMDF, BM P3, PCAL ####[address] [place] [address] Chloride 105 98-109 mmol/L Normal 06-05-2017 [facility] (61409) Comment: Performed By: #### HEMDF, BM P3, PCAL ####[address] [place] [address] Potassium molar conc 3.9 3.5-5.1 mmol/L Normal 7 [facility] (64612) Comment: Performed By: #### HEMDF, BM P3, PCAL ####[address] [place] [address] Sodium 140 135-145 mmol/L Normal 06-05-2017 [facility] (08080) Comment: Performed By: #### HEMDF, BM P3, PCAL ####[address] [place] [address] vancomycin on 06-04 Vancomycin 40.3 15.0-20.0 ug/mL High 06-04-2017 [facility] (90778) Comment: Result Comment: . Performed By: #### HEMDF, BM P3, PCAL ####[address] [place] [address] iron on 2017-06-04 Iron, Total 55 65-175 ug/dL Low 06-04-2017 [facility] (68513) Comment: Performed By: #### HEMDF, BM P3, PCAL ####[address] [place] [address] Saturation 31 15-50 % Normal 06-04-2017 [facility] (28254) Comment: Performed By: #### HEMDF, BM P3, PCAL ####[address] [place] [address] Total Iron Binding Cap. 177 250-450 ug/dL Low 2016 [facility] (17112) Comment: Performed By: #### HEMDF, BM P3, PCAL ####[address] [place] [address] hemogram w/ autodiff on 2017-06-04 Abs Baso Cnt 0.0 0.0-0.2 10*3/uL Normal 06-04-2017 [facility] (28097) Comment: Performed By: #### HEMDF, BM P3, PCAL ####[address] [place] [address] Basophils/100 WBC Auto (Bld) 0.4 % Normal 0 06-04-2017 [facility] (77509) Comment: Performed By: #### HEMDF, BM P3, PCAL ####[address] [place] [address] Eosinophils 0.1 0.0-0.5 10*3/uL Normal 06-04-2017 [facility] (50157) Comment: Performed By: #### HEMDF, BM P3, PCAL ####[address] [place] [address] Eosinophils/100 leukocytes 2.1 % Normal [facility] (67401) Comment: Performed By: #### HEMDF, BM P3, PCAL ####[address] [place] [address] Erythrocyte distribution 16.2 11.5-14.5 % High 06-04 [facility] width Auto Ratio (RBC) (91614) Comment: Performed By: #### HEMDF, BM P3, PCAL ####[address] [place] [address] Erythrocytes (RBC) 2.16 4.40-5.90 10*6/uL Low 06-04-2017 [facility] (96823) Comment: Performed By: #### HEMDF, BM P3, PCAL ####[address] [address] Granulocytes/100 WBC (Bld) 62.7 % Normal [facility] (59286) Comment: Performed By: #### HEMDF, BM P3, PCAL ####[address] [place] [address] Hematocrit (HCT) 21.8 40.0-52.0 % Low 06-04-2017 [facility] (77400) Comment: Performed By: #### HEMDF, BM P3, PCAL ####[address] [place] [address] Hemoglobin mass conc (Bld) 7.5 13.0-18.0 g/dL Low [facility] (33740) Comment: Performed By: #### HEMDF, BM P3, PCAL ####[address] [place] [address] Lymphocytes 1.1 1.0-4.3 10*3/uL Normal 06-04-2017 [facility] (59286) Comment: Performed By: #### HEMDF, BM P3, PCAL ####[address] [place] [address] Lymphocytes/100 leukocytes 24.6 % Normal [facility] (10453) Comment: Performed By: #### HEMDF, BM P3, PCAL ####[address] [place] [address] MCH 34.9 26.0-34.0 pg High 06-04-2017 [facility] (41852) Comment: Performed By: #### HEMDF, BM P3, PCAL ####[address] [place] [address] MCHC mass conc (RBC) 34.4 32.0-36.0 % Normal 7 [facility] (26702) Comment: Performed By: #### HEMDF, BM P3, PCAL ####[address] [place] [address] MCV 101.3 80.0-98.0 fL High 06-04-2017 [facility] (08629) Comment: Performed By: #### HEMDF, BM P3, PCAL ####[address] [place] [address] Monocytes 0.4 0.0-0.8 10*3/uL Normal 06-04-2017 [facility] (66647) Comment: Performed By: #### HEMDF, BM P3, PCAL ####[address] [place] [address] Monocytes/100 leukocytes 10.2 % Normal 06-04 [facility] (93817) Comment: Performed By: #### HEMDF, BM P3, PCAL ####[address] [place] [address] Neutrophils 2.8 1.8-7.0 10*3/uL Normal 06-04-2017 [facility] (45450) Comment: Performed By: #### HEMDF, BM P3, PCAL ####[address] [place] [address] Platelet mean volume (PMV) 8.8 7.4-10.4 fL Normal [facility] (06745) Comment: Performed By: #### HEMDF, BM P3, PCAL ####[address] [place] [address] Platelets 91 140-440 10*3/uL Low 06-04-2017 [facility] (01094) Comment: Performed By: #### HEMDF, BM P3, PCAL ####[address] [place] [address] WBC (Leukocytes) 4.4 3.6-10.7 10*3/uL Normal 06-04-2017 [facility] (12660) Comment: Performed By: #### HEMDF, BM P3, PCAL ####[address] [place] [address] glucose,bedside on 2017-06-04 Glucose mass conc 144 70-100 mg/dL High 06-04-2017 [facility] (31290) Comment: Result Comment: Test perform ed by glucose meter. Results may be 10%-15% lowerthan serum/plasma value s. (CLIA ID [id number]) Performed By: #### HEMDF, BM P3, PCAL ####[address] [place] [address] Glucose mass conc 128 70-100 mg/dL High 06-04-2017 [facility] (28834) Comment: Result Comment: Test perform ed by glucose meter. Results may be 10%-15% lowerthan serum/plasma value s. (CLIA ID [id number]) Performed By: #### HEMDF, BM P3, PCAL ####[address] [place] [address] Glucose mass conc 185 70-100 mg/dL High 06-04-2017 [facility] (09765) Comment: Result Comment: Test perform ed by glucose meter. Results may be 10%-15% lowerthan serum/plasma value s. (CLIA ID [id number]) Performed By: #### HEMDF, BM P3, PCAL ####[address] [place] [address] basic metabolic panel on 2017-06-04 Creatinine 3.67 0.55-1.40 mg/dL High 06-04-2017 [facility] (75674) Comment: Performed By: #### HEMDF, BM P3, PCAL ####[address] [place] [address] eGFR (black) 20.6 >60 mL/min Normal 06-04-2017 [facility] (25755) Comment: Performed By: #### HEMDF, BM P3, PCAL ####[address] [place] [address] eGFR (non-black) 17.0 >60 mL/min Normal 06-04-2017 [facility] (07989) Comment: Result Comment: Source- MDRD equation with creatinine calibration to IDMS(NKDEP)eGFR not recommen ded for drug dose adjustment Performed By: #### HEMDF, BM P3, PCAL ####[address] [place] [address] Anion gap 7 mmol/L Normal 06-04-2017 [facility] (97218) Comment: Performed By: #### HEMDF, BM P3, PCAL ####[address] [place] [address] CO2 29 21-32 mmol/L Normal 06-04-2017 [facility] (84464) Comment: Performed By: #### HEMDF, BM P3, PCAL ####[address] [place] [address] Glucose mass conc 91 70-100 mg/dL Normal 06-04-2017 [facility] (67910) Comment: Performed By: #### HEMDF, BM P3, PCAL ####[address] [place] [address] Urea nitrogen 18 7-25 mg/dL Normal 06-04-2017 [facility] (66305) Comment: Performed By: #### HEMDF, BM P3, PCAL ####[address] [place] [address] Calcium 8.5 8.2-10.1 mg/dL Normal 06-04-2017 [facility] (57201) Comment: Performed By: #### HEMDF, BM P3, PCAL ####[address] [place] [address] Chloride 104 98-109 mmol/L Normal 06-04-2017 [facility] (38191) Comment: Performed By: #### HEMDF, BM P3, PCAL ####[address] [place] [address] Potassium molar conc 4.0 3.5-5.1 mmol/L Normal 7 [facility] (37798) Comment: Performed By: #### HEMDF, BM P3, PCAL ####[address] [place] [address] Sodium 140 135-145 mmol/L Normal 06-04-2017 [facility] (24799) Comment: Performed By: #### HEMDF, BM P3, PCAL ####[address] [place] [address] iron on 2017-06-03 Saturation 22 15-50 % Normal 06-03-2017 [facility] (71077) Comment: Performed By: #### HEMDF, BM P3, PCAL ####[address] [place] [address] Total Iron Binding Cap. 181 250-450 ug/dL Low 2016 [facility] (44221) Comment: Performed By: #### HEMDF, BM P3, PCAL ####[address] [place] [address] Iron, Total 40 65-175 ug/dL Low 06-03-2017 [facility] (90493) Comment: Performed By: #### HEMDF, BM P3, PCAL ####[address] [place] [address] glucose,bedside on 2017-06-03 Glucose mass conc 125 70-100 mg/dL High 06-03-2017 [facility] (09260) Comment: Result Comment: Test perform ed by glucose meter. Results may be 10%-15% lowerthan serum/plasma value s. (CLIA ID [id number]) Performed By: #### HEMDF, BM P3, PCAL ####[address] [place] [address] Glucose mass conc 202 70-100 mg/dL High 06-03-2017 [facility] ([id number]) Comment: Result Comment: Test perform ed by glucose meter. Results may be 10%-15% lowerthan serum/plasma value s. (CLIA ID [id number]) Performed By: #### HEMDF, BM P3, PCAL ####[place] [address] [place] [address] Glucose mass conc 122 70-100 mg/dL High 06-03-2017 [facility] ([id number]) Comment: Result Comment: Test perform ed by glucose meter. Results may be 10%-15% lowerthan serum/plasma value s. (CLIA ID [id number]) Performed By: #### HEMDF, BM P3, PCAL ####[place] [address] [place] [address] eosinophils,ur on Eosinophils Urine NO EOSINS SEEN Normal [facility] ([id number]) Comment: Performed By: #### HEMDF, BM P3, PCAL ####[place] [address] [place] [address] Epithelial Cells,Ur RARE Normal 06-03-2017 [facility] ([id number]) Comment: Performed By: #### HEMDF, BM P3, PCAL ####[place] [address] [place] [address] PMNS Ur FEW Normal 06-03-2017 [facility] ([id number]) Comment: Performed By: #### HEMDF, BM P3, PCAL ####[place] [address] [place] [address] basic metabolic panel on 2017-06-03 Urea nitrogen 25 7-25 mg/dL Normal 06-03-2017 [facility] ([id number]) Comment: Performed By: #### HEMDF, BM P3, PCAL ####[place] [address] [place], [place] [address] Anion gap 7 mmol/L Normal 06-03-2017 [facility] (15843) Comment: Performed By: #### HEMDF, BM P3, PCAL ####[address] [place] [address] Creatinine 4.20 0.55-1.40 mg/dL High 06-03-2017 [facility] (58133) Comment: Performed By: #### HEMDF, BM P3, PCAL ####[address] [place] [address] eGFR (black) 17.6 >60 mL/min Normal 06-03-2017 [facility] (37757) Comment: Performed By: #### HEMDF, BM P3, PCAL ####[address] [place] [address] eGFR (non-black) 14.6 >60 mL/min Normal 06-03-2017 [facility] (77785) Comment: Result Comment: Source- MDRD equation with creatinine calibration to IDMS(NKDEP)eGFR not recommen ded for drug dose adjustment Performed By: #### HEMDF, BM P3, PCAL ####[address] [place] [address] Glucose mass conc 136 70-100 mg/dL High 06-03-2017 [facility] (44597) Comment: Performed By: #### HEMDF, BM P3, PCAL ####[address] [place] [address] Calcium 8.0 8.2-10.1 mg/dL Low 06-03-2017 [facility] (96612) Comment: Performed By: #### HEMDF, BM P3, PCAL ####[place] [place] [address] Chloride 104 98-109 mmol/L Normal 06-03-2017 [facility] (87201) Comment: Performed By: #### HEMDF, BM P3, PCAL ####[address] [place] [address] Potassium molar conc 4.3 3.5-5.1 mmol/L Normal 7 [facility] [employer] [facility] (56628) Comment: Performed By: #### HEMDF, BM P3, PCAL ####[address] [place] [address] Sodium 137 135-145 mmol/L Normal 06-03-2017 [facility] (14487) Comment: Performed By: #### HEMDF, BM P3, PCAL ####[address] [place] [address] CO2 26 21-32 mmol/L Normal 06-03-2017 [facility] (21702) Comment: Performed By: #### HEMDF, BM P3, PCAL ####[address] [place] [address] glucose,bedside on 2017-06-02 Glucose mass conc 147 70-100 mg/dL High 06-02-2017 [facility] (69866) Comment: Result Comment: Test perform ed by glucose meter. Results may be 10%-15% lowerthan serum/plasma value s. (CLIA ID [id number]) Performed By: #### HEMDF, BM P3, PCAL ####[address] [place] [address] Glucose mass conc 135 70-100 mg/dL High 06-02-2017 [facility] (72510) Comment: Result Comment: Test perform ed by glucose meter. Results may be 10%-15% lowerthan serum/plasma value s. (CLIA ID [id number]) Performed By: #### HEMDF, BM P3, PCAL ####[address] [place] [address] Glucose mass conc 125 70-100 mg/dL High 06-02-2017 [facility] (66094) Comment: Result Comment: Test perform ed by glucose meter. Results may be 10%-15% lowerthan serum/plasma value s. (CLIA ID [id number]) Performed By: #### HEMDF, BM P3, PCAL ####[address] [place] [address] Glucose mass conc 133 70-100 mg/dL High 06-02-2017 [facility] [employer] [facility] (62427) Comment: Result Comment: Test perform ed by glucose meter. Results may be 10%-15% lowerthan serum/plasma value s. (CLIA ID [id number]) Performed By: #### HEMDF, BM P3, PCAL ####[address] [place] [address] Glucose mass conc 164 70-100 mg/dL High 06-02-2017 [facility] [employer] [facility] (41575) Comment: Result Comment: Test perform ed by glucose meter. Results may be 10%-15% lowerthan serum/plasma value s. (CLIA ID [id number]) Performed By: #### TSGL #### [address] [place] [address] basic metabolic panel on 2017-06-02 Creatinine 5.62 0.55-1.40 mg/dL High 06-02-2017 [facility] (01465) Comment: Performed By: #### TSGL #### [address] [place] [address] eGFR (black) 12.6 >60 mL/min Normal 06-02-2017 [facility] [address] (69618) Comment: Performed By: #### TSGL #### [address] [place] [address] eGFR (non-black) 10.4 >60 mL/min Normal 06-02-2017 [facility] [employer] [facility] (45347) Comment: Result Comment: Source- MDRD equation with creatinine calibration to IDMS(NKDEP)eGFR not recommen ded for drug dose adjustment Performed By: #### TSGL #### [address] [place] [address] Anion gap 7 mmol/L Normal 06-02-2017 [facility] (01882) Comment: Performed By: #### TSGL #### [address] [place] [address] Calcium 8.2 8.2-10.1 mg/dL Normal 06-02-2017 [facility] (51123) Comment: Performed By: #### TSGL #### [address] [place] [address] CO2 24 21-32 mmol/L Normal 06-02-2017 [facility] (17221) Comment: Performed By: #### TSGL #### [address] [place] [address] Glucose mass conc 104 70-100 mg/dL High 06-02-2017 [facility] (67025) Comment: Performed By: #### TSGL #### [address] [place] [address] Urea nitrogen 33 7-25 mg/dL High 06-02-2017 [facility] (72434) Comment: Performed By: #### TSGL #### [address] [place] [address] Chloride 107 98-109 mmol/L Normal 06-02-2017 [facility] (40498) Comment: Performed By: #### TSGL #### [address] [place] [address] Potassium molar conc 4.7 3.5-5.1 mmol/L Normal 7 [facility] (80592) Comment: Performed By: #### TSGL #### [address] [place] [address] Sodium 138 135-145 mmol/L Normal 06-02-2017 [facility] (51069) Comment: Performed By: #### TSGL #### [address] [place] [address] xa special angiography procedure on 2017-06-01 XA Special Patient Name: FOSTER, Normal 7 [facility]: System ([id number]) [id number] Special Procedures Exam Date/Time 06/01/2017 12:49:03 EDT Exam XA Special Angiography Procedure Ordering Physician MD DEONNA, EZEQUIEL Elizabeth Accession Number [id number] Reason For Exam tunnel dialysis catheter, initiating [...] Surface Ag NOT DETECTED Not-Detected Normal 017 [facility] (35033) Comment: Performed By: #### TSGL #### [address] [place] [address] glucose,bedside on 2017-06-01 Glucose mass conc 90 70-100 mg/dL Normal 06-01-2017 [facility] (85845) Comment: Result Comment: Test perform ed by glucose meter. Results may be 10%-15% lowerthan serum/plasma value s. (CLIA ID [id number]) Performed By: #### TSGL #### [address] [place] [address] Glucose mass conc 90 70-100 mg/dL Normal 06-01-2017 [facility] (20261) Comment: Result Comment: Test perform ed by glucose meter. Results may be 10%-15% lowerthan serum/plasma value s. (CLIA ID [id number]) Performed By: #### TSGL #### [address] [place] [address] basic metabolic panel on 2017-06-01 Anion gap 9 mmol/L Normal 06-01-2017 [facility] (13811) Comment: Performed By: #### TSGL #### [address] [place] [address] Creatinine 6.80 0.55-1.40 mg/dL High 06-01-2017 [facility] (23870) Comment: Performed By: #### TSGL #### [address] [place] [address] eGFR (black) 10.1 >60 mL/min Normal 06-01-2017 [facility] (05932) Comment: Performed By: #### TSGL #### [address] [place] [address] eGFR (non-black) 8.3 >60 mL/min Normal 06-01-2017 [facility] (39107) Comment: Result Comment: Source- MDRD equation with creatinine calibration to IDMS(NKDEP)eGFR not recommen ded for drug dose adjustment Performed By: #### TSGL #### [address] [place] [address] Urea nitrogen 37 7-25 mg/dL High 06-01-2017 [facility] (16817) Comment: Performed By: #### TSGL #### [address] [place] [address] Calcium 8.6 8.2-10.1 mg/dL Normal 06-01-2017 [facility] (37512) Comment: Performed By: #### TSGL #### [address] [place] [address] CO2 21 21-32 mmol/L Normal 06-01-2017 [facility] (14371) Comment: Performed By: #### TSGL #### [address] [place] [address] Glucose mass conc 88 70-100 mg/dL Normal 06-01-2017 [facility] (05232) Comment: Performed By: #### TSGL #### [address] [place] [address] Chloride 107 98-109 mmol/L Normal 06-01-2017 [facility] (20934) Comment: Performed By: #### TSGL #### [address] [place] [address] Potassium molar conc 5.0 3.5-5.1 mmol/L Normal 7 [facility] (42285) Comment: Performed By: #### TSGL #### [address] [place] [address] Sodium 137 135-145 mmol/L Normal 06-01-2017 [facility] (27070) Comment: Performed By: #### TSGL #### [address] [place] [address] us paracentesis on 2017-05-31 US Paracentesis Patient Name: BECKY HUTCHISON Normal 05-31-2017 [facility]: ( 14055) [id number] Ultrasound Exam Date/Time 05/31/2017 13:45:17 EDT Exam US Paracentesis Initial Ordering Physician MD DEONNA, [facility] Accession Number [id number] CPT4 Codes 49485 () Reason For Exam ASCITES Report ULTRASOUND GUIDED PARACENTESIS: CLINICAL INDICATION: Ascites TECHNIQUE: Following discussion with the patient regarding risks, benefits and alternatives along with audible timeout to identify the patient, site and nature of the procedure, the skin was sterilely prepared and local anesthesia was applied. A 5 Serbian Yueh catheter was advanced under ultrasound guidance [...] RelTime (PPP) 1.1 0.9-1.1 {INR} Normal 017 [facility] (17254) Comment: Result Comment: Recommended Anticoagulant Therapy:SEE BELOW----- [...] to preventMyocardial In farction Performed By: #### FABRICE ALVA P3 ####[address] [place] [address] Prothrombin time (PT) Coag 11.4 9.0-12.0 s Normal [facility] time (PPP) (40489) Comment: Result Comment: . Performed By: #### FABRICE ALVA P3 ####[address] [place] [address] glucose,bedside on 2017-05-31 Glucose mass conc 95 70-100 mg/dL Normal 05-31-2017 [facility] (11113) Comment: Result Comment: Confirmation Drawn;Test performed by glucose meter. Results may be 10%-15% lowerthan ser um/plasma values. (CLIA ID [id number]) Performed By: #### TSGL #### [address] [place] [address] Glucose mass conc 111 70-100 mg/dL High 05-31-2017 [facility] (81523) Comment: Result Comment: Test perform ed by glucose meter. Results may be 10%-15% lowerthan serum/plasma value s. (CLIA ID [id number]) Performed By: #### TSGL #### [address] [place] [address] Glucose mass conc 119 70-100 mg/dL High 05-31-2017 [facility] (67330) Comment: Result Comment: Test perform ed by glucose meter. Results may be 10%-15% lowerthan serum/plasma value s. (CLIA ID [id number]) Performed By: #### FABRICE ALVA P3 ####[address] [place] [address] Glucose mass conc 104 70-100 mg/dL High 05-31-2017 [facility] (31879) Comment: Result Comment: Test perform ed by glucose meter. Results may be 10%-15% lowerthan serum/plasma value s. (CLIA ID [id number]) Performed By: #### HEMDF, BM P3 ####[address] [place] [id number] basic metabolic panel on 2017-05-31 Anion gap 10 mmol/L Normal 05-31-2017 [facility] (57470) Comment: Performed By: #### HEMDF, BM P3 ####[address] [place] [address] Creatinine 6.61 0.55-1.40 mg/dL High 05-31-2017 [facility] (23338) Comment: Performed By: #### HEMDF, BM P3 ####[address] [place] [address] eGFR (black) 10.5 >60 mL/min Normal 05-31-2017 [facility] (32486) Comment: Performed By: #### HEMDF, BM P3 ####[address] [place] [address] eGFR (non-black) 8.6 >60 mL/min Normal 05-31-2017 [facility] (14383) Comment: Result Comment: Source- MDRD equation with creatinine calibration to IDMS(NKDEP)eGFR not recommen ded for drug dose adjustment Performed By: #### HEMDF, BM P3 ####[address] [place] [address] Glucose mass conc 81 70-100 mg/dL Normal 05-31-2017 [facility] (22422) Comment: Performed By: #### HEMDF, BM P3 ####[address] [place] [address] Urea nitrogen 36 7-25 mg/dL High 05-31-2017 [facility] (93813) Comment: Performed By: #### HEMDF, BM P3 ####[address] [place] [address] Calcium 8.3 8.2-10.1 mg/dL Normal 05-31-2017 [facility] (26123) Comment: Performed By: #### FABRICE ALVA P3 ####[address] [place] [address] Chloride 110 98-109 mmol/L High 05-31-2017 [facility] (94581) Comment: Performed By: #### FABRICE ALVA P3 ####[address] [place] [address] Potassium molar conc 4.9 3.5-5.1 mmol/L Normal 7 [facility] [employer] [facility] (09460) Comment: Performed By: #### FABRICE ALVA P3 ####[address] [place] [address] Sodium 142 135-145 mmol/L Normal 05-31-2017 [facility] (37046) Comment: Performed By: #### FABRICE ALVA P3 ####[address] [place] [address] CO2 22 21-32 mmol/L Normal 05-31-2017 [facility] (65870) Comment: Performed By: #### FABRICE ALVA P3 ####[address] [place] [address] vancomycin on 05-30 Vancomycin 92.7 15.0-20.0 ug/mL High 05-30-2017 [facility] (23158) Comment: Result Comment: . Performed By: #### NIDA BM P3 ####[address] [place] [address] glucose,bedside on 2017-05-30 Glucose mass conc 196 70-100 mg/dL High 05-30-2017 [facility] (75221) Comment: Result Comment: Test perform ed by glucose meter. Results may be 10%-15% lowerthan serum/plasma value s. (CLIA ID [id number]) Performed By: #### NIDA BM P3 ####[address] [place] [address] Glucose mass conc 165 70-100 mg/dL High 05-30-2017 [facility] (66151) Comment: Result Comment: Test perform ed by glucose meter. Results may be 10%-15% lowerthan serum/plasma value s. (CLIA ID [id number]) Performed By: #### HEMDF, BM P3 ####[address] [place] [address] Glucose mass conc 128 70-100 mg/dL High 05-30-2017 [facility] (18307) Comment: Result Comment: Test perform ed by glucose meter. Results may be 10%-15% lowerthan serum/plasma value s. (CLIA ID [id number]) Performed By: #### HEMDF, BM P3 ####[address] [place] [address] Glucose mass conc 91 70-100 mg/dL Normal 05-30-2017 [facility] (72106) Comment: Result Comment: Test perform ed by glucose meter. Results may be 10%-15% lowerthan serum/plasma value s. (CLIA ID [id number]) Performed By: #### HEMDF, BM P3 ####[address] [place] [address] Glucose mass conc 118 70-100 mg/dL High 05-30-2017 [facility] (22926) Comment: Result Comment: Test perform ed by glucose meter. Results may be 10%-15% lowerthan serum/plasma value s. (CLIA ID [id number]) Performed By: #### HEMDF, BM P3 ####[address] [place] [address] basic metabolic panel on 2017-05-30 Anion gap 11 mmol/L Normal 05-30-2017 [facility] (13702) Comment: Performed By: #### HEMDF, BM P3 ####[address] [place] [address] Creatinine 5.59 0.55-1.40 mg/dL High 05-30-2017 [facility] (68597) Comment: Performed By: #### HEMDF, BM P3 ####[address] [place] [address] eGFR (black) 12.7 >60 mL/min Normal 05-30-2017 [facility] (33758) Comment: Performed By: #### HEMDF, BM P3 ####[address] [place] [address] eGFR (non-black) 10.5 >60 mL/min Normal 05-30-2017 [facility] (16728) Comment: Result Comment: Source- MDRD equation with creatinine calibration to IDMS(NKDEP)eGFR not recommen ded for drug dose adjustment Performed By: #### HEMDF, BM P3 ####[address] [place] [address] CO2 19 21-32 mmol/L Low 05-30-2017 [facility] (80858) Comment: Performed By: #### HEMDF, BM P3 ####[address] [place] [address] Glucose mass conc 78 70-100 mg/dL Normal 05-30-2017 [facility] (05266) Comment: Performed By: #### HEMDF, BM P3 ####[address] [place] [address] Urea nitrogen 34 7-25 mg/dL High 05-30-2017 [facility] (05215) Comment: Performed By: #### HEMDF, BM P3 ####[address] [place] [address] Calcium 7.6 8.2-10.1 mg/dL Low 05-30-2017 [facility] (91803) Comment: Performed By: #### HEMDF, BM P3 ####[address] [place] [address] Chloride 111 98-109 mmol/L High 05-30-2017 [facility] (93701) Comment: Performed By: #### HEMDF, BM P3 ####[address] [place] [address] Potassium molar conc 4.6 3.5-5.1 mmol/L Normal 7 [facility] (02909) Comment: Performed By: #### HEMDF, BM P3 ####[facility] [place] [address] Sodium 141 135-145 mmol/L Normal 05-30-2017 [facility] (47449) Comment: Performed By: #### HEMDF, BM P3 ####[address] [place] [address] vancomycin on 05-29 Vancomycin 106.3 15.0-20.0 ug/mL High 05-29-2017 [facility] (10097) Comment: Result Comment: . Performed By: #### HEMDF, BM P3 ####[address] [place] [address] us retroperitoneal complete on 2017-05-29 US Retroperitoneal Patient Name: FOSTER, Normal 0 05-29-2017 [facility] (69360) Ultrasound Exam Date/Time 05/29/2017 19:53:39 EDT Exam US Retroperitoneal Complete Ordering Physician MD YARY, VIANEY Peña Accession Number [id number] CPT4 Codes 57128 () Reason For Exam RENAL FAILURE, ACUTE [...] 2016 Lactate 1.2 0.4-2.0 mmol/L Normal 05-29-2017 [facility] (22518) Comment: Performed By: #### HEMDF, BM P3 ####[address] [place] [address] hemogram w/ autodiff on 2017-05-29 Abs Baso Cnt 0.0 0.0-0.2 10*3/uL Normal 05-29-2017 [facility] (16685) Comment: Performed By: #### HEMDF, BM P3 ####[address] [place] [address] Basophils/100 WBC Auto (Bld) 0.2 % Normal 0 05-29-2017 [facility] (70881) Comment: Performed By: #### HEMDF, BM P3 ####[address] [place] [address] Eosinophils 0.1 0.0-0.5 10*3/uL Normal 05-29-2017 [facility] (44926) Comment: Performed By: #### HEMDF, BM P3 ####[address] [place] [address] Eosinophils/100 leukocytes 1.1 % Normal [facility] (78885) Comment: Performed By: #### HEMDF, BM P3 ####[address] [place] [address] Erythrocyte distribution 15.8 11.5-14.5 % High 05-29 [facility] width Auto Ratio (RBC) (58914) Comment: Performed By: #### HEMDF, BM P3 ####[address] [place] [address] Erythrocytes (RBC) 2.04 4.40-5.90 10*6/uL Low 05-29-2017 [facility] (68733) Comment: Performed By: #### HEMDF, BM P3 ####[address] [place] [address] Granulocytes/100 WBC (Bld) 66.5 % Normal [facility] (04014) Comment: Performed By: #### HEMDF, BM P3 ####[address] [place] [address] Hematocrit (HCT) 20.7 40.0-52.0 % Low 05-29-2017 [facility] (38029) Comment: Performed By: #### HEMDF, BM P3 ####[address] [address] Hemoglobin mass conc (Bld) 7.1 13.0-18.0 g/dL Low [facility] (99285) Comment: Performed By: #### HEMDF, BM P3 ####[address] [address] Lymphocytes 1.1 1.0-4.3 10*3/uL Normal 05-29-2017 [facility] (92817) Comment: Performed By: #### HEMDF, BM P3 ####[address] [address] Lymphocytes/100 leukocytes 20.4 % Normal [facility] (86978) Comment: Performed By: #### HEMDF, BM P3 ####[address] [place] [address] MCH 34.6 26.0-34.0 pg High 05-29-2017 [facility] (88072) Comment: Performed By: #### HEMDF, BM P3 ####[address] [address] MCHC mass conc (RBC) 34.1 32.0-36.0 % Normal [address] [place] [address] (74868) Comment: Performed By: #### HEMDF, BM P3 ####[address] [place] [address] MCV 101.4 80.0-98.0 fL High 05-29-2017 [facility] (41807) Comment: Performed By: #### FABRICE ALVA P3 ####[address] [place] [address] Monocytes 0.7 0.0-0.8 10*3/uL Normal 05-29-2017 [facility] (81716) Comment: Performed By: #### FABRICE LAVA P3 ####[address] [place] [address] Monocytes/100 leukocytes 11.8 % Normal 05-29 [facility] (37321) Comment: Performed By: #### FABRICE ALVA P3 ####[address] [place] [address] Neutrophils 3.7 1.8-7.0 10*3/uL Normal 05-29-2017 [facility] (79958) Comment: Performed By: #### FABRICE ALVA P3 ####[place] [address] [place] [address] Platelet mean volume (PMV) 9.3 7.4-10.4 fL Normal [facility] (56452) Comment: Performed By: #### FABRICE ALVA P3 ####[place] [address] [place] [address] Platelets 102 140-440 10*3/uL Low 05-29-2017 [facility] (89061) Comment: Performed By: #### HEMRADHA BM P3 ####[address] [place] [address] WBC (Leukocytes) 5.6 3.6-10.7 10*3/uL Normal 05-29-2017 [facility] (34095) Comment: Performed By: #### HEMRADHA BM P3 ####[address] [place] [address] glucose,bedside on 2017-05-29 Glucose mass conc 212 70-100 mg/dL High 05-29-2017 [facility] (49408) Comment: Result Comment: Test perform ed by glucose meter. Results may be 10%-15% lowerthan serum/plasma value s. (CLIA ID [id number]) Performed By: #### HEMDF, BM P3 ####[address] [place] [address] Glucose mass conc 131 70-100 mg/dL High 05-29-2017 [facility] (36331) Comment: Result Comment: Test perform ed by glucose meter. Results may be 10%-15% lowerthan serum/plasma value s. (CLIA ID [id number]) Performed By: #### HEMDF, BM P3 ####[address] [place] [address] Glucose mass conc 156 70-100 mg/dL High 05-29-2017 [facility] (24782) Comment: Result Comment: Test perform ed by glucose meter. Results may be 10%-15% lowerthan serum/plasma value s. (CLIA ID [id number]) Performed By: #### HEMDF, BM P3 ####[address] [place] [address] Glucose mass conc 129 70-100 mg/dL High 05-29-2017 [facility] (66757) Comment: Result Comment: Test perform ed by glucose meter. Results may be 10%-15% lowerthan serum/plasma value s. (CLIA ID [id number]) Performed By: #### HEMDF, BM P3 ####[address] [place] [address] basic metabolic panel on 2017-05-29 Anion gap 6 mmol/L Normal 05-29-2017 [facility] (39844) Comment: Performed By: #### HEMDF, BM P3 ####[address] [place] [address] Creatinine 5.61 0.55-1.40 mg/dL High 05-29-2017 [facility] (45237) Comment: Performed By: #### HEMDF, BM P3 ####[address] [place] [address] eGFR (black) 12.6 >60 mL/min Normal 05-29-2017 [facility] (53199) Comment: Performed By: #### HEMRADHA BM P3 ####[address] [place] [address] eGFR (non-black) 10.4 >60 mL/min Normal 05-29-2017 [facility] (27248) Comment: Result Comment: Source- MDRD equation with creatinine calibration to IDMS(NKDEP)eGFR not recommen ded for drug dose adjustment Performed By: #### HEMRADHA BM P3 ####[address] [place] [address] CO2 24 21-32 mmol/L Normal 05-29-2017 [facility] (19796) Comment: Performed By: #### HEMRADHA BM P3 ####[address] [place] [address] Glucose mass conc 116 70-100 mg/dL High 05-29-2017 [facility] (53427) Comment: Performed By: #### HEMRADHA BM P3 ####[address] [place] [address] Urea nitrogen 30 7-25 mg/dL High 05-29-2017 [facility] (77744) Comment: Performed By: #### HEMRADHA BM P3 ####[address] [place] [address] Calcium 8.3 8.2-10.1 mg/dL Normal 05-29-2017 [facility] ([id number]) Comment: Performed By: #### HEMDF BM P3 ####[address] [place] [address] Chloride 103 98-109 mmol/L Normal 05-29-2017 [facility] (26863) Comment: Performed By: #### HEMDF, BM P3 ####[address] [place] [address] Potassium molar conc 4.4 3.5-5.1 mmol/L Normal 7 [facility] (84330) Comment: Performed By: #### HEMDF, BM P3 ####[address] [place] [address] Sodium 133 135-145 mmol/L Low 05-29-2017 [facility] (22396) Comment: Performed By: #### HEMDF, BM P3 ####[address] [place] [address] urinalysis,macro on 2017-05-28 Bilirubin (direct) NEG Negative mg/dL Normal 05-28-2017 [facility] (43938) Comment: Performed By: #### BGLU #### [address] [place] [address] Ketone,Urine NEG Negative Normal 05-28-2017 [facility] (68035) Comment: Performed By: #### BGLU #### [address] [place] [address] Occult Blood,Ur NEG Negative Normal 05-28-2017 [facility] (74169) Comment: Performed By: #### BGLU #### [address] [place] [address] Specific [place],Urine 1.005 1.005-1.030 Normal 05-28 [facility] (47068) Comment: Performed By: #### BGLU #### [address] [place] [address] Total Protein,Urine NEG Negative Normal 05-28-2017 [facility] (79840) Comment: Performed By: #### BGLU #### [address] [place] [address] Urine, appearance clear Clear Normal 05-28-2017 [facility] (02683) Comment: Performed By: #### BGLU #### [address] [place] [address] Urine, color yellow Lt. Yellow Normal 05-28-2017 [facility] (49603) Comment: Performed By: #### BGLU #### [address] [place] [address] Urine, glucose presence NORM Negative Normal 2016 [facility] (80619) Comment: Performed By: #### BGLU #### [address] [place] [address] Urine, nitrite presence NEG Negative Normal 2016 [facility] (80251) Comment: Performed By: #### BGLU #### [address] [place] [address] Urine, pH 5.0 5.0-8.0 [pH] Normal 05-28-2017 [facility] (00373) Comment: Performed By: #### BGLU #### [address] [place] [address] Urine, urobilinogen NORM 0-1 Normal 05-28-2017 [facility] (26730) Comment: Performed By: #### BGLU #### [address] [place] [address] WBC (Leukocytes) NEG Negative 10*3/uL Normal 05-28-2017 [facility] (72962) Comment: Performed By: #### BGLU #### [address] [place] [address] troponin i on 05-28 Troponin I.cardiac < 0.015 0.000-0.045 ng/mL Normal 7 [facility] mass conc (33456) Comment: Result Comment: 0.046 - 0.40 0 = Indeterminate> 0.400 = Consider Myocardial Injury Performed By: #### BGLU #### [address] [place] [address] sodium, ur random o n 2017-05-28 Sodium 21 No Range mmol/L Normal 05-28-2017 [facility] (57964) Comment: Performed By: #### BGLU #### [address] [place] [address] protein, ur random on 2017-05-28 Protein, Ur Random 9 No Range mg/dL Normal 05-28-2017 [facility] (56983) Comment: Performed By: #### BGLU #### [address] [place] [address] hemogram w/ autodiff on 2017-05-28 Abs Baso Cnt 0.0 0.0-0.2 10*3/uL Normal 05-28-2017 [facility] (86408) Comment: Performed By: #### BGLU #### [address] [place] [address] Basophils/100 WBC Auto (Bld) 0.3 % Normal 0 05-28-2017 [facility] (39356) Comment: Performed By: #### BGLU #### [address] [place] [address] Eosinophils 0.1 0.0-0.5 10*3/uL Normal 05-28-2017 [facility] (55598) Comment: Performed By: #### BGLU #### [address] [place] [address] Eosinophils/100 leukocytes 0.8 % Normal [facility] (93028) Comment: Performed By: #### BGLU #### [address] [place] [address] Erythrocyte distribution 15.9 11.5-14.5 % High 05-28 [facility] width Auto Ratio (RBC) (38041) Comment: Performed By: #### BGLU #### [address] [place] [address] Erythrocytes (RBC) 2.17 4.40-5.90 10*6/uL Low 05-28-2017 [facility] (76314) Comment: Performed By: #### BGLU #### [address] [place] [address] Granulocytes/100 WBC (Bld) 76.3 % Normal [facility] (05242) Comment: Performed By: #### BGLU #### [address] [place] [address] Hematocrit (HCT) 21.6 40.0-52.0 % Low 05-28-2017 [facility] (44705) Comment: Performed By: #### BGLU #### [address] [place] [address] Hemoglobin mass conc (Bld) 7.6 13.0-18.0 g/dL Low [facility] (60894) Comment: Performed By: #### BGLU #### [address] [place] [address] Lymphocytes 0.9 1.0-4.3 10*3/uL Low 05-28-2017 [facility] (68634) Comment: Performed By: #### BGLU #### [address] [place] [address] Lymphocytes/100 leukocytes 14.3 % Normal [facility] (35623) Comment: Performed By: #### BGLU #### [address] [place] [address] MCH 34.9 26.0-34.0 pg High 05-28-2017 [facility] (60559) Comment: Performed By: #### BGLU #### [address] [place] [address] MCHC mass conc (RBC) 35.0 32.0-36.0 % Normal 7 [facility] (55655) Comment: Performed By: #### BGLU #### [address] [place] [address] MCV 99.6 80.0-98.0 fL High 05-28-2017 [facility] (67642) Comment: Performed By: #### BGLU #### [address] [place] [address] Monocytes 0.5 0.0-0.8 10*3/uL Normal 05-28-2017 [facility] (33640) Comment: Performed By: #### BGLU #### [address] [place] [address] Monocytes/100 leukocytes 8.3 % Normal 05-28 [facility] (46543) Comment: Performed By: #### BGLU #### [address] [place] [address] Neutrophils 5.0 1.8-7.0 10*3/uL Normal 05-28-2017 [facility] (11411) Comment: Performed By: #### BGLU #### [address] [place] [address] Platelet mean volume (PMV) 9.0 7.4-10.4 fL Normal [facility] (68201) Comment: Performed By: #### BGLU #### [address] [place] [address] Platelets 107 140-440 10*3/uL Low 05-28-2017 [facility] (61871) Comment: Performed By: #### BGLU #### [address] [place] [address] WBC (Leukocytes) 6.6 3.6-10.7 10*3/uL Normal 05-28-2017 [facility] (78196) Comment: Performed By: #### BGLU #### [address] [place] [address] hemoglobin a1c on 2 Glucose mass conc 105 mg/dL Normal 05-28-2017 [facility] (83071) Comment: Performed By: #### BGLU #### [address] [place] [address] Hemoglobin A1c/Hemoglobin.total 5.3 4.0-5.6 % Normal 05-28-2017 [facility] mass fraction (Bld) (47552) Comment: Result Comment: --HgbA1C lev els may not be accurate in patients who haverenal disease, received recent blood transfusions, are anemic,or who have dyshemoglobinemia. Performed By: #### BGLU #### [address] [place] [address] glucose,bedside on 2017-05-28 Glucose mass conc 144 70-100 mg/dL High 05-28-2017 [facility] (56181) Comment: Result Comment: Test perform ed by glucose meter. Results may be 10%-15% lowerthan serum/plasma value s. (CLIA ID [id number]) Performed By: #### BGLU #### [address] [place] [address] Glucose mass conc 92 70-100 mg/dL Normal 05-28-2017 [facility] (36486) Comment: Result Comment: Test perform ed by glucose meter. Results may be 10%-15% lowerthan serum/plasma value s. (CLIA ID [id number]) Performed By: #### BGLU #### [address] [place] [address] creatinine, ur random on 2017-05-28 Creatinine 23.9 No Range mg/dL Normal 05-28-2017 [facility] (15226) Comment: Performed By: #### BGLU #### [address] [place] [address] comp metabolic panel on 2017-05-28 Alkaline phosphatase (ALP) 229 45-117 U/L High [facility] (11301) Comment: Performed By: #### BGLU #### [address] [place] [address] Protein 6.3 6.4-8.2 g/dL Low 05-28-2017 [facility] (41131) Comment: Performed By: #### BGLU #### [address] [place] [address] Bilirubin (total) 0.9 0.2-1.0 mg/dL Normal 05-28-2017 [facility] (18075) Comment: Performed By: #### BGLU #### [address] [place] [address] Alanine aminotransferase (ALT) 23 12-78 U/L Normal 05-28-2017 [facility] (58245) Comment: Performed By: #### BGLU #### [address] [place] [address] Aspartate aminotransferase (AST) 29 15-37 U/L Normal 05-28-2017 [facility] (22035) Comment: Performed By: #### BGLU #### [address] [place] [address] Creatinine 5.36 0.55-1.40 mg/dL High 05-28-2017 [facility] (19041) Comment: Performed By: #### BGLU #### [address] [place] [address] eGFR (black) 13.3 >60 mL/min Normal 05-28-2017 [facility] (80328) Comment: Performed By: #### BGLU #### [address] [place] [address] eGFR (non-black) 11.0 >60 mL/min Normal 05-28-2017 [facility] (02101) Comment: Result Comment: Source- MDRD equation with creatinine calibration to IDMS(NKDEP)eGFR not recommen ded for drug dose adjustment Performed By: #### BGLU #### [address] [place] [address] Anion gap 13 mmol/L Normal 05-28-2017 [facility] (83539) Comment: Performed By: #### BGLU #### [address] [place] [address] Glucose mass conc 128 70-100 mg/dL High 05-28-2017 [facility] (41395) Comment: Performed By: #### BGLU #### [address] [place] [address] CO2 21 21-32 mmol/L Normal 05-28-2017 [facility] (30201) Comment: Performed By: #### BGLU #### [address] [place] [address] Albumin 2.3 3.4-5.0 g/dL Low 05-28-2017 [facility] (31487) Comment: Performed By: #### BGLU #### [address] [place] [address] Calcium 8.4 8.2-10.1 mg/dL Normal 05-28-2017 [facility] (52895) Comment: Performed By: #### BGLU #### [address] [place] [address] Urea nitrogen 29 7-25 mg/dL High 05-28-2017 [facility] (02163) Comment: Performed By: #### BGLU #### [address] [address] Chloride 100 98-109 mmol/L Normal 05-28-2017 [facility] (76296) Comment: Performed By: #### BGLU #### [address] [address] Potassium molar conc 4.6 3.5-5.1 mmol/L Normal 7 [facility] [employer] [facility] (39094) Comment: Performed By: #### BGLU #### [address] [address] Sodium 134 135-145 mmol/L Low 05-28-2017 [facility] (51217) Comment: Performed By: #### BGLU #### [address] [address] hemogram w/ autodiff on 2017-05-22 Abs Baso Cnt 0.0 0.0-0.2 10*3/uL Normal 05-22-2017 [facility] (85126) Comment: Performed By: #### BGLU #### [address] [address] Basophils/100 WBC Auto (Bld) 0.3 % Normal 0 05-22-2017 [facility] (99042) Comment: Performed By: #### BGLU #### [address] [address] Eosinophils 0.2 0.0-0.5 10*3/uL Normal 05-22-2017 [facility] (36424) Comment: Performed By: #### BGLU #### [address] [address] Eosinophils/100 leukocytes 2.6 % Normal [facility] (55987) Comment: Performed By: #### BGLU #### [address] [address] Erythrocyte distribution 15.0 11.5-14.5 % High 05-22 [facility] width Auto Ratio (RBC) (68774) Comment: Performed By: #### BGLU #### [address] [place] [address] Erythrocytes (RBC) 2.22 4.40-5.90 10*6/uL Low 05-22-2017 [facility] (16227) Comment: Performed By: #### BGLU #### [address] [place] [address] Granulocytes/100 WBC (Bld) 65.6 % Normal [facility] (89167) Comment: Performed By: #### BGLU #### [address] [place] [address] Hematocrit (HCT) 22.0 40.0-52.0 % Low 05-22-2017 [facility] (13018) Comment: Performed By: #### BGLU #### [address] [address] Hemoglobin mass conc (Bld) 7.8 13.0-18.0 g/dL Low [facility] (07425) Comment: Performed By: #### BGLU #### [address] [address] Lymphocytes 1.4 1.0-4.3 10*3/uL Normal 05-22-2017 [facility] (86732) Comment: Performed By: #### BGLU #### [address] [address] Lymphocytes/100 leukocytes 22.6 % Normal [facility] (34461) Comment: Performed By: #### BGLU #### [address] [place] [address] MCH 35.1 26.0-34.0 pg High 05-22-2017 [facility] (54465) Comment: Performed By: #### BGLU #### [address] [address] MCHC mass conc (RBC) 35.3 32.0-36.0 % Normal 7 [facility] (15836) Comment: Performed By: #### BGLU #### [address] [address] MCV 99.5 80.0-98.0 fL High 05-22-2017 [facility] (69298) Comment: Performed By: #### BGLU #### [place] [address] [place] [address] Monocytes 0.5 0.0-0.8 10*3/uL Normal 05-22-2017 [facility] (18740) Comment: Performed By: #### BGLU #### [address] [place] [address] Monocytes/100 leukocytes 8.9 % Normal 05-22 [facility] (36929) Comment: Performed By: #### BGLU #### [address] [place] [address] Neutrophils 4.1 1.8-7.0 10*3/uL Normal 05-22-2017 [facility] (02290) Comment: Performed By: #### BGLU #### [address] [place] [address] Platelet mean volume (PMV) 8.4 7.4-10.4 fL Normal [facility] (38054) Comment: Performed By: #### BGLU #### [address] [place] [address] Platelets 109 140-440 10*3/uL Low 05-22-2017 [facility] (25127) Comment: Performed By: #### BGLU #### [address] [place] [address] WBC (Leukocytes) 6.2 3.6-10.7 10*3/uL Normal 05-22-2017 [facility] (39309) Comment: Performed By: #### BGLU #### [address] [place] [address] glucose,bedside on 2017-05-22 Glucose mass conc 123 70-100 mg/dL High 05-22-2017 [facility] (26579) Comment: Result Comment: Test perform ed by glucose meter. Results may be 10%-15% lowerthan serum/plasma value s. (CLIA ID [id number]) Performed By: #### BGLU #### [address] [place] [address] Glucose mass conc 134 70-100 mg/dL High 05-22-2017 [facility] (78407) Comment: Result Comment: Test perform ed by glucose meter. Results may be 10%-15% lowerthan serum/plasma value s. (CLIA ID [id number]) Performed By: #### BGLU #### [address] [place] [address] basic metabolic panel on 2017-05-22 Anion gap 7 mmol/L Normal 05-22-2017 [facility] (79711) Comment: Performed By: #### BGLU #### [address] [place] [address] Creatinine 0.49 0.55-1.40 mg/dL Low 05-22-2017 [facility] (00062) Comment: Performed By: #### BGLU #### [address] [place] [address] eGFR (black) >60.0 >60 mL/min/{1.73_m2} Normal 05-22-2017 [facility] (88872) Comment: Performed By: #### BGLU #### [address] [place] [address] eGFR (non-black) >60.0 >60 mL/min/{1.73_m2} Normal 2016 [facility] (21153) Comment: Result Comment: Source- MDRD equation with creatinine calibration to IDMS(NKDEP)eGFR not recommen ded for drug dose adjustment Performed By: #### BGLU #### [address] [place] [address] Glucose mass conc 139 70-100 mg/dL High 05-22-2017 [facility] (89159) Comment: Performed By: #### BGLU #### [address] [place] [address] Urea nitrogen 4 7-25 mg/dL Low 05-22-2017 [facility] (40593) Comment: Performed By: #### BGLU #### [address] [place] [address] Calcium 7.7 8.2-10.1 mg/dL Low 05-22-2017 [facility] (24268) Comment: Performed By: #### BGLU #### [address] [place] [address] CO2 28 21-32 mmol/L Normal 05-22-2017 [facility] (77408) Comment: Performed By: #### BGLU #### [address] [place] [address] Chloride 100 98-109 mmol/L Normal 05-22-2017 [facility] (38710) Comment: Performed By: #### BGLU #### [address] [place] [address] Potassium molar conc 3.1 3.5-5.1 mmol/L Low 7 [facility] (65437) Comment: Performed By: #### BGLU #### [address] [place] [address] Sodium 135 135-145 mmol/L Normal 05-22-2017 [facility] (92529) Comment: Performed By: #### BGLU #### [address] [place] [address] hemogram w/ autodiff on 2017-05-21 Abs Baso Cnt 0.1 0.0-0.2 10*3/uL Normal 05-21-2017 [facility] (79978) Comment: Performed By: #### BGLU #### [address] [place] [address] Basophils/100 WBC Auto (Bld) 0.8 % Normal 0 05-21-2017 [facility] (29210) Comment: Performed By: #### BGLU #### [address] [place] [address] Eosinophils 0.2 0.0-0.5 10*3/uL Normal 05-21-2017 [facility] (34633) Comment: Performed By: #### BGLU #### [address] [place] [address] Eosinophils/100 leukocytes 1.9 % Normal [facility] (72026) Comment: Performed By: #### BGLU #### [address] [place] [address] Erythrocyte distribution 15.8 11.5-14.5 % High 05-21 [facility] width Auto Ratio (RBC) (50527) Comment: Performed By: #### BGLU #### [address] [place] [address] Erythrocytes (RBC) 2.32 4.40-5.90 10*6/uL Low 05-21-2017 [facility] (08750) Comment: Performed By: #### BGLU #### [address] [place] [address] Granulocytes/100 WBC (Bld) 68.4 % Normal [facility] (15775) Comment: Performed By: #### BGLU #### [address] [place] [address] Hematocrit (HCT) 23.5 40.0-52.0 % Low 05-21-2017 [facility] (03086) Comment: Performed By: #### BGLU #### [address] [place] [address] Hemoglobin mass conc (Bld) 8.2 13.0-18.0 g/dL Low [facility] (35369) Comment: Performed By: #### BGLU #### [address] [place] [address] Lymphocytes 2.0 1.0-4.3 10*3/uL Normal 05-21-2017 [facility] (31719) Comment: Performed By: #### BGLU #### [address] [place] [address] Lymphocytes/100 leukocytes 21.8 % Normal [facility] (00575) Comment: Performed By: #### BGLU #### [address] [place] [address] MCH 35.2 26.0-34.0 pg High 05-21-2017 [facility] (15833) Comment: Performed By: #### BGLU #### [address] [place] [address] MCHC mass conc (RBC) 34.8 32.0-36.0 % Normal 7 [facility] (91842) Comment: Performed By: #### BGLU #### [address] [place] [address] MCV 101.2 80.0-98.0 fL High 05-21-2017 [facility] (00477) Comment: Performed By: #### BGLU #### [address] [place] [address] Monocytes 0.6 0.0-0.8 10*3/uL Normal 05-21-2017 [facility] (58857) Comment: Performed By: #### BGLU #### [address] [place] [address] Monocytes/100 leukocytes 7.1 % Normal 05-21 [facility] (87551) Comment: Performed By: #### BGLU #### [address] [place] [address] Neutrophils 6.1 1.8-7.0 10*3/uL Normal 05-21-2017 [facility] (68536) Comment: Performed By: #### BGLU #### [address] [place] [address] Platelet mean volume (PMV) 8.5 7.4-10.4 fL Normal [facility] (39456) Comment: Performed By: #### BGLU #### [address] [place] [address] Platelets 110 140-440 10*3/uL Low 05-21-2017 [facility] (82674) Comment: Performed By: #### BGLU #### [address] [place] [address] WBC (Leukocytes) 9.0 3.6-10.7 10*3/uL Normal 05-21-2017 [facility] (49809) Comment: Performed By: #### BGLU #### [address] [place] [address] glucose,bedside on 2017-05-21 Glucose mass conc 196 70-100 mg/dL High 05-21-2017 [facility] (49299) Comment: Result Comment: Test perform ed by glucose meter. Results may be 10%-15% lowerthan serum/plasma value s. (CLIA ID [id number]) Performed By: #### BGLU #### [address] [place] [address] Glucose mass conc 140 70-100 mg/dL High 05-21-2017 [facility] (75015) Comment: Result Comment: Test perform ed by glucose meter. Results may be 10%-15% lowerthan serum/plasma value s. (CLIA ID [id number]) Performed By: #### BGLU #### [address] [place] [address] Glucose mass conc 123 70-100 mg/dL High 05-21-2017 [facility] (88776) Comment: Result Comment: Test perform ed by glucose meter. Results may be 10%-15% lowerthan serum/plasma value s. (CLIA ID [id number]) Performed By: #### BGLU #### [address] [place] [address] basic metabolic panel on 2017-05-21 Anion gap 5 mmol/L Normal 05-21-2017 [facility] (58360) Comment: Performed By: #### BGLU #### [address] [place] [address] Creatinine 0.48 0.55-1.40 mg/dL Low 05-21-2017 [facility] (76521) Comment: Performed By: #### BGLU #### [address] [place] [address] eGFR (black) >60.0 >60 mL/min/{1.73_m2} Normal 05-21-2017 [facility] (23627) Comment: Performed By: #### BGLU #### [address] [place] [address] eGFR (non-black) >60.0 >60 mL/min/{1.73_m2} Normal 2016 [facility] (61617) Comment: Result Comment: Source- MDRD equation with creatinine calibration to IDMS(NKDEP)eGFR not recommen ded for drug dose adjustment Performed By: #### BGLU #### [address] [place] [address] Glucose mass conc 112 70-100 mg/dL High 05-21-2017 [facility] (85756) Comment: Performed By: #### BGLU #### [address] [place] [address] Urea nitrogen 6 7-25 mg/dL Low 05-21-2017 [facility] (85420) Comment: Performed By: #### BGLU #### [address] [place] [address] Calcium 7.7 8.2-10.1 mg/dL Low 05-21-2017 [facility] (47876) Comment: Performed By: #### BGLU #### [address] [place] [address] CO2 28 21-32 mmol/L Normal 05-21-2017 [facility] (25271) Comment: Performed By: #### BGLU #### [address] [place] [address] Chloride 99 98-109 mmol/L Normal 05-21-2017 [facility] (62918) Comment: Performed By: #### BGLU #### [address] [place] [address] Potassium molar conc 3.5 3.5-5.1 mmol/L Normal 7 [facility] (82041) Comment: Performed By: #### BGLU #### [address] [place] [address] Sodium 132 135-145 mmol/L Low 05-21-2017 [facility] (25529) Comment: Performed By: #### BGLU #### [address] [place] [address] vancomycin trough o n 2017-05-20 Vancomycin Trough 9.1 15.0-20.0 ug/mL Low 05-20-2017 [facility] (56622) Comment: Result Comment: . Performed By: #### UAMAC ### [address] [place] [id number] hemogram w/ autodiff on 2017-05-20 Abs Baso Cnt 0.0 0.0-0.2 10*3/uL Normal 05-20-2017 [facility] (45170) Comment: Performed By: #### UAMAC ### [address] [place] [id number] Basophils/100 WBC Auto (Bld) 0.2 % Normal 0 05-20-2017 [facility] (33486) Comment: Performed By: #### UAMAC ### [address] [place] [address] Eosinophils 0.1 0.0-0.5 10*3/uL Normal 05-20-2017 [facility] (46234) Comment: Performed By: #### UAMAC ### [address] [place] [id number] Eosinophils/100 leukocytes 0.8 % Normal [facility] (36518) Comment: Performed By: #### UAMAC ### [address] [place] [address] Erythrocyte distribution 15.5 11.5-14.5 % High 05-20 [facility] width Auto Ratio (RBC) (40264) Comment: Performed By: #### UAMAC ### [address] [place] [address] Erythrocytes (RBC) 2.34 4.40-5.90 10*6/uL Low 05-20-2017 [facility] (08395) Comment: Performed By: #### [facility] ### #[address] [place] [address] Granulocytes/100 WBC (Bld) 65.6 % Normal [facility] (14288) Comment: Performed By: #### [facility] ### #[address] [place] [address] Hematocrit (HCT) 23.9 40.0-52.0 % Low 05-20-2017 [facility] (49858) Comment: Performed By: #### [facility] ### #[address] [place] [address] Hemoglobin mass conc (Bld) 8.4 13.0-18.0 g/dL Low [facility] (78710) Comment: Performed By: #### UAMAC ### #[address] [place] [address] Lymphocytes 1.9 1.0-4.3 10*3/uL Normal 05-20-2017 [facility] (07704) Comment: Performed By: #### UAMAC ### #[address] [place] [address] Lymphocytes/100 leukocytes 23.6 % Normal [facility] (18745) Comment: Performed By: #### UAMAC ### #[address] [place] [address] MCH 35.8 26.0-34.0 pg High 05-20-2017 [facility] (24468) Comment: Performed By: #### UAMAC ### #[address] [place] [address] MCHC mass conc (RBC) 35.1 32.0-36.0 % Normal 7 [facility] (14779) Comment: Performed By: #### UAMAC ### #[address] [place] [address] MCV 101.9 80.0-98.0 fL High 05-20-2017 [facility] (49965) Comment: Performed By: #### UAMAC ### #[address] [place] [address] Monocytes 0.8 0.0-0.8 10*3/uL Normal 05-20-2017 [facility] (88825) Comment: Performed By: #### UAMAC ### #[address] [place] [address] Monocytes/100 leukocytes 9.8 % Normal 05-20 [facility] [address] (10663) Comment: Performed By: #### UAMAC ### #[address] [place] [address] Neutrophils 5.3 1.8-7.0 10*3/uL Normal 05-20-2017 [facility] (80837) Comment: Performed By: #### UAMAC ### #[address] [place] [address] Platelet mean volume (PMV) 8.9 7.4-10.4 fL Normal [facility] [address] (90129) Comment: Performed By: #### UAMAC ### #[address] [place] [address] Platelets 105 140-440 10*3/uL Low 05-20-2017 [facility] (58051) Comment: Performed By: #### UAMAC ### #[address] [place] [address] WBC (Leukocytes) 8.1 3.6-10.7 10*3/uL Normal 05-20-2017 [facility] [address] (05395) Comment: Performed By: #### UAMAC ### #[address] [place] [address] glucose,bedside on 2017-05-20 Glucose mass conc 150 70-100 mg/dL High 05-20-2017 [facility] (08357) Comment: Result Comment: Test perform ed by glucose meter. Results may be 10%-15% lowerthan serum/plasma value s. (CLIA ID [id number]) Performed By: #### BGLU #### [address] [place] [place] [address] Glucose mass conc 150 70-100 mg/dL High 05-20-2017 [facility] (22580) Comment: Result Comment: Test perform ed by glucose meter. Results may be 10%-15% lowerthan serum/plasma value s. (CLIA ID [id number]) Performed By: #### UAMAC ### #[address] [place] [address] Glucose mass conc 146 70-100 mg/dL High 05-20-2017 [facility] (18716) Comment: Result Comment: Test perform ed by glucose meter. Results may be 10%-15% lowerthan serum/plasma value s. (CLIA ID [id number]) Performed By: #### UAMAC ### #[address] [place] [address] Glucose mass conc 115 70-100 mg/dL High 05-20-2017 [facility] (37441) Comment: Result Comment: Test perform ed by glucose meter. Results may be 10%-15% lowerthan serum/plasma value s. (CLIA ID [id number]) Performed By: #### UAMAC ### #[address] [place] [address] basic metabolic panel on 2017-05-20 Anion gap 7 mmol/L Normal 05-20-2017 [facility] (23255) Comment: Performed By: #### UAMAC ### #[address] [place] [address] Creatinine 0.35 0.55-1.40 mg/dL Low 05-20-2017 [facility] (38620) Comment: Performed By: #### UAMAC ### #[address] [place] [address] eGFR (black) >60.0 >60 mL/min/{1.73_m2} Normal 05-20-2017 [facility] (85598) Comment: Performed By: #### UAMAC ### #[address] [place] [address] eGFR (non-black) >60.0 >60 mL/min/{1.73_m2} Normal 2016 [facility] (51902) Comment: Result Comment: Source- MDRD equation with creatinine calibration to IDMS(NKDEP)eGFR not recommen ded for drug dose adjustment Performed By: #### UAMAC ### #[address] [place] [address] Glucose mass conc 117 70-100 mg/dL High 05-20-2017 [facility] (78170) Comment: Performed By: #### UAMAC ### #[address] [place] [address] Urea nitrogen 6 7-25 mg/dL Low 05-20-2017 [facility] (90221) Comment: Performed By: #### UAMAC ### #[address] [place] [address] Calcium 7.9 8.2-10.1 mg/dL Low 05-20-2017 [facility] (55497) Comment: Performed By: #### UAMAC ### #[address] [place] [address] CO2 26 21-32 mmol/L Normal 05-20-2017 [facility] (91583) Comment: Performed By: #### UAMAC ### #[address] [place] [address] Chloride 101 98-109 mmol/L Normal 05-20-2017 [facility] (86149) Comment: Performed By: #### UAMAC ### #[address] [place] [address] Potassium molar conc 3.7 3.5-5.1 mmol/L Normal 7 [facility] [employer] [facility] (01212) Comment: Performed By: #### UAMAC ### #[address] [place] [address] Sodium 134 135-145 mmol/L Low 05-20-2017 [facility] (19674) Comment: Performed By: #### UAMAC ### [address] [place] [address] vancomycin trough o n 2017-05-19 Vancomycin Trough 10.0 15.0-20.0 ug/mL Low 05-19-2017 [facility] (04774) Comment: Result Comment: . Performed By: #### UAMAC ### #[address] [place] [address] hemogram w/ autodiff on 2017-05-19 Abs Baso Cnt 0.0 0.0-0.2 10*3/uL Normal 05-19-2017 [facility] (45006) Comment: Performed By: #### HEMDF, BM P3, PCAL ####[address] [place] [address] Basophils/100 WBC Auto (Bld) 0.2 % Normal 0 05-19-2017 [facility] (29203) Comment: Performed By: #### HEMDF, BM P3, PCAL ####[address] [place] [address] Eosinophils 0.0 0.0-0.5 10*3/uL Normal 05-19-2017 [facility] (66635) Comment: Performed By: #### HEMDF, BM P3, PCAL ####[address] [place] [address] Eosinophils/100 leukocytes 0.3 % Normal [facility] (92926) Comment: Performed By: #### HEMDF, BM P3, PCAL ####[address] [place] [address] Erythrocyte distribution 15.1 11.5-14.5 % High 05-19 [facility] width Auto Ratio (RBC) (39479) Comment: Performed By: #### HEMDF, BM P3, PCAL ####[address] [place] [address] Erythrocytes (RBC) 2.40 4.40-5.90 10*6/uL Low 05-19-2017 [facility] (48460) Comment: Performed By: #### HEMDF, BM P3, PCAL ####[address] [place] [address] Granulocytes/100 WBC (Bld) 70.1 % Normal [facility] (95302) Comment: Performed By: #### HEMDF, BM P3, PCAL ####[address] [place] [address] Hematocrit (HCT) 23.9 40.0-52.0 % Low 05-19-2017 [facility] (35075) Comment: Performed By: #### HEMDF, BM P3, PCAL ####[address] [place] [address] Hemoglobin mass conc (Bld) 8.4 13.0-18.0 g/dL Low [facility] (90242) Comment: Performed By: #### HEMDF, BM P3, PCAL ####[address] [place] [address] Lymphocytes 1.5 1.0-4.3 10*3/uL Normal 05-19-2017 [facility] (37896) Comment: Performed By: #### HEMDF, BM P3, PCAL ####[address] [place] [address] Lymphocytes/100 leukocytes 17.9 % Normal [facility] (82616) Comment: Performed By: #### HEMDF, BM P3, PCAL ####[address] [place] [address] MCH 34.9 26.0-34.0 pg High 05-19-2017 [facility] (08549) Comment: Performed By: #### HEMDF, BM P3, PCAL ####[address] [place] [address] MCHC mass conc (RBC) 35.0 32.0-36.0 % Normal 7 [facility] (90587) Comment: Performed By: #### HEMDF, BM P3, PCAL ####[address] [place] [address] MCV 99.9 80.0-98.0 fL High 05-19-2017 [facility] (24392) Comment: Performed By: #### HEMDF, BM P3, PCAL ####[address] [place] [address] Monocytes 1.0 0.0-0.8 10*3/uL High 05-19-2017 [facility] (62436) Comment: Performed By: #### HEMDF, BM P3, PCAL ####[address] [place] [address] Monocytes/100 leukocytes 11.5 % Normal 05-19 [facility] (50154) Comment: Performed By: #### HEMDF, BM P3, PCAL ####[address] [place] [address] Neutrophils 5.9 1.8-7.0 10*3/uL Normal 05-19-2017 [facility] (40002) Comment: Performed By: #### HEMDF, BM P3, PCAL ####[address] [place] [address] Platelet mean volume (PMV) 8.7 7.4-10.4 fL Normal [facility] (88964) Comment: Performed By: #### HEMDF, BM P3, PCAL ####[address] [place] [address] Platelets 107 140-440 10*3/uL Low 05-19-2017 [facility] (95133) Comment: Performed By: #### HEMDF, BM P3, PCAL ####[address] [place] [address] WBC (Leukocytes) 8.4 3.6-10.7 10*3/uL Normal 05-19-2017 [facility] (72726) Comment: Performed By: #### HEMDF, BM P3, PCAL ####[address] [place] [address] glucose,bedside on 2017-05-19 Glucose mass conc 138 70-100 mg/dL High 05-19-2017 [facility] (37281) Comment: Result Comment: Test perform ed by glucose meter. Results may be 10%-15% lowerthan serum/plasma value s. (CLIA ID [id number]) Performed By: #### UAMAC ### #[address] [place] [address] Glucose mass conc 164 70-100 mg/dL High 05-19-2017 [facility] (42926) Comment: Result Comment: Test perform ed by glucose meter. Results may be 10%-15% lowerthan serum/plasma value s. (CLIA ID [id number]) Performed By: #### UAMAC ### #[address] [place] [address] Glucose mass conc 133 70-100 mg/dL High 05-19-2017 [facility] (60461) Comment: Result Comment: Test perform ed by glucose meter. Results may be 10%-15% lowerthan serum/plasma value s. (CLIA ID [id number]) Performed By: #### HEMDF, BM P3, PCAL ####[address] [place] [address] cr chest portable o n 2017-05-19 CR Chest Portable Patient Name: BECKY HUTCHISON 05-19-2017 [place] FIN: S [facility] (50750) [id number] Diagnostic Radiology Exam Date/Time 05/19/2017 16:45:49 EDT Exam CR Chest Portable Ordering Physician DO ARRIAZA KATHRYN C Accession Number [id number] CPT4 Codes 60060 () Reason For Exam line placement Report [...] 2017-05-19 Anion gap 6 mmol/L Normal 05-19-2017 [facility] (86741) Comment: Performed By: #### HEMDF, BM P3, PCAL ####[address] [place] [address] Creatinine 0.52 0.55-1.40 mg/dL Low 05-19-2017 [facility] (11791) Comment: Performed By: #### HEMDF, BM P3, PCAL ####[address] [place] [address] eGFR (black) >60.0 >60 mL/min/{1.73_m2} Normal 05-19-2017 [facility] (45523) Comment: Performed By: #### HEMDF, BM P3, PCAL ####[address] [place] [address] eGFR (non-black) >60.0 >60 mL/min/{1.73_m2} Normal 2016 [facility] (19894) Comment: Result Comment: Source- MDRD equation with creatinine calibration to IDMS(NKDEP)eGFR not recommen ded for drug dose adjustment Performed By: #### HEMDF, BM P3, PCAL ####[address] [place] [address] Calcium 7.8 8.2-10.1 mg/dL Low 05-19-2017 [facility] (78214) Comment: Performed By: #### HEMDF, BM P3, PCAL ####[address] [place] [address] Glucose mass conc 143 70-100 mg/dL High 05-19-2017 [facility] (17958) Comment: Performed By: #### HEMDF, BM P3, PCAL ####[address] [place] [address] Urea nitrogen 10 7-25 mg/dL Normal 05-19-2017 [facility] (87234) Comment: Performed By: #### HEMDF, BM P3, PCAL ####[address] [place] [address] CO2 25 21-32 mmol/L Normal 05-19-2017 [facility] (98695) Comment: Performed By: #### HEMDF, BM P3, PCAL ####[address] [address] Chloride 103 98-109 mmol/L Normal 05-19-2017 [facility] (86749) Comment: Performed By: #### HEMDF, BM P3, PCAL ####[address] [place] [address] Potassium molar conc 3.4 3.5-5.1 mmol/L Low 7 [facility] (80902) Comment: Performed By: #### HEMDF, BM P3, PCAL ####[address] [address] Sodium 134 135-145 mmol/L Low 05-19-2017 [facility] (49329) Comment: Performed By: #### HEMDF, BM P3, PCAL ####[address] [address] hemogram w/ autodiff on 2017-05-18 Abs Baso Cnt 0.0 0.0-0.2 10*3/uL Normal 05-18-2017 [facility] (16490) Comment: Performed By: #### HEMDF, BM P3, PCAL ####[address] [address] Basophils/100 WBC Auto (Bld) 0.1 % Normal 0 05-18-2017 [facility] (89691) Comment: Performed By: #### HEMDF, BM P3, PCAL ####[address] [address] Eosinophils 0.0 0.0-0.5 10*3/uL Normal 05-18-2017 [facility] (28973) Comment: Performed By: #### HEMDF, BM P3, PCAL ####[address] [address] Eosinophils/100 leukocytes 0.2 % Normal [facility] (73446) Comment: Performed By: #### HEMDF, BM P3, PCAL ####[address] [address] Erythrocyte distribution 16.0 11.5-14.5 % High 05-18 [facility] width Auto Ratio (RBC) (35847) Comment: Performed By: #### HEMDF, BM P3, PCAL ####[id number] Erythrocytes (RBC) 2.92 4.40-5.90 10*6/uL Low 05-18-2017 [facility] (56445) Comment: Performed By: #### HEMDF, BM P3, PCAL ####[id number] Granulocytes/100 WBC (Bld) 87.5 % Normal [facility] (03617) Comment: Performed By: #### HEMDF, BM P3, PCAL ####[address] [address] Hematocrit (HCT) 29.4 40.0-52.0 % Low 05-18-2017 [facility] (89201) Comment: Performed By: #### HEMDF, BM P3, PCAL ####[address] [address] Hemoglobin mass conc (Bld) 10.3 13.0-18.0 g/dL Low [facility] (85449) Comment: Performed By: #### HEMDF, BM P3, PCAL ####[address] [address] Lymphocytes 1.0 1.0-4.3 10*3/uL Normal 05-18-2017 [facility] (58443) Comment: Performed By: #### HEMDF, BM P3, PCAL ####[address] [address] Lymphocytes/100 leukocytes 11.4 % Normal [facility] (01304) Comment: Performed By: #### HEMDF, BM P3, PCAL ####[address] [place] [address] MCH 35.4 26.0-34.0 pg High 05-18-2017 [facility] (28079) Comment: Performed By: #### HEMDF, BM P3, PCAL ####[address] [place] [address] MCHC mass conc (RBC) 35.1 32.0-36.0 % Normal 7 [facility] (60771) Comment: Performed By: #### HEMDF, BM P3, PCAL ####[address] [place] [address] MCV 100.6 80.0-98.0 fL High 05-18-2017 [facility] (04705) Comment: Performed By: #### HEMDF, BM P3, PCAL ####[address] [address] Monocytes 0.1 0.0-0.8 10*3/uL Normal 05-18-2017 [facility] (95178) Comment: Performed By: #### HEMDF, BM P3, PCAL ####[address] [place] [address] Monocytes/100 leukocytes 0.8 % Normal 05-18 [facility] (39069) Comment: Performed By: #### HEMDF, BM P3, PCAL ####[address] [place] [address] Neutrophils 7.7 1.8-7.0 10*3/uL High 05-18-2017 [facility] (24102) Comment: Performed By: #### HEMDF, BM P3, PCAL ####[address] [place] [address] Platelet mean volume (PMV) 8.7 7.4-10.4 fL Normal [facility] (50268) Comment: Performed By: #### HEMDF, BM P3, PCAL ####[address] [place] [address] Platelets 114 140-440 10*3/uL Low 05-18-2017 [facility] (75107) Comment: Performed By: #### HEMDF, BM P3, PCAL ####[address] [place] [address] WBC (Leukocytes) 8.8 3.6-10.7 10*3/uL Normal 05-18-2017 [facility] (04380) Comment: Performed By: #### HEMDF, BM P3, PCAL ####[address] [place] [address] glucose,bedside on 2017-05-18 Glucose mass conc 174 70-100 mg/dL High 05-18-2017 [facility] (53582) Comment: Result Comment: Test perform ed by glucose meter. Results may be 10%-15% lowerthan serum/plasma value s. (CLIA ID [id number]) Performed By: #### HEMDF, BM P3, PCAL ####[address] [place] [address] Glucose mass conc 250 70-100 mg/dL High 05-18-2017 [facility] (11082) Comment: Result Comment: Test perform ed by glucose meter. Results may be 10%-15% lowerthan serum/plasma value s. (CLIA ID [id number]) Performed By: #### HEMDF, BM P3, PCAL ####[address] [place] [address] Glucose mass conc 159 70-100 mg/dL High 05-18-2017 [facility] (42050) Comment: Result Comment: Test perform ed by glucose meter. Results may be 10%-15% lowerthan serum/plasma value s. (CLIA ID [id number]) Performed By: #### HEMDF, BM P3, PCAL ####[address] [place] [address] Glucose mass conc 159 70-100 mg/dL High 05-18-2017 [facility] (36964) Comment: Result Comment: Test perform ed by glucose meter. Results may be 10%-15% lowerthan serum/plasma value s. (CLIA ID [id number]) Performed By: #### HEMDF, BM P3, PCAL ####[address] [place] [address] Glucose mass conc 114 70-100 mg/dL High 05-18-2017 [facility] (49850) Comment: Result Comment: Test perform ed by glucose meter. Results may be 10%-15% lowerthan serum/plasma value s. (CLIA ID [id number]) Performed By: #### HEMDF, BM P3, PCAL ####[address] [place] [address] culture on CULTURE OROR [facility] Patient name: Alfredo HUTCHISON 05-18-2017 [facility] BECKY AritaR.N.: [id number] : 1955 Health Age: 61 Sex: M Ord. System Physician: LANDRY ESCUDERO Location: [address] [place] [address] ([id number]) Copy to: LANDRY ESCUDERO Adm. Date: 05/15/17 MICROBIOLOGYORDER#: [id number] COLLECTED: 05/17/17 22:25SOURCE: Tissue L4-5 DISC SPACE RECEIVED: 05/18/17 08:58 OE C O M M E N T S ORSTAIN GRAM FINAL 05/18/17 11:5009No polymorphonuclear cells/lpf.No organisms seen.CULTURE 05/21/17No growth at 3 days. Comment: Performed By: #### HEMDF, BM P3, PCAL ####[address] [place] [address] culture anaerobe on 2017-05-18 CULTURE OR SWABOR SWAB [facility] Patient Normal 05-18-2017 [facility] ANAEROBE name: BECKY HUTCHISONN.: [id number] : Health 1955 Age: 61 Sex: M Account#: System [id number] Ord. Physician: LANDRY ESCUDERO ([id number]) Location: 4EI-140 Copy to: LANDRY ESCUDERO DISCHARGED: 05/22/17 Adm. Date: 05/15/17 MICROBIOLOGYORDER#: [id number] COLLECTED: 05/17/17 22:25SOURCE: Wound-surgical L4-5 DISC SPACE RECEIVED: 05/18/17 08:57 OE Gabby Estrella M E N T S OR SWABCULTURE ANAEROBE FINAL 05/23/17 09:No growth of anaerobes at 5 days. Comment: Performed By: #### FABRICE ALVA P3, PCAL ####[address] [place] [address] CULTURE [facility] Patient name: Suzan sloan 05-18-2017 [facility] BECKY QUINTANILLAN.: [id number] : Health 1955 Age: 61 Sex: M Account#: System [id number] Ord. Physician: LANDRY ESCUDERO ([id number]) Location: 4EI-140 Copy to: LANDRY ESCUDERO DISCHARGED: 05/22/17 Adm. Date: 05/15/17 MICROBIOLOGYORDER#: [id number] COLLECTED: 05/17/17 22:25SOURCE: Tissue L4-5 DISC SPACE RECEIVED: 05/18/17 08:58 JAY Estrella M E N T S ORCULTURE ANAEROBE FINAL 05/23/17 09:No growth of anaerobes at 5 days. Comment: Performed By: #### FABRICE ALVA P3, PCAL ####[address] [place] [address] cult./st. bacteria on 2017-05-18 CULT./ST. OR SWABOR SWAB [facility] Patient Normal 05-18-2017 [facility] BACTERIA name: BECKY HUTCHISON JonathanN.: [id number] : Health 1955 Age: 61 Sex: M Account#: System [id number] Ord. Physician: LANDRY ESCUDERO ([id number]) Location: [address] [place] [address] Copy to: LANDRY ESCUDERO Adm. Date: 05/15/17 MICROBIOLOGYORDER#: [id number] COLLECTED: 05/17/17 22:25SOURCE: Wound-surgical L4-5 DISC SPACE RECEIVED: 05/18/17 08:57 OE C O M M E N T S OR SWABSTAIN GRAM FINAL 05/18/17 11:51005/18/17Rare polymorphonuclear cells/lpf.No organisms seen.CULT./ST. BACTERIA FINAL 05/21/17 10:57005/21/17No growth at 3 days. Comment: Performed By: #### HEMDF, BM P3, PCAL ####[place] [address] basic metabolic panel on 2017-05-18 Anion gap 9 mmol/L Normal 05-18-2017 [facility] (04062) Comment: Performed By: #### HEMDF, BM P3, PCAL ####[address] [address] Creatinine 0.67 0.55-1.40 mg/dL Normal 05-18-2017 [facility] (48697) Comment: Performed By: #### HEMDF, BM P3, PCAL ####[address] [address] eGFR (black) >60.0 >60 mL/min/{1.73_m2} Normal 05-18-2017 [facility] (66165) Comment: Performed By: #### HEMDF, BM P3, PCAL ####[address] [address] eGFR (non-black) >60.0 >60 mL/min/{1.73_m2} Normal 2016 [facility] (18794) Comment: Result Comment: Source- MDRD equation with creatinine calibration to IDMS(NKDEP)eGFR not recommen ded for drug dose adjustment Performed By: #### HEMDF, BM P3, PCAL ####[address] [place] [address] Calcium 7.9 8.2-10.1 mg/dL Low 05-18-2017 [facility] (55218) Comment: Performed By: #### HEMDF, BM P3, PCAL ####[address] [place] [address] Glucose mass conc 154 70-100 mg/dL High 05-18-2017 [facility] (29144) Comment: Performed By: #### HEMDF, BM P3, PCAL ####[address] [place] [address] Urea nitrogen 12 7-25 mg/dL Normal 05-18-2017 [facility] (67372) Comment: Performed By: #### HEMDF, BM P3, PCAL ####[address] [place] [address] CO2 21 21-32 mmol/L Normal 05-18-2017 [facility] (11258) Comment: Performed By: #### HEMDF, BM P3, PCAL ####[address] [place] [address] Chloride 107 98-109 mmol/L Normal 05-18-2017 [facility] (59351) Comment: Performed By: #### HEMDF, BM P3, PCAL ####[address] [place] [address] Potassium molar conc 4.3 3.5-5.1 mmol/L Normal 7 [facility] (90487) Comment: Result Comment: Slightly hem olysed, interpret with caution. Performed By: #### HEMDF, BM P3, PCAL ####[address] [place] [address] Sodium 137 135-145 mmol/L Normal 05-18-2017 [facility] (42710) Comment: Performed By: #### HEMDF, BM P3, PCAL ####[place] [id number] prothrombin time on 2017-05-17 INR Coag RelTime (PPP) 1.5 0.9-1.1 {INR} High 05-17- 017 [facility] (70864) Comment: Result Comment: Recommended Anticoagulant Therapy:SEE BELOW----- [...] Performed By: #### HEMDF, BM P3, PCAL ####[place] [address] Prothrombin time (PT) Coag 14.8 9.0-12.0 s High [facility] time (PPP) (13301) Comment: Result Comment: . Performed By: #### HEMDF, BM P3, PCAL ####[place] [address] hemogram w/ autodiff on 2017-05-17 Abs Baso Cnt 0.0 0.0-0.2 10*3/uL Normal 05-17-2017 [facility] (94183) Comment: Performed By: #### HEMDF, BM P3, PCAL ####[place] [id number] Basophils/100 WBC Auto (Bld) 0.0 % Normal 0 05-17-2017 [facility] (09557) Comment: Performed By: #### HEMDF, BM P3, PCAL ####[place] [address] Eosinophils 0.0 0.0-0.5 10*3/uL Normal 05-17-2017 [facility] (24173) Comment: Performed By: #### HEMDF, BM P3, PCAL ####[address] [place] [address] Eosinophils/100 leukocytes 0.4 % Normal [facility] (69691) Comment: Performed By: #### HEMDF, BM P3, PCAL ####[address] [place] [address] Erythrocyte distribution 15.7 11.5-14.5 % High 05-17 [facility] width Auto Ratio (RBC) ([id number]) Comment: Performed By: #### HEMDF, BM P3, PCAL ####[address] [place] [address] Erythrocytes (RBC) 2.90 4.40-5.90 10*6/uL Low 05-17-2017 [facility] ([id number]) Comment: Performed By: #### HEMDF, BM P3, PCAL ####[address] [place] [address] Granulocytes/100 WBC (Bld) 74.4 % Normal [facility] ([id number]) Comment: Performed By: #### HEMDF, BM P3, PCAL ####[address] [place] [address] Hematocrit (HCT) 29.7 40.0-52.0 % Low 05-17-2017 [facility] ([id number]) Comment: Performed By: #### HEMDF, BM P3, PCAL ####[address] [place] [address] Hemoglobin mass conc (Bld) 10.4 13.0-18.0 g/dL Low [facility] ([id number]) Comment: Performed By: #### HEMDF, BM P3, PCAL ####[address] [place] [address] Lymphocytes 1.5 1.0-4.3 10*3/uL Normal 05-17-2017 [facility] ([id number]) Comment: Performed By: #### HEMDF, BM P3, PCAL ####[address] [address] Lymphocytes/100 leukocytes 16.3 % Normal [facility] (39977) Comment: Performed By: #### HEMDF, BM P3, PCAL ####[address] [place] [address] MCH 35.9 26.0-34.0 pg High 05-17-2017 [facility] [facility] (44846) Comment: Performed By: #### HEMDF, BM P3, PCAL ####[address] [place] [address] MCHC mass conc (RBC) 35.1 32.0-36.0 % Normal 7 [facility] (28367) Comment: Performed By: #### HEMDF, BM P3, PCAL ####[address] [address] MCV 102.4 80.0-98.0 fL [facility] (30641[facility] Comment: Performed By: #### HEMDF, BM P3, PCAL ####[address] [address] Monocytes 0.8 0.0-0.8 10*3/uL Normal 05-17-2017 [facility] (84109) Comment: Performed By: #### HEMDF, BM P3, PCAL ####[address] [place] [address] Monocytes/100 leukocytes 8.9 % Normal 05-17 [facility] (24973) Comment: Performed By: #### HEMDF, BM P3, PCAL ####[address] [address] Neutrophils 6.9 1.8-7.0 10*3/uL Normal 05-17-2017 [facility] (35157) Comment: Performed By: #### HEMDF, BM P3, PCAL ####[address] [address] Platelet mean volume (PMV) 8.4 7.4-10.4 fL Normal [facility] (44920) Comment: Performed By: #### HEMDF, BM P3, PCAL ####[address] [place] [address] Platelets 98 140-440 10*3/uL Low 05-17-2017 [facility] (27541) Comment: Performed By: #### HEMDF, BM P3, PCAL ####[address] [place] [address] WBC (Leukocytes) 9.3 3.6-10.7 10*3/uL Normal 05-17-2017 [facility] (55505) Comment: Performed By: #### HEMDF, BM P3, PCAL ####[address] [place] [address] glucose,bedside on 2017-05-17 Glucose mass conc 91 70-100 mg/dL Normal 05-17-2017 [facility] (42781) Comment: Result Comment: Test perform ed by glucose meter. Results may be 10%-15% lowerthan serum/plasma value s. (CLIA ID [id number]) Performed By: #### HEMDF, BM P3, PCAL ####[address] [place] [address] Glucose mass conc 107 70-100 mg/dL High 05-17-2017 [facility] (35896) Comment: Result Comment: Test perform ed by glucose meter. Results may be 10%-15% lowerthan serum/plasma value s. (CLIA ID [id number]) Performed By: #### HEMDF, BM P3, PCAL ####[address] [place] [address] Glucose mass conc 98 70-100 mg/dL Normal 05-17-2017 [facility] (17476) Comment: Result Comment: Test perform ed by glucose meter. Results may be 10%-15% lowerthan serum/plasma value s. (CLIA ID [id number]) Performed By: #### HEMDF, BM P3, PCAL ####[address] [place] [address] Glucose mass conc 92 70-100 mg/dL Normal 05-17-2017 [facility] (71096) Comment: Result Comment: Test perform ed by glucose meter. Results may be 10%-15% lowerthan serum/plasma value s. (CLIA ID [id number]) Performed By: #### HEMDF, BM P3, PCAL ####[address] [place] [address] culture blood on 29-05-05 CULTURE Specimen Source Comment:Blood [place] Normal 05-17-2017 [facility] BLOOD System Patient name: BECKY HUTCHISONN.: [facility] [id number] : 1955 Age: 61 Sex: M System Ord. Physician: ([id number]) TITA ESQUIVEL Location: [id number] Copy to: TITA ESQUIVEL DISCHARGED: 05/22/17 Adm. Date: 05/15/17 MICROBIOLOGYORDER#: [id number] COLLECTED: 05/17/17 16:30SOURCE: Blood (Left -hand) RECEIVED: 05/17/17 18:26 OE C O M M E N T S Specimen Source Comment:BloodCULTURE BLOOD FINAL 05/22/17 20:No growth at 5 days. Comment: Performed By: #### HEMDF, BM P3, PCAL ####[address] [place] [address] CULTURE Specimen Source Comment:Blood [facility] Health Normal 05-17-2017 [facility] BLOOD System Patient name: BECKY HUTCHISONN.: Health [id number] : 1955 Age: 61 Sex: M System Ord. Physician: ([id number]) TITA ESQUIVEL Location: [id number]-[id number] Copy to: TITA ESQUIVEL DISCHARGED: 05/22/17 Adm. Date: 05/15/17 MICROBIOLOGYORDER#: [id number] COLLECTED: 05/17/17 16:15SOURCE: Blood (Right -hand) RECEIVED: 05/17/17 18:25 OE C O M M E N T S Specimen Source Comment:BloodCULTURE BLOOD FINAL 05/22/17 20:No growth at 5 days. Comment: Performed By: #### HEMDF, BM P3, PCAL ####[place] [address] basic metabolic panel on 2017-05-17 Anion gap 10 mmol/L Normal 05-17-2017 [facility] (35103) Comment: Performed By: #### HEMDF, BM P3, PCAL ####[place] [address] Glucose mass conc 91 70-100 mg/dL Normal 05-17-2017 [facility] (69445) Comment: Performed By: #### HEMDF, BM P3, PCAL ####[place] [address] Urea nitrogen 10 7-25 mg/dL Normal 05-17-2017 [facility] [address] (31051) Comment: Performed By: #### HEMDF, BM P3, PCAL ####[place] [address] Calcium 8.2 8.2-10.1 mg/dL Normal 05-17-2017 [employer] [facility] (63516) Comment: Performed By: #### HEMDF, BM P3, PCAL ####[id number] Creatinine 0.52 0.55-1.40 mg/dL Low 05-17-2017 [employer] [facility] (25074) Comment: Performed By: #### HEMDF, BM P3, PCAL ####[address] [address] eGFR (black) >60.0 >60 mL/min/{1.73_m2} Normal 05-17-2017 [facility] [employer] [facility] (52705) Comment: Performed By: #### HEMDF, BM P3, PCAL ####[address] [address] eGFR (non-black) >60.0 >60 mL/min/{1.73_m2} Normal 2016 [place] [facility] (49731) Comment: Result Comment: Source- MDRD equation with creatinine calibration to IDMS(NKDEP)eGFR not recommen ded for drug dose adjustment Performed By: #### HEMDF, BM P3, PCAL ####[address] [address] CO2 21 21-32 mmol/L Normal 05-17-2017 [facility] (27781) Comment: Performed By: #### HEMDF, BM P3, PCAL ####[address] [address] Chloride 106 98-109 mmol/L Normal 05-17-2017 [facility] (45866) Comment: Performed By: #### HEMDF, BM P3, PCAL ####[address] [address] Potassium molar conc 3.4 3.5-5.1 mmol/L Low 7 [facility] (38165) Comment: Performed By: #### HEMDF, BM P3, PCAL ####[address] [address] Sodium 137 135-145 mmol/L Normal 05-17-2017 [facility] (68070) Comment: Performed By: #### HEMDF, BM P3, PCAL ####[address] [address] ts gel on 4 TS PATIENT: FOSTER PENA MRN: [id number] LOC: [id number],[id number]# : [id number] : 1955 Normal 05-16-2017 [employer] GEL SEX: M AGE: [id number] BY: Missy Guardado ORDERED : 05/15/2017 23:06 COLLECTED: Health 05/16/2017 02:18ORDER : [id number] RECEIVED : 05/16/2017 System 02:21 ---TEST (53920) NAME RESULT UNITS RANGES ABN FL STABO Group AB FRh, Gel NEG FAntibody Screen Gel NEG F Comment: Performed By: #### TSGL #### [place] [address] mri spine lumbar w/ + w/o contrast on 2017-05-16 MRI Spine Lumbar w/ Patient Name: Alfredo HUTCHISON 05-16-2017 [facility] [employer] + w/o Contrast BECKY FIN: System (38568) [id number] MRI Exam Date/Time 05/16/2017 10:44:41 EDT Exam MRI Spine Lumbar w/ + w/o Contrast Ordering Physician MD DEANGELO, SRI ARITA Accession Number [id number] CPT4 Codes 78637 () Reason For Exam L4-5 Diskitis, osteomyelitis, [...] Baso Cnt 0.0 0.0-0.2 10*3/uL Normal 05-16-2017 [facility] (82079) Comment: Performed By: #### HEMDF, BM P3 ####[address] [place] [address] Basophils/100 WBC Auto (Bld) 0.4 % Normal 0 05-16-2017 [facility] (64572) Comment: Performed By: #### HEMDF, BM P3 ####[address] [place] [address] Eosinophils 0.0 0.0-0.5 10*3/uL Normal 05-16-2017 [facility] (24057) Comment: Performed By: #### HEMDF, BM P3 ####[address] [place] [address] Eosinophils/100 leukocytes 0.2 % Normal [facility] (55843) Comment: Performed By: #### HEMDF, BM P3 ####[address] [place] [address] Erythrocyte distribution 15.5 11.5-14.5 % High 05-16 [facility] width Auto Ratio (RBC) (58655) Comment: Performed By: #### HEMDF, BM P3 ####[address] [place] [address] Erythrocytes (RBC) 3.05 4.40-5.90 10*6/uL Low 05-16-2017 [facility] (33337) Comment: Performed By: #### HEMDF, BM P3 ####[address] [place] [address] Granulocytes/100 WBC (Bld) 77.6 % Normal [facility] [employer] [facility] (24277) Comment: Performed By: #### HEMDF, BM P3 ####[address] [place] [address] Hematocrit (HCT) 31.0 40.0-52.0 % Low 05-16-2017 [facility] (70330) Comment: Performed By: #### HEMDF, BM P3 ####[address] [place] [address] Hemoglobin mass conc (Bld) 10.8 13.0-18.0 g/dL Low [facility] (45751) Comment: Performed By: #### HEMDF, BM P3 ####[address] [address] Lymphocytes 1.5 1.0-4.3 10*3/uL Normal 05-16-2017 [facility] (93769) Comment: Performed By: #### HEMDF, BM P3 ####[address] [address] Lymphocytes/100 leukocytes 13.8 % Normal [facility] (52701) Comment: Performed By: #### HEMDF, BM P3 ####[address] [address] MCH 35.5 26.0-34.0 pg High 05-16-2017 [facility] (96389) Comment: Performed By: #### HEMDF, BM P3 ####[address] [address] MCHC mass conc (RBC) 34.9 32.0-36.0 % Normal 7 [facility] (06519) Comment: Performed By: #### HEMDF, BM P3 ####[address] [address] MCV 101.7 80.0-98.0 fL High 05-16-2017 [facility] (13966) Comment: Performed By: #### HEMDF, BM P3 ####[address] [place] [address] Monocytes 0.8 0.0-0.8 10*3/uL Normal 05-16-2017 [facility] (00138) Comment: Performed By: #### HEMRADHA BM P3 ####[place] [address] [place] [address] Monocytes/100 leukocytes 8.0 % Normal 05-16 [facility] (68323) Comment: Performed By: #### HEMRADHA BM P3 ####[address] [place] [address] Neutrophils 8.2 1.8-7.0 10*3/uL High 05-16-2017 [facility] (19220) Comment: Performed By: #### HEMRADHA BM P3 ####[place] [address] [place] [address] Platelet mean volume (PMV) 8.4 7.4-10.4 fL Normal [facility] (44344) Comment: Performed By: #### HEMRADHA BM P3 ####[address] [place] [address] Platelets 103 140-440 10*3/uL Low 05-16-2017 [facility] (38993) Comment: Performed By: #### HEMRADHA BM P3 ####[place] [address] [place] [address] WBC (Leukocytes) 10.5 3.6-10.7 10*3/uL Normal 05-16-2017 [facility] (13169) Comment: Performed By: #### HEMDF BM P3 ####[address] [place] [address] glucose,bedside on 2017-05-16 Glucose mass conc 101 70-100 mg/dL High 05-16-2017 [facility] (62534) Comment: Result Comment: Test perform ed by glucose meter. Results may be 10%-15% lowerthan serum/plasma value s. (CLIA ID [id number]) Performed By: #### HEMDF, BM P3, PCAL ####[address] [place] [address] Glucose mass conc 96 70-100 mg/dL Normal 05-16-2017 [facility] (89077) Comment: Result Comment: Test perform ed by glucose meter. Results may be 10%-15% lowerthan serum/plasma value s. (CLIA ID [id number]) Performed By: #### HEMDF, BM P3, PCAL ####[address] [place] [address] Glucose mass conc 100 70-100 mg/dL Normal 05-16-2017 [facility] (36618) Comment: Result Comment: Test perform ed by glucose meter. Results may be 10%-15% lowerthan serum/plasma value s. (CLIA ID [id number]) Performed By: #### HEMDF, BM P3, PCAL ####[address] [place] [address] Glucose mass conc 103 70-100 mg/dL High 05-16-2017 [facility] (71048) Comment: Result Comment: Test perform ed by glucose meter. Results may be 10%-15% lowerthan serum/plasma value s. (CLIA ID [id number]) Performed By: #### HEMDF, BM P3, PCAL ####[address] [place] [address] Glucose mass conc 105 70-100 mg/dL High 05-16-2017 [facility] (30484) Comment: Result Comment: Test perform ed by glucose meter. Results may be 10%-15% lowerthan serum/plasma value s. (CLIA ID [id number]) Performed By: #### BGLU #### [address] [place] [address] cr spine lumbosacral 2 or 3 views on 2017-05-16 CR Spine Lumbosacral Patient Name: BECKY HUTCHISON 05-16-2017 [facility] [employer] 2 or 3 Views FIN: System ([id number]) [id number] Diagnostic Radiology Exam Date/Time 05/16/2017 01:35:41 EDT Exam CR Spine Lumbosacral 2 or 3 Views Ordering Physician MD DEANGELO, SRI ARITA Accession Number [id number] CPT4 Codes 72612 () Reason For Exam painportable if possible [...] 2017-05-16 Anion gap 9 mmol/L Normal 05-16-2017 [facility] (57888) Comment: Performed By: #### HEMDF, BM P3 ####[address] [place] [address] Creatinine 0.56 0.55-1.40 mg/dL Normal 05-16-2017 [facility] (63164) Comment: Performed By: #### HEMDF, BM P3 ####[address] [address] eGFR (black) >60.0 >60 mL/min/{1.73_m2} Normal 05-16-2017 [facility] (89673) Comment: Performed By: #### HEMDF, BM P3 ####[address] [address] eGFR (non-black) >60.0 >60 mL/min/{1.73_m2} Normal 2016 [facility] (92251) Comment: Result Comment: Source- MDRD equation with creatinine calibration to IDMS(NKDEP)eGFR not recommen ded for drug dose adjustment Performed By: #### HEMDF, BM P3 ####[address] [place] [place] [address] Glucose mass conc 101 70-100 mg/dL High 05-16-2017 [facility] (11860) Comment: Performed By: #### FABRICE ALVA P3 ####[address] [place] [address] Urea nitrogen 10 7-25 mg/dL Normal 05-16-2017 [facility] (02307) Comment: Performed By: #### FABRICE ALVA P3 ####[address] [place] [address] Calcium 8.4 8.2-10.1 mg/dL Normal 05-16-2017 [facility] (47409) Comment: Performed By: #### FABRICE ALVA P3 ####[address] [place] [address] CO2 21 21-32 mmol/L Normal 05-16-2017 [facility] (83122) Comment: Performed By: #### FABRICE ALVA P3 ####[address] [place] [address] Chloride 104 98-109 mmol/L Normal 05-16-2017 [facility] (55387) Comment: Performed By: #### FABRICE ALVA P3 ####[address] [place] [address] Potassium molar conc 3.4 3.5-5.1 mmol/L Low 7 [facility] [employer] [facility] (43315) Comment: Performed By: #### FABRICE ALVA P3 ####[address] [place] [address] Sodium 134 135-145 mmol/L Low 05-16-2017 [facility] (35198) Comment: Performed By: #### FABRICE ALVA P3 ####[address] [place] [address] urinalysis,macro on 2017-05-15 Bilirubin (direct) NEG Negative mg/dL Normal 05-15-2017 [facility] (51081) Comment: Performed By: #### UAMAC ### #[address] [place] [address] Ketone,Urine NEG Negative Normal 05-15-2017 [facility] (82550) Comment: Performed By: #### UAMAC ### #[address] [place] [address] Occult Blood,Ur NEG Negative Normal 05-15-2017 [facility] (70164) Comment: Performed By: #### UAMAC ### #[address] [place] [address] Specific [place],Urine 1.005 1.005-1.030 Normal 05-15 [facility] (01493) Comment: Performed By: #### UAMAC ### #[address] [place] [address] Total Protein,Urine NEG Negative Normal 05-15-2017 [facility] (45598) Comment: Performed By: #### UAMAC ### #[address] [place] [address] Urine, appearance clear Clear Normal 05-15-2017 [facility] (05660) Comment: Performed By: #### UAMAC ### #[address] [facility] [place] [address] Urine, color yellow Lt. Yellow Normal 05-15-2017 [facility] (36332) Comment: Performed By: #### UAMAC ### #[address] [place] [address] Urine, glucose presence NORM Negative Normal 2016 [facility] (18825) Comment: Performed By: #### UAMAC ### #[address] [address] [facility] [place] [address] Urine, nitrite presence NEG Negative Normal 2016 [facility] (58142) Comment: Performed By: #### UAMAC ### [address] [facility] [place] [address] Urine, pH 7.0 5.0-8.0 [pH] Normal 05-15-2017 [facility] (84389) Comment: Performed By: #### UAMAC ### #[address] [place] [address] Urine, urobilinogen NORM 0-1 Normal 05-15-2017 [facility] (45989) Comment: Performed By: #### UAMAC ### [address] [place] [address] WBC (Leukocytes) NEG Negative 10*3/uL Normal 05-15-2017 [facility] (87530) Comment: Performed By: #### UAMAC ### [address] [place] [id number] procalcitonin on 29-05-03 Procalcitonin 0.42 <0.10 ng/mL Abnormal 05-15-2017 [facility] (37002) Comment: Performed By: #### HEMDF, BM P3, PCAL ####[address] [address] Interpretation See Below Normal 05-15-2017 [facility] (27758) Comment: Result Comment: PCT <0.50 = Low risk of severe sepsis and/or septic shock.PCT >2.00 = High risk of severe sepsis and/or septic shock. Performed By: #### HEMDF, BM P3, PCAL ####[place] [id number] hemogram w/ autodiff on 2017-05-15 Abs Baso Cnt 0.0 0.0-0.2 10*3/uL Normal 05-15-2017 [facility] (03893) Comment: Performed By: #### HEMDF, BM P3, PCAL ####[address] [address] Basophils/100 WBC Auto (Bld) 0.1 % Normal 0 05-15-2017 [facility] (59222) Comment: Performed By: #### HEMDF, BM P3, PCAL ####[address] [address] Eosinophils 0.0 0.0-0.5 10*3/uL Normal 05-15-2017 [facility] (95543) Comment: Performed By: #### HEMDF, BM P3, PCAL ####[address] [address] Eosinophils/100 leukocytes 0.3 % Normal [facility] (41225) Comment: Performed By: #### HEMDF, BM P3, PCAL ####[address] [place] [address] Erythrocyte distribution 15.7 11.5-14.5 % High 05-15 [facility] width Auto Ratio (RBC) (22207) Comment: Performed By: #### HEMDF, BM P3, PCAL ####[address] [place] [address] Erythrocytes (RBC) 3.30 4.40-5.90 10*6/uL Low 05-15-2017 [facility] (91916) Comment: Performed By: #### HEMDF, BM P3, PCAL ####[address] [place] [address] Granulocytes/100 WBC (Bld) 81.0 % Normal [facility] (10148) Comment: Performed By: #### HEMDF, BM P3, PCAL ####[address] [place] [address] Hematocrit (HCT) 33.4 40.0-52.0 % Low 05-15-2017 [facility] (58913) Comment: Performed By: #### HEMDF, BM P3, PCAL ####[address] [place] [address] Hemoglobin mass conc (Bld) 11.7 13.0-18.0 g/dL Low [facility] (92134) Comment: Performed By: #### HEMDF, BM P3, PCAL ####[address] [place] [address] Lymphocytes 1.2 1.0-4.3 10*3/uL Normal 05-15-2017 [facility] (47792) Comment: Performed By: #### HEMDF, BM P3, PCAL ####[address] [place] [address] Lymphocytes/100 leukocytes 11.9 % Normal [facility] (20195) Comment: Performed By: #### HEMDF, BM P3, PCAL ####[address] [place] [address] MCH 35.4 26.0-34.0 pg High 05-15-2017 [facility] (82080) Comment: Performed By: #### HEMDF, BM P3, PCAL ####[address] [place] [address] MCHC mass conc (RBC) 35.0 32.0-36.0 % Normal 7 [facility] (67023) Comment: Performed By: #### HEMDF, BM P3, PCAL ####[place] [address] MCV 101.3 80.0-98.0 fL High 05-15-2017 [facility] (19275) Comment: Performed By: #### HEMDF, BM P3, PCAL ####[place] [address] Monocytes 0.7 0.0-0.8 10*3/uL Normal 05-15-2017 [facility] (81850) Comment: Performed By: #### HEMDF, BM P3, PCAL ####[place] [address] Monocytes/100 leukocytes 6.7 % Normal 05-15 [facility] (94054) Comment: Performed By: #### HEMDF, BM P3, PCAL ####[address] [place] [address] Neutrophils 8.3 1.8-7.0 10*3/uL High 05-15-2017 [facility] (15562) Comment: Performed By: #### HEMDF, BM P3, PCAL ####[place] [address] Platelet mean volume (PMV) 8.2 7.4-10.4 fL Normal [facility] (86240) Comment: Performed By: #### HEMDF, BM P3, PCAL ####[address] [place] [address] Platelets 113 140-440 10*3/uL Low 05-15-2017 [facility] (66195) Comment: Performed By: #### HEMDF, BM P3, PCAL ####[place] [address] [place] [address] WBC (Leukocytes) 10.3 3.6-10.7 10*3/uL Normal 05-15-2017 [facility] (14475) Comment: Performed By: #### HEMDF, BM P3, PCAL ####[address] [place] [address] glucose,bedside on 2017-05-15 Glucose mass conc 110 70-100 mg/dL High 05-15-2017 [facility] (34533) Comment: Result Comment: Test perform ed by glucose meter. Results may be 10%-15% lowerthan serum/plasma value s. (CLIA ID [id number]) Performed By: #### BGLU #### [address] [place] [address] culture urine on 29-05-03 CULTURE Specimen Source Comment:Urine, clean catch Normal 05-15-2017 [facility] Patient name: Marti HUTCHISONIndiraR.N.: [id number] : 1955 System Age: 61 Sex: M Ord. (12896) Physician: BARBARA BURDEN Location: [address] [place] [address] Copy to: BARBARA BURDEN Adm. Date: 05/15/17 MICROBIOLOGYORDER#: [id number] COLLECTED: 05/15/17 17:30SOURCE: Urine RECEIVED: 05/15/17 17:55 OE C O M M E N T S Specimen Source Comment:Urine, clean catchCULTURE URINE FINAL 05/16/17 13:0805/16/17No growth (<1,000 CFU/ml). Comment: Performed By: #### HEMDF, BM P3, PCAL ####[address] [address] cr chest 1 view frontal on 2017-05-15 CR Chest 1 View Patient Name: FOSTER, Normal [facility] Frontal BECKY ([id number]) Diagnostic Radiology Exam Date/Time 05/15/2017 17:22:26 EDT Exam CR Chest 1 View Frontal Ordering Physician Harriett BURDEN GARREN Accession Number [id number] CPT4 Codes 80222 () Reason For Exam dyspnea Report PORTABLE [...] 2017-05-15 Anion gap 9 mmol/L Normal 05-15-2017 [facility] (25163) Comment: Performed By: #### HEMDF, BM P3, PCAL ####[address] [address] Creatinine 0.63 0.55-1.40 mg/dL Normal 05-15-2017 [facility] (22342) Comment: Performed By: #### HEMDF, BM P3, PCAL ####[address] [address] eGFR (black) >60.0 >60 mL/min/{1.73_m2} Normal 05-15-2017 [facility] (81293) Comment: Performed By: #### HEMDF, BM P3, PCAL ####[address] [place] [address] eGFR (non-black) >60.0 >60 mL/min/{1.73_m2} Normal 2016 [facility] (17203) Comment: Result Comment: Source- MDRD equation with creatinine calibration to IDMS(NKDEP)eGFR not recommen ded for drug dose adjustment Performed By: #### HEMDF, BM P3, PCAL ####[place] [place] [address] CO2 23 21-32 mmol/L Normal 05-15-2017 [facility] (00701) Comment: Performed By: #### HEMDF, BM P3, PCAL ####[address] [place] [address] Glucose mass conc 106 70-100 mg/dL High 05-15-2017 [facility] (98914) Comment: Performed By: #### HEMDF, BM P3, PCAL ####[address] [place] [address] Urea nitrogen 11 7-25 mg/dL Normal 05-15-2017 [facility] (70625) Comment: Performed By: #### HEMDF, BM P3, PCAL ####[address] [place] [address] Calcium 8.5 8.2-10.1 mg/dL Normal 05-15-2017 [facility] (72763) Comment: Performed By: #### HEMDF, BM P3, PCAL ####[address] [place] [address] Chloride 105 98-109 mmol/L Normal 05-15-2017 [facility] (39375) Comment: Performed By: #### HEMDF, BM P3, PCAL ####[address] [address] Potassium molar conc 3.9 3.5-5.1 mmol/L Normal 7 [facility] (60496) Comment: Performed By: #### HEMDF, BM P3, PCAL ####[address] [place] [address] Sodium 137 135-145 mmol/L Normal 05-15-2017 [facility] (67890) Comment: Performed By: #### HEMDF, BM P3, PCAL ####[place] [address] [place] [address] Vital Signs Vital Sign Description Value / Unit Date Location The following section is limited to 5 en tries per type and includes entries from the following time range: 20200625 - 20200612 4. Body Temperature 97.7 [degF] 06-25-2020 [facility] ([id number]) Body Temperature 98.2 [degF] 06-23-2020 [facility] ([id number]) Body weight 86.18 kg 06-25-2020 [facility] ([id number]) Body weight 86.18 kg 06-23-2020 [facility] ([id number]) BP Diastolic 54 mm[Hg] 06-25-2020 [facility] ([id number]) BP Diastolic 59 mm[Hg] 06-23-2020 [facility] ([id number]) BP Systolic 103 mm[Hg] 06-25-2020 [facility] ([id number]) BP Systolic 122 mm[Hg] 06-23-2020 [facility] ([id number]) Height 175.3 cm 06-25-2020 [facility] ([id number]) Height 175.3 cm 06-23-2020 [facility] ([id number]) Pulse (Heart Rate) 90 /min 06-25-2020 [facility] (55811) Pulse (Heart Rate) 83 /min 06-23-2020 [facility] (76705) Pulse Oximetry 97 % 06-25-2020 [facility] ([id number]) Pulse Oximetry 97 % 06-23-2020 [facility] ([id number]) Respiratory Rate 16 /min 06-25-2020 [facility] ([id number]) Encounters Date Type Reason Provider Location 07-12-2017 Ambulatory Osteomyelitis of Rivera Haynes [facility] Heal th vertebra, site [facility] (000 00) unspecified Jesse Valdivia 06-27-2017 Ambulatory Klebsiella [facility] pneumoniae [K. [facility] (000 00) pneumoniae] as the Jesse Valdivia cause of diseases classified elsewhere 06-14-2017 Ambulatory Encounter for Jesse Valdivia [place] adjustment and Jesse Na[facility] (000 00) management of [place]th[place] vascular access Tanphaichitr device 06-24-2020 Chart abstracting Xi (Dimitrios) [facility] - 06-24-2020 Comment: Dental Clearance - Transplan t 05-28-2017 Evaluation and alf (current) [facility] of use of oral [facility] (0000 0) inpatient hypoglycemic drugs Jesse Valdivia 05-15-2017 Evaluation and Sepsis, unspecified [facility] management of organism [facility] (0000 0) inpatient [place] 06-25-2020 - Patient encounter Awaiting Pulm Fct Lab Pulmonary 06-25-2020 procedure transplantation of [facility] liver Comment: Spirometry 06-25-2020 - Patient Awaiting Anesthesia Tx Transplant 06-25-2020 encounter transplantation of [facility] [place] procedure liver Comment: Liver transplant candidate; DIXON (nonalcoholic steatohep atitis) 06-24-2020 - Patient encounter Drug therapy Ccf Provider [facility] 06-24-2020 procedure finding Transplant Pharmacist Transplant Pharmacist Xi (Rn) José Miguel Bryant (Rn) José Miguel [place] Tayramos Stokes Comment: Encounter for medication rev iew and counseling Patient Education 06-23-2020 - Patient Awaiting [facility] 06-23-2020 encounter transplantation of [place] procedure liver Comment: Liver transplant candidate; DIXON (nonalcoholic steatohep atitis) 05-22-2020 - Patient encounter External [facility] 05-22-2020 procedure Provider 03-17-2020 - Patient encounter Ccf Provider [facility] 03-17-2020 procedure 02-15-2020 - Patient encounter Cc Provider [facility] 02-15-2020 procedure 02-06-2020 - Patient encounter Ccf Provider [facility] 02-06-2020 procedure 03-12-2019 - Patient encounter Cc Provider [facility] 03-12-2019 procedure 01-27-2018 - Patient encounter Cc Provider [facility] 01-27-2018 procedure 11-22-2017 - Patient encounter Cc Provider [facility] 11-22-2017 procedure 07-26-2017 - Patient encounter Cc Provider [facility] 07-26-2017 procedure 04-18-2017 - Patient encounter Cc Provider [facility] 04-18-2017 procedure 06-24-2020 - Results Only [facility] 06-24[facility]2020 [facility] 05-22-2020 - Results Only External External-[facility] 05-22-2020 Provider 03-17-2020 Results Only [facility] Provider [facility] 02-15-2020 Results Only [facility] Provider [facility] 02-06-2020 Results Only [facility] Provider [facility] 03-12-2019 Results Only [facility] 01-27-2018 Results Only [facility] 11-22-2017 Results Only [facility] 07-26-2017 Results Only [facility] 04-18-2017 Results Only [facility] 06-24-2020 - Subsequent Awaiting Ct 2 Main Qb Radiology 06-24-2020 hospital visit by transplantation of (I-Stat) physician liver Comment: Liver transplant candidate [ Z76.82] 06-26-2020 - 06-26-2020 Telephone encounter Win Mariajose Rayo [facility] Clare Perri Ware Comment: Orders 06-24-2020 - Telephone Awaiting Xi (Dimitrios) Transplant Cent er 06-24-2020 encounter transplantation of José Miguel liver Comment: Follow Up 06-20-2020 - Telephone encounter Omero (Rn) Transpla Center 06-20-2020 Aysha Comment: Pt. Ed ( [...] Location Spmtry w/vc expiratory homero w/wo 06-25-2020 [facility] ([id number][facility] mxml vol vntj LVEF TRANSTHORACIC ECHO 06-24-2020 [facility] Tacho [facility] ([id number]) ALLOGEN SOT REC RPT 06-24-2020 Ccf Provider [facility] inic ([id number]) Ct abdomen w/contrast material 06-24-2020 [facility] ([id number]) Ct thorax w/contrast material 06-24-2020 Win Villa Tacho [facility] ([id number]) [object Object] 06-23-2020 [facility] ([id number]) Comment: Result Comment: Total PSA te st methodology used is the Electrochemiluminescence Imm unoassay. Performed By: #### EBVG, VIT A, EVIT, LIPB, HFP, FERR, VZVG2, PTT, IRON, TOXP, BMP, TSH, HREMOP, SARAH LG, VITD, AHAVT, PT, PSAS1, HIV12C, AFP, CMVG, SYPHTX, CBCDIF ####[facility] [id number] [place], [place] [phone]#### A 1APHE ####[facility] [id number] [place], [place] [phone] Antibody screen 06-23-2020 [facility] ([id number]) Comment: Performed By: #### TSCR #### [facility] [id number] [place], [place] [phone] EXTERNAL LAB 05-22-2020 - 05-22-2020 External Provider [facility] ([id number]) EXTERNAL IMAGING 05-22-2020 - 05-22-2020 External Provider [facility] ([id number]) EXTERNAL PROCEDURE 05-22-2020 - 05-22-2020 External Provider [facility] ([id number]) EXTERNAL CARDIOLOGY 05-22-2020 External Provider [facility] ([id number]) XR OUTSIDE CD DICOM 03-17-2020 [facility] ([id number][facility] CT OUTSIDE CD DICOM 02-15-2020 [facility] Provider [facility] ([id number]) XR OUTSIDE CD DICOM 02-06-2020 [facility] ([id number]) US OUTSIDE CD DICOM 03-12-2019 [facility] ([id number]) CT OUTSIDE CD DICOM 01-27-2018 [facility] ([id number]) US OUTSIDE CD DICOM 11-22-2017 Ccf Provider [facility] ([id number]) CT OUTSIDE CD DICOM 07-26-2017 Ccf Provider [facility] ([id number]) US OUTSIDE CD DICOM 04-18-2017 Ccf Provider [facility] in IMPORT ([id number]) Plan of Treatment Plan Description Date Location LIPID SCREEN LIPID SCREEN 06-23-2025 - [facility] 06-23-2025 ([id number]) PROSTATE CANCER PROSTATE CANCER 06-23-2025 - [facility] SCREENING DISCUSSION SCREENING DISCUSSION 06-23-2025 ([id number] ) DIABETES SCREEN DIABETES SCREEN 06-23-2023 - [facility] 06-23-2023 ([id number]) DTAP,TDAP,TD (2 - Td) DTAP,TDAP,TD (2 - Td) 01-08-2023 - [facility] 01-08-2023 ([id number]) LUNG CANCER SCREENING LUNG CANCER SCREENING 06-24-2021 - [facility] 06-24-2021 ([id number]) ACTIVATED PTT ACTIVATED PTT Lab 06-23-2020 - [facility] Routine Liver transplant 06-03-2021 ([id number]) candidate DIXON (nonalcoholic steatohepatitis) Expected: 06/23/2020, Expires: 06/03/2021 Comment: Expected: 06/23/2020, s: 06/03/2021 ALPHA 1 ANTITRYPSIN ALPHA 1 ANTITRYPSIN 06-23-2020 [facility] PHENOTYPE PHENOTYPE Lab Routine 06-03-2021 ([id number]) Liver transplant candidate DIXON (nonalcoholic steatohepatitis) Expected: 06/23/2020, Expires: 06/03/2021 Comment: Expected: 06/23/2020, s: 06/03/2021 ALPHA FETOPROTEIN BL ALPHA FETOPROTEIN BL Lab 06-23-2020 - [facility] Routine Liver transplant 06-03-2021 ([id number]) candidate DIXON (nonalcoholic steatohepatitis) Expected: 06/23/2020, Expires: 06/03/2021 Comment: Expected: 06/23/2020, s: 06/03/2021 BASIC METABOLIC PNL BASIC METABOLIC PNL Lab 06-23-2020 - [facility] Routine Liver transplant 06-03-2021 ([id number]) candidate DIXON (nonalcoholic steatohepatitis) Expected: 06/23/2020, Expires: 06/03/2021 Comment: Expected: 06/23/2020, s: 06/03/2021 BLOOD TB SCREEN no information 06-23-2020 - 06-03-2021 [facility] ([id number]) Comment: Expected: 06/23/2020, s: 06/03/2021 CBC + DIFF CBC + DIFF Lab STAT Liver 06-23-2020 - [facility] transplant candidate DIXON ([id number] ) (nonalcoholic steatohepatitis) Expected: 06/23/2020, Expires: 06/03/2021 Comment: Expected: 06/23/2020, s: 06/03/2021 CMV IGG ANTIBODY BL CMV IGG ANTIBODY BL Lab 06-23-2020 - [facility] Routine Liver transplant 06-03-2021 ([id number]) candidate DIXON (nonalcoholic steatohepatitis) Expected: 06/23/2020, Expires: 06/03/2021 Comment: Expected: 06/23/2020, s: 06/03/2021 CREATININE BLD CREATININE BLD Lab Routine 06-23-2020 - [facility] Liver transplant candidate 06-03-2021 ([id number] 5) DIXON (nonalcoholic steatohepatitis) Expected: 06/23/2020, Expires: 06/03/2021 Comment: Expected: 06/23/2020, s: 06/03/2021 CT LIVER W IVCON CT LIVER W IVCON Radiology 06-23-2020 - [facility] Routine Liver transplant 07-03-2021 ([id number]) candidate DIXON (nonalcoholic steatohepatitis) Expected: 06/23/2020, Expires: 07/03/2021 Comment: Expected: 06/23/2020, s: 07/03/2021 CT CHEST WO IVCON CT CHEST WO IVCON Radiology 06-23-2020 - [facility] Routine Tobacco use Liver 07-03-2021 ([id number] ) transplant candidate DIXON (nonalcoholic steatohepatitis) Expected: 06/23/2020, Expires: 07/03/2021 Comment: Expected: 06/23/2020, s: 07/03/2021 ECG COMPLETE ECG COMPLETE ECG Routine 06-23-2020 - [facility] Liver transplant candidate 06-03-2021 ([id number] 5) DIXON (nonalcoholic steatohepatitis) Expected: 06/23/2020, Expires: 06/03/2021 Comment: Expected: 06/23/2020, s: 06/03/2021 ECHO ECHO Cardiology Routine Liver 06-23-2020 - 06-03 [facility] ([id number]) transplant candidate DIXON (nonalcoholic steatohepatitis) Expected: 06/23/2020, Expires: 06/03/2021 Comment: Expected: 06/23/2020, s: 06/03/2021 EMILIE-ORTEZ VCA IGG EMILIE-ORTEZ VCA IGG Lab 06-23-2020 - [facility] Routine Liver transplant 06-03-2021 ([id number]) candidate DIXON (nonalcoholic steatohepatitis) Expected: 06/23/2020, Expires: 06/03/2021 Comment: Expected: 06/23/2020, s: 06/03/2021 FERRITIN BLD FERRITIN BLD Lab Routine 06-23-2020 - [facility] Liver transplant candidate 06-03-2021 ([id number] 5) DIXON (nonalcoholic steatohepatitis) Expected: 06/23/2020, Expires: 06/03/2021 Comment: Expected: 06/23/2020, s: 06/03/2021 HEP A AB TOTAL HEP A AB TOTAL Lab Routine 06-23-2020 - [facility] Liver transplant candidate 06-03-2021 ([id number] 5) DIXON (nonalcoholic steatohepatitis) Expected: 06/23/2020, Expires: 06/03/2021 Comment: Expected: 06/23/2020, s: 06/03/2021 HEP REMOTE PANEL HEP REMOTE PANEL BL Lab 06-23-2020 - [facility] BL Routine Liver transplant 06-03-2021 ([id number]) candidate DIXON (nonalcoholic steatohepatitis) Expected: 06/23/2020, Expires: 06/03/2021 Comment: Expected: 06/23/2020, s: 06/03/2021 HEPATIC FUNCTION HEPATIC FUNCTION PNL Lab 06-23-2020 - [facility] PNL Routine Liver transplant 06-03-2021 ([id number]) candidate DIXON (nonalcoholic steatohepatitis) Expected: 06/23/2020, Expires: 06/03/2021 Comment: Expected: 06/23/2020, s: 06/03/2021 HIV 1 2 COMBO(AG/AB),WITH HIV 1 2 COMBO(AG/AB),WITH 06-23-2020 - [facility] REFLEX TO DIFFERENTIATION REFLEX TO DIFFERENTIATION 06-03-2021 ([id number]) Lab Routine Liver transplant candidate DIXON (nonalcoholic steatohepatitis) Expected: 06/23/2020, Expires: 06/03/2021 Comment: Expected: 06/23/2020, s: 06/03/2021 IRON + TIBC IRON + TIBC Lab Routine Liver 06-23-2020 - 06-03 [facility] transplant candidate DIXON ([id number] ) (nonalcoholic steatohepatitis) Expected: 06/23/2020, Expires: 06/03/2021 Comment: Expected: 06/23/2020, s: 06/03/2021 LIPID PANEL BASIC LIPID PANEL BASIC Lab 06-23-2020 - [facility] Routine Liver transplant 06-03-2021 ([id number]) candidate DIXON (nonalcoholic steatohepatitis) Expected: 06/23/2020, Expires: 06/03/2021 Comment: Expected: 06/23/2020, s: 06/03/2021 LIVER REC INIT LIVER REC INIT W/U ALLOGEN 06-23-2020 - [facility] W/U Routine Liver transplant 06-03-2021 ([id number]) candidate DIXON (nonalcoholic steatohepatitis) Expected: 06/23/2020, Expires: 06/03/2021 Comment: Expected: 06/23/2020, s: 06/03/2021 PROTHROMBIN TIME/PT PROTHROMBIN TIME/PT Lab 06-23-2020 - [facility] STAT Liver transplant 06-03-2021 ([id number]) candidate DIXON (nonalcoholic steatohepatitis) Expected: 06/23/2020, Expires: 06/03/2021 Comment: Expected: 06/23/2020, s: 06/03/2021 PSA/PROSTSPECAG SCRN PSA/PROSTSPECAG SCRN Lab 06-23-2020 - [facility] Routine Encounter for 06-03-2021 ([id number]) screening for malignant neoplasm of prostate Liver transplant candidate DIXON (nonalcoholic steatohepatitis) Expected: 06/23/2020, Expires: 06/03/2021 Comment: Expected: 06/23/2020, s: 06/03/2021 RUBEOLA (MEASLES)IGG RUBEOLA (MEASLES)IGG Lab 06-23-2020 - [facility] Routine Liver transplant 06-03-2021 ([id number]) candidate DIXON (nonalcoholic steatohepatitis) Expected: 06/23/2020, Expires: 06/03/2021 Comment: Expected: 06/23/2020, s: 06/03/2021 SPIROMETRY BASELINE SPIROMETRY BASELINE ONLY 06-23-2020 - [facility] ONLY Procedures Routine Liver 07-03-2021 ([id number]) transplant candidate DIXON (nonalcoholic steatohepatitis) Expected: 06/23/2020, Expires: 07/03/2021 Comment: Expected: 06/23/2020, s: 07/03/2021 SYPHILIS TOTAL SYPHILIS TOTAL W/REFLEX Lab 06-23-2020 - [facility] W/REFLEX Routine Liver transplant 06-03-2021 ([id number]) candidate DIXON (nonalcoholic steatohepatitis) Expected: 06/23/2020, Expires: 06/03/2021 Comment: Expected: 06/23/2020, s: 06/03/2021 TOX SCREEN ROUT TOX SCREEN ROUT UR Lab 06-23-2020 - [facility] UR Routine Liver transplant 06-03-2021 ([id number]) candidate DIXON (nonalcoholic steatohepatitis) Expected: 06/23/2020, Expires: 06/03/2021 Comment: Expected: 06/23/2020, s: 06/03/2021 TOXICOLOGY PANEL BLD TOXICOLOGY PANEL BLD Lab 06-23-2020 [facility] Routine Liver transplant 06-03-2021 ([id number]) candidate DIXON (nonalcoholic steatohepatitis) Expected: 06/23/2020, Expires: 06/03/2021 Comment: Expected: 06/23/2020, s: 06/03/2021 TRANSPLANT CONFIRM TRANSPLANT CONFIRM ABO/RH 06-23-2020 [facility] ABO/RH Blood Bank Routine Liver 06-03-2021 ([id number]) transplant candidate DIXON (nonalcoholic steatohepatitis) Expected: 06/23/2020, Expires: 06/03/2021 Comment: Expected: 06/23/2020, s: 06/03/2021 TSH BLD TSH BLD Lab Routine Liver 06-23-2020 - [facility] transplant candidate DIXON ([id number] ) (nonalcoholic steatohepatitis) Expected: 06/23/2020, Expires: 06/03/2021 Comment: Expected: 06/23/2020, s: 06/03/2021 TYPE + SCREEN TYPE + SCREEN Blood Bank 06-23-2020 - [facility] STAT Liver transplant 06-03-2021 ([id number]) candidate DIXON (nonalcoholic steatohepatitis) Expected: 06/23/2020, Expires: 06/03/2021 Comment: Expected: 06/23/2020, s: 06/03/2021 VARICELLA ZOSTER IGG VARICELLA ZOSTER IGG Lab 06-23-2020 - [facility] Routine Liver transplant 06-03-2021 ([id number]) candidate DIXON (nonalcoholic steatohepatitis) Expected: 06/23/2020, Expires: 06/03/2021 Comment: Expected: 06/23/2020, s: 06/03/2021 VITAMIN A/RETINOL VITAMIN A/RETINOL Lab 06-23-2020 [facility] Routine Liver transplant 06-03-2021 ([id number]) candidate DIXON (nonalcoholic steatohepatitis) Expected: 06/23/2020, Expires: 06/03/2021 Comment: Expected: 06/23/2020, s: 06/03/2021 VITAMIN D 25 VITAMIN D 25 HYDROXY Lab 06-23-2020 [facility] HYDROXY Routine Liver transplant 06-03-2021 ([id number]) candidate DIXON (nonalcoholic steatohepatitis) Expected: 06/23/2020, Expires: 06/03/2021 Comment: Expected: 06/23/2020, s: 06/03/2021 VITAMIN E/TOCOPHEROL VITAMIN E/TOCOPHEROL Lab 06-23-2020 [facility] Routine Liver transplant 06-03-2021 ([id number]) candidate DIXON (nonalcoholic steatohepatitis) Expected: 06/23/2020, Expires: 06/03/2021 Comment: Expected: 06/23/2020, s: 06/03/2021 INFLUENZA (#1) INFLUENZA (#1) 2020 - [facility] 05-13-2020 ([id number]) PROSTATE CANCER SCREENING PROSTATE CANCER SCREENING 2012 - [facility] DISCUSSION DISCUSSION 2012 ([id number]) SHINGRIX VACCINE (1 of 2) SHINGRIX VACCINE (1 of 2) 2007 - [facility] 2007 ([id number]) COLORECTAL CANCER COLORECTAL CANCER 2007 - [facility]ic SCREENING,SEE MODIFIER SCREENING,SEE MODIFIER 2007 (4 5204) DIABETES SCREEN DIABETES SCREEN 2002 - [facility] 2002 (01305) LIPID SCREEN LIPID SCREEN 1992 - [facility] 1992 (59360) DTAP,TDAP,TD (1 - Tdap) DTAP,TDAP,TD (1 - Tdap) 1976 - [facility] 1976 (12973) HEPATITIS C SCREENING HEPATITIS C SCREENING 1975 - [facility] 1975 (49186) HIV SCREENING HIV SCREENING 1975 - [facility] 1975 (69087) ALLOGEN SOT REC RPT ALLOGEN SOT REC RPT Lab [facility] Routine 06/24/2020 9:19 AM (4419 5) EDT PHOSPHATIDYLETHANOL (PETH) PHOSPHATIDYLETHANOL (PETH) 06-24-2021 [facility] Lab Routine Liver ([id number]) transplant candidate 1 Occurrences starting 06/24/2020 until 06/24/2021 Comment: 1 Occurrences starting 06/24 until 06/24/2021 no information [facility] ([id number]) The following information is from the original [...] Influenza Seasonal influenza, injectable, (completed) 06-12-2020 - [facility] Inj Quad Age 6 quadrivalent, 06-12-2020 (80155) Mo-64 Yrs Pres Free preservative free Influenza Seasonal influenza, injectable, (completed) 07-19-2019 - [facility] Inj Quad Age 6 quadrivalent, 07-19-2019 (46412) Mo-64 Yrs Pres Free preservative free Influenza Seasonal influenza, injectable, (completed) 07-14-2018 - [facility] Inj Quad Age 6 quadrivalent, 07-14-2018 (16032) Mo-64 Yrs Pres Free preservative free Influenza Seasonal influenza, injectable, (completed) 07-13-2017 - [facility] Inj Quad Age 6 quadrivalent, 07-13-2017 (84686) Mo-64 Yrs Pres Free preservative free Influenza influenza, seasonal, (completed) 2014 - [facility] injectable 2014 (17234) Pneumovax pneumococcal (completed) 05-03-2017 - [facility] polysaccharide vaccine, 05-03-2017 (441 95) 23 valent Tdap (Age 7+) tetanus toxoid, reduced (completed) 01-08-2013 - [facility] diphtheria toxoid, and 01-08-2013 (4419 5) acellular pertussis vaccine, adsorbed Payers Payer Name Policy Number Location [employer] [id number] [facility] (44 195) [facility] ([id number]) The following information is from the original human readable contentNo Payer Records FoundNo Payer Records FoundNo Payer Records FoundNo Payer Records FoundNo Payer Records Found Social History Type Social History Date Location Description Tobacco smoking status Unknown if ever smoked 06-03-2020 - [facility] 06-03-2020 (25979) Sex Assigned At Not on file [facility] (04606) Exposure to SARS-CoV-2 Unable to assess [facility] (event) (19002) Exposure to SARS-CoV-2 Not sure [facility] (event) (67356) Tobacco [facility] status [facility]00866[facility] History of tobacco use Current smoker 03-15-2010 [facility] (82645) History of tobacco use Cigarette Smoker 03-15-2010 [facility] (30636) Cigarettes smoked 06-25-2020 - [facility] ic current (pack per day) 06-25-2020 (68300) - Reported Tobacco use and Never used 06-25-2020 - [facility] exposure 06-25-2020 (04444) The following information is from the original [...] PATIENT VISIT LEVEL [address] [place] [address] Status Reason Specialty Diagnoses / Referred By Referred To Procedures Contact Contact Pending Review PCP Requested Dermatology Diagnoses Liver transplant candidate DIXON (nonalcoholic steatohepatitis) [place] Referral Procedures CONSULT TO DERMATOLOGY NEW PATIENT VISIT LEVEL [address] [place] [address] Status Reason Specialty Diagnoses / Referred By Referred To Procedures Contact Contact Pending Review PCP Requested Cardiology Diagnoses Liver transplant candidate DIXON (nonalcoholic steatohepatitis) [facility] [place] Referral Procedures CONSULT TO CARDIOLOGY NEW PATIENT VISIT LEVEL [address] [place] [address] Status Reason Specialty Diagnoses / Referred By Referred To Procedures Contact Contact Pending Review PCP Requested Nutrition Diagnoses Liver transplant candidate DIXON (nonalcoholic steatohepatitis) [place] Referral Procedures CONSULT TO NUTRITION THERAPY NEW PATIENT VISIT LEVEL [address] [facility] [place] [address] Status Reason Specialty Diagnoses / Referred By Referred To Procedures Contact Contact Pending PCP Requested Infectious Diagnoses Liver transplant candidate DIXON (nonalcoholic steatohepatitis) [place] [facility] Referral Diseases Procedures CONSULT TO INFECTIOUS DISEASES NEW PATIENT VISIT LEVEL 5 [place] [address] Status Reason Specialty Diagnoses / Referred By Referred To Procedures Contact Contact Pending Review PCP Requested Diagnoses Liver transplant candidate DIXON (nonalcoholic steatohepatitis) [facility] [place] Referral Procedures CONSULT TO HEPATOLOGY NEW PATIENT VISIT LEVEL [address] [place] [address] Status Reason Specialty Diagnoses / Referred By Referred To Procedures Contact Contact Pending PCP Requested Anesthesiology Diagnoses Liver transplant candidate DIXON (nonalcoholic steatohepatitis) [place] [facility] Referral Procedures CONSULT TO ANESTHESIOLOGY NEW PATIENT VISIT LEVEL [address] [place] [address] Assessments Diagnosis Encounter for screening for malignant [...] Records Found History of Present Illness Sunny (Respiratory Care Program Director)Olivier - 06/24/2020 1:30 PM EDT Pre-Transplant Pharmacotherapy Evaluation Patient Name: Becky Hutchison Date of Service: June 24, 2020 Mr. Hutchison is a 64 year old male who presents to the clinic today for pre-liver transplantation pharmacotherapy evaluation. Patient presents to clinic with DIXON. MELD-Na score 22. PMH includes obesity, hypertension, CAD (PCI 2009 s/p [place]), depression, anxiety, BPH, COPD. Allergies: ALLERGIES Not on File Preferred Pharmacy e- [facility] [place] [phone] - [address] [facility] - [phone] [address] [facility] [phone] Evaluation of current pharmacotherapy: Current Outpatient Rx [...] would preclude transplant in this patient. Ryland Woods PharmD PGY2 Solid Organ Transplant Respiratory Care Program Director [phone] documented in this encounterXi Barksdale (Rn), RN - 06/24/2020 4:33 PM EDT Met with patient/family to discuss the following information: [x] Patient was provided the Surgical Site Infection FAQ sheet [x] SRTR information provided and questions answered. Informed patient to call cosmetic account coordinator with any questions [x] Patient was provided the UNOS brochure on multiple listing and waiting time transfer [x]Evaluation process including presentation to selection committee, OSOTC approval and listing criteria reviewed [x]Surgical procedure, including post-operative management, hospitalization, lifelong immunosuppressive medications and their side effects (including the risk for hypertension, diabetes, kidney problems and cancers) and terminal make up operator follow up after transplant. Possibility of recurrent disease discussed with patient. [x]Patient is aware of the potential medical, surgical or psychosocial risks [x] Patient is aware that they will need a memory care program resident to be available for the first 8-12 [...] protected health information would be released to OSOT and OS in order to be placed on the OS waiting list for a donor organ. [x] Patient told that my medical information and procedures, without revealing my identity may be used for teaching and research activities. [x] Patient told they are responsible for arranging for payment for costs that are not covered by insurance. Patient advised that insurance approval is needed prior to listing. [x] Patient told that the [facility] is a teaching facility and part of care, underthe guidance of my physicians, may be conducted by Residents, [place] and students. [x]Patient advised that transplants not [...] to listing. [x] Patient told that the [facility] is a teaching facility and part of care, underthe guidance of my physicians, may be conducted by Residents, [place] and students. [x]Patient advised that transplants not [...] Department: TRANSPLANT CENTER documented in this encounterXi Barksdale Rn, RN - 06/24/2020 4:35 PM EDT Patient provided dental clearance form completed by local dentist. Pt seen 06/12/20 and is free from active disease and infection, no work needs to be completed at this time. Dental office phone [phone]. Form in file. Xi Barksdale RN documented [...] June 24, 2020 8:16 AM Sirena Ibrahim Rn, DIMITRIOS - 06/24/2020 8:00 AM EDT Radiology [...] IDENTIFYING INFORMATION: Patient prefers to be called: Alexsander Age: [age] year old Lives now: Becky Hutchison [phone] [id number] [facility] [id number] [address] [facility] IMPRESSION: Social Support Pt has strong support from his [place] who will be his primary caregiver post-transplant. Pt's secondary caregivers will be his son Baldomero and daughter Carmen. Insurance/Financial Pt medical / prescription coverage is under [facility] and is transitioning to skilled nursing disability policy through his work. Pt will have skilled nursing disability until he reaches the age to [...] Dr. Valdivia Do you have any moral, uatsdin, or ethnic views against transplant: no Have you ever been transplanted, evaluated, or listed at another center: No PERSONAL HISTORY: Citizenship Where were you born: [facility] Race/ethnicity: White Primary language: New Zealander Grew up where: [place] Parental information: Both parents Sibling information: 4 [...] and one son; one daughter is in [place] FUNCTIONING ABILITIES & HOME ENVIRONMENT: Home set [...] illness, who will transport: Can patient and/or memory care program resident identify the medications: Pt is aware but [...] on a permanent campsite FINANCIAL: Medical insurance: [employer] through Pt employment. 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 and have flexibility with their jobs Other [...] to his Are you a spiritual or uatsdin person: sometimes, believes in God What are [...] continue with abstinence Does the patient meet [facility] chemical dependency guidelines: Yes LEGAL ISSUES Do you have a history of any legal issues: No If yes, please specify: N/A Are you currently or have you ever been on probation or parole: No Do you have or have you ever had any warrants out for your arrest: No Have you had any substance related legal problems: No 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 Hospital post transplant volunteer visit: Sherly 19 precautions prohibit History of working with biomedical field service engineer: No issues reported. Compliance concerns: No problems [...] hospital recovery time, hospital stay, discharge, terminal make up operator recovery. Yes reviewed ADVANCE DIRECTIVES: Durable power of city attorney: Pt and are interested. MIKA provided education and will mail as requested Living will: None Information given: Will mail if pt is not able to obtain on line or at next [facility] appointment. Overall impression, plan, and recommendation are listed at the beginning of the assessment for ease of communication and continuity of care purposes. EDGARD Alvarez, [facility] Liver Transplant Team Social Work documented in this encounterOWin Prater Marbin - 06/23/2020 2:39 PM EDT 64 yo man referred for further evaluation of need for OLT by Dr. 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 [facility] provides no warranty or guarantee of the accuracy or completeness of information in this document. UNRECOGNIZED CONTENT PROVIDED BELOW FOR UNRECOGNIZED SECTION Source Comments In the event this information is protected by the Federal Confidentiality of Alcohol and Drug Abuse Patient Records regulations: The Federal rules restrict any use of the information to criminally investigate or prosecute any alcohol or drug abuse patient.[facility] the event this information is protected by the Federal Confidentiality of Alcohol and Drug Abuse Patient Records regulations: The Federal rules restrict any use of the information to criminally investigate or prosecute any alcohol or drug abuse patient.[facility] the event this information is protected by the Federal Confidentiality of Alcohol and Drug Abuse Patient Records regulations: The Federal rules restrict any use of the information to criminally investigate or prosecute any alcohol or drug abuse patient.[facility] the event this information is protected by the Federal Confidentiality of Alcohol and Drug Abuse Patient Records regulations: The Federal rules restrict any use of the information to criminally investigate or prosecute any alcohol or drug abuse patient.[facility] HospitalIn the event this information is protected by the Federal Confidentiality of Alcohol and Drug Abuse Patient Records regulations: The Federal rules restrict any use of the information to criminally investigate or prosecute any alcohol or drug abuse patient.[facility] HospitalIn the event this information is protected by the Federal Confidentiality of Alcohol and Drug Abuse Patient Records regulations: The Federal rules restrict any use of the information to criminally investigate or prosecute any alcohol or drug abuse patient.[facility] Hospital[facility] the event this information is protected by the Federal Confidentiality of Alcohol and Drug Abuse Patient Records regulations: The Federal rules restrict any use of the information to criminally investigate or prosecute any alcohol or drug abuse patient.[facility] HospitalIn the event this information is protected by the Federal Confidentiality of Alcohol and Drug Abuse Patient Records regulations: The Federal rules restrict any use of the information to criminally investigate or prosecute any alcohol or drug abuse patient.[facility] HospitalIn the event this information is protected by the Federal Confidentiality of Alcohol and Drug Abuse Patient Records regulations: The Federal rules restrict any use of the information to criminally investigate or prosecute any alcohol or drug abuse patient.[facility] HospitalIn the event this information is protected by the Federal Confidentiality of Alcohol and Drug Abuse Patient Records regulations: The Federal rules restrict any use of the information to criminally investigate or prosecute any alcohol or drug abuse patient.[facility] HospitalIn the event this information is protected by the Federal Confidentiality of Alcohol and Drug Abuse Patient Records regulations: The Federal rules restrict any use of the information to criminally investigate or prosecute any alcohol or drug abuse patient.[facility] HospitalIn the event this information is protected by the Federal Confidentiality of Alcohol and Drug Abuse Patient Records regulations: The Federal rules restrict any use of the information to criminally investigate or prosecute any alcohol or drug abuse patient.[facility] HospitalIn the event this information is protected by the Federal Confidentiality of Alcohol and Drug Abuse Patient Records regulations: The Federal rules restrict any use of the information to criminally investigate or prosecute any alcohol or drug abuse patient.[facility] HospitalIn the event this information is protected by the Federal Confidentiality of Alcohol and Drug Abuse Patient Records regulations: The Federal rules restrict any use of the information to criminally investigate or prosecute any alcohol or drug abuse patient.[facility] HospitalIn the event this information is protected by the Federal Confidentiality of Alcohol and Drug Abuse Patient Records regulations: The Federal rules restrict any use of the information to criminally investigate or prosecute any alcohol or drug abuse patient.[facility] HospitalIn the event this information is protected by the Federal Confidentiality of Alcohol and Drug Abuse Patient Records regulations: The Federal rules restrict any use of the information to criminally investigate or prosecute any alcohol or drug abuse patient.[facility] HospitalIn the event this information is protected by the Federal Confidentiality of Alcohol and Drug Abuse Patient Records regulations: The Federal rules restrict any use of the information to criminally investigate or prosecute any alcohol or drug abuse patient.[facility] HospitalIn the event this information is protected by the Federal Confidentiality of Alcohol and Drug Abuse Patient Records regulations: The Federal rules restrict any use of the information to criminally investigate or prosecute any alcohol or drug abuse patient.[facility] HospitalIn the event this information is protected by the Federal Confidentiality of Alcohol and Drug Abuse Patient Records regulations: The Federal rules restrict any use of the information to criminally investigate or prosecute any alcohol or drug abuse patient.[facility] HospitalIn the event this information is protected by the Federal Confidentiality of Alcohol and Drug Abuse Patient Records regulations: The Federal rules restrict any use of the information to criminally investigate or prosecute any alcohol or drug abuse patient.[facility] HospitalIn the event this information is protected by the Federal Confidentiality of Alcohol and Drug Abuse Patient Records regulations: The Federal rules restrict any use of the information to criminally investigate or prosecute any alcohol or drug abuse patient.[facility] HospitalIn the event this information is protected by the Federal Confidentiality of Alcohol and Drug Abuse Patient Records regulations: The Federal rules restrict any use of the information to criminally investigate or prosecute any alcohol or drug abuse patient.[facility] HospitalIn the event this information is protected by the Federal Confidentiality of Alcohol and Drug Abuse Patient Records regulations: The Federal rules restrict any use of the information to criminally investigate or prosecute any alcohol or drug abuse patient.[facility] HospitalIn the event this information is protected by the Federal Confidentiality of Alcohol and Drug Abuse Patient Records regulations: The Federal rules restrict any use of the information to criminally investigate or prosecute any alcohol or drug abuse patient.[facility] HospitalIn the event this information is protected by the Federal Confidentiality of Alcohol and Drug Abuse Patient Records regulations: The Federal rules restrict any use of the information to criminally investigate or prosecute any alcohol or drug abuse patient.[facility] HospitalIn the event this information is protected by the Federal Confidentiality of Alcohol and Drug Abuse Patient Records regulations: The Federal rules restrict any use of the information to criminally investigate or prosecute any alcohol or drug abuse patient.[facility] HospitalIn the event this information is protected by the Federal Confidentiality of Alcohol and Drug Abuse Patient Records regulations: The Federal rules restrict any use of the information to criminally investigate or prosecute any alcohol or drug abuse patient.[facility] HospitalIn the event this information is protected by the Federal Confidentiality of Alcohol and Drug Abuse Patient Records regulations: The Federal rules restrict any use of the information to criminally investigate or prosecute any alcohol or drug abuse patient.[facility] HospitalIn the event this information is protected by the Federal Confidentiality of Alcohol and Drug Abuse Patient Records regulations: The Federal rules restrict any use of the information to criminally investigate or prosecute any alcohol or drug abuse patient.[facility] HospitalIn the event this information is protected by the Federal Confidentiality of Alcohol and Drug Abuse Patient Records regulations: The Federal rules restrict any use of the information to criminally investigate or prosecute any alcohol or drug abuse patient.[facility] HospitalIn the event this information is protected by the Federal Confidentiality of Alcohol and Drug Abuse Patient Records regulations: The Federal rules restrict any use of the information to criminally investigate or prosecute any alcohol or drug abuse patient.[facility] HospitalIn the event this information is protected by the Federal Confidentiality of Alcohol and Drug Abuse Patient Records regulations: The Federal rules restrict any use of the information to criminally investigate or prosecute any alcohol or drug abuse patient.[facility] HospitalIn the event this information is protected by the Federal Confidentiality of Alcohol and Drug Abuse Patient Records regulations: The Federal rules restrict any use of the information to criminally investigate or prosecute any alcohol or drug abuse patient.[facility] HospitalIn the event this information is protected by the Federal Confidentiality of Alcohol and Drug Abuse Patient Records regulations: The Federal rules restrict any use of the information to criminally investigate or prosecute any alcohol or drug abuse patient.[facility] HospitalIn the event this information is protected by the Federal Confidentiality of Alcohol and Drug Abuse Patient Records regulations: The Federal rules restrict any use of the information to criminally investigate or prosecute any alcohol or drug abuse patient.[facility] UNRECOGNIZED CONTENT PROVIDED BELOW FOR UNRECOGNIZED SECTION Reason for Visit Reason Comments Spirometry Status Reason Specialty Diagnoses / Referred By Referred To Procedures Contact Contact Authorized PCP Requested TRANSPLANT Diagnoses Nonalcoholic steatohepatitis Jabour, Trac Txp Ctr Referral Procedures CONSULT TO [...] [address] Required - OON PAUL[place] [address] [id number] Financial [id number] Phone: Clearance Not Phone: Required [phone] Reason Comments Referral - Liver Txp Intake Reason Comments Referral - Liver Txp Intake - LM Reason Comments Reminder Call OLT Eval Appt's COVID19 Screening Reason Comments Pt. Ed ( Informed Consent) Status Reason Specialty Diagnoses / Referred By Referred To Procedures Contact Contact Authorized PCP Requested TRANSPLANT Diagnoses Nonalcoholic steatohepatitis Jabour, Trac Txp Ctr Referral Procedures CONSULT TO [...] [address] Required - OON PA[place]INE [address] [id number] [place] [address] Phone: Clearance Not Phone: Required [phone] Reason Comments Patient Education Reason Comments Dental Clearance - Transplant Reason Comments Follow Up Reason Comments Radiology CT Reason Comments Orders UNRECOGNIZED CONTENT PROVIDED BELOW FOR UNRECOGNIZED SECTION Miscellaneous Notes Telephone Encounter - Parvin Puente (Rn), RN - 06/03/2020 3:05 PM EDT [facility] Referral for Liver Transplant This is a [...] someone accompanythem to appointments (explained current [facility] visitation policy regarding outpatient visits due to COVID 19). All questions answered. Contact information provided and advised to call our office with any q uestions/concerns or schedule changes. Will schedule eval week of 06/23/20, pt will sign up for [employer] for virtual access. Parvin Puente RN MELD [...] (HCC) ? SARWAT (iron deficiency anemia) ? [place], 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 ? Thrombocytopenia (HCC) [...] pt to return call to the office. Parivn Puente RN documented in this encounterTelephone Encounter - Sirena Zuniga (Trans) - 06/19/2020 11:43 AM EDTSpoke with patient's [...] documented in this encounterTelephone Encounter - Omero Henry) RN - 06/20/2020 10:39 AM EDTThe following information has been provided/discussed with the patient/family during Shared Medical Appointment education zoom class. ? Informed Consent for Organ Transplant Program Participation version 2019. ? SRTR information provided and questions answered. Informed patient to call cosmetic account coordinator with any questions. ? UNOS information regarding multiple listings for organ transplantation ? A copy of [place] solid Organ Transplant Consortium (OSOTC) criteria. The information was reviewed with patient and all questions answered. ? Evaluation process including presentation to selection committee, OSOTC approval and listing criteria ? Surgical procedure, including post-operative management, hospitalization, immunosuppressive medications and their side effects (including the risk for hypertension, diabetes, kidney problems and cancers) and terminal make up operator follow up after transplant. Possibility of recurrent [...] also addressed ? Patient was provided with [facility] information sheet regarding transplantation of [...] B. INFORMED CONSENT Becky Hutchison Medical Record: [id number] Informed consent for Organ Transplant Program Participation [...] have questions answered. Omero Henry RN, MSN, [facility] Liver Dry House Tender June 20, 2020 documented in this encounterTelephone [...] SECTION INFORMATION SOURCE DATE CREATED AUTHOR AUTHOR'S ORGANIZATIO N 03/07/2018 [facility] [employer] DATE CREATED AUTHOR AUTHOR'S ORGANIZATIO N 06/18/2020 [facility] Found ation ([place]) DATE CREATED AUTHOR AUTHOR'S ORGANIZATIO N 06/29/2020 [facility] UNRECOGNIZED CONTENT PROVIDED BELOW FOR UNRECOGNIZED SECTION [...] COPD. Patient had PCI in 2009 s/p [place]. Since then, no stresstest. Patient was 4 [...] (HCC) ? SARWAT (iron deficiency anemia) ? [place], 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 ? Thrombocytopenia (HCC) [...] Ruth Ann Reyes MD PATIENT NAME: Becky Hutchison DATE: June 25, 2020 TIME: 9:53 AM PAGER/CONTACT #: documented in this encounter
== END ==
PROVIDERS: PCP Family Medicine; Referring Provider Internal Medicine Hematology & Oncology; Visit Provider Internal Medicine Hematology & Oncology
DX: D69.6 Thrombocytopenia, unspecified (principal); Z87.891 Personal history of nicotine dependence; K74.60 Unspecified cirrhosis of liver; N39.0 Urinary tract infection, site not specified; D72.819 Decreased white blood cell count, unspecified; D50.0 Iron deficiency anemia secondary to blood loss (chronic); D63.8 Anemia in other chronic diseases classified elsewhere
CPT/HCPCS: 38221; 36415; 77012; 85025; 85610; 85730; 88305; 88311; 88313; 99156; J7040; A4216

== ENCOUNTER → 2020-03-21 15:53 | Outpatient (CLI) | payer OTHER, SELFPAY ==
[2020-03-19 15:34] VITALS: BMI 35.1
[2020-03-21 17:42] LABS: ALB/GLOB Ratio 0.6 RATIO (0.9-2.4); AST(SGOT) 49 U/L (15-37); Alanine Aminotransfer ALT/SGPT 34 U/L (16-61); Albumin, Serum 2.5 g/dL (3.2-5.0); Alkaline Phosphatase 226 U/L (45-117); Anion Gap 7 (5-15); BUN 10 mg/dL (7-18); BUN/Creat Ratio 11.9 RATIO (10-20); Calcium,Total 7.9 mg/dL (8.5-10.1); Chloride 108 mmol/L (98-107); Creatinine, Serum 0.84 mg/dL (0.70-1.30); EST Glomerular Filtration Rate 98 mL/min (>60); Est Glom Filt Rate - Afr Amer 119 mL/min (>60); Globulin 4.3 g/dL (2.2-4.2); Glucose 153 mg/dL (74-106); Potassium 3.5 mmol/L (3.5-5.1); Protein, Total 6.8 g/dL (6.4-8.2); Sodium Level 140 mmol/L (136-145)
[2020-03-21 17:55] LABS: International Normalized Ratio 1.5; Prothrombin Time (Protime)PT. 17.4 SECONDS (11.7-14.9)
[2020-03-21 17:56] LABS: Partial Thromboplast Time 31.1 Seconds (24.1-36.2)
== END ==
PROVIDERS: PCP Family Medicine; Referring Provider Internal Medicine Gastroenterology; Visit Provider Internal Medicine Gastroenterology
DX: K74.60 Unspecified cirrhosis of liver (principal)
CPT/HCPCS: 36415; 80053; 85610; 85730

== ENCOUNTER → 2020-06-05 13:07 | Outpatient (CLI) | payer OTHER, SELFPAY ==
[2020-05-29 12:06] VITALS: BMI 31.6
--- NOTE | 2020-06-05 13:10 | US_ITS ---
PROCEDURE: Ultrasound guided paracentesis. DATE OF EXAMINATION: 06/05/2020. INDICATION: Male, 64 years old. Ascites. PHYSICIAN: Ted Melara M.D. TECHNIQUE: The risks, benefits, and alternatives to the procedure were explained to the patient. The specific risks of bleeding, infection, and damage to bowel were detailed and accepted. Witnessed informed consent was obtained. The abdomen was ultrasonographically surveyed. An appropriate pocket of fluid was identified at the right lower quadrant. The skin were cleaned and prepped in the usual sterile fashion. Using ultrasound guidance, the peritoneal cavity was accessed with a 5-Colombian paracentesis needle/catheter system. The trocar was removed. A total of 5750 ml of eugenio-colored fluid were removed from the peritoneal cavity. The catheter was removed and a sterile dressing was applied. The procedure was well tolerated. US/Paracentesis with US IMPRESSION: Ultrasound guided paracentesis. Electronically Signed: Ted Melara, at 14:48 EDT , Service support ,
[2020-06-05 15:02] VITALS: BP 117/65; BP 121/64; BP 126/64; PULSE 87; PULSE 91; RESP 14; RESP 16; TEMP 37.2; O2SAT 100; O2SAT 99
== END ==
PROVIDERS: PCP Family Medicine; Referring Provider Internal Medicine Gastroenterology; Visit Provider Internal Medicine Gastroenterology
DX: K74.60 Unspecified cirrhosis of liver (principal); R18.8 Other ascites
CPT/HCPCS: 49083

== ENCOUNTER → 2020-06-17 14:36 | Outpatient (CLI) | payer OTHER, SELFPAY ==
[2020-05-29 12:06] VITALS: BMI 31.6
--- NOTE | 2020-06-17 14:39 | US_ITS ---
PROCEDURE: ULTRASOUND GUIDED PARACENTESIS CLINICAL HISTORY: Male, 64 years old. ASCITES CONSENT: The risks, benefits and alternatives to the procedure were explained to the patient, and the patient agreed to the procedure and signed the consent. SEDATION: Local Anesthesia STERILE BARRIER TECHNIQUE: The following sterile barrier precautions were used during the procedure: hand hygiene; use of 2% chlorhexidine aseptic; use of a cap, mask, sterile gown, sterile gloves, sterile full body drape, and a large sterile sheet. PROCEDURE/TECHNIQUE: The risks, benefits, and alternatives to the procedure were explained to patient, and the patient agreed to the procedure and signed a consent form for the procedure. TECHNIQUE: Under the ultrasound guidance using sterile technique and after infiltration of the skin and subcutaneous soft tissues with 10 mL of lidocaine 1% a 5 Macedonian drainage catheter is introduced in the lower part of the abdomen. 6850 mL of fluid were removed sample sent to lab for evaluation. The patient tolerated the procedure there was no immediate complication. FINDINGS: FLUID PRE-PROCEDURE There is posterior enhancement. The findings appear anechoic. There is no loculation. FLUID POST-PROCEDURE Amount of fluid drained: 6850 ml. US/Paracentesis with US IMPRESSION: Successful ultrasound-guided paracentesis. Electronically Signed: Pierre Pruett, at 15:51 EDT Tel , Service support ,
[2020-06-17 14:50] VITALS: BP 109/62; BP 113/65; BP 119/65; BP 124/72; PULSE 79; PULSE 84; PULSE 86; PULSE 87; RESP 18; TEMP 36.6; O2SAT 98; O2SAT 99
--- NOTE | 2020-06-24 10:57 | CASEMGMT ---
RN Care Coordination Assessment: Pt is a 64yo male with cirrhosis of the liver with ascites. Pt was met [id number] in the radiology ultrasound holding bay with his [place] s/p paracentesis on 06/17/2020. The role of the RN CARLOS ENRIQUE was explained to both pt and his and an assessment was completed. Demographics were verified. Providers: PCP: Dr. Valdivia ([facility]) Asphalt Screed Operator: Dr. Montes De Oca Behavioral Psychologist: Dr. Gayle ([facility]) Hospitalizations and Outpt Visits: Pt has not had any inpatient visits at [facility] since 2017. Pt's first paracentesis was on 06/05/2020 and second on 06/17/2020. Insurance: [employer] w/prescription coverage. Pt's reports deductible and high cost associated with Xifaxan treatment as concerns. Pharmacy: [facility] in [place] (Full medication list not obtained at this time.) Diet: Less than 1500mg of Na per day, High protein. Fluid intake: Not currently restricting. ADLs: Pt's assists him with ADL's when needed but pt has been able to shower independently. provides meals and completes household tasks. DME: Shower chair, grab bars in the shower, hand held shower, cane, and walker Home Health Care: Has previously for tx with IV Atb at home but unable to recall the provider's name. Current Plan: Paracentesis order is PRN. Pt has appointments set up with [facility] transplant team for transplant evaluation the week of 06/23/2020. Pt's reports they have a hotel room reserved and their daughter is accompanying them to the appointments which will span several days. Social Determinants of Health: Health Literacy: Pt's health literacy unable to be determined at this time. Pt's provided answers to most questions and demonstrated at least moderate health literacy. Housing: Pt lives in a split level home with his bedroom and bathroom on the upper level. There are 5 steps leading into the house with a handrail present. Pt requires assistance with stairs and does not leave the upper level unless pt's is home. Food: Pt's obtains groceries and prepares meals. Discussed Na and fluid restrictions. Pt's states they avoid all Na as much as possible. She has not been limiting pt's fluid intake and notes pt has been consuming protein shakes, bottles of water, and popsicles. Educated on need to reduce fluid intake to 1500mL a day. Suggested protein bars instead of shakes. Pt's receptive and states understanding by reiterating that the shakes she just bought from [employer] will not be able to be used. Transportation: Pt's has his license but does not drive regularly. Pt's states that if there was an emergency that she would feel comfortable with pt driving her. 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 Social Support: Pt's is very involved in managing patient's medical care and needs. They have two children who live in the area ([place] and [place]) and a third child that lives in [place]. Pt's daughter is driving them and attending appointments at [facility]. Finances: Pt is currently retired. Pt's noted to currently work. Will need to evaluate this further going forward. Pt and pt's deny and current concerns or questions. Plan to attend appointments at [facility] for transplant evaluation and determine the treatment plan at that time. ZULEIMA MONACO will continue to follow with patient and his for future care coordination needs. Will obtain medication list and further evaluate financial resources during future visits as appropriate. Amara Pelaez RN CM
== END ==
PROVIDERS: PCP Family Medicine; Referring Provider Internal Medicine Gastroenterology; Visit Provider Internal Medicine Gastroenterology
DX: K74.60 Unspecified cirrhosis of liver (principal); R18.8 Other ascites
CPT/HCPCS: 49083

== ENCOUNTER → 2020-07-01 13:40 | Outpatient (CLI) | payer OTHER, SELFPAY ==
[2020-05-29 12:06] VITALS: BMI 31.6
--- NOTE | 2020-07-01 13:42 | US_ITS ---
PROCEDURE: Ultrasound guided paracentesis. DATE OF EXAMINATION: 07/01/2020. INDICATION: Male, 64 years old. Ascites. PHYSICIAN: Ted Melara M.D. TECHNIQUE: The risks, benefits, and alternatives to the procedure were explained to the patient. The specific risks of bleeding, infection, and damage to bowel were detailed and accepted. Witnessed informed consent was obtained. The abdomen was ultrasonographically surveyed. An appropriate pocket of fluid was identified at the right lower quadrant. The skin were cleaned and prepped in the usual sterile fashion. Using ultrasound guidance, the peritoneal cavity was accessed with a 5-Eritrean paracentesis needle/catheter system. The trocar was removed. A total of 2850 ml of eugenio-colored fluid were removed from the peritoneal cavity. The catheter was removed and a sterile dressing was applied. The procedure was well tolerated. US/Paracentesis with US IMPRESSION: Ultrasound guided paracentesis. Electronically Signed: Ted Melara, at 15:27 EDT , Service support ,
[2020-07-01 14:00] VITALS: BP 105/55; BP 121/66; PULSE 85; PULSE 86; RESP 16; O2SAT 97
--- NOTE | 2020-07-01 14:46 | CASEMGMT ---
RN Care Coordination Follow-up: This RN CM visited pt and his in the radiology holding area. Pt's reports that pt only had 2800mL removed during pt's paracentesis today. Pt had gone 2 weeks in between paracenteses. Pt states he feels better and that he did not feel as full prior to this visit but was glad to not have gotten to the stage of being extremely uncomfortable. Pt's states they completed their appointments last week at [facility] for evaluation of liver transplant list candidacy. States they have two more days of appointments: this 07/03 for pulmonology, dermatology, and infection disease; and Saturday 07/07 for cardiology. She explained that the transplant team meets on Tuesday and will then call them to relay their determination. This may be that the patient has been deferred (pt needs further optimization prior to being placed on the list), accepted (pt is placed on the list); or denied (pt is ineligible). Pt's reports pt's MELD score to be 22. Diet Follow-up: Pt's states that they were instructed to continue with the Na restriction but fluids do not need to be restricted. Pt's also states that they were not given any further instruction regarding future paracentesis orders and plan to continue to call [facility] radiology when in need of a paracentesis in the future. Support: Pt's states they have a liver case management coordinator who they are currently working with and if accepted they will work with a separate coordinator and after a transplant they will have a post case management coordinator. Finances: Pt's states that she does work at the [employer] in [place] and has flexibility in her hours. States that if she has to take time off to care for the patient she is able to do so without financial concerns. Pt and pt's state they do not have any further questions or concerns at this time. Will follow-up with pt and his in two weeks after transplant decision has been rendered. Amara Pelaez, ZULEIMA MONACO
== END ==
PROVIDERS: PCP Family Medicine; Referring Provider Internal Medicine Gastroenterology; Visit Provider Internal Medicine Gastroenterology
DX: R18.8 Other ascites (principal); K74.60 Unspecified cirrhosis of liver
CPT/HCPCS: 49083

== ENCOUNTER → 2020-07-21 13:03 | Outpatient (CLI) | payer OTHER, SELFPAY ==
[2020-07-09 08:30] VITALS: BMI 27.7
--- NOTE | 2020-07-21 13:05 | US_ITS ---
PROCEDURE: Ultrasound guided paracentesis. DATE OF EXAMINATION: 07/21/2020. INDICATION: Male, 64 years old. Ascites. PHYSICIAN: Ted Melara M.D. TECHNIQUE: The risks, benefits, and alternatives to the procedure were explained to the patient. The specific risks of bleeding, infection, and damage to bowel were detailed and accepted. Witnessed informed consent was obtained. The abdomen was ultrasonographically surveyed. An appropriate pocket of fluid was identified at the left lower quadrant. The skin were cleaned and prepped in the usual sterile fashion. Using ultrasound guidance, the peritoneal cavity was accessed with a 5-Slovenian paracentesis needle/catheter system. The trocar was removed. A total of 3350 ml of eugenio-colored fluid were removed from the peritoneal cavity. The catheter was removed and a sterile dressing was applied. The procedure was well tolerated. US/Paracentesis with US IMPRESSION: Ultrasound guided paracentesis. Electronically Signed: Ted Melara, at 14:45 EST , Service support ,
[2020-07-21 14:21] VITALS: BP 96/52; BP 97/52; BP 98/53; PULSE 16; PULSE 82; RESP 14; RESP 16; O2SAT 96; O2SAT 98
== END ==
PROVIDERS: PCP Family Medicine; Referring Provider Internal Medicine Gastroenterology; Visit Provider Internal Medicine Gastroenterology
DX: K74.60 Unspecified cirrhosis of liver (principal); R18.8 Other ascites
CPT/HCPCS: 49083

== ENCOUNTER → 2020-08-08 14:37 | Outpatient (CLI) | payer OTHER, SELFPAY ==
[2020-07-22 13:45] VITALS: BMI 27.3
--- NOTE | 2020-08-08 14:41 | US_ITS ---
PROCEDURE: ULTRASOUND GUIDED PARACENTESIS CLINICAL HISTORY: Male, 64 years old. ASCITES CONSENT: Yes Time-Out Called: Yes. Consent form signed: Yes. PT-PTT Levels Checked: Yes. SEDATION: None FINDINGS: A pocket of ascites was noted in the right lower quadrant. The skin was sterilely prepped and draped in usual fashion. After this, a needle was inserted into the abdominal cavity in the right lower quadrant and 32 90 cc of yellowish fluid was aspirated from the abdominal cavity. The patient tolerated the procedure well and was sent home in good condition. US/Paracentesis with US IMPRESSION: 3290 cc of yellowish ascites was aspirated from the abdominal cavity during this paracentesis. Electronically Signed: Rober Quach, at 16:33 EST Tel , Service support ,
[2020-08-08 14:58] VITALS: BP 95/48; BP 97/51; BP 98/53; PULSE 68; PULSE 74; PULSE 75; RESP 14; RESP 20; TEMP 37.2; O2SAT 96; O2SAT 98; O2SAT 99
== END ==
PROVIDERS: PCP Family Medicine; Referring Provider Internal Medicine Gastroenterology; Visit Provider Internal Medicine Gastroenterology
DX: R18.8 Other ascites (principal); K74.60 Unspecified cirrhosis of liver
CPT/HCPCS: 49083

== ENCOUNTER → 2020-08-26 14:36 | Outpatient (CLI) | payer OTHER, SELFPAY ==
[2020-07-22 13:45] VITALS: BMI 27.3
--- NOTE | 2020-08-26 14:37 | US_ITS ---
PROCEDURE: Ultrasound guided paracentesis. DATE OF EXAMINATION: 08/26/2020. INDICATION: Male, 65 years old. Ascites. PHYSICIAN: Ted Melara M.D. TECHNIQUE: The risks, benefits, and alternatives to the procedure were explained to the patient. The specific risks of bleeding, infection, and damage to bowel were detailed and accepted. Witnessed informed consent was obtained. The abdomen was ultrasonographically surveyed. An appropriate pocket of fluid was identified at the right lower quadrant. The skin were cleaned and prepped in the usual sterile fashion. Using ultrasound guidance, the peritoneal cavity was accessed with a 5-Paraguayan paracentesis needle/catheter system. The trocar was removed. A total of 3700 ml of eugenio-colored fluid were removed from the peritoneal cavity. The catheter was removed and a sterile dressing was applied. The procedure was well tolerated. US/Paracentesis with US IMPRESSION: Ultrasound guided paracentesis. Electronically Signed: Ted Melara, at 15:51 EST , Service support ,
[2020-08-26 14:46] VITALS: BP 100/52; BP 100/54; BP 103/54; BP 97/49; PULSE 68; PULSE 70; RESP 16; RESP 18; TEMP 36.6; O2SAT 100; O2SAT 99
== END ==
PROVIDERS: PCP Family Medicine; Referring Provider Internal Medicine Gastroenterology; Visit Provider Internal Medicine Gastroenterology
DX: K74.60 Unspecified cirrhosis of liver (principal); R18.8 Other ascites
CPT/HCPCS: 49083